=== PATIENT | male | born 1935 | race Caucasian/White ===

== ENCOUNTER 2018-01-21 08:54 | Observation (INO) | payer MEDICARE, BC ==
[2018-01-21] VITALS (17 sets, daily range): BP systolic 94–148; BP diastolic 58–82
[~2018-01-21] VITALS: Ht 177.8 cm; Wt 67.2 kg
[2018-01-21] MEDS ORDERED: COLE1TAB2 PO (09:32)
[2018-01-21] MEDS ORDERED: MAGN400T3 PO (09:32)
[2018-01-21] MEDS ORDERED: SIMV40TA3 PO (09:32)
[2018-01-21] MEDS ORDERED: CHOL10003 PO (09:32)
[2018-01-21 09:36] LABS: HEMATOCRIT 46.3 % (39.0-53.0); HEMOGLOBIN 15.6 g/dL (13.0-17.5); RED BLOOD COUNT 5.18 x10^6/uL (4.30-5.70); RED CELL DISTRIBUTION WIDTH 13.5 % (11.5-14.5); WHITE BLOOD COUNT 11.1 x10^3/uL (4.0-11.0)
[2018-01-21] MEDS ORDERED: BUDE10.22 IH (09:38)
[2018-01-21] MEDS ORDERED: AMLO5TAB7 PO (09:38)
[2018-01-21] MEDS ORDERED: CARV12.52 PO (09:38)
[2018-01-21] MEDS ORDERED: CARI350T PO (09:38)
[2018-01-21] MEDS ORDERED: OMEP40CA5 PO (09:38)
[2018-01-21] MEDS ORDERED: METF500T16 PO (09:38)
[2018-01-21] MEDS ORDERED: GLIM4TAB PO (09:38)
[2018-01-21 09:47] LABS: CALCIUM 9.9 mg/dL (8.5-10.1); CREATININE 1.1 mg/dL (0.7-1.3); GFR 64.2; POTASSIUM 4.3 mmol/L (3.5-5.1)
[2018-01-21 09:50] LABS: PROTHROMBIN TIME PATIENT 13.4 SEC (11.7-14.0)
[2018-01-21] MEDS ORDERED: LIDOCAINE 1% PF 2 ML VIAL. ONE (10:27)
[2018-01-21] MEDS ORDERED: IODIXANOL 320 MG/ML 100 ML VIAL. ONE ×2 (10:27→10:59)
[2018-01-21] MEDS ORDERED: HEPARIN for IV BOLUS 10,000 UNIT/10 ML VIAL. ONE (10:37)
[2018-01-21] MEDS ORDERED: fentaNYL PF VIAL 100 MCG/2 ML VIAL ONE (10:37)
[2018-01-21] MEDS ORDERED: VERAPAMIL 5 MG/2 ML VIAL. ONE (10:37)
[2018-01-21] MEDS ORDERED: MIDAZOLAM HCL/PF 2 MG/2 ML VIAL. ONE (10:37)
[2018-01-21] MEDS ORDERED: NITROGLYCERIN 200 MCG/2 ML SYRINGE FOR CATH/VASC LAB. ONE ×2 (10:37→11:09)
[2018-01-21] MEDS ORDERED: BIVALIRUDIN 250 MG VIAL. IV ONE ×2 (10:54→11:15)
[2018-01-21] MEDS ORDERED: NITROGLYCERIN 200 MCG/2 ML SYRINGE FOR CATH/VASC LAB. IART ONE (11:15)
[2018-01-21] MEDS ORDERED: VERAPAMIL 5 MG/2 ML VIAL. IART ONE (11:15)
[2018-01-21] MEDS ORDERED: ASPIRIN CHEWABLE 81 MG TABLET. PO ONE (11:15)
[2018-01-21] MEDS ORDERED: HEPARIN for IV BOLUS 10,000 UNIT/10 ML VIAL. IART ONE (11:15)
[2018-01-21] MEDS ORDERED: TICAGRELOR 90 MG TABLET. PO ONE (11:15)
[2018-01-21] MEDS ORDERED: fentaNYL PF VIAL 100 MCG/2 ML VIAL IV ONE (11:15)
[2018-01-21] MEDS ORDERED: IV NORMAL SALINE 500ML BAG 500 ML IV ONE (11:15)
[2018-01-21] MEDS ORDERED: MIDAZOLAM HCL/PF 2 MG/2 ML VIAL. IV ONE (11:15)
[2018-01-21] MEDS ORDERED: LIDOCAINE 1% PF 2 ML VIAL. INJ ONE (11:15)
[2018-01-21] MEDS ORDERED: IODIXANOL 320 MG/ML 100 ML VIAL. IART ONE (11:15)
[2018-01-21] MEDS ORDERED: TICAGRELOR 90 MG TABLET. ONE (11:25)
[2018-01-21] MEDS ORDERED: ASPIRIN 325 MG TABLET ONE (11:25)
[2018-01-21] MEDS ORDERED: ASPIRIN 325 MG TABLET PO ONE (11:30)
[2018-01-21] MEDS: CARVEDILOL 12.5 MG TABLET. PO SCH (17:00)
[2018-01-21] MEDS: BUDESONIDE 0.5 MG/2 ML NEBU. NEB SCH (19:27)
[2018-01-21] MEDS: ALBUTEROL SULFATE 2.5 MG/3 ML NEBU. NEB SCH (19:27)
[2018-01-21] MEDS ORDERED: NON FORMULARY ITEM (Budesonide/Formoterol Fumarate (Symbicort 80-4.5 Mcg Inhaler) 1 PUFF) IH SCH (21:00)
[2018-01-21] MEDS ORDERED: SIMVASTATIN 40 MG TABLET. PO SCH (21:00)
[2018-01-21] MEDS: CARISOPRODOL 350 MG TABLET PO SCH (21:27)
[2018-01-21] MEDS: TICAGRELOR 90 MG TABLET. PO SCH (22:56)
[2018-01-22 02:30] VITALS: BP 135/74
[2018-01-22] MEDS ORDERED: PANTOPRAZOLE 40 MG TABLET.DR. PO SCH (07:30)
[2018-01-22 07:37] VITALS: BP 124/77
[2018-01-22] MEDS ORDERED: ASPIRIN ENTERIC COATED 81 MG TABLET.DR. PO SCH (08:00)
[2018-01-22] MEDS: CARISOPRODOL 350 MG TABLET PO SCH (08:57)
[2018-01-22] MEDS: TICAGRELOR 90 MG TABLET. PO SCH (09:00)
[2018-01-22] MEDS ORDERED: CHOLECALCIFEROL (VITAMIN D3) 1,000 UNIT TABLET PO SCH (09:00)
[2018-01-22] MEDS ORDERED: MAGNESIUM OXIDE 400 MG TABLET PO SCH (09:00)
[2018-01-22] MEDS ORDERED: amLODIPine BESYLATE 5 MG TABLET PO SCH (09:00)
[2018-01-22] MEDS ORDERED: COLESTIPOL HCL 1 GM TABLET PO SCH (09:00)
[2018-01-22] MEDS ORDERED: GLIMEPIRIDE 2 MG TABLET. PO SCH (09:00)
[2018-01-22] MEDS: CARVEDILOL 12.5 MG TABLET. PO SCH (09:00)
[2018-01-22] MEDS: ALBUTEROL SULFATE 2.5 MG/3 ML NEBU. NEB SCH ×2 (09:06→12:33)
[2018-01-22] MEDS: BUDESONIDE 0.5 MG/2 ML NEBU. NEB SCH (09:07)
[2018-01-22 10:50] VITALS: BP 131/68
--- NOTE | 2018-01-22 12:25 | CARD ---
MR#: [id number] Date of Study: 01/21/2018 Ordering Physician: ISMAEL LEES, Referring Physician: ISMAEL LEES, Tech: RT Dilshad (R) APPROVED REPORT Technologist: Gregoria Womack RT (R) Nurse: Trena Howell R.N. Procedure(s) performed: moderate sedation: 54 minutes C, Coronary angiography, PCI of the LAD HISTORY : The patient is a 82 year-old male with a history of . INDICATION The indication(s) include : unstable angina . PROCEDURE NARRATIVE INFORMED CONSENT: After explaining the risks and benefits of the procedure and alternatives, informed consent was obtained. The patient was brought electively to the cardiac catheterization lab. A timeout was performed confi rming the patient's name, date of , procedure, and site of procedure. All necessary personnel w ere wearing the appropriate protective equipment and radiation monitor devices. (See nursing notes for medications administered). ACCESS: The right wrist was sterilely prepped and draped in the usual fashion. The right wrist was infiltrat ed with 1 mL of 2% lidocaine for subcutaneous anesthesia. A 6 [place]er Terumo glide sheath was inserte d into the right radial artery without difficulty. CORONARY ANGIOGRAPHY: Right and left coronary angiography was performed using a 6Fr TIG 4.0 catheter. Left ventricular en d diastolic pressure was obtained with a pigtail catheter and pullback was performed after left ventr iculography. All catheter exchanges and advancements were performed over a guidewire. FINDINGS: HEMODYNAMICS: LVEDP 17 mm Hg No gradient on LV to aortic pullback. AO: 128/78 LEFT VENTRICULOGRAM: EF 50% Anterobasal: Normal. Anterolateral: Severely hypokinetic. Apical: Mildly hypokinetic. Diaphragmatic: Normal Posterobasal: Normal CORONARY ANGIOGRAPHY: LM is a large caliber vessel with normal angiographic appearance. LAD is a large caliber vessel with a proximal 95% stenosis. D1 is a small to moderate caliber vessel with mild diffuse disease. LCx is a moderate caliber non-dominant vessel with mild diffuse irregularities of up to 20%. OM1 is a moderate caliber vessel with normal angiographic appearance. RCA is a large caliber dominant vessel with mild diffuse irregularities of up to 20%. RPDA and RPL are moderate caliber vessels with normal angiographic appearance. INTERVENTIONAL TECHNIQUE: Bivalirudin was used for an to regulation. Through a 6 [place]er EBU 3.5 guide catheter a 0.014 inch pro -water wire was advanced to the distal LAD. Balloon angioplasty was performed with a 3.0 x 15 mm ball oon and the lesion was then stented in the LAD with a 4.0 x 18 mm drug-eluting stent and postdilated with a 4.0 mm noncompliant balloon at high atmospheres. An IVUS was performed and this revealed excel lent stent apposition and expansion. CLOSURE: At case completion the right radial sheath was removed and a Terumo radial band was applied with 13 m l of air. The patient received Ticagrelor 180mg at case completion. COMPLICATIONS: The patient tolerated the procedure well and there were no immediate complications. Conclusion 1. 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 Successful PCI with implanatation of a 4.0/18 mm ANH, confirming excellent placement by IVUS. Recommendations ASA 81 mg daily Ticagrelor 90mg bid for 1 full year. High dose statin therapy Cardiac rehab. Supportive care. Signed by : Ismael Lees, Electronically Approved : 01/22/2018 12:24:47
[2018-01-22] MEDS ORDERED: ATOR40TA PO (12:56)
[2018-01-22] MEDS ORDERED: ASPI-612 PO (12:56)
[2018-01-22] MEDS ORDERED: TICA90TA PO (12:56)
--- NOTE | 2018-01-22 12:56 | PDOC3 ---
BROOKE LI IDENTIFICATION AND RECORDS COMMANDER 01/22/18 1256: Discharge Summary Visit Information Date of Admission: Jan 21, 2018 Date of Discharge: Jan 22, 2018 Admitting Diagnosis: Unstable angina, abnormal EKG Final Diagnosis CAD, S/P PCI/ANH to LAD Brief Hospital Course Allergies Allergies Coded Allergies Type Severity Reaction Last Updated Verified latex Allergy Intermediate rash/blisters, 01/21/18 Yes Vital Signs Vital Signs Date Time Temp Pulse Resp B/P (MAP) Pulse Ox O2 Delivery O2 Flow Rate FiO2 01/22/18 12:34 95 Room Air 01/22/18 10:50 98.5 100 18 131/68 (89) 98.5 01/21/18 18:25 2.0 Lab Results Laboratory Tests Test 01/21/18 09:20 White Blood Count 11.1 x10^3/uL (4.0-11.0) Red Blood Count 5.18 x10^6/uL (4.30-5.70) Hemoglobin 15.6 g/dL (13.0-17.5) Hematocrit 46.3 % (39.0-53.0) Mean Corpuscular Volume 90 fL (79-100) Mean Corpuscular Hemoglobin 30 pg (25-35) Mean Corpuscular Hemoglobin Concent 34 g/dL (31-37) Red Cell Distribution Width 13.5 % (11.5-14.5) Platelet Count 268 x10^3/uL (140-400) Prothrombin Time 13.4 SEC (11.7-14.0) Prothromb Time International Ratio 1.1 (0.8-1.1) Sodium Level 143 mmol/L (136-145) Potassium Level 4.3 mmol/L (3.5-5.1) Chloride Level 101 mmol/L (98-107) Carbon Dioxide Level 30 mmol/L (21-32) Anion Gap 12 (6-14) Blood Urea Nitrogen 29 mg/dL (8-26) Creatinine 1.1 mg/dL (0.7-1.3) Estimated GFR (Cockcroft-Gault) 64.2 Glucose Level 205 mg/dL (70-99) Calcium Level 9.9 mg/dL (8.5-10.1) Brief Hospital Course Mr. Queen is an 82 yo male admitted for planned C. He was seen in our office and noted with unstable angina features with abnormal EKG. [facility] performed and noted with proximal LAD lesion prompting PCI/ANH to LAD via right transradial approach. He tolerated procedure well without complications. Right wrist arteriotomy site intact with no erythema or swelling with intact neurovasculat status to right hand. VSS, ambulatory and no CP or SOA overnight and no rhythm ectopies. I did discussed with him the changes to his medications including switching from zocor to lipitor and addition of brilinta and ASA to his regimen. Also explained the need for timely interval separation of colestid use to avoid absorption issues with the rest of his medications and to be able to resume metformin tomorrow afternoon. Cardiac rehab has been encouraged with post [facility] discharge care. Rx provided for brilinta and lipitor both for immediate fill and mail in refill. Follow up in office in 4 weeks. Discharge Information Condition at Discharge: Stable Follow Up: Weeks (4) Disposition/Orders: D/C to Home Scheduled Amlodipine Besylate (Amlodipine Besylate) 5 Mg Tablet, 5 MG PO DAILY for high blood pressure, (Reported) Entered as Reported by: Ailyn Regalado on 01/21/18937 Last Taken: Unknown Dose on 01/21/18 Last Action: Continued on 01/21/181518 by BRIAN RODRIGEZ Aspirin (Aspirin Ec) 81 Mg Tablet.dr, 81 MG PO DAILYWBKFT for CAD, #30 Prescribed by: BROOKE LI on 01/22/18 1256 Atorvastatin Calcium (Lipitor) 40 Mg Tablet, 1 TAB PO QHS for CAD, #30 Ref 1 Prescribed by: BROOKE LI on 01/22/18 1256 Budesonide/Formoterol Fumarate (Symbicort 80-4.5 Mcg Inhaler) 10.2 Gm Hfa.aer.ad , 1 PUFF IH BID for copd, (Reported) Entered as Reported by: Ailyn Regalado on 01/21/18937 Last Action: Converted on 01/21/181518 by BRIAN RODRIGEZ Carisoprodol (Soma) 350 Mg Tablet, 1 TAB PO BID for pain, #60 (Reported) Entered as Reported by: Ailyn Regalado on 01/21/18937 Last Taken: Unknown Dose on 01/20/18 Last Action: Continued on 01/21/181518 by BRIAN RODRIGEZ Carvedilol (Carvedilol) 12.5 Mg Tablet, 1 TAB PO BID for lower heartate, #180 Ref 1 (Reported) Entered as Reported by: Ailyn Regalado on 01/21/18937 Last Taken: Unknown Dose on 01/21/18 Last Action: Continued on 01/21/181518 by BRIAN RODRIGEZ Cholecalciferol (Vitamin D3) (Vitamin D3) 1,000 Unit Tablet, 2,000 TAB PO DAILY for deficiency, #30 Ref 5 (Reported) Entered as Reported by: Ailyn Regalado on 01/21/18931 Last Taken: Unknown Dose on 01/21/18 Last Action: Continued on 01/21/181518 by BRIAN RDORIGEZ Colestipol Hcl (Colestipol Hcl) 1 Gm Tablet, 2 GM PO 1X for lowers cholesterol, (Reported) Entered as Reported by: Ailyn Regalado on 01/21/18931 Last Taken: Unknown Dose on 01/20/18 Last Action: Continued on 01/21/181518 by BRIAN RODRIGEZ Glimepiride (Amaryl) 4 Mg Tablet, 1 TAB PO DAILY for diabetic, #30 Ref 5 ( Reported) Entered as Reported by: Ailyn Regalado on 01/21/18937 Last Action: Converted on 01/21/181518 by BRIAN RODRIGEZ Magnesium Oxide (Magnesium Oxide) 400 Mg Tablet, 250 TAB PO DAILY for deficiency , #30 Ref 5 (Reported) Entered as Reported by: Ailyn Regalado on 01/21/18931 Last Taken: Unknown Dose on 01/21/18 Last Action: Converted on 01/21/181518 by BRIAN RODRIGEZ Metformin Hcl (Metformin Hcl) 500 Mg Tablet, 500 MG PO BIDWMEALS for ANTI- DIABETIC, Ref 0 (Reported) Entered as Reported by: Ailyn Regalado on 01/21/18937 Last Action: New Order on 01/21/18937 by Ailyn Regalado Omeprazole (Omeprazole) 40 Mg Capsule.dr, 1 CAP PO DAILY for GERD, #30 Ref 3 ( Reported) Entered as Reported by: Ailyn Regalado on 01/21/18937 Last Taken: Unknown Dose on 01/21/18 0800 Last Action: Converted on 1518 by BRIAN RODRIGEZ Ticagrelor (Brilinta) 90 Mg Tablet, 90 MG PO BID for CAD, #60 Prescribed by: BROOKE LI on 01/22/18 1256 Discontinued Medications Simvastatin (Simvastatin) 40 Mg Tablet, 1 TAB PO QHS for lowers cholesterol, # 30 Ref 5 (Reported) Entered as Reported by: Ailyn Sabine on 01/21/18 0932 Last Taken: Unknown Dose on 01/20/18 Last Action: Converted on 01/21/181518 by BRIAN RODRIGEZ Patient Instructions Patient Instructions GENERAL INSTRUCTIONS: 1. Your dressing should be removed prior to leaving the hospital. 2. It is OK to shower the day after your procedure. 3. If you received stents, be sure to carry your stent information card with you in your wallet/purse at all times. 4. Call the office immediately at [phone] if you notice any fever or if there is redness, worsening tenderness/pain, increased bruising, or drainage from the puncture site. 5. Should you have bleeding from the site, lie down immediately & put pressure on the site. The pressure should be hard enough to stop the bleeding. Have the nearest person call 911. DO NOT try to drive to the ER with active bleeding. 6. If you notice a change in color, coolness to touch, or loss of feeling in the affected extremity, come to the emergency room. Please have someone drive you or call 911 if no one is available. DO NOT drive yourself. 7. If you normally take glucophage (metformin), please do not take this medicine for 48 hours following your procedure. 8. DO NOT STOP TAKING YOUR PLAVIX OR ASPIRIN UNLESS IT IS CLEARED BY A SKIDDER OF YOUR HOSPITALITY HOUSE SUPERVISOR AT OUR OFFICE. 9. QUIT SMOKING: the [place], [employer], & [place] have cessation resources available on their websites 10. Please have someone available to drive you home from the hospital as you may be limited by sedation medications given during the procedure. Radial Artery (Wrist) access: 1. No pushing, pulling, lifting, typing, or anything that requires repetitive use/movement of the affected wrist for 3 days following your procedure. 2. OK to drive the day following your procedure. (This is because of effects of sedating medications.) Call the office at [phone] for any questions or concerns. ISMAEL POSADAS MD 01/25/18 2134: Discharge Summary Brief Hospital Course Brief Hospital Course Late entry for 01/22/2018 Pt. seen and examined. Agree with above PROGRAM THERAPIST note. DC time > 30 min BROOKE LI APRN Jan 22, 2018 12:56 ISMAEL POSADAS MD Jan 25, 2018 21:34
[2018-01-22] MEDS ORDERED: GABAPENTIN 100 MG CAPSULE. PO SCH (14:00)
[2018-01-22] MEDS ORDERED: LORazepam 0.5 MG TABLET PO PRN (14:00)
[2018-01-22] MEDS ORDERED: LORazepam 1 MG TABLET PO PRN (14:00)
== END 2018-01-22 13:55 | disposition home or self-care (01) ==
LOC: CCL 08:54 → OBSVTOIN 12:30 → INTOOBSV 12:30 → 2 NORTH 12:30
PROVIDERS: ADMIT Internal Medicine Cardiovascular Disease; ATTEND Internal Medicine Cardiovascular Disease
DX: I25.110 Atherosclerotic heart disease of native coronary artery with unstable angina pectoris (principal); Z91.040 Latex allergy status
CPT/HCPCS: 36415; 80048; 85027; 85610; 93458; 94640; 94760; 96374; 96375; C1713; C1725; C1753; C1769; C1887; C1892; C9600; G0378; G0379; J0583; J1644; J2250; J3010; J3490; J7040; J7613; J7626; 37252; 92928; 99152; 99153

== ENCOUNTER → 2018-03-08 | Outpatient (CLI) | payer MEDICARE, BC ==
[~2018-03-08] MED LIST: AMLO5TAB7 PO; ASPI-612 PO; ATOR40TA PO; BUDE10.22 IH; CARI350T PO; CARV12.511 PO; CHOL10003 PO; COLE1TAB2 PO; GLIM4TAB PO; MAGN400T3 PO; METF500T16 PO; OMEP40CA5 PO; SIMV40TA3 PO; TICA90TA PO
--- NOTE | 2018-03-08 16:32 | RAD ---
PA and lateral chest x-ray without comparison for dyspnea and shortness of breath for the past couple of months. FINDINGS: There is mild hyperinflation. No pneumothorax, pleural effusion, congestive heart failure, or focal infiltrate is definitely identified. Cardiomediastinum is grossly unremarkable. No significant soft tissue or osseous abnormalities are seen. Prior cholecystectomy. IMPRESSION: 1. Mild hyperinflation with no acute cardiopulmonary abnormality. Electronically signed by: Nigel Johnson MD (03/08/2018 4:28 PM) [facility]
== END | disposition home or self-care (01) ==
LOC: RAD 10:04
PROVIDERS: ATTEND Internal Medicine Pulmonary Disease
DX: R06.00 Dyspnea, unspecified (principal); Z90.49 Acquired absence of other specified parts of digestive tract
CPT/HCPCS: 71046

== ENCOUNTER 2018-04-20 17:13 | Inpatient (IN) | payer MEDICARE, BC ==
[~2018-04-20] VITALS: Ht 177.8 cm; Wt 61.8 kg
[~2018-04-20 17:13] MED LIST changes: +AMLO5TAB10 PO; -AMLO5TAB7 PO
[2018-04-20] MEDS ORDERED: MORPHINE SULFATE 4 MG/ML VIAL. IV/SQ PRN (18:15)
[2018-04-20] MEDS ORDERED: PIPERACILLIN/TAZOBACTAM 4.5 GM in IV NORMAL SALINE 100ML 100 ML IV ONE (18:15)
[2018-04-20] MEDS ORDERED: VANCOMYCIN PER PHARMACY MC ONE (18:15)
[2018-04-20] MEDS ORDERED: VANCOMYCIN 1.5 GM in IV NORMAL SALINE 500ML BAG 500 ML IV ONE (18:30)
[2018-04-20 18:35] LABS: BASO # 0.1 x10^3/uL (0.0-0.2); BASO % 0 % (0-3); EOS % 0 % (0-3); HEMATOCRIT 38.1 % (39.0-53.0); HEMOGLOBIN 12.4 g/dL (13.0-17.5); LYMPH # 0.6 x10^3/uL (1.0-4.8); LYMPH % 5 % (24-48); MEAN CORPUSCULAR HEMOGLOBIN 29 pg (25-35); MEAN CORPUSCULAR HGB CONC 33 g/dL (31-37); MEAN CORPUSCULAR VOLUME 88 fL (79-100); MONO # 0.5 x10^3/uL (0.0-1.1); MONO % 3 % (0-9); NEUT # 12.3 x10^3uL (1.8-7.7); NEUT % 92 % (31-73); PLATELET COUNT 379 x10^3/uL (140-400); RED BLOOD COUNT 4.31 x10^6/uL (4.30-5.70); RED CELL DISTRIBUTION WIDTH 13.9 % (11.5-14.5); WHITE BLOOD COUNT 13.4 x10^3/uL (4.0-11.0)
[2018-04-20 18:42] LABS: BILIRUBIN,URINE NEGATIVE (NEG); CLARITY,URINE CLEAR; COLOR,URINE YELLOW; NITRITE,URINE NEGATIVE (NEG); PROTEIN,URINE NEGATIVE (NEG-TRACE); UROBILINOGEN,URINE 0.2 mg/dL (0.2 mg/dL)
--- NOTE | 2018-04-20 18:48 | PHYS DOC ---
Past Medical History Past Medical History: CAD, COPD, Diabetes-Type II, High Cholesterol, Hypertension, Other Additional Past Medical Histor: enlarged prostate (BON MELARA APRN) Past Surgical History: Cholecystectomy, TURP, Other Additional Past Surgical Histo: cardiac cath with stent; (BON MELARA APRN) Alcohol Use: Rarely Drug Use: None (BON MELARA APRN) Adult General Chief Complaint Chief Complaint: ABDOMINAL PAIN HPI HPI Patient is a 82 year old male with history of hypertension, high cholesterol, CAD, COPD, diabetes type 2, who presents today stating he had an outpatient CT of the abdomen and pelvic and was noted to have perforated bowel and multiple abscesses in his stomach. Patient states he has had nausea, vomiting, diarrhea and bloody stools intermittently for 2 weeks. He states he has lost approximately 20 pounds since February without trying. Patient denies any fever. (BON MELARA APRN) Review of Systems Review of Systems Constitutional: Denies fever or chills [] Eyes: Denies change in visual acuity, redness, or eye pain [] HENT: Denies nasal congestion or sore throat [] Respiratory: Denies cough or shortness of breath [] Cardiovascular: No additional information not addressed in HPI [] GI: Reports bilateral lower abdominal pain, nausea, vomiting, diarrhea, bloody stools] : Denies dysuria or hematuria [] Musculoskeletal: Denies back pain or joint pain [] Integument: Denies rash or skin lesions [] Neurologic: Denies headache, focal weakness or sensory changes [] All other systems were reviewed and found to be within normal limits, except as documented in this note. (BON MELARA APRN) Current Medications Current Medications Current Medications Medications (Trade) Dose Ordered Sig/Annie Start Time Stop Time Status Last Admin Dose Admin Insulin Human Regular (HumuLIN R VIAL) 8 unit 1X ONCE 04/20/18 19:15 04/20/18 19:29 DC 04/20/18 19:33 8 UNIT Morphine Sulfate (Morphine Sulfate) 4 mg PRN Q15MIN PRN 04/20/18 18:15 04/21/18 18:14 Piperacillin Sod/ Tazobactam Sod 4.5 gm/Sodium Chloride 100 ml @ 200 mls/hr 1X ONCE 04/20/18 18:15 04/20/18 18:44 DC 04/20/18 18:58 200 MLS/HR Sodium Chloride 1,000 ml @ 2,190 mls/hr Q28M 04/20/18 18:09 04/20/18 19:06 DC 04/20/18 19:39 2,190 MLS/HR Vancomycin HCl (Vanco Per Pharmacy) 1 each 1X ONCE 04/20/18 18:15 04/20/18 18:16 Cancel Vancomycin HCl 1.5 gm/Sodium Chloride 500 ml @ 250 mls/hr 1X ONCE 04/20/18 18:30 04/20/18 20:29 DC 04/20/18 19:35 250 MLS/HR (RIKY ALBRIGHT DO) Allergies Allergies Allergies Coded Allergies Type Severity Reaction Last Updated Verified latex Allergy Intermediate rash/blisters, 01/21/18 Yes (RIKY ALBRIGHT DO) Physical Exam Physical Exam Constitutional: Well developed, well nourished, no acute distress, non-toxic appearance. [] HENT: Normocephalic, atraumatic, bilateral external ears normal, oropharynx moist, no oral exudates, nose normal. [] Eyes: PERRLA, EOMI, conjunctiva normal, no discharge. [] Neck: Normal range of motion, no tenderness, supple, no stridor. [] Cardiovascular:Heart rate regular rhythm, no murmur [] Lungs & Thorax: Bilateral breath sounds clear to auscultation [] Abdomen: Bowel sounds normal, soft, diffuse tenderness bilateral lower abdomen worse on the right lower quadrant, negative psoas sign, negative obturator sign , no masses, no pulsatile masses. [] Skin: Warm, dry, no erythema, no rash. [] Back: No tenderness, no CVA tenderness. [] Extremities: No tenderness, no cyanosis, no clubbing, ROM intact, no edema. [] Neurologic: Alert and oriented X 3, normal motor function, normal sensory function, no focal deficits noted. [] Psychologic: Affect normal, judgement normal, mood normal. [] (BON MELARA APRN) Current Patient Data Vital Signs Vital Signs Date Time Temp Pulse Resp B/P (MAP) Pulse Ox O2 Delivery O2 Flow Rate FiO2 04/20/18 19:21 114 16 147/74 (98) 94 Room Air 04/20/18 17:30 98.8 98.8 (RIKY ALBRIGHT DO) Lab Values Laboratory Tests Test 04/20/18 17:20 04/20/18 18:20 04/20/18 18:48 Urine Collection Type Unknown Urine Color Yellow Urine Clarity Clear Urine pH 5.0 Urine Specific Gates >=1.030 Urine Protein Negative mg/dL (NEG-TRACE) Urine Glucose (UA) >=1000 mg/dL (NEG) Urine Ketones (Stick) Trace mg/dL (NEG) Urine Blood Negative (NEG) Urine Nitrite Negative (NEG) Urine Bilirubin Negative (NEG) Urine Urobilinogen Dipstick 0.2 mg/dL (0.2 mg/dL) Urine Leukocyte Esterase Negative (NEG) Urine RBC 0 /HPF (0-2) Urine WBC 0 /HPF (0-4) Urine Bacteria 0 /HPF (0-FEW) White Blood Count 13.4 x10^3/uL (4.0-11.0) H Red Blood Count 4.31 x10^6/uL (4.30-5.70) Hemoglobin 12.4 g/dL (13.0-17.5) L Hematocrit 38.1 % (39.0-53.0) L Mean Corpuscular Volume 88 fL (79-100) Mean Corpuscular Hemoglobin 29 pg (25-35) Mean Corpuscular Hemoglobin Concent 33 g/dL (31-37) Red Cell Distribution Width 13.9 % (11.5-14.5) Platelet Count 379 x10^3/uL (140-400) Neutrophils (%) (Auto) 92 % (31-73) H Lymphocytes (%) (Auto) 5 % (24-48) L Monocytes (%) (Auto) 3 % (0-9) Eosinophils (%) (Auto) 0 % (0-3) Basophils (%) (Auto) 0 % (0-3) Neutrophils # (Auto) 12.3 x10^3uL (1.8-7.7) H Lymphocytes # (Auto) 0.6 x10^3/uL (1.0-4.8) L Monocytes # (Auto) 0.5 x10^3/uL (0.0-1.1) Eosinophils # (Auto) 0.0 x10^3/uL (0.0-0.7) Basophils # (Auto) 0.1 x10^3/uL (0.0-0.2) Segmented Neutrophils % 85 % (35-66) H Band Neutrophils % 11 % (0-9) H Lymphocytes % 1 % (24-48) L Monocytes % 1 % (0-10) Myelocytes % 2 % (0-0) H Platelet Estimate Adequate (ADEQUATE) Sodium Level 134 mmol/L (136-145) L Potassium Level 4.4 mmol/L (3.5-5.1) Chloride Level 95 mmol/L (98-107) L Carbon Dioxide Level 28 mmol/L (21-32) Anion Gap 11 (6-14) Blood Urea Nitrogen 28 mg/dL (8-26) H Creatinine 1.1 mg/dL (0.7-1.3) Estimated GFR (Cockcroft-Gault) 64.2 BUN/Creatinine Ratio 25 (6-20) H Glucose Level 529 mg/dL (70-99) *H Lactic Acid Level 1.4 mmol/L (0.4-2.0) Calcium Level 9.3 mg/dL (8.5-10.1) Total Bilirubin 0.4 mg/dL (0.2-1.0) Aspartate Amino Transferase (AST) 82 U/L (15-37) H Alanine Aminotransferase (ALT) 81 U/L (16-63) H Alkaline Phosphatase 112 U/L (46-116) Total Protein 7.4 g/dL (6.4-8.2) Albumin 2.7 g/dL (3.4-5.0) L Albumin/Globulin Ratio 0.6 (1.0-1.7) L Procalcitonin 0.15 ng/mL (0.00-0.10) H Stool Occult Blood Positive (NEG) Laboratory Tests 04/20/18 18:20 Laboratory Tests 04/20/18 18:20 (RIKY ALBRIGHT DO) EKG EKG 17:[address] Albright sinus tachycardia HR 125 no STEMI (BON MELARA APRN) Radiology/Procedures Radiology/Procedures []PROCEDURE: PORTABLE CHEST 1V Indication:ER PATIENT. HYPOGASTRIC PAIN. HX HTN, COPD, DIABETES, CORONARY STENT. PRIOR XRAY. TECHNIQUE:Portable AP chest X-ray COMPARISON:03/08/2018 FINDINGS: Heart is normal in size. Lungs are hyperinflated. No focal consolidation. No pneumothorax or pleural effusion. Visualized bony thorax within normal limits. IMPRESSION: COPD. Superimposed atypical/viral infection not ruled out. Electronically signed by: Lexx Norwood DO (04/20/2018 6:51 PM) [facility] DICTATED and SIGNED BY: LEXX NORWOOD DO DATE: 04/20/18 185 (BON MELARA APRN) Course & Med Decision Making Course & Med Decision Making Pertinent Labs and Imaging studies reviewed. (See chart for details) This is a 82-year-old male patient presenting to the ED today from home. Patient had an outpatient CT done and was informed he has perforated bowel and multiple abscesses in his abdomen. Patient states his had abdominal pain specifically on bilateral lower abdomen, nausea vomiting diarrhea and bloody stools for 2 weeks. On arrival to the ED temperature 98.8 heart rate13, resp. 20 room air blood pressure 133/89 O2 sats 95% on room air. Patient was started on sepsis protocol including IV fluids, vancomycin and Zosyn. CBC with a WBC of 13.4 and a left shift, hemoglobin 12.4, hematocrit 38.1, glucose 529, anion gap is normal, AST 82, ALT 81, lactic acid 1.4, pro calcitonin 0.15. Consulted with Dr. Negrete who accepted patient for admission Consulted with surgery Dr. Frey who will follow-up with patient Routine consult placed for GI (BON MELARA APRN) Dragon Disclaimer Dragon Disclaimer This electronic medical record was generated, in whole or in part, using a voice recognition dictation system. (BON MELARA APRN) Departure Departure Impression: Primary Impression: Perforation bowel Additional Impressions: Abdominal abscess Diverticulosis Hyperglycemia Disposition: 09 ADMITTED INPATIENT Condition: STABLE Referrals: CARISSA OVALLE MD (PCP) Attending Signature Attending Signature I have reviewed the PA/SECURITIES CLERK's note and plan of care. I was available for consultation as needed during the patient's visit in the emergency department. I agree with the clinical impression, plan, and disposition. (RIKY ALBRIGHT DO) Problem Qualifiers Additional Impressions: Diverticulosis Diverticulosis site: unspecified location Diverticulosis bleeding: diverticulosis with bleeding Qualified Codes: K57.91 - Diverticulosis of intestine, part unspecified, without perforation or abscess with bleeding BON MELARA APRN Apr 20, 2018 18:48 RIKY ALBRIGHT DO Apr 21, 2018 09:22
[2018-04-20 18:51] LABS: BACTERIA,URINE 0 /HPF (0-FEW); RBC,URINE 0 /HPF (0-2); WBC,URINE 0 /HPF (0-4)
--- NOTE | 2018-04-20 18:55 | RAD ---
Indication:ER PATIENT. HYPOGASTRIC PAIN. HX HTN, COPD, DIABETES, CORONARY STENT. PRIOR XRAY. TECHNIQUE:Portable AP chest X-ray COMPARISON:03/08/2018 FINDINGS: Heart is normal in size. Lungs are hyperinflated. No focal consolidation. No pneumothorax or pleural effusion. Visualized bony thorax within normal limits. IMPRESSION: COPD. Superimposed atypical/viral infection not ruled out. Electronically signed by: Lxex Norwood DO (04/20/2018 6:51 PM) [facility]
[2018-04-20 18:59] LABS: ALBUMIN 2.7 g/dL (3.4-5.0); ALBUMIN/GLOBULIN RATIO 0.6 (1.0-1.7); CALCIUM 9.3 mg/dL (8.5-10.1); CREATININE 1.1 mg/dL (0.7-1.3); GFR 64.2; POTASSIUM 4.4 mmol/L (3.5-5.1); TOTAL BILIRUBIN 0.4 mg/dL (0.2-1.0); TOTAL PROTEIN 7.4 g/dL (6.4-8.2)
[2018-04-20] MEDS: IV NORMAL SALINE 1000ML BAG 1,000 ML IV SCH ×4 (19:01→21:36)
[2018-04-20] MEDS ORDERED: INSULIN REGULAR 100 UNIT/ML 3ML VIAL. SQ ONE (19:15)
--- NOTE | 2018-04-20 19:19 | PDOC1 ---
History and Physical Date of Admission Date of Admission DATE: 04/20/18 TIME: 19:16 Identification/Chief Complaint Chief Complaint seen in er , sent by DR OVALLE,S OFFICE BY AMBULANCE 82 year old male with history of hypertension, high cholesterol, CAD, COPD, diabetes type 2, who presents today stating he had an outpatient CT of the abdomen and pelvic and was noted to have perforated bowel and multiple abscesses in his stomach TODAY . Patient states his had nausea vomiting and diarrhea intermittently for 2 weeks. He states he has lost approximately 40 pounds since March 09 Patient denies any fever. He states his had bloody stools for the last 2 weeks. Ate a straberry shake before coming here, and toast, states he has had severe pain on and off x 2 weeks Past Medical History Past Medical History Past Medical History Past Medical History: CAD, COPD, Diabetes-Type II, High Cholesterol, Hypertension, Other Additional Past Medical Histor: enlarged prostate Past Surgical History: Cholecystectomy, TURP, Other Additional Past Surgical Histo: cardiac cath with stent; Alcohol Use: Rarely Drug Use: None FAMILY HX HTN STOPPED SMOKING 39 YRS AGO Cardiovascular: CAD Family History Family History: High Cholestrol Social History Smoke: Quit ALCOHOL: occassional Drugs: None Current Medications Current Medications Current Medications Sodium Chloride 1,000 ml @ 2,190 mls/hr Q28M IV Last administered on at 19:01; Start 04/20/18 at 18:09; Stop 04/20/18 at 19:06; Status DC Piperacillin Sod/ Tazobactam Sod 4.5 gm/Sodium Chloride 100 ml @ 200 mls/hr 1X ONCE IV Last administered on 04/20/18at 18:58; Start 04/20/18 at 18:15; Stop 04/20/18 at 18:44; Status DC Vancomycin HCl (Vanco Per Pharmacy) 1 each 1X ONCE MC ; Start 04/20/18 at 18:15 ; Stop 04/20/18 at 18:22; Status DC Morphine Sulfate (Morphine Sulfate) 4 mg PRN Q15MIN PRN IV/SQ PAIN GREATER THAN 3/10; Start 04/20/18 at 18:15; Stop 04/21/18 at 18:14 Vancomycin HCl 1.5 gm/Sodium Chloride 500 ml @ 250 mls/hr 1X ONCE IV ; Start 04/20/18 at 18:30; Stop 04/20/18 at 20:29 Active Scripts Active Lipitor (Atorvastatin Calcium) 40 Mg Tablet 1 Tab PO QHS Aspirin Ec (Aspirin) 81 Mg Tablet. 81 Mg PO DAILYWBKFT Brilinta (Ticagrelor) 90 Mg Tablet 90 Mg PO BID Reported Soma (Carisoprodol) 350 Mg Tablet 1 Tab PO BID Omeprazole 40 Mg Capsule.dr 1 Cap PO DAILY Symbicort 80-4.5 Mcg Inhaler (Budesonide/Formoterol Fumarate) 10.2 Gm Hfa.aer.ad 1 Puff IH BID Metformin Hcl 500 Mg Tablet 500 Mg PO BIDWMEALS Amaryl (Glimepiride) 4 Mg Tablet 1 Tab PO DAILY Amlodipine Besylate 5 Mg Tablet 5 Mg PO DAILY Carvedilol 12.5 Mg Tablet 1 Tab PO BID Colestipol Hcl 1 Gm Tablet 2 Gm PO 1X Magnesium Oxide 400 Mg Tablet 250 Tab PO DAILY Vitamin D3 (Cholecalciferol (Vitamin D3)) 1,000 Unit Tablet 2,000 Tab PO DAILY Allergies Allergies: Coded Allergies: latex (Verified Allergy, Intermediate, rash/blisters, , 01/21/18) ROS Review of System Review of Systems Review of Systems Constitutional: Denies fever or chills [] Eyes: Denies change in visual acuity, redness, or eye pain [] HENT: Denies nasal congestion or sore throat [] Respiratory: Denies cough or shortness of breath [] Cardiovascular: No additional information not addressed in HPI [] GI: Denies abdominal pain, nausea, vomiting, bloody stools or diarrhea [] : Denies dysuria or hematuria [] Musculoskeletal: Denies back pain or joint pain [] Integument: Denies rash or skin lesions [] Neurologic: Denies headache, focal weakness or sensory changes [] 14 PT systems were reviewed and found to be within normal limits, except as documented General: YES: Chills Hematological and Lymphatic: No: Bleeding Problems, Blood Clots, Blood Transfusions, Brusing, Night Sweats, Pallor, Swollen Lymph Nodes, Other Cardiovascular: No Chest Pain, No Palpitations, No Orthopnea, No Paroxysmal Noc. Dyspnea, No Edema, No Lt Headedness, No Other Gastrointestinal: Yes Abdominal Pain Physical Exam Physical Exam Physical Exam Constitutional: Well developed, well nourished, MILD acute distress, non-toxic appearance. [] HENT: Normocephalic, atraumatic, bilateral external ears normal, oropharynx moist, no oral exudates, nose normal. [] Eyes: PERRLA, EOMI, conjunctiva normal, no discharge. [] Neck: Normal range of motion, no tenderness, supple, no stridor. [] Cardiovascular:Heart rate regular rhythm, no murmur [] Lungs & Thorax: Bilateral breath sounds clear to auscultation [] Abdomen: Bowel sounds normal, soft, no tenderness, no masses, no pulsatile masses. MILD TENDERNESS[] Skin: Warm, dry, no erythema, no rash. [] Back: No tenderness, no CVA tenderness. [] Extremities: No tenderness, no cyanosis, no clubbing, ROM intact, no edema. [] Neurologic: Alert and oriented X 3, normal motor function, normal sensory function, no focal deficits noted. [] Psychologic: Affect normal, judgement normal, mood normal. [] General: Oriented X3, Cooperative, mild distress HEENT: EOMI, Mucous membr. moist/pink Lungs: Clear to auscultation, Normal air movement Heart: RRR, no gallops Breasts: Not examined Abdomen: Soft Rectal Exam: not examined PELVIC: Examination not indicated Extremities: No cyanosis Neuro: Normal speech, Normal tone, Cranial nerves 3-12 NL Psych/Mental Status: Mental status NL, Mood NL Vitals Vitals Vital Signs Date Time Temp Pulse Resp B/P (MAP) Pulse Ox O2 Delivery O2 Flow Rate FiO2 04/20/18 18:53 122 16 132/84 (100) 96 Room Air 04/20/18 17:30 98.8 98.8 Labs Labs Laboratory Tests Test 04/20/18 17:20 04/20/18 18:20 Urine Collection Type Unknown Urine Color Yellow Urine Clarity Clear Urine pH 5.0 Urine Specific [place] >=1.030 Urine Protein Negative mg/dL (NEG-TRACE) Urine Glucose (UA) >=1000 mg/dL (NEG) Urine Ketones (Stick) Trace mg/dL (NEG) Urine Blood Negative (NEG) Urine Nitrite Negative (NEG) Urine Bilirubin Negative (NEG) Urine Urobilinogen Dipstick 0.2 mg/dL (0.2 mg/dL) Urine Leukocyte Esterase Negative (NEG) Urine RBC 0 /HPF (0-2) Urine WBC 0 /HPF (0-4) Urine Bacteria 0 /HPF (0-FEW) White Blood Count 13.4 x10^3/uL (4.0-11.0) Red Blood Count 4.31 x10^6/uL (4.30-5.70) Hemoglobin 12.4 g/dL (13.0-17.5) Hematocrit 38.1 % (39.0-53.0) Mean Corpuscular Volume 88 fL (79-100) Mean Corpuscular Hemoglobin 29 pg (25-35) Mean Corpuscular Hemoglobin Concent 33 g/dL (31-37) Red Cell Distribution Width 13.9 % (11.5-14.5) Platelet Count 379 x10^3/uL (140-400) Neutrophils (%) (Auto) 92 % (31-73) Lymphocytes (%) (Auto) 5 % (24-48) Monocytes (%) (Auto) 3 % (0-9) Eosinophils (%) (Auto) 0 % (0-3) Basophils (%) (Auto) 0 % (0-3) Neutrophils # (Auto) 12.3 x10^3uL (1.8-7.7) Lymphocytes # (Auto) 0.6 x10^3/uL (1.0-4.8) Monocytes # (Auto) 0.5 x10^3/uL (0.0-1.1) Eosinophils # (Auto) 0.0 x10^3/uL (0.0-0.7) Basophils # (Auto) 0.1 x10^3/uL (0.0-0.2) Sodium Level 134 mmol/L (136-145) Potassium Level 4.4 mmol/L (3.5-5.1) Chloride Level 95 mmol/L (98-107) Carbon Dioxide Level 28 mmol/L (21-32) Anion Gap 11 (6-14) Blood Urea Nitrogen 28 mg/dL (8-26) Creatinine 1.1 mg/dL (0.7-1.3) Estimated GFR (Cockcroft-Gault) 64.2 BUN/Creatinine Ratio 25 (6-20) Glucose Level 529 mg/dL (70-99) Lactic Acid Level 1.4 mmol/L (0.4-2.0) Calcium Level 9.3 mg/dL (8.5-10.1) Total Bilirubin 0.4 mg/dL (0.2-1.0) Aspartate Amino Transf (AST/SGOT) 82 U/L (15-37) Alanine Aminotransferase (ALT/SGPT) 81 U/L (16-63) Alkaline Phosphatase 112 U/L (46-116) Total Protein 7.4 g/dL (6.4-8.2) Albumin 2.7 g/dL (3.4-5.0) Albumin/Globulin Ratio 0.6 (1.0-1.7) Procalcitonin 0.15 ng/mL (0.00-0.10) Laboratory Tests Test 04/20/18 17:20 04/20/18 18:20 Urine Collection Type Unknown Urine Color Yellow Urine Clarity Clear Urine pH 5.0 Urine Specific [place] >=1.030 Urine Protein Negative mg/dL (NEG-TRACE) Urine Glucose (UA) >=1000 mg/dL (NEG) Urine Ketones (Stick) Trace mg/dL (NEG) Urine Blood Negative (NEG) Urine Nitrite Negative (NEG) Urine Bilirubin Negative (NEG) Urine Urobilinogen Dipstick 0.2 mg/dL (0.2 mg/dL) Urine Leukocyte Esterase Negative (NEG) Urine RBC 0 /HPF (0-2) Urine WBC 0 /HPF (0-4) Urine Bacteria 0 /HPF (0-FEW) White Blood Count 13.4 x10^3/uL (4.0-11.0) Red Blood Count 4.31 x10^6/uL (4.30-5.70) Hemoglobin 12.4 g/dL (13.0-17.5) Hematocrit 38.1 % (39.0-53.0) Mean Corpuscular Volume 88 fL (79-100) Mean Corpuscular Hemoglobin 29 pg (25-35) Mean Corpuscular Hemoglobin Concent 33 g/dL (31-37) Red Cell Distribution Width 13.9 % (11.5-14.5) Platelet Count 379 x10^3/uL (140-400) Neutrophils (%) (Auto) 92 % (31-73) Lymphocytes (%) (Auto) 5 % (24-48) Monocytes (%) (Auto) 3 % (0-9) Eosinophils (%) (Auto) 0 % (0-3) Basophils (%) (Auto) 0 % (0-3) Neutrophils # (Auto) 12.3 x10^3uL (1.8-7.7) Lymphocytes # (Auto) 0.6 x10^3/uL (1.0-4.8) Monocytes # (Auto) 0.5 x10^3/uL (0.0-1.1) Eosinophils # (Auto) 0.0 x10^3/uL (0.0-0.7) Basophils # (Auto) 0.1 x10^3/uL (0.0-0.2) Sodium Level 134 mmol/L (136-145) Potassium Level 4.4 mmol/L (3.5-5.1) Chloride Level 95 mmol/L (98-107) Carbon Dioxide Level 28 mmol/L (21-32) Anion Gap 11 (6-14) Blood Urea Nitrogen 28 mg/dL (8-26) Creatinine 1.1 mg/dL (0.7-1.3) Estimated GFR (Cockcroft-Gault) 64.2 BUN/Creatinine Ratio 25 (6-20) Glucose Level 529 mg/dL (70-99) Lactic Acid Level 1.4 mmol/L (0.4-2.0) Calcium Level 9.3 mg/dL (8.5-10.1) Total Bilirubin 0.4 mg/dL (0.2-1.0) Aspartate Amino Transf (AST/SGOT) 82 U/L (15-37) Alanine Aminotransferase (ALT/SGPT) 81 U/L (16-63) Alkaline Phosphatase 112 U/L (46-116) Total Protein 7.4 g/dL (6.4-8.2) Albumin 2.7 g/dL (3.4-5.0) Albumin/Globulin Ratio 0.6 (1.0-1.7) Procalcitonin 0.15 ng/mL (0.00-0.10) Images Images INDINGS: HEMODYNAMICS: LVEDP 17 mm Hg No gradient on LV to aortic pullback. AO: 128/78 LEFT VENTRICULOGRAM: EF 50% Anterobasal: Normal. Anterolateral: Severely hypokinetic. Apical: Mildly hypokinetic. Diaphragmatic: Normal Posterobasal: Normal CORONARY ANGIOGRAPHY: LM is a large caliber vessel with normal angiographic appearance. LAD is a large caliber vessel with a proximal 95% stenosis. D1 is a small to moderate caliber vessel with mild diffuse disease. LCx is a moderate caliber non-dominant vessel with mild diffuse irregularities of up to 20%. OM1 is a moderate caliber vessel with normal angiographic appearance. RCA is a large caliber dominant vessel with mild diffuse irregularities of up to 20%. RPDA and RPL are moderate caliber vessels with normal angiographic appearance. INTERVENTIONAL TECHNIQUE: Bivalirudin was used for an to regulation. Through a 6 Cymro EBU 3.5 guide catheter a 0.014 inch pro-water wire was advanced to the distal LAD. Balloon angioplasty was performed with a 3.0 x 15 mm balloon and the lesion was then stented in the LAD with a 4.0 x 18 mm drug-eluting stent and postdilated with a 4.0 mm noncompliant balloon at high atmospheres. An IVUS was performed and this revealed excellent stent apposition and expansion. CLOSURE: At case completion the right radial sheath was removed and a Terumo radial band was applied with 13 ml of air. The patient received Ticagrelor 180mg at case completion. COMPLICATIONS: The patient tolerated the procedure well and there were no immediate complications. Conclusion 1. 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 Successful PCI with implanatation of a 4.0/18 mm ANH, confirming excellent placement by IVUS. Recommendations ASA 81 mg daily Ticagrelor 90mg bid for 1 full year. High dose statin therapy Cardiac rehab. Supportive care. Signed by : Ronald Lees, Electronically Approved : 01/22/2018 12:24:47 Indication:ER PATIENT. HYPOGASTRIC PAIN. HX HTN, COPD, DIABETES, CORONARY STENT. PRIOR XRAY. TECHNIQUE:Portable AP chest X-ray COMPARISON:03/08/2018 FINDINGS: Heart is normal in size. Lungs are hyperinflated. No focal consolidation. No pneumothorax or pleural effusion. Visualized bony thorax within normal limits. IMPRESSION: COPD. Superimposed atypical/viral infection not ruled out. Electronically signed by: Lexx Norwood DO (04/20/2018 6:51 PM) [facility] VTE Prophylaxis Ordered VTE Prophylaxis Devices: No VTE Pharmacological Prophylaxi: Contraindicated Assessment/Plan Assessment/Plan IMPRESSION 1. Acute perf bowel\prob diverticula 2. multipel abscesses 3, diabetes, hyperglycemia 4. CAD post stent 2018 plan surgery called rita by ER staff iv vanc and kip npo cardiology consult ID consult 8 units reg insulin sq now, chk glucose in 1 hr ASHIA DEVRIES MD Apr 20, 2018 19:18
[2018-04-20 19:22] LABS: FECAL OB PT POSITIVE (NEG)
[2018-04-20] MEDS ORDERED: DEXTROSE 50% 25 GM / 50ML DISP.SYRIN. IV PRN (19:45)
[2018-04-20 20:00] LABS: % BANDS 11 % (0-9); % LYMPHS 1 % (24-48); % MONOS 1 % (0-10); % MYELOS 2 % (0-0); % SEGS 85 % (35-66); PLT ESTIMATE ADEQUATE (ADEQUATE)
[2018-04-20] MEDS ORDERED: MORPHINE SULFATE 4 MG/ML VIAL. IV PRN (20:00)
[2018-04-20] MEDS ORDERED: IV NORMAL SALINE 1000ML BAG 1,000 ML IV ONE (20:00)
[2018-04-20] MEDS ORDERED: ONDANSETRON PF 4 MG/2 ML VIAL. IV PRN (20:00)
--- NOTE | 2018-04-20 20:15 | NUR ---
Patient arrived to room 114 via rsecretary accompanied by ED RN. Patient able to walk from gurney to bed, attached to ICU monitors. Patient A&Ox4, had BM upon arrival, ST on monitor, VSS. and son-in-law at bedside. Patient requests to be DNR--will call Dr. Negrete. Patient oriented to unit routines, bed controls, tv controls, call light, activity (supervised), and diet (NPO). Patient not complaining of any pain at this time-will continue to monitor.
[2018-04-20 20:30] VITALS: BP 140/81
[2018-04-20 20:45] VITALS: BP 116/61
[2018-04-20 21:00] VITALS: BP 113/74
--- NOTE | 2018-04-20 21:15 | NUR ---
Patient requested to be DNR. Dr. Negrete paged, page returned. Orders received to make patient DNR. MD updated on patient status, orders received to start NS at 75 cc/hr, give 5 units insulin R/T blood sugar 306, and call Dr. Frey to ensure he is aware of consult and is coming in tonight. Patient also triggers sepsis--MD alerted. Patient received fluid bolus in ED, BC drawn, and lactic 1.4. Orders received to consult ID.
[2018-04-20] MEDS ORDERED: INSULIN LISPRO 300 UNITS/3 ML INSULN.PEN. SQ ONE (21:30)
--- NOTE | 2018-04-20 21:45 | NUR ---
Dr Frey paged to ensure he was aware of consult. Page returned--Dr. Frey aware of consult. Updated on patient condition. Will be by to see patient later this evening.
[2018-04-20 22:00] VITALS: BP 107/65
--- NOTE | 2018-04-20 22:34 | EKG ---
[facility] [address] [place] [address] Test Date: 2018-04-20 Test Time: 17:45:49 Pat Name: EDITH SELBY Department: Room: 114 1 Gender: M Community Service Specialist: MARIA FERNANDA : 1935 Requested By: BON MELARA Order Number: [id number] Reading MD: Ronald Lees MD Measurements Intervals [place] Rate: 125 P: 114 UT: 172 QRS: 63 QRSD: 82 T: 44 QT: 296 QTc: 429 Interpretive Statements SINUS TACHYCARDIA NON-SPECIFIC ST/T CHANGES Electronically Signed On 04-26-2018 9:30:18 CLAY DIGGER by Ronald Lees MD
[2018-04-20 23:00] VITALS: BP 97/58
[2018-04-21] VITALS (38 sets, daily range): BP systolic 76–117; BP diastolic 39–70
--- NOTE | 2018-04-21 00:29 | NUR ---
Reassessments not documented by ED RN--documented as "not done" by this RN.
--- NOTE | 2018-04-21 00:55 | PDOC2 ---
CONSULT Date of Consult Date of Consult DATE: 04/21/18 TIME: 00:46 Reason for Consult Reason for Consult: abd abscess Referring Physician Referring Physician: Penelope Identification/Chief Complaint Chief Complaint abd pain, N/V, diarrhea Source Source: Caregiver, Chart review, Patient History of Present Illness Reason for Visit: 82 yo M with several month hx of weight loss, but developed episodic episodes of abd pain past two weeks. Noted incontinence of stool with diarrhea. Seen PCP and started on prednisone with improvement. Poorly controlled DM with glu 500s. Seen in ICU bed and noted to appear very comfortable. Accompanied by supportive . Hungry. Had milkshake on way to ER. Past Medical History Cardiovascular: CAD Pulmonary: COPD Endocrine: Diabetes Past Surgical History Past Surgical History: Cholecystectomy, Hernia Repair Family History Family History: No Significant, High Cholestrol Social History Quit ALCOHOL: occassional Drugs: None Current Problem List Problem List Problems Medical Problems: (1) Abdominal abscess Status: Acute (2) Diverticulosis Status: Acute (3) Hyperglycemia Status: Acute (4) Perforation bowel Status: Acute Current Medications Current Medications Current Medications Sodium Chloride 1,000 ml @ 2,190 mls/hr Q28M IV Last administered on at 19:39; Start 04/20/18 at 18:09; Stop 04/20/18 at 19:06; Status DC Piperacillin Sod/ Tazobactam Sod 4.5 gm/Sodium Chloride 100 ml @ 200 mls/hr 1X ONCE IV Last administered on 04/20/18at 18:58; Start 04/20/18 at 18:15; Stop 04/20/18 at 18:44; Status DC Vancomycin HCl (Vanco Per Pharmacy) 1 each 1X ONCE MC ; Start 04/20/18 at 18:15 ; Stop 04/20/18 at 18:22; Status DC Morphine Sulfate (Morphine Sulfate) 4 mg PRN Q15MIN PRN IV/SQ PAIN GREATER THAN 3/10; Start 04/20/18 at 18:15; Stop 04/21/18 at 18:14 Vancomycin HCl 1.5 gm/Sodium Chloride 500 ml @ 250 mls/hr 1X ONCE IV Last administered on 04/20/18at 19:35; Start 04/20/18 at 18:30; Stop 04/20/18 at 20:29 ; Status DC Insulin Human Regular (HumuLIN R VIAL) 8 unit 1X ONCE SQ Last administered on 04/20/18at 19:33; Start 04/20/18 at 19:15; Stop 04/20/18 at 19:29; Status DC Insulin Human Lispro (HumaLOG) 0-5 UNITS TIDWMEALS SQ ; Start 04/21/18 at 08:00 Dextrose (Dextrose 50%-Water Syringe) 12.5 gm PRN Q15MIN PRN IV SEE COMMENTS; Start 04/20/18 at 19:45 Ondansetron HCl (Zofran) 4 mg PRN Q8HRS PRN IV NAUSEA/VOMITING; Start 04/20/18 at 20:00; Stop 04/21/18 at 19:59 Morphine Sulfate (Morphine Sulfate) 4 mg PRN Q2HR PRN IV PAIN; Start 04/20/18 at 20:00; Stop 04/21/18 at 19:59 Sodium Chloride 1,000 ml @ 125 mls/hr 1X ONCE IV ; Start 04/20/18 at 20:00; Stop 04/21/18 at 03:59 Sodium Chloride 1,000 ml @ 75 mls/hr [id number] IV Last administered on at 21:36; Start 04/20/18 at 21:30 Insulin Human Lispro (HumaLOG) 5 units 1X ONCE SQ Last administered on at 21:57; Start 04/20/18 at 21:30; Stop 04/20/18 at 21:31; Status DC Active Scripts Active Lipitor (Atorvastatin Calcium) 40 Mg Tablet 1 Tab PO QHS Aspirin Ec (Aspirin) 81 Mg Tablet. 81 Mg PO DAILYWBKFT Brilinta (Ticagrelor) 90 Mg Tablet 90 Mg PO BID Reported Soma (Carisoprodol) 350 Mg Tablet 1 Tab PO BID Omeprazole 40 Mg Capsule.dr 1 Cap PO DAILY Symbicort 80-4.5 Mcg Inhaler (Budesonide/Formoterol Fumarate) 10.2 Gm Hfa.aer.ad 1 Puff IH BID Metformin Hcl 500 Mg Tablet 500 Mg PO BIDWMEALS Amaryl (Glimepiride) 4 Mg Tablet 1 Tab PO DAILY Amlodipine Besylate 5 Mg Tablet 5 Mg PO DAILY Carvedilol (Carvedilol) 12.5 Mg Tablet 1 Tab PO BID Colestipol Hcl 1 Gm Tablet 2 Gm PO 1X Magnesium Oxide 400 Mg Tablet 250 Tab PO DAILY Vitamin D3 (Cholecalciferol (Vitamin D3)) 1,000 Unit Tablet 2,000 Tab PO DAILY Allergies Allergies: Coded Allergies: latex (Verified Allergy, Intermediate, rash/blisters, , 01/21/18) ROS General: YES: Other (weight loss) Gastrointestinal: Yes Nausea, Yes Vomiting, Yes Abdominal Pain, Yes Diarrhea Genitourinary: YES Incontinence Physical Exam General: Alert, Oriented X3, Cooperative, No acute distress, Other (pleasant, appears younger then stated age) HEENT: Atraumatic Lungs: Normal air movement Abdomen: Soft, Other (no mike, min TTP diffusely) Extremities: No clubbing, No cyanosis Skin: No rashes, No breakdown Neuro: Normal speech, Sensation intact Psych/Mental Status: Mental status NL, Mood NL Vitals VITALS Vital Signs Date Time Temp Pulse Resp B/P (MAP) Pulse Ox O2 Delivery O2 Flow Rate FiO2 04/20/18 23:00 105 25 97/58 (71) 95 Room Air 04/20/18 20:15 98.4 98.4 Labs Labs Laboratory Tests Test 04/20/18 17:20 04/20/18 18:20 04/20/18 18:48 04/20/18 21:09 Urine Collection Type Unknown Urine Color Yellow Urine Clarity Clear Urine pH 5.0 Urine Specific [place] >=1.030 Urine Protein Negative mg/dL (NEG-TRACE) Urine Glucose (UA) >=1000 mg/dL (NEG) Urine Ketones (Stick) Trace mg/dL (NEG) Urine Blood Negative (NEG) Urine Nitrite Negative (NEG) Urine Bilirubin Negative (NEG) Urine Urobilinogen Dipstick 0.2 mg/dL (0.2 mg/dL) Urine Leukocyte Esterase Negative (NEG) Urine RBC 0 /HPF (0-2) Urine WBC 0 /HPF (0-4) Urine Bacteria 0 /HPF (0-FEW) White Blood Count 13.4 x10^3/uL (4.0-11.0) Red Blood Count 4.31 x10^6/uL (4.30-5.70) Hemoglobin 12.4 g/dL (13.0-17.5) Hematocrit 38.1 % (39.0-53.0) Mean Corpuscular Volume 88 fL (79-100) Mean Corpuscular Hemoglobin 29 pg (25-35) Mean Corpuscular Hemoglobin Concent 33 g/dL (31-37) Red Cell Distribution Width 13.9 % (11.5-14.5) Platelet Count 379 x10^3/uL (140-400) Neutrophils (%) (Auto) 92 % (31-73) Lymphocytes (%) (Auto) 5 % (24-48) Monocytes (%) (Auto) 3 % (0-9) Eosinophils (%) (Auto) 0 % (0-3) Basophils (%) (Auto) 0 % (0-3) Neutrophils # (Auto) 12.3 x10^3uL (1.8-7.7) Lymphocytes # (Auto) 0.6 x10^3/uL (1.0-4.8) Monocytes # (Auto) 0.5 x10^3/uL (0.0-1.1) Eosinophils # (Auto) 0.0 x10^3/uL (0.0-0.7) Basophils # (Auto) 0.1 x10^3/uL (0.0-0.2) Segmented Neutrophils % 85 % (35-66) Band Neutrophils % 11 % (0-9) Lymphocytes % 1 % (24-48) Monocytes % 1 % (0-10) Myelocytes % 2 % (0-0) Platelet Estimate Adequate (ADEQUATE) Sodium Level 134 mmol/L (136-145) Potassium Level 4.4 mmol/L (3.5-5.1) Chloride Level 95 mmol/L (98-107) Carbon Dioxide Level 28 mmol/L (21-32) Anion Gap 11 (6-14) Blood Urea Nitrogen 28 mg/dL (8-26) Creatinine 1.1 mg/dL (0.7-1.3) Estimated GFR (Cockcroft-Gault) 64.2 BUN/Creatinine Ratio 25 (6-20) Glucose Level 529 mg/dL (70-99) Lactic Acid Level 1.4 mmol/L (0.4-2.0) Calcium Level 9.3 mg/dL (8.5-10.1) Total Bilirubin 0.4 mg/dL (0.2-1.0) Aspartate Amino Transf (AST/SGOT) 82 U/L (15-37) Alanine Aminotransferase (ALT/SGPT) 81 U/L (16-63) Alkaline Phosphatase 112 U/L (46-116) Total Protein 7.4 g/dL (6.4-8.2) Albumin 2.7 g/dL (3.4-5.0) Albumin/Globulin Ratio 0.6 (1.0-1.7) Procalcitonin 0.15 ng/mL (0.00-0.10) Stool Occult Blood Positive (NEG) Glucose (Fingerstick) 306 mg/dL (70-99) Laboratory Tests Test 04/20/18 17:20 04/20/18 18:20 04/20/18 18:48 04/20/18 21:09 Urine Collection Type Unknown Urine Color Yellow Urine Clarity Clear Urine pH 5.0 Urine Specific [place] >=1.030 Urine Protein Negative mg/dL (NEG-TRACE) Urine Glucose (UA) >=1000 mg/dL (NEG) Urine Ketones (Stick) Trace mg/dL (NEG) Urine Blood Negative (NEG) Urine Nitrite Negative (NEG) Urine Bilirubin Negative (NEG) Urine Urobilinogen Dipstick 0.2 mg/dL (0.2 mg/dL) Urine Leukocyte Esterase Negative (NEG) Urine RBC 0 /HPF (0-2) Urine WBC 0 /HPF (0-4) Urine Bacteria 0 /HPF (0-FEW) White Blood Count 13.4 x10^3/uL (4.0-11.0) Red Blood Count 4.31 x10^6/uL (4.30-5.70) Hemoglobin 12.4 g/dL (13.0-17.5) Hematocrit 38.1 % (39.0-53.0) Mean Corpuscular Volume 88 fL (79-100) Mean Corpuscular Hemoglobin 29 pg (25-35) Mean Corpuscular Hemoglobin Concent 33 g/dL (31-37) Red Cell Distribution Width 13.9 % (11.5-14.5) Platelet Count 379 x10^3/uL (140-400) Neutrophils (%) (Auto) 92 % (31-73) Lymphocytes (%) (Auto) 5 % (24-48) Monocytes (%) (Auto) 3 % (0-9) Eosinophils (%) (Auto) 0 % (0-3) Basophils (%) (Auto) 0 % (0-3) Neutrophils # (Auto) 12.3 x10^3uL (1.8-7.7) Lymphocytes # (Auto) 0.6 x10^3/uL (1.0-4.8) Monocytes # (Auto) 0.5 x10^3/uL (0.0-1.1) Eosinophils # (Auto) 0.0 x10^3/uL (0.0-0.7) Basophils # (Auto) 0.1 x10^3/uL (0.0-0.2) Segmented Neutrophils % 85 % (35-66) Band Neutrophils % 11 % (0-9) Lymphocytes % 1 % (24-48) Monocytes % 1 % (0-10) Myelocytes % 2 % (0-0) Platelet Estimate Adequate (ADEQUATE) Sodium Level 134 mmol/L (136-145) Potassium Level 4.4 mmol/L (3.5-5.1) Chloride Level 95 mmol/L (98-107) Carbon Dioxide Level 28 mmol/L (21-32) Anion Gap 11 (6-14) Blood Urea Nitrogen 28 mg/dL (8-26) Creatinine 1.1 mg/dL (0.7-1.3) Estimated GFR (Cockcroft-Gault) 64.2 BUN/Creatinine Ratio 25 (6-20) Glucose Level 529 mg/dL (70-99) Lactic Acid Level 1.4 mmol/L (0.4-2.0) Calcium Level 9.3 mg/dL (8.5-10.1) Total Bilirubin 0.4 mg/dL (0.2-1.0) Aspartate Amino Transf (AST/SGOT) 82 U/L (15-37) Alanine Aminotransferase (ALT/SGPT) 81 U/L (16-63) Alkaline Phosphatase 112 U/L (46-116) Total Protein 7.4 g/dL (6.4-8.2) Albumin 2.7 g/dL (3.4-5.0) Albumin/Globulin Ratio 0.6 (1.0-1.7) Procalcitonin 0.15 ng/mL (0.00-0.10) Stool Occult Blood Positive (NEG) Glucose (Fingerstick) 306 mg/dL (70-99) Images Images Reviewed CT at [place]' concern for air and fluid pocket, distinct, pressing on surrounding small bowel, but no PO contrast Assessment/Plan Assessment/Plan abd abscess-appears stable. Need to correct glu, being worked on by hospitalist. IVF and IV abx with improvement in tachycardia. Will ask GI to evaluate and ask IR to consider drainage of fluid collection. Consider surgical intervention, if needed. Thanks for consult! LUIZA JOHNSON MD Apr 21, 2018 00:55
--- NOTE | 2018-04-21 01:40 | NUR ---
Patient's SBP in 80s. Dr. Negrete paged, page returned. Updated on patient condition and vital signs. Orders received to give 1 L NS bolus over 1.5 hours and if that does not increase pressure to start Levophed and titrate as needed.
[2018-04-21] MEDS ORDERED: IV NORMAL SALINE 1000ML BAG 1,000 ML IV ONE ×2 (02:00→16:30)
[2018-04-21] MEDS ORDERED: NOREPINEPHRIN 8MG/250ML PREMIX 250 ML IV PRN (02:00)
[2018-04-21 06:12] LABS: BASO % 0 % (0-3); EOS % 0 % (0-3); HEMATOCRIT 32.6 % (39.0-53.0); HEMOGLOBIN 10.7 g/dL (13.0-17.5); LYMPH # 1.8 x10^3/uL (1.0-4.8); LYMPH % 13 % (24-48); MEAN CORPUSCULAR HEMOGLOBIN 29 pg (25-35); MEAN CORPUSCULAR HGB CONC 33 g/dL (31-37); MEAN CORPUSCULAR VOLUME 88 fL (79-100); MONO # 1.4 x10^3/uL (0.0-1.1); MONO % 10 % (0-9); NEUT # 10.5 x10^3uL (1.8-7.7); NEUT % 76 % (31-73); PLATELET COUNT 372 x10^3/uL (140-400); RED BLOOD COUNT 3.69 x10^6/uL (4.30-5.70); WHITE BLOOD COUNT 13.7 x10^3/uL (4.0-11.0)
[2018-04-21 06:21] LABS: CALCIUM 7.9 mg/dL (8.5-10.1); CREATININE 0.8 mg/dL (0.7-1.3); GFR 92.8; POTASSIUM 3.6 mmol/L (3.5-5.1)
[2018-04-21 06:28] LABS: ALBUMIN/GLOBULIN RATIO 0.5 (1.0-1.7); TOTAL BILIRUBIN 0.3 mg/dL (0.2-1.0); TOTAL PROTEIN 5.8 g/dL (6.4-8.2)
--- NOTE | 2018-04-21 07:27 | PDOC ---
Infectious Disease Note Vital Sign Vital Signs Vital Signs Date Time Temp Pulse Resp B/P (MAP) Pulse Ox O2 Delivery O2 Flow Rate FiO2 04/21/18 06:00 77 22 108/62 (77) 96 Room Air 04/21/18 04:00 98.4 98.4 Labs Lab Laboratory Tests Test 04/20/18 17:20 04/20/18 18:20 04/20/18 18:48 04/20/18 21:09 Urine Collection Type Unknown Urine Color Yellow Urine Clarity Clear Urine pH 5.0 Urine Specific [place] >=1.030 Urine Protein Negative mg/dL (NEG-TRACE) Urine Glucose (UA) >=1000 mg/dL (NEG) Urine Ketones (Stick) Trace mg/dL (NEG) Urine Blood Negative (NEG) Urine Nitrite Negative (NEG) Urine Bilirubin Negative (NEG) Urine Urobilinogen Dipstick 0.2 mg/dL (0.2 mg/dL) Urine Leukocyte Esterase Negative (NEG) Urine RBC 0 /HPF (0-2) Urine WBC 0 /HPF (0-4) Urine Bacteria 0 /HPF (0-FEW) White Blood Count 13.4 x10^3/uL (4.0-11.0) Red Blood Count 4.31 x10^6/uL (4.30-5.70) Hemoglobin 12.4 g/dL (13.0-17.5) Hematocrit 38.1 % (39.0-53.0) Mean Corpuscular Volume 88 fL (79-100) Mean Corpuscular Hemoglobin 29 pg (25-35) Mean Corpuscular Hemoglobin Concent 33 g/dL (31-37) Red Cell Distribution Width 13.9 % (11.5-14.5) Platelet Count 379 x10^3/uL (140-400) Neutrophils (%) (Auto) 92 % (31-73) Lymphocytes (%) (Auto) 5 % (24-48) Monocytes (%) (Auto) 3 % (0-9) Eosinophils (%) (Auto) 0 % (0-3) Basophils (%) (Auto) 0 % (0-3) Neutrophils # (Auto) 12.3 x10^3uL (1.8-7.7) Lymphocytes # (Auto) 0.6 x10^3/uL (1.0-4.8) Monocytes # (Auto) 0.5 x10^3/uL (0.0-1.1) Eosinophils # (Auto) 0.0 x10^3/uL (0.0-0.7) Basophils # (Auto) 0.1 x10^3/uL (0.0-0.2) Segmented Neutrophils % 85 % (35-66) Band Neutrophils % 11 % (0-9) Lymphocytes % 1 % (24-48) Monocytes % 1 % (0-10) Myelocytes % 2 % (0-0) Platelet Estimate Adequate (ADEQUATE) Sodium Level 134 mmol/L (136-145) Potassium Level 4.4 mmol/L (3.5-5.1) Chloride Level 95 mmol/L (98-107) Carbon Dioxide Level 28 mmol/L (21-32) Anion Gap 11 (6-14) Blood Urea Nitrogen 28 mg/dL (8-26) Creatinine 1.1 mg/dL (0.7-1.3) Estimated GFR (Cockcroft-Gault) 64.2 BUN/Creatinine Ratio 25 (6-20) Glucose Level 529 mg/dL (70-99) Lactic Acid Level 1.4 mmol/L (0.4-2.0) Calcium Level 9.3 mg/dL (8.5-10.1) Total Bilirubin 0.4 mg/dL (0.2-1.0) Aspartate Amino Transf (AST/SGOT) 82 U/L (15-37) Alanine Aminotransferase (ALT/SGPT) 81 U/L (16-63) Alkaline Phosphatase 112 U/L (46-116) Total Protein 7.4 g/dL (6.4-8.2) Albumin 2.7 g/dL (3.4-5.0) Albumin/Globulin Ratio 0.6 (1.0-1.7) Procalcitonin 0.15 ng/mL (0.00-0.10) Stool Occult Blood Positive (NEG) Glucose (Fingerstick) 306 mg/dL (70-99) Test 04/21/18 05:20 White Blood Count 13.7 x10^3/uL (4.0-11.0) Red Blood Count 3.69 x10^6/uL (4.30-5.70) Hemoglobin 10.7 g/dL (13.0-17.5) Hematocrit 32.6 % (39.0-53.0) Mean Corpuscular Volume 88 fL (79-100) Mean Corpuscular Hemoglobin 29 pg (25-35) Mean Corpuscular Hemoglobin Concent 33 g/dL (31-37) Red Cell Distribution Width 14.0 % (11.5-14.5) Platelet Count 372 x10^3/uL (140-400) Neutrophils (%) (Auto) 76 % (31-73) Lymphocytes (%) (Auto) 13 % (24-48) Monocytes (%) (Auto) 10 % (0-9) Eosinophils (%) (Auto) 0 % (0-3) Basophils (%) (Auto) 0 % (0-3) Neutrophils # (Auto) 10.5 x10^3uL (1.8-7.7) Lymphocytes # (Auto) 1.8 x10^3/uL (1.0-4.8) Monocytes # (Auto) 1.4 x10^3/uL (0.0-1.1) Eosinophils # (Auto) 0.0 x10^3/uL (0.0-0.7) Basophils # (Auto) 0.0 x10^3/uL (0.0-0.2) Sodium Level 142 mmol/L (136-145) Potassium Level 3.6 mmol/L (3.5-5.1) Chloride Level 106 mmol/L (98-107) Carbon Dioxide Level 26 mmol/L (21-32) Anion Gap 10 (6-14) Blood Urea Nitrogen 19 mg/dL (8-26) Creatinine 0.8 mg/dL (0.7-1.3) Estimated GFR (Cockcroft-Gault) 92.8 BUN/Creatinine Ratio 24 (6-20) Glucose Level 204 mg/dL (70-99) Calcium Level 7.9 mg/dL (8.5-10.1) Total Bilirubin 0.3 mg/dL (0.2-1.0) Aspartate Amino Transf (AST/SGOT) 82 U/L (15-37) Alanine Aminotransferase (ALT/SGPT) 84 U/L (16-63) Alkaline Phosphatase 79 U/L (46-116) Total Protein 5.8 g/dL (6.4-8.2) Albumin 2.0 g/dL (3.4-5.0) Albumin/Globulin Ratio 0.5 (1.0-1.7) Objective Assessment Sepsis - POA On Levophed Leukocytosis Perf Viscous Abd abscesses DM Plan Plan of Care Cont Vanc Add back Zosyn and Add Micafungin F/u labs and cults await IR maritza [place] CT reviewed Thank you 35 mins CC time # [id number] AUNG CASTRO MD Apr 21, 2018 07:27
[2018-04-21] MEDS: INSULIN LISPRO 300 UNITS/3 ML INSULN.PEN. SQ SCH ×3 (08:00→17:00)
[2018-04-21] MEDS: MICAFUNGIN 100 MG in IV DEXTROSE 5% 100ML 100 ML IV SCH (08:26)
[2018-04-21] MEDS: PIPERACILLIN/TAZOBACTAM 3.375 GM in IV NORMAL SALINE 50ML 50 ML IV SCH ×3 (08:27→18:19)
[2018-04-21 08:31] LABS: PROTHROMBIN TIME PATIENT 15.1 SEC (11.7-14.0)
--- NOTE | 2018-04-21 08:37 | CONS ---
DATE OF CONSULTATION: 04/21/2018 ROOM: ICU 14. REQUESTING PHYSICIAN: Dr. Negrete. REASON FOR CONSULTATION: Questionable sepsis. HISTORY OF PRESENT ILLNESS: The patient is a pleasant 82-year-old gentleman with history of coronary artery disease and underwent stent placement back in 01/2017. He states since that time he is not feeling quite right, but since mid-February, he states he has lost about 40 pounds. He has some nausea, vomiting, some loose stools, but has not had any blood as far as he knows in the stools. No gross fevers. He has had occasional chills. No headaches, sore throat or cough. No dysuria, frequency or urgency. Reason he was placed on steroids, azithromycin, and he thinks another antibiotic for a potential intestinal infection. He took a couple of days' worth of medications and then had an outpatient CAT scan performed at [place] showed there was a concentric wall thickening involving the terminal ileum. There is a focal eccentric mass identified in the mid distal ileum measuring 2.4 x 1.5 x 2. He has had immediately distal to the mass there was a pocket of gas, which communicates with a larger gas filled fluid collection measuring 9.3 x 9 x 6.7, suspicious for intraabdominal abscess, as are other areas that were thought to be other abscesses. Because of this, he has been sent directly to [facility]. He was given vancomycin x 1 and a dose of Zosyn x 1. Currently, the patient was sleeping on my arrival, he awakened without complications. He is having some abdominal discomfort. He denies any rashes. He denies any itches. PAST MEDICAL HISTORY: Positive for coronary artery disease, COPD, type 2 diabetes, hypercholesterolemia, hypertension, enlarged prostate. PREVIOUS SURGICAL HISTORY: Includes a cholecystectomy, left shoulder surgery, left inguinal hernia repair, TURP as well as cardiac stents. REVIEW OF SYSTEMS: Otherwise negative except for as mentioned above. ALLERGIES: LISTED LATEX. No antibiotic allergies listed. 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 No alcohol. He is . He has no pets. FAMILY HISTORY: Positive for hypercholesterolemia. CURRENT MEDICATIONS: He did receive a dose of Zosyn. Vancomycin has been ordered per pharmacy. He is currently on Levophed at 3 mcg. He is also on insulin and morphine. Other meds are available and have been reviewed in the chart. PHYSICAL EXAMINATION: VITAL SIGNS: Temperature 98.4, pulse currently 77, respirations 22. Blood pressure 108/62, currently on pressors, was 82/40. Satting 96% on room air. CONSTITUTIONAL: He is alert, cooperative. He is in no acute distress. He is pleasant. HEENT: Pupils equal and reactive. Oral cavity, pharynx is clear. NECK: Supple, no JVD. LUNGS: Clear to auscultation. HEART: S1, S2. ABDOMEN: Minimally distended, is tender. EXTREMITIES: No clubbing, cyanosis or gross edema. SKIN: Warm to touch without signs of rash. NEUROLOGIC: He is nonfocal and appropriate. PSYCHIATRIC: Affect is pleasant. ACCESS: IV sites are clean. LABORATORY DATA: White count of 13.7, up from 13.4 on arrival. Hemoglobin 10.7, platelets of 372. Neutrophils are 76, down from 85. He did have 11 bands on presentation. Glucose was 529 on arrival, currently 204. AST 82, ALT 84, creatinine 0.8. Procalcitonin of 0.15. Urinalysis is clean. Occult stool was positive. Chest x-ray: COPD, superimposed atypical/viral infection not ruled out. CT scan reviewed in history of present illness. IMPRESSION: 1. Sepsis present on admission. 2. Leukocytosis. 3. Perforated viscus. 4. Abdominal abscess. 5. Diabetes. RECOMMENDATIONS: For now, continue vancomycin. We will add back Zosyn as he has only received one dose. We will also add micafungin having been on steroids and recent antimicrobials put him at risk for yeast. Follow up labs, cultures, await interventional radiology evaluation. The chart was reviewed. CT scan was reviewed as well. I spent 35 minutes critical care time. Thank you for allowing me to participate in this patient's care. If you have any questions, please do not hesitate to contact me. AUNG CASTRO MD DR: JACKY/gloria JOB#: [id number] / [id number]
--- NOTE | 2018-04-21 08:55 | PDOC ---
SURGICAL PROGRESS NOTE Subjective Pt with c/o diffuse crampy abd pain, no N/V, passing liquid stools Vital Signs Vital Signs Date Time Temp Pulse Resp B/P (MAP) Pulse Ox O2 Delivery O2 Flow Rate FiO2 04/21/18 08:31 96 Room Air 04/21/18 06:00 77 22 108/62 (77) 04/21/18 04:00 98.4 98.4 I&O Intake and Output 04/21/18 07:01 Intake Total 4177 ml Output Total 1 ml Balance 4176 ml Intake IV Total 4177 ml Output Urine Total 1 ml # Voids 2 # Bowel Movements 3 General: Alert, Oriented X3, Cooperative, No acute distress Abdomen: Soft, Other (mild TTP) Labs Laboratory Tests Test 04/20/18 17:20 04/20/18 18:20 04/20/18 18:48 04/20/18 21:09 Urine Collection Type Unknown Urine Color Yellow Urine Clarity Clear Urine pH 5.0 Urine Specific Ary >=1.030 Urine Protein Negative mg/dL (NEG-TRACE) Urine Glucose (UA) >=1000 mg/dL (NEG) Urine Ketones (Stick) Trace mg/dL (NEG) Urine Blood Negative (NEG) Urine Nitrite Negative (NEG) Urine Bilirubin Negative (NEG) Urine Urobilinogen Dipstick 0.2 mg/dL (0.2 mg/dL) Urine Leukocyte Esterase Negative (NEG) Urine RBC 0 /HPF (0-2) Urine WBC 0 /HPF (0-4) Urine Bacteria 0 /HPF (0-FEW) White Blood Count 13.4 x10^3/uL (4.0-11.0) Red Blood Count 4.31 x10^6/uL (4.30-5.70) Hemoglobin 12.4 g/dL (13.0-17.5) Hematocrit 38.1 % (39.0-53.0) Mean Corpuscular Volume 88 fL (79-100) Mean Corpuscular Hemoglobin 29 pg (25-35) Mean Corpuscular Hemoglobin Concent 33 g/dL (31-37) Red Cell Distribution Width 13.9 % (11.5-14.5) Platelet Count 379 x10^3/uL (140-400) Neutrophils (%) (Auto) 92 % (31-73) Lymphocytes (%) (Auto) 5 % (24-48) Monocytes (%) (Auto) 3 % (0-9) Eosinophils (%) (Auto) 0 % (0-3) Basophils (%) (Auto) 0 % (0-3) Neutrophils # (Auto) 12.3 x10^3uL (1.8-7.7) Lymphocytes # (Auto) 0.6 x10^3/uL (1.0-4.8) Monocytes # (Auto) 0.5 x10^3/uL (0.0-1.1) Eosinophils # (Auto) 0.0 x10^3/uL (0.0-0.7) Basophils # (Auto) 0.1 x10^3/uL (0.0-0.2) Segmented Neutrophils % 85 % (35-66) Band Neutrophils % 11 % (0-9) Lymphocytes % 1 % (24-48) Monocytes % 1 % (0-10) Myelocytes % 2 % (0-0) Platelet Estimate Adequate (ADEQUATE) Sodium Level 134 mmol/L (136-145) Potassium Level 4.4 mmol/L (3.5-5.1) Chloride Level 95 mmol/L (98-107) Carbon Dioxide Level 28 mmol/L (21-32) Anion Gap 11 (6-14) Blood Urea Nitrogen 28 mg/dL (8-26) Creatinine 1.1 mg/dL (0.7-1.3) Estimated GFR (Cockcroft-Gault) 64.2 BUN/Creatinine Ratio 25 (6-20) Glucose Level 529 mg/dL (70-99) Lactic Acid Level 1.4 mmol/L (0.4-2.0) Calcium Level 9.3 mg/dL (8.5-10.1) Total Bilirubin 0.4 mg/dL (0.2-1.0) Aspartate Amino Transf (AST/SGOT) 82 U/L (15-37) Alanine Aminotransferase (ALT/SGPT) 81 U/L (16-63) Alkaline Phosphatase 112 U/L (46-116) Total Protein 7.4 g/dL (6.4-8.2) Albumin 2.7 g/dL (3.4-5.0) Albumin/Globulin Ratio 0.6 (1.0-1.7) Procalcitonin 0.15 ng/mL (0.00-0.10) Stool Occult Blood Positive (NEG) Glucose (Fingerstick) 306 mg/dL (70-99) Test 04/21/18 05:20 04/21/18 07:55 White Blood Count 13.7 x10^3/uL (4.0-11.0) Red Blood Count 3.69 x10^6/uL (4.30-5.70) Hemoglobin 10.7 g/dL (13.0-17.5) Hematocrit 32.6 % (39.0-53.0) Mean Corpuscular Volume 88 fL (79-100) Mean Corpuscular Hemoglobin 29 pg (25-35) Mean Corpuscular Hemoglobin Concent 33 g/dL (31-37) Red Cell Distribution Width 14.0 % (11.5-14.5) Platelet Count 372 x10^3/uL (140-400) Neutrophils (%) (Auto) 76 % (31-73) Lymphocytes (%) (Auto) 13 % (24-48) Monocytes (%) (Auto) 10 % (0-9) Eosinophils (%) (Auto) 0 % (0-3) Basophils (%) (Auto) 0 % (0-3) Neutrophils # (Auto) 10.5 x10^3uL (1.8-7.7) Lymphocytes # (Auto) 1.8 x10^3/uL (1.0-4.8) Monocytes # (Auto) 1.4 x10^3/uL (0.0-1.1) Eosinophils # (Auto) 0.0 x10^3/uL (0.0-0.7) Basophils # (Auto) 0.0 x10^3/uL (0.0-0.2) Sodium Level 142 mmol/L (136-145) Potassium Level 3.6 mmol/L (3.5-5.1) Chloride Level 106 mmol/L (98-107) Carbon Dioxide Level 26 mmol/L (21-32) Anion Gap 10 (6-14) Blood Urea Nitrogen 19 mg/dL (8-26) Creatinine 0.8 mg/dL (0.7-1.3) Estimated GFR (Cockcroft-Gault) 92.8 BUN/Creatinine Ratio 24 (6-20) Glucose Level 204 mg/dL (70-99) Calcium Level 7.9 mg/dL (8.5-10.1) Total Bilirubin 0.3 mg/dL (0.2-1.0) Aspartate Amino Transf (AST/SGOT) 82 U/L (15-37) Alanine Aminotransferase (ALT/SGPT) 84 U/L (16-63) Alkaline Phosphatase 79 U/L (46-116) Total Protein 5.8 g/dL (6.4-8.2) Albumin 2.0 g/dL (3.4-5.0) Albumin/Globulin Ratio 0.5 (1.0-1.7) Prothrombin Time 15.1 SEC (11.7-14.0) Prothromb Time International Ratio 1.2 (0.8-1.1) Laboratory Tests Test 04/20/18 17:20 04/20/18 18:20 04/20/18 18:48 04/20/18 21:09 Urine Collection Type Unknown Urine Color Yellow Urine Clarity Clear Urine pH 5.0 Urine Specific Ary >=1.030 Urine Protein Negative mg/dL (NEG-TRACE) Urine Glucose (UA) >=1000 mg/dL (NEG) Urine Ketones (Stick) Trace mg/dL (NEG) Urine Blood Negative (NEG) Urine Nitrite Negative (NEG) Urine Bilirubin Negative (NEG) Urine Urobilinogen Dipstick 0.2 mg/dL (0.2 mg/dL) Urine Leukocyte Esterase Negative (NEG) Urine RBC 0 /HPF (0-2) Urine WBC 0 /HPF (0-4) Urine Bacteria 0 /HPF (0-FEW) White Blood Count 13.4 x10^3/uL (4.0-11.0) Red Blood Count 4.31 x10^6/uL (4.30-5.70) Hemoglobin 12.4 g/dL (13.0-17.5) Hematocrit 38.1 % (39.0-53.0) Mean Corpuscular Volume 88 fL (79-100) Mean Corpuscular Hemoglobin 29 pg (25-35) Mean Corpuscular Hemoglobin Concent 33 g/dL (31-37) Red Cell Distribution Width 13.9 % (11.5-14.5) Platelet Count 379 x10^3/uL (140-400) Neutrophils (%) (Auto) 92 % (31-73) Lymphocytes (%) (Auto) 5 % (24-48) Monocytes (%) (Auto) 3 % (0-9) Eosinophils (%) (Auto) 0 % (0-3) Basophils (%) (Auto) 0 % (0-3) Neutrophils # (Auto) 12.3 x10^3uL (1.8-7.7) Lymphocytes # (Auto) 0.6 x10^3/uL (1.0-4.8) Monocytes # (Auto) 0.5 x10^3/uL (0.0-1.1) Eosinophils # (Auto) 0.0 x10^3/uL (0.0-0.7) Basophils # (Auto) 0.1 x10^3/uL (0.0-0.2) Segmented Neutrophils % 85 % (35-66) Band Neutrophils % 11 % (0-9) Lymphocytes % 1 % (24-48) Monocytes % 1 % (0-10) Myelocytes % 2 % (0-0) Platelet Estimate Adequate (ADEQUATE) Sodium Level 134 mmol/L (136-145) Potassium Level 4.4 mmol/L (3.5-5.1) Chloride Level 95 mmol/L (98-107) Carbon Dioxide Level 28 mmol/L (21-32) Anion Gap 11 (6-14) Blood Urea Nitrogen 28 mg/dL (8-26) Creatinine 1.1 mg/dL (0.7-1.3) Estimated GFR (Cockcroft-Gault) 64.2 BUN/Creatinine Ratio 25 (6-20) Glucose Level 529 mg/dL (70-99) Lactic Acid Level 1.4 mmol/L (0.4-2.0) Calcium Level 9.3 mg/dL (8.5-10.1) Total Bilirubin 0.4 mg/dL (0.2-1.0) Aspartate Amino Transf (AST/SGOT) 82 U/L (15-37) Alanine Aminotransferase (ALT/SGPT) 81 U/L (16-63) Alkaline Phosphatase 112 U/L (46-116) Total Protein 7.4 g/dL (6.4-8.2) Albumin 2.7 g/dL (3.4-5.0) Albumin/Globulin Ratio 0.6 (1.0-1.7) Procalcitonin 0.15 ng/mL (0.00-0.10) Stool Occult Blood Positive (NEG) Glucose (Fingerstick) 306 mg/dL (70-99) Test 04/21/18 05:20 04/21/18 07:55 White Blood Count 13.7 x10^3/uL (4.0-11.0) Red Blood Count 3.69 x10^6/uL (4.30-5.70) Hemoglobin 10.7 g/dL (13.0-17.5) Hematocrit 32.6 % (39.0-53.0) Mean Corpuscular Volume 88 fL (79-100) Mean Corpuscular Hemoglobin 29 pg (25-35) Mean Corpuscular Hemoglobin Concent 33 g/dL (31-37) Red Cell Distribution Width 14.0 % (11.5-14.5) Platelet Count 372 x10^3/uL (140-400) Neutrophils (%) (Auto) 76 % (31-73) Lymphocytes (%) (Auto) 13 % (24-48) Monocytes (%) (Auto) 10 % (0-9) Eosinophils (%) (Auto) 0 % (0-3) Basophils (%) (Auto) 0 % (0-3) Neutrophils # (Auto) 10.5 x10^3uL (1.8-7.7) Lymphocytes # (Auto) 1.8 x10^3/uL (1.0-4.8) Monocytes # (Auto) 1.4 x10^3/uL (0.0-1.1) Eosinophils # (Auto) 0.0 x10^3/uL (0.0-0.7) Basophils # (Auto) 0.0 x10^3/uL (0.0-0.2) Sodium Level 142 mmol/L (136-145) Potassium Level 3.6 mmol/L (3.5-5.1) Chloride Level 106 mmol/L (98-107) Carbon Dioxide Level 26 mmol/L (21-32) Anion Gap 10 (6-14) Blood Urea Nitrogen 19 mg/dL (8-26) Creatinine 0.8 mg/dL (0.7-1.3) Estimated GFR (Cockcroft-Gault) 92.8 BUN/Creatinine Ratio 24 (6-20) Glucose Level 204 mg/dL (70-99) Calcium Level 7.9 mg/dL (8.5-10.1) Total Bilirubin 0.3 mg/dL (0.2-1.0) Aspartate Amino Transf (AST/SGOT) 82 U/L (15-37) Alanine Aminotransferase (ALT/SGPT) 84 U/L (16-63) Alkaline Phosphatase 79 U/L (46-116) Total Protein 5.8 g/dL (6.4-8.2) Albumin 2.0 g/dL (3.4-5.0) Albumin/Globulin Ratio 0.5 (1.0-1.7) Prothrombin Time 15.1 SEC (11.7-14.0) Prothromb Time International Ratio 1.2 (0.8-1.1) Problem List Problems Medical Problems: (1) Abdominal abscess Status: Acute (2) Diverticulosis Status: Acute (3) Hyperglycemia Status: Acute (4) Perforation bowel Status: Acute Assessment/Plan abd abscess appreciate ID IR to consider drainage cont w/u glu better today LUIZA JOHNSON MD Apr 21, 2018 08:55
--- NOTE | 2018-04-21 08:59 | PDOC2 ---
GI CONSULT Reason For Consult: Diverticulosis/diverticulitis HPI: HPI: 82 y/o male ill for ~3 weeks, initially w/ cold and cough, then abdominal pain and constipation not really improved w/ Aleve and laxatives (though reports some diarrhea - says "stools look like madden"), decreased appetite, and [address] A/P showed free intraperitoneal air suggestive of bowel perf, intra-abdominal abscess in RLQ which may communicate w/ distal ileal loop , small abscess in right lower pelvis, moderate diverticulosis w/ wall thickening involving rectosigmoid junction, small bowel mass in mid to distal ileum, and diffuse circumferential wall thickening involving proximal stomach. Surgery and ID are following, plans for drain placement w/ IR. H/o GERD on omeprazole, h/o CAD on Brilinta and ASA. Previous EGDs and colonoscopies w/ Dr. Womack - [facility] last ~2-3 years ago, recalls no significant findings. S/p cholecystectomy. Denies liver or pancreas history. PMH: PMH: CAD, HTN, HLD, COPD, OA, BPH, DM, skin cancer, GERD, diverticulosis cardiac stent, cholecystectomy, left inguinal hernia repair, skin cancer removal , TURP, left shoulder surgery FH: Family History: No pertinent hx Social History: Smoke: Quit ALCOHOL: rare Drugs: None ROS: GEN: Denies fevers, chills, sweats HEENT: Denies blurred vision, sore throat CV: Denies chest pain RESP: +cough GI: Per HPI : Denies hematuria, dysuria ENDO: +weight loss NEURO: Denies confusion, dizziness MSK: Denies weakness, joint pain/swelling SKIN: Denies jaundice, pruritus Vitals: Vitals: Vital Signs Date Time Temp Pulse Resp B/P (MAP) Pulse Ox O2 Delivery O2 Flow Rate FiO2 04/21/18 08:31 96 Room Air 04/21/18 06:00 77 22 108/62 (77) 04/21/18 04:00 98.4 98.4 Labs: Labs: Laboratory Tests Test 04/20/18 17:20 04/20/18 18:20 04/20/18 18:48 04/20/18 21:09 Urine Collection Type Unknown Urine Color Yellow Urine Clarity Clear Urine pH 5.0 Urine Specific [place] >=1.030 Urine Protein Negative mg/dL (NEG-TRACE) Urine Glucose (UA) >=1000 mg/dL (NEG) Urine Ketones (Stick) Trace mg/dL (NEG) Urine Blood Negative (NEG) Urine Nitrite Negative (NEG) Urine Bilirubin Negative (NEG) Urine Urobilinogen Dipstick 0.2 mg/dL (0.2 mg/dL) Urine Leukocyte Esterase Negative (NEG) Urine RBC 0 /HPF (0-2) Urine WBC 0 /HPF (0-4) Urine Bacteria 0 /HPF (0-FEW) White Blood Count 13.4 x10^3/uL (4.0-11.0) Red Blood Count 4.31 x10^6/uL (4.30-5.70) Hemoglobin 12.4 g/dL (13.0-17.5) Hematocrit 38.1 % (39.0-53.0) Mean Corpuscular Volume 88 fL (79-100) Mean Corpuscular Hemoglobin 29 pg (25-35) Mean Corpuscular Hemoglobin Concent 33 g/dL (31-37) Red Cell Distribution Width 13.9 % (11.5-14.5) Platelet Count 379 x10^3/uL (140-400) Neutrophils (%) (Auto) 92 % (31-73) Lymphocytes (%) (Auto) 5 % (24-48) Monocytes (%) (Auto) 3 % (0-9) Eosinophils (%) (Auto) 0 % (0-3) Basophils (%) (Auto) 0 % (0-3) Neutrophils # (Auto) 12.3 x10^3uL (1.8-7.7) Lymphocytes # (Auto) 0.6 x10^3/uL (1.0-4.8) Monocytes # (Auto) 0.5 x10^3/uL (0.0-1.1) Eosinophils # (Auto) 0.0 x10^3/uL (0.0-0.7) Basophils # (Auto) 0.1 x10^3/uL (0.0-0.2) Segmented Neutrophils % 85 % (35-66) Band Neutrophils % 11 % (0-9) Lymphocytes % 1 % (24-48) Monocytes % 1 % (0-10) Myelocytes % 2 % (0-0) Platelet Estimate Adequate (ADEQUATE) Sodium Level 134 mmol/L (136-145) Potassium Level 4.4 mmol/L (3.5-5.1) Chloride Level 95 mmol/L (98-107) Carbon Dioxide Level 28 mmol/L (21-32) Anion Gap 11 (6-14) Blood Urea Nitrogen 28 mg/dL (8-26) Creatinine 1.1 mg/dL (0.7-1.3) Estimated GFR (Cockcroft-Gault) 64.2 BUN/Creatinine Ratio 25 (6-20) Glucose Level 529 mg/dL (70-99) Lactic Acid Level 1.4 mmol/L (0.4-2.0) Calcium Level 9.3 mg/dL (8.5-10.1) Total Bilirubin 0.4 mg/dL (0.2-1.0) Aspartate Amino Transf (AST/SGOT) 82 U/L (15-37) Alanine Aminotransferase (ALT/SGPT) 81 U/L (16-63) Alkaline Phosphatase 112 U/L (46-116) Total Protein 7.4 g/dL (6.4-8.2) Albumin 2.7 g/dL (3.4-5.0) Albumin/Globulin Ratio 0.6 (1.0-1.7) Procalcitonin 0.15 ng/mL (0.00-0.10) Stool Occult Blood Positive (NEG) Glucose (Fingerstick) 306 mg/dL (70-99) Test 04/21/18 05:20 04/21/18 07:55 White Blood Count 13.7 x10^3/uL (4.0-11.0) Red Blood Count 3.69 x10^6/uL (4.30-5.70) Hemoglobin 10.7 g/dL (13.0-17.5) Hematocrit 32.6 % (39.0-53.0) Mean Corpuscular Volume 88 fL (79-100) Mean Corpuscular Hemoglobin 29 pg (25-35) Mean Corpuscular Hemoglobin Concent 33 g/dL (31-37) Red Cell Distribution Width 14.0 % (11.5-14.5) Platelet Count 372 x10^3/uL (140-400) Neutrophils (%) (Auto) 76 % (31-73) Lymphocytes (%) (Auto) 13 % (24-48) Monocytes (%) (Auto) 10 % (0-9) Eosinophils (%) (Auto) 0 % (0-3) Basophils (%) (Auto) 0 % (0-3) Neutrophils # (Auto) 10.5 x10^3uL (1.8-7.7) Lymphocytes # (Auto) 1.8 x10^3/uL (1.0-4.8) Monocytes # (Auto) 1.4 x10^3/uL (0.0-1.1) Eosinophils # (Auto) 0.0 x10^3/uL (0.0-0.7) Basophils # (Auto) 0.0 x10^3/uL (0.0-0.2) Sodium Level 142 mmol/L (136-145) Potassium Level 3.6 mmol/L (3.5-5.1) Chloride Level 106 mmol/L (98-107) Carbon Dioxide Level 26 mmol/L (21-32) Anion Gap 10 (6-14) Blood Urea Nitrogen 19 mg/dL (8-26) Creatinine 0.8 mg/dL (0.7-1.3) Estimated GFR (Cockcroft-Gault) 92.8 BUN/Creatinine Ratio 24 (6-20) Glucose Level 204 mg/dL (70-99) Calcium Level 7.9 mg/dL (8.5-10.1) Total Bilirubin 0.3 mg/dL (0.2-1.0) Aspartate Amino Transf (AST/SGOT) 82 U/L (15-37) Alanine Aminotransferase (ALT/SGPT) 84 U/L (16-63) Alkaline Phosphatase 79 U/L (46-116) Total Protein 5.8 g/dL (6.4-8.2) Albumin 2.0 g/dL (3.4-5.0) Albumin/Globulin Ratio 0.5 (1.0-1.7) Prothrombin Time 15.1 SEC (11.7-14.0) Prothromb Time International Ratio 1.2 (0.8-1.1) Allergies: Coded Allergies: latex (Verified Allergy, Intermediate, rash/blisters, , 01/21/18) Medications: Current Medications Medications (Trade) Dose Ordered Sig/Annie Route PRN Reason Start Time Stop Time Status Last Admin Dose Admin Sodium Chloride 1,000 ml @ 2,190 mls/hr Q28M IV 04/20/18 18:09 04/20/18 19:06 DC 04/20/18 19:39 Piperacillin Sod/ Tazobactam Sod 4.5 gm/Sodium Chloride 100 ml @ 200 mls/hr 1X ONCE IV 04/20/18 18:15 04/20/18 18:44 DC 04/20/18 18:58 Vancomycin HCl 1.5 gm/Sodium Chloride 500 ml @ 250 mls/hr 1X ONCE IV 04/20/18 18:30 04/20/18 20:29 DC 04/20/18 19:35 Insulin Human Regular (HumuLIN R VIAL) 8 unit 1X ONCE SQ 04/20/18 19:15 04/20/18 19:29 DC 04/20/18 19:33 Morphine Sulfate (Morphine Sulfate) 4 mg PRN Q2HR PRN IV PAIN 04/20/18 20:00 04/21/18 19:59 04/21/18 07:29 Sodium Chloride 1,000 ml @ 75 mls/hr [id number] IV 04/20/18 21:30 04/20/18 21:36 Insulin Human Lispro (HumaLOG) 5 units 1X ONCE SQ 04/20/18 21:30 04/20/18 21:31 DC 04/20/18 21:57 Sodium Chloride 1,000 ml @ 1,000 mls/hr 1X ONCE IV 04/21/18 02:00 04/21/18 02:59 DC 04/21/18 02:01 Norepinephrine Bitartrate 250 ml @ 1.875 mls/ hr CONT PRN IV SEE I/O RECORD 04/21/18 02:00 04/21/18 02:27 Piperacillin Sod/ Tazobactam Sod 3.375 gm/Sodium Chloride 50 ml @ 100 mls/hr Q6HRS IV 04/21/18 08:00 04/21/18 08:27 Micafungin Sodium 100 mg/Dextrose 100 ml @ 100 mls/hr Q24H IV 04/21/18 08:00 04/21/18 08:26 Imaging: Imaging: CXR IMPRESSION: COPD. Superimposed atypical/viral infection not ruled out. PE: GEN: NAD HEENT: Atraumatic, PERRL LUNGS: CTAB HEART: tachycardic ABD: quiet, soft, some tenderness EXTREMITY: No edema SKIN: No rashes, no jaundice NEURO/PSYCH: A & O �3 A/P: A/P: Abd pain, weight loss, change in bowel habits Abnormal CT - free intraperitoneal air, abscesses, diverticulosis, SB mass, wall thickening of stomach Sepsis, anemia CAD, COPD, DM GERD - on PPI CRC screen - reports last done 2-3 years ago w/ Dr. Womack Diverticular disease S/p cholecystectomy -- Plans for drain placement w/ IR. Add IV PPI. EMILY KNIGHT Apr 21, 2018 08:59
--- NOTE | 2018-04-21 08:59 | NUR ---
SS following for discharge planning. SS reviewed pt chart. Pt is from home with spouse and currently on room air. No discharge needs noted at this time. SS will continue to follow for pending discharge needs.
[2018-04-21] MEDS: VANCOMYCIN PER PHARMACY MC PRN (09:11)
--- NOTE | 2018-04-21 09:15 | NUR ---
Pharmacy Vancomycin Dosing Note S:Consulted to monitor and dose vancomycin started 04/21/18. O:EDITH SELBY is a 82 year old M with Sepsis Abdominal abscess, perforated viscus . Height: 5 feet, 10 inches Weight: 61.618936 kg [place] Body Weight: 73.00 Adjusted Body Weight: 68.20 Dosing Weight: Actual Other Antibiotics: zosyn micafungin LABS: Last BUN: 19 Last Creatinine: 0.8 Creatinine Clearance: 50 mL/min Last WBC: 13.7 Last Procalcitonin: 0.15 Tmax (past 24 hours): 98.6 Microbiology: I/O: Drug Levels: Last Trough level: on at Last dose given 04/20/18 at 1930 Vancomycin Dosing: Loading Dose: 1500 mg x1 Dosing Weight: Actual Target Trough: 15-20 A: Based on: Body weight and renal function P: 1. After loading dose, start Vancomycin 1000 mg IV q24h 2. Follow up Trough level on 04/22/18 at 1900 3. Pharmacy will continue to monitor, follow and adjust therapy as needed. JOSE BOOJRQUEZ RPH, 04/21/18 0987
--- NOTE | 2018-04-21 09:50 | PDOC2 ---
BROOKE LI LEADER WRITER 04/21/18 0950: CARDIAC CONSULT DATE OF CONSULT Date of Consult DATE: 04/21/18 TIME: 09:31 REASON FOR CONSULT Reason for Consult: CAD with new bowel perf REFERRING PHYSICIAN Referring Physician: [place]bright SOURCE Source: Caregiver (spouse), Chart review, Patient HISTORY OF PRESENT ILLNESS HISTORY OF PRESENT ILLNESS This is a pleasant 82 yo male admitted for abnormal CT with abd pain and tarry diarrhea. Reports that he has been having lower abdominal pain for about 6 days. He thought that he was constipated and took several laxatives and started to have diarrhea with tarry black consistency. He continues to have MCGRATH and was advised from his last cardiac appointment to discontinue brilinta and change to plavix but continued to use brilinta trying to finish it and start on plavix when brilinta is gone. His last dose of brilinta was Thursday. Denies any CP. He did note that his BP tend run at low end. No dizziness or passing out. He finally went to his PCP to which CT of the abdomen was done and noted abnormalities including bowel perforation. Presently he is supine but no SOA but having some lower abd pain. PAST MEDICAL HISTORY Cardiovascular: CAD, HTN, Hyperlipidemia Pulmonary: COPD CENTRAL NERVOUS SYSTEM: Other (No pertinent history) Musculoskeletal: Osteoarthritis Renal/: Benign prostatic enlarg. Endocrine: Diabetes (2) Dermatology: Other (skin CA) PAST SURGICAL HISTORY Past Surgical History: Cholecystectomy, Hernia Repair, Other (PCI/stent 2017; skin CA removal) FAMILY HISTORY Family History noncontributory to CV SOCIAL HISTORY Smoke: Quit (>10 yrs ) ALCOHOL: occassional Drugs: None Lives: with Family CURRENT MEDICATIONS CURRENT MEDICATIONS Current Medications Medications (Trade) Dose Ordered Sig/Annie Route PRN Reason Start Time Stop Time Status Last Admin Dose Admin Sodium Chloride 1,000 ml @ 2,190 mls/hr Q28M IV 04/20/18 18:09 04/20/18 19:06 DC 04/20/18 19:39 Piperacillin Sod/ Tazobactam Sod 4.5 gm/Sodium Chloride 100 ml @ 200 mls/hr 1X ONCE IV 04/20/18 18:15 04/20/18 18:44 DC 04/20/18 18:58 Vancomycin HCl 1.5 gm/Sodium Chloride 500 ml @ 250 mls/hr 1X ONCE IV 04/20/18 18:30 04/20/18 20:29 DC 04/20/18 19:35 Insulin Human Regular (HumuLIN R VIAL) 8 unit 1X ONCE SQ 04/20/18 19:15 04/20/18 19:29 DC 04/20/18 19:33 Morphine Sulfate (Morphine Sulfate) 4 mg PRN Q2HR PRN IV PAIN 04/20/18 20:00 04/21/18 19:59 04/21/18 07:29 Sodium Chloride 1,000 ml @ 75 mls/hr [id number] IV 04/20/18 21:30 04/20/18 21:36 Insulin Human Lispro (HumaLOG) 5 units 1X ONCE SQ 04/20/18 21:30 04/20/18 21:31 DC 04/20/18 21:57 Sodium Chloride 1,000 ml @ 1,000 mls/hr 1X ONCE IV 04/21/18 02:00 04/21/18 02:59 DC 04/21/18 02:01 Norepinephrine Bitartrate 250 ml @ 1.875 mls/ hr CONT PRN IV SEE I/O RECORD 04/21/18 02:00 04/21/18 02:27 Piperacillin Sod/ Tazobactam Sod 3.375 gm/Sodium Chloride 50 ml @ 100 mls/hr Q6HRS IV 04/21/18 08:00 04/21/18 08:27 Micafungin Sodium 100 mg/Dextrose 100 ml @ 100 mls/hr Q24H IV 04/21/18 08:00 04/21/18 08:26 Vancomycin HCl (Vanco Per Pharmacy) 1 each PRN DAILY PRN MC SEE COMMENTS 04/21/18 09:15 04/21/18 09:11 ALLERGIES ALLERGIES: Coded Allergies: latex (Verified Allergy, Intermediate, rash/blisters, , 01/21/18) ROS Review of System 14 point ROS evaluated with pertinent positives noted per HPI PHYSICAL EXAM General: Alert, Oriented X3, Cooperative, No acute distress HEENT: Atraumatic, Mucous membr. moist/pink Lungs: Clear to auscultation, Normal air movement Heart: Regular rate (SR no ectopies), Normal S1, Normal S2, Other (2/6 systolic murmur to LLS border) Abdomen: Other (lower abd tenderness) Extremities: No cyanosis, No edema Skin: No breakdown, No significant lesion Neuro: Normal speech, Sensation intact Psych/Mental Status: Mental status NL, Mood NL MUSCULOSKELETAL: Osteoarthritic changes both hands VITALS VITALS Vital Signs Date Time Temp Pulse Resp B/P (MAP) Pulse Ox O2 Delivery O2 Flow Rate FiO2 04/21/18 08:31 96 Room Air 04/21/18 06:00 77 22 108/62 (77) 04/21/18 04:00 98.4 98.4 LABS Lab: Laboratory Tests Test 04/20/18 17:20 04/20/18 18:20 04/20/18 18:48 04/20/18 21:09 Urine Collection Type Unknown Urine Color Yellow Urine Clarity Clear Urine pH 5.0 Urine Specific [place] >=1.030 Urine Protein Negative mg/dL (NEG-TRACE) Urine Glucose (UA) >=1000 mg/dL (NEG) Urine Ketones (Stick) Trace mg/dL (NEG) Urine Blood Negative (NEG) Urine Nitrite Negative (NEG) Urine Bilirubin Negative (NEG) Urine Urobilinogen Dipstick 0.2 mg/dL (0.2 mg/dL) Urine Leukocyte Esterase Negative (NEG) Urine RBC 0 /HPF (0-2) Urine WBC 0 /HPF (0-4) Urine Bacteria 0 /HPF (0-FEW) White Blood Count 13.4 x10^3/uL (4.0-11.0) Red Blood Count 4.31 x10^6/uL (4.30-5.70) Hemoglobin 12.4 g/dL (13.0-17.5) Hematocrit 38.1 % (39.0-53.0) Mean Corpuscular Volume 88 fL (79-100) Mean Corpuscular Hemoglobin 29 pg (25-35) Mean Corpuscular Hemoglobin Concent 33 g/dL (31-37) Red Cell Distribution Width 13.9 % (11.5-14.5) Platelet Count 379 x10^3/uL (140-400) Neutrophils (%) (Auto) 92 % (31-73) Lymphocytes (%) (Auto) 5 % (24-48) Monocytes (%) (Auto) 3 % (0-9) Eosinophils (%) (Auto) 0 % (0-3) Basophils (%) (Auto) 0 % (0-3) Neutrophils # (Auto) 12.3 x10^3uL (1.8-7.7) Lymphocytes # (Auto) 0.6 x10^3/uL (1.0-4.8) Monocytes # (Auto) 0.5 x10^3/uL (0.0-1.1) Eosinophils # (Auto) 0.0 x10^3/uL (0.0-0.7) Basophils # (Auto) 0.1 x10^3/uL (0.0-0.2) Segmented Neutrophils % 85 % (35-66) Band Neutrophils % 11 % (0-9) Lymphocytes % 1 % (24-48) Monocytes % 1 % (0-10) Myelocytes % 2 % (0-0) Platelet Estimate Adequate (ADEQUATE) Sodium Level 134 mmol/L (136-145) Potassium Level 4.4 mmol/L (3.5-5.1) Chloride Level 95 mmol/L (98-107) Carbon Dioxide Level 28 mmol/L (21-32) Anion Gap 11 (6-14) Blood Urea Nitrogen 28 mg/dL (8-26) Creatinine 1.1 mg/dL (0.7-1.3) Estimated GFR (Cockcroft-Gault) 64.2 BUN/Creatinine Ratio 25 (6-20) Glucose Level 529 mg/dL (70-99) Lactic Acid Level 1.4 mmol/L (0.4-2.0) Calcium Level 9.3 mg/dL (8.5-10.1) Total Bilirubin 0.4 mg/dL (0.2-1.0) Aspartate Amino Transf (AST/SGOT) 82 U/L (15-37) Alanine Aminotransferase (ALT/SGPT) 81 U/L (16-63) Alkaline Phosphatase 112 U/L (46-116) Total Protein 7.4 g/dL (6.4-8.2) Albumin 2.7 g/dL (3.4-5.0) Albumin/Globulin Ratio 0.6 (1.0-1.7) Procalcitonin 0.15 ng/mL (0.00-0.10) Stool Occult Blood Positive (NEG) Glucose (Fingerstick) 306 mg/dL (70-99) Test 04/21/18 05:20 04/21/18 07:55 White Blood Count 13.7 x10^3/uL (4.0-11.0) Red Blood Count 3.69 x10^6/uL (4.30-5.70) Hemoglobin 10.7 g/dL (13.0-17.5) Hematocrit 32.6 % (39.0-53.0) Mean Corpuscular Volume 88 fL (79-100) Mean Corpuscular Hemoglobin 29 pg (25-35) Mean Corpuscular Hemoglobin Concent 33 g/dL (31-37) Red Cell Distribution Width 14.0 % (11.5-14.5) Platelet Count 372 x10^3/uL (140-400) Neutrophils (%) (Auto) 76 % (31-73) Lymphocytes (%) (Auto) 13 % (24-48) Monocytes (%) (Auto) 10 % (0-9) Eosinophils (%) (Auto) 0 % (0-3) Basophils (%) (Auto) 0 % (0-3) Neutrophils # (Auto) 10.5 x10^3uL (1.8-7.7) Lymphocytes # (Auto) 1.8 x10^3/uL (1.0-4.8) Monocytes # (Auto) 1.4 x10^3/uL (0.0-1.1) Eosinophils # (Auto) 0.0 x10^3/uL (0.0-0.7) Basophils # (Auto) 0.0 x10^3/uL (0.0-0.2) Sodium Level 142 mmol/L (136-145) Potassium Level 3.6 mmol/L (3.5-5.1) Chloride Level 106 mmol/L (98-107) Carbon Dioxide Level 26 mmol/L (21-32) Anion Gap 10 (6-14) Blood Urea Nitrogen 19 mg/dL (8-26) Creatinine 0.8 mg/dL (0.7-1.3) Estimated GFR (Cockcroft-Gault) 92.8 BUN/Creatinine Ratio 24 (6-20) Glucose Level 204 mg/dL (70-99) Calcium Level 7.9 mg/dL (8.5-10.1) Total Bilirubin 0.3 mg/dL (0.2-1.0) Aspartate Amino Transf (AST/SGOT) 82 U/L (15-37) Alanine Aminotransferase (ALT/SGPT) 84 U/L (16-63) Alkaline Phosphatase 79 U/L (46-116) Total Protein 5.8 g/dL (6.4-8.2) Albumin 2.0 g/dL (3.4-5.0) Albumin/Globulin Ratio 0.5 (1.0-1.7) Prothrombin Time 15.1 SEC (11.7-14.0) Prothromb Time International Ratio 1.2 (0.8-1.1) IMAGES IMAGES IMPRESSION: 1. There is free intraperitoneal air suggestive of bowel perforation. 2. There is a intra-abdominal abscess in the right lower quadrant which may communicate with patent mid to distal ileal loop. However, oral contrast is not identified within this air and fluid collection, making it difficult to confirm the location of perforation. An additional smaller abscess is identified in the right lower pelvis measuring 2.8 x 1.4 cm. There is moderate diverticulosis with wall thickening involving the rectosigmoid junction. Consideration may be given for mild diverticulitis. 3. There is a small bowel mass in the mid to distal ileum measuring measuring 2.4 x 1.5 x 2.0 cm. 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 4. Diffuse circumferential wall thickening involving the proximal stomach may represent gastritis versus lymphoma. Further evaluation with endoscopy may be of benefit. 5. COPD changes with a 6 mm solid noncalcified pulmonary nodule in the right middle lobe. One year follow-up chest CT may be of benefit. DATE: 04/20/18 1451 HEART CATH HEART CATH Conclusion 1. 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 Successful PCI with implanatation of a 4.0/18 mm ANH, confirming excellent placement by IVUS. Recommendations ASA 81 mg daily Ticagrelor 90mg bid for 1 full year. High dose statin therapy Cardiac rehab. Supportive care. DATE: 01/22/18 1224 ASSESSMENT/PLAN ASSESSMENT/PLAN 1. Abd machado: Small bowel perforation/mass/abscess 2. GI bleed: Hgb at 10.7 3. Sepsis 4. CAD: 01/22/2018 PCI/ANH to LAD 5. HTN: controlled on levophed 6. DM2: initially at 500s, per PCP 7. HLP 8. COPD 9. MCGRATH: likely from COPD, brilinta possibly contributing. No CHF. Recommendations 1. COPD treatments per PCP. 2. General surgery and ID following with potential abscess drain today 3. Last dose of brilinta Thursday. High risk for coronary thrombosis but given the acuity of his bowel issue will hold off on P2Y12 inhibitor for potential surgery and will continue with ASA and statin. Will transition to plavix when cleared byt general surgery. 4. TTE today. Hold BP meds till BP is consistently adequate. 5. Supportive care at this time ISMAEL POSADAS MD 04/21/18 3225: CARDIAC CONSULT ASSESSMENT/PLAN ASSESSMENT/PLAN Patient seen and examined. Agree with above nurse practitioner note. Noted acute abdominal issues. He had a large stent placed in his LAD and given that it has been over 2 months he's at low risk for stent thrombosis. Okay to continue aspirin only for now until cleared by surgery. Supportive care. We will follow along. BROOKE LI APRN Apr 21, 2018 09:50 ISMAEL POSADAS MD Apr 21, 2018 18:35
[2018-04-21] MEDS ORDERED: LIDOCAINE WITH 8.4% SOD BICARB 3 ML DISP.SYRIN. ONE (10:17)
[2018-04-21] MEDS ORDERED: fentaNYL PF VIAL 100 MCG/2 ML VIAL ONE (10:53)
[2018-04-21] MEDS ORDERED: MIDAZOLAM HCL/PF 2 MG/2 ML VIAL. ONE (10:53)
[2018-04-21] MEDS ORDERED: MIDAZOLAM HCL/PF 2 MG/2 ML VIAL. IV ONE (11:00)
[2018-04-21] MEDS ORDERED: fentaNYL PF VIAL 100 MCG/2 ML VIAL IV ONE (11:00)
[2018-04-21] MEDS ORDERED: LIDOCAINE WITH 8.4% SOD BICARB 3 ML DISP.SYRIN. IJ ONE (11:00)
--- NOTE | 2018-04-21 11:43 | CARD ---
MR#: [id number] Date of Study: 04/21/2018 Ordering Physician: BROOKE LI, Referring Physician: ASHIA DEVRIES Tech: Josephine Womack RDCS APPROVED REPORT EXAM: Two-dimensional and M-mode echocardiogram with Doppler and color Doppler. Other Information Quality : Fair INDICATION COPD Dyspnea Cardiac Disease: CAD 2D DIMENSIONS RVDd2.6 (2.9-3.5cm)Left Atrium(2D)3.2 (1.6-4.0cm) IVSd0.8 (0.7-1.1cm)Aortic Root(2D)3.2 (2.0-3.7cm) LVDd5.2 (3.9-5.9cm)LVOT Diameter2.3 (1.8-2.4cm) PWd0.8 (0.7-1.1cm)LVDs4.0 (2.5-4.0cm) FS (%) 22.4 %SV57.0 ml LVEF(%)50.0 (>50%) Aortic Valve AoV Peak Owen.110.1cm/sAoV VTI19.8cm AO Peak GR.4.9mmHgLVOT VTI 19.14cm AO Mean GR.3mmHgAVA (VTI)4.10cm2 Mitral Valve MV E Fzllibzb398.1cm/sMV DECEL OMDE924yt MV A Dtdeevfg625.8cm/sE/A Ratio0.9 TDI Lateral E' P. V9.46cm/sMedial E' P. V6.82cm/s E/Lateral E'10.6E/Medial E'14.7 Tricuspid Valve TR P. Wiyqokeu961hr/sRAP [id number] TR Peak Gr.72vwIfHHIM75xnYk Pulmonary Vein S1 Npfhpmsl73.9cm/sS2 Gdsdrrzk16.71cm/s D2 Ssglluzb95.7cm/s LEFT VENTRICLE The left ventricle is normal size. There is normal left ventricular wall thickness. The left ventricu lar systolic function is normal. The Ejection Fraction is 55%. There is normal LV segmental wall eleanor on. Transmitral Doppler flow pattern is Grade II-pseudonormal filling dynamics. RIGHT VENTRICLE The right ventricle is normal size. The right ventricular systolic function is normal. ATRIA The left atrium size is normal. The right atrium size is normal. The interatrial septum is intact wit h no evidence for an atrial septal defect or patent foramen ovale as noted on 2-D or Doppler imaging. AORTIC VALVE The aortic valve is calcified but opens well. Doppler and Color Flow revealed no significant aortic r egurgitation. There is no significant aortic valvular stenosis. MITRAL VALVE The mitral valve is calcified but opens well. Mitral annular calcification is mild. There is no evide nce of mitral valve prolapse. There is no mitral valve stenosis. Doppler and Color-flow revealed trac e mitral regurgitation. TRICUSPID VALVE The tricuspid valve is normal in structure and function. Doppler and Color Flow revealed trace tricus pid regurgitation. There is moderate pulmonary hypertension. The PA pressure was estimated at 43 mmHg . There is no tricuspid valve stenosis. PULMONIC VALVE The pulmonic valve is not well visualized. Doppler and Color Flow revealed no pulmonic valvular regur gitation. There is no pulmonic valvular stenosis. GREAT VESSELS The aortic root is normal in size. The ascending aorta is not well seen. The IVC is dilated and colla pses >50% with inspiration. PERICARDIAL EFFUSION There is no evidence of significant pericardial effusion. Critical Notification Critical Value: No <Conclusion> The left ventricular systolic function is normal. The Ejection Fraction is 55%. There is normal LV segmental wall motion. Trace mitral regurgitation. Trace tricuspid regurgitation. The PA pressure was estimated at 43 mmHg. There is no evidence of significant pericardial effusion. Signed by : Manuel Helms, Electronically Approved : 04/21/2018 11:41:41
[2018-04-21] MEDS: ASPIRIN ENTERIC COATED 81 MG TABLET.DR. PO SCH (11:58)
[2018-04-21] MEDS: PANTOPRAZOLE IV PUSH 40 MG VIAL. IVP SCH (11:58)
[2018-04-21] MEDS: IV NORMAL SALINE 1000ML BAG 1,000 ML IV SCH (11:59)
--- NOTE | 2018-04-21 13:16 | PDOC ---
MODERATE SEDATION ASSESSMENT RISKS/ALTERNATIVES Risks/Alternatives Risks and alternatives of this type of sedation and procedure discussed with: RISK/ALTERNATIVES: Patient H & P ON CHART H & P H & P on chart and reviewed for co-morbid conditions and appropriate labs. H&P ON CHART: Yes STATUS PREG STATUS ASSESSED: Yes MEDS/ALLERGIES REVIEWED Meds/Allergies Reviewed Medications and Allergies including time and route of recently administered narcotics and sedatives. MEDS/ALLERGIES REVIEWED: Yes ASA RATING ASA RATING: II AIRWAY ASSESSMENT Airway Assessment Airway patency, oral function limitations, presence of caps, crowns, dentures, partials, and ability to extend neck assessed. AIRWAY ASSESSMENT: Yes MALLAMPATI SCORE MALLAMPATI SCORE: II PRE-SEDATION ASSESSMENT PRE-SEDATION ASSESSMENT: Yes EVA YANES MD Apr 21, 2018 13:16
--- NOTE | 2018-04-21 13:17 | PDOC ---
BRIEF OPERATIVE NOTE Pre-Op Diagnosis Abdominal abscess Post-Op Diagnosis same Procedure Performed CT drain placement Surgeon Alex Anesthesia Type: Conscious Sedation Specimens Obtained 20cc rosi pus Findings 12F drain placed Complications No immediate EVA YANES MD Apr 21, 2018 13:17
--- NOTE | 2018-04-21 13:32 | RAD ---
Procedure: CT-guided right lower quadrant abdominal drain placement Clinical Indication: 82-year-old with large right lower quadrant abdominal abscess Sedation: Conscious sedation was administered with a total intraprocedural [id number] time of 12 minutes. The patient was monitored by a qualified independent observer throughout the time of sedation. Please refer to the medical record for exact doses of medications utilized to achieve moderate sedation. Antibiotics: None Sterility: The procedure was performed in its entirety using appropriate elements of sterile technique. Consent: The procedure was explained in its entirety to the patient or the patients designated telecommunications sales representative by a member of the treatment team, including a discussion of the risks, benefits and commonly accepted alternatives to the procedure, as well as the expected consequences of no therapy whatsoever. Discussion of the risks included, but was not limited to, those that are most frequent and those that are rare but possibly severe or life-threatening, as well as the possibility of unforeseen complications. Technique and Findings: Following informed consent, the patient was prepped and draped in usual sterile fashion. Preliminary CT scan of the area of interest was performed. 1% lidocaine was used to achieve local anesthesia. A small dermatotomy was made. Under periodic CT surveillance, an 18-gauge needle was advanced into the abscess cavity and 20 cc of rosi pus was aspirated and sent for microbiologic analysis. The needle was exchanged over wire for a 12 [place] pigtail drainage catheter which was sutured to the skin and placed to bulb suction. Complications: No immediate Impression: 1. CT-guided abdominal abscess drain placement as described PQRS Compliance Statement: One or more of the following individualized dose reduction techniques were utilized for this examination: 1. Automated exposure control 2. Adjustment of the mA and/or kV according to patient size 3. Use of iterative reconstruction technique
--- NOTE | 2018-04-21 16:22 | PDOC ---
PROGRESS NOTES Chief Complaint Chief Complaint 1. Acute abdominal pain, sepsis, with perforated bowel, prob diverticula, 2. abdominal abscesses 3, diabetes 2, hyperglycemia 4. CAD post stent 2018 5. severe malnutrition, POA 6. History of Present Illness History of Present Illness cont broad abx to IR today, drain abcess gen surg and GI and ID following better glucose control, add SSI Vitals Vitals Vital Signs Date Time Temp Pulse Resp B/P (MAP) Pulse Ox O2 Delivery O2 Flow Rate FiO2 04/21/18 16:00 Room Air 04/21/18 14:58 96 2.0 04/21/18 14:00 70 22 106/62 (77) 04/21/18 07:00 98.5 98.5 Physical Exam General: Alert, Oriented X3, Cooperative, No acute distress Heart: Regular rate (SR no ectopies), Normal S1, Normal S2, Other (2/6 systolic murmur to LLS border) Lungs: Clear Abdomen: Other (lower abd tenderness) Extremities: No cyanosis, No edema Skin: No breakdown, No significant lesion Labs LABS Laboratory Tests Test 04/20/18 17:20 04/20/18 18:20 04/20/18 18:48 04/20/18 21:00 Urine Collection Type Unknown Urine Color Yellow Urine Clarity Clear Urine pH 5.0 Urine Specific [place] >=1.030 Urine Protein Negative mg/dL (NEG-TRACE) Urine Glucose (UA) >=1000 mg/dL (NEG) Urine Ketones (Stick) Trace mg/dL (NEG) Urine Blood Negative (NEG) Urine Nitrite Negative (NEG) Urine Bilirubin Negative (NEG) Urine Urobilinogen Dipstick 0.2 mg/dL (0.2 mg/dL) Urine Leukocyte Esterase Negative (NEG) Urine RBC 0 /HPF (0-2) Urine WBC 0 /HPF (0-4) Urine Bacteria 0 /HPF (0-FEW) White Blood Count 13.4 x10^3/uL (4.0-11.0) Red Blood Count 4.31 x10^6/uL (4.30-5.70) Hemoglobin 12.4 g/dL (13.0-17.5) Hematocrit 38.1 % (39.0-53.0) Mean Corpuscular Volume 88 fL (79-100) Mean Corpuscular Hemoglobin 29 pg (25-35) Mean Corpuscular Hemoglobin Concent 33 g/dL (31-37) Red Cell Distribution Width 13.9 % (11.5-14.5) Platelet Count 379 x10^3/uL (140-400) Neutrophils (%) (Auto) 92 % (31-73) Lymphocytes (%) (Auto) 5 % (24-48) Monocytes (%) (Auto) 3 % (0-9) Eosinophils (%) (Auto) 0 % (0-3) Basophils (%) (Auto) 0 % (0-3) Neutrophils # (Auto) 12.3 x10^3uL (1.8-7.7) Lymphocytes # (Auto) 0.6 x10^3/uL (1.0-4.8) Monocytes # (Auto) 0.5 x10^3/uL (0.0-1.1) Eosinophils # (Auto) 0.0 x10^3/uL (0.0-0.7) Basophils # (Auto) 0.1 x10^3/uL (0.0-0.2) Segmented Neutrophils % 85 % (35-66) Band Neutrophils % 11 % (0-9) Lymphocytes % 1 % (24-48) Monocytes % 1 % (0-10) Myelocytes % 2 % (0-0) Platelet Estimate Adequate (ADEQUATE) Sodium Level 134 mmol/L (136-145) Potassium Level 4.4 mmol/L (3.5-5.1) Chloride Level 95 mmol/L (98-107) Carbon Dioxide Level 28 mmol/L (21-32) Anion Gap 11 (6-14) Blood Urea Nitrogen 28 mg/dL (8-26) Creatinine 1.1 mg/dL (0.7-1.3) Estimated GFR (Cockcroft-Gault) 64.2 BUN/Creatinine Ratio 25 (6-20) Glucose Level 529 mg/dL (70-99) Lactic Acid Level 1.4 mmol/L (0.4-2.0) Calcium Level 9.3 mg/dL (8.5-10.1) Total Bilirubin 0.4 mg/dL (0.2-1.0) Aspartate Amino Transf (AST/SGOT) 82 U/L (15-37) Alanine Aminotransferase (ALT/SGPT) 81 U/L (16-63) Alkaline Phosphatase 112 U/L (46-116) Total Protein 7.4 g/dL (6.4-8.2) Albumin 2.7 g/dL (3.4-5.0) Albumin/Globulin Ratio 0.6 (1.0-1.7) Procalcitonin 0.15 ng/mL (0.00-0.10) Stool Occult Blood Positive (NEG) Nasal Screen MRSA (PCR) Negative (Negative) Test 04/20/18 21:09 04/20/18 23:29 04/21/18 05:20 04/21/18 07:55 Glucose (Fingerstick) 306 mg/dL (70-99) Clostridium difficile Toxin B Gene Negative (Negative) White Blood Count 13.7 x10^3/uL (4.0-11.0) Red Blood Count 3.69 x10^6/uL (4.30-5.70) Hemoglobin 10.7 g/dL (13.0-17.5) Hematocrit 32.6 % (39.0-53.0) Mean Corpuscular Volume 88 fL (79-100) Mean Corpuscular Hemoglobin 29 pg (25-35) Mean Corpuscular Hemoglobin Concent 33 g/dL (31-37) Red Cell Distribution Width 14.0 % (11.5-14.5) Platelet Count 372 x10^3/uL (140-400) Neutrophils (%) (Auto) 76 % (31-73) Lymphocytes (%) (Auto) 13 % (24-48) Monocytes (%) (Auto) 10 % (0-9) Eosinophils (%) (Auto) 0 % (0-3) Basophils (%) (Auto) 0 % (0-3) Neutrophils # (Auto) 10.5 x10^3uL (1.8-7.7) Lymphocytes # (Auto) 1.8 x10^3/uL (1.0-4.8) Monocytes # (Auto) 1.4 x10^3/uL (0.0-1.1) Eosinophils # (Auto) 0.0 x10^3/uL (0.0-0.7) Basophils # (Auto) 0.0 x10^3/uL (0.0-0.2) Sodium Level 142 mmol/L (136-145) Potassium Level 3.6 mmol/L (3.5-5.1) Chloride Level 106 mmol/L (98-107) Carbon Dioxide Level 26 mmol/L (21-32) Anion Gap 10 (6-14) Blood Urea Nitrogen 19 mg/dL (8-26) Creatinine 0.8 mg/dL (0.7-1.3) Estimated GFR (Cockcroft-Gault) 92.8 BUN/Creatinine Ratio 24 (6-20) Glucose Level 204 mg/dL (70-99) Calcium Level 7.9 mg/dL (8.5-10.1) Total Bilirubin 0.3 mg/dL (0.2-1.0) Aspartate Amino Transf (AST/SGOT) 82 U/L (15-37) Alanine Aminotransferase (ALT/SGPT) 84 U/L (16-63) Alkaline Phosphatase 79 U/L (46-116) Total Protein 5.8 g/dL (6.4-8.2) Albumin 2.0 g/dL (3.4-5.0) Albumin/Globulin Ratio 0.5 (1.0-1.7) Prothrombin Time 15.1 SEC (11.7-14.0) Prothromb Time International Ratio 1.2 (0.8-1.1) Assessment and Plan Assessmemt and Plan Problems Medical Problems: (1) Abdominal abscess Status: Acute (2) Diverticulosis Status: Acute (3) Hyperglycemia Status: Acute (4) Perforation bowel Status: Acute Comment Review of Relevant I have reviewed the following items mukesh (where applicable) has been applied. Labs Laboratory Tests Test 04/20/18 17:20 04/20/18 18:20 04/20/18 18:48 04/20/18 21:00 Urine Collection Type Unknown Urine Color Yellow Urine Clarity Clear Urine pH 5.0 Urine Specific [place] >=1.030 Urine Protein Negative mg/dL (NEG-TRACE) Urine Glucose (UA) >=1000 mg/dL (NEG) Urine Ketones (Stick) Trace mg/dL (NEG) Urine Blood Negative (NEG) Urine Nitrite Negative (NEG) Urine Bilirubin Negative (NEG) Urine Urobilinogen Dipstick 0.2 mg/dL (0.2 mg/dL) Urine Leukocyte Esterase Negative (NEG) Urine RBC 0 /HPF (0-2) Urine WBC 0 /HPF (0-4) Urine Bacteria 0 /HPF (0-FEW) White Blood Count 13.4 x10^3/uL (4.0-11.0) Red Blood Count 4.31 x10^6/uL (4.30-5.70) Hemoglobin 12.4 g/dL (13.0-17.5) Hematocrit 38.1 % (39.0-53.0) Mean Corpuscular Volume 88 fL (79-100) Mean Corpuscular Hemoglobin 29 pg (25-35) Mean Corpuscular Hemoglobin Concent 33 g/dL (31-37) Red Cell Distribution Width 13.9 % (11.5-14.5) Platelet Count 379 x10^3/uL (140-400) Neutrophils (%) (Auto) 92 % (31-73) Lymphocytes (%) (Auto) 5 % (24-48) Monocytes (%) (Auto) 3 % (0-9) Eosinophils (%) (Auto) 0 % (0-3) Basophils (%) (Auto) 0 % (0-3) Neutrophils # (Auto) 12.3 x10^3uL (1.8-7.7) Lymphocytes # (Auto) 0.6 x10^3/uL (1.0-4.8) Monocytes # (Auto) 0.5 x10^3/uL (0.0-1.1) Eosinophils # (Auto) 0.0 x10^3/uL (0.0-0.7) Basophils # (Auto) 0.1 x10^3/uL (0.0-0.2) Segmented Neutrophils % 85 % (35-66) Band Neutrophils % 11 % (0-9) Lymphocytes % 1 % (24-48) Monocytes % 1 % (0-10) Myelocytes % 2 % (0-0) Platelet Estimate Adequate (ADEQUATE) Sodium Level 134 mmol/L (136-145) Potassium Level 4.4 mmol/L (3.5-5.1) Chloride Level 95 mmol/L (98-107) Carbon Dioxide Level 28 mmol/L (21-32) Anion Gap 11 (6-14) Blood Urea Nitrogen 28 mg/dL (8-26) Creatinine 1.1 mg/dL (0.7-1.3) Estimated GFR (Cockcroft-Gault) 64.2 BUN/Creatinine Ratio 25 (6-20) Glucose Level 529 mg/dL (70-99) Lactic Acid Level 1.4 mmol/L (0.4-2.0) Calcium Level 9.3 mg/dL (8.5-10.1) Total Bilirubin 0.4 mg/dL (0.2-1.0) Aspartate Amino Transf (AST/SGOT) 82 U/L (15-37) Alanine Aminotransferase (ALT/SGPT) 81 U/L (16-63) Alkaline Phosphatase 112 U/L (46-116) Total Protein 7.4 g/dL (6.4-8.2) Albumin 2.7 g/dL (3.4-5.0) Albumin/Globulin Ratio 0.6 (1.0-1.7) Procalcitonin 0.15 ng/mL (0.00-0.10) Stool Occult Blood Positive (NEG) Nasal Screen MRSA (PCR) Negative (Negative) Test 04/20/18 21:09 04/20/18 23:29 04/21/18 05:20 04/21/18 07:55 Glucose (Fingerstick) 306 mg/dL (70-99) Clostridium difficile Toxin B Gene Negative (Negative) White Blood Count 13.7 x10^3/uL (4.0-11.0) Red Blood Count 3.69 x10^6/uL (4.30-5.70) Hemoglobin 10.7 g/dL (13.0-17.5) Hematocrit 32.6 % (39.0-53.0) Mean Corpuscular Volume 88 fL (79-100) Mean Corpuscular Hemoglobin 29 pg (25-35) Mean Corpuscular Hemoglobin Concent 33 g/dL (31-37) Red Cell Distribution Width 14.0 % (11.5-14.5) Platelet Count 372 x10^3/uL (140-400) Neutrophils (%) (Auto) 76 % (31-73) Lymphocytes (%) (Auto) 13 % (24-48) Monocytes (%) (Auto) 10 % (0-9) Eosinophils (%) (Auto) 0 % (0-3) Basophils (%) (Auto) 0 % (0-3) Neutrophils # (Auto) 10.5 x10^3uL (1.8-7.7) Lymphocytes # (Auto) 1.8 x10^3/uL (1.0-4.8) Monocytes # (Auto) 1.4 x10^3/uL (0.0-1.1) Eosinophils # (Auto) 0.0 x10^3/uL (0.0-0.7) Basophils # (Auto) 0.0 x10^3/uL (0.0-0.2) Sodium Level 142 mmol/L (136-145) Potassium Level 3.6 mmol/L (3.5-5.1) Chloride Level 106 mmol/L (98-107) Carbon Dioxide Level 26 mmol/L (21-32) Anion Gap 10 (6-14) Blood Urea Nitrogen 19 mg/dL (8-26) Creatinine 0.8 mg/dL (0.7-1.3) Estimated GFR (Cockcroft-Gault) 92.8 BUN/Creatinine Ratio 24 (6-20) Glucose Level 204 mg/dL (70-99) Calcium Level 7.9 mg/dL (8.5-10.1) Total Bilirubin 0.3 mg/dL (0.2-1.0) Aspartate Amino Transf (AST/SGOT) 82 U/L (15-37) Alanine Aminotransferase (ALT/SGPT) 84 U/L (16-63) Alkaline Phosphatase 79 U/L (46-116) Total Protein 5.8 g/dL (6.4-8.2) Albumin 2.0 g/dL (3.4-5.0) Albumin/Globulin Ratio 0.5 (1.0-1.7) Prothrombin Time 15.1 SEC (11.7-14.0) Prothromb Time International Ratio 1.2 (0.8-1.1) Laboratory Tests Test 04/20/18 17:20 04/20/18 18:20 04/20/18 18:48 04/20/18 21:00 Urine Collection Type Unknown Urine Color Yellow Urine Clarity Clear Urine pH 5.0 Urine Specific [place] >=1.030 Urine Protein Negative mg/dL (NEG-TRACE) Urine Glucose (UA) >=1000 mg/dL (NEG) Urine Ketones (Stick) Trace mg/dL (NEG) Urine Blood Negative (NEG) Urine Nitrite Negative (NEG) Urine Bilirubin Negative (NEG) Urine Urobilinogen Dipstick 0.2 mg/dL (0.2 mg/dL) Urine Leukocyte Esterase Negative (NEG) Urine RBC 0 /HPF (0-2) Urine WBC 0 /HPF (0-4) Urine Bacteria 0 /HPF (0-FEW) White Blood Count 13.4 x10^3/uL (4.0-11.0) Red Blood Count 4.31 x10^6/uL (4.30-5.70) Hemoglobin 12.4 g/dL (13.0-17.5) Hematocrit 38.1 % (39.0-53.0) Mean Corpuscular Volume 88 fL (79-100) Mean Corpuscular Hemoglobin 29 pg (25-35) Mean Corpuscular Hemoglobin Concent 33 g/dL (31-37) Red Cell Distribution Width 13.9 % (11.5-14.5) Platelet Count 379 x10^3/uL (140-400) Neutrophils (%) (Auto) 92 % (31-73) Lymphocytes (%) (Auto) 5 % (24-48) Monocytes (%) (Auto) 3 % (0-9) Eosinophils (%) (Auto) 0 % (0-3) Basophils (%) (Auto) 0 % (0-3) Neutrophils # (Auto) 12.3 x10^3uL (1.8-7.7) Lymphocytes # (Auto) 0.6 x10^3/uL (1.0-4.8) Monocytes # (Auto) 0.5 x10^3/uL (0.0-1.1) Eosinophils # (Auto) 0.0 x10^3/uL (0.0-0.7) Basophils # (Auto) 0.1 x10^3/uL (0.0-0.2) Segmented Neutrophils % 85 % (35-66) Band Neutrophils % 11 % (0-9) Lymphocytes % 1 % (24-48) Monocytes % 1 % (0-10) Myelocytes % 2 % (0-0) Platelet Estimate Adequate (ADEQUATE) Sodium Level 134 mmol/L (136-145) Potassium Level 4.4 mmol/L (3.5-5.1) Chloride Level 95 mmol/L (98-107) Carbon Dioxide Level 28 mmol/L (21-32) Anion Gap 11 (6-14) Blood Urea Nitrogen 28 mg/dL (8-26) Creatinine 1.1 mg/dL (0.7-1.3) Estimated GFR (Cockcroft-Gault) 64.2 BUN/Creatinine Ratio 25 (6-20) Glucose Level 529 mg/dL (70-99) Lactic Acid Level 1.4 mmol/L (0.4-2.0) Calcium Level 9.3 mg/dL (8.5-10.1) Total Bilirubin 0.4 mg/dL (0.2-1.0) Aspartate Amino Transf (AST/SGOT) 82 U/L (15-37) Alanine Aminotransferase (ALT/SGPT) 81 U/L (16-63) Alkaline Phosphatase 112 U/L (46-116) Total Protein 7.4 g/dL (6.4-8.2) Albumin 2.7 g/dL (3.4-5.0) Albumin/Globulin Ratio 0.6 (1.0-1.7) Procalcitonin 0.15 ng/mL (0.00-0.10) Stool Occult Blood Positive (NEG) Nasal Screen MRSA (PCR) Negative (Negative) Test 04/20/18 21:09 04/20/18 23:29 04/21/18 05:20 04/21/18 07:55 Glucose (Fingerstick) 306 mg/dL (70-99) Clostridium difficile Toxin B Gene Negative (Negative) White Blood Count 13.7 x10^3/uL (4.0-11.0) Red Blood Count 3.69 x10^6/uL (4.30-5.70) Hemoglobin 10.7 g/dL (13.0-17.5) Hematocrit 32.6 % (39.0-53.0) Mean Corpuscular Volume 88 fL (79-100) Mean Corpuscular Hemoglobin 29 pg (25-35) Mean Corpuscular Hemoglobin Concent 33 g/dL (31-37) Red Cell Distribution Width 14.0 % (11.5-14.5) Platelet Count 372 x10^3/uL (140-400) Neutrophils (%) (Auto) 76 % (31-73) Lymphocytes (%) (Auto) 13 % (24-48) Monocytes (%) (Auto) 10 % (0-9) Eosinophils (%) (Auto) 0 % (0-3) Basophils (%) (Auto) 0 % (0-3) Neutrophils # (Auto) 10.5 x10^3uL (1.8-7.7) Lymphocytes # (Auto) 1.8 x10^3/uL (1.0-4.8) Monocytes # (Auto) 1.4 x10^3/uL (0.0-1.1) Eosinophils # (Auto) 0.0 x10^3/uL (0.0-0.7) Basophils # (Auto) 0.0 x10^3/uL (0.0-0.2) Sodium Level 142 mmol/L (136-145) Potassium Level 3.6 mmol/L (3.5-5.1) Chloride Level 106 mmol/L (98-107) Carbon Dioxide Level 26 mmol/L (21-32) Anion Gap 10 (6-14) Blood Urea Nitrogen 19 mg/dL (8-26) Creatinine 0.8 mg/dL (0.7-1.3) Estimated GFR (Cockcroft-Gault) 92.8 BUN/Creatinine Ratio 24 (6-20) Glucose Level 204 mg/dL (70-99) Calcium Level 7.9 mg/dL (8.5-10.1) Total Bilirubin 0.3 mg/dL (0.2-1.0) Aspartate Amino Transf (AST/SGOT) 82 U/L (15-37) Alanine Aminotransferase (ALT/SGPT) 84 U/L (16-63) Alkaline Phosphatase 79 U/L (46-116) Total Protein 5.8 g/dL (6.4-8.2) Albumin 2.0 g/dL (3.4-5.0) Albumin/Globulin Ratio 0.5 (1.0-1.7) Prothrombin Time 15.1 SEC (11.7-14.0) Prothromb Time International Ratio 1.2 (0.8-1.1) Medications Current Medications Sodium Chloride 1,000 ml @ 2,190 mls/hr Q28M IV Last administered on at 19:39; Start 04/20/18 at 18:09; Stop 04/20/18 at 19:06; Status DC Piperacillin Sod/ Tazobactam Sod 4.5 gm/Sodium Chloride 100 ml @ 200 mls/hr 1X ONCE IV Last administered on 04/20/18at 18:58; Start 04/20/18 at 18:15; Stop 04/20/18 at 18:44; Status DC Vancomycin HCl (Vanco Per Pharmacy) 1 each 1X ONCE MC ; Start 04/20/18 at 18:15 ; Stop 04/20/18 at 18:16; Status Cancel Morphine Sulfate (Morphine Sulfate) 4 mg PRN Q15MIN PRN IV/SQ PAIN GREATER THAN 3/10; Start 04/20/18 at 18:15; Stop 04/21/18 at 18:14 Vancomycin HCl 1.5 gm/Sodium Chloride 500 ml @ 250 mls/hr 1X ONCE IV Last administered on 04/20/18at 19:35; Start 04/20/18 at 18:30; Stop 04/20/18 at 20:29 ; Status DC Insulin Human Regular (HumuLIN R VIAL) 8 unit 1X ONCE SQ Last administered on 04/20/18at 19:33; Start 04/20/18 at 19:15; Stop 04/20/18 at 19:29; Status DC Insulin Human Lispro (HumaLOG) 0-5 UNITS TIDWMEALS SQ ; Start 04/21/18 at 08:00 Dextrose (Dextrose 50%-Water Syringe) 12.5 gm PRN Q15MIN PRN IV SEE COMMENTS; Start 04/20/18 at 19:45 Ondansetron HCl (Zofran) 4 mg PRN Q8HRS PRN IV NAUSEA/VOMITING; Start 04/20/18 at 20:00; Stop 04/21/18 at 19:59 Morphine Sulfate (Morphine Sulfate) 4 mg PRN Q2HR PRN IV PAIN Last administered on 04/21/18at 07:29; Start 04/20/18 at 20:00; Stop 04/21/18 at 19:59 Sodium Chloride 1,000 ml @ 125 mls/hr 1X ONCE IV ; Start 04/20/18 at 20:00; Stop 04/21/18 at 03:59; Status DC Sodium Chloride 1,000 ml @ 75 mls/hr [id number] IV Last administered on at 11:59; Start 04/20/18 at 21:30 Insulin Human Lispro (HumaLOG) 5 units 1X ONCE SQ Last administered on at 21:57; Start 04/20/18 at 21:30; Stop 04/20/18 at 21:31; Status DC Sodium Chloride 1,000 ml @ 1,000 mls/hr 1X ONCE IV Last administered on at 02:01; Start 04/21/18 at 02:00; Stop 04/21/18 at 02:59; Status DC Norepinephrine Bitartrate 250 ml @ 1.875 mls/ hr CONT PRN IV SEE I/O RECORD Last administered on 04/21/18at 02:27; Start 04/21/18 at 02:00 Piperacillin Sod/ Tazobactam Sod 3.375 gm/Sodium Chloride 50 ml @ 100 mls/hr Q6HRS IV Last administered on 04/21/18at 15:12; Start 04/21/18 at 08:00 Micafungin Sodium 100 mg/Dextrose 100 ml @ 100 mls/hr Q24H IV Last administered on 04/21/18at 08:26; Start 04/21/18 at 08:00 Vancomycin HCl (Vanco Per Pharmacy) 1 each PRN DAILY PRN MC SEE COMMENTS Last administered on 04/21/18at 09:11; Start 04/21/18 at 09:15 Vancomycin HCl 1 gm/Sodium Chloride 250 ml @ 250 mls/hr Q24H IV ; Start at 19:30 Vancomycin HCl (Vancomycin Trough Level) 1 each 1X ONCE MC ; Start 04/22/18 at 19:00; Stop 04/22/18 at 19:01 Aspirin (Ecotrin) 81 mg [id number] PO Last administered on 04/21/18at 11:58; Start 04/21/18 at 10:00 Atorvastatin Calcium (Lipitor) 40 mg QHS PO ; Start 04/21/18 at 21:00 Lidocaine/Sodium Bicarbonate (Buffered Lidocaine 1%) 3 ml STK-MED ONCE .ROUTE ; Start 04/21/18 at 10:17; Stop 04/21/18 at 10:18; Status DC Pantoprazole Sodium (PROTONIX VIAL for IV PUSH) 40 mg DAILYAC IVP Last administered on 04/21/18at 11:58; Start 04/21/18 at 11:00 Midazolam HCl (Versed) 2 mg STK-MED ONCE .ROUTE ; Start 04/21/18 at 10:53; Stop 04/21/18 at 10:55; Status DC Fentanyl Citrate (Fentanyl 2ml Vial) 100 mcg STK-MED ONCE .ROUTE ; Start at 10:53; Stop 04/21/18 at 10:56; Status DC Lidocaine/Sodium Bicarbonate (Buffered Lidocaine 1%) 3 ml 1X ONCE IJ Last administered on 04/21/18at 11:37; Start 04/21/18 at 11:00; Stop 04/21/18 at 11:02 ; Status DC Midazolam HCl (Versed) 2 mg 1X ONCE IV Last administered on 04/21/18at 11:37; Start 04/21/18 at 11:00; Stop 04/21/18 at 11:02; Status DC Fentanyl Citrate (Fentanyl 2ml Vial) 100 mcg 1X ONCE IV Last administered on at 11:37; Start 04/21/18 at 11:00; Stop 04/21/18 at 11:02; Status DC Active Scripts Active Lipitor (Atorvastatin Calcium) 40 Mg Tablet 1 Tab PO QHS Aspirin Ec (Aspirin) 81 Mg Tablet. 81 Mg PO DAILYWBKFT Brilinta (Ticagrelor) 90 Mg Tablet 90 Mg PO BID Reported Soma (Carisoprodol) 350 Mg Tablet 1 Tab PO BID Omeprazole 40 Mg Capsule.dr 1 Cap PO DAILY Symbicort 80-4.5 Mcg Inhaler (Budesonide/Formoterol Fumarate) 10.2 Gm Hfa.aer.ad 1 Puff IH BID Metformin Hcl 500 Mg Tablet 500 Mg PO BIDWMEALS Amaryl (Glimepiride) 4 Mg Tablet 1 Tab PO DAILY Amlodipine Besylate 5 Mg Tablet 5 Mg PO DAILY Carvedilol (Carvedilol) 12.5 Mg Tablet 1 Tab PO BID Colestipol Hcl 1 Gm Tablet 2 Gm PO 1X Magnesium Oxide 400 Mg Tablet 250 Tab PO DAILY Vitamin D3 (Cholecalciferol (Vitamin D3)) 1,000 Unit Tablet 2,000 Tab PO DAILY Vitals/I & O Vital Sign - Last 24 Hours 04/20/18 04/20/18 04/20/18 04/20/18 17:30 17:51 18:35 18:41 Temp 98.8 98.8 Pulse 136 126 124 124 Resp 20 20 16 16 B/P (MAP) 133/89 (104) 134/90 (105) 109/83 (92) 114/82 (93) Pulse Ox 95 95 95 94 O2 Delivery Room Air Room Air 04/20/18 04/20/18 04/20/18 04/20/18 18:53 19:21 19:51 20:15 Temp 98.4 98.4 Pulse 122 114 112 118 Resp 16 28 B/P (MAP) 132/84 (100) 147/74 (98) 135/75 (95) Pulse Ox 96 94 94 97 O2 Delivery Room Air Room Air Room Air Room Air 04/20/18 04/20/18 04/20/18 04/20/18 20:30 20:30 20:45 21:00 Pulse 116 114 117 Resp B/P (MAP) 140/81 (100) 116/61 (79) 113/74 (87) Pulse Ox 97 96 97 O2 Delivery Room Air Room Air Room Air Room Air 04/20/18 04/20/18 04/21/18 04/21/18 22:00 23:00 00:00 00:00 Temp 98.6 98.6 Pulse 106 105 102 Resp B/P (MAP) 107/65 (79) 97/58 (71) 101/65 (77) Pulse Ox 96 95 96 O2 Delivery Room Air Room Air Room Air Room Air 04/21/18 04/21/18 04/21/18 04/21/18 01:00 02:00 02:15 02:30 Pulse 96 74 74 72 Resp 21 B/P (MAP) 82/48 (59) 76/47 (57) 78/39 (52) 93/45 (61) Pulse Ox 96 96 O2 Delivery Room Air Room Air 04/21/18 04/21/18 04/21/18 04/21/18 02:45 03:00 03:15 03:30 Pulse 81 73 88 88 Resp 22 B/P (MAP) 91/47 (62) 102/51 (68) 104/58 (73) 117/60 (79) Pulse Ox 98 O2 Delivery Room Air 04/21/18 04/21/18 04/21/18 04/21/18 03:45 04:00 04:00 04:15 Temp 98.4 98.4 Pulse 77 82 90 Resp 22 B/P (MAP) 114/63 (80) 99/56 (70) 96/61 (73) Pulse Ox 93 O2 Delivery Room Air Room Air 04/21/18 04/21/18 04/21/18/30/19 05:00 05:15 05:30 05:45 Pulse 76 64 72 68 Resp 23 B/P (MAP) 85/40 (55) 82/42 (55) 104/57 (73) 112/62 (79) Pulse Ox 94 O2 Delivery Room Air 04/21/18 04/21/18 04/21/18 04/21/18 06:00 07:00 07:29 08:00 Temp 98.5 98.5 Pulse 77 78 Resp 22 B/P (MAP) 108/62 (77) 103/59 (74) Pulse Ox 96 96 96 O2 Delivery Room Air Room Air Room Air Room Air 04/21/18 04/21/18 04/21/18 04/21/18 08:00 08:31 09:00 10:00 Pulse 80 112 104 Resp 22 B/P (MAP) 106/68 (81) 105/68 (80) 99/58 (72) Pulse Ox 96 96 96 96 O2 Delivery Room Air Room Air Room Air Room Air 04/21/18 04/21/18 04/21/18 04/21/18 11:00 11:20 11:25 11:30 Pulse 105 92 108 102 Resp 22 14 16 20 B/P (MAP) 105/60 (75) Pulse Ox 96 98 96 96 O2 Delivery Room Air Nasal Cannula Nasal Cannula Nasal Cannula O2 Flow Rate 2.0 2.0 2.0 04/21/18 04/21/18 04/21/18 04/21/18 11:30 11:37 11:40 12:00 Pulse 106 108 Resp 20 20 22 Pulse Ox 97 96 94 O2 Delivery Nasal Cannula Nasal Cannula Room Air Room Air O2 Flow Rate 2.0 2.0 04/21/18 04/21/18 04/21/18 04/21/18 12:00 13:00 14:00 14:58 Pulse 77 74 70 Resp 22 B/P (MAP) 113/62 (79) 108/56 (73) 106/62 (77) Pulse Ox 96 96 96 96 O2 Delivery Room Air Room Air Room Air Room Air O2 Flow Rate 2.0 04/21/18 16:00 O2 Delivery Room Air Intake and Output 04/20/18 04/20/18 04/21/18 15:01 23:01 07:01 Intake Total 1100 ml 3077 ml Output Total 1 ml Balance 1099 ml 3077 ml Nutrition Consultation Dietary Evaluation: Recommendations by RD: PPN/TPN Comments: REC PPN initiation for short-term nutrition needs while pt remains NPO Goal diet - regular, honor food preferences Expected Outcomes/Goals: Initiation of nutrition within 24-48 hrs Interpretation of weight loss: >5% in 1 month Malnutrition Findings: Food and Nutrition Intake (Mod: <75% est energy req 7days Weight Status: Appropriate ANITA ALVARADO MD Apr 21, 2018 16:22
[2018-04-21] MEDS ORDERED: SALIVA STIMULANT AGENT 44ML SPRAY BOTTLE. PO PRN (16:30)
[2018-04-21] MEDS ORDERED: DEXTROSE 50% 25 GM / 50ML DISP.SYRIN. IV PRN (16:30)
[2018-04-21] MEDS ORDERED: INSULIN LISPRO 300 UNITS/3 ML INSULN.PEN. SQ SCH (17:00)
[2018-04-21] MEDS: AMINO AC 3%/ELECTROLYTE/GLYCER 1,000 ML IV SCH (18:18)
[2018-04-21] MEDS ORDERED: VANCOMYCIN 1 GM in IV NORMAL SALINE 250ML 250 ML IV SCH (19:30)
[2018-04-21] MEDS: ATORVASTATIN CALCIUM 40 MG TABLET. PO SCH (20:49)
[2018-04-21] MEDS ORDERED: MORPHINE SULFATE 4 MG/ML VIAL. IV PRN (21:30)
[2018-04-22] VITALS (13 sets, daily range): BP systolic 88–109; BP diastolic 40–59
[2018-04-22] MEDS: PIPERACILLIN/TAZOBACTAM 3.375 GM in IV NORMAL SALINE 50ML 50 ML IV SCH ×5 (00:21→23:39)
[2018-04-22 05:00] LABS: BASO % 0 % (0-3); EOS # 0.1 x10^3/uL (0.0-0.7); EOS % 1 % (0-3); HEMATOCRIT 32.2 % (39.0-53.0); HEMOGLOBIN 10.7 g/dL (13.0-17.5); LYMPH # 1.4 x10^3/uL (1.0-4.8); LYMPH % 13 % (24-48); MEAN CORPUSCULAR HEMOGLOBIN 30 pg (25-35); MEAN CORPUSCULAR HGB CONC 33 g/dL (31-37); MEAN CORPUSCULAR VOLUME 89 fL (79-100); MONO # 0.7 x10^3/uL (0.0-1.1); MONO % 7 % (0-9); NEUT # 8.5 x10^3uL (1.8-7.7); NEUT % 79 % (31-73); PLATELET COUNT 285 x10^3/uL (140-400); RED BLOOD COUNT 3.62 x10^6/uL (4.30-5.70); RED CELL DISTRIBUTION WIDTH 14.1 % (11.5-14.5); WHITE BLOOD COUNT 10.8 x10^3/uL (4.0-11.0)
[2018-04-22 05:34] LABS: ALBUMIN 1.9 g/dL (3.4-5.0); ALBUMIN/GLOBULIN RATIO 0.5 (1.0-1.7); CALCIUM 7.6 mg/dL (8.5-10.1); CREATININE 0.9 mg/dL (0.7-1.3); POTASSIUM 3.8 mmol/L (3.5-5.1); TOTAL BILIRUBIN 0.3 mg/dL (0.2-1.0); TOTAL PROTEIN 5.6 g/dL (6.4-8.2)
--- NOTE | 2018-04-22 06:52 | PDOC ---
Infectious Disease Note Subjective Subjective Feeling better. Mild discomfort No F/C/S/SOA/Rash/dysuria/N/V/D ROS ROS o/w neg Vital Sign Vital Signs Vital Signs Date Time Temp Pulse Resp B/P (MAP) Pulse Ox O2 Delivery O2 Flow Rate FiO2 04/22/18 06:00 69 24 91/59 (70) 93 Room Air 04/22/18 04:00 98.1 98.1 04/21/18 18:08 2.0 Physical Exam PHYSICAL EXAM CONSTITUTIONAL: He is alert, cooperative. He is in no acute distress. He is pleasant. HEENT: Pupils equal and reactive. Oral cavity, pharynx is clear. NECK: Supple, no JVD. LUNGS: Clear to auscultation. HEART: S1, S2. ABDOMEN: Soft. JEREMY in place EXTREMITIES: No clubbing, cyanosis or gross edema. SKIN: Warm to touch without signs of rash. NEUROLOGIC: He is nonfocal and appropriate. PSYCHIATRIC: Affect is pleasant. ACCESS: IV sites are clean. Labs Lab Laboratory Tests Test 04/21/18 07:55 04/21/18 17:21 04/21/18 21:36 04/22/18 04:20 Prothrombin Time 15.1 SEC (11.7-14.0) Prothromb Time International Ratio 1.2 (0.8-1.1) Glucose (Fingerstick) 192 mg/dL (70-99) 200 mg/dL (70-99) White Blood Count 10.8 x10^3/uL (4.0-11.0) Red Blood Count 3.62 x10^6/uL (4.30-5.70) Hemoglobin 10.7 g/dL (13.0-17.5) Hematocrit 32.2 % (39.0-53.0) Mean Corpuscular Volume 89 fL (79-100) Mean Corpuscular Hemoglobin 30 pg (25-35) Mean Corpuscular Hemoglobin Concent 33 g/dL (31-37) Red Cell Distribution Width 14.1 % (11.5-14.5) Platelet Count 285 x10^3/uL (140-400) Neutrophils (%) (Auto) 79 % (31-73) Lymphocytes (%) (Auto) 13 % (24-48) Monocytes (%) (Auto) 7 % (0-9) Eosinophils (%) (Auto) 1 % (0-3) Basophils (%) (Auto) 0 % (0-3) Neutrophils # (Auto) 8.5 x10^3uL (1.8-7.7) Lymphocytes # (Auto) 1.4 x10^3/uL (1.0-4.8) Monocytes # (Auto) 0.7 x10^3/uL (0.0-1.1) Eosinophils # (Auto) 0.1 x10^3/uL (0.0-0.7) Basophils # (Auto) 0.0 x10^3/uL (0.0-0.2) Sodium Level 137 mmol/L (136-145) Potassium Level 3.8 mmol/L (3.5-5.1) Chloride Level 104 mmol/L (98-107) Carbon Dioxide Level 24 mmol/L (21-32) Anion Gap 9 (6-14) Blood Urea Nitrogen 17 mg/dL (8-26) Creatinine 0.9 mg/dL (0.7-1.3) Estimated GFR (Cockcroft-Gault) 81.0 BUN/Creatinine Ratio 19 (6-20) Glucose Level 217 mg/dL (70-99) Calcium Level 7.6 mg/dL (8.5-10.1) Total Bilirubin 0.3 mg/dL (0.2-1.0) Aspartate Amino Transf (AST/SGOT) 123 U/L (15-37) Alanine Aminotransferase (ALT/SGPT) 191 U/L (16-63) Alkaline Phosphatase 105 U/L (46-116) Total Protein 5.6 g/dL (6.4-8.2) Albumin 1.9 g/dL (3.4-5.0) Albumin/Globulin Ratio 0.5 (1.0-1.7) Micro Microbiology 04/20/18 Blood Culture - Preliminary, Resulted NO GROWTH AFTER 1 DAY Objective Assessment Sepsis - POA Off Levophed now. C-diff neg/MRSA neg Leukocytosis - better Perf Viscous Abd abscesses - S/p IR 04/21 Transaminitis DM Plan Plan of Care Cont Vanc/ Zosyn and Micafungin F/u labs and cults AUNG CASTRO MD Apr 22, 2018 06:52
[2018-04-22] MEDS: AMINO AC 3%/ELECTROLYTE/GLYCER 1,000 ML IV SCH ×2 (06:58→17:11)
[2018-04-22] MEDS: IV NORMAL SALINE 1000ML BAG 1,000 ML IV SCH ×3 (07:00→13:40)
[2018-04-22] MEDS: INSULIN LISPRO 300 UNITS/3 ML INSULN.PEN. SQ SCH ×3 (07:40→17:16)
[2018-04-22] MEDS: MICAFUNGIN 100 MG in IV DEXTROSE 5% 100ML 100 ML IV SCH (07:51)
[2018-04-22] MEDS: ASPIRIN ENTERIC COATED 81 MG TABLET.DR. PO SCH (07:51)
[2018-04-22] MEDS: PANTOPRAZOLE IV PUSH 40 MG VIAL. IVP SCH (07:51)
[2018-04-22] MEDS: INSULIN GLARGINE 300 UNITS/3 ML INSULN.PEN. SQ SCH (10:34)
--- NOTE | 2018-04-22 12:01 | PDOC ---
SURGICAL PROGRESS NOTE Subjective Pt feels much better, no N/V, hungry, pain resolved Vital Signs Vital Signs Date Time Temp Pulse Resp B/P (MAP) Pulse Ox O2 Delivery O2 Flow Rate FiO2 04/22/18 08:00 97.9 66 18 106/58 (74) 96 Room Air 97.9 04/21/18 18:08 2.0 I&O Intake and Output 04/22/18 07:01 Intake Total 3327 ml Output Total 47 ml Balance 3280 ml Intake Oral 0 ml IV Total 3317 ml Other 10 ml Output Urine Total 2 ml Drainage Total 35 ml Other 10 ml # Voids 2 # Bowel Movements 1 General: Alert, Oriented X3, Cooperative, No acute distress Abdomen: Soft, No tenderness, Other (drain with purulent discharge) Labs Laboratory Tests Test 04/20/18 17:20 04/20/18 18:20 04/20/18 18:48 04/20/18 21:00 Urine Collection Type Unknown Urine Color Yellow Urine Clarity Clear Urine pH 5.0 Urine Specific Burnett >=1.030 Urine Protein Negative mg/dL (NEG-TRACE) Urine Glucose (UA) >=1000 mg/dL (NEG) Urine Ketones (Stick) Trace mg/dL (NEG) Urine Blood Negative (NEG) Urine Nitrite Negative (NEG) Urine Bilirubin Negative (NEG) Urine Urobilinogen Dipstick 0.2 mg/dL (0.2 mg/dL) Urine Leukocyte Esterase Negative (NEG) Urine RBC 0 /HPF (0-2) Urine WBC 0 /HPF (0-4) Urine Bacteria 0 /HPF (0-FEW) White Blood Count 13.4 x10^3/uL (4.0-11.0) Red Blood Count 4.31 x10^6/uL (4.30-5.70) Hemoglobin 12.4 g/dL (13.0-17.5) Hematocrit 38.1 % (39.0-53.0) Mean Corpuscular Volume 88 fL (79-100) Mean Corpuscular Hemoglobin 29 pg (25-35) Mean Corpuscular Hemoglobin Concent 33 g/dL (31-37) Red Cell Distribution Width 13.9 % (11.5-14.5) Platelet Count 379 x10^3/uL (140-400) Neutrophils (%) (Auto) 92 % (31-73) Lymphocytes (%) (Auto) 5 % (24-48) Monocytes (%) (Auto) 3 % (0-9) Eosinophils (%) (Auto) 0 % (0-3) Basophils (%) (Auto) 0 % (0-3) Neutrophils # (Auto) 12.3 x10^3uL (1.8-7.7) Lymphocytes # (Auto) 0.6 x10^3/uL (1.0-4.8) Monocytes # (Auto) 0.5 x10^3/uL (0.0-1.1) Eosinophils # (Auto) 0.0 x10^3/uL (0.0-0.7) Basophils # (Auto) 0.1 x10^3/uL (0.0-0.2) Segmented Neutrophils % 85 % (35-66) Band Neutrophils % 11 % (0-9) Lymphocytes % 1 % (24-48) Monocytes % 1 % (0-10) Myelocytes % 2 % (0-0) Platelet Estimate Adequate (ADEQUATE) Sodium Level 134 mmol/L (136-145) Potassium Level 4.4 mmol/L (3.5-5.1) Chloride Level 95 mmol/L (98-107) Carbon Dioxide Level 28 mmol/L (21-32) Anion Gap 11 (6-14) Blood Urea Nitrogen 28 mg/dL (8-26) Creatinine 1.1 mg/dL (0.7-1.3) Estimated GFR (Cockcroft-Gault) 64.2 BUN/Creatinine Ratio 25 (6-20) Glucose Level 529 mg/dL (70-99) Lactic Acid Level 1.4 mmol/L (0.4-2.0) Calcium Level 9.3 mg/dL (8.5-10.1) Total Bilirubin 0.4 mg/dL (0.2-1.0) Aspartate Amino Transf (AST/SGOT) 82 U/L (15-37) Alanine Aminotransferase (ALT/SGPT) 81 U/L (16-63) Alkaline Phosphatase 112 U/L (46-116) Total Protein 7.4 g/dL (6.4-8.2) Albumin 2.7 g/dL (3.4-5.0) Albumin/Globulin Ratio 0.6 (1.0-1.7) Procalcitonin 0.15 ng/mL (0.00-0.10) Stool Occult Blood Positive (NEG) Nasal Screen MRSA (PCR) Negative (Negative) Test 04/20/18 21:09 04/20/18 23:29 04/21/18 05:20 04/21/18 07:55 Glucose (Fingerstick) 306 mg/dL (70-99) Clostridium difficile Toxin B Gene Negative (Negative) White Blood Count 13.7 x10^3/uL (4.0-11.0) Red Blood Count 3.69 x10^6/uL (4.30-5.70) Hemoglobin 10.7 g/dL (13.0-17.5) Hematocrit 32.6 % (39.0-53.0) Mean Corpuscular Volume 88 fL (79-100) Mean Corpuscular Hemoglobin 29 pg (25-35) Mean Corpuscular Hemoglobin Concent 33 g/dL (31-37) Red Cell Distribution Width 14.0 % (11.5-14.5) Platelet Count 372 x10^3/uL (140-400) Neutrophils (%) (Auto) 76 % (31-73) Lymphocytes (%) (Auto) 13 % (24-48) Monocytes (%) (Auto) 10 % (0-9) Eosinophils (%) (Auto) 0 % (0-3) Basophils (%) (Auto) 0 % (0-3) Neutrophils # (Auto) 10.5 x10^3uL (1.8-7.7) Lymphocytes # (Auto) 1.8 x10^3/uL (1.0-4.8) Monocytes # (Auto) 1.4 x10^3/uL (0.0-1.1) Eosinophils # (Auto) 0.0 x10^3/uL (0.0-0.7) Basophils # (Auto) 0.0 x10^3/uL (0.0-0.2) Sodium Level 142 mmol/L (136-145) Potassium Level 3.6 mmol/L (3.5-5.1) Chloride Level 106 mmol/L (98-107) Carbon Dioxide Level 26 mmol/L (21-32) Anion Gap 10 (6-14) Blood Urea Nitrogen 19 mg/dL (8-26) Creatinine 0.8 mg/dL (0.7-1.3) Estimated GFR (Cockcroft-Gault) 92.8 BUN/Creatinine Ratio 24 (6-20) Glucose Level 204 mg/dL (70-99) Calcium Level 7.9 mg/dL (8.5-10.1) Total Bilirubin 0.3 mg/dL (0.2-1.0) Aspartate Amino Transf (AST/SGOT) 82 U/L (15-37) Alanine Aminotransferase (ALT/SGPT) 84 U/L (16-63) Alkaline Phosphatase 79 U/L (46-116) Total Protein 5.8 g/dL (6.4-8.2) Albumin 2.0 g/dL (3.4-5.0) Albumin/Globulin Ratio 0.5 (1.0-1.7) Prothrombin Time 15.1 SEC (11.7-14.0) Prothromb Time International Ratio 1.2 (0.8-1.1) Test 04/21/18 17:21 04/21/18 21:36 04/22/18 04:20 Glucose (Fingerstick) 192 mg/dL (70-99) 200 mg/dL (70-99) White Blood Count 10.8 x10^3/uL (4.0-11.0) Red Blood Count 3.62 x10^6/uL (4.30-5.70) Hemoglobin 10.7 g/dL (13.0-17.5) Hematocrit 32.2 % (39.0-53.0) Mean Corpuscular Volume 89 fL (79-100) Mean Corpuscular Hemoglobin 30 pg (25-35) Mean Corpuscular Hemoglobin Concent 33 g/dL (31-37) Red Cell Distribution Width 14.1 % (11.5-14.5) Platelet Count 285 x10^3/uL (140-400) Neutrophils (%) (Auto) 79 % (31-73) Lymphocytes (%) (Auto) 13 % (24-48) Monocytes (%) (Auto) 7 % (0-9) Eosinophils (%) (Auto) 1 % (0-3) Basophils (%) (Auto) 0 % (0-3) Neutrophils # (Auto) 8.5 x10^3uL (1.8-7.7) Lymphocytes # (Auto) 1.4 x10^3/uL (1.0-4.8) Monocytes # (Auto) 0.7 x10^3/uL (0.0-1.1) Eosinophils # (Auto) 0.1 x10^3/uL (0.0-0.7) Basophils # (Auto) 0.0 x10^3/uL (0.0-0.2) Sodium Level 137 mmol/L (136-145) Potassium Level 3.8 mmol/L (3.5-5.1) Chloride Level 104 mmol/L (98-107) Carbon Dioxide Level 24 mmol/L (21-32) Anion Gap 9 (6-14) Blood Urea Nitrogen 17 mg/dL (8-26) Creatinine 0.9 mg/dL (0.7-1.3) Estimated GFR (Cockcroft-Gault) 81.0 BUN/Creatinine Ratio 19 (6-20) Glucose Level 217 mg/dL (70-99) Calcium Level 7.6 mg/dL (8.5-10.1) Total Bilirubin 0.3 mg/dL (0.2-1.0) Aspartate Amino Transf (AST/SGOT) 123 U/L (15-37) Alanine Aminotransferase (ALT/SGPT) 191 U/L (16-63) Alkaline Phosphatase 105 U/L (46-116) Total Protein 5.6 g/dL (6.4-8.2) Albumin 1.9 g/dL (3.4-5.0) Albumin/Globulin Ratio 0.5 (1.0-1.7) Laboratory Tests Test 04/21/18 17:21 04/21/18 21:36 04/22/18 04:20 Glucose (Fingerstick) 192 mg/dL (70-99) 200 mg/dL (70-99) White Blood Count 10.8 x10^3/uL (4.0-11.0) Red Blood Count 3.62 x10^6/uL (4.30-5.70) Hemoglobin 10.7 g/dL (13.0-17.5) Hematocrit 32.2 % (39.0-53.0) Mean Corpuscular Volume 89 fL (79-100) Mean Corpuscular Hemoglobin 30 pg (25-35) Mean Corpuscular Hemoglobin Concent 33 g/dL (31-37) Red Cell Distribution Width 14.1 % (11.5-14.5) Platelet Count 285 x10^3/uL (140-400) Neutrophils (%) (Auto) 79 % (31-73) Lymphocytes (%) (Auto) 13 % (24-48) Monocytes (%) (Auto) 7 % (0-9) Eosinophils (%) (Auto) 1 % (0-3) Basophils (%) (Auto) 0 % (0-3) Neutrophils # (Auto) 8.5 x10^3uL (1.8-7.7) Lymphocytes # (Auto) 1.4 x10^3/uL (1.0-4.8) Monocytes # (Auto) 0.7 x10^3/uL (0.0-1.1) Eosinophils # (Auto) 0.1 x10^3/uL (0.0-0.7) Basophils # (Auto) 0.0 x10^3/uL (0.0-0.2) Sodium Level 137 mmol/L (136-145) Potassium Level 3.8 mmol/L (3.5-5.1) Chloride Level 104 mmol/L (98-107) Carbon Dioxide Level 24 mmol/L (21-32) Anion Gap 9 (6-14) Blood Urea Nitrogen 17 mg/dL (8-26) Creatinine 0.9 mg/dL (0.7-1.3) Estimated GFR (Cockcroft-Gault) 81.0 BUN/Creatinine Ratio 19 (6-20) Glucose Level 217 mg/dL (70-99) Calcium Level 7.6 mg/dL (8.5-10.1) Total Bilirubin 0.3 mg/dL (0.2-1.0) Aspartate Amino Transf (AST/SGOT) 123 U/L (15-37) Alanine Aminotransferase (ALT/SGPT) 191 U/L (16-63) Alkaline Phosphatase 105 U/L (46-116) Total Protein 5.6 g/dL (6.4-8.2) Albumin 1.9 g/dL (3.4-5.0) Albumin/Globulin Ratio 0.5 (1.0-1.7) Problem List Problems Medical Problems: (1) Abdominal abscess Status: Acute (2) Diverticulosis Status: Acute (3) Hyperglycemia Status: Acute (4) Perforation bowel Status: Acute Assessment/Plan abd abscess appears better pending drainage ADAT, cont abx and drains OK to transfer to floor and work on d/c planning plan repeat imaging in a few weeks, and based on this would consider laparoscopic exploration and possible ileocolic resection, based on abnormal area in this area in 6 weeks or so. LUIZA JOHNSON MD Apr 22, 2018 12:01
[2018-04-22] MEDS: VANCOMYCIN PER PHARMACY MC PRN ×3 (12:35→20:18)
--- NOTE | 2018-04-22 12:38 | PDOC ---
Subjective: Subjective: Hungry, wants milk. Says someone said he could have liquids. Not much pain, had a few small stools. Objective: Vital Signs: Vital Signs Date Time Temp Pulse Resp B/P (MAP) Pulse Ox O2 Delivery O2 Flow Rate FiO2 04/22/18 12:00 97.7 73 18 106/55 (72) 95 Room Air 97.7 04/21/18 18:08 2.0 Labs: Laboratory Tests Test 04/21/18 17:21 04/21/18 21:36 04/22/18 04:20 04/22/18 12:01 Glucose (Fingerstick) 192 mg/dL 200 mg/dL 241 mg/dL White Blood Count 10.8 x10^3/uL Red Blood Count 3.62 x10^6/uL Hemoglobin 10.7 g/dL Hematocrit 32.2 % Mean Corpuscular Volume 89 fL Mean Corpuscular Hemoglobin 30 pg Mean Corpuscular Hemoglobin Concent 33 g/dL Red Cell Distribution Width 14.1 % Platelet Count 285 x10^3/uL Neutrophils (%) (Auto) 79 % Lymphocytes (%) (Auto) 13 % Monocytes (%) (Auto) 7 % Eosinophils (%) (Auto) 1 % Basophils (%) (Auto) 0 % Neutrophils # (Auto) 8.5 x10^3uL Lymphocytes # (Auto) 1.4 x10^3/uL Monocytes # (Auto) 0.7 x10^3/uL Eosinophils # (Auto) 0.1 x10^3/uL Basophils # (Auto) 0.0 x10^3/uL Sodium Level 137 mmol/L Potassium Level 3.8 mmol/L Chloride Level 104 mmol/L Carbon Dioxide Level 24 mmol/L Anion Gap 9 Blood Urea Nitrogen 17 mg/dL Creatinine 0.9 mg/dL Estimated GFR (Cockcroft-Gault) 81.0 BUN/Creatinine Ratio 19 Glucose Level 217 mg/dL Calcium Level 7.6 mg/dL Total Bilirubin 0.3 mg/dL Aspartate Amino Transf (AST/SGOT) 123 U/L Alanine Aminotransferase (ALT/SGPT) 191 U/L Alkaline Phosphatase 105 U/L Total Protein 5.6 g/dL Albumin 1.9 g/dL Albumin/Globulin Ratio 0.5 PE: GEN: NAD, up to chair LUNGS: room air HEART: RRR ABD: soft, drain NEURO/PSYCH: A & O �3 A/P: Abd abscess s/p drain placement Sepsis Anemia - stable Mild transaminitis -- Per surgery - plan to repeat imaging in a few weeks prior to possible exploration/resection. Monitor LFTs, consider liver US. Looks like plans to try clears. EMILY KNIGHT Apr 22, 2018 12:38
--- NOTE | 2018-04-22 14:10 | NUR ---
Pt arrived on the floor at 1400 from ICU. VSS. No pain. Oriented pt to room, call light, and visitation hours. Will continue to monitor.
--- NOTE | 2018-04-22 14:39 | PDOC ---
PROGRESS NOTES Chief Complaint Chief Complaint 1. Acute abdominal pain, sepsis, with perforated bowel, prob diverticula, 2. abdominal abscesses 3, diabetes 2, hyperglycemia 4. CAD post stent 2018 5. severe malnutrition, POA History of Present Illness History of Present Illness cont broad abx drain working well, fluid looks less dark, emptyed x3 overnight, pain much better, up to chair will transfer to floor gen surg and GI and ID following better glucose control needed, on SSI, add lantus today Vitals Vitals Vital Signs Date Time Temp Pulse Resp B/P (MAP) Pulse Ox O2 Delivery O2 Flow Rate FiO2 04/22/18 12:00 97.7 73 18 106/55 (72) 95 Room Air 97.7 04/21/18 18:08 2.0 Physical Exam Physical Exam CONSTITUTIONAL: He is alert, cooperative. He is in no acute distress. He is pleasant. HEENT: Pupils equal and reactive. Oral cavity, pharynx is clear. NECK: Supple, no JVD. LUNGS: Clear to auscultation. HEART: S1, S2. ABDOMEN: Soft. JEREMY in place EXTREMITIES: No clubbing, cyanosis or gross edema. SKIN: Warm to touch without signs of rash. NEUROLOGIC: He is nonfocal and appropriate. PSYCHIATRIC: Affect is pleasant. ACCESS: IV sites are clean. General: Alert, Oriented X3, Cooperative, No acute distress Heart: Regular rate (SR no ectopies), Normal S1, Normal S2, Other (2/6 systolic murmur to LLS border) Lungs: Clear Abdomen: Soft, No tenderness, Other (drain with purulent discharge) Extremities: No cyanosis, No edema Skin: No breakdown, No significant lesion Labs LABS Laboratory Tests Test 04/21/18 17:21 04/21/18 21:36 04/22/18 04:20 04/22/18 12:01 Glucose (Fingerstick) 192 mg/dL (70-99) 200 mg/dL (70-99) 241 mg/dL (70-99) White Blood Count 10.8 x10^3/uL (4.0-11.0) Red Blood Count 3.62 x10^6/uL (4.30-5.70) Hemoglobin 10.7 g/dL (13.0-17.5) Hematocrit 32.2 % (39.0-53.0) Mean Corpuscular Volume 89 fL (79-100) Mean Corpuscular Hemoglobin 30 pg (25-35) Mean Corpuscular Hemoglobin Concent 33 g/dL (31-37) Red Cell Distribution Width 14.1 % (11.5-14.5) Platelet Count 285 x10^3/uL (140-400) Neutrophils (%) (Auto) 79 % (31-73) Lymphocytes (%) (Auto) 13 % (24-48) Monocytes (%) (Auto) 7 % (0-9) Eosinophils (%) (Auto) 1 % (0-3) Basophils (%) (Auto) 0 % (0-3) Neutrophils # (Auto) 8.5 x10^3uL (1.8-7.7) Lymphocytes # (Auto) 1.4 x10^3/uL (1.0-4.8) Monocytes # (Auto) 0.7 x10^3/uL (0.0-1.1) Eosinophils # (Auto) 0.1 x10^3/uL (0.0-0.7) Basophils # (Auto) 0.0 x10^3/uL (0.0-0.2) Sodium Level 137 mmol/L (136-145) Potassium Level 3.8 mmol/L (3.5-5.1) Chloride Level 104 mmol/L (98-107) Carbon Dioxide Level 24 mmol/L (21-32) Anion Gap 9 (6-14) Blood Urea Nitrogen 17 mg/dL (8-26) Creatinine 0.9 mg/dL (0.7-1.3) Estimated GFR (Cockcroft-Gault) 81.0 BUN/Creatinine Ratio 19 (6-20) Glucose Level 217 mg/dL (70-99) Calcium Level 7.6 mg/dL (8.5-10.1) Total Bilirubin 0.3 mg/dL (0.2-1.0) Aspartate Amino Transf (AST/SGOT) 123 U/L (15-37) Alanine Aminotransferase (ALT/SGPT) 191 U/L (16-63) Alkaline Phosphatase 105 U/L (46-116) Total Protein 5.6 g/dL (6.4-8.2) Albumin 1.9 g/dL (3.4-5.0) Albumin/Globulin Ratio 0.5 (1.0-1.7) Review of Systems Review of Systems pain better, slept OK feeling improved, no nv.d. Assessment and Plan Assessmemt and Plan Problems Medical Problems: (1) Abdominal abscess Status: Acute (2) Diverticulosis Status: Acute (3) Hyperglycemia Status: Acute (4) Perforation bowel Status: Acute Comment Review of Relevant I have reviewed the following items mukesh (where applicable) has been applied. Labs Laboratory Tests Test 04/20/18 17:20 04/20/18 18:20 04/20/18 18:48 04/20/18 21:00 Urine Collection Type Unknown Urine Color Yellow Urine Clarity Clear Urine pH 5.0 Urine Specific [place] >=1.030 Urine Protein Negative mg/dL (NEG-TRACE) Urine Glucose (UA) >=1000 mg/dL (NEG) Urine Ketones (Stick) Trace mg/dL (NEG) Urine Blood Negative (NEG) Urine Nitrite Negative (NEG) Urine Bilirubin Negative (NEG) Urine Urobilinogen Dipstick 0.2 mg/dL (0.2 mg/dL) Urine Leukocyte Esterase Negative (NEG) Urine RBC 0 /HPF (0-2) Urine WBC 0 /HPF (0-4) Urine Bacteria 0 /HPF (0-FEW) White Blood Count 13.4 x10^3/uL (4.0-11.0) Red Blood Count 4.31 x10^6/uL (4.30-5.70) Hemoglobin 12.4 g/dL (13.0-17.5) Hematocrit 38.1 % (39.0-53.0) Mean Corpuscular Volume 88 fL (79-100) Mean Corpuscular Hemoglobin 29 pg (25-35) Mean Corpuscular Hemoglobin Concent 33 g/dL (31-37) Red Cell Distribution Width 13.9 % (11.5-14.5) Platelet Count 379 x10^3/uL (140-400) Neutrophils (%) (Auto) 92 % (31-73) Lymphocytes (%) (Auto) 5 % (24-48) Monocytes (%) (Auto) 3 % (0-9) Eosinophils (%) (Auto) 0 % (0-3) Basophils (%) (Auto) 0 % (0-3) Neutrophils # (Auto) 12.3 x10^3uL (1.8-7.7) Lymphocytes # (Auto) 0.6 x10^3/uL (1.0-4.8) Monocytes # (Auto) 0.5 x10^3/uL (0.0-1.1) Eosinophils # (Auto) 0.0 x10^3/uL (0.0-0.7) Basophils # (Auto) 0.1 x10^3/uL (0.0-0.2) Segmented Neutrophils % 85 % (35-66) Band Neutrophils % 11 % (0-9) Lymphocytes % 1 % (24-48) Monocytes % 1 % (0-10) Myelocytes % 2 % (0-0) Platelet Estimate Adequate (ADEQUATE) Sodium Level 134 mmol/L (136-145) Potassium Level 4.4 mmol/L (3.5-5.1) Chloride Level 95 mmol/L (98-107) Carbon Dioxide Level 28 mmol/L (21-32) Anion Gap 11 (6-14) Blood Urea Nitrogen 28 mg/dL (8-26) Creatinine 1.1 mg/dL (0.7-1.3) Estimated GFR (Cockcroft-Gault) 64.2 BUN/Creatinine Ratio 25 (6-20) Glucose Level 529 mg/dL (70-99) Lactic Acid Level 1.4 mmol/L (0.4-2.0) Calcium Level 9.3 mg/dL (8.5-10.1) Total Bilirubin 0.4 mg/dL (0.2-1.0) Aspartate Amino Transf (AST/SGOT) 82 U/L (15-37) Alanine Aminotransferase (ALT/SGPT) 81 U/L (16-63) Alkaline Phosphatase 112 U/L (46-116) Total Protein 7.4 g/dL (6.4-8.2) Albumin 2.7 g/dL (3.4-5.0) Albumin/Globulin Ratio 0.6 (1.0-1.7) Procalcitonin 0.15 ng/mL (0.00-0.10) Stool Occult Blood Positive (NEG) Nasal Screen MRSA (PCR) Negative (Negative) Test 04/20/18 21:09 04/20/18 23:29 04/21/18 05:20 04/21/18 07:55 Glucose (Fingerstick) 306 mg/dL (70-99) Clostridium difficile Toxin B Gene Negative (Negative) White Blood Count 13.7 x10^3/uL (4.0-11.0) Red Blood Count 3.69 x10^6/uL (4.30-5.70) Hemoglobin 10.7 g/dL (13.0-17.5) Hematocrit 32.6 % (39.0-53.0) Mean Corpuscular Volume 88 fL (79-100) Mean Corpuscular Hemoglobin 29 pg (25-35) Mean Corpuscular Hemoglobin Concent 33 g/dL (31-37) Red Cell Distribution Width 14.0 % (11.5-14.5) Platelet Count 372 x10^3/uL (140-400) Neutrophils (%) (Auto) 76 % (31-73) Lymphocytes (%) (Auto) 13 % (24-48) Monocytes (%) (Auto) 10 % (0-9) Eosinophils (%) (Auto) 0 % (0-3) Basophils (%) (Auto) 0 % (0-3) Neutrophils # (Auto) 10.5 x10^3uL (1.8-7.7) Lymphocytes # (Auto) 1.8 x10^3/uL (1.0-4.8) Monocytes # (Auto) 1.4 x10^3/uL (0.0-1.1) Eosinophils # (Auto) 0.0 x10^3/uL (0.0-0.7) Basophils # (Auto) 0.0 x10^3/uL (0.0-0.2) Sodium Level 142 mmol/L (136-145) Potassium Level 3.6 mmol/L (3.5-5.1) Chloride Level 106 mmol/L (98-107) Carbon Dioxide Level 26 mmol/L (21-32) Anion Gap 10 (6-14) Blood Urea Nitrogen 19 mg/dL (8-26) Creatinine 0.8 mg/dL (0.7-1.3) Estimated GFR (Cockcroft-Gault) 92.8 BUN/Creatinine Ratio 24 (6-20) Glucose Level 204 mg/dL (70-99) Calcium Level 7.9 mg/dL (8.5-10.1) Total Bilirubin 0.3 mg/dL (0.2-1.0) Aspartate Amino Transf (AST/SGOT) 82 U/L (15-37) Alanine Aminotransferase (ALT/SGPT) 84 U/L (16-63) Alkaline Phosphatase 79 U/L (46-116) Total Protein 5.8 g/dL (6.4-8.2) Albumin 2.0 g/dL (3.4-5.0) Albumin/Globulin Ratio 0.5 (1.0-1.7) Prothrombin Time 15.1 SEC (11.7-14.0) Prothromb Time International Ratio 1.2 (0.8-1.1) Test 04/21/18 17:21 04/21/18 21:36 04/22/18 04:20 04/22/18 12:01 Glucose (Fingerstick) 192 mg/dL (70-99) 200 mg/dL (70-99) 241 mg/dL (70-99) White Blood Count 10.8 x10^3/uL (4.0-11.0) Red Blood Count 3.62 x10^6/uL (4.30-5.70) Hemoglobin 10.7 g/dL (13.0-17.5) Hematocrit 32.2 % (39.0-53.0) Mean Corpuscular Volume 89 fL (79-100) Mean Corpuscular Hemoglobin 30 pg (25-35) Mean Corpuscular Hemoglobin Concent 33 g/dL (31-37) Red Cell Distribution Width 14.1 % (11.5-14.5) Platelet Count 285 x10^3/uL (140-400) Neutrophils (%) (Auto) 79 % (31-73) Lymphocytes (%) (Auto) 13 % (24-48) Monocytes (%) (Auto) 7 % (0-9) Eosinophils (%) (Auto) 1 % (0-3) Basophils (%) (Auto) 0 % (0-3) Neutrophils # (Auto) 8.5 x10^3uL (1.8-7.7) Lymphocytes # (Auto) 1.4 x10^3/uL (1.0-4.8) Monocytes # (Auto) 0.7 x10^3/uL (0.0-1.1) Eosinophils # (Auto) 0.1 x10^3/uL (0.0-0.7) Basophils # (Auto) 0.0 x10^3/uL (0.0-0.2) Sodium Level 137 mmol/L (136-145) Potassium Level 3.8 mmol/L (3.5-5.1) Chloride Level 104 mmol/L (98-107) Carbon Dioxide Level 24 mmol/L (21-32) Anion Gap 9 (6-14) Blood Urea Nitrogen 17 mg/dL (8-26) Creatinine 0.9 mg/dL (0.7-1.3) Estimated GFR (Cockcroft-Gault) 81.0 BUN/Creatinine Ratio 19 (6-20) Glucose Level 217 mg/dL (70-99) Calcium Level 7.6 mg/dL (8.5-10.1) Total Bilirubin 0.3 mg/dL (0.2-1.0) Aspartate Amino Transf (AST/SGOT) 123 U/L (15-37) Alanine Aminotransferase (ALT/SGPT) 191 U/L (16-63) Alkaline Phosphatase 105 U/L (46-116) Total Protein 5.6 g/dL (6.4-8.2) Albumin 1.9 g/dL (3.4-5.0) Albumin/Globulin Ratio 0.5 (1.0-1.7) Laboratory Tests Test 04/21/18 17:21 04/21/18 21:36 04/22/18 04:20 04/22/18 12:01 Glucose (Fingerstick) 192 mg/dL (70-99) 200 mg/dL (70-99) 241 mg/dL (70-99) White Blood Count 10.8 x10^3/uL (4.0-11.0) Red Blood Count 3.62 x10^6/uL (4.30-5.70) Hemoglobin 10.7 g/dL (13.0-17.5) Hematocrit 32.2 % (39.0-53.0) Mean Corpuscular Volume 89 fL (79-100) Mean Corpuscular Hemoglobin 30 pg (25-35) Mean Corpuscular Hemoglobin Concent 33 g/dL (31-37) Red Cell Distribution Width 14.1 % (11.5-14.5) Platelet Count 285 x10^3/uL (140-400) Neutrophils (%) (Auto) 79 % (31-73) Lymphocytes (%) (Auto) 13 % (24-48) Monocytes (%) (Auto) 7 % (0-9) Eosinophils (%) (Auto) 1 % (0-3) Basophils (%) (Auto) 0 % (0-3) Neutrophils # (Auto) 8.5 x10^3uL (1.8-7.7) Lymphocytes # (Auto) 1.4 x10^3/uL (1.0-4.8) Monocytes # (Auto) 0.7 x10^3/uL (0.0-1.1) Eosinophils # (Auto) 0.1 x10^3/uL (0.0-0.7) Basophils # (Auto) 0.0 x10^3/uL (0.0-0.2) Sodium Level 137 mmol/L (136-145) Potassium Level 3.8 mmol/L (3.5-5.1) Chloride Level 104 mmol/L (98-107) Carbon Dioxide Level 24 mmol/L (21-32) Anion Gap 9 (6-14) Blood Urea Nitrogen 17 mg/dL (8-26) Creatinine 0.9 mg/dL (0.7-1.3) Estimated GFR (Cockcroft-Gault) 81.0 BUN/Creatinine Ratio 19 (6-20) Glucose Level 217 mg/dL (70-99) Calcium Level 7.6 mg/dL (8.5-10.1) Total Bilirubin 0.3 mg/dL (0.2-1.0) Aspartate Amino Transf (AST/SGOT) 123 U/L (15-37) Alanine Aminotransferase (ALT/SGPT) 191 U/L (16-63) Alkaline Phosphatase 105 U/L (46-116) Total Protein 5.6 g/dL (6.4-8.2) Albumin 1.9 g/dL (3.4-5.0) Albumin/Globulin Ratio 0.5 (1.0-1.7) Microbiology 04/20/18 Blood Culture - Preliminary, Resulted NO GROWTH AFTER 1 DAY Medications Current Medications Sodium Chloride 1,000 ml @ 2,190 mls/hr Q28M IV Last administered on at 19:39; Start 04/20/18 at 18:09; Stop 04/20/18 at 19:06; Status DC Piperacillin Sod/ Tazobactam Sod 4.5 gm/Sodium Chloride 100 ml @ 200 mls/hr 1X ONCE IV Last administered on 04/20/18at 18:58; Start 04/20/18 at 18:15; Stop 04/20/18 at 18:44; Status DC Vancomycin HCl (Vanco Per Pharmacy) 1 each 1X ONCE MC ; Start 04/20/18 at 18:15 ; Stop 04/20/18 at 18:16; Status Cancel Morphine Sulfate (Morphine Sulfate) 4 mg PRN Q15MIN PRN IV/SQ PAIN GREATER THAN 3/10; Start 04/20/18 at 18:15; Stop 04/21/18 at 18:14; Status DC Vancomycin HCl 1.5 gm/Sodium Chloride 500 ml @ 250 mls/hr 1X ONCE IV Last administered on 04/20/18at 19:35; Start 04/20/18 at 18:30; Stop 04/20/18 at 20:29 ; Status DC Insulin Human Regular (HumuLIN R VIAL) 8 unit 1X ONCE SQ Last administered on 04/20/18at 19:33; Start 04/20/18 at 19:15; Stop 04/20/18 at 19:29; Status DC Insulin Human Lispro (HumaLOG) 0-5 UNITS TIDWMEALS SQ Last administered on 04/22at 12:09; Start 04/21/18 at 08:00 Dextrose (Dextrose 50%-Water Syringe) 12.5 gm PRN Q15MIN PRN IV SEE COMMENTS; Start 04/20/18 at 19:45 Ondansetron HCl (Zofran) 4 mg PRN Q8HRS PRN IV NAUSEA/VOMITING; Start 04/20/18 at 20:00; Stop 04/21/18 at 19:59; Status DC Morphine Sulfate (Morphine Sulfate) 4 mg PRN Q2HR PRN IV PAIN Last administered on 04/21/18at 07:29; Start 04/20/18 at 20:00; Stop 04/21/18 at 19:59 ; Status DC Sodium Chloride 1,000 ml @ 125 mls/hr 1X ONCE IV ; Start 04/20/18 at 20:00; Stop 04/21/18 at 03:59; Status DC Sodium Chloride 1,000 ml @ 75 mls/hr [id number] IV Last administered on at 13:40; Start 04/20/18 at 21:30 Insulin Human Lispro (HumaLOG) 5 units 1X ONCE SQ Last administered on at 21:57; Start 04/20/18 at 21:30; Stop 04/20/18 at 21:31; Status DC Sodium Chloride 1,000 ml @ 1,000 mls/hr 1X ONCE IV Last administered on at 02:01; Start 04/21/18 at 02:00; Stop 04/21/18 at 02:59; Status DC Norepinephrine Bitartrate 250 ml @ 1.875 mls/ hr CONT PRN IV SEE I/O RECORD Last administered on 04/21/18at 02:27; Start 04/21/18 at 02:00 Piperacillin Sod/ Tazobactam Sod 3.375 gm/Sodium Chloride 50 ml @ 100 mls/hr Q6HRS IV Last administered on 04/22/18at 12:04; Start 04/21/18 at 08:00 Micafungin Sodium 100 mg/Dextrose 100 ml @ 100 mls/hr Q24H IV Last administered on 04/22/18at 07:51; Start 04/21/18 at 08:00 Vancomycin HCl (Vanco Per Pharmacy) 1 each PRN DAILY PRN MC SEE COMMENTS Last administered on 04/22/18at 12:35; Start 04/21/18 at 09:15 Vancomycin HCl 1 gm/Sodium Chloride 250 ml @ 250 mls/hr Q24H IV Last administered on 04/21/18at 20:03; Start 04/21/18 at 19:30 Vancomycin HCl (Vancomycin Trough Level) 1 each 1X ONCE MC ; Start 04/22/18 at 19:00; Stop 04/22/18 at 19:01 Aspirin (Ecotrin) 81 mg DAILYWBKFT PO Last administered on 04/22/18at 07:51; Start 04/21/18 at 10:00 Atorvastatin Calcium (Lipitor) 40 mg QHS PO ; Start 04/21/18 at 21:00 Lidocaine/Sodium Bicarbonate (Buffered Lidocaine 1%) 3 ml STK-MED ONCE .ROUTE ; Start 04/21/18 at 10:17; Stop 04/21/18 at 10:18; Status DC Pantoprazole Sodium (PROTONIX VIAL for IV PUSH) 40 mg DAILYAC IVP Last administered on 04/22/18at 07:51; Start 04/21/18 at 11:00; Stop 04/22/18 at 12:39 ; Status DC Midazolam HCl (Versed) 2 mg STK-MED ONCE .ROUTE ; Start 04/21/18 at 10:53; Stop 04/21/18 at 10:55; Status DC Fentanyl Citrate (Fentanyl 2ml Vial) 100 mcg STK-MED ONCE .ROUTE ; Start at 10:53; Stop 04/21/18 at 10:56; Status DC Lidocaine/Sodium Bicarbonate (Buffered Lidocaine 1%) 3 ml 1X ONCE IJ Last administered on 04/21/18at 11:37; Start 04/21/18 at 11:00; Stop 04/21/18 at 11:02 ; Status DC Midazolam HCl (Versed) 2 mg 1X ONCE IV Last administered on 04/21/18at 11:37; Start 04/21/18 at 11:00; Stop 04/21/18 at 11:02; Status DC Fentanyl Citrate (Fentanyl 2ml Vial) 100 mcg 1X ONCE IV Last administered on at 11:37; Start 04/21/18 at 11:00; Stop 04/21/18 at 11:02; Status DC Insulin Human Lispro (HumaLOG) 0-7 UNITS TIDWMEALS SQ ; Start 04/21/18 at 17:00 ; Status UNV Dextrose (Dextrose 50%-Water Syringe) 12.5 gm PRN Q15MIN PRN IV SEE COMMENTS; Start 04/21/18 at 16:30; Status UNV Amino Acids/ Glycerin/ Electrolytes 1,000 ml @ 80 mls/hr [id number] IV Last administered on 04/22/18at 06:58; Start 04/21/18 at 17:00 Saliva Substitute (Biotene Moisturizing Mouth) 2 spray PRN Q15MIN PRN PO DRY MOUTH; Start 04/21/18 at 16:30 Sodium Chloride 1,000 ml @ 1,000 mls/hr 1X ONCE IV Last administered on at 16:30; Start 04/21/18 at 16:30; Stop 04/21/18 at 17:29; Status DC Morphine Sulfate (Morphine Sulfate) 4 mg PRN Q2HR PRN IV SEVERE PAIN Last administered on 04/21/18at 21:35; Start 04/21/18 at 21:30 Insulin Glargine (Lantus) 8 units DAILY10 SQ Last administered on 04/22/18at 10: 34; Start 04/22/18 at 10:00 Pantoprazole Sodium (Protonix) 40 mg DAILYAC PO ; Start 04/23/18 at 07:30 Active Scripts Active Lipitor (Atorvastatin Calcium) 40 Mg Tablet 1 Tab PO QHS Aspirin Ec (Aspirin) 81 Mg Tablet.dr 81 Mg PO DAILYWBKFT Brilinta (Ticagrelor) 90 Mg Tablet 90 Mg PO BID Reported Soma (Carisoprodol) 350 Mg Tablet 1 Tab PO BID Omeprazole 40 Mg Capsule.dr 1 Cap PO DAILY Symbicort 80-4.5 Mcg Inhaler (Budesonide/Formoterol Fumarate) 10.2 Gm Hfa.aer.ad 1 Puff IH BID Metformin Hcl 500 Mg Tablet 500 Mg PO BIDWMEALS Amaryl (Glimepiride) 4 Mg Tablet 1 Tab PO DAILY Amlodipine Besylate 5 Mg Tablet 5 Mg PO DAILY Carvedilol (Carvedilol) 12.5 Mg Tablet 1 Tab PO BID Colestipol Hcl 1 Gm Tablet 2 Gm PO 1X Magnesium Oxide 400 Mg Tablet 250 Tab PO DAILY Vitamin D3 (Cholecalciferol (Vitamin D3)) 1,000 Unit Tablet 2,000 Tab PO DAILY Vitals/I & O Vital Sign - Last 24 Hours 04/21/18 04/21/18 04/21/18 04/21/18 14:58 15:00 16:00 16:00 Pulse 56 58 Resp 22 22 B/P (MAP) 100/62 (75) 106/62 (77) Pulse Ox 96 95 98 O2 Delivery Room Air Room Air Room Air Room Air O2 Flow Rate 2.0 04/21/18 04/21/18 04/21/18 04/21/18 17:00 18:08 19:00 20:00 Temp 98.5 98.3 98.5 98.3 Pulse 70 79 71 75 Resp 22 27 25 B/P (MAP) 110/60 (77) 103/58 (73) 104/61 (75) 102/53 (69) Pulse Ox 96 96 95 96 O2 Delivery Room Air Room Air Room Air Room Air O2 Flow Rate 2.0 04/21/18 04/21/18 04/21/18 04/21/18 20:00 21:00 21:35 22:00 Pulse 98 78 Resp 38 29 23 B/P (MAP) 90/43 (59) 97/57 (70) Pulse Ox 95 23 96 O2 Delivery Room Air Room Air Room Air Room Air 04/21/18 04/22/18 04/22/18 04/22/18 23:00 00:00 00:00 01:00 Temp 98.2 98.2 Pulse 72 74 71 Resp 21 22 26 B/P (MAP) 97/54 (68) 90/40 (57) 99/53 (68) Pulse Ox 92 95 94 O2 Delivery Room Air Room Air Room Air Room Air 04/22/18 04/22/18 04/22/18 04/22/18 02:00 03:00 03:30 04:00 Temp 98.1 98.1 Pulse 61 68 61 Resp 21 22 21 B/P (MAP) 103/52 (69) 88/47 (61) 107/58 (74) Pulse Ox 94 94 94 O2 Delivery Room Air Room Air Room Air Room Air 04/22/18 04/22/18 04/22/18 04/22/18 05:00 06:00 07:00 08:00 Pulse 70 69 63 Resp 23 24 20 B/P (MAP) 109/59 (76) 91/59 (70) 100/59 (73) Pulse Ox 94 93 95 O2 Delivery Room Air Room Air Room Air Room Air 04/22/18 04/22/18 08:00 12:00 Temp 97.9 97.7 97.9 97.7 Pulse 66 73 Resp 18 18 B/P (MAP) 106/58 (74) 106/55 (72) Pulse Ox 96 95 O2 Delivery Room Air Room Air Intake and Output 04/21/18 04/21/18 04/22/18 15:01 23:01 07:01 Intake Total 1422 ml 1905 ml Output Total 2 ml 45 ml Balance -2 ml 1422 ml 1860 ml Nutrition Consultation Dietary Evaluation: Recommendations by RD: PPN/TPN Comments: REC PPN initiation for short-term nutrition needs while pt remains NPO Goal diet - regular, honor food preferences Expected Outcomes/Goals: Initiation of nutrition within 24-48 hrs Interpretation of weight loss: >5% in 1 month Malnutrition Findings: Food and Nutrition Intake (Mod: <75% est energy req 7days Weight Status: Appropriate ANITA ALVARADO MD Apr 22, 2018 14:39
[2018-04-22] MEDS: CLOPIDOGREL BISULFATE 75 MG TABLET PO SCH (17:11)
--- NOTE | 2018-04-22 18:27 | PDOC ---
Provider Note Provider Note S: No new events. Doing well. No current surgical plans. O: VSS Normal cardiac exam. Labs reviewed. Meds reviewed. Impression: 1. CAD s/p PCI less than 3mons ago to LAD 2. ABd abcess. Plans 1. Recommend restarting plavix until 1 week prior to planned surgery. Discussed with surgical team. 2. Supportive care for now. Discussed with patient and family. Ok to DC from CV standpoint. ISMAEL POSADAS MD Apr 22, 2018 18:27
[2018-04-22 19:51] LABS: VANC TR 5.9 mcg/mL (10.0-20.0)
--- NOTE | 2018-04-22 20:17 | NUR ---
RN left a message for Dr. Negrete on you call md regarding getting something to help the patient sleep. Dr. Saravia called back at 2024 and orders were received.
--- NOTE | 2018-04-22 20:19 | NUR ---
Pharmacy Vancomycin Dosing Note S:Consulted to monitor and dose vancomycin started 04/21/18. O:EDITH SELBY is a 82 year old M with Sepsis Abdominal abscess, perforated viscus . Height: 5 feet, 10 inches Weight: 61.513056 kg [place] Body Weight: 73.00 Adjusted Body Weight: 68.20 Dosing Weight: Actual Other Antibiotics: zosyn micafungin LABS: Last BUN: 17 Last Creatinine: 0.9 Creatinine Clearance: 51 mL/min Last WBC: 10.8 Last Procalcitonin: 0.15 Tmax (past 24 hours): 98.2 Microbiology: 04/20 Blood: no growth I/O: 3327/47 (2 voids) Drug Levels: Last Trough level: 5.9 on 04/22/18 at 1900 Last dose given 04/21/18 at 2003 Vancomycin Dosing: Loading Dose: 1500 mg x1 Dosing Weight: Actual Target Trough: 15-20 A: Based on: TROUGH P: 1. Begin Vancomycin 750 mg IV q12h 2. Follow up Trough level on 04/24/18 at 0830 3. Pharmacy will continue to monitor, follow and adjust therapy as needed. JOSÉ ANTONIO MONTES [facility], 04/22/18 2019
[2018-04-22] MEDS: ATORVASTATIN CALCIUM 40 MG TABLET. PO SCH (20:35)
[2018-04-22] MEDS: VANCOMYCIN 750 MG in IV NORMAL SALINE 250ML 250 ML IV SCH (20:35)
--- NOTE | 2018-04-22 20:45 | NUR ---
Patients called concerned about advancing diet and the patient having a hamburger and chips for dinner. RN communicated that there was an order to advance diet as tolerated and the patient tolerated the dinner well.
[2018-04-22] MEDS ORDERED: ZOLPIDEM 5 MG TABLET. PO PRN (21:00)
[2018-04-22] MEDS ORDERED: INSULIN LISPRO 300 UNITS/3 ML INSULN.PEN. SQ ONE (23:00)
[2018-04-23] MEDS: IV NORMAL SALINE 1000ML BAG 1,000 ML IV SCH ×2 (02:50→16:10)
[2018-04-23 04:00] VITALS: BP 118/76
[2018-04-23 05:25] LABS: BASO % 0 % (0-3); EOS # 0.2 x10^3/uL (0.0-0.7); EOS % 1 % (0-3); HEMATOCRIT 33.1 % (39.0-53.0); LYMPH # 1.3 x10^3/uL (1.0-4.8); LYMPH % 10 % (24-48); MEAN CORPUSCULAR HEMOGLOBIN 29 pg (25-35); MEAN CORPUSCULAR HGB CONC 33 g/dL (31-37); MEAN CORPUSCULAR VOLUME 89 fL (79-100); MONO # 0.7 x10^3/uL (0.0-1.1); MONO % 6 % (0-9); NEUT # 10.7 x10^3uL (1.8-7.7); NEUT % 83 % (31-73); PLATELET COUNT 278 x10^3/uL (140-400); RED BLOOD COUNT 3.73 x10^6/uL (4.30-5.70); RED CELL DISTRIBUTION WIDTH 13.7 % (11.5-14.5); WHITE BLOOD COUNT 12.9 x10^3/uL (4.0-11.0)
[2018-04-23 06:11] LABS: ALBUMIN 1.9 g/dL (3.4-5.0); ALBUMIN/GLOBULIN RATIO 0.5 (1.0-1.7); CALCIUM 7.9 mg/dL (8.5-10.1); CREATININE 0.9 mg/dL (0.7-1.3); POTASSIUM 3.7 mmol/L (3.5-5.1); TOTAL BILIRUBIN 0.3 mg/dL (0.2-1.0); TOTAL PROTEIN 5.8 g/dL (6.4-8.2)
[2018-04-23] MEDS: PIPERACILLIN/TAZOBACTAM 3.375 GM in IV NORMAL SALINE 50ML 50 ML IV SCH ×4 (06:12→23:46)
[2018-04-23 07:00] VITALS: BP 133/73
[2018-04-23] MEDS: PANTOPRAZOLE 40 MG TABLET.DR. PO SCH (07:15)
[2018-04-23] MEDS: AMINO AC 3%/ELECTROLYTE/GLYCER 1,000 ML IV SCH (07:16)
[2018-04-23] MEDS: INSULIN LISPRO 300 UNITS/3 ML INSULN.PEN. SQ SCH ×3 (08:00→17:24)
[2018-04-23] MEDS: MICAFUNGIN 100 MG in IV DEXTROSE 5% 100ML 100 ML IV SCH (08:12)
[2018-04-23] MEDS: ASPIRIN ENTERIC COATED 81 MG TABLET.DR. PO SCH (08:13)
[2018-04-23] MEDS: CLOPIDOGREL BISULFATE 75 MG TABLET PO SCH (08:13)
--- NOTE | 2018-04-23 08:24 | PDOC ---
Infectious Disease Note Subjective Subjective Feeling better. Occ cough but has had on/off for 2 weeks + BM today No F/C/S/SOA/Rash/dysuria/N/V/D Vital Sign Vital Signs Vital Signs Date Time Temp Pulse Resp B/P (MAP) Pulse Ox O2 Delivery O2 Flow Rate FiO2 04/23/18 04:00 98.7 82 18 118/76 (90) 95 Room Air 98.7 Physical Exam PHYSICAL EXAM CONSTITUTIONAL: He is alert, cooperative. He is in no acute distress. He is pleasant. in bed HEENT: Pupils equal and reactive. Oral cavity, pharynx is clear. NECK: Supple, no JVD. LUNGS: Clear to auscultation. HEART: S1, S2. ABDOMEN: Soft. JEREMY in place with some purulent material EXTREMITIES: No clubbing, cyanosis or gross edema. SKIN: Warm to touch without signs of rash. NEUROLOGIC: He is nonfocal and appropriate. PSYCHIATRIC: Affect is pleasant. ACCESS: IV sites are clean. Labs Lab Laboratory Tests Test 04/22/18 12:01 04/22/18 16:41 04/22/18 19:00 04/22/18 22:13 Glucose (Fingerstick) 241 mg/dL (70-99) 233 mg/dL (70-99) 255 mg/dL (70-99) Vancomycin Level Trough 5.9 mcg/mL (10.0-20.0) Vancomycin Last Dose Date 04/21/18 Vancomycin Last Dose Time 1929 Test 04/23/18 04:10 04/23/18 08:08 White Blood Count 12.9 x10^3/uL (4.0-11.0) Red Blood Count 3.73 x10^6/uL (4.30-5.70) Hemoglobin 11.0 g/dL (13.0-17.5) Hematocrit 33.1 % (39.0-53.0) Mean Corpuscular Volume 89 fL (79-100) Mean Corpuscular Hemoglobin 29 pg (25-35) Mean Corpuscular Hemoglobin Concent 33 g/dL (31-37) Red Cell Distribution Width 13.7 % (11.5-14.5) Platelet Count 278 x10^3/uL (140-400) Neutrophils (%) (Auto) 83 % (31-73) Lymphocytes (%) (Auto) 10 % (24-48) Monocytes (%) (Auto) 6 % (0-9) Eosinophils (%) (Auto) 1 % (0-3) Basophils (%) (Auto) 0 % (0-3) Neutrophils # (Auto) 10.7 x10^3uL (1.8-7.7) Lymphocytes # (Auto) 1.3 x10^3/uL (1.0-4.8) Monocytes # (Auto) 0.7 x10^3/uL (0.0-1.1) Eosinophils # (Auto) 0.2 x10^3/uL (0.0-0.7) Basophils # (Auto) 0.0 x10^3/uL (0.0-0.2) Sodium Level 137 mmol/L (136-145) Potassium Level 3.7 mmol/L (3.5-5.1) Chloride Level 104 mmol/L (98-107) Carbon Dioxide Level 25 mmol/L (21-32) Anion Gap 8 (6-14) Blood Urea Nitrogen 18 mg/dL (8-26) Creatinine 0.9 mg/dL (0.7-1.3) Estimated GFR (Cockcroft-Gault) 81.0 BUN/Creatinine Ratio 20 (6-20) Glucose Level 253 mg/dL (70-99) Calcium Level 7.9 mg/dL (8.5-10.1) Total Bilirubin 0.3 mg/dL (0.2-1.0) Aspartate Amino Transf (AST/SGOT) 60 U/L (15-37) Alanine Aminotransferase (ALT/SGPT) 135 U/L (16-63) Alkaline Phosphatase 94 U/L (46-116) Total Protein 5.8 g/dL (6.4-8.2) Albumin 1.9 g/dL (3.4-5.0) Albumin/Globulin Ratio 0.5 (1.0-1.7) Glucose (Fingerstick) 104 mg/dL (70-99) Micro Microbiology 04/20/18 Blood Culture - Preliminary, Resulted NO GROWTH AFTER 1 DAY Objective Assessment Sepsis - POA Off Levophed now. C-diff neg/MRSA neg Leukocytosis - mild increase but all parameters up - could have mild ileus also but just had a BM which may help Perf Viscous Abd abscesses - S/p IR 04/21 gram stain with GNR and GPR Transaminitis - improved DM Plan Plan of Care Cont Vanc/ Zosyn and Micafungin F/u labs in am and cults D/w daughter AUNG CASTRO MD Apr 23, 2018 08:24
[2018-04-23] MEDS: VANCOMYCIN 750 MG in IV NORMAL SALINE 250ML 250 ML IV SCH ×2 (09:34→20:51)
[2018-04-23] MEDS: INSULIN GLARGINE 300 UNITS/3 ML INSULN.PEN. SQ SCH (10:13)
--- NOTE | 2018-04-23 10:57 | PDOC ---
PROGRESS NOTES Chief Complaint Chief Complaint 1. Acute abdominal pain, sepsis POA, with perforated bowel, diverticula, JEREMY in place with some purulent material POD # 3 CT-guided abdominal abscess drain 2. abdominal abscesses 3, diabetes 2, hyperglycemia, CONTROL fair, lantus added 8 units hs sq 4. CAD post stent 2018 5. severe malnutrition, POA History of Present Illness History of Present Illness cont broad abx drain working well, fluid looks less dark, emptyed x3 overnight, JEREMY in place with some purulent material pain much better, up to chair gen surg and GI and ID following better glucose control needed, on SSI, add lantus Vitals Vitals Vital Signs Date Time Temp Pulse Resp B/P (MAP) Pulse Ox O2 Delivery O2 Flow Rate FiO2 04/23/18 07:00 97.9 94 16 133/73 (93) 100 Room Air 97.9 Physical Exam Physical Exam CONSTITUTIONAL: He is alert, cooperative. He is in no acute distress. He is pleasant. in bed HEENT: Pupils equal and reactive. Oral cavity, pharynx is clear. NECK: Supple, no JVD. LUNGS: Clear to auscultation. HEART: S1, S2. ABDOMEN: Soft. JEREMY in place with some purulent material EXTREMITIES: No clubbing, cyanosis or gross edema. SKIN: Warm to touch without signs of rash. NEUROLOGIC: He is nonfocal and appropriate. PSYCHIATRIC: Affect is pleasant. ACCESS: IV sites are clean. General: Alert, Oriented X3, Cooperative, No acute distress, mild distress Heart: Regular rate (SR no ectopies), Normal S1, Normal S2, No murmurs, Other ( 2/6 systolic murmur to LLS border) Lungs: Clear Abdomen: Soft, No tenderness, Other (drain with purulent discharge) Extremities: No clubbing, No cyanosis, No edema, No tenderness/swelling Skin: No breakdown, No significant lesion Labs LABS Sedation: Conscious sedation was administered with a total intraprocedural [id number] time of 12 minutes. The patient was monitored by a qualified independent observer throughout the time of sedation. Please refer to the medical record for exact doses of medications utilized to achieve moderate sedation. Antibiotics: None Sterility: The procedure was performed in its entirety using appropriate elements of sterile technique. Consent: The procedure was explained in its entirety to the patient or the patients designated sales representative health insurance by a member of the treatment team, including a discussion of the risks, benefits and commonly accepted alternatives to the procedure, as well as the expected consequences of no therapy whatsoever. Discussion of the risks included, but was not limited to, those that are most frequent and those that are rare but possibly severe or life-threatening, as well as the possibility of unforeseen complications. Technique and Findings: Following informed consent, the patient was prepped and draped in usual sterile fashion. Preliminary CT scan of the area of interest was performed. 1% lidocaine was used to achieve local anesthesia. A small dermatotomy was made. Under periodic CT surveillance, an 18-gauge needle was advanced into the abscess cavity and 20 cc of rosi pus was aspirated and sent for microbiologic analysis. The needle was exchanged over wire for a 12 Polish pigtail drainage catheter which was sutured to the skin and placed to bulb suction. Complications: No immediate Impression: 1. CT-guided abdominal abscess drain placement as described Laboratory Tests Test 04/22/18 12:01 04/22/18 16:41 04/22/18 19:00 04/22/18 22:13 Glucose (Fingerstick) 241 mg/dL (70-99) 233 mg/dL (70-99) 255 mg/dL (70-99) Vancomycin Level Trough 5.9 mcg/mL (10.0-20.0) Vancomycin Last Dose Date 04/21/18 Vancomycin Last Dose Time 1930 Test 04/23/18 04:10 04/23/18 08:08 White Blood Count 12.9 x10^3/uL (4.0-11.0) Red Blood Count 3.73 x10^6/uL (4.30-5.70) Hemoglobin 11.0 g/dL (13.0-17.5) Hematocrit 33.1 % (39.0-53.0) Mean Corpuscular Volume 89 fL (79-100) Mean Corpuscular Hemoglobin 29 pg (25-35) Mean Corpuscular Hemoglobin Concent 33 g/dL (31-37) Red Cell Distribution Width 13.7 % (11.5-14.5) Platelet Count 278 x10^3/uL (140-400) Neutrophils (%) (Auto) 83 % (31-73) Lymphocytes (%) (Auto) 10 % (24-48) Monocytes (%) (Auto) 6 % (0-9) Eosinophils (%) (Auto) 1 % (0-3) Basophils (%) (Auto) 0 % (0-3) Neutrophils # (Auto) 10.7 x10^3uL (1.8-7.7) Lymphocytes # (Auto) 1.3 x10^3/uL (1.0-4.8) Monocytes # (Auto) 0.7 x10^3/uL (0.0-1.1) Eosinophils # (Auto) 0.2 x10^3/uL (0.0-0.7) Basophils # (Auto) 0.0 x10^3/uL (0.0-0.2) Sodium Level 137 mmol/L (136-145) Potassium Level 3.7 mmol/L (3.5-5.1) Chloride Level 104 mmol/L (98-107) Carbon Dioxide Level 25 mmol/L (21-32) Anion Gap 8 (6-14) Blood Urea Nitrogen 18 mg/dL (8-26) Creatinine 0.9 mg/dL (0.7-1.3) Estimated GFR (Cockcroft-Gault) 81.0 BUN/Creatinine Ratio 20 (6-20) Glucose Level 253 mg/dL (70-99) Calcium Level 7.9 mg/dL (8.5-10.1) Total Bilirubin 0.3 mg/dL (0.2-1.0) Aspartate Amino Transf (AST/SGOT) 60 U/L (15-37) Alanine Aminotransferase (ALT/SGPT) 135 U/L (16-63) Alkaline Phosphatase 94 U/L (46-116) Total Protein 5.8 g/dL (6.4-8.2) Albumin 1.9 g/dL (3.4-5.0) Albumin/Globulin Ratio 0.5 (1.0-1.7) Glucose (Fingerstick) 104 mg/dL (70-99) Assessment and Plan Assessmemt and Plan Problems Medical Problems: (1) Abdominal abscess Status: Acute (2) Diverticulosis Status: Acute (3) Hyperglycemia Status: Acute (4) Perforation bowel Status: Acute Comment Review of Relevant I have reviewed the following items mukesh (where applicable) has been applied. Labs Laboratory Tests Test 04/21/18 17:21 04/21/18 21:36 04/22/18 04:20 04/22/18 12:01 Glucose (Fingerstick) 192 mg/dL (70-99) 200 mg/dL (70-99) 241 mg/dL (70-99) White Blood Count 10.8 x10^3/uL (4.0-11.0) Red Blood Count 3.62 x10^6/uL (4.30-5.70) Hemoglobin 10.7 g/dL (13.0-17.5) Hematocrit 32.2 % (39.0-53.0) Mean Corpuscular Volume 89 fL (79-100) Mean Corpuscular Hemoglobin 30 pg (25-35) Mean Corpuscular Hemoglobin Concent 33 g/dL (31-37) Red Cell Distribution Width 14.1 % (11.5-14.5) Platelet Count 285 x10^3/uL (140-400) Neutrophils (%) (Auto) 79 % (31-73) Lymphocytes (%) (Auto) 13 % (24-48) Monocytes (%) (Auto) 7 % (0-9) Eosinophils (%) (Auto) 1 % (0-3) Basophils (%) (Auto) 0 % (0-3) Neutrophils # (Auto) 8.5 x10^3uL (1.8-7.7) Lymphocytes # (Auto) 1.4 x10^3/uL (1.0-4.8) Monocytes # (Auto) 0.7 x10^3/uL (0.0-1.1) Eosinophils # (Auto) 0.1 x10^3/uL (0.0-0.7) Basophils # (Auto) 0.0 x10^3/uL (0.0-0.2) Sodium Level 137 mmol/L (136-145) Potassium Level 3.8 mmol/L (3.5-5.1) Chloride Level 104 mmol/L (98-107) Carbon Dioxide Level 24 mmol/L (21-32) Anion Gap 9 (6-14) Blood Urea Nitrogen 17 mg/dL (8-26) Creatinine 0.9 mg/dL (0.7-1.3) Estimated GFR (Cockcroft-Gault) 81.0 BUN/Creatinine Ratio 19 (6-20) Glucose Level 217 mg/dL (70-99) Calcium Level 7.6 mg/dL (8.5-10.1) Total Bilirubin 0.3 mg/dL (0.2-1.0) Aspartate Amino Transf (AST/SGOT) 123 U/L (15-37) Alanine Aminotransferase (ALT/SGPT) 191 U/L (16-63) Alkaline Phosphatase 105 U/L (46-116) Total Protein 5.6 g/dL (6.4-8.2) Albumin 1.9 g/dL (3.4-5.0) Albumin/Globulin Ratio 0.5 (1.0-1.7) Test 04/22/18 16:41 04/22/18 19:00 04/22/18 22:13 04/23/18 04:10 Glucose (Fingerstick) 233 mg/dL (70-99) 255 mg/dL (70-99) Vancomycin Level Trough 5.9 mcg/mL (10.0-20.0) Vancomycin Last Dose Date 04/21/18 Vancomycin Last Dose Time 1930 White Blood Count 12.9 x10^3/uL (4.0-11.0) Red Blood Count 3.73 x10^6/uL (4.30-5.70) Hemoglobin 11.0 g/dL (13.0-17.5) Hematocrit 33.1 % (39.0-53.0) Mean Corpuscular Volume 89 fL (79-100) Mean Corpuscular Hemoglobin 29 pg (25-35) Mean Corpuscular Hemoglobin Concent 33 g/dL (31-37) Red Cell Distribution Width 13.7 % (11.5-14.5) Platelet Count 278 x10^3/uL (140-400) Neutrophils (%) (Auto) 83 % (31-73) Lymphocytes (%) (Auto) 10 % (24-48) Monocytes (%) (Auto) 6 % (0-9) Eosinophils (%) (Auto) 1 % (0-3) Basophils (%) (Auto) 0 % (0-3) Neutrophils # (Auto) 10.7 x10^3uL (1.8-7.7) Lymphocytes # (Auto) 1.3 x10^3/uL (1.0-4.8) Monocytes # (Auto) 0.7 x10^3/uL (0.0-1.1) Eosinophils # (Auto) 0.2 x10^3/uL (0.0-0.7) Basophils # (Auto) 0.0 x10^3/uL (0.0-0.2) Sodium Level 137 mmol/L (136-145) Potassium Level 3.7 mmol/L (3.5-5.1) Chloride Level 104 mmol/L (98-107) Carbon Dioxide Level 25 mmol/L (21-32) Anion Gap 8 (6-14) Blood Urea Nitrogen 18 mg/dL (8-26) Creatinine 0.9 mg/dL (0.7-1.3) Estimated GFR (Cockcroft-Gault) 81.0 BUN/Creatinine Ratio 20 (6-20) Glucose Level 253 mg/dL (70-99) Calcium Level 7.9 mg/dL (8.5-10.1) Total Bilirubin 0.3 mg/dL (0.2-1.0) Aspartate Amino Transf (AST/SGOT) 60 U/L (15-37) Alanine Aminotransferase (ALT/SGPT) 135 U/L (16-63) Alkaline Phosphatase 94 U/L (46-116) Total Protein 5.8 g/dL (6.4-8.2) Albumin 1.9 g/dL (3.4-5.0) Albumin/Globulin Ratio 0.5 (1.0-1.7) Test 04/23/18 08:08 Glucose (Fingerstick) 104 mg/dL (70-99) Laboratory Tests Test 04/22/18 12:01 04/22/18 16:41 04/22/18 19:00 04/22/18 22:13 Glucose (Fingerstick) 241 mg/dL (70-99) 233 mg/dL (70-99) 255 mg/dL (70-99) Vancomycin Level Trough 5.9 mcg/mL (10.0-20.0) Vancomycin Last Dose Date 04/21/18 Vancomycin Last Dose Time 1929 Test 04/23/18 04:10 04/23/18 08:08 White Blood Count 12.9 x10^3/uL (4.0-11.0) Red Blood Count 3.73 x10^6/uL (4.30-5.70) Hemoglobin 11.0 g/dL (13.0-17.5) Hematocrit 33.1 % (39.0-53.0) Mean Corpuscular Volume 89 fL (79-100) Mean Corpuscular Hemoglobin 29 pg (25-35) Mean Corpuscular Hemoglobin Concent 33 g/dL (31-37) Red Cell Distribution Width 13.7 % (11.5-14.5) Platelet Count 278 x10^3/uL (140-400) Neutrophils (%) (Auto) 83 % (31-73) Lymphocytes (%) (Auto) 10 % (24-48) Monocytes (%) (Auto) 6 % (0-9) Eosinophils (%) (Auto) 1 % (0-3) Basophils (%) (Auto) 0 % (0-3) Neutrophils # (Auto) 10.7 x10^3uL (1.8-7.7) Lymphocytes # (Auto) 1.3 x10^3/uL (1.0-4.8) Monocytes # (Auto) 0.7 x10^3/uL (0.0-1.1) Eosinophils # (Auto) 0.2 x10^3/uL (0.0-0.7) Basophils # (Auto) 0.0 x10^3/uL (0.0-0.2) Sodium Level 137 mmol/L (136-145) Potassium Level 3.7 mmol/L (3.5-5.1) Chloride Level 104 mmol/L (98-107) Carbon Dioxide Level 25 mmol/L (21-32) Anion Gap 8 (6-14) Blood Urea Nitrogen 18 mg/dL (8-26) Creatinine 0.9 mg/dL (0.7-1.3) Estimated GFR (Cockcroft-Gault) 81.0 BUN/Creatinine Ratio 20 (6-20) Glucose Level 253 mg/dL (70-99) Calcium Level 7.9 mg/dL (8.5-10.1) Total Bilirubin 0.3 mg/dL (0.2-1.0) Aspartate Amino Transf (AST/SGOT) 60 U/L (15-37) Alanine Aminotransferase (ALT/SGPT) 135 U/L (16-63) Alkaline Phosphatase 94 U/L (46-116) Total Protein 5.8 g/dL (6.4-8.2) Albumin 1.9 g/dL (3.4-5.0) Albumin/Globulin Ratio 0.5 (1.0-1.7) Glucose (Fingerstick) 104 mg/dL (70-99) Microbiology 04/20/18 Blood Culture - Preliminary, Resulted NO GROWTH AFTER 2 DAYS 04/21/18 Anaerobic/Aerobic Culture, Resulted Pending 04/21/18 Anaerobic Culture Result 1 (AMBROCIO), Resulted Pending 04/21/18 Aerobic Culture, Resulted Pending 04/21/18 Aerobic Culture Result 1 (AMBROCIO), Resulted Pending 04/21/18 Gram Stain - Final, Resulted 04/21/18 Gram Stain Result 1 (AMBROCIO) - Final, Resulted 04/21/18 Gram Stain Result 2 (AMBROCIO) - Final, Resulted 04/21/18 Gram Stain Result 3 (AMBROCIO) - Final, Resulted 04/21/18 Gram Stain Result 4 (AMBROCIO) - Final, Resulted Medications Current Medications Sodium Chloride 1,000 ml @ 2,190 mls/hr Q28M IV Last administered on at 19:39; Start 04/20/18 at 18:09; Stop 04/20/18 at 19:06; Status DC Piperacillin Sod/ Tazobactam Sod 4.5 gm/Sodium Chloride 100 ml @ 200 mls/hr 1X ONCE IV Last administered on 04/20/18at 18:58; Start 04/20/18 at 18:15; Stop 04/20/18 at 18:44; Status DC Vancomycin HCl (Vanco Per Pharmacy) 1 each 1X ONCE MC ; Start 04/20/18 at 18:15 ; Stop 04/20/18 at 18:16; Status Cancel Morphine Sulfate (Morphine Sulfate) 4 mg PRN Q15MIN PRN IV/SQ PAIN GREATER THAN 3/10; Start 04/20/18 at 18:15; Stop 04/21/18 at 18:14; Status DC Vancomycin HCl 1.5 gm/Sodium Chloride 500 ml @ 250 mls/hr 1X ONCE IV Last administered on 04/20/18at 19:35; Start 04/20/18 at 18:30; Stop 04/20/18 at 20:29 ; Status DC Insulin Human Regular (HumuLIN R VIAL) 8 unit 1X ONCE SQ Last administered on 04/20/18at 19:33; Start 04/20/18 at 19:15; Stop 04/20/18 at 19:29; Status DC Insulin Human Lispro (HumaLOG) 0-5 UNITS TIDWMEALS SQ Last administered on 04/22at 17:16; Start 04/21/18 at 08:00 Dextrose (Dextrose 50%-Water Syringe) 12.5 gm PRN Q15MIN PRN IV SEE COMMENTS; Start 04/20/18 at 19:45 Ondansetron HCl (Zofran) 4 mg PRN Q8HRS PRN IV NAUSEA/VOMITING; Start 04/20/18 at 20:00; Stop 04/21/18 at 19:59; Status DC Morphine Sulfate (Morphine Sulfate) 4 mg PRN Q2HR PRN IV PAIN Last administered on 04/21/18at 07:29; Start 04/20/18 at 20:00; Stop 04/21/18 at 19:59 ; Status DC Sodium Chloride 1,000 ml @ 125 mls/hr 1X ONCE IV ; Start 04/20/18 at 20:00; Stop 04/21/18 at 03:59; Status DC Sodium Chloride 1,000 ml @ 75 mls/hr [id number] IV Last administered on at 07:00; Start 04/20/18 at 21:30 Insulin Human Lispro (HumaLOG) 5 units 1X ONCE SQ Last administered on at 21:57; Start 04/20/18 at 21:30; Stop 04/20/18 at 21:31; Status DC Sodium Chloride 1,000 ml @ 1,000 mls/hr 1X ONCE IV Last administered on at 02:01; Start 04/21/18 at 02:00; Stop 04/21/18 at 02:59; Status DC Norepinephrine Bitartrate 250 ml @ 1.875 mls/ hr CONT PRN IV SEE I/O RECORD Last administered on 04/21/18at 02:27; Start 04/21/18 at 02:00 Piperacillin Sod/ Tazobactam Sod 3.375 gm/Sodium Chloride 50 ml @ 100 mls/hr Q6HRS IV Last administered on 04/23/18at 06:12; Start 04/21/18 at 08:00 Micafungin Sodium 100 mg/Dextrose 100 ml @ 100 mls/hr Q24H IV Last administered on 04/23/18at 08:12; Start 04/21/18 at 08:00 Vancomycin HCl (Vanco Per Pharmacy) 1 each PRN DAILY PRN MC SEE COMMENTS Last administered on 04/22/18at 20:18; Start 04/21/18 at 09:15 Vancomycin HCl 1 gm/Sodium Chloride 250 ml @ 250 mls/hr Q24H IV Last administered on 04/21/18at 20:03; Start 04/21/18 at 19:30; Stop 04/22/18 at 20:16 ; Status DC Vancomycin HCl (Vancomycin Trough Level) 1 each 1X ONCE MC ; Start 04/22/18 at 19:00; Stop 04/22/18 at 19:01; Status DC Aspirin (Ecotrin) 81 mg DAILYWBKFT PO Last administered on 04/23/18at 08:13; Start 04/21/18 at 10:00 Atorvastatin Calcium (Lipitor) 40 mg QHS PO Last administered on 04/22/18at 20: 35; Start 04/21/18 at 21:00 Lidocaine/Sodium Bicarbonate (Buffered Lidocaine 1%) 3 ml STK-MED ONCE .ROUTE ; Start 04/21/18 at 10:17; Stop 04/21/18 at 10:18; Status DC Pantoprazole Sodium (PROTONIX VIAL for IV PUSH) 40 mg DAILYAC IVP Last administered on 04/22/18at 07:51; Start 04/21/18 at 11:00; Stop 04/22/18 at 12:39 ; Status DC Midazolam HCl (Versed) 2 mg STK-MED ONCE .ROUTE ; Start 04/21/18 at 10:53; Stop 04/21/18 at 10:55; Status DC Fentanyl Citrate (Fentanyl 2ml Vial) 100 mcg STK-MED ONCE .ROUTE ; Start at 10:53; Stop 04/21/18 at 10:56; Status DC Lidocaine/Sodium Bicarbonate (Buffered Lidocaine 1%) 3 ml 1X ONCE IJ Last administered on 04/21/18at 11:37; Start 04/21/18 at 11:00; Stop 04/21/18 at 11:02 ; Status DC Midazolam HCl (Versed) 2 mg 1X ONCE IV Last administered on 04/21/18at 11:37; Start 04/21/18 at 11:00; Stop 04/21/18 at 11:02; Status DC Fentanyl Citrate (Fentanyl 2ml Vial) 100 mcg 1X ONCE IV Last administered on at 11:37; Start 04/21/18 at 11:00; Stop 04/21/18 at 11:02; Status DC Insulin Human Lispro (HumaLOG) 0-7 UNITS TIDWMEALS SQ ; Start 04/21/18 at 17:00 ; Status UNV Dextrose (Dextrose 50%-Water Syringe) 12.5 gm PRN Q15MIN PRN IV SEE COMMENTS; Start 04/21/18 at 16:30; Status UNV Amino Acids/ Glycerin/ Electrolytes 1,000 ml @ 80 mls/hr [id number] IV Last administered on 04/23/18at 07:16; Start 04/21/18 at 17:00 Saliva Substitute (Biotene Moisturizing Mouth) 2 spray PRN Q15MIN PRN PO DRY MOUTH; Start 04/21/18 at 16:30 Sodium Chloride 1,000 ml @ 1,000 mls/hr 1X ONCE IV Last administered on at 16:30; Start 04/21/18 at 16:30; Stop 04/21/18 at 17:29; Status DC Morphine Sulfate (Morphine Sulfate) 4 mg PRN Q2HR PRN IV SEVERE PAIN Last administered on 04/21/18at 21:35; Start 04/21/18 at 21:30 Insulin Glargine (Lantus) 8 units DAILY10 SQ Last administered on 04/23/18at 10: 13; Start 04/22/18 at 10:00 Pantoprazole Sodium (Protonix) 40 mg DAILYAC PO Last administered on 04/23/18at 07:15; Start 04/23/18 at 07:30 Clopidogrel Bisulfate (Plavix) 75 mg DAILYWBKFT PO Last administered on at 08:13; Start 04/22/18 at 17:00 Vancomycin HCl 750 mg/Sodium Chloride 250 ml @ 250 mls/hr Q12H IV Last administered on 04/23/18at 09:34; Start 04/22/18 at 21:00 Vancomycin HCl (Vancomycin Trough Level) 1 each 1X ONCE MC ; Start 04/24/18 at 08:30; Stop 04/24/18 at 08:31 Zolpidem Tartrate (Ambien) 5 mg PRN QHS PRN PO INSOMNIA Last administered on at 21:28; Start 04/22/18 at 21:00 Insulin Human Lispro (HumaLOG) 2 units 1X ONCE SQ Last administered on at 22:30; Start 04/22/18 at 23:00; Stop 04/22/18 at 23:01; Status DC Active Scripts Active Lipitor (Atorvastatin Calcium) 40 Mg Tablet 1 Tab PO QHS Aspirin Ec (Aspirin) 81 Mg Tablet. 81 Mg PO DAILYWBKFT Brilinta (Ticagrelor) 90 Mg Tablet 90 Mg PO BID Reported Soma (Carisoprodol) 350 Mg Tablet 1 Tab PO BID Omeprazole 40 Mg Capsule.dr 1 Cap PO DAILY Symbicort 80-4.5 Mcg Inhaler (Budesonide/Formoterol Fumarate) 10.2 Gm Hfa.aer.ad 1 Puff IH BID Metformin Hcl 500 Mg Tablet 500 Mg PO BIDWMEALS Amaryl (Glimepiride) 4 Mg Tablet 1 Tab PO DAILY Amlodipine Besylate 5 Mg Tablet 5 Mg PO DAILY Carvedilol (Carvedilol) 12.5 Mg Tablet 1 Tab PO BID Colestipol Hcl 1 Gm Tablet 2 Gm PO 1X Magnesium Oxide 400 Mg Tablet 250 Tab PO DAILY Vitamin D3 (Cholecalciferol (Vitamin D3)) 1,000 Unit Tablet 2,000 Tab PO DAILY Vitals/I & O Vital Sign - Last 24 Hours 04/22/18 04/22/18 04/22/18 04/22/18 12:00 15:00 19:00 20:20 Temp 97.7 98.1 98.4 97.7 98.1 98.4 Pulse 73 71 81 Resp 18 18 18 B/P (MAP) 106/55 (72) 107/58 (74) 105/54 (71) Pulse Ox 95 95 95 O2 Delivery Room Air Room Air Room Air Room Air 04/22/18 04/23/18 04/23/18 23:00 04:00 07:00 Temp 98.9 98.7 97.9 98.9 98.7 97.9 Pulse 79 82 94 Resp 18 18 16 B/P (MAP) 109/56 (73) 118/76 (90) 133/73 (93) Pulse Ox 95 95 100 O2 Delivery Room Air Room Air Room Air Intake and Output 04/22/18 04/22/18 04/23/18 15:01 23:01 07:01 Intake Total 240 ml 600 ml Output Total 30 ml Balance 210 ml 600 ml Nutrition Consultation Dietary Evaluation: Recommendations by RD: PPN/TPN Comments: REC PPN initiation for short-term nutrition needs while pt remains NPO Goal diet - regular, honor food preferences Expected Outcomes/Goals: Initiation of nutrition within 24-48 hrs Interpretation of weight loss: >5% in 1 month Malnutrition Findings: Food and Nutrition Intake (Mod: <75% est energy req 7days Weight Status: Appropriate ASHIA DEVRIES MD Apr 23, 2018 10:57
[2018-04-23 11:00] VITALS: BP 129/70
--- NOTE | 2018-04-23 11:02 | PDOC ---
Subjective: Subjective: Tolerating PO, is having some diarrhea, not much pain. Wonders about going home. Objective: Vital Signs: Vital Signs Date Time Temp Pulse Resp B/P (MAP) Pulse Ox O2 Delivery O2 Flow Rate FiO2 04/23/18 07:00 97.9 94 16 133/73 (93) 100 Room Air 97.9 Labs: Laboratory Tests Test 04/22/18 12:01 04/22/18 16:41 04/22/18 19:00 04/22/18 22:13 Glucose (Fingerstick) 241 mg/dL 233 mg/dL 255 mg/dL Vancomycin Level Trough 5.9 mcg/mL Vancomycin Last Dose Date 04/21/18 Vancomycin Last Dose Time 1930 Test 04/23/18 04:10 04/23/18 08:08 White Blood Count 12.9 x10^3/uL Red Blood Count 3.73 x10^6/uL Hemoglobin 11.0 g/dL Hematocrit 33.1 % Mean Corpuscular Volume 89 fL Mean Corpuscular Hemoglobin 29 pg Mean Corpuscular Hemoglobin Concent 33 g/dL Red Cell Distribution Width 13.7 % Platelet Count 278 x10^3/uL Neutrophils (%) (Auto) 83 % Lymphocytes (%) (Auto) 10 % Monocytes (%) (Auto) 6 % Eosinophils (%) (Auto) 1 % Basophils (%) (Auto) 0 % Neutrophils # (Auto) 10.7 x10^3uL Lymphocytes # (Auto) 1.3 x10^3/uL Monocytes # (Auto) 0.7 x10^3/uL Eosinophils # (Auto) 0.2 x10^3/uL Basophils # (Auto) 0.0 x10^3/uL Sodium Level 137 mmol/L Potassium Level 3.7 mmol/L Chloride Level 104 mmol/L Carbon Dioxide Level 25 mmol/L Anion Gap 8 Blood Urea Nitrogen 18 mg/dL Creatinine 0.9 mg/dL Estimated GFR (Cockcroft-Gault) 81.0 BUN/Creatinine Ratio 20 Glucose Level 253 mg/dL Calcium Level 7.9 mg/dL Total Bilirubin 0.3 mg/dL Aspartate Amino Transf (AST/SGOT) 60 U/L Alanine Aminotransferase (ALT/SGPT) 135 U/L Alkaline Phosphatase 94 U/L Total Protein 5.8 g/dL Albumin 1.9 g/dL Albumin/Globulin Ratio 0.5 Glucose (Fingerstick) 104 mg/dL ANAEROBIC-AEROBIC CULTURE PENDING ANAEROBIC RES 1 PENDING AEROBIC CULT PENDING AEROBIC RES 1 PENDING GRAM STAIN Final Final report GRAM STAIN RES 1 Final Comment Few white blood cells. GRAM STAIN RES 2 Final Comment Moderate gram negative rods. GRAM STAIN RES 3 Final Gram positive rods Few seen GRAM STAIN RES 4 Final Yeast isolated. PE: GEN: NAD, in bed reading newspaper LUNGS: CTAB HEART: RRR ABD: drain purulent, non-tender, on the quiet side, soft NEURO/PSYCH: A & O �3 A/P: Abd abscess s/p drain placement Diarrhea Leukocytosis Anemia - stable Mild transaminitis - better -- Monitor stooling. DC per surgery/ID. EMILY KNIGHT Apr 23, 2018 11:02 MADINA HOLLAND MD Apr 23, 2018 11:15
--- NOTE | 2018-04-23 12:05 | NUR ---
Patients JEREMY drain was flushed with 10cc of NS.
--- NOTE | 2018-04-23 12:06 | PDOC ---
DAYNE NEWBERRY HYGIENE COORDINATOR 04/23/18 1206: SURGICAL PROGRESS NOTE Subjective would like to go home tolerated a hamburger yesterday Vital Signs Vital Signs Date Time Temp Pulse Resp B/P (MAP) Pulse Ox O2 Delivery O2 Flow Rate FiO2 04/23/18 11:00 98.1 79 20 129/70 (89) 96 Room Air 98.1 I&O Intake and Output 04/23/18 07:01 Intake Total 840 ml Output Total 30 ml Balance 810 ml Intake Oral 840 ml Output Urine Total 0 ml Drainage Total 30 ml # Voids 4 General: Alert, Oriented X3, Cooperative, No acute distress Abdomen: Soft, Other (drain purulent ) Labs Laboratory Tests Test 04/21/18 17:21 04/21/18 21:36 04/22/18 04:20 04/22/18 12:01 Glucose (Fingerstick) 192 mg/dL (70-99) 200 mg/dL (70-99) 241 mg/dL (70-99) White Blood Count 10.8 x10^3/uL (4.0-11.0) Red Blood Count 3.62 x10^6/uL (4.30-5.70) Hemoglobin 10.7 g/dL (13.0-17.5) Hematocrit 32.2 % (39.0-53.0) Mean Corpuscular Volume 89 fL (79-100) Mean Corpuscular Hemoglobin 30 pg (25-35) Mean Corpuscular Hemoglobin Concent 33 g/dL (31-37) Red Cell Distribution Width 14.1 % (11.5-14.5) Platelet Count 285 x10^3/uL (140-400) Neutrophils (%) (Auto) 79 % (31-73) Lymphocytes (%) (Auto) 13 % (24-48) Monocytes (%) (Auto) 7 % (0-9) Eosinophils (%) (Auto) 1 % (0-3) Basophils (%) (Auto) 0 % (0-3) Neutrophils # (Auto) 8.5 x10^3uL (1.8-7.7) Lymphocytes # (Auto) 1.4 x10^3/uL (1.0-4.8) Monocytes # (Auto) 0.7 x10^3/uL (0.0-1.1) Eosinophils # (Auto) 0.1 x10^3/uL (0.0-0.7) Basophils # (Auto) 0.0 x10^3/uL (0.0-0.2) Sodium Level 137 mmol/L (136-145) Potassium Level 3.8 mmol/L (3.5-5.1) Chloride Level 104 mmol/L (98-107) Carbon Dioxide Level 24 mmol/L (21-32) Anion Gap 9 (6-14) Blood Urea Nitrogen 17 mg/dL (8-26) Creatinine 0.9 mg/dL (0.7-1.3) Estimated GFR (Cockcroft-Gault) 81.0 BUN/Creatinine Ratio 19 (6-20) Glucose Level 217 mg/dL (70-99) Calcium Level 7.6 mg/dL (8.5-10.1) Total Bilirubin 0.3 mg/dL (0.2-1.0) Aspartate Amino Transf (AST/SGOT) 123 U/L (15-37) Alanine Aminotransferase (ALT/SGPT) 191 U/L (16-63) Alkaline Phosphatase 105 U/L (46-116) Total Protein 5.6 g/dL (6.4-8.2) Albumin 1.9 g/dL (3.4-5.0) Albumin/Globulin Ratio 0.5 (1.0-1.7) Test 04/22/18 16:41 04/22/18 19:00 04/22/18 22:13 04/23/18 04:10 Glucose (Fingerstick) 233 mg/dL (70-99) 255 mg/dL (70-99) Vancomycin Level Trough 5.9 mcg/mL (10.0-20.0) Vancomycin Last Dose Date 04/21/18 Vancomycin Last Dose Time 1930 White Blood Count 12.9 x10^3/uL (4.0-11.0) Red Blood Count 3.73 x10^6/uL (4.30-5.70) Hemoglobin 11.0 g/dL (13.0-17.5) Hematocrit 33.1 % (39.0-53.0) Mean Corpuscular Volume 89 fL (79-100) Mean Corpuscular Hemoglobin 29 pg (25-35) Mean Corpuscular Hemoglobin Concent 33 g/dL (31-37) Red Cell Distribution Width 13.7 % (11.5-14.5) Platelet Count 278 x10^3/uL (140-400) Neutrophils (%) (Auto) 83 % (31-73) Lymphocytes (%) (Auto) 10 % (24-48) Monocytes (%) (Auto) 6 % (0-9) Eosinophils (%) (Auto) 1 % (0-3) Basophils (%) (Auto) 0 % (0-3) Neutrophils # (Auto) 10.7 x10^3uL (1.8-7.7) Lymphocytes # (Auto) 1.3 x10^3/uL (1.0-4.8) Monocytes # (Auto) 0.7 x10^3/uL (0.0-1.1) Eosinophils # (Auto) 0.2 x10^3/uL (0.0-0.7) Basophils # (Auto) 0.0 x10^3/uL (0.0-0.2) Sodium Level 137 mmol/L (136-145) Potassium Level 3.7 mmol/L (3.5-5.1) Chloride Level 104 mmol/L (98-107) Carbon Dioxide Level 25 mmol/L (21-32) Anion Gap 8 (6-14) Blood Urea Nitrogen 18 mg/dL (8-26) Creatinine 0.9 mg/dL (0.7-1.3) Estimated GFR (Cockcroft-Gault) 81.0 BUN/Creatinine Ratio 20 (6-20) Glucose Level 253 mg/dL (70-99) Calcium Level 7.9 mg/dL (8.5-10.1) Total Bilirubin 0.3 mg/dL (0.2-1.0) Aspartate Amino Transf (AST/SGOT) 60 U/L (15-37) Alanine Aminotransferase (ALT/SGPT) 135 U/L (16-63) Alkaline Phosphatase 94 U/L (46-116) Total Protein 5.8 g/dL (6.4-8.2) Albumin 1.9 g/dL (3.4-5.0) Albumin/Globulin Ratio 0.5 (1.0-1.7) Test 04/23/18 08:08 Glucose (Fingerstick) 104 mg/dL (70-99) Laboratory Tests Test 04/22/18 16:41 04/22/18 19:00 04/22/18 22:13 04/23/18 04:10 Glucose (Fingerstick) 233 mg/dL (70-99) 255 mg/dL (70-99) Vancomycin Level Trough 5.9 mcg/mL (10.0-20.0) Vancomycin Last Dose Date 04/21/18 Vancomycin Last Dose Time 1930 White Blood Count 12.9 x10^3/uL (4.0-11.0) Red Blood Count 3.73 x10^6/uL (4.30-5.70) Hemoglobin 11.0 g/dL (13.0-17.5) Hematocrit 33.1 % (39.0-53.0) Mean Corpuscular Volume 89 fL (79-100) Mean Corpuscular Hemoglobin 29 pg (25-35) Mean Corpuscular Hemoglobin Concent 33 g/dL (31-37) Red Cell Distribution Width 13.7 % (11.5-14.5) Platelet Count 278 x10^3/uL (140-400) Neutrophils (%) (Auto) 83 % (31-73) Lymphocytes (%) (Auto) 10 % (24-48) Monocytes (%) (Auto) 6 % (0-9) Eosinophils (%) (Auto) 1 % (0-3) Basophils (%) (Auto) 0 % (0-3) Neutrophils # (Auto) 10.7 x10^3uL (1.8-7.7) Lymphocytes # (Auto) 1.3 x10^3/uL (1.0-4.8) Monocytes # (Auto) 0.7 x10^3/uL (0.0-1.1) Eosinophils # (Auto) 0.2 x10^3/uL (0.0-0.7) Basophils # (Auto) 0.0 x10^3/uL (0.0-0.2) Sodium Level 137 mmol/L (136-145) Potassium Level 3.7 mmol/L (3.5-5.1) Chloride Level 104 mmol/L (98-107) Carbon Dioxide Level 25 mmol/L (21-32) Anion Gap 8 (6-14) Blood Urea Nitrogen 18 mg/dL (8-26) Creatinine 0.9 mg/dL (0.7-1.3) Estimated GFR (Cockcroft-Gault) 81.0 BUN/Creatinine Ratio 20 (6-20) Glucose Level 253 mg/dL (70-99) Calcium Level 7.9 mg/dL (8.5-10.1) Total Bilirubin 0.3 mg/dL (0.2-1.0) Aspartate Amino Transf (AST/SGOT) 60 U/L (15-37) Alanine Aminotransferase (ALT/SGPT) 135 U/L (16-63) Alkaline Phosphatase 94 U/L (46-116) Total Protein 5.8 g/dL (6.4-8.2) Albumin 1.9 g/dL (3.4-5.0) Albumin/Globulin Ratio 0.5 (1.0-1.7) Test 04/23/18 08:08 Glucose (Fingerstick) 104 mg/dL (70-99) Problem List Problems Medical Problems: (1) Abdominal abscess Status: Acute (2) Diverticulosis Status: Acute (3) Hyperglycemia Status: Acute (4) Perforation bowel Status: Acute Assessment/Plan abd abscess continue drain diet as tolerated LUIZA JOHNSON MD 04/23/18 1902: SURGICAL PROGRESS NOTE Assessment/Plan Pt seen and examined. Agree with Ms. Newberry's note Pt feels better, stefany PO well abd soft, drain with some pus OK to work towards d/c f/u in two weeks. DAYNE NEWBERRY APRN Apr 23, 2018 12:06 LUIZA JOHNSON MD Apr 23, 2018 19:02
--- NOTE | 2018-04-23 14:15 | NUR ---
SW following for discharge planning. Discussed with RN, pt is from home with . PT/OT recommending home indp. SW attempted to meet with pt, pt was sleeping. RN advised pt had just now gone to sleep. SW left voicemail for pt's Bridget, requesting a call back. SW will continue to follow.
[2018-04-23] MEDS: VANCOMYCIN PER PHARMACY MC PRN (14:18)
[2018-04-23 15:00] VITALS: BP 130/67
[2018-04-23 19:00] VITALS: BP 118/76
[2018-04-23] MEDS: ATORVASTATIN CALCIUM 40 MG TABLET. PO SCH (20:51)
[2018-04-23] MEDS ORDERED: INSULIN LISPRO 300 UNITS/3 ML INSULN.PEN. SQ ONE (21:00)
[2018-04-23 23:00] VITALS: BP 132/83
[2018-04-24 03:00] VITALS: BP 116/61
[2018-04-24] MEDS: AMINO AC 3%/ELECTROLYTE/GLYCER 1,000 ML IV SCH ×3 (03:38→21:33)
[2018-04-24] MEDS: IV NORMAL SALINE 1000ML BAG 1,000 ML IV SCH (05:30)
[2018-04-24] MEDS: PANTOPRAZOLE 40 MG TABLET.DR. PO SCH (06:01)
[2018-04-24] MEDS: PIPERACILLIN/TAZOBACTAM 3.375 GM in IV NORMAL SALINE 50ML 50 ML IV SCH ×3 (06:01→17:35)
[2018-04-24 07:00] VITALS: BP 138/90
--- NOTE | 2018-04-24 09:08 | PDOC ---
DAYNE NEWBERRY CONCRETE LAYER 04/24/18 0908: SURGICAL PROGRESS NOTE Subjective tolerating diet only pain at drain site Vital Signs Vital Signs Date Time Temp Pulse Resp B/P (MAP) Pulse Ox O2 Delivery O2 Flow Rate FiO2 04/24/18 07:00 98.1 109 16 138/90 (106) 97 Room Air 98.1 I&O Intake and Output 04/24/18 07:01 Intake Total 200 ml Output Total 30 ml Balance 170 ml Intake Oral 200 ml Drainage Total 30 ml # Voids 4 # Bowel Movements 1 General: Alert, Oriented X3, Cooperative, No acute distress Abdomen: Soft, Other (drain purulent ) Labs Laboratory Tests Test 04/22/18 12:01 04/22/18 16:41 04/22/18 19:00 04/22/18 22:13 Glucose (Fingerstick) 241 mg/dL (70-99) 233 mg/dL (70-99) 255 mg/dL (70-99) Vancomycin Level Trough 5.9 mcg/mL (10.0-20.0) Vancomycin Last Dose Date 04/21/18 Vancomycin Last Dose Time 1930 Test 04/23/18 04:10 04/23/18 08:08 04/23/18 12:00 04/23/18 16:56 White Blood Count 12.9 x10^3/uL (4.0-11.0) Red Blood Count 3.73 x10^6/uL (4.30-5.70) Hemoglobin 11.0 g/dL (13.0-17.5) Hematocrit 33.1 % (39.0-53.0) Mean Corpuscular Volume 89 fL (79-100) Mean Corpuscular Hemoglobin 29 pg (25-35) Mean Corpuscular Hemoglobin Concent 33 g/dL (31-37) Red Cell Distribution Width 13.7 % (11.5-14.5) Platelet Count 278 x10^3/uL (140-400) Neutrophils (%) (Auto) 83 % (31-73) Lymphocytes (%) (Auto) 10 % (24-48) Monocytes (%) (Auto) 6 % (0-9) Eosinophils (%) (Auto) 1 % (0-3) Basophils (%) (Auto) 0 % (0-3) Neutrophils # (Auto) 10.7 x10^3uL (1.8-7.7) Lymphocytes # (Auto) 1.3 x10^3/uL (1.0-4.8) Monocytes # (Auto) 0.7 x10^3/uL (0.0-1.1) Eosinophils # (Auto) 0.2 x10^3/uL (0.0-0.7) Basophils # (Auto) 0.0 x10^3/uL (0.0-0.2) Sodium Level 137 mmol/L (136-145) Potassium Level 3.7 mmol/L (3.5-5.1) Chloride Level 104 mmol/L (98-107) Carbon Dioxide Level 25 mmol/L (21-32) Anion Gap 8 (6-14) Blood Urea Nitrogen 18 mg/dL (8-26) Creatinine 0.9 mg/dL (0.7-1.3) Estimated GFR (Cockcroft-Gault) 81.0 BUN/Creatinine Ratio 20 (6-20) Glucose Level 253 mg/dL (70-99) Calcium Level 7.9 mg/dL (8.5-10.1) Total Bilirubin 0.3 mg/dL (0.2-1.0) Aspartate Amino Transf (AST/SGOT) 60 U/L (15-37) Alanine Aminotransferase (ALT/SGPT) 135 U/L (16-63) Alkaline Phosphatase 94 U/L (46-116) Total Protein 5.8 g/dL (6.4-8.2) Albumin 1.9 g/dL (3.4-5.0) Albumin/Globulin Ratio 0.5 (1.0-1.7) Glucose (Fingerstick) 104 mg/dL (70-99) 291 mg/dL (70-99) 229 mg/dL (70-99) Test 04/23/18 20:36 04/24/18 07:55 Glucose (Fingerstick) 328 mg/dL (70-99) 271 mg/dL (70-99) Laboratory Tests Test 04/23/18 12:00 04/23/18 16:56 04/23/18 20:36 04/24/18 07:55 Glucose (Fingerstick) 291 mg/dL (70-99) 229 mg/dL (70-99) 328 mg/dL (70-99) 271 mg/dL (70-99) Problem List Problems Medical Problems: (1) Abdominal abscess Status: Acute (2) Diverticulosis Status: Acute (3) Hyperglycemia Status: Acute (4) Perforation bowel Status: Acute Assessment/Plan continue drain dc when medically appropriate FU in clinic with ASHIA Benítez MD 04/24/18 1053: SURGICAL PROGRESS NOTE Assessment/Plan Agree with Flor assessment and plan ADYNE NEWBERRY APRN Apr 24, 2018 09:08 ASHIA BURNETT MD Apr 24, 2018 10:53
[2018-04-24 09:35] LABS: BASO # 0.1 x10^3/uL (0.0-0.2); BASO % 1 % (0-3); EOS # 0.2 x10^3/uL (0.0-0.7); EOS % 2 % (0-3); HEMATOCRIT 34.7 % (39.0-53.0); HEMOGLOBIN 11.4 g/dL (13.0-17.5); LYMPH # 1.2 x10^3/uL (1.0-4.8); LYMPH % 9 % (24-48); MEAN CORPUSCULAR HEMOGLOBIN 29 pg (25-35); MEAN CORPUSCULAR HGB CONC 33 g/dL (31-37); MEAN CORPUSCULAR VOLUME 88 fL (79-100); MONO # 0.7 x10^3/uL (0.0-1.1); MONO % 5 % (0-9); NEUT # 11.5 x10^3uL (1.8-7.7); NEUT % 84 % (31-73); PLATELET COUNT 327 x10^3/uL (140-400); RED BLOOD COUNT 3.95 x10^6/uL (4.30-5.70); RED CELL DISTRIBUTION WIDTH 13.8 % (11.5-14.5); WHITE BLOOD COUNT 13.7 x10^3/uL (4.0-11.0)
[2018-04-24 09:47] LABS: ALBUMIN 2.2 g/dL (3.4-5.0); ALBUMIN/GLOBULIN RATIO 0.6 (1.0-1.7); CALCIUM 7.9 mg/dL (8.5-10.1); CREATININE 0.9 mg/dL (0.7-1.3); POTASSIUM 3.8 mmol/L (3.5-5.1); TOTAL BILIRUBIN 0.4 mg/dL (0.2-1.0); TOTAL PROTEIN 5.7 g/dL (6.4-8.2); VANC TR 8.6 mcg/mL (10.0-20.0)
[2018-04-24] MEDS: ASPIRIN ENTERIC COATED 81 MG TABLET.DR. PO SCH (09:53)
[2018-04-24] MEDS: CLOPIDOGREL BISULFATE 75 MG TABLET PO SCH (09:53)
[2018-04-24] MEDS: MICAFUNGIN 100 MG in IV DEXTROSE 5% 100ML 100 ML IV SCH (09:54)
--- NOTE | 2018-04-24 09:57 | PDOC ---
PROGRESS NOTES Chief Complaint Chief Complaint impression 1. Acute abdominal pain, sepsis POA, with perforated bowel, diverticula, JEREMY in place with some purulent material POD # 3 CT-guided abdominal abscess drain 2. abdominal abscesses 3, diabetes 2, hyperglycemia, CONTROL poor lantus added 12 units hs sq 4. CAD post stent 2018 5. severe malnutrition, POA 6. wheezing History of Present Illness History of Present Illness cont broad abx drain working well, fluid looks less dark, emptyed x3 overnight, JEREMY in place with some purulent material pain much better, up to chair gen surg and GI and ID following better glucose control needed, on SSI, add lantus Vitals Vitals Vital Signs Date Time Temp Pulse Resp B/P (MAP) Pulse Ox O2 Delivery O2 Flow Rate FiO2 04/24/18 07:00 98.1 109 16 138/90 (106) 97 Room Air 98.1 Physical Exam Physical Exam CONSTITUTIONAL: He is alert, cooperative. He is in no acute distress. He is pleasant. in bed HEENT: Pupils equal and reactive. Oral cavity, pharynx is clear. NECK: Supple, no JVD. LUNGS: Clear to auscultation. HEART: S1, S2. ABDOMEN: Soft. JEREMY in place with some purulent material EXTREMITIES: No clubbing, cyanosis or gross edema. SKIN: Warm to touch without signs of rash. NEUROLOGIC: He is nonfocal and appropriate. PSYCHIATRIC: Affect is pleasant. ACCESS: IV sites are clean. General: Alert, Oriented X3, Cooperative, No acute distress Heart: Regular rate (SR no ectopies), Normal S1, Normal S2, No murmurs, Other ( 2/6 systolic murmur to LLS border) Lungs: Clear, Wheezing Abdomen: Soft, Other (drain purulent ) Extremities: No clubbing, No cyanosis, No edema, No tenderness/swelling Skin: No breakdown, No significant lesion Labs LABS Laboratory Tests Test 04/23/18 12:00 04/23/18 16:56 04/23/18 20:36 04/24/18 07:55 Glucose (Fingerstick) 291 mg/dL (70-99) 229 mg/dL (70-99) 328 mg/dL (70-99) 271 mg/dL (70-99) Test 04/24/18 09:00 White Blood Count 13.7 x10^3/uL (4.0-11.0) Red Blood Count 3.95 x10^6/uL (4.30-5.70) Hemoglobin 11.4 g/dL (13.0-17.5) Hematocrit 34.7 % (39.0-53.0) Mean Corpuscular Volume 88 fL (79-100) Mean Corpuscular Hemoglobin 29 pg (25-35) Mean Corpuscular Hemoglobin Concent 33 g/dL (31-37) Red Cell Distribution Width 13.8 % (11.5-14.5) Platelet Count 327 x10^3/uL (140-400) Neutrophils (%) (Auto) 84 % (31-73) Lymphocytes (%) (Auto) 9 % (24-48) Monocytes (%) (Auto) 5 % (0-9) Eosinophils (%) (Auto) 2 % (0-3) Basophils (%) (Auto) 1 % (0-3) Neutrophils # (Auto) 11.5 x10^3uL (1.8-7.7) Lymphocytes # (Auto) 1.2 x10^3/uL (1.0-4.8) Monocytes # (Auto) 0.7 x10^3/uL (0.0-1.1) Eosinophils # (Auto) 0.2 x10^3/uL (0.0-0.7) Basophils # (Auto) 0.1 x10^3/uL (0.0-0.2) Sodium Level 135 mmol/L (136-145) Potassium Level 3.8 mmol/L (3.5-5.1) Chloride Level 100 mmol/L (98-107) Carbon Dioxide Level 25 mmol/L (21-32) Anion Gap 10 (6-14) Blood Urea Nitrogen 10 mg/dL (8-26) Creatinine 0.9 mg/dL (0.7-1.3) Estimated GFR (Cockcroft-Gault) 81.0 BUN/Creatinine Ratio 11 (6-20) Glucose Level 402 mg/dL (70-99) Calcium Level 7.9 mg/dL (8.5-10.1) Total Bilirubin 0.4 mg/dL (0.2-1.0) Aspartate Amino Transf (AST/SGOT) 41 U/L (15-37) Alanine Aminotransferase (ALT/SGPT) 109 U/L (16-63) Alkaline Phosphatase 92 U/L (46-116) Total Protein 5.7 g/dL (6.4-8.2) Albumin 2.2 g/dL (3.4-5.0) Albumin/Globulin Ratio 0.6 (1.0-1.7) Vancomycin Level Trough 8.6 mcg/mL (10.0-20.0) Vancomycin Last Dose Date 04/23/18 Vancomycin Last Dose Time 2100 Assessment and Plan Assessmemt and Plan Problems Medical Problems: (1) Abdominal abscess Status: Acute (2) Diverticulosis Status: Acute (3) Hyperglycemia Status: Acute (4) Perforation bowel Status: Acute Comment Review of Relevant I have reviewed the following items mukesh (where applicable) has been applied. Labs Laboratory Tests Test 04/22/18 12:01 04/22/18 16:41 04/22/18 19:00 04/22/18 22:13 Glucose (Fingerstick) 241 mg/dL (70-99) 233 mg/dL (70-99) 255 mg/dL (70-99) Vancomycin Level Trough 5.9 mcg/mL (10.0-20.0) Vancomycin Last Dose Date 04/21/18 Vancomycin Last Dose Time 1930 Test 04/23/18 04:10 04/23/18 08:08 04/23/18 12:00 04/23/18 16:56 White Blood Count 12.9 x10^3/uL (4.0-11.0) Red Blood Count 3.73 x10^6/uL (4.30-5.70) Hemoglobin 11.0 g/dL (13.0-17.5) Hematocrit 33.1 % (39.0-53.0) Mean Corpuscular Volume 89 fL (79-100) Mean Corpuscular Hemoglobin 29 pg (25-35) Mean Corpuscular Hemoglobin Concent 33 g/dL (31-37) Red Cell Distribution Width 13.7 % (11.5-14.5) Platelet Count 278 x10^3/uL (140-400) Neutrophils (%) (Auto) 83 % (31-73) Lymphocytes (%) (Auto) 10 % (24-48) Monocytes (%) (Auto) 6 % (0-9) Eosinophils (%) (Auto) 1 % (0-3) Basophils (%) (Auto) 0 % (0-3) Neutrophils # (Auto) 10.7 x10^3uL (1.8-7.7) Lymphocytes # (Auto) 1.3 x10^3/uL (1.0-4.8) Monocytes # (Auto) 0.7 x10^3/uL (0.0-1.1) Eosinophils # (Auto) 0.2 x10^3/uL (0.0-0.7) Basophils # (Auto) 0.0 x10^3/uL (0.0-0.2) Sodium Level 137 mmol/L (136-145) Potassium Level 3.7 mmol/L (3.5-5.1) Chloride Level 104 mmol/L (98-107) Carbon Dioxide Level 25 mmol/L (21-32) Anion Gap 8 (6-14) Blood Urea Nitrogen 18 mg/dL (8-26) Creatinine 0.9 mg/dL (0.7-1.3) Estimated GFR (Cockcroft-Gault) 81.0 BUN/Creatinine Ratio 20 (6-20) Glucose Level 253 mg/dL (70-99) Calcium Level 7.9 mg/dL (8.5-10.1) Total Bilirubin 0.3 mg/dL (0.2-1.0) Aspartate Amino Transf (AST/SGOT) 60 U/L (15-37) Alanine Aminotransferase (ALT/SGPT) 135 U/L (16-63) Alkaline Phosphatase 94 U/L (46-116) Total Protein 5.8 g/dL (6.4-8.2) Albumin 1.9 g/dL (3.4-5.0) Albumin/Globulin Ratio 0.5 (1.0-1.7) Glucose (Fingerstick) 104 mg/dL (70-99) 291 mg/dL (70-99) 229 mg/dL (70-99) Test 04/23/18 20:36 04/24/18 07:55 04/24/18 09:00 Glucose (Fingerstick) 328 mg/dL (70-99) 271 mg/dL (70-99) White Blood Count 13.7 x10^3/uL (4.0-11.0) Red Blood Count 3.95 x10^6/uL (4.30-5.70) Hemoglobin 11.4 g/dL (13.0-17.5) Hematocrit 34.7 % (39.0-53.0) Mean Corpuscular Volume 88 fL (79-100) Mean Corpuscular Hemoglobin 29 pg (25-35) Mean Corpuscular Hemoglobin Concent 33 g/dL (31-37) Red Cell Distribution Width 13.8 % (11.5-14.5) Platelet Count 327 x10^3/uL (140-400) Neutrophils (%) (Auto) 84 % (31-73) Lymphocytes (%) (Auto) 9 % (24-48) Monocytes (%) (Auto) 5 % (0-9) Eosinophils (%) (Auto) 2 % (0-3) Basophils (%) (Auto) 1 % (0-3) Neutrophils # (Auto) 11.5 x10^3uL (1.8-7.7) Lymphocytes # (Auto) 1.2 x10^3/uL (1.0-4.8) Monocytes # (Auto) 0.7 x10^3/uL (0.0-1.1) Eosinophils # (Auto) 0.2 x10^3/uL (0.0-0.7) Basophils # (Auto) 0.1 x10^3/uL (0.0-0.2) Sodium Level 135 mmol/L (136-145) Potassium Level 3.8 mmol/L (3.5-5.1) Chloride Level 100 mmol/L (98-107) Carbon Dioxide Level 25 mmol/L (21-32) Anion Gap 10 (6-14) Blood Urea Nitrogen 10 mg/dL (8-26) Creatinine 0.9 mg/dL (0.7-1.3) Estimated GFR (Cockcroft-Gault) 81.0 BUN/Creatinine Ratio 11 (6-20) Glucose Level 402 mg/dL (70-99) Calcium Level 7.9 mg/dL (8.5-10.1) Total Bilirubin 0.4 mg/dL (0.2-1.0) Aspartate Amino Transf (AST/SGOT) 41 U/L (15-37) Alanine Aminotransferase (ALT/SGPT) 109 U/L (16-63) Alkaline Phosphatase 92 U/L (46-116) Total Protein 5.7 g/dL (6.4-8.2) Albumin 2.2 g/dL (3.4-5.0) Albumin/Globulin Ratio 0.6 (1.0-1.7) Vancomycin Level Trough 8.6 mcg/mL (10.0-20.0) Vancomycin Last Dose Date 04/23/18 Vancomycin Last Dose Time 2100 Laboratory Tests Test 04/23/18 12:00 04/23/18 16:56 04/23/18 20:36 04/24/18 07:55 Glucose (Fingerstick) 291 mg/dL (70-99) 229 mg/dL (70-99) 328 mg/dL (70-99) 271 mg/dL (70-99) Test 04/24/18 09:00 White Blood Count 13.7 x10^3/uL (4.0-11.0) Red Blood Count 3.95 x10^6/uL (4.30-5.70) Hemoglobin 11.4 g/dL (13.0-17.5) Hematocrit 34.7 % (39.0-53.0) Mean Corpuscular Volume 88 fL (79-100) Mean Corpuscular Hemoglobin 29 pg (25-35) Mean Corpuscular Hemoglobin Concent 33 g/dL (31-37) Red Cell Distribution Width 13.8 % (11.5-14.5) Platelet Count 327 x10^3/uL (140-400) Neutrophils (%) (Auto) 84 % (31-73) Lymphocytes (%) (Auto) 9 % (24-48) Monocytes (%) (Auto) 5 % (0-9) Eosinophils (%) (Auto) 2 % (0-3) Basophils (%) (Auto) 1 % (0-3) Neutrophils # (Auto) 11.5 x10^3uL (1.8-7.7) Lymphocytes # (Auto) 1.2 x10^3/uL (1.0-4.8) Monocytes # (Auto) 0.7 x10^3/uL (0.0-1.1) Eosinophils # (Auto) 0.2 x10^3/uL (0.0-0.7) Basophils # (Auto) 0.1 x10^3/uL (0.0-0.2) Sodium Level 135 mmol/L (136-145) Potassium Level 3.8 mmol/L (3.5-5.1) Chloride Level 100 mmol/L (98-107) Carbon Dioxide Level 25 mmol/L (21-32) Anion Gap 10 (6-14) Blood Urea Nitrogen 10 mg/dL (8-26) Creatinine 0.9 mg/dL (0.7-1.3) Estimated GFR (Cockcroft-Gault) 81.0 BUN/Creatinine Ratio 11 (6-20) Glucose Level 402 mg/dL (70-99) Calcium Level 7.9 mg/dL (8.5-10.1) Total Bilirubin 0.4 mg/dL (0.2-1.0) Aspartate Amino Transf (AST/SGOT) 41 U/L (15-37) Alanine Aminotransferase (ALT/SGPT) 109 U/L (16-63) Alkaline Phosphatase 92 U/L (46-116) Total Protein 5.7 g/dL (6.4-8.2) Albumin 2.2 g/dL (3.4-5.0) Albumin/Globulin Ratio 0.6 (1.0-1.7) Vancomycin Level Trough 8.6 mcg/mL (10.0-20.0) Vancomycin Last Dose Date 04/23/18 Vancomycin Last Dose Time 2100 Microbiology 04/20/18 Blood Culture - Preliminary, Resulted NO GROWTH AFTER 3 DAYS 04/21/18 Anaerobic/Aerobic Culture, Resulted Pending 04/21/18 Anaerobic Culture Result 1 (AMBROCIO), Resulted Pending 04/21/18 Aerobic Culture - Preliminary, Resulted 04/21/18 Aerobic Culture Result 1 (AMBROCIO) - Preliminary, Resulted 04/21/18 Aerobic Culture Result 2 (AMBROCIO) - Preliminary, Resulted 04/21/18 Aerobic Culture Result 3 (AMBROCIO) - Preliminary, Resulted 04/21/18 Gram Stain - Final, Resulted 04/21/18 Gram Stain Result 1 (AMBROCIO) - Final, Resulted 04/21/18 Gram Stain Result 2 (AMBROCIO) - Final, Resulted 04/21/18 Gram Stain Result 3 (AMBROCIO) - Final, Resulted 04/21/18 Gram Stain Result 4 (AMBROCIO) - Final, Resulted Medications Current Medications Sodium Chloride 1,000 ml @ 2,190 mls/hr Q28M IV Last administered on at 19:39; Start 04/20/18 at 18:09; Stop 04/20/18 at 19:06; Status DC Piperacillin Sod/ Tazobactam Sod 4.5 gm/Sodium Chloride 100 ml @ 200 mls/hr 1X ONCE IV Last administered on 04/20/18at 18:58; Start 04/20/18 at 18:15; Stop 04/20/18 at 18:44; Status DC Vancomycin HCl (Vanco Per Pharmacy) 1 each 1X ONCE MC ; Start 04/20/18 at 18:15 ; Stop 04/20/18 at 18:16; Status Cancel Morphine Sulfate (Morphine Sulfate) 4 mg PRN Q15MIN PRN IV/SQ PAIN GREATER THAN 3/10; Start 04/20/18 at 18:15; Stop 04/21/18 at 18:14; Status DC Vancomycin HCl 1.5 gm/Sodium Chloride 500 ml @ 250 mls/hr 1X ONCE IV Last administered on 04/20/18at 19:35; Start 04/20/18 at 18:30; Stop 04/20/18 at 20:29 ; Status DC Insulin Human Regular (HumuLIN R VIAL) 8 unit 1X ONCE SQ Last administered on 04/20/18at 19:33; Start 04/20/18 at 19:15; Stop 04/20/18 at 19:29; Status DC Insulin Human Lispro (HumaLOG) 0-5 UNITS TIDWMEALS SQ Last administered on at 17:24; Start 04/21/18 at 08:00 Dextrose (Dextrose 50%-Water Syringe) 12.5 gm PRN Q15MIN PRN IV SEE COMMENTS; Start 04/20/18 at 19:45 Ondansetron HCl (Zofran) 4 mg PRN Q8HRS PRN IV NAUSEA/VOMITING; Start 04/20/18 at 20:00; Stop 04/21/18 at 19:59; Status DC Morphine Sulfate (Morphine Sulfate) 4 mg PRN Q2HR PRN IV PAIN Last administered on 04/21/18at 07:29; Start 04/20/18 at 20:00; Stop 04/21/18 at 19:59 ; Status DC Sodium Chloride 1,000 ml @ 125 mls/hr 1X ONCE IV ; Start 04/20/18 at 20:00; Stop 04/21/18 at 03:59; Status DC Sodium Chloride 1,000 ml @ 75 mls/hr [id number] IV Last administered on 07:00; Start 04/20/18 at 21:30 Insulin Human Lispro (HumaLOG) 5 units 1X ONCE SQ Last administered on at 21:57; Start 04/20/18 at 21:30; Stop 04/20/18 at 21:31; Status DC Sodium Chloride 1,000 ml @ 1,000 mls/hr 1X ONCE IV Last administered on at 02:01; Start 04/21/18 at 02:00; Stop 04/21/18 at 02:59; Status DC Norepinephrine Bitartrate 250 ml @ 1.875 mls/ hr CONT PRN IV SEE I/O RECORD Last administered on 04/21/18at 02:27; Start 04/21/18 at 02:00; Stop 04/23/18 at 14:18; Status DC Piperacillin Sod/ Tazobactam Sod 3.375 gm/Sodium Chloride 50 ml @ 100 mls/hr Q6HRS IV Last administered on 04/24/18 06:01; Start 04/21/18 at 08:00 Micafungin Sodium 100 mg/Dextrose 100 ml @ 100 mls/hr Q24H IV Last administered on 04/23/18 08:12; Start 04/21/18 at 08:00 Vancomycin HCl (Vanco Per Pharmacy) 1 each PRN DAILY PRN MC SEE COMMENTS Last administered on 04/23/18 14:18; Start 04/21/18 at 09:15 Vancomycin HCl 1 gm/Sodium Chloride 250 ml @ 250 mls/hr Q24H IV Last administered on 04/21/18at 20:03; Start 04/21/18 at 19:30; Stop 04/22/18 at 20:16 ; Status DC Vancomycin HCl (Vancomycin Trough Level) 1 each 1X ONCE MC ; Start 04/22/18 at 19:00; Stop 04/22/18 at 19:01; Status DC Aspirin (Ecotrin) 81 mg DAILYWBKFT PO Last administered on 04/23/18at 08:13; Start 04/21/18 at 10:00 Atorvastatin Calcium (Lipitor) 40 mg QHS PO Last administered on 04/23/18 20:51 ; Start 04/21/18 at 21:00 Lidocaine/Sodium Bicarbonate (Buffered Lidocaine 1%) 3 ml STK-MED ONCE .ROUTE ; Start 04/21/18 at 10:17; Stop 04/21/18 at 10:18; Status DC Pantoprazole Sodium (PROTONIX VIAL for IV PUSH) 40 mg DAILYAC IVP Last administered on 04/22/18at 07:51; Start 04/21/18 at 11:00; Stop 04/22/18 at 12:39 ; Status DC Midazolam HCl (Versed) 2 mg STK-MED ONCE .ROUTE ; Start 04/21/18 at 10:53; Stop 04/21/18 at 10:55; Status DC Fentanyl Citrate (Fentanyl 2ml Vial) 100 mcg STK-MED ONCE .ROUTE ; Start at 10:53; Stop 04/21/18 at 10:56; Status DC Lidocaine/Sodium Bicarbonate (Buffered Lidocaine 1%) 3 ml 1X ONCE IJ Last administered on 04/21/18at 11:37; Start 04/21/18 at 11:00; Stop 04/21/18 at 11:02 ; Status DC Midazolam HCl (Versed) 2 mg 1X ONCE IV Last administered on 04/21/18at 11:37; Start 04/21/18 at 11:00; Stop 04/21/18 at 11:02; Status DC Fentanyl Citrate (Fentanyl 2ml Vial) 100 mcg 1X ONCE IV Last administered on at 11:37; Start 04/21/18 at 11:00; Stop 04/21/18 at 11:02; Status DC Insulin Human Lispro (HumaLOG) 0-7 UNITS TIDWMEALS SQ ; Start 04/21/18 at 17:00 ; Status UNV Dextrose (Dextrose 50%-Water Syringe) 12.5 gm PRN Q15MIN PRN IV SEE COMMENTS; Start 04/21/18 at 16:30; Status UNV Amino Acids/ Glycerin/ Electrolytes 1,000 ml @ 80 mls/hr [id number] IV Last administered on 04/24/18at 03:38; Start 04/21/18 at 17:00 Saliva Substitute (Biotene Moisturizing Mouth) 2 spray PRN Q15MIN PRN PO DRY MOUTH; Start 04/21/18 at 16:30 Sodium Chloride 1,000 ml @ 1,000 mls/hr 1X ONCE IV Last administered on at 16:30; Start 04/21/18 at 16:30; Stop 04/21/18 at 17:29; Status DC Morphine Sulfate (Morphine Sulfate) 4 mg PRN Q2HR PRN IV SEVERE PAIN Last administered on 04/21/18at 21:35; Start 04/21/18 at 21:30 Insulin Glargine (Lantus) 8 units DAILY10 SQ Last administered on 04/23/18at 10: 13; Start 04/22/18 at 10:00 Pantoprazole Sodium (Protonix) 40 mg DAILYAC PO Last administered on 04/24/18 06:01; Start 04/23/18 at 07:30 Clopidogrel Bisulfate (Plavix) 75 mg DAILYWBKFT PO Last administered on at 08:13; Start 04/22/18 at 17:00 Vancomycin HCl 750 mg/Sodium Chloride 250 ml @ 250 mls/hr Q12H IV Last administered on 04/23/18at 20:51; Start 04/22/18 at 21:00 Vancomycin HCl (Vancomycin Trough Level) 1 each 1X ONCE MC ; Start 04/24/18 at 08:30; Stop 04/24/18 at 08:31; Status DC Zolpidem Tartrate (Ambien) 5 mg PRN QHS PRN PO INSOMNIA Last administered on at 21:28; Start 04/22/18 at 21:00 Insulin Human Lispro (HumaLOG) 2 units 1X ONCE SQ Last administered on at 22:30; Start 04/22/18 at 23:00; Stop 04/22/18 at 23:01; Status DC Insulin Human Lispro (HumaLOG) 3 units 1X ONCE SQ Last administered on at 21:00; Start 04/23/18 at 21:00; Stop 04/23/18 at 21:01; Status DC Active Scripts Active Lipitor (Atorvastatin Calcium) 40 Mg Tablet 1 Tab PO QHS Aspirin Ec (Aspirin) 81 Mg Tablet. 81 Mg PO DAILYWBKFT Brilinta (Ticagrelor) 90 Mg Tablet 90 Mg PO BID Reported Soma (Carisoprodol) 350 Mg Tablet 1 Tab PO BID Omeprazole 40 Mg Capsule. 1 Cap PO DAILY Symbicort 80-4.5 Mcg Inhaler (Budesonide/Formoterol Fumarate) 10.2 Gm Hfa.aer.ad 1 Puff IH BID Metformin Hcl 500 Mg Tablet 500 Mg PO BIDWMEALS Amaryl (Glimepiride) 4 Mg Tablet 1 Tab PO DAILY Amlodipine Besylate 5 Mg Tablet 5 Mg PO DAILY Carvedilol (Carvedilol) 12.5 Mg Tablet 1 Tab PO BID Colestipol Hcl 1 Gm Tablet 2 Gm PO 1X Magnesium Oxide 400 Mg Tablet 250 Tab PO DAILY Vitamin D3 (Cholecalciferol (Vitamin D3)) 1,000 Unit Tablet 2,000 Tab PO DAILY Vitals/I & O Vital Sign - Last 24 Hours 04/23/18 04/23/18 04/23/18 04/23/18 11:00 15:00 19:00 19:51 Temp 98.1 98.2 98.3 98.1 98.2 98.3 Pulse 79 91 104 Resp 20 18 18 B/P (MAP) 129/70 (89) 130/67 (88) 118/76 (90) Pulse Ox 96 98 95 O2 Delivery Room Air Room Air Room Air Room Air 04/23/18 04/24/18 04/24/18 23:00 03:00 07:00 Temp 98.4 98.4 98.1 98.4 98.4 98.1 Pulse 91 86 109 Resp 18 18 16 B/P (MAP) 132/83 (99) 116/61 (79) 138/90 (106) Pulse Ox 96 93 97 O2 Delivery Room Air Room Air Room Air Intake and Output 04/23/18 04/23/18 04/24/18 15:01 23:01 07:01 Intake Total 200 ml Output Total 30 ml Balance 170 ml Nutrition Consultation Dietary Evaluation: Recommendations by RD: PPN/TPN Comments: REC ADA diet per 's request, honor food preferences Continue PPN until PO intake of meals >75% est needs Expected Outcomes/Goals: Initiation of nutrition within 24-48 hrs - met, new goal established New goal 04/23: PO intake to meet >75% est needs Interpretation of weight loss: >5% in 1 month Malnutrition Findings: Food and Nutrition Intake (Mod: <75% est energy req 7days Weight Status: Appropriate ASHIA DEVRIES MD Apr 24, 2018 09:57
[2018-04-24] MEDS: INSULIN LISPRO 300 UNITS/3 ML INSULN.PEN. SQ SCH ×3 (10:07→17:15)
[2018-04-24] MEDS: INSULIN GLARGINE 300 UNITS/3 ML INSULN.PEN. SQ SCH (10:08)
[2018-04-24 11:00] VITALS: BP 136/87
[2018-04-24] MEDS: VANCOMYCIN PER PHARMACY MC PRN ×2 (11:16→11:19)
--- NOTE | 2018-04-24 11:20 | NUR ---
Pharmacy Vancomycin Dosing Note S:Consulted to monitor and dose vancomycin started 04/21/18. O:EDITH SELBY is a 82 year old M with Sepsis Abdominal abscess, perforated viscus . Height: 5 feet, 10 inches Weight: 61.181209 kg [place] Body Weight: 73.00 Adjusted Body Weight: 68.52 Dosing Weight: Actual Other Antibiotics: zosyn micafungin LABS: Last BUN: 10 Last Creatinine: 0.9 Creatinine Clearance: 51 mL/min Last WBC: 13.7 Last Procalcitonin: 0.15 Tmax (past 24 hours): 98.2 Microbiology: 04/20 Blood: no growth ABCESS GRAM STAIN: GNR AND GPR I/O: 200/4 VOIDS Drug Levels: Last Trough level: 8.6 on 04/24/18 at 0900 Last dose given 04/23/18 at 2051 Vancomycin Dosing: Loading Dose: 1500 mg x1 Dosing Weight: Actual Target Trough: 15-20 A: Based on: subtherapeutic trough, P: 1. Initiate new regimen of Vancomycin 1000 mg IV q12h 2. Follow up Trough level on 04/25/18 at 2300 3. Pharmacy will continue to monitor, follow and adjust therapy as needed. SABRA ROWAN [facility], 04/24/18 1120
--- NOTE | 2018-04-24 13:35 | PDOC ---
Infectious Disease Note Subjective Subjective Mild cough Pain controlled Eating No F/C/S/SOA/Rash/dysuria/N/V/D ROS ROS per HPI Vital Sign Vital Signs Vital Signs Date Time Temp Pulse Resp B/P (MAP) Pulse Ox O2 Delivery O2 Flow Rate FiO2 04/24/18 07:00 98.1 109 16 138/90 (106) 97 Room Air 98.1 Physical Exam PHYSICAL EXAM GENERAL: Propped up in bed, alert, NAD HEENT: Pupils equal and reactive. Oral cavity, pharynx is clear. NECK: Supple, no JVD. LUNGS: Clear to auscultation, soft upper airway wheeze HEART: S1, S2. ABDOMEN: Obese, soft. BS present. JEREMY in place with some purulent material EXTREMITIES: No clubbing, cyanosis or gross edema. SKIN: Warm to touch without signs of rash. NEUROLOGIC: Alert, nonfocal and appropriate. IV Labs Lab Laboratory Tests Test 04/23/18 16:56 04/23/18 20:36 04/24/18 07:55 04/24/18 09:00 Glucose (Fingerstick) 229 mg/dL (70-99) 328 mg/dL (70-99) 271 mg/dL (70-99) White Blood Count 13.7 x10^3/uL (4.0-11.0) Red Blood Count 3.95 x10^6/uL (4.30-5.70) Hemoglobin 11.4 g/dL (13.0-17.5) Hematocrit 34.7 % (39.0-53.0) Mean Corpuscular Volume 88 fL (79-100) Mean Corpuscular Hemoglobin 29 pg (25-35) Mean Corpuscular Hemoglobin Concent 33 g/dL (31-37) Red Cell Distribution Width 13.8 % (11.5-14.5) Platelet Count 327 x10^3/uL (140-400) Neutrophils (%) (Auto) 84 % (31-73) Lymphocytes (%) (Auto) 9 % (24-48) Monocytes (%) (Auto) 5 % (0-9) Eosinophils (%) (Auto) 2 % (0-3) Basophils (%) (Auto) 1 % (0-3) Neutrophils # (Auto) 11.5 x10^3uL (1.8-7.7) Lymphocytes # (Auto) 1.2 x10^3/uL (1.0-4.8) Monocytes # (Auto) 0.7 x10^3/uL (0.0-1.1) Eosinophils # (Auto) 0.2 x10^3/uL (0.0-0.7) Basophils # (Auto) 0.1 x10^3/uL (0.0-0.2) Sodium Level 135 mmol/L (136-145) Potassium Level 3.8 mmol/L (3.5-5.1) Chloride Level 100 mmol/L (98-107) Carbon Dioxide Level 25 mmol/L (21-32) Anion Gap 10 (6-14) Blood Urea Nitrogen 10 mg/dL (8-26) Creatinine 0.9 mg/dL (0.7-1.3) Estimated GFR (Cockcroft-Gault) 81.0 BUN/Creatinine Ratio 11 (6-20) Glucose Level 402 mg/dL (70-99) Calcium Level 7.9 mg/dL (8.5-10.1) Total Bilirubin 0.4 mg/dL (0.2-1.0) Aspartate Amino Transf (AST/SGOT) 41 U/L (15-37) Alanine Aminotransferase (ALT/SGPT) 109 U/L (16-63) Alkaline Phosphatase 92 U/L (46-116) Total Protein 5.7 g/dL (6.4-8.2) Albumin 2.2 g/dL (3.4-5.0) Albumin/Globulin Ratio 0.6 (1.0-1.7) Vancomycin Level Trough 8.6 mcg/mL (10.0-20.0) Vancomycin Last Dose Date 04/23/18 Vancomycin Last Dose Time 2100 Micro BLOOD CULTURE Preliminary AEROBIC RES 1 Preliminary Gram negative rods AEROBIC RES 2 Preliminary Gram negative rods AEROBIC RES 3 Preliminary Mixed skin mireya GRAM STAIN RES 2 Final Comment Moderate gram negative rods. GRAM STAIN RES 3 Final Gram positive rods Few seen GRAM STAIN RES 4 Final Yeast isolated. Objective Assessment Sepsis - POA Off Levophed now. C-diff neg/MRSA neg - better Leukocytosis Perforated viscous Abd abscesses - S/p IR 04/21 gram stain with GNR, GPR, yeast Transaminitis - improved DM Plan Plan of Care Cont Vanc, Zosyn and Micafungin Trough 8.6 Probiotics F/u labs in am and cults D/w Attending Co-Sign The patient was seen and interviewed as well as examined at the bedside. The chart was reviewed. The case was discussed. Agree with the plan of care. LIDIA GARCIAS APRN Apr 24, 2018 13:35 ALEXA DUMONT MD Apr 24, 2018 13:46
[2018-04-24] MEDS: VANCOMYCIN 1 GM in IV NORMAL SALINE 250ML 250 ML IV SCH ×2 (14:35→23:16)
[2018-04-24 15:00] VITALS: BP 105/51
[2018-04-24] MEDS ORDERED: ASPIRIN ENTERIC COATED 81 MG TABLET.DR. PO SCH (16:00)
[2018-04-24] MEDS: amLODIPine BESYLATE 5 MG TABLET PO SCH (16:00)
[2018-04-24] MEDS: CHOLECALCIFEROL (VITAMIN D3) 1,000 UNIT TABLET PO SCH (17:09)
[2018-04-24] MEDS: CARVEDILOL 12.5 MG TABLET. PO SCH (17:10)
[2018-04-24 20:00] VITALS: BP 141/88
[2018-04-24] MEDS: ALBUTEROL SULFATE 2.5 MG/3 ML NEBU. NEB SCH (20:23)
[2018-04-24] MEDS ORDERED: ATORVASTATIN CALCIUM 40 MG TABLET. PO SCH (21:00)
[2018-04-24] MEDS ORDERED: INSULIN LISPRO 300 UNITS/3 ML INSULN.PEN. SQ ONE (21:30)
[2018-04-24] MEDS: LACTOBACILLUS RHAMNOSUS GG 1 CAPSULE. PO SCH (21:33)
[2018-04-24] MEDS: ATORVASTATIN CALCIUM 40 MG TABLET. PO SCH (21:33)
[2018-04-24 23:21] VITALS: BP 102/55
[2018-04-25] MEDS: PIPERACILLIN/TAZOBACTAM 3.375 GM in IV NORMAL SALINE 50ML 50 ML IV SCH ×4 (00:22→18:27)
[2018-04-25 03:19] VITALS: BP 124/65
[2018-04-25 04:34] LABS: BASO % 0 % (0-3); EOS # 0.3 x10^3/uL (0.0-0.7); EOS % 3 % (0-3); HEMATOCRIT 31.5 % (39.0-53.0); HEMOGLOBIN 10.6 g/dL (13.0-17.5); LYMPH # 1.6 x10^3/uL (1.0-4.8); LYMPH % 12 % (24-48); MEAN CORPUSCULAR HEMOGLOBIN 29 pg (25-35); MEAN CORPUSCULAR HGB CONC 34 g/dL (31-37); MEAN CORPUSCULAR VOLUME 87 fL (79-100); MONO # 0.9 x10^3/uL (0.0-1.1); MONO % 7 % (0-9); NEUT # 10.2 x10^3uL (1.8-7.7); NEUT % 78 % (31-73); PLATELET COUNT 330 x10^3/uL (140-400); RED BLOOD COUNT 3.61 x10^6/uL (4.30-5.70)
[2018-04-25 04:54] LABS: CALCIUM 8.2 mg/dL (8.5-10.1); CREATININE 0.8 mg/dL (0.7-1.3); GFR 92.8; POTASSIUM 3.6 mmol/L (3.5-5.1)
[2018-04-25] MEDS: PANTOPRAZOLE 40 MG TABLET.DR. PO SCH (05:44)
[2018-04-25 07:00] VITALS: BP 135/74
--- NOTE | 2018-04-25 07:49 | NUR ---
Dc tele by protocol.
[2018-04-25] MEDS: MICAFUNGIN 100 MG in IV DEXTROSE 5% 100ML 100 ML IV SCH (08:26)
[2018-04-25] MEDS: CHOLECALCIFEROL (VITAMIN D3) 1,000 UNIT TABLET PO SCH (08:27)
[2018-04-25] MEDS: LACTOBACILLUS RHAMNOSUS GG 1 CAPSULE. PO SCH ×2 (08:27→22:01)
[2018-04-25] MEDS: AMINO AC 3%/ELECTROLYTE/GLYCER 1,000 ML IV SCH (08:27)
[2018-04-25] MEDS: ASPIRIN ENTERIC COATED 81 MG TABLET.DR. PO SCH (08:28)
[2018-04-25] MEDS: CARVEDILOL 12.5 MG TABLET. PO SCH ×2 (08:32→18:27)
--- NOTE | 2018-04-25 08:32 | PDOC ---
DAYNE NEWBERRY [employer]ING MECH[employer]IC 04/25/18 0832: SURGICAL PROGRESS NOTE Subjective resting pain at drain site Vital Signs Vital Signs Date Time Temp Pulse Resp B/P (MAP) Pulse Ox O2 Delivery O2 Flow Rate FiO2 04/25/18 03:19 98.1 86 16 124/65 (84) 94 Room Air 98.1 I&O Intake and Output 04/25/18 07:01 Intake Total 2300 ml Balance 2300 ml Intake Oral 500 ml IV Total 1800 ml # Voids 4 # Bowel Movements 2 General: Alert, Oriented X3, Cooperative, No acute distress Abdomen: Normal bowel sounds, Other (drain purulent ) Labs Laboratory Tests Test 04/23/18 12:00 04/23/18 16:56 04/23/18 20:36 04/24/18 07:55 Glucose (Fingerstick) 291 mg/dL (70-99) 229 mg/dL (70-99) 328 mg/dL (70-99) 271 mg/dL (70-99) Test 04/24/18 09:00 04/24/18 11:33 04/24/18 16:22 04/24/18 20:55 White Blood Count 13.7 x10^3/uL (4.0-11.0) Red Blood Count 3.95 x10^6/uL (4.30-5.70) Hemoglobin 11.4 g/dL (13.0-17.5) Hematocrit 34.7 % (39.0-53.0) Mean Corpuscular Volume 88 fL (79-100) Mean Corpuscular Hemoglobin 29 pg (25-35) Mean Corpuscular Hemoglobin Concent 33 g/dL (31-37) Red Cell Distribution Width 13.8 % (11.5-14.5) Platelet Count 327 x10^3/uL (140-400) Neutrophils (%) (Auto) 84 % (31-73) Lymphocytes (%) (Auto) 9 % (24-48) Monocytes (%) (Auto) 5 % (0-9) Eosinophils (%) (Auto) 2 % (0-3) Basophils (%) (Auto) 1 % (0-3) Neutrophils # (Auto) 11.5 x10^3uL (1.8-7.7) Lymphocytes # (Auto) 1.2 x10^3/uL (1.0-4.8) Monocytes # (Auto) 0.7 x10^3/uL (0.0-1.1) Eosinophils # (Auto) 0.2 x10^3/uL (0.0-0.7) Basophils # (Auto) 0.1 x10^3/uL (0.0-0.2) Sodium Level 135 mmol/L (136-145) Potassium Level 3.8 mmol/L (3.5-5.1) Chloride Level 100 mmol/L (98-107) Carbon Dioxide Level 25 mmol/L (21-32) Anion Gap 10 (6-14) Blood Urea Nitrogen 10 mg/dL (8-26) Creatinine 0.9 mg/dL (0.7-1.3) Estimated GFR (Cockcroft-Gault) 81.0 BUN/Creatinine Ratio 11 (6-20) Glucose Level 402 mg/dL (70-99) Calcium Level 7.9 mg/dL (8.5-10.1) Total Bilirubin 0.4 mg/dL (0.2-1.0) Aspartate Amino Transf (AST/SGOT) 41 U/L (15-37) Alanine Aminotransferase (ALT/SGPT) 109 U/L (16-63) Alkaline Phosphatase 92 U/L (46-116) Total Protein 5.7 g/dL (6.4-8.2) Albumin 2.2 g/dL (3.4-5.0) Albumin/Globulin Ratio 0.6 (1.0-1.7) Vancomycin Level Trough 8.6 mcg/mL (10.0-20.0) Vancomycin Last Dose Date 04/23/18 Vancomycin Last Dose Time 2100 Glucose (Fingerstick) 285 mg/dL (70-99) 207 mg/dL (70-99) 260 mg/dL (70-99) Test 04/25/18 04:00 White Blood Count 13.0 x10^3/uL (4.0-11.0) Red Blood Count 3.61 x10^6/uL (4.30-5.70) Hemoglobin 10.6 g/dL (13.0-17.5) Hematocrit 31.5 % (39.0-53.0) Mean Corpuscular Volume 87 fL (79-100) Mean Corpuscular Hemoglobin 29 pg (25-35) Mean Corpuscular Hemoglobin Concent 34 g/dL (31-37) Red Cell Distribution Width 14.0 % (11.5-14.5) Platelet Count 330 x10^3/uL (140-400) Neutrophils (%) (Auto) 78 % (31-73) Lymphocytes (%) (Auto) 12 % (24-48) Monocytes (%) (Auto) 7 % (0-9) Eosinophils (%) (Auto) 3 % (0-3) Basophils (%) (Auto) 0 % (0-3) Neutrophils # (Auto) 10.2 x10^3uL (1.8-7.7) Lymphocytes # (Auto) 1.6 x10^3/uL (1.0-4.8) Monocytes # (Auto) 0.9 x10^3/uL (0.0-1.1) Eosinophils # (Auto) 0.3 x10^3/uL (0.0-0.7) Basophils # (Auto) 0.0 x10^3/uL (0.0-0.2) Sodium Level 137 mmol/L (136-145) Potassium Level 3.6 mmol/L (3.5-5.1) Chloride Level 102 mmol/L (98-107) Carbon Dioxide Level 26 mmol/L (21-32) Anion Gap 9 (6-14) Blood Urea Nitrogen 11 mg/dL (8-26) Creatinine 0.8 mg/dL (0.7-1.3) Estimated GFR (Cockcroft-Gault) 92.8 Glucose Level 238 mg/dL (70-99) Calcium Level 8.2 mg/dL (8.5-10.1) Laboratory Tests Test 04/24/18 09:00 04/24/18 11:33 04/24/18 16:22 04/24/18 20:55 White Blood Count 13.7 x10^3/uL (4.0-11.0) Red Blood Count 3.95 x10^6/uL (4.30-5.70) Hemoglobin 11.4 g/dL (13.0-17.5) Hematocrit 34.7 % (39.0-53.0) Mean Corpuscular Volume 88 fL (79-100) Mean Corpuscular Hemoglobin 29 pg (25-35) Mean Corpuscular Hemoglobin Concent 33 g/dL (31-37) Red Cell Distribution Width 13.8 % (11.5-14.5) Platelet Count 327 x10^3/uL (140-400) Neutrophils (%) (Auto) 84 % (31-73) Lymphocytes (%) (Auto) 9 % (24-48) Monocytes (%) (Auto) 5 % (0-9) Eosinophils (%) (Auto) 2 % (0-3) Basophils (%) (Auto) 1 % (0-3) Neutrophils # (Auto) 11.5 x10^3uL (1.8-7.7) Lymphocytes # (Auto) 1.2 x10^3/uL (1.0-4.8) Monocytes # (Auto) 0.7 x10^3/uL (0.0-1.1) Eosinophils # (Auto) 0.2 x10^3/uL (0.0-0.7) Basophils # (Auto) 0.1 x10^3/uL (0.0-0.2) Sodium Level 135 mmol/L (136-145) Potassium Level 3.8 mmol/L (3.5-5.1) Chloride Level 100 mmol/L (98-107) Carbon Dioxide Level 25 mmol/L (21-32) Anion Gap 10 (6-14) Blood Urea Nitrogen 10 mg/dL (8-26) Creatinine 0.9 mg/dL (0.7-1.3) Estimated GFR (Cockcroft-Gault) 81.0 BUN/Creatinine Ratio 11 (6-20) Glucose Level 402 mg/dL (70-99) Calcium Level 7.9 mg/dL (8.5-10.1) Total Bilirubin 0.4 mg/dL (0.2-1.0) Aspartate Amino Transf (AST/SGOT) 41 U/L (15-37) Alanine Aminotransferase (ALT/SGPT) 109 U/L (16-63) Alkaline Phosphatase 92 U/L (46-116) Total Protein 5.7 g/dL (6.4-8.2) Albumin 2.2 g/dL (3.4-5.0) Albumin/Globulin Ratio 0.6 (1.0-1.7) Vancomycin Level Trough 8.6 mcg/mL (10.0-20.0) Vancomycin Last Dose Date 04/23/18 Vancomycin Last Dose Time 2100 Glucose (Fingerstick) 285 mg/dL (70-99) 207 mg/dL (70-99) 260 mg/dL (70-99) Test 04/25/18 04:00 White Blood Count 13.0 x10^3/uL (4.0-11.0) Red Blood Count 3.61 x10^6/uL (4.30-5.70) Hemoglobin 10.6 g/dL (13.0-17.5) Hematocrit 31.5 % (39.0-53.0) Mean Corpuscular Volume 87 fL (79-100) Mean Corpuscular Hemoglobin 29 pg (25-35) Mean Corpuscular Hemoglobin Concent 34 g/dL (31-37) Red Cell Distribution Width 14.0 % (11.5-14.5) Platelet Count 330 x10^3/uL (140-400) Neutrophils (%) (Auto) 78 % (31-73) Lymphocytes (%) (Auto) 12 % (24-48) Monocytes (%) (Auto) 7 % (0-9) Eosinophils (%) (Auto) 3 % (0-3) Basophils (%) (Auto) 0 % (0-3) Neutrophils # (Auto) 10.2 x10^3uL (1.8-7.7) Lymphocytes # (Auto) 1.6 x10^3/uL (1.0-4.8) Monocytes # (Auto) 0.9 x10^3/uL (0.0-1.1) Eosinophils # (Auto) 0.3 x10^3/uL (0.0-0.7) Basophils # (Auto) 0.0 x10^3/uL (0.0-0.2) Sodium Level 137 mmol/L (136-145) Potassium Level 3.6 mmol/L (3.5-5.1) Chloride Level 102 mmol/L (98-107) Carbon Dioxide Level 26 mmol/L (21-32) Anion Gap 9 (6-14) Blood Urea Nitrogen 11 mg/dL (8-26) Creatinine 0.8 mg/dL (0.7-1.3) Estimated GFR (Cockcroft-Gault) 92.8 Glucose Level 238 mg/dL (70-99) Calcium Level 8.2 mg/dL (8.5-10.1) Problem List Problems Medical Problems: (1) Abdominal abscess Status: Acute (2) Diverticulosis Status: Acute (3) Hyperglycemia Status: Acute (4) Perforation bowel Status: Acute Assessment/Plan continue drain ASHIA BURNETT MD 04/25/18 1250: SURGICAL PROGRESS NOTE Assessment/Plan Agree with Julia's assessment and plan DAYNE NEWBERRY APRN Apr 25, 2018 08:32 ASHIA BURNETT MD Apr 25, 2018 12:50
[2018-04-25] MEDS: CLOPIDOGREL BISULFATE 75 MG TABLET PO SCH (08:33)
[2018-04-25] MEDS: amLODIPine BESYLATE 5 MG TABLET PO SCH (08:33)
[2018-04-25] MEDS: ALBUTEROL SULFATE 2.5 MG/3 ML NEBU. NEB SCH ×4 (08:33→21:38)
[2018-04-25] MEDS: INSULIN LISPRO 300 UNITS/3 ML INSULN.PEN. SQ SCH ×3 (08:38→16:27)
--- NOTE | 2018-04-25 09:51 | PDOC ---
PROGRESS NOTES Chief Complaint Chief Complaint impression 1. Acute abdominal pain, sepsis POA, with perforated bowel, diverticula, JEREMY in place with some purulent material POD # 4 CT-guided abdominal abscess drain 2. abdominal abscesses 3, diabetes 2, hyperglycemia, CONTROL poor lantus added 12 units hs sq 4. CAD post stent 2018 5. severe malnutrition, POA 6. wheezing 7. S/p IR 04/21 gram stain with E. coli (R quinolones), Klebsiella (yeast on gram stain) History of Present Illness History of Present Illness cont broad abx drain working well, fluid looks less dark, emptyed x3 overnight, JEREMY in place with some purulent material pain much better, up to chair gen surg and GI and ID following better glucose control needed, on SSI, add lantus Vitals Vitals Vital Signs Date Time Temp Pulse Resp B/P (MAP) Pulse Ox O2 Delivery O2 Flow Rate FiO2 04/25/18 08:34 96 Room Air 04/25/18 08:33 86 135/74 04/25/18 07:00 97.9 16 97.9 Physical Exam Physical Exam GENERAL: Propped up in bed, alert, NAD HEENT: Pupils equal and reactive. Oral cavity, pharynx is clear. NECK: Supple, no JVD. LUNGS: Clear to auscultation, soft upper airway wheeze HEART: S1, S2. ABDOMEN: Obese, soft. BS present. JEREMY in place with some purulent material EXTREMITIES: No clubbing, cyanosis or gross edema. SKIN: Warm to touch without signs of rash. NEUROLOGIC: Alert, nonfocal and appropriate. IV General: Alert, Oriented X3, Cooperative, No acute distress Heart: Regular rate (SR no ectopies), Normal S1, Normal S2, No murmurs, Other ( 2/6 systolic murmur to LLS border) Lungs: Clear, Wheezing Abdomen: Normal bowel sounds, Other (drain purulent ) Extremities: No clubbing, No cyanosis, No edema, No tenderness/swelling Skin: No breakdown, No significant lesion Labs LABS ANTIMICROBIAL SUSCEPTIBILITY Final Comment S = Susceptible; I = Intermediate; R = Resistant P = Positive; N = Negative MICS are expressed in micrograms per mL Antibiotic RSLT#1 RSLT#2 RSLT#3 RSLT#4 Amoxicillin/Clavulanic Acid S =4 R>=32 Ampicillin S =4 Cefazolin R>=64 CONTINUED ON NEXT PAGE RUN DATE: 04/24/18 PAGE 2 RUN TIME: 1611 [facility] [address] [place] [address] Jonathan aSuceda M.D., [employer] Operator SPEC: [id number] PATIENT: EDITH SELBY [id number] ( Continued) Procedure Result ANTIMICROBIAL SUSCEPTIBILITY Final (continued) Cefepime S<=0.12 S<=0.12 Ceftriaxone S<=0.25 S<=0.25 Cefuroxime S =4 R =R Ciprofloxacin R>=4 S<=0.25 Ertapenem S<=0.12 S<=0.12 Gentamicin S<=1 S<=1 Imipenem S<=0.25 S =1 Levofloxacin R>=8 S<=0.12 Meropenem S<=0.25 S<=0.25 Piperacillin/Tazobactam S<=4 Tetracycline S<=1 S<=1 Tobramycin S<=1 S<=1 Trimethoprim/Sulfa S<=20 S<=20 GRAM STAIN Final Final report Laboratory Tests Test 04/24/18 11:33 04/24/18 16:22 04/24/18 20:55 04/25/18 04:00 Glucose (Fingerstick) 285 mg/dL (70-99) 207 mg/dL (70-99) 260 mg/dL (70-99) White Blood Count 13.0 x10^3/uL (4.0-11.0) Red Blood Count 3.61 x10^6/uL (4.30-5.70) Hemoglobin 10.6 g/dL (13.0-17.5) Hematocrit 31.5 % (39.0-53.0) Mean Corpuscular Volume 87 fL (79-100) Mean Corpuscular Hemoglobin 29 pg (25-35) Mean Corpuscular Hemoglobin Concent 34 g/dL (31-37) Red Cell Distribution Width 14.0 % (11.5-14.5) Platelet Count 330 x10^3/uL (140-400) Neutrophils (%) (Auto) 78 % (31-73) Lymphocytes (%) (Auto) 12 % (24-48) Monocytes (%) (Auto) 7 % (0-9) Eosinophils (%) (Auto) 3 % (0-3) Basophils (%) (Auto) 0 % (0-3) Neutrophils # (Auto) 10.2 x10^3uL (1.8-7.7) Lymphocytes # (Auto) 1.6 x10^3/uL (1.0-4.8) Monocytes # (Auto) 0.9 x10^3/uL (0.0-1.1) Eosinophils # (Auto) 0.3 x10^3/uL (0.0-0.7) Basophils # (Auto) 0.0 x10^3/uL (0.0-0.2) Sodium Level 137 mmol/L (136-145) Potassium Level 3.6 mmol/L (3.5-5.1) Chloride Level 102 mmol/L (98-107) Carbon Dioxide Level 26 mmol/L (21-32) Anion Gap 9 (6-14) Blood Urea Nitrogen 11 mg/dL (8-26) Creatinine 0.8 mg/dL (0.7-1.3) Estimated GFR (Cockcroft-Gault) 92.8 Glucose Level 238 mg/dL (70-99) Calcium Level 8.2 mg/dL (8.5-10.1) Test 04/25/18 08:10 Glucose (Fingerstick) 262 mg/dL (70-99) Assessment and Plan Assessmemt and Plan Problems Medical Problems: (1) Abdominal abscess Status: Acute (2) Diverticulosis Status: Acute (3) Hyperglycemia Status: Acute (4) Perforation bowel Status: Acute Comment Review of Relevant I have reviewed the following items mukesh (where applicable) has been applied. Labs Laboratory Tests Test 04/23/18 12:00 04/23/18 16:56 04/23/18 20:36 04/24/18 07:55 Glucose (Fingerstick) 291 mg/dL (70-99) 229 mg/dL (70-99) 328 mg/dL (70-99) 271 mg/dL (70-99) Test 04/24/18 09:00 04/24/18 11:33 04/24/18 16:22 04/24/18 20:55 White Blood Count 13.7 x10^3/uL (4.0-11.0) Red Blood Count 3.95 x10^6/uL (4.30-5.70) Hemoglobin 11.4 g/dL (13.0-17.5) Hematocrit 34.7 % (39.0-53.0) Mean Corpuscular Volume 88 fL (79-100) Mean Corpuscular Hemoglobin 29 pg (25-35) Mean Corpuscular Hemoglobin Concent 33 g/dL (31-37) Red Cell Distribution Width 13.8 % (11.5-14.5) Platelet Count 327 x10^3/uL (140-400) Neutrophils (%) (Auto) 84 % (31-73) Lymphocytes (%) (Auto) 9 % (24-48) Monocytes (%) (Auto) 5 % (0-9) Eosinophils (%) (Auto) 2 % (0-3) Basophils (%) (Auto) 1 % (0-3) Neutrophils # (Auto) 11.5 x10^3uL (1.8-7.7) Lymphocytes # (Auto) 1.2 x10^3/uL (1.0-4.8) Monocytes # (Auto) 0.7 x10^3/uL (0.0-1.1) Eosinophils # (Auto) 0.2 x10^3/uL (0.0-0.7) Basophils # (Auto) 0.1 x10^3/uL (0.0-0.2) Sodium Level 135 mmol/L (136-145) Potassium Level 3.8 mmol/L (3.5-5.1) Chloride Level 100 mmol/L (98-107) Carbon Dioxide Level 25 mmol/L (21-32) Anion Gap 10 (6-14) Blood Urea Nitrogen 10 mg/dL (8-26) Creatinine 0.9 mg/dL (0.7-1.3) Estimated GFR (Cockcroft-Gault) 81.0 BUN/Creatinine Ratio 11 (6-20) Glucose Level 402 mg/dL (70-99) Calcium Level 7.9 mg/dL (8.5-10.1) Total Bilirubin 0.4 mg/dL (0.2-1.0) Aspartate Amino Transf (AST/SGOT) 41 U/L (15-37) Alanine Aminotransferase (ALT/SGPT) 109 U/L (16-63) Alkaline Phosphatase 92 U/L (46-116) Total Protein 5.7 g/dL (6.4-8.2) Albumin 2.2 g/dL (3.4-5.0) Albumin/Globulin Ratio 0.6 (1.0-1.7) Vancomycin Level Trough 8.6 mcg/mL (10.0-20.0) Vancomycin Last Dose Date 04/23/18 Vancomycin Last Dose Time 2100 Glucose (Fingerstick) 285 mg/dL (70-99) 207 mg/dL (70-99) 260 mg/dL (70-99) Test 04/25/18 04:00 04/25/18 08:10 White Blood Count 13.0 x10^3/uL (4.0-11.0) Red Blood Count 3.61 x10^6/uL (4.30-5.70) Hemoglobin 10.6 g/dL (13.0-17.5) Hematocrit 31.5 % (39.0-53.0) Mean Corpuscular Volume 87 fL (79-100) Mean Corpuscular Hemoglobin 29 pg (25-35) Mean Corpuscular Hemoglobin Concent 34 g/dL (31-37) Red Cell Distribution Width 14.0 % (11.5-14.5) Platelet Count 330 x10^3/uL (140-400) Neutrophils (%) (Auto) 78 % (31-73) Lymphocytes (%) (Auto) 12 % (24-48) Monocytes (%) (Auto) 7 % (0-9) Eosinophils (%) (Auto) 3 % (0-3) Basophils (%) (Auto) 0 % (0-3) Neutrophils # (Auto) 10.2 x10^3uL (1.8-7.7) Lymphocytes # (Auto) 1.6 x10^3/uL (1.0-4.8) Monocytes # (Auto) 0.9 x10^3/uL (0.0-1.1) Eosinophils # (Auto) 0.3 x10^3/uL (0.0-0.7) Basophils # (Auto) 0.0 x10^3/uL (0.0-0.2) Sodium Level 137 mmol/L (136-145) Potassium Level 3.6 mmol/L (3.5-5.1) Chloride Level 102 mmol/L (98-107) Carbon Dioxide Level 26 mmol/L (21-32) Anion Gap 9 (6-14) Blood Urea Nitrogen 11 mg/dL (8-26) Creatinine 0.8 mg/dL (0.7-1.3) Estimated GFR (Cockcroft-Gault) 92.8 Glucose Level 238 mg/dL (70-99) Calcium Level 8.2 mg/dL (8.5-10.1) Glucose (Fingerstick) 262 mg/dL (70-99) Laboratory Tests Test 04/24/18 11:33 04/24/18 16:22 04/24/18 20:55 04/25/18 04:00 Glucose (Fingerstick) 285 mg/dL (70-99) 207 mg/dL (70-99) 260 mg/dL (70-99) White Blood Count 13.0 x10^3/uL (4.0-11.0) Red Blood Count 3.61 x10^6/uL (4.30-5.70) Hemoglobin 10.6 g/dL (13.0-17.5) Hematocrit 31.5 % (39.0-53.0) Mean Corpuscular Volume 87 fL (79-100) Mean Corpuscular Hemoglobin 29 pg (25-35) Mean Corpuscular Hemoglobin Concent 34 g/dL (31-37) Red Cell Distribution Width 14.0 % (11.5-14.5) Platelet Count 330 x10^3/uL (140-400) Neutrophils (%) (Auto) 78 % (31-73) Lymphocytes (%) (Auto) 12 % (24-48) Monocytes (%) (Auto) 7 % (0-9) Eosinophils (%) (Auto) 3 % (0-3) Basophils (%) (Auto) 0 % (0-3) Neutrophils # (Auto) 10.2 x10^3uL (1.8-7.7) Lymphocytes # (Auto) 1.6 x10^3/uL (1.0-4.8) Monocytes # (Auto) 0.9 x10^3/uL (0.0-1.1) Eosinophils # (Auto) 0.3 x10^3/uL (0.0-0.7) Basophils # (Auto) 0.0 x10^3/uL (0.0-0.2) Sodium Level 137 mmol/L (136-145) Potassium Level 3.6 mmol/L (3.5-5.1) Chloride Level 102 mmol/L (98-107) Carbon Dioxide Level 26 mmol/L (21-32) Anion Gap 9 (6-14) Blood Urea Nitrogen 11 mg/dL (8-26) Creatinine 0.8 mg/dL (0.7-1.3) Estimated GFR (Cockcroft-Gault) 92.8 Glucose Level 238 mg/dL (70-99) Calcium Level 8.2 mg/dL (8.5-10.1) Test 2/3/19 08:10 Glucose (Fingerstick) 262 mg/dL (70-99) Microbiology 04/20/18 Blood Culture - Preliminary, Resulted NO GROWTH AFTER 4 DAYS 04/21/18 Anaerobic/Aerobic Culture, Resulted Pending 04/21/18 Anaerobic Culture Result 1 (AMBROCIO), Resulted Pending 04/21/18 Aerobic Culture - Final, Resulted 04/21/18 Aerobic Culture Result 1 (AMBROCIO) - Final, Resulted 04/21/18 Aerobic Culture Result 2 (AMBROCIO) - Final, Resulted 04/21/18 Aerobic Culture Result 3 (AMBROCIO) - Final, Resulted 04/21/18 Antimicrobic Susceptibility - Final, Resulted 04/21/18 Gram Stain - Final, Resulted 04/21/18 Gram Stain Result 1 (AMBROCIO) - Final, Resulted 04/21/18 Gram Stain Result 2 (AMBROCIO) - Final, Resulted 04/21/18 Gram Stain Result 3 (AMBROCIO) - Final, Resulted 04/21/18 Gram Stain Result 4 (AMBROCIO) - Final, Resulted Medications Current Medications Sodium Chloride 1,000 ml @ 2,190 mls/hr Q28M IV Last administered on at 19:39; Start 04/20/18 at 18:09; Stop 04/20/18 at 19:06; Status DC Piperacillin Sod/ Tazobactam Sod 4.5 gm/Sodium Chloride 100 ml @ 200 mls/hr 1X ONCE IV Last administered on 04/20/18at 18:58; Start 04/20/18 at 18:15; Stop 04/20/18 at 18:44; Status DC Vancomycin HCl (Vanco Per Pharmacy) 1 each 1X ONCE MC ; Start 04/20/18 at 18:15 ; Stop 04/20/18 at 18:16; Status Cancel Morphine Sulfate (Morphine Sulfate) 4 mg PRN Q15MIN PRN IV/SQ PAIN GREATER THAN 3/10; Start 04/20/18 at 18:15; Stop 04/21/18 at 18:14; Status DC Vancomycin HCl 1.5 gm/Sodium Chloride 500 ml @ 250 mls/hr 1X ONCE IV Last administered on 04/20/18at 19:35; Start 04/20/18 at 18:30; Stop 04/20/18 at 20:29 ; Status DC Insulin Human Regular (HumuLIN R VIAL) 8 unit 1X ONCE SQ Last administered on 04/20/18at 19:33; Start 04/20/18 at 19:15; Stop 04/20/18 at 19:29; Status DC Insulin Human Lispro (HumaLOG) 0-5 UNITS TIDWMEALS SQ Last administered on at 08:38; Start 04/21/18 at 08:00 Dextrose (Dextrose 50%-Water Syringe) 12.5 gm PRN Q15MIN PRN IV SEE COMMENTS; Start 04/20/18 at 19:45 Ondansetron HCl (Zofran) 4 mg PRN Q8HRS PRN IV NAUSEA/VOMITING; Start 04/20/18 at 20:00; Stop 04/21/18 at 19:59; Status DC Morphine Sulfate (Morphine Sulfate) 4 mg PRN Q2HR PRN IV PAIN Last administered on 04/21/18at 07:29; Start 04/20/18 at 20:00; Stop 04/21/18 at 19:59 ; Status DC Sodium Chloride 1,000 ml @ 125 mls/hr 1X ONCE IV ; Start 04/20/18 at 20:00; Stop 04/21/18 at 03:59; Status DC Sodium Chloride 1,000 ml @ 75 mls/hr [id number] IV Last administered on at 07:00; Start 04/20/18 at 21:30; Stop 04/25/18 at 06:04; Status DC Insulin Human Lispro (HumaLOG) 5 units 1X ONCE SQ Last administered on at 21:57; Start 04/20/18 at 21:30; Stop 04/20/18 at 21:31; Status DC Sodium Chloride 1,000 ml @ 1,000 mls/hr 1X ONCE IV Last administered on at 02:01; Start 04/21/18 at 02:00; Stop 04/21/18 at 02:59; Status DC Norepinephrine Bitartrate 250 ml @ 1.875 mls/ hr CONT PRN IV SEE I/O RECORD Last administered on 04/21/18at 02:27; Start 04/21/18 at 02:00; Stop 04/23/18 at 14:18; Status DC Piperacillin Sod/ Tazobactam Sod 3.375 gm/Sodium Chloride 50 ml @ 100 mls/hr Q6HRS IV Last administered on 04/25/18 05:45; Start 04/21/18 at 08:00 Micafungin Sodium 100 mg/Dextrose 100 ml @ 100 mls/hr Q24H IV Last administered on 04/25/18 08:26; Start 04/21/18 at 08:00 Vancomycin HCl (Vanco Per Pharmacy) 1 each PRN DAILY PRN MC SEE COMMENTS Last administered on 04/24/18at 11:19; Start 04/21/18 at 09:15 Vancomycin HCl 1 gm/Sodium Chloride 250 ml @ 250 mls/hr Q24H IV Last administered on 04/21/18at 20:03; Start 04/21/18 at 19:30; Stop 04/22/18 at 20:16 ; Status DC Vancomycin HCl (Vancomycin Trough Level) 1 each 1X ONCE MC ; Start 04/22/18 at 19:00; Stop 04/22/18 at 19:01; Status DC Aspirin (Ecotrin) 81 mg DAILYWBKFT PO Last administered on 04/25/18 08:28; Start 04/21/18 at 10:00 Atorvastatin Calcium (Lipitor) 40 mg QHS PO Last administered on 04/24/18 21:33 ; Start 04/21/18 at 21:00 Lidocaine/Sodium Bicarbonate (Buffered Lidocaine 1%) 3 ml STK-MED ONCE .ROUTE ; Start 04/21/18 at 10:17; Stop 04/21/18 at 10:18; Status DC Pantoprazole Sodium (PROTONIX VIAL for IV PUSH) 40 mg DAILYAC IVP Last administered on 04/22/18at 07:51; Start 04/21/18 at 11:00; Stop 04/22/18 at 12:39 ; Status DC Midazolam HCl (Versed) 2 mg STK-MED ONCE .ROUTE ; Start 04/21/18 at 10:53; Stop 04/21/18 at 10:55; Status DC Fentanyl Citrate (Fentanyl 2ml Vial) 100 mcg STK-MED ONCE .ROUTE ; Start at 10:53; Stop 04/21/18 at 10:56; Status DC Lidocaine/Sodium Bicarbonate (Buffered Lidocaine 1%) 3 ml 1X ONCE IJ Last administered on 04/21/18at 11:37; Start 04/21/18 at 11:00; Stop 04/21/18 at 11:02 ; Status DC Midazolam HCl (Versed) 2 mg 1X ONCE IV Last administered on 04/21/18at 11:37; Start 04/21/18 at 11:00; Stop 04/21/18 at 11:02; Status DC Fentanyl Citrate (Fentanyl 2ml Vial) 100 mcg 1X ONCE IV Last administered on at 11:37; Start 04/21/18 at 11:00; Stop 04/21/18 at 11:02; Status DC Insulin Human Lispro (HumaLOG) 0-7 UNITS TIDWMEALS SQ ; Start 04/21/18 at 17:00 ; Status UNV Dextrose (Dextrose 50%-Water Syringe) 12.5 gm PRN Q15MIN PRN IV SEE COMMENTS; Start 04/21/18 at 16:30; Status UNV Amino Acids/ Glycerin/ Electrolytes 1,000 ml @ 80 mls/hr [id number] IV Last administered on 04/25/18at 08:27; Start 04/21/18 at 17:00 Saliva Substitute (Biotene Moisturizing Mouth) 2 spray PRN Q15MIN PRN PO DRY MOUTH; Start 04/21/18 at 16:30 Sodium Chloride 1,000 ml @ 1,000 mls/hr 1X ONCE IV Last administered on at 16:30; Start 04/21/18 at 16:30; Stop 04/21/18 at 17:29; Status DC Morphine Sulfate (Morphine Sulfate) 4 mg PRN Q2HR PRN IV SEVERE PAIN Last administered on 04/21/18at 21:35; Start 04/21/18 at 21:30 Insulin Glargine (Lantus) 8 units DAILY10 SQ Last administered on 04/23/18at 10: 13; Start 04/22/18 at 10:00; Stop 04/24/18 at 10:00; Status DC Pantoprazole Sodium (Protonix) 40 mg DAILYAC PO Last administered on 04/25/18 05:44; Start 04/23/18 at 07:30 Clopidogrel Bisulfate (Plavix) 75 mg DAILYWBKFT PO Last administered on 08:33; Start 04/22/18 at 17:00 Vancomycin HCl 750 mg/Sodium Chloride 250 ml @ 250 mls/hr Q12H IV Last administered on 2/1/19at 20:51; Start 04/22/18 at 21:00; Stop 04/24/18 at 11:08; Status DC Vancomycin HCl (Vancomycin Trough Level) 1 each 1X ONCE MC Last administered on 04/24/18at 08:30; Start 04/24/18 at 08:30; Stop 04/24/18 at 08:31; Status DC Zolpidem Tartrate (Ambien) 5 mg PRN QHS PRN PO INSOMNIA Last administered on at 21:28; Start 04/22/18 at 21:00 Insulin Human Lispro (HumaLOG) 2 units 1X ONCE SQ Last administered on at 22:30; Start 04/22/18 at 23:00; Stop 04/22/18 at 23:01; Status DC Insulin Human Lispro (HumaLOG) 3 units 1X ONCE SQ Last administered on at 21:00; Start 04/23/18 at 21:00; Stop 04/23/18 at 21:01; Status DC Insulin Glargine (Lantus) 12 units DAILY10 SQ Last administered on 04/24/18at 10: 08; Start 04/24/18 at 10:00 Vancomycin HCl 1 gm/Sodium Chloride 250 ml @ 250 mls/hr Q12H IV Last administered on 04/24/18at 23:16; Start 04/24/18 at 11:30 Vancomycin HCl (Vancomycin Trough Level) 1 each 1X ONCE MC ; Start 04/25/18 at 23:00; Stop 04/25/18 at 23:01 Lactobacillus Rhamnosus (Culturelle) 1 cap BID PO Last administered on at 08:27; Start 04/24/18 at 21:00 Amlodipine Besylate (Norvasc) 5 mg DAILY PO Last administered on 04/25/18at 08:33 ; Start 04/24/18 at 16:00 Aspirin (Ecotrin) 81 mg DAILYWBKFT PO ; Start 04/24/18 at 16:00; Status Cancel Atorvastatin Calcium (Lipitor) 40 mg QHS PO ; Start 04/24/18 at 21:00; Status Cancel Carvedilol (Coreg) 12.5 mg BIDWMEALS PO Last administered on 04/25/18at 08:32; Start 04/24/18 at 17:00 Vitamin D (Vitamin D3) 2,000 unit DAILY PO Last administered on 04/25/18at 08:27 ; Start 04/24/18 at 16:00 Albuterol Sulfate (Ventolin Neb Soln) 2.5 mg RTQID NEB Last administered on 04/25at 08:33; Start 04/24/18 at 20:00 Insulin Human Lispro (HumaLOG) 2 units 1X ONCE SQ Last administered on at 21:44; Start 04/24/18 at 21:30; Stop 04/24/18 at 21:31; Status DC Active Scripts Active Lipitor (Atorvastatin Calcium) 40 Mg Tablet 1 Tab PO QHS Aspirin Ec (Aspirin) 81 Mg Tablet. 81 Mg PO DAILYWBKFT Brilinta (Ticagrelor) 90 Mg Tablet 90 Mg PO BID Reported Soma (Carisoprodol) 350 Mg Tablet 1 Tab PO BID Omeprazole 40 Mg Capsule.dr 1 Cap PO DAILY Symbicort 80-4.5 Mcg Inhaler (Budesonide/Formoterol Fumarate) 10.2 Gm Hfa.aer.ad 1 Puff IH BID Metformin Hcl 500 Mg Tablet 500 Mg PO BIDWMEALS Amaryl (Glimepiride) 4 Mg Tablet 1 Tab PO DAILY Amlodipine Besylate 5 Mg Tablet 5 Mg PO DAILY Carvedilol (Carvedilol) 12.5 Mg Tablet 1 Tab PO BID Colestipol Hcl 1 Gm Tablet 2 Gm PO 1X Magnesium Oxide 400 Mg Tablet 250 Tab PO DAILY Vitamin D3 (Cholecalciferol (Vitamin D3)) 1,000 Unit Tablet 2,000 Tab PO DAILY Vitals/I & O Vital Sign - Last 24 Hours 04/24/18 04/24/18 04/24/18 04/24/18 11:00 15:00 17:10 19:55 Temp 98.1 97.9 98.1 97.9 Pulse 93 94 94 Resp 16 16 B/P (MAP) 136/87 (103) 105/51 (69) 105/51 Pulse Ox 96 95 O2 Delivery Room Air Room Air Room Air 04/24/18 04/24/18 04/24/18 04/25/18 20:00 20:27 23:21 03:19 Temp 98.3 98.3 98.1 98.3 98.3 98.1 Pulse 59 83 86 Resp 16 16 16 B/P (MAP) 141/88 (105) 102/55 (71) 124/65 (84) Pulse Ox 92 95 94 O2 Delivery Room Air Room Air Room Air Room Air 04/25/18 04/25/18 04/25/18 04/25/18 07:00 08:32 08:33 08:34 Temp 97.9 97.9 Pulse 92 80 86 Resp 16 B/P (MAP) 135/74 (94) 135/74 135/74 Pulse Ox 94 96 O2 Delivery Room Air Room Air Intake and Output 04/24/18 04/24/18 04/25/18 15:01 23:01 07:01 Intake Total 1800 ml 500 ml Balance 1800 ml 500 ml Nutrition Consultation Dietary Evaluation: Recommendations by RD: PPN/TPN Comments: REC ADA diet per 's request, honor food preferences Continue PPN until PO intake of meals >75% est needs Expected Outcomes/Goals: Initiation of nutrition within 24-48 hrs - met, new goal established New goal 04/23: PO intake to meet >75% est needs Interpretation of weight loss: >5% in 1 month Malnutrition Findings: Food and Nutrition Intake (Mod: <75% est energy req 7days Weight Status: Appropriate ASHIA DEVRIES MD Apr 25, 2018 09:51
[2018-04-25 11:00] VITALS: BP 134/75
--- NOTE | 2018-04-25 11:11 | PDOC ---
Infectious Disease Note Subjective Subjective Walks to the bathroom and back Pain controlled Eating No F/C/S/SOA/Rash/dysuria/N/V/D ROS ROS per HPI Vital Sign Vital Signs Vital Signs Date Time Temp Pulse Resp B/P (MAP) Pulse Ox O2 Delivery O2 Flow Rate FiO2 04/25/18 08:34 96 Room Air 04/25/18 08:33 86 135/74 04/25/18 07:00 97.9 16 97.9 Physical Exam PHYSICAL EXAM GENERAL: Propped up in bed, alert, NAD HEENT: Pupils equal and reactive. Oral cavity, pharynx is clear. NECK: Supple, no JVD. LUNGS: Clear to auscultation, soft upper airway wheeze HEART: S1, S2. ABDOMEN: Obese, soft. BS present. JEREMY in place with some purulent material EXTREMITIES: No clubbing, cyanosis or gross edema. SKIN: Warm to touch without signs of rash. NEUROLOGIC: Alert, nonfocal and appropriate. IV Labs Lab Laboratory Tests Test 04/24/18 11:33 04/24/18 16:22 04/24/18 20:55 04/25/18 04:00 Glucose (Fingerstick) 285 mg/dL (70-99) 207 mg/dL (70-99) 260 mg/dL (70-99) White Blood Count 13.0 x10^3/uL (4.0-11.0) Red Blood Count 3.61 x10^6/uL (4.30-5.70) Hemoglobin 10.6 g/dL (13.0-17.5) Hematocrit 31.5 % (39.0-53.0) Mean Corpuscular Volume 87 fL (79-100) Mean Corpuscular Hemoglobin 29 pg (25-35) Mean Corpuscular Hemoglobin Concent 34 g/dL (31-37) Red Cell Distribution Width 14.0 % (11.5-14.5) Platelet Count 330 x10^3/uL (140-400) Neutrophils (%) (Auto) 78 % (31-73) Lymphocytes (%) (Auto) 12 % (24-48) Monocytes (%) (Auto) 7 % (0-9) Eosinophils (%) (Auto) 3 % (0-3) Basophils (%) (Auto) 0 % (0-3) Neutrophils # (Auto) 10.2 x10^3uL (1.8-7.7) Lymphocytes # (Auto) 1.6 x10^3/uL (1.0-4.8) Monocytes # (Auto) 0.9 x10^3/uL (0.0-1.1) Eosinophils # (Auto) 0.3 x10^3/uL (0.0-0.7) Basophils # (Auto) 0.0 x10^3/uL (0.0-0.2) Sodium Level 137 mmol/L (136-145) Potassium Level 3.6 mmol/L (3.5-5.1) Chloride Level 102 mmol/L (98-107) Carbon Dioxide Level 26 mmol/L (21-32) Anion Gap 9 (6-14) Blood Urea Nitrogen 11 mg/dL (8-26) Creatinine 0.8 mg/dL (0.7-1.3) Estimated GFR (Cockcroft-Gault) 92.8 Glucose Level 238 mg/dL (70-99) Calcium Level 8.2 mg/dL (8.5-10.1) Test 04/25/18 08:10 Glucose (Fingerstick) 262 mg/dL (70-99) Micro BLOOD CULTURE Preliminary AEROBIC RES 1 Final Escherichia coli AEROBIC RES 2 Final Klebsiella aerogenes AEROBIC RES 3 Final Mixed skin mireya ANTIMICROBIAL SUSCEPTIBILITY Final MICS are expressed in micrograms per mL Antibiotic RSLT#1 RSLT#2 RSLT#3 Amoxicillin/Clavulanic Acid S =4 R>=32 Ampicillin S =4 Cefazolin R>=64 Cefepime S<=0.12 S<=0.12 Ceftriaxone S<=0.25 S<=0.25 Cefuroxime S =4 R =R Ciprofloxacin R>=4 S<=0.25 Ertapenem S<=0.12 S<=0.12 Gentamicin S<=1 S<=1 Imipenem S<=0.25 S =1 Levofloxacin R>=8 S<=0.12 Meropenem S<=0.25 S<=0.25 Piperacillin/Tazobactam S<=4 Tetracycline S<=1 S<=1 Tobramycin S<=1 S<=1 Trimethoprim/Sulfa S<=20 S<=20 GRAM STAIN RES 4 Final Yeast isolated. Objective Assessment Sepsis - POA Off Levophed now. C-diff neg/MRSA neg - better Leukocytosis Perforated viscous Abd abscesses - S/p IR 04/21 gram stain with E. coli (R quinolones), Klebsiella so far (yeast on gram stain) Transaminitis - improved DM Plan Plan of Care Cont Vanc, Zosyn and Micafungin Trough 8.6 Probiotics F/u labs/cults Attending Co-Sign The patient was seen and interviewed as well as examined at the bedside. The chart was reviewed. The case was discussed. Agree with the plan of care. LIDIA GARCIAS APRN Apr 25, 2018 11:11 ALEXA DUMONT MD Apr 25, 2018 13:16
[2018-04-25] MEDS: VANCOMYCIN 1 GM in IV NORMAL SALINE 250ML 250 ML IV SCH (12:04)
[2018-04-25] MEDS: INSULIN GLARGINE 300 UNITS/3 ML INSULN.PEN. SQ SCH (12:09)
[2018-04-25 15:00] VITALS: BP 118/69
[2018-04-25 19:52] VITALS: BP 123/63
--- NOTE | 2018-04-25 20:45 | NUR ---
RN paged Dr. Negrete regarding patients blood glucose of 325 and according to sliding scale patient would get 3 units, RN asked to get it increased. Orders were received to administer 6 units of Humalog for a one time order. Will continue to monitor.
[2018-04-25] MEDS ORDERED: INSULIN LISPRO 300 UNITS/3 ML INSULN.PEN. SQ ONE (22:00)
[2018-04-25] MEDS: ATORVASTATIN CALCIUM 40 MG TABLET. PO SCH (22:01)
[2018-04-25 23:11] VITALS: BP 118/68
[2018-04-26] MEDS: PIPERACILLIN/TAZOBACTAM 3.375 GM in IV NORMAL SALINE 50ML 50 ML IV SCH ×3 (00:16→13:02)
--- NOTE | 2018-04-26 01:27 | NUR ---
Patients glucose was rechecked 0120 and it dropped from 325 to 193. RN will continue to monitor.
[2018-04-26 03:47] VITALS: BP 126/70
[2018-04-26] MEDS: PANTOPRAZOLE 40 MG TABLET.DR. PO SCH (05:56)
[2018-04-26 07:09] LABS: BASO % 0 % (0-3); EOS # 0.3 x10^3/uL (0.0-0.7); EOS % 3 % (0-3); HEMATOCRIT 34.1 % (39.0-53.0); LYMPH # 1.6 x10^3/uL (1.0-4.8); LYMPH % 14 % (24-48); MEAN CORPUSCULAR HEMOGLOBIN 29 pg (25-35); MEAN CORPUSCULAR HGB CONC 32 g/dL (31-37); MEAN CORPUSCULAR VOLUME 88 fL (79-100); MONO % 9 % (0-9); NEUT # 8.3 x10^3uL (1.8-7.7); NEUT % 74 % (31-73); PLATELET COUNT 362 x10^3/uL (140-400); RED BLOOD COUNT 3.86 x10^6/uL (4.30-5.70); RED CELL DISTRIBUTION WIDTH 13.9 % (11.5-14.5); WHITE BLOOD COUNT 11.2 x10^3/uL (4.0-11.0)
[2018-04-26 07:19] LABS: ALBUMIN 2.1 g/dL (3.4-5.0); ALBUMIN/GLOBULIN RATIO 0.6 (1.0-1.7); CALCIUM 8.6 mg/dL (8.5-10.1); CREATININE 0.8 mg/dL (0.7-1.3); GFR 92.8; POTASSIUM 3.3 mmol/L (3.5-5.1); TOTAL BILIRUBIN 0.4 mg/dL (0.2-1.0); TOTAL PROTEIN 5.9 g/dL (6.4-8.2)
[2018-04-26] MEDS: ALBUTEROL SULFATE 2.5 MG/3 ML NEBU. NEB SCH ×2 (07:37→11:05)
[2018-04-26 08:00] VITALS: BP 130/82
[2018-04-26] MEDS: CARVEDILOL 12.5 MG TABLET. PO SCH (08:22)
[2018-04-26] MEDS: CLOPIDOGREL BISULFATE 75 MG TABLET PO SCH (08:22)
[2018-04-26] MEDS: ASPIRIN ENTERIC COATED 81 MG TABLET.DR. PO SCH (08:22)
[2018-04-26] MEDS: LACTOBACILLUS RHAMNOSUS GG 1 CAPSULE. PO SCH (08:22)
[2018-04-26] MEDS: MICAFUNGIN 100 MG in IV DEXTROSE 5% 100ML 100 ML IV SCH (08:23)
[2018-04-26] MEDS: amLODIPine BESYLATE 5 MG TABLET PO SCH (08:23)
[2018-04-26] MEDS: CHOLECALCIFEROL (VITAMIN D3) 1,000 UNIT TABLET PO SCH (08:23)
[2018-04-26] MEDS: INSULIN LISPRO 300 UNITS/3 ML INSULN.PEN. SQ SCH ×2 (08:27→13:05)
--- NOTE | 2018-04-26 09:11 | PDOC ---
Infectious Disease Note Subjective Subjective pt is feeling good ROS ROS no n/v/d/sob/fever Vital Sign Vital Signs Vital Signs Date Time Temp Pulse Resp B/P (MAP) Pulse Ox O2 Delivery O2 Flow Rate FiO2 04/26/18 08:23 89 130/82 04/26/18 08:00 97.7 18 98 Room Air 97.7 04/25/18 21:39 2.0 Physical Exam PHYSICAL EXAM GENERAL: Propped up in bed, alert, NAD HEENT: Pupils equal and reactive. Oral cavity, pharynx is clear. NECK: Supple, no JVD. LUNGS: Clear to auscultation, soft upper airway wheeze HEART: S1, S2. ABDOMEN: Obese, soft. BS present. JEREMY in place with some purulent material EXTREMITIES: No clubbing, cyanosis or gross edema. SKIN: Warm to touch without signs of rash. NEUROLOGIC: Alert, nonfocal and appropriate. IV Labs Lab Laboratory Tests Test 04/25/18 11:33 04/25/18 16:01 04/25/18 20:35 04/26/18 01:18 Glucose (Fingerstick) 330 mg/dL (70-99) 402 mg/dL (70-99) 325 mg/dL (70-99) 193 mg/dL (70-99) Test 04/26/18 06:37 04/26/18 07:29 White Blood Count 11.2 x10^3/uL (4.0-11.0) Red Blood Count 3.86 x10^6/uL (4.30-5.70) Hemoglobin 11.0 g/dL (13.0-17.5) Hematocrit 34.1 % (39.0-53.0) Mean Corpuscular Volume 88 fL (79-100) Mean Corpuscular Hemoglobin 29 pg (25-35) Mean Corpuscular Hemoglobin Concent 32 g/dL (31-37) Red Cell Distribution Width 13.9 % (11.5-14.5) Platelet Count 362 x10^3/uL (140-400) Neutrophils (%) (Auto) 74 % (31-73) Lymphocytes (%) (Auto) 14 % (24-48) Monocytes (%) (Auto) 9 % (0-9) Eosinophils (%) (Auto) 3 % (0-3) Basophils (%) (Auto) 0 % (0-3) Neutrophils # (Auto) 8.3 x10^3uL (1.8-7.7) Lymphocytes # (Auto) 1.6 x10^3/uL (1.0-4.8) Monocytes # (Auto) 1.0 x10^3/uL (0.0-1.1) Eosinophils # (Auto) 0.3 x10^3/uL (0.0-0.7) Basophils # (Auto) 0.0 x10^3/uL (0.0-0.2) Sodium Level 139 mmol/L (136-145) Potassium Level 3.3 mmol/L (3.5-5.1) Chloride Level 102 mmol/L (98-107) Carbon Dioxide Level 29 mmol/L (21-32) Anion Gap 8 (6-14) Blood Urea Nitrogen 9 mg/dL (8-26) Creatinine 0.8 mg/dL (0.7-1.3) Estimated GFR (Cockcroft-Gault) 92.8 BUN/Creatinine Ratio 11 (6-20) Glucose Level 209 mg/dL (70-99) Calcium Level 8.6 mg/dL (8.5-10.1) Total Bilirubin 0.4 mg/dL (0.2-1.0) Aspartate Amino Transf (AST/SGOT) 38 U/L (15-37) Alanine Aminotransferase (ALT/SGPT) 76 U/L (16-63) Alkaline Phosphatase 75 U/L (46-116) Total Protein 5.9 g/dL (6.4-8.2) Albumin 2.1 g/dL (3.4-5.0) Albumin/Globulin Ratio 0.6 (1.0-1.7) Glucose (Fingerstick) 188 mg/dL (70-99) Micro BLOOD CULTURE Preliminary neg Abscess culture : AEROBIC RES 1 Final Escherichia coli AEROBIC RES 2 Final Klebsiella aerogenes AEROBIC RES 3 Final Mixed skin mireya ANTIMICROBIAL SUSCEPTIBILITY Final MICS are expressed in micrograms per mL Antibiotic RSLT#1 RSLT#2 RSLT#3 Amoxicillin/Clavulanic Acid S =4 R>=32 Ampicillin S =4 Cefazolin R>=64 Cefepime S<=0.12 S<=0.12 Ceftriaxone S<=0.25 S<=0.25 Cefuroxime S =4 R =R Ciprofloxacin R>=4 S<=0.25 Ertapenem S<=0.12 S<=0.12 Gentamicin S<=1 S<=1 Imipenem S<=0.25 S =1 Levofloxacin R>=8 S<=0.12 Meropenem S<=0.25 S<=0.25 Piperacillin/Tazobactam S<=4 Tetracycline S<=1 S<=1 Tobramycin S<=1 S<=1 Trimethoprim/Sulfa S<=20 S<=20 GRAM STAIN RES 4 Final Yeast isolated. Objective Assessment Sepsis - POA Off Levophed now. C-diff neg/MRSA neg - better Leukocytosis Perforated viscous Abd abscesses - S/p IR 04/21 gram stain with E. coli (R quinolones), Klebsiella so far (yeast on gram stain) Transaminitis - improved DM Plan Plan of Care Cont Zosyn and Micafungin will get CT , depending on that pt to go home on iv vs oral drain out pt has not been documented Probiotics F/u labs/cults ALEXA DUMONT MD Apr 26, 2018 09:11
--- NOTE | 2018-04-26 10:11 | PDOC ---
PROGRESS NOTES Chief Complaint Chief Complaint impression 1. Acute abdominal pain, sepsis POA, with perforated bowel, diverticula, CT 2/[address] with some purulent material POD # 5 CT-guided abdominal abscess drain STILL WITH RED TINGED MATERIAL 2. abdominal abscesses 3, diabetes 2, hyperglycemia, CONTROL poor lantus added 12 units hs sq, now improving off PPN 4. CAD post stent 2018 5. severe malnutrition, POA 6. wheezing 7. S/p IR 04/21 gram stain with E. coli (R quinolones), Klebsiella (yeast on gram stain) 8. hypokalemia on replacement History of Present Illness History of Present Illness cont broad abx drain working well, fluid looks less dark, , JEREMY in place with some purulent material pain much better, gen surg and GI and ID following better glucose control needed, on SSI, add lantus , IMPROVING Vitals Vitals Vital Signs Date Time Temp Pulse Resp B/P (MAP) Pulse Ox O2 Delivery O2 Flow Rate FiO2 04/26/18 08:23 89 130/82 04/26/18 08:00 97.7 18 98 Room Air 97.7 04/25/18 21:39 2.0 Physical Exam Physical Exam GENERAL: Propped up in bed, alert, NAD HEENT: Pupils equal and reactive. Oral cavity, pharynx is clear. NECK: Supple, no JVD. LUNGS: Clear to auscultation, HEART: S1, S2. ABDOMEN: Obese, soft. BS present. JEREMY in place with some purulent material IMPROVED EXTREMITIES: No clubbing, cyanosis or gross edema. SKIN: without signs of rash. NEUROLOGIC: Alert, nonfocal and appropriate. IV General: Alert, Oriented X3, Cooperative, No acute distress Heart: Regular rate (SR no ectopies), Normal S1, Normal S2, No murmurs, Other ( 2/6 systolic murmur to LLS border) Lungs: Clear, Wheezing Abdomen: Normal bowel sounds, Soft, Other (drain purulent LESS) Extremities: No clubbing, No cyanosis, No edema, No tenderness/swelling Skin: No breakdown, No significant lesion Labs LABS Laboratory Tests Test 04/25/18 11:33 04/25/18 16:01 04/25/18 20:35 04/26/18 01:18 Glucose (Fingerstick) 330 mg/dL (70-99) 402 mg/dL (70-99) 325 mg/dL (70-99) 193 mg/dL (70-99) Test 04/26/18 06:37 04/26/18 07:29 White Blood Count 11.2 x10^3/uL (4.0-11.0) Red Blood Count 3.86 x10^6/uL (4.30-5.70) Hemoglobin 11.0 g/dL (13.0-17.5) Hematocrit 34.1 % (39.0-53.0) Mean Corpuscular Volume 88 fL (79-100) Mean Corpuscular Hemoglobin 29 pg (25-35) Mean Corpuscular Hemoglobin Concent 32 g/dL (31-37) Red Cell Distribution Width 13.9 % (11.5-14.5) Platelet Count 362 x10^3/uL (140-400) Neutrophils (%) (Auto) 74 % (31-73) Lymphocytes (%) (Auto) 14 % (24-48) Monocytes (%) (Auto) 9 % (0-9) Eosinophils (%) (Auto) 3 % (0-3) Basophils (%) (Auto) 0 % (0-3) Neutrophils # (Auto) 8.3 x10^3uL (1.8-7.7) Lymphocytes # (Auto) 1.6 x10^3/uL (1.0-4.8) Monocytes # (Auto) 1.0 x10^3/uL (0.0-1.1) Eosinophils # (Auto) 0.3 x10^3/uL (0.0-0.7) Basophils # (Auto) 0.0 x10^3/uL (0.0-0.2) Sodium Level 139 mmol/L (136-145) Potassium Level 3.3 mmol/L (3.5-5.1) Chloride Level 102 mmol/L (98-107) Carbon Dioxide Level 29 mmol/L (21-32) Anion Gap 8 (6-14) Blood Urea Nitrogen 9 mg/dL (8-26) Creatinine 0.8 mg/dL (0.7-1.3) Estimated GFR (Cockcroft-Gault) 92.8 BUN/Creatinine Ratio 11 (6-20) Glucose Level 209 mg/dL (70-99) Calcium Level 8.6 mg/dL (8.5-10.1) Total Bilirubin 0.4 mg/dL (0.2-1.0) Aspartate Amino Transf (AST/SGOT) 38 U/L (15-37) Alanine Aminotransferase (ALT/SGPT) 76 U/L (16-63) Alkaline Phosphatase 75 U/L (46-116) Total Protein 5.9 g/dL (6.4-8.2) Albumin 2.1 g/dL (3.4-5.0) Albumin/Globulin Ratio 0.6 (1.0-1.7) Glucose (Fingerstick) 188 mg/dL (70-99) Assessment and Plan Assessmemt and Plan Problems Medical Problems: (1) Abdominal abscess Status: Acute (2) Diverticulosis Status: Acute (3) Hyperglycemia Status: Acute (4) Perforation bowel Status: Acute Comment Review of Relevant I have reviewed the following items mukesh (where applicable) has been applied. Labs Laboratory Tests Test 04/24/18 11:33 04/24/18 16:22 04/24/18 20:55 04/25/18 04:00 Glucose (Fingerstick) 285 mg/dL (70-99) 207 mg/dL (70-99) 260 mg/dL (70-99) White Blood Count 13.0 x10^3/uL (4.0-11.0) Red Blood Count 3.61 x10^6/uL (4.30-5.70) Hemoglobin 10.6 g/dL (13.0-17.5) Hematocrit 31.5 % (39.0-53.0) Mean Corpuscular Volume 87 fL (79-100) Mean Corpuscular Hemoglobin 29 pg (25-35) Mean Corpuscular Hemoglobin Concent 34 g/dL (31-37) Red Cell Distribution Width 14.0 % (11.5-14.5) Platelet Count 330 x10^3/uL (140-400) Neutrophils (%) (Auto) 78 % (31-73) Lymphocytes (%) (Auto) 12 % (24-48) Monocytes (%) (Auto) 7 % (0-9) Eosinophils (%) (Auto) 3 % (0-3) Basophils (%) (Auto) 0 % (0-3) Neutrophils # (Auto) 10.2 x10^3uL (1.8-7.7) Lymphocytes # (Auto) 1.6 x10^3/uL (1.0-4.8) Monocytes # (Auto) 0.9 x10^3/uL (0.0-1.1) Eosinophils # (Auto) 0.3 x10^3/uL (0.0-0.7) Basophils # (Auto) 0.0 x10^3/uL (0.0-0.2) Sodium Level 137 mmol/L (136-145) Potassium Level 3.6 mmol/L (3.5-5.1) Chloride Level 102 mmol/L (98-107) Carbon Dioxide Level 26 mmol/L (21-32) Anion Gap 9 (6-14) Blood Urea Nitrogen 11 mg/dL (8-26) Creatinine 0.8 mg/dL (0.7-1.3) Estimated GFR (Cockcroft-Gault) 92.8 Glucose Level 238 mg/dL (70-99) Calcium Level 8.2 mg/dL (8.5-10.1) Test 04/25/18 08:10 04/25/18 11:33 04/25/18 16:01 04/25/18 20:35 Glucose (Fingerstick) 262 mg/dL (70-99) 330 mg/dL (70-99) 402 mg/dL (70-99) 325 mg/dL (70-99) Test 04/26/18 01:18 04/26/18 06:37 04/26/18 07:29 Glucose (Fingerstick) 193 mg/dL (70-99) 188 mg/dL (70-99) White Blood Count 11.2 x10^3/uL (4.0-11.0) Red Blood Count 3.86 x10^6/uL (4.30-5.70) Hemoglobin 11.0 g/dL (13.0-17.5) Hematocrit 34.1 % (39.0-53.0) Mean Corpuscular Volume 88 fL (79-100) Mean Corpuscular Hemoglobin 29 pg (25-35) Mean Corpuscular Hemoglobin Concent 32 g/dL (31-37) Red Cell Distribution Width 13.9 % (11.5-14.5) Platelet Count 362 x10^3/uL (140-400) Neutrophils (%) (Auto) 74 % (31-73) Lymphocytes (%) (Auto) 14 % (24-48) Monocytes (%) (Auto) 9 % (0-9) Eosinophils (%) (Auto) 3 % (0-3) Basophils (%) (Auto) 0 % (0-3) Neutrophils # (Auto) 8.3 x10^3uL (1.8-7.7) Lymphocytes # (Auto) 1.6 x10^3/uL (1.0-4.8) Monocytes # (Auto) 1.0 x10^3/uL (0.0-1.1) Eosinophils # (Auto) 0.3 x10^3/uL (0.0-0.7) Basophils # (Auto) 0.0 x10^3/uL (0.0-0.2) Sodium Level 139 mmol/L (136-145) Potassium Level 3.3 mmol/L (3.5-5.1) Chloride Level 102 mmol/L (98-107) Carbon Dioxide Level 29 mmol/L (21-32) Anion Gap 8 (6-14) Blood Urea Nitrogen 9 mg/dL (8-26) Creatinine 0.8 mg/dL (0.7-1.3) Estimated GFR (Cockcroft-Gault) 92.8 BUN/Creatinine Ratio 11 (6-20) Glucose Level 209 mg/dL (70-99) Calcium Level 8.6 mg/dL (8.5-10.1) Total Bilirubin 0.4 mg/dL (0.2-1.0) Aspartate Amino Transf (AST/SGOT) 38 U/L (15-37) Alanine Aminotransferase (ALT/SGPT) 76 U/L (16-63) Alkaline Phosphatase 75 U/L (46-116) Total Protein 5.9 g/dL (6.4-8.2) Albumin 2.1 g/dL (3.4-5.0) Albumin/Globulin Ratio 0.6 (1.0-1.7) Laboratory Tests Test 04/25/18 11:33 04/25/18 16:01 04/25/18 20:35 04/26/18 01:18 Glucose (Fingerstick) 330 mg/dL (70-99) 402 mg/dL (70-99) 325 mg/dL (70-99) 193 mg/dL (70-99) Test 04/26/18 06:37 04/26/18 07:29 White Blood Count 11.2 x10^3/uL (4.0-11.0) Red Blood Count 3.86 x10^6/uL (4.30-5.70) Hemoglobin 11.0 g/dL (13.0-17.5) Hematocrit 34.1 % (39.0-53.0) Mean Corpuscular Volume 88 fL (79-100) Mean Corpuscular Hemoglobin 29 pg (25-35) Mean Corpuscular Hemoglobin Concent 32 g/dL (31-37) Red Cell Distribution Width 13.9 % (11.5-14.5) Platelet Count 362 x10^3/uL (140-400) Neutrophils (%) (Auto) 74 % (31-73) Lymphocytes (%) (Auto) 14 % (24-48) Monocytes (%) (Auto) 9 % (0-9) Eosinophils (%) (Auto) 3 % (0-3) Basophils (%) (Auto) 0 % (0-3) Neutrophils # (Auto) 8.3 x10^3uL (1.8-7.7) Lymphocytes # (Auto) 1.6 x10^3/uL (1.0-4.8) Monocytes # (Auto) 1.0 x10^3/uL (0.0-1.1) Eosinophils # (Auto) 0.3 x10^3/uL (0.0-0.7) Basophils # (Auto) 0.0 x10^3/uL (0.0-0.2) Sodium Level 139 mmol/L (136-145) Potassium Level 3.3 mmol/L (3.5-5.1) Chloride Level 102 mmol/L (98-107) Carbon Dioxide Level 29 mmol/L (21-32) Anion Gap 8 (6-14) Blood Urea Nitrogen 9 mg/dL (8-26) Creatinine 0.8 mg/dL (0.7-1.3) Estimated GFR (Cockcroft-Gault) 92.8 BUN/Creatinine Ratio 11 (6-20) Glucose Level 209 mg/dL (70-99) Calcium Level 8.6 mg/dL (8.5-10.1) Total Bilirubin 0.4 mg/dL (0.2-1.0) Aspartate Amino Transf (AST/SGOT) 38 U/L (15-37) Alanine Aminotransferase (ALT/SGPT) 76 U/L (16-63) Alkaline Phosphatase 75 U/L (46-116) Total Protein 5.9 g/dL (6.4-8.2) Albumin 2.1 g/dL (3.4-5.0) Albumin/Globulin Ratio 0.6 (1.0-1.7) Glucose (Fingerstick) 188 mg/dL (70-99) Microbiology 04/20/18 Blood Culture - Final, Complete NO GROWTH AFTER 5 DAYS 04/21/18 Anaerobic/Aerobic Culture, Resulted Pending 04/21/18 Anaerobic Culture Result 1 (AMBROCIO), Resulted Pending 04/21/18 Aerobic Culture - Final, Resulted 04/21/18 Aerobic Culture Result 1 (AMBROCIO) - Final, Resulted 04/21/18 Aerobic Culture Result 2 (AMBROCIO) - Final, Resulted 04/21/18 Aerobic Culture Result 3 (AMBROCIO) - Final, Resulted 04/21/18 Antimicrobic Susceptibility - Final, Resulted 04/21/18 Gram Stain - Final, Resulted 04/21/18 Gram Stain Result 1 (AMBROCIO) - Final, Resulted 04/21/18 Gram Stain Result 2 (AMBROCIO) - Final, Resulted 04/21/18 Gram Stain Result 3 (AMBROCIO) - Final, Resulted 04/21/18 Gram Stain Result 4 (AMBROCIO) - Final, Resulted Medications Current Medications Sodium Chloride 1,000 ml @ 2,190 mls/hr Q28M IV Last administered on at 19:39; Start 04/20/18 at 18:09; Stop 04/20/18 at 19:06; Status DC Piperacillin Sod/ Tazobactam Sod 4.5 gm/Sodium Chloride 100 ml @ 200 mls/hr 1X ONCE IV Last administered on 04/20/18at 18:58; Start 04/20/18 at 18:15; Stop 04/20/18 at 18:44; Status DC Vancomycin HCl (Vanco Per Pharmacy) 1 each 1X ONCE MC ; Start 04/20/18 at 18:15 ; Stop 04/20/18 at 18:16; Status Cancel Morphine Sulfate (Morphine Sulfate) 4 mg PRN Q15MIN PRN IV/SQ PAIN GREATER THAN 3/10; Start 04/20/18 at 18:15; Stop 04/21/18 at 18:14; Status DC Vancomycin HCl 1.5 gm/Sodium Chloride 500 ml @ 250 mls/hr 1X ONCE IV Last administered on 04/20/18at 19:35; Start 04/20/18 at 18:30; Stop 04/20/18 at 20:29 ; Status DC Insulin Human Regular (HumuLIN R VIAL) 8 unit 1X ONCE SQ Last administered on 04/20/18at 19:33; Start 04/20/18 at 19:15; Stop 04/20/18 at 19:29; Status DC Insulin Human Lispro (HumaLOG) 0-5 UNITS TIDWMEALS SQ Last administered on at 08:27; Start 04/21/18 at 08:00 Dextrose (Dextrose 50%-Water Syringe) 12.5 gm PRN Q15MIN PRN IV SEE COMMENTS; Start 04/20/18 at 19:45 Ondansetron HCl (Zofran) 4 mg PRN Q8HRS PRN IV NAUSEA/VOMITING; Start 04/20/18 at 20:00; Stop 04/21/18 at 19:59; Status DC Morphine Sulfate (Morphine Sulfate) 4 mg PRN Q2HR PRN IV PAIN Last administered on 04/21/18at 07:29; Start 04/20/18 at 20:00; Stop 04/21/18 at 19:59 ; Status DC Sodium Chloride 1,000 ml @ 125 mls/hr 1X ONCE IV ; Start 04/20/18 at 20:00; Stop 04/21/18 at 03:59; Status DC Sodium Chloride 1,000 ml @ 75 mls/hr [id number] IV Last administered on at 07:00; Start 04/20/18 at 21:30; Stop 04/25/18 at 06:04; Status DC Insulin Human Lispro (HumaLOG) 5 units 1X ONCE SQ Last administered on at 21:57; Start 04/20/18 at 21:30; Stop 04/20/18 at 21:31; Status DC Sodium Chloride 1,000 ml @ 1,000 mls/hr 1X ONCE IV Last administered on at 02:01; Start 04/21/18 at 02:00; Stop 04/21/18 at 02:59; Status DC Norepinephrine Bitartrate 250 ml @ 1.875 mls/ hr CONT PRN IV SEE I/O RECORD Last administered on 04/21/18at 02:27; Start 04/21/18 at 02:00; Stop 04/23/18 at 14:18; Status DC Piperacillin Sod/ Tazobactam Sod 3.375 gm/Sodium Chloride 50 ml @ 100 mls/hr Q6HRS IV Last administered on 04/26/18at 05:56; Start 04/21/18 at 08:00 Micafungin Sodium 100 mg/Dextrose 100 ml @ 100 mls/hr Q24H IV Last administered on 04/26/18at 08:23; Start 04/21/18 at 08:00 Vancomycin HCl (Vanco Per Pharmacy) 1 each PRN DAILY PRN MC SEE COMMENTS Last administered on 04/24/18at 11:19; Start 04/21/18 at 09:15; Stop 04/25/18 at 13:22; Status DC Vancomycin HCl 1 gm/Sodium Chloride 250 ml @ 250 mls/hr Q24H IV Last administered on 04/21/18at 20:03; Start 04/21/18 at 19:30; Stop 04/22/18 at 20:16 ; Status DC Vancomycin HCl (Vancomycin Trough Level) 1 each 1X ONCE MC ; Start 04/22/18 at 19:00; Stop 04/22/18 at 19:01; Status DC Aspirin (Ecotrin) 81 mg DAILYWBKFT PO Last administered on 04/26/18at 08:22; Start 04/21/18 at 10:00 Atorvastatin Calcium (Lipitor) 40 mg QHS PO Last administered on 04/25/18at 22:01 ; Start 04/21/18 at 21:00 Lidocaine/Sodium Bicarbonate (Buffered Lidocaine 1%) 3 ml STK-MED ONCE .ROUTE ; Start 04/21/18 at 10:17; Stop 04/21/18 at 10:18; Status DC Pantoprazole Sodium (PROTONIX VIAL for IV PUSH) 40 mg DAILYAC IVP Last administered on 04/22/18at 07:51; Start 04/21/18 at 11:00; Stop 04/22/18 at 12:39 ; Status DC Midazolam HCl (Versed) 2 mg STK-MED ONCE .ROUTE ; Start 04/21/18 at 10:53; Stop 04/21/18 at 10:55; Status DC Fentanyl Citrate (Fentanyl 2ml Vial) 100 mcg STK-MED ONCE .ROUTE ; Start at 10:53; Stop 04/21/18 at 10:56; Status DC Lidocaine/Sodium Bicarbonate (Buffered Lidocaine 1%) 3 ml 1X ONCE IJ Last administered on 04/21/18at 11:37; Start 04/21/18 at 11:00; Stop 04/21/18 at 11:02 ; Status DC Midazolam HCl (Versed) 2 mg 1X ONCE IV Last administered on 04/21/18at 11:37; Start 04/21/18 at 11:00; Stop 04/21/18 at 11:02; Status DC Fentanyl Citrate (Fentanyl 2ml Vial) 100 mcg 1X ONCE IV Last administered on at 11:37; Start 04/21/18 at 11:00; Stop 04/21/18 at 11:02; Status DC Insulin Human Lispro (HumaLOG) 0-7 UNITS TIDWMEALS SQ ; Start 04/21/18 at 17:00 ; Status UNV Dextrose (Dextrose 50%-Water Syringe) 12.5 gm PRN Q15MIN PRN IV SEE COMMENTS; Start 04/21/18 at 16:30; Status UNV Amino Acids/ Glycerin/ Electrolytes 1,000 ml @ 80 mls/hr [id number] IV Last administered on 04/24/18at 21:33; Start 04/21/18 at 17:00; Stop 04/25/18 at 14:16; Status DC Saliva Substitute (Biotene Moisturizing Mouth) 2 spray PRN Q15MIN PRN PO DRY MOUTH; Start 04/21/18 at 16:30 Sodium Chloride 1,000 ml @ 1,000 mls/hr 1X ONCE IV Last administered on at 16:30; Start 04/21/18 at 16:30; Stop 04/21/18 at 17:29; Status DC Morphine Sulfate (Morphine Sulfate) 4 mg PRN Q2HR PRN IV SEVERE PAIN Last administered on 04/21/18at 21:35; Start 04/21/18 at 21:30 Insulin Glargine (Lantus) 8 units DAILY10 SQ Last administered on 04/23/18at 10: 13; Start 04/22/18 at 10:00; Stop 04/24/18 at 10:00; Status DC Pantoprazole Sodium (Protonix) 40 mg DAILYAC PO Last administered on 04/26/18 05:56; Start 04/23/18 at 07:30 Clopidogrel Bisulfate (Plavix) 75 mg DAILYWBKFT PO Last administered on 08:22; Start 04/22/18 at 17:00 Vancomycin HCl 750 mg/Sodium Chloride 250 ml @ 250 mls/hr Q12H IV Last administered on 04/23/18 20:51; Start 04/22/18 at 21:00; Stop 04/24/18 at 11:08; Status DC Vancomycin HCl (Vancomycin Trough Level) 1 each 1X ONCE MC Last administered on 04/24/18 08:30; Start 04/24/18 at 08:30; Stop 04/24/18 at 08:31; Status DC Zolpidem Tartrate (Ambien) 5 mg PRN QHS PRN PO INSOMNIA Last administered on 21:28; Start 04/22/18 at 21:00 Insulin Human Lispro (HumaLOG) 2 units 1X ONCE SQ Last administered on 22:30; Start 04/22/18 at 23:00; Stop 04/22/18 at 23:01; Status DC Insulin Human Lispro (HumaLOG) 3 units 1X ONCE SQ Last administered on 21:00; Start 04/23/18 at 21:00; Stop 04/23/18 at 21:01; Status DC Insulin Glargine (Lantus) 12 units DAILY10 SQ Last administered on 04/25/18 12: 09; Start 04/24/18 at 10:00 Vancomycin HCl 1 gm/Sodium Chloride 250 ml @ 250 mls/hr Q12H IV Last administered on 04/25/18 12:04; Start 04/24/18 at 11:30; Stop 04/25/18 at 13:22; Status DC Vancomycin HCl (Vancomycin Trough Level) 1 each 1X ONCE MC ; Start 04/25/18 at 23:00; Stop 04/25/18 at 23:00; Status DC Lactobacillus Rhamnosus (Culturelle) 1 cap BID PO Last administered on 2/4/ 19at 08:22; Start 04/24/18 at 21:00 Amlodipine Besylate (Norvasc) 5 mg DAILY PO Last administered on 04/26/18 08:23 ; Start 04/24/18 at 16:00 Aspirin (Ecotrin) 81 mg DAILYWBKFT PO ; Start 04/24/18 at 16:00; Status Cancel Atorvastatin Calcium (Lipitor) 40 mg QHS PO ; Start 04/24/18 at 21:00; Status Cancel Carvedilol (Coreg) 12.5 mg BIDWMEALS PO Last administered on 04/26/18 08:22; Start 04/24/18 at 17:00 Vitamin D (Vitamin D3) 2,000 unit DAILY PO Last administered on 04/26/18 08:23 ; Start 04/24/18 at 16:00 Albuterol Sulfate (Ventolin Neb Soln) 2.5 mg RTQID NEB Last administered on 04/26at 07:37; Start 04/24/18 at 20:00 Insulin Human Lispro (HumaLOG) 2 units 1X ONCE SQ Last administered on at 21:44; Start 04/24/18 at 21:30; Stop 04/24/18 at 21:31; Status DC Insulin Human Lispro (HumaLOG) 6 units 1X ONCE SQ Last administered on at 22:06; Start 04/25/18 at 22:00; Stop 04/25/18 at 22:01; Status DC Active Scripts Active Lipitor (Atorvastatin Calcium) 40 Mg Tablet 1 Tab PO QHS Aspirin Ec (Aspirin) 81 Mg Tablet.dr 81 Mg PO DAILYWBKFT Brilinta (Ticagrelor) 90 Mg Tablet 90 Mg PO BID Reported Soma (Carisoprodol) 350 Mg Tablet 1 Tab PO BID Omeprazole 40 Mg Capsule.dr 1 Cap PO DAILY Symbicort 80-4.5 Mcg Inhaler (Budesonide/Formoterol Fumarate) 10.2 Gm Hfa.aer.ad 1 Puff IH BID Metformin Hcl 500 Mg Tablet 500 Mg PO BIDWMEALS Amaryl (Glimepiride) 4 Mg Tablet 1 Tab PO DAILY Amlodipine Besylate 5 Mg Tablet 5 Mg PO DAILY Carvedilol (Carvedilol) 12.5 Mg Tablet 1 Tab PO BID Colestipol Hcl 1 Gm Tablet 2 Gm PO 1X Magnesium Oxide 400 Mg Tablet 250 Tab PO DAILY Vitamin D3 (Cholecalciferol (Vitamin D3)) 1,000 Unit Tablet 2,000 Tab PO DAILY Vitals/I & O Vital Sign - Last 24 Hours 04/25/18 04/25/18 04/25/18 04/25/18 11:00 11:43 15:00 15:35 Temp 97.9 97.8 97.9 97.8 Pulse 84 91 Resp 16 16 B/P (MAP) 134/75 (94) 118/69 (85) Pulse Ox 96 97 96 O2 Delivery Room Air Room Air Room Air Room Air 04/25/18 04/25/18 04/25/18 04/25/18 18:27 19:45 19:52 21:39 Temp 98.3 98.3 Pulse 91 83 Resp 16 B/P (MAP) 118/69 123/63 (83) Pulse Ox 94 96 O2 Delivery Room Air Room Air Room Air O2 Flow Rate 2.0 04/25/18 04/26/18 04/26/18 04/26/18 23:11 03:47 07:34 07:38 Temp 97.5 98.5 97.5 98.5 Pulse 91 87 Resp 16 16 B/P (MAP) 118/68 (85) 126/70 (88) Pulse Ox 93 92 94 O2 Delivery Room Air Room Air Room Air Room Air 04/26/18 04/26/18 04/26/18 08:00 08:22 08:23 Temp 97.7 97.7 Pulse 89 89 89 Resp 18 B/P (MAP) 130/82 (98) 130/82 130/82 Pulse Ox 98 O2 Delivery Room Air Intake and Output 04/25/18 04/25/18 04/26/18 15:01 23:01 07:01 Intake Total 170 ml Balance 170 ml Nutrition Consultation Dietary Evaluation: Recommendations by RD: PPN/TPN Comments: REC ADA diet per 's request, honor food preferences Continue PPN until PO intake of meals >75% est needs Expected Outcomes/Goals: Initiation of nutrition within 24-48 hrs - met, new goal established New goal 04/23: PO intake to meet >75% est needs Interpretation of weight loss: >5% in 1 month Malnutrition Findings: Food and Nutrition Intake (Mod: <75% est energy req 7days Weight Status: Appropriate ASHIA DEVRIES MD Apr 26, 2018 10:11
[2018-04-26] MEDS ORDERED: CONTRAST GIVEN. MC PRN (10:30)
[2018-04-26] MEDS ORDERED: IOHEXOL 300 MG/ML 100ML VIAL. IV ONE (10:30)
[2018-04-26] MEDS ORDERED: IOHEXOL 240 MG/ML 50ML VIAL. PO ONE (10:30)
[2018-04-26] MEDS: INSULIN GLARGINE 300 UNITS/3 ML INSULN.PEN. SQ SCH (10:53)
--- NOTE | 2018-04-26 10:55 | NUR ---
RLQ JEREMY drain flushed with 10cc NS.
--- NOTE | 2018-04-26 11:13 | PDOC ---
Subjective: Subjective: Spoke with - he was in the restroom. She says he's feeling better and she has noticed he's talking more and acting more like himself. Tolerating PO and stooling. Objective: Objective: Reviewed w/ RN, note plans for interval CT today. Vital Signs: Vital Signs Date Time Temp Pulse Resp B/P (MAP) Pulse Ox O2 Delivery O2 Flow Rate FiO2 04/26/18 11:06 Room Air 04/26/18 08:23 89 130/82 04/26/18 08:00 97.7 18 98 97.7 04/25/18 21:39 2.0 Labs: Laboratory Tests Test 04/25/18 11:33 04/25/18 16:01 04/25/18 20:35 04/26/18 01:18 Glucose (Fingerstick) 330 mg/dL 402 mg/dL 325 mg/dL 193 mg/dL Test 04/26/18 06:37 04/26/18 07:29 White Blood Count 11.2 x10^3/uL Red Blood Count 3.86 x10^6/uL Hemoglobin 11.0 g/dL Hematocrit 34.1 % Mean Corpuscular Volume 88 fL Mean Corpuscular Hemoglobin 29 pg Mean Corpuscular Hemoglobin Concent 32 g/dL Red Cell Distribution Width 13.9 % Platelet Count 362 x10^3/uL Neutrophils (%) (Auto) 74 % Lymphocytes (%) (Auto) 14 % Monocytes (%) (Auto) 9 % Eosinophils (%) (Auto) 3 % Basophils (%) (Auto) 0 % Neutrophils # (Auto) 8.3 x10^3uL Lymphocytes # (Auto) 1.6 x10^3/uL Monocytes # (Auto) 1.0 x10^3/uL Eosinophils # (Auto) 0.3 x10^3/uL Basophils # (Auto) 0.0 x10^3/uL Sodium Level 139 mmol/L Potassium Level 3.3 mmol/L Chloride Level 102 mmol/L Carbon Dioxide Level 29 mmol/L Anion Gap 8 Blood Urea Nitrogen 9 mg/dL Creatinine 0.8 mg/dL Estimated GFR (Cockcroft-Gault) 92.8 BUN/Creatinine Ratio 11 Glucose Level 209 mg/dL Calcium Level 8.6 mg/dL Total Bilirubin 0.4 mg/dL Aspartate Amino Transf (AST/SGOT) 38 U/L Alanine Aminotransferase (ALT/SGPT) 76 U/L Alkaline Phosphatase 75 U/L Total Protein 5.9 g/dL Albumin 2.1 g/dL Albumin/Globulin Ratio 0.6 Glucose (Fingerstick) 188 mg/dL PE: in restroom A/P: Abd abscess s/p drain placement Leukocytosis - better Anemia - stable Mild transaminitis - better -- Await CT. EMILY KNIGHT Apr 26, 2018 11:13
[2018-04-26 12:00] VITALS: BP 131/71
[2018-04-26] MEDS ORDERED: POTASSIUM CHLORIDE 20 MEQ TABLET.ER. PO ONE (12:00)
--- NOTE | 2018-04-26 12:46 | PDOC ---
DAYNE NEWBERRY [employer] 04/26/18 1246: SURGICAL PROGRESS NOTE Subjective no complaints ct done Vital Signs Vital Signs Date Time Temp Pulse Resp B/P (MAP) Pulse Ox O2 Delivery O2 Flow Rate FiO2 04/26/18 12:00 97.4 87 131/71 (91) 96 Room Air 97.4 04/26/18 08:00 18 04/25/18 21:39 2.0 I&O Intake and Output 04/26/18 07:01 Intake Total 170 ml Balance 170 ml Intake Oral 120 ml IV Total 50 ml # Voids 8 # Bowel Movements 1 General: Alert, Oriented X3, Cooperative, No acute distress Abdomen: Soft, Other (drain less seropurulent ) Labs Laboratory Tests Test 04/24/18 16:22 04/24/18 20:55 04/25/18 04:00 04/25/18 08:10 Glucose (Fingerstick) 207 mg/dL (70-99) 260 mg/dL (70-99) 262 mg/dL (70-99) White Blood Count 13.0 x10^3/uL (4.0-11.0) Red Blood Count 3.61 x10^6/uL (4.30-5.70) Hemoglobin 10.6 g/dL (13.0-17.5) Hematocrit 31.5 % (39.0-53.0) Mean Corpuscular Volume 87 fL (79-100) Mean Corpuscular Hemoglobin 29 pg (25-35) Mean Corpuscular Hemoglobin Concent 34 g/dL (31-37) Red Cell Distribution Width 14.0 % (11.5-14.5) Platelet Count 330 x10^3/uL (140-400) Neutrophils (%) (Auto) 78 % (31-73) Lymphocytes (%) (Auto) 12 % (24-48) Monocytes (%) (Auto) 7 % (0-9) Eosinophils (%) (Auto) 3 % (0-3) Basophils (%) (Auto) 0 % (0-3) Neutrophils # (Auto) 10.2 x10^3uL (1.8-7.7) Lymphocytes # (Auto) 1.6 x10^3/uL (1.0-4.8) Monocytes # (Auto) 0.9 x10^3/uL (0.0-1.1) Eosinophils # (Auto) 0.3 x10^3/uL (0.0-0.7) Basophils # (Auto) 0.0 x10^3/uL (0.0-0.2) Sodium Level 137 mmol/L (136-145) Potassium Level 3.6 mmol/L (3.5-5.1) Chloride Level 102 mmol/L (98-107) Carbon Dioxide Level 26 mmol/L (21-32) Anion Gap 9 (6-14) Blood Urea Nitrogen 11 mg/dL (8-26) Creatinine 0.8 mg/dL (0.7-1.3) Estimated GFR (Cockcroft-Gault) 92.8 Glucose Level 238 mg/dL (70-99) Calcium Level 8.2 mg/dL (8.5-10.1) Test 04/25/18 11:33 04/25/18 16:01 04/25/18 20:35 04/26/18 01:18 Glucose (Fingerstick) 330 mg/dL (70-99) 402 mg/dL (70-99) 325 mg/dL (70-99) 193 mg/dL (70-99) Test 04/26/18 06:37 04/26/18 07:29 04/26/18 11:35 White Blood Count 11.2 x10^3/uL (4.0-11.0) Red Blood Count 3.86 x10^6/uL (4.30-5.70) Hemoglobin 11.0 g/dL (13.0-17.5) Hematocrit 34.1 % (39.0-53.0) Mean Corpuscular Volume 88 fL (79-100) Mean Corpuscular Hemoglobin 29 pg (25-35) Mean Corpuscular Hemoglobin Concent 32 g/dL (31-37) Red Cell Distribution Width 13.9 % (11.5-14.5) Platelet Count 362 x10^3/uL (140-400) Neutrophils (%) (Auto) 74 % (31-73) Lymphocytes (%) (Auto) 14 % (24-48) Monocytes (%) (Auto) 9 % (0-9) Eosinophils (%) (Auto) 3 % (0-3) Basophils (%) (Auto) 0 % (0-3) Neutrophils # (Auto) 8.3 x10^3uL (1.8-7.7) Lymphocytes # (Auto) 1.6 x10^3/uL (1.0-4.8) Monocytes # (Auto) 1.0 x10^3/uL (0.0-1.1) Eosinophils # (Auto) 0.3 x10^3/uL (0.0-0.7) Basophils # (Auto) 0.0 x10^3/uL (0.0-0.2) Sodium Level 139 mmol/L (136-145) Potassium Level 3.3 mmol/L (3.5-5.1) Chloride Level 102 mmol/L (98-107) Carbon Dioxide Level 29 mmol/L (21-32) Anion Gap 8 (6-14) Blood Urea Nitrogen 9 mg/dL (8-26) Creatinine 0.8 mg/dL (0.7-1.3) Estimated GFR (Cockcroft-Gault) 92.8 BUN/Creatinine Ratio 11 (6-20) Glucose Level 209 mg/dL (70-99) Calcium Level 8.6 mg/dL (8.5-10.1) Total Bilirubin 0.4 mg/dL (0.2-1.0) Aspartate Amino Transf (AST/SGOT) 38 U/L (15-37) Alanine Aminotransferase (ALT/SGPT) 76 U/L (16-63) Alkaline Phosphatase 75 U/L (46-116) Total Protein 5.9 g/dL (6.4-8.2) Albumin 2.1 g/dL (3.4-5.0) Albumin/Globulin Ratio 0.6 (1.0-1.7) Glucose (Fingerstick) 188 mg/dL (70-99) 272 mg/dL (70-99) Laboratory Tests Test 04/25/18 16:01 04/25/18 20:35 04/26/18 01:18 04/26/18 06:37 Glucose (Fingerstick) 402 mg/dL (70-99) 325 mg/dL (70-99) 193 mg/dL (70-99) White Blood Count 11.2 x10^3/uL (4.0-11.0) Red Blood Count 3.86 x10^6/uL (4.30-5.70) Hemoglobin 11.0 g/dL (13.0-17.5) Hematocrit 34.1 % (39.0-53.0) Mean Corpuscular Volume 88 fL (79-100) Mean Corpuscular Hemoglobin 29 pg (25-35) Mean Corpuscular Hemoglobin Concent 32 g/dL (31-37) Red Cell Distribution Width 13.9 % (11.5-14.5) Platelet Count 362 x10^3/uL (140-400) Neutrophils (%) (Auto) 74 % (31-73) Lymphocytes (%) (Auto) 14 % (24-48) Monocytes (%) (Auto) 9 % (0-9) Eosinophils (%) (Auto) 3 % (0-3) Basophils (%) (Auto) 0 % (0-3) Neutrophils # (Auto) 8.3 x10^3uL (1.8-7.7) Lymphocytes # (Auto) 1.6 x10^3/uL (1.0-4.8) Monocytes # (Auto) 1.0 x10^3/uL (0.0-1.1) Eosinophils # (Auto) 0.3 x10^3/uL (0.0-0.7) Basophils # (Auto) 0.0 x10^3/uL (0.0-0.2) Sodium Level 139 mmol/L (136-145) Potassium Level 3.3 mmol/L (3.5-5.1) Chloride Level 102 mmol/L (98-107) Carbon Dioxide Level 29 mmol/L (21-32) Anion Gap 8 (6-14) Blood Urea Nitrogen 9 mg/dL (8-26) Creatinine 0.8 mg/dL (0.7-1.3) Estimated GFR (Cockcroft-Gault) 92.8 BUN/Creatinine Ratio 11 (6-20) Glucose Level 209 mg/dL (70-99) Calcium Level 8.6 mg/dL (8.5-10.1) Total Bilirubin 0.4 mg/dL (0.2-1.0) Aspartate Amino Transf (AST/SGOT) 38 U/L (15-37) Alanine Aminotransferase (ALT/SGPT) 76 U/L (16-63) Alkaline Phosphatase 75 U/L (46-116) Total Protein 5.9 g/dL (6.4-8.2) Albumin 2.1 g/dL (3.4-5.0) Albumin/Globulin Ratio 0.6 (1.0-1.7) Test 04/26/18 07:29 04/26/18 11:35 Glucose (Fingerstick) 188 mg/dL (70-99) 272 mg/dL (70-99) Problem List Problems Medical Problems: (1) Abdominal abscess Status: Acute (2) Diverticulosis Status: Acute (3) Hyperglycemia Status: Acute (4) Perforation bowel Status: Acute Assessment/Plan ct pending LUIZA JOHNSON MD 04/26/18 1429: SURGICAL PROGRESS NOTE Assessment/Plan Pt seen and examined. Agree with Ms. Newberry's note Pt feels better, stefany diet, ready to go home abd soft, ND, NTTP CT with resolved abscess OK to d/c home and f/u in a few weeks d/w ID. DAYNE NEWBERRY APRN Apr 26, 2018 12:46 LUIZA JOHNSON MD Apr 26, 2018 14:29
--- NOTE | 2018-04-26 13:21 | RAD ---
PQRS Compliance statement: One or more of the following individualized dose reduction techniques were utilized for this examination: 1. Automated exposure control. 2. Adjustment of the mA and/or kV according to patient size. 3. Use of iterative reconstruction technique. Indication:Abscess f/u drain inj 75ml Omni 300 no prev TECHNIQUE: CT abdomen and pelvis with IV contrast with multiplanar reformats. COMPARISON: None FINDINGS: Heart is normal in size. No pericardial or pleural effusion. Mild right dependent basilar consolidation likely dependent atelectasis. 1.2 cm low attenuating lesion is seen in segment 7/6 junction. Rest of the liver, spleen, pancreas, adrenals within normal limits. Status post cholecystectomy. 6 mm nonobstructing stone is seen in the right renal pelvis. No hydronephrosis. No enlarged retroperitoneal or pelvic adenopathy. No free pelvic fluid or ascites. Mild diffuse atherosclerotic disease of the abdominal aorta. No bowel obstruction. Sigmoid diverticulosis. Normal appendix. Prominent fluid-filled diverticulum or contained pericolonic abscess adjacent to the sigmoid colon in the right hemipelvis (series 2 image 68) measuring 2.8 x 1.7 cm. There is a seen right lower quadrant fluid collection has resolved. Tip of the abscess drain is in the right hemipelvis. Urinary bladder is within normal limits. The prostate and seminal vesicles show no large mass. No pneumoperitoneum or emphysematous intestinalis. No suspicious bony lesion. IMPRESSION: 1. Interval resolution of previously seen right lower quadrant collection. 2. Prominent diverticulum or small contained pericolonic abscess in the right hemipelvis adjacent to the sigmoid colon. 3. Right hepatic lobe lesion, indeterminate and may represent a small hemangioma uncomplicated cyst. Ultrasound of the abdomen can be obtained for further evaluation. 4. Nonobstructing right renal pelvis stone. Electronically signed by: Lexx Norwood DO (04/26/2018 1:17 PM) [id number]
[2018-04-26] MEDS ORDERED: INSU100I13 SQ (14:38)
[2018-04-26] MEDS ORDERED: LACT1CAP19 PO (14:38)
[2018-04-26] MEDS ORDERED: SALI44.3 PO (14:38)
[2018-04-26] MEDS ORDERED: CIPR500T94 PO (14:38)
--- NOTE | 2018-04-26 14:41 | DISCH ---
DISCHARGE INSTRUCTIONS Condition on Discharge Condition on Discharge: Stable Activity After Discharge Activity Instructions for Disc: Activity as tolerated Bathing Instructions: Shower-keep dressing dry, No Tub Bath until see Lifting Instructions after Dis: No heavy lifting Driving Instructions after Dis: Do not drive Weight Bearing Status after Di: As tolerated Diet after Discharge Diet after Discharge: Cardiac, Diabetic No Calorie Level Wound Incision Care Wound Care Equipment: Dressings Checks after Discharge Checks after discharge: Check blood press - daily Contacting the DRRose after DC Call your doctor for: If your condition worsens Treatment/Equipment after DC Comment: lower abdomen ASHIA DEVRIES MD Apr 26, 2018 14:41
--- NOTE | 2018-04-26 14:45 | PDOC3 ---
Discharge Summary Date of Admission: Apr 20, 2018 Date of Discharge: Apr 26, 2018 Follow-Up: Other (1-2 weeks with surgery) Admitting Diagnosis comment: discharge dx Chief Complaint impression 1. Acute abdominal pain, sepsis POA, with perforated bowel, diverticula, CT 2/[address] with some purulent material POD # 5 CT-guided abdominal abscess drain STILL WITH RED TINGED MATERIAL 2. abdominal abscesses 3, diabetes 2, hyperglycemia, CONTROL poor lantus added 12 units hs sq, now improving off PPN 4. CAD post stent 2018 5. severe protein-caloric malnutrition, POA 6. wheezing 7. S/p IR 04/21 gram stain with E. coli (R quinolones), Klebsiella (yeast on gram stain) 8. hypokalemia on replacement History of Present Illness History of Present Illness cont broad abx drain working well, fluid looks less dark, , JEREMY in place with some purulent material pain much better, gen surg and GI and ID following better glucose control needed, on SSI, add lantus , IMPROVING Vitals Vitals Vital Signs Date Time Temp Pulse Resp B/P (MAP) Pulse Ox O2 Delivery O2 Flow Rate FiO2 04/26/18 08:23 89 130/82 04/26/18 08:00 97.7 18 98 Room Air 97.7 04/25/18 21:39 2.0 Physical Exam Physical Exam GENERAL: Propped up in bed, alert, NAD HEENT: Pupils equal and reactive. Oral cavity, pharynx is clear. NECK: Supple, no JVD. LUNGS: Clear to auscultation, HEART: S1, S2. ABDOMEN: Obese, soft. BS present. JEREMY in place with some purulent material IMPROVED EXTREMITIES: No clubbing, cyanosis or gross edema. SKIN: without signs of rash. NEUROLOGIC: Alert, nonfocal and appropriate. IV General: Alert, Oriented X3, Cooperative, No acute distress Heart: Regular rate (SR no ectopies), Normal S1, Normal S2, No murmurs, Other ( 2/6 systolic murmur to LLS border) Lungs: Clear, Wheezing Abdomen: Normal bowel sounds, Soft, Other (drain purulent LESS) Extremities: No clubbing, No cyanosis, No edema, No tenderness/swelling Skin: No breakdown, No significant lesion FINAL DIAGNOSIS Problems Medical Problems: (1) Abdominal abscess Status: Acute (2) Diverticulosis Status: Acute (3) Hyperglycemia Status: Acute (4) Perforation bowel Status: Acute Brief Hospital Course Mr. Queen is a 82 old [sex] who presented with [ ] CONDITION AT DISCHARGE: Improved Discharge Medications Current Medications Sodium Chloride 1,000 ml @ 2,190 mls/hr Q28M IV Last administered on at 19:39; Start 04/20/18 at 18:09; Stop 04/20/18 at 19:06; Status DC Piperacillin Sod/ Tazobactam Sod 4.5 gm/Sodium Chloride 100 ml @ 200 mls/hr 1X ONCE IV Last administered on 04/20/18at 18:58; Start 04/20/18 at 18:15; Stop 04/20/18 at 18:44; Status DC Vancomycin HCl (Vanco Per Pharmacy) 1 each 1X ONCE MC ; Start 04/20/18 at 18:15 ; Stop 04/20/18 at 18:16; Status Cancel Morphine Sulfate (Morphine Sulfate) 4 mg PRN Q15MIN PRN IV/SQ PAIN GREATER THAN 3/10; Start 04/20/18 at 18:15; Stop 04/21/18 at 18:14; Status DC Vancomycin HCl 1.5 gm/Sodium Chloride 500 ml @ 250 mls/hr 1X ONCE IV Last administered on 04/20/18at 19:35; Start 04/20/18 at 18:30; Stop 04/20/18 at 20:29 ; Status DC Insulin Human Regular (HumuLIN R VIAL) 8 unit 1X ONCE SQ Last administered on 04/20/18at 19:33; Start 04/20/18 at 19:15; Stop 04/20/18 at 19:29; Status DC Insulin Human Lispro (HumaLOG) 0-5 UNITS TIDWMEALS SQ Last administered on at 13:05; Start 04/21/18 at 08:00 Dextrose (Dextrose 50%-Water Syringe) 12.5 gm PRN Q15MIN PRN IV SEE COMMENTS; Start 04/20/18 at 19:45 Ondansetron HCl (Zofran) 4 mg PRN Q8HRS PRN IV NAUSEA/VOMITING; Start 04/20/18 at 20:00; Stop 04/21/18 at 19:59; Status DC Morphine Sulfate (Morphine Sulfate) 4 mg PRN Q2HR PRN IV PAIN Last administered on 04/21/18at 07:29; Start 04/20/18 at 20:00; Stop 04/21/18 at 19:59 ; Status DC Sodium Chloride 1,000 ml @ 125 mls/hr 1X ONCE IV ; Start 04/20/18 at 20:00; Stop 04/21/18 at 03:59; Status DC Sodium Chloride 1,000 ml @ 75 mls/hr [id number] IV Last administered on at 07:00; Start 04/20/18 at 21:30; Stop 04/25/18 at 06:04; Status DC Insulin Human Lispro (HumaLOG) 5 units 1X ONCE SQ Last administered on at 21:57; Start 04/20/18 at 21:30; Stop 04/20/18 at 21:31; Status DC Sodium Chloride 1,000 ml @ 1,000 mls/hr 1X ONCE IV Last administered on at 02:01; Start 04/21/18 at 02:00; Stop 04/21/18 at 02:59; Status DC Norepinephrine Bitartrate 250 ml @ 1.875 mls/ hr CONT PRN IV SEE I/O RECORD Last administered on 04/21/18at 02:27; Start 04/21/18 at 02:00; Stop 04/23/18 at 14:18; Status DC Piperacillin Sod/ Tazobactam Sod 3.375 gm/Sodium Chloride 50 ml @ 100 mls/hr Q6HRS IV Last administered on 04/26/18at 13:02; Start 04/21/18 at 08:00 Micafungin Sodium 100 mg/Dextrose 100 ml @ 100 mls/hr Q24H IV Last administered on 04/26/18at 08:23; Start 04/21/18 at 08:00 Vancomycin HCl (Vanco Per Pharmacy) 1 each PRN DAILY PRN MC SEE COMMENTS Last administered on 04/24/18at 11:19; Start 04/21/18 at 09:15; Stop 04/25/18 at 13:22; Status DC Vancomycin HCl 1 gm/Sodium Chloride 250 ml @ 250 mls/hr Q24H IV Last administered on 04/21/18at 20:03; Start 04/21/18 at 19:30; Stop 04/22/18 at 20:16 ; Status DC Vancomycin HCl (Vancomycin Trough Level) 1 each 1X ONCE MC ; Start 04/22/18 at 19:00; Stop 04/22/18 at 19:01; Status DC Aspirin (Ecotrin) 81 mg DAILYWBKFT PO Last administered on 04/26/18at 08:22; Start 04/21/18 at 10:00 Atorvastatin Calcium (Lipitor) 40 mg QHS PO Last administered on 04/25/18at 22:01 ; Start 04/21/18 at 21:00 Lidocaine/Sodium Bicarbonate (Buffered Lidocaine 1%) 3 ml STK-MED ONCE .ROUTE ; Start 04/21/18 at 10:17; Stop 04/21/18 at 10:18; Status DC Pantoprazole Sodium (PROTONIX VIAL for IV PUSH) 40 mg DAILYAC IVP Last administered on 04/22/18at 07:51; Start 04/21/18 at 11:00; Stop 04/22/18 at 12:39 ; Status DC Midazolam HCl (Versed) 2 mg STK-MED ONCE .ROUTE ; Start 04/21/18 at 10:53; Stop 04/21/18 at 10:55; Status DC Fentanyl Citrate (Fentanyl 2ml Vial) 100 mcg STK-MED ONCE .ROUTE ; Start at 10:53; Stop 04/21/18 at 10:56; Status DC Lidocaine/Sodium Bicarbonate (Buffered Lidocaine 1%) 3 ml 1X ONCE IJ Last administered on 04/21/18at 11:37; Start 04/21/18 at 11:00; Stop 04/21/18 at 11:02 ; Status DC Midazolam HCl (Versed) 2 mg 1X ONCE IV Last administered on 04/21/18at 11:37; Start 04/21/18 at 11:00; Stop 04/21/18 at 11:02; Status DC Fentanyl Citrate (Fentanyl 2ml Vial) 100 mcg 1X ONCE IV Last administered on at 11:37; Start 04/21/18 at 11:00; Stop 04/21/18 at 11:02; Status DC Insulin Human Lispro (HumaLOG) 0-7 UNITS TIDWMEALS SQ ; Start 04/21/18 at 17:00 ; Status UNV Dextrose (Dextrose 50%-Water Syringe) 12.5 gm PRN Q15MIN PRN IV SEE COMMENTS; Start 04/21/18 at 16:30; Status UNV Amino Acids/ Glycerin/ Electrolytes 1,000 ml @ 80 mls/hr [id number] IV Last administered on 04/24/18at 21:33; Start 04/21/18 at 17:00; Stop 04/25/18 at 14:16; Status DC Saliva Substitute (Biotene Moisturizing Mouth) 2 spray PRN Q15MIN PRN PO DRY MOUTH; Start 04/21/18 at 16:30 Sodium Chloride 1,000 ml @ 1,000 mls/hr 1X ONCE IV Last administered on at 16:30; Start 04/21/18 at 16:30; Stop 04/21/18 at 17:29; Status DC Morphine Sulfate (Morphine Sulfate) 4 mg PRN Q2HR PRN IV SEVERE PAIN Last administered on 04/21/18at 21:35; Start 04/21/18 at 21:30 Insulin Glargine (Lantus) 8 units DAILY10 SQ Last administered on 04/23/18at 10: 13; Start 04/22/18 at 10:00; Stop 04/24/18 at 10:00; Status DC Pantoprazole Sodium (Protonix) 40 mg DAILYAC PO Last administered on 04/26/18at 05:56; Start 04/23/18 at 07:30 Clopidogrel Bisulfate (Plavix) 75 mg DAILYWBKFT PO Last administered on at 08:22; Start 04/22/18 at 17:00 Vancomycin HCl 750 mg/Sodium Chloride 250 ml @ 250 mls/hr Q12H IV Last administered on 04/23/18at 20:51; Start 04/22/18 at 21:00; Stop 04/24/18 at 11:08; Status DC Vancomycin HCl (Vancomycin Trough Level) 1 each 1X ONCE MC Last administered on 04/24/18at 08:30; Start 04/24/18 at 08:30; Stop 04/24/18 at 08:31; Status DC Zolpidem Tartrate (Ambien) 5 mg PRN QHS PRN PO INSOMNIA Last administered on at 21:28; Start 04/22/18 at 21:00 Insulin Human Lispro (HumaLOG) 2 units 1X ONCE SQ Last administered on at 22:30; Start 04/22/18 at 23:00; Stop 04/22/18 at 23:01; Status DC Insulin Human Lispro (HumaLOG) 3 units 1X ONCE SQ Last administered on at 21:00; Start 04/23/18 at 21:00; Stop 04/23/18 at 21:01; Status DC Insulin Glargine (Lantus) 12 units DAILY10 SQ Last administered on 04/26/18 10: 53; Start 04/24/18 at 10:00 Vancomycin HCl 1 gm/Sodium Chloride 250 ml @ 250 mls/hr Q12H IV Last administered on 04/25/18 12:04; Start 04/24/18 at 11:30; Stop 04/25/18 at 13:22; Status DC Vancomycin HCl (Vancomycin Trough Level) 1 each 1X ONCE MC ; Start 04/25/18 at 23:00; Stop 04/25/18 at 23:00; Status DC Lactobacillus Rhamnosus (Culturelle) 1 cap BID PO Last administered on 08:22; Start 04/24/18 at 21:00 Amlodipine Besylate (Norvasc) 5 mg DAILY PO Last administered on 04/26/18 08:23 ; Start 04/24/18 at 16:00 Aspirin (Ecotrin) 81 mg DAILYWBKFT PO ; Start 04/24/18 at 16:00; Status Cancel Atorvastatin Calcium (Lipitor) 40 mg QHS PO ; Start 04/24/18 at 21:00; Status Cancel Carvedilol (Coreg) 12.5 mg BIDWMEALS PO Last administered on 04/26/18 08:22; Start 04/24/18 at 17:00 Vitamin D (Vitamin D3) 2,000 unit DAILY PO Last administered on 04/26/18 08:23 ; Start 04/24/18 at 16:00 Albuterol Sulfate (Ventolin Neb Soln) 2.5 mg RTQID NEB Last administered on 04/26 11:05; Start 04/24/18 at 20:00 Insulin Human Lispro (HumaLOG) 2 units 1X ONCE SQ Last administered on 2/2/ 19at 21:44; Start 04/24/18 at 21:30; Stop 04/24/18 at 21:31; Status DC Insulin Human Lispro (HumaLOG) 6 units 1X ONCE SQ Last administered on at 22:06; Start 04/25/18 at 22:00; Stop 04/25/18 at 22:01; Status DC Iohexol (Omnipaque 300 Mg/ml) 75 ml 1X ONCE IV Last administered on 04/26/18at 12:03; Start 04/26/18 at 10:30; Stop 04/26/18 at 10:31; Status DC Iohexol (Omnipaque 240 Mg/ml) 50 ml 1X ONCE PO Last administered on 04/26/18at 12:03; Start 04/26/18 at 10:30; Stop 04/26/18 at 10:31; Status DC Info (CONTRAST GIVEN -- Rx MONITORING) 1 each PRN DAILY PRN MC SEE COMMENTS; Start 04/26/18 at 10:30; Stop 04/28/18 at 10:29 Potassium Chloride (Klor-Con) 40 meq 1X ONCE PO Last administered on 04/26/18at 13:00; Start 04/26/18 at 12:00; Stop 04/26/18 at 12:01; Status DC Potassium Chloride (Klor-Con) 20 meq DAILYWBKFT PO ; Start 04/27/18 at 08:00 Active Scripts Active Cipro (Ciprofloxacin Hcl) 500 Mg Tablet 1 Tab PO BID 14 Days Biotene Moisturizing Mouth (Saliva Stimulant Agents Comb.3) 44.3 Ml [place] 2 [place]ona PO PRN Q15MIN PRN 30 Days Lantus Solostar (Insulin Glargine,Hum.rec.anlog) 100 Unit/1 Ml Insuln.pen 12 Units SQ DAILY10 30 Days Culturelle (Lactobacillus Rhamnosus Gg) 1 Each Cap.sprink 1 Cap PO BID 28 Days Lipitor (Atorvastatin Calcium) 40 Mg Tablet 1 Tab PO QHS Aspirin Ec (Aspirin) 81 Mg Tablet. 81 Mg PO DAILYWBKFT Brilinta (Ticagrelor) 90 Mg Tablet 90 Mg PO BID Reported Soma (Carisoprodol) 350 Mg Tablet 1 Tab PO BID Omeprazole 40 Mg Capsule. 1 Cap PO DAILY Symbicort 80-4.5 Mcg Inhaler (Budesonide/Formoterol Fumarate) 10.2 Gm Hfa.aer.ad 1 Puff IH BID Amaryl (Glimepiride) 4 Mg Tablet 1 Tab PO DAILY Amlodipine Besylate 5 Mg Tablet 5 Mg PO DAILY Carvedilol (Carvedilol) 12.5 Mg Tablet 1 Tab PO BID Colestipol Hcl 1 Gm Tablet 2 Gm PO 1X Magnesium Oxide 400 Mg Tablet 250 Tab PO DAILY Vitamin D3 (Cholecalciferol (Vitamin D3)) 1,000 Unit Tablet 2,000 Tab PO DAILY Vital Signs Vital Signs Date Time Temp Pulse Resp B/P (MAP) Pulse Ox O2 Delivery O2 Flow Rate FiO2 04/26/18 12:00 97.4 87 131/71 (91) 96 Room Air 97.4 04/26/18 08:00 18 04/25/18 21:39 2.0 Labs Laboratory Tests Test 04/24/18 16:22 04/24/18 20:55 04/25/18 04:00 04/25/18 08:10 Glucose (Fingerstick) 207 mg/dL (70-99) 260 mg/dL (70-99) 262 mg/dL (70-99) White Blood Count 13.0 x10^3/uL (4.0-11.0) Red Blood Count 3.61 x10^6/uL (4.30-5.70) Hemoglobin 10.6 g/dL (13.0-17.5) Hematocrit 31.5 % (39.0-53.0) Mean Corpuscular Volume 87 fL (79-100) Mean Corpuscular Hemoglobin 29 pg (25-35) Mean Corpuscular Hemoglobin Concent 34 g/dL (31-37) Red Cell Distribution Width 14.0 % (11.5-14.5) Platelet Count 330 x10^3/uL (140-400) Neutrophils (%) (Auto) 78 % (31-73) Lymphocytes (%) (Auto) 12 % (24-48) Monocytes (%) (Auto) 7 % (0-9) Eosinophils (%) (Auto) 3 % (0-3) Basophils (%) (Auto) 0 % (0-3) Neutrophils # (Auto) 10.2 x10^3uL (1.8-7.7) Lymphocytes # (Auto) 1.6 x10^3/uL (1.0-4.8) Monocytes # (Auto) 0.9 x10^3/uL (0.0-1.1) Eosinophils # (Auto) 0.3 x10^3/uL (0.0-0.7) Basophils # (Auto) 0.0 x10^3/uL (0.0-0.2) Sodium Level 137 mmol/L (136-145) Potassium Level 3.6 mmol/L (3.5-5.1) Chloride Level 102 mmol/L (98-107) Carbon Dioxide Level 26 mmol/L (21-32) Anion Gap 9 (6-14) Blood Urea Nitrogen 11 mg/dL (8-26) Creatinine 0.8 mg/dL (0.7-1.3) Estimated GFR (Cockcroft-Gault) 92.8 Glucose Level 238 mg/dL (70-99) Calcium Level 8.2 mg/dL (8.5-10.1) Test 04/25/18 11:33 04/25/18 16:01 04/25/18 20:35 04/26/18 01:18 Glucose (Fingerstick) 330 mg/dL (70-99) 402 mg/dL (70-99) 325 mg/dL (70-99) 193 mg/dL (70-99) Test 04/26/18 06:37 04/26/18 07:29 04/26/18 11:35 White Blood Count 11.2 x10^3/uL (4.0-11.0) Red Blood Count 3.86 x10^6/uL (4.30-5.70) Hemoglobin 11.0 g/dL (13.0-17.5) Hematocrit 34.1 % (39.0-53.0) Mean Corpuscular Volume 88 fL (79-100) Mean Corpuscular Hemoglobin 29 pg (25-35) Mean Corpuscular Hemoglobin Concent 32 g/dL (31-37) Red Cell Distribution Width 13.9 % (11.5-14.5) Platelet Count 362 x10^3/uL (140-400) Neutrophils (%) (Auto) 74 % (31-73) Lymphocytes (%) (Auto) 14 % (24-48) Monocytes (%) (Auto) 9 % (0-9) Eosinophils (%) (Auto) 3 % (0-3) Basophils (%) (Auto) 0 % (0-3) Neutrophils # (Auto) 8.3 x10^3uL (1.8-7.7) Lymphocytes # (Auto) 1.6 x10^3/uL (1.0-4.8) Monocytes # (Auto) 1.0 x10^3/uL (0.0-1.1) Eosinophils # (Auto) 0.3 x10^3/uL (0.0-0.7) Basophils # (Auto) 0.0 x10^3/uL (0.0-0.2) Sodium Level 139 mmol/L (136-145) Potassium Level 3.3 mmol/L (3.5-5.1) Chloride Level 102 mmol/L (98-107) Carbon Dioxide Level 29 mmol/L (21-32) Anion Gap 8 (6-14) Blood Urea Nitrogen 9 mg/dL (8-26) Creatinine 0.8 mg/dL (0.7-1.3) Estimated GFR (Cockcroft-Gault) 92.8 BUN/Creatinine Ratio 11 (6-20) Glucose Level 209 mg/dL (70-99) Calcium Level 8.6 mg/dL (8.5-10.1) Total Bilirubin 0.4 mg/dL (0.2-1.0) Aspartate Amino Transf (AST/SGOT) 38 U/L (15-37) Alanine Aminotransferase (ALT/SGPT) 76 U/L (16-63) Alkaline Phosphatase 75 U/L (46-116) Total Protein 5.9 g/dL (6.4-8.2) Albumin 2.1 g/dL (3.4-5.0) Albumin/Globulin Ratio 0.6 (1.0-1.7) Glucose (Fingerstick) 188 mg/dL (70-99) 272 mg/dL (70-99) Laboratory Tests Test 04/25/18 16:01 04/25/18 20:35 04/26/18 01:18 04/26/18 06:37 Glucose (Fingerstick) 402 mg/dL (70-99) 325 mg/dL (70-99) 193 mg/dL (70-99) White Blood Count 11.2 x10^3/uL (4.0-11.0) Red Blood Count 3.86 x10^6/uL (4.30-5.70) Hemoglobin 11.0 g/dL (13.0-17.5) Hematocrit 34.1 % (39.0-53.0) Mean Corpuscular Volume 88 fL (79-100) Mean Corpuscular Hemoglobin 29 pg (25-35) Mean Corpuscular Hemoglobin Concent 32 g/dL (31-37) Red Cell Distribution Width 13.9 % (11.5-14.5) Platelet Count 362 x10^3/uL (140-400) Neutrophils (%) (Auto) 74 % (31-73) Lymphocytes (%) (Auto) 14 % (24-48) Monocytes (%) (Auto) 9 % (0-9) Eosinophils (%) (Auto) 3 % (0-3) Basophils (%) (Auto) 0 % (0-3) Neutrophils # (Auto) 8.3 x10^3uL (1.8-7.7) Lymphocytes # (Auto) 1.6 x10^3/uL (1.0-4.8) Monocytes # (Auto) 1.0 x10^3/uL (0.0-1.1) Eosinophils # (Auto) 0.3 x10^3/uL (0.0-0.7) Basophils # (Auto) 0.0 x10^3/uL (0.0-0.2) Sodium Level 139 mmol/L (136-145) Potassium Level 3.3 mmol/L (3.5-5.1) Chloride Level 102 mmol/L (98-107) Carbon Dioxide Level 29 mmol/L (21-32) Anion Gap 8 (6-14) Blood Urea Nitrogen 9 mg/dL (8-26) Creatinine 0.8 mg/dL (0.7-1.3) Estimated GFR (Cockcroft-Gault) 92.8 BUN/Creatinine Ratio 11 (6-20) Glucose Level 209 mg/dL (70-99) Calcium Level 8.6 mg/dL (8.5-10.1) Total Bilirubin 0.4 mg/dL (0.2-1.0) Aspartate Amino Transf (AST/SGOT) 38 U/L (15-37) Alanine Aminotransferase (ALT/SGPT) 76 U/L (16-63) Alkaline Phosphatase 75 U/L (46-116) Total Protein 5.9 g/dL (6.4-8.2) Albumin 2.1 g/dL (3.4-5.0) Albumin/Globulin Ratio 0.6 (1.0-1.7) Test 04/26/18 07:29 04/26/18 11:35 Glucose (Fingerstick) 188 mg/dL (70-99) 272 mg/dL (70-99) Allergies Allergies Coded Allergies Type Severity Reaction Last Updated Verified latex Allergy Intermediate rash/blisters, 01/21/18 Yes Disposition/Orders: D/C to Home Patient Instructions d/c planning 59 min ASHIA DEVRIES MD Apr 26, 2018 14:45
--- NOTE | 2018-04-26 14:46 | NUR ---
JEREMY dixon teaching done with pt and , verbalized understanding. noted a white stringy substance with a worm like appearance. Will await Dr. Frey's rounding to assess before d/c home.
--- NOTE | 2018-04-26 14:49 | NUR ---
SW following for discharge planning. Discussed with RN, pt had a CT today to decide between IV abx and PO. Pt will discharge home on PO abx, RN advised no SW needs.
--- NOTE | 2018-04-26 15:39 | NUR ---
Rx for Lantus, Lactobacillus and Biotene called in to pt's pharmacy, [facility] [place].
--- NOTE | 2018-04-26 15:52 | NUR ---
Per pt request, Beverly called in to pt's pharmacy[facility] in [place].
--- NOTE | 2018-04-26 15:52 | NUR ---
Pt. discharged to home with Rx, verbalized understanding of discharge instructions. RLQ JEREMY drain clean, dry and intact.
[2018-04-26 16:00] VITALS: BP 118/66
[2018-04-27 03:19] LABS: HEMOGLOBIN A1C 9.8 % (4.8-5.6)
[2018-04-27] MEDS ORDERED: POTASSIUM CHLORIDE 20 MEQ TABLET.ER. PO SCH (08:00)
[2018-06-02] MEDS ORDERED: CEFP200T PO (15:24)
[2018-06-02] MEDS ORDERED: OXYC5CAP PO (15:24)
== END 2018-04-26 16:00 | disposition home or self-care (01) | DRG 871 ==
LOC: ER 17:13 → 1 WEST ICU 19:34 → 4 NORTH 04-22 12:55
PROVIDERS: ADMIT Family Medicine; ATTEND Family Medicine
PROC: 0W9G30Z Drainage of Peritoneal Cavity with Drainage Device, Percutaneous Approach (ICD-10-PCS; principal; 2018-04-21)
DX: A41.9 Sepsis, unspecified organism (principal); E43 Unspecified severe protein-calorie malnutrition; K63.1 Perforation of intestine (nontraumatic); K65.1 Peritoneal abscess; K57.91 Diverticulosis of intestine, part unspecified, without perforation or abscess with bleeding; Z68.1 Body mass index [BMI] 19.9 or less, adult; D64.9 Anemia, unspecified; I10 Essential (primary) hypertension; E11.65 Type 2 diabetes mellitus with hyperglycemia; E78.00 Pure hypercholesterolemia, unspecified; E78.5 Hyperlipidemia, unspecified; M19.90 Unspecified osteoarthritis, unspecified site; E87.6 Hypokalemia; I25.10 Atherosclerotic heart disease of native coronary artery without angina pectoris; J44.9 Chronic obstructive pulmonary disease, unspecified; R74.0 Nonspecific elevation of levels of transaminase and lactic acid dehydrogenase [LDH]; B96.20 Unspecified Escherichia coli [E. coli] as the cause of diseases classified elsewhere; B96.1 Klebsiella pneumoniae [K. pneumoniae] as the cause of diseases classified elsewhere; K21.9 Gastro-esophageal reflux disease without esophagitis; K59.00 Constipation, unspecified; N40.0 Benign prostatic hyperplasia without lower urinary tract symptoms; Z87.891 Personal history of nicotine dependence; Z90.49 Acquired absence of other specified parts of digestive tract; Z95.5 Presence of coronary angioplasty implant and graft; Z91.040 Latex allergy status; Z79.899 Other long term (current) drug therapy
CPT/HCPCS: 36415; 49406; 71045; 74177; 80048; 80053; 80202; 81001; 82274; 82962; 83036; 83605; 84145; 85007; 85025; 85610; 87040; 87071; 87075; 87186; 87493; 87641; 93005; 93306; 94640; 94760; 96365; 96367; 96372; 99152; A4215; C1729; C1894; C9113; J1815; J2248; J2250; J2270; J2543; J3010; J3370; J7030; J7040; J7050; J7613; Q9966; Q9967; 99285-25; G0378

== ENCOUNTER 2018-04-30 10:10 | Outpatient (CLI) | payer MEDICARE, BC ==
[~2018-04-30] VITALS: Ht 177.8 cm; Wt 63.5 kg
[~2018-04-30 10:10] MED LIST changes: +CIPR500T94 PO; +INSU100I13 SQ; +LACT1CAP19 PO; +SALI44.3 PO
[2018-04-30] MEDS ORDERED: IOHEXOL 240 MG/ML 50ML VIAL. ONE (10:20)
[2018-04-30 10:36] VITALS: BP 140/69
[2018-04-30] MEDS ORDERED: METF500T16 PO (10:45)
[2018-04-30] MEDS ORDERED: IOHEXOL 240 MG/ML 50ML VIAL. IJ ONE (11:15)
[2018-04-30] MEDS ORDERED: CONTRAST GIVEN. MC PRN (11:30)
--- NOTE | 2018-04-30 12:18 | RAD ---
04/30/2018 1. Abscessogram 2. Removal of right pelvic drainage catheter Discussion: Patient is an 82-year-old male with history of a right pelvic abscess, most likely diverticular in nature. Patient is status post placement of a CT guided drainage catheter. Follow-up CT scan demonstrates no significant residual collection. The patient reports no significant output. A timeout procedure was performed. Small amount of contrast was administered through the pre-existing catheter demonstrating no significant residual cavity no communication with the bowel. Catheter was therefore removed. Sterile dressings were applied. No immediate complications were identified. Total fluoroscopy time: 0.4 MIN Dose area product: 3 Gycm2 Impression: No significant residual cavity or fistulous communication with the bowel is identified fluoroscopically. Right pelvic drainage catheter was removed.
== END 2018-04-30 11:15 | disposition home or self-care (01) ==
LOC: INTRAD 10:10
PROVIDERS: ATTEND Surgery
DX: K65.1 Peritoneal abscess (principal); Z98.890 Other specified postprocedural states; Z91.040 Latex allergy status
CPT/HCPCS: 49424; 76080; Q9966

== ENCOUNTER 2018-05-10 10:57 | Inpatient (IN) | payer MEDICARE, BC ==
[~2018-05-10] VITALS: Ht 177.8 cm; Wt 62.6 kg
[2018-05-10] MEDS ORDERED: IV NORMAL SALINE 500ML BAG 500 ML IV ONE (11:30)
[2018-05-10] MEDS ORDERED: HYOSCYAMINE 0.125 MG TAB.RAPDIS PO ONE (11:30)
[2018-05-10] MEDS ORDERED: ONDANSETRON PF 4 MG/2 ML VIAL. IV ONE (11:30)
--- NOTE | 2018-05-10 11:34 | PHYS DOC ---
Past Medical History Past Medical History: CAD, COPD, Diabetes-Type II, High Cholesterol, Hypertension, Other Additional Past Medical Histor: enlarged prostate Past Surgical History: Cholecystectomy, TURP, Other Additional Past Surgical Histo: cardiac cath with stent; Alcohol Use: Rarely Drug Use: None Adult General Chief Complaint Chief Complaint: ABDOMINAL PAIN HPI HPI Patient is a 82 year old male presents with lower abdominal pain that's been getting worse over the past 48 hours. Patient was recently admitted to the hospital for the same thing and found to have an abscess. He had the drain removed 3 days ago. Since that time was doing well on the first day post drain removal but is been getting worse over the past 24-48 hours. Patient has noted fatigue since the initial abscess was noted and that continues. No fevers. No nausea or vomiting. Intermittent constipation but his last bowel movement was this morning and was normal, no blood, no black tarry stool. Patient has had an approximate 20-25 pound weight loss since this started of these symptoms.[] Review of Systems Review of Systems Constitutional: Denies fever or chills [] Eyes: Denies change in visual acuity, redness, or eye pain [] HENT: Denies nasal congestion or sore throat [] Respiratory: Denies cough or shortness of breath [] Cardiovascular: No chest pain or palpitations[] GI: See history of present illness[] : Denies dysuria or hematuria [] Musculoskeletal: Denies back pain or joint pain [] Integument: Denies rash or skin lesions [] Neurologic: Denies headache, focal weakness or sensory changes [] Endocrine: Denies polyuria or polydipsia [] All other systems were reviewed and found to be within normal limits, except as documented in this note. Current Medications Current Medications Current Medications Medications (Trade) Dose Ordered Sig/Annie Start Time Stop Time Status Last Admin Dose Admin Ciprofloxacin/ Dextrose 200 ml @ 200 mls/hr 1X ONCE 05/10/18 14:30 05/10/18 15:29 Hyoscyamine (Anaspaz) 0.125 mg ONCE ONCE 05/10/18 11:30 05/10/18 11:32 DC 05/10/18 12:07 0.125 MG Info (CONTRAST GIVEN -- Rx MONITORING) 1 each PRN DAILY PRN 05/10/18 12:00 05/12/18 11:59 Iohexol (Omnipaque 240 Mg/ml) 30 ml 1X ONCE 05/10/18 12:00 05/10/18 12:01 DC 05/10/18 12:00 30 ML Iohexol (Omnipaque 300 Mg/ml) 75 ml 1X ONCE 05/10/18 12:00 05/10/18 12:01 DC 05/10/18 13:08 75 ML Metronidazole 100 ml @ 100 mls/hr 1X ONCE 05/10/18 14:30 05/10/18 15:29 Ondansetron HCl (Zofran) 4 mg 1X ONCE 05/10/18 11:30 05/10/18 11:32 DC 05/10/18 12:09 4 MG Sodium Chloride 500 ml @ 500 mls/hr 1X ONCE 05/10/18 11:30 05/10/18 12:29 DC 05/10/18 12:04 500 MLS/HR Allergies Allergies Allergies Coded Allergies Type Severity Reaction Last Updated Verified latex Allergy Intermediate rash/blisters, 01/21/18 Yes Physical Exam Physical Exam Constitutional: Well developed, well nourished, no acute distress, non-toxic appearance. [] HENT: Normocephalic, atraumatic, bilateral external ears normal, oropharynx moist, no oral exudates, nose normal. [] Eyes: PERRLA, EOMI, conjunctiva normal, no discharge. [] Neck: Normal range of motion, no tenderness, supple, no stridor. [] Cardiovascular:Heart rate is covering around 100 with a regular rhythm, no murmur [] Lungs & Thorax: Bilateral breath sounds clear to auscultation [] Abdomen: Bowel sounds normal, soft, mild lower abdominal tenderness, no rebound , no guarding, no rigidity, drain sites are closed, clean, dry, no erythema, no masses, no pulsatile masses. [] Skin: Warm, dry, no erythema, no rash. [] Back: No tenderness, no CVA tenderness. [] Extremities: No tenderness, no cyanosis, no clubbing, ROM intact, no edema. [] Neurologic: Alert and oriented X 3, normal motor function, normal sensory function, no focal deficits noted. [] Psychologic: Affect normal, judgement normal, mood normal. [] Current Patient Data Vital Signs Vital Signs Date Time Temp Pulse Resp B/P (MAP) Pulse Ox O2 Delivery O2 Flow Rate FiO2 05/10/18 11:21 97.7 102 29 159/77 (104) 98 Room Air 97.7 Lab Values Laboratory Tests Test 05/10/18 11:55 05/10/18 12:30 White Blood Count 12.9 x10^3/uL (4.0-11.0) H Red Blood Count 4.62 x10^6/uL (4.30-5.70) Hemoglobin 13.2 g/dL (13.0-17.5) Hematocrit 40.4 % (39.0-53.0) Mean Corpuscular Volume 88 fL (79-100) Mean Corpuscular Hemoglobin 29 pg (25-35) Mean Corpuscular Hemoglobin Concent 33 g/dL (31-37) Red Cell Distribution Width 14.5 % (11.5-14.5) Platelet Count 322 x10^3/uL (140-400) Neutrophils (%) (Auto) 79 % (31-73) H Lymphocytes (%) (Auto) 10 % (24-48) L Monocytes (%) (Auto) 8 % (0-9) Eosinophils (%) (Auto) 3 % (0-3) Basophils (%) (Auto) 0 % (0-3) Neutrophils # (Auto) 10.2 x10^3uL (1.8-7.7) H Lymphocytes # (Auto) 1.3 x10^3/uL (1.0-4.8) Monocytes # (Auto) 1.1 x10^3/uL (0.0-1.1) Eosinophils # (Auto) 0.3 x10^3/uL (0.0-0.7) Basophils # (Auto) 0.0 x10^3/uL (0.0-0.2) Prothrombin Time 14.2 SEC (11.7-14.0) H Prothrombin Time INR 1.1 (0.8-1.1) Sodium Level 132 mmol/L (136-145) L Potassium Level 4.8 mmol/L (3.5-5.1) Chloride Level 94 mmol/L (98-107) L Carbon Dioxide Level 31 mmol/L (21-32) Anion Gap 7 (6-14) Blood Urea Nitrogen 21 mg/dL (8-26) Creatinine 1.1 mg/dL (0.7-1.3) Estimated GFR (Cockcroft-Gault) 64.2 BUN/Creatinine Ratio 19 (6-20) Glucose Level 392 mg/dL (70-99) H Calcium Level 9.4 mg/dL (8.5-10.1) Total Bilirubin 0.4 mg/dL (0.2-1.0) Aspartate Amino Transferase (AST) 48 U/L (15-37) H Alanine Aminotransferase (ALT) 86 U/L (16-63) H Alkaline Phosphatase 112 U/L (46-116) Troponin I Quantitative < 0.017 ng/mL (0.000-0.055) Total Protein 7.6 g/dL (6.4-8.2) Albumin 2.6 g/dL (3.4-5.0) L Albumin/Globulin Ratio 0.5 (1.0-1.7) L Lipase 212 U/L (73-393) Urine Collection Type Unknown Urine Color Yellow Urine Clarity Clear Urine pH 6.0 Urine Specific [place] >=1.030 Urine Protein Negative mg/dL (NEG-TRACE) Urine Glucose (UA) >=1000 mg/dL (NEG) Urine Ketones (Stick) Negative mg/dL (NEG) Urine Blood Negative (NEG) Urine Nitrite Negative (NEG) Urine Bilirubin Negative (NEG) Urine Urobilinogen Dipstick 1.0 mg/dL (0.2 mg/dL) Urine Leukocyte Esterase Negative (NEG) Urine RBC Occ /HPF (0-2) Urine WBC Occ /HPF (0-4) Urine Squamous Epithelial Cells Many /LPF Urine Bacteria 0 /HPF (0-FEW) Urine Yeast Present /HPF Laboratory Tests 05/10/18 11:55 Laboratory Tests 05/10/18 11:55 EKG EKG EKG shows a sinus tachycardia at 104 bpm, no ST elevation, PACs are present, normal axis at 75, QTC of 418 ms. Interpreted by me at 1140[] Radiology/Procedures Radiology/Procedures CT abdomen/pelvis with contrast 05/10/2018 1:05 PM INDICATION: Lower abdominal pain with recent drain removal from abscess. COMPARISON: CT abdomen/pelvis April 26, 2018 TECHNIQUE: Multiple axial CT images of the abdomen and pelvis were obtained after the intravenous administration of 60 mL Omnipaque 300 . Coronal and sagittal reformats are provided. FINDINGS: Mild interstitial changes are identified at the right lung base, likely secondary to subsegmental atelectasis. There is a 4 mm solid noncalcified pulmonary nodule in the right lower lobe (series 2, image 6). Stable 9 mm hypoattenuating lesion in the inferior right hepatic lobe. It is nonenlarged. Bladder surgically absent. No intrahepatic or extra hepatic biliary ductal dilatation. Pancreas is normal in appearance. Stable calcification involving the lateral limb of left adrenal gland. Right adrenal gland is normal in appearance. Abdominal aorta is normal in course and caliber with moderate calcified atheromatous plaque. There has been interval below the surgical drain in the right lower pelvis. There is reaccumulation of fluid and gas with a multilobulated collection measuring 6 x 11 x 7 cm. There is adjacent fat stranding within the mesentery. Findings appear to communicate with the sigmoid colon with suggestion of oral contrast within this collection (series 2, images 69-62). Kidneys enhance symmetrically. Similar hypoattenuating lesion suggestive of simple cysts. Urinary bladder is within normal limits given degree of distention. Reactive lymph nodes are identified within the mesentery. No pathologically enlarged lymph nodes are identified. No suspicious osseous abnormality is identified. IMPRESSION: Persistent inflammatory changes are identified involving the colon with reaccumulation of a gas and fluid containing multilobulated cavity within the central lower pelvis. Findings are concerning for an abscess. This collection contains oral contrast suggestive of communication between the sigmoid colon and the collection. There is extensive diverticulosis with associated wall thickening which may be seen in setting of diverticulitis. No gas is identified within the urinary bladder.[] Course & Med Decision Making Course & Med Decision Making Pertinent Labs and Imaging studies reviewed. (See chart for details) ED course: Patient arrived, was placed in bed, tolerated exam well. Patient was able to tolerate oral contrast. After the return of lab and imaging findings, these were discussed with the patient and family voiced understanding. Consultation was made with hospitalist service as well as the surgical service that had previously cared for him. Patient was admitted with IV antibiotics, and in improved condition. Medical decision making: Patient appears to have an abdominal abscess based on imaging. He has been given IV fluids and antibiotics. And is being admitted to the hospital. No evidence of bladder perforation.[] Dragon Disclaimer Dragon Disclaimer This electronic medical record was generated, in whole or in part, using a voice recognition dictation system. Departure Departure Impression: Primary Impression: Diverticular disease of intestine with perforation and abscess Disposition: 09 ADMITTED INPATIENT Admitting Physician: Kierra Marcos Condition: IMPROVED Referrals: CARISSA OVALLE MD (PCP) YAKELIN BECERRA DO May 10, 2018 11:34
[2018-05-10] MEDS ORDERED: IOHEXOL 240 MG/ML 50ML VIAL. PO ONE (12:00)
[2018-05-10] MEDS ORDERED: IOHEXOL 300 MG/ML 100ML VIAL. IV ONE (12:00)
[2018-05-10] MEDS ORDERED: CONTRAST GIVEN. MC PRN (12:00)
[2018-05-10 12:04] LABS: BASO % 0 % (0-3); EOS # 0.3 x10^3/uL (0.0-0.7); EOS % 3 % (0-3); HEMATOCRIT 40.4 % (39.0-53.0); HEMOGLOBIN 13.2 g/dL (13.0-17.5); LYMPH # 1.3 x10^3/uL (1.0-4.8); LYMPH % 10 % (24-48); MEAN CORPUSCULAR HEMOGLOBIN 29 pg (25-35); MEAN CORPUSCULAR HGB CONC 33 g/dL (31-37); MEAN CORPUSCULAR VOLUME 88 fL (79-100); MONO # 1.1 x10^3/uL (0.0-1.1); MONO % 8 % (0-9); NEUT # 10.2 x10^3uL (1.8-7.7); NEUT % 79 % (31-73); PLATELET COUNT 322 x10^3/uL (140-400); RED BLOOD COUNT 4.62 x10^6/uL (4.30-5.70); RED CELL DISTRIBUTION WIDTH 14.5 % (11.5-14.5); WHITE BLOOD COUNT 12.9 x10^3/uL (4.0-11.0)
[2018-05-10 12:12] LABS: PROTHROMBIN TIME PATIENT 14.2 SEC (11.7-14.0)
[2018-05-10 12:17] LABS: CALCIUM 9.4 mg/dL (8.5-10.1); CREATININE 1.1 mg/dL (0.7-1.3); GFR 64.2; POTASSIUM 4.8 mmol/L (3.5-5.1)
[2018-05-10 12:22] LABS: ALBUMIN 2.6 g/dL (3.4-5.0); ALBUMIN/GLOBULIN RATIO 0.5 (1.0-1.7); TOTAL BILIRUBIN 0.4 mg/dL (0.2-1.0); TOTAL PROTEIN 7.6 g/dL (6.4-8.2)
[2018-05-10 12:42] LABS: BILIRUBIN,URINE NEGATIVE (NEG); CLARITY,URINE CLEAR; COLOR,URINE YELLOW; NITRITE,URINE NEGATIVE (NEG); PROTEIN,URINE NEGATIVE (NEG-TRACE)
[2018-05-10 12:56] LABS: BACTERIA,URINE 0 /HPF (0-FEW); RBC,URINE OCC /HPF (0-2); SQUAMOUS EPITHELIAL CELL,UR MANY /LPF; WBC,URINE OCC /HPF (0-4); YEAST,URINE PRESENT /HPF
--- NOTE | 2018-05-10 13:56 | RAD ---
PQRS Compliance Statement: One or more of the following individualized dose reduction techniques were utilized for this examination: 1. Automated exposure control 2. Adjustment of the mA and/or kV according to patient size 3. Use of iterative reconstruction technique CT abdomen/pelvis with contrast 05/10/2018 1:05 PM INDICATION: Lower abdominal pain with recent drain removal from abscess. COMPARISON: CT abdomen/pelvis April 26, 2018 TECHNIQUE: Multiple axial CT images of the abdomen and pelvis were obtained after the intravenous administration of 60 mL Omnipaque 300 . Coronal and sagittal reformats are provided. FINDINGS: Mild interstitial changes are identified at the right lung base, likely secondary to subsegmental atelectasis. There is a 4 mm solid noncalcified pulmonary nodule in the right lower lobe (series 2, image 6). Stable 9 mm hypoattenuating lesion in the inferior right hepatic lobe. It is nonenlarged. Bladder surgically absent. No intrahepatic or extra hepatic biliary ductal dilatation. Pancreas is normal in appearance. Stable calcification involving the lateral limb of left adrenal gland. Right adrenal gland is normal in appearance. Abdominal aorta is normal in course and caliber with moderate calcified atheromatous plaque. There has been interval below the surgical drain in the right lower pelvis. There is reaccumulation of fluid and gas with a multilobulated collection measuring 6 x 11 x 7 cm. There is adjacent fat stranding within the mesentery. Findings appear to communicate with the sigmoid colon with suggestion of oral contrast within this collection (series 2, images 69-62). Kidneys enhance symmetrically. Similar hypoattenuating lesion suggestive of simple cysts. Urinary bladder is within normal limits given degree of distention. Reactive lymph nodes are identified within the mesentery. No pathologically enlarged lymph nodes are identified. No suspicious osseous abnormality is identified. IMPRESSION: Persistent inflammatory changes are identified involving the colon with reaccumulation of a gas and fluid containing multilobulated cavity within the central lower pelvis. Findings are concerning for an abscess. This collection contains oral contrast suggestive of communication between the sigmoid colon and the collection. There is extensive diverticulosis with associated wall thickening which may be seen in setting of diverticulitis. No gas is identified within the urinary bladder. Electronically signed by: Misti Underwood MD (05/10/2018 1:53 PM) [id number]
[2018-05-10] MEDS ORDERED: CIPROFLOXACIN 400MG PREMIX 200 ML IV ONE (14:30)
[2018-05-10] MEDS ORDERED: ONDANSETRON PF 4 MG/2 ML VIAL. IV PRN (14:45)
[2018-05-10] MEDS ORDERED: MORPHINE SULFATE 4 MG/ML VIAL. IV PRN (14:45)
[2018-05-10] MEDS ORDERED: ACETAMINOPHEN 325 MG TABLET. PO PRN (14:45)
--- NOTE | 2018-05-10 15:34 | PDOC2 ---
CONSULT Date of Consult Date of Consult DATE: 05/10/18 TIME: 15:29 Reason for Consult Reason for Consult: abd abscess Referring Physician Referring Physician: Rani Identification/Chief Complaint Chief Complaint abd pain Source Source: Caregiver, Chart review, Patient History of Present Illness Reason for Visit: 82 yo M with recent admission for abd abscess, felt to be secondary to perforated diverticulitis, treated with drainage. This was removed last week, but pain returned. He has also been noted to be fatigued. Pt seen in ER accompanied by supportive . Past Medical History Cardiovascular: CAD, HTN, Hyperlipidemia Pulmonary: COPD CENTRAL NERVOUS SYSTEM: Other Musculoskeletal: Osteoarthritis Renal/: Benign prostatic enlarg. Endocrine: Diabetes Past Surgical History Past Surgical History: Cholecystectomy, Hernia Repair, Other Family History Family History: No Significant, High Cholestrol Social History ALCOHOL: rare Drugs: None Lives: with Family Current Medications Current Medications Current Medications Hyoscyamine (Anaspaz) 0.125 mg ONCE ONCE PO Last administered on 05/10/18at 12: 07; Start 05/10/18 at 11:30; Stop 05/10/18 at 11:32; Status DC Ondansetron HCl (Zofran) 4 mg 1X ONCE IV Last administered on 05/10/18at 12:09 ; Start 05/10/18 at 11:30; Stop 05/10/18 at 11:32; Status DC Sodium Chloride 500 ml @ 500 mls/hr 1X ONCE IV Last administered on at 12:04; Start 05/10/18 at 11:30; Stop 05/10/18 at 12:29; Status DC Iohexol (Omnipaque 240 Mg/ml) 30 ml 1X ONCE PO Last administered on 05/10/18at 12:00; Start 05/10/18 at 12:00; Stop 05/10/18 at 12:01; Status DC Iohexol (Omnipaque 300 Mg/ml) 75 ml 1X ONCE IV Last administered on 05/10/18at 13:08; Start 05/10/18 at 12:00; Stop 05/10/18 at 12:01; Status DC Info (CONTRAST GIVEN -- Rx MONITORING) 1 each PRN DAILY PRN MC SEE COMMENTS; Start 05/10/18 at 12:00; Stop 05/12/18 at 11:59 Ciprofloxacin/ Dextrose 200 ml @ 200 mls/hr 1X ONCE IV ; Start 05/10/18 at 14: 30; Stop 05/10/18 at 15:29; Status DC Metronidazole 100 ml @ 100 mls/hr 1X ONCE IV ; Start 05/10/18 at 14:30; Stop 05/10/18 at 15:29; Status DC Ondansetron HCl (Zofran) 4 mg PRN Q8HRS PRN IV NAUSEA/VOMITING; Start 05/10/18 at 14:45; Stop 05/11/18 at 14:44 Morphine Sulfate (Morphine Sulfate) 2 mg PRN Q2HR PRN IV PAIN; Start 05/10/18 at 14:45; Stop 05/11/18 at 14:44 Sodium Chloride 1,000 ml @ 125 mls/hr Q8H IV ; Start 05/10/18 at 15:00; Stop at 14:59 Acetaminophen (Tylenol) 650 mg PRN Q4HRS PRN PO FEVER; Start 05/10/18 at 14:45 ; Stop 05/11/18 at 14:44 Active Scripts Active Cipro (Ciprofloxacin Hcl) 500 Mg Tablet 1 Tab PO BID 14 Days Biotene Moisturizing Mouth (Saliva Stimulant Agents Comb.3) 44.3 Ml Mes[place] 2 Mesa PO PRN Q15MIN PRN 30 Days Lantus Solostar (Insulin Glargine,Hum.rec.anlog) 100 Unit/1 Ml Insuln.pen 12 Units SQ DAILY10 30 Days Culturelle (Lactobacillus Rhamnosus Gg) 1 Each Cap.sprink 1 Cap PO BID 28 Days Lipitor (Atorvastatin Calcium) 40 Mg Tablet 1 Tab PO QHS Aspirin Ec (Aspirin) 81 Mg Tablet.dr 81 Mg PO DAILYWBKFT Brilinta (Ticagrelor) 90 Mg Tablet 90 Mg PO BID Reported Metformin Hcl 500 Mg Tablet 500 Mg PO BIDWMEALS Soma (Carisoprodol) 350 Mg Tablet 1 Tab PO BID Omeprazole 40 Mg Capsule.dr 1 Cap PO DAILY Symbicort 80-4.5 Mcg Inhaler (Budesonide/Formoterol Fumarate) 10.2 Gm Hfa.aer.ad 1 Puff IH BID Amaryl (Glimepiride) 4 Mg Tablet 1 Tab PO DAILY Amlodipine Besylate 5 Mg Tablet 5 Mg PO DAILY Carvedilol (Carvedilol) 12.5 Mg Tablet 1 Tab PO BID Colestipol Hcl 1 Gm Tablet 2 Gm PO 1X Magnesium Oxide 400 Mg Tablet 250 Tab PO DAILY Vitamin D3 (Cholecalciferol (Vitamin D3)) 1,000 Unit Tablet 2,000 Tab PO DAILY Allergies Allergies: Coded Allergies: latex (Verified Allergy, Intermediate, rash/blisters, , 01/21/18) ROS General: YES: Fatigue Gastrointestinal: Yes Abdominal Pain Physical Exam General: Alert, Oriented X3, Cooperative, No acute distress HEENT: Atraumatic Abdomen: Soft, Other (mild TTP LLQ) Extremities: No clubbing, No cyanosis Skin: No rashes, No breakdown Neuro: Normal speech, Sensation intact Psych/Mental Status: Mental status NL, Mood NL Vitals VITALS Vital Signs Date Time Temp Pulse Resp B/P (MAP) Pulse Ox O2 Delivery O2 Flow Rate FiO2 05/10/18 11:21 97.7 102 29 159/77 (104) 98 Room Air 97.7 Labs Labs Laboratory Tests Test 05/10/18 11:55 05/10/18 12:30 White Blood Count 12.9 x10^3/uL (4.0-11.0) Red Blood Count 4.62 x10^6/uL (4.30-5.70) Hemoglobin 13.2 g/dL (13.0-17.5) Hematocrit 40.4 % (39.0-53.0) Mean Corpuscular Volume 88 fL (79-100) Mean Corpuscular Hemoglobin 29 pg (25-35) Mean Corpuscular Hemoglobin Concent 33 g/dL (31-37) Red Cell Distribution Width 14.5 % (11.5-14.5) Platelet Count 322 x10^3/uL (140-400) Neutrophils (%) (Auto) 79 % (31-73) Lymphocytes (%) (Auto) 10 % (24-48) Monocytes (%) (Auto) 8 % (0-9) Eosinophils (%) (Auto) 3 % (0-3) Basophils (%) (Auto) 0 % (0-3) Neutrophils # (Auto) 10.2 x10^3uL (1.8-7.7) Lymphocytes # (Auto) 1.3 x10^3/uL (1.0-4.8) Monocytes # (Auto) 1.1 x10^3/uL (0.0-1.1) Eosinophils # (Auto) 0.3 x10^3/uL (0.0-0.7) Basophils # (Auto) 0.0 x10^3/uL (0.0-0.2) Prothrombin Time 14.2 SEC (11.7-14.0) Prothromb Time International Ratio 1.1 (0.8-1.1) Sodium Level 132 mmol/L (136-145) Potassium Level 4.8 mmol/L (3.5-5.1) Chloride Level 94 mmol/L (98-107) Carbon Dioxide Level 31 mmol/L (21-32) Anion Gap 7 (6-14) Blood Urea Nitrogen 21 mg/dL (8-26) Creatinine 1.1 mg/dL (0.7-1.3) Estimated GFR (Cockcroft-Gault) 64.2 BUN/Creatinine Ratio 19 (6-20) Glucose Level 392 mg/dL (70-99) Calcium Level 9.4 mg/dL (8.5-10.1) Total Bilirubin 0.4 mg/dL (0.2-1.0) Aspartate Amino Transf (AST/SGOT) 48 U/L (15-37) Alanine Aminotransferase (ALT/SGPT) 86 U/L (16-63) Alkaline Phosphatase 112 U/L (46-116) Troponin I Quantitative < 0.017 ng/mL (0.000-0.055) Total Protein 7.6 g/dL (6.4-8.2) Albumin 2.6 g/dL (3.4-5.0) Albumin/Globulin Ratio 0.5 (1.0-1.7) Lipase 212 U/L (73-393) Urine Collection Type Unknown Urine Color Yellow Urine Clarity Clear Urine pH 6.0 Urine Specific [place] >=1.030 Urine Protein Negative mg/dL (NEG-TRACE) Urine Glucose (UA) >=1000 mg/dL (NEG) Urine Ketones (Stick) Negative mg/dL (NEG) Urine Blood Negative (NEG) Urine Nitrite Negative (NEG) Urine Bilirubin Negative (NEG) Urine Urobilinogen Dipstick 1.0 mg/dL (0.2 mg/dL) Urine Leukocyte Esterase Negative (NEG) Urine RBC Occ /HPF (0-2) Urine WBC Occ /HPF (0-4) Urine Squamous Epithelial Cells Many /LPF Urine Bacteria 0 /HPF (0-FEW) Urine Yeast Present /HPF Laboratory Tests Test 05/10/18 11:55 05/10/18 12:30 White Blood Count 12.9 x10^3/uL (4.0-11.0) Red Blood Count 4.62 x10^6/uL (4.30-5.70) Hemoglobin 13.2 g/dL (13.0-17.5) Hematocrit 40.4 % (39.0-53.0) Mean Corpuscular Volume 88 fL (79-100) Mean Corpuscular Hemoglobin 29 pg (25-35) Mean Corpuscular Hemoglobin Concent 33 g/dL (31-37) Red Cell Distribution Width 14.5 % (11.5-14.5) Platelet Count 322 x10^3/uL (140-400) Neutrophils (%) (Auto) 79 % (31-73) Lymphocytes (%) (Auto) 10 % (24-48) Monocytes (%) (Auto) 8 % (0-9) Eosinophils (%) (Auto) 3 % (0-3) Basophils (%) (Auto) 0 % (0-3) Neutrophils # (Auto) 10.2 x10^3uL (1.8-7.7) Lymphocytes # (Auto) 1.3 x10^3/uL (1.0-4.8) Monocytes # (Auto) 1.1 x10^3/uL (0.0-1.1) Eosinophils # (Auto) 0.3 x10^3/uL (0.0-0.7) Basophils # (Auto) 0.0 x10^3/uL (0.0-0.2) Prothrombin Time 14.2 SEC (11.7-14.0) Prothromb Time International Ratio 1.1 (0.8-1.1) Sodium Level 132 mmol/L (136-145) Potassium Level 4.8 mmol/L (3.5-5.1) Chloride Level 94 mmol/L (98-107) Carbon Dioxide Level 31 mmol/L (21-32) Anion Gap 7 (6-14) Blood Urea Nitrogen 21 mg/dL (8-26) Creatinine 1.1 mg/dL (0.7-1.3) Estimated GFR (Cockcroft-Gault) 64.2 BUN/Creatinine Ratio 19 (6-20) Glucose Level 392 mg/dL (70-99) Calcium Level 9.4 mg/dL (8.5-10.1) Total Bilirubin 0.4 mg/dL (0.2-1.0) Aspartate Amino Transf (AST/SGOT) 48 U/L (15-37) Alanine Aminotransferase (ALT/SGPT) 86 U/L (16-63) Alkaline Phosphatase 112 U/L (46-116) Troponin I Quantitative < 0.017 ng/mL (0.000-0.055) Total Protein 7.6 g/dL (6.4-8.2) Albumin 2.6 g/dL (3.4-5.0) Albumin/Globulin Ratio 0.5 (1.0-1.7) Lipase 212 U/L (73-393) Urine Collection Type Unknown Urine Color Yellow Urine Clarity Clear Urine pH 6.0 Urine Specific [place] >=1.030 Urine Protein Negative mg/dL (NEG-TRACE) Urine Glucose (UA) >=1000 mg/dL (NEG) Urine Ketones (Stick) Negative mg/dL (NEG) Urine Blood Negative (NEG) Urine Nitrite Negative (NEG) Urine Bilirubin Negative (NEG) Urine Urobilinogen Dipstick 1.0 mg/dL (0.2 mg/dL) Urine Leukocyte Esterase Negative (NEG) Urine RBC Occ /HPF (0-2) Urine WBC Occ /HPF (0-4) Urine Squamous Epithelial Cells Many /LPF Urine Bacteria 0 /HPF (0-FEW) Urine Yeast Present /HPF Images Images CT a/p with abd abscess with communication with colon Assessment/Plan Assessment/Plan Perforated recurrent diverticulitis-admit with IV abx and possible drainage. Ideally when stabilized with proceed with surgical exploration and resection. Given reoccurrence, possibility of cancer. Will check CEA. Colonoscopy not indicated, given perforation. Thanks for consult! LUIZA JOHNSON MD May 10, 2018 15:34
[2018-05-10] MEDS: IV NORMAL SALINE 1000ML BAG 1,000 ML IV SCH (15:57)
[2018-05-10 16:00] VITALS: BP 121/67
[2018-05-10] MEDS ORDERED: KETOROLAC 15 MG/ML VIAL. IV ONE (17:30)
[2018-05-10] MEDS ORDERED: fentaNYL PF VIAL 100 MCG/2 ML VIAL IV ONE (17:30)
--- NOTE | 2018-05-10 17:48 | PDOC1 ---
History and Physical Date of Admission Date of Admission DATE: 05/10/18 TIME: 17:43 Identification/Chief Complaint Chief Complaint acute abd pain Source Source: Chart review, Patient History of Present Illness History of Present Illness Mr. Queen, is a 82 year old male presents with acute severe on chronic mild lower abdominal pain that's been getting worse over the past 48 hours. 10/10 pain and tearful. recent admit for abd pain with abd abcess, that req. drain He had the drain removed 3 days ago. Since that time was doing well on the first day post drain removal but is been getting worse over the past 24-48 hours. Patient has had an approximate 20-25 pound weight loss since this started of these symptoms Past Medical History Cardiovascular: CAD, HTN, Hyperlipidemia Pulmonary: COPD CENTRAL NERVOUS SYSTEM: Other Musculoskeletal: Osteoarthritis ENT: No pertinent hx Renal/: Benign prostatic enlarg. Endocrine: Diabetes Past Surgical History Past Surgical History: Cholecystectomy, Hernia Repair, Other Family History Family History: No Significant, High Cholestrol Social History Smoke: No ALCOHOL: rare Drugs: None Current Medications Current Medications Current Medications Hyoscyamine (Anaspaz) 0.125 mg ONCE ONCE PO Last administered on 05/10/18 12: 07; Start 05/10/18 at 11:30; Stop 05/10/18 at 11:32; Status DC Ondansetron HCl (Zofran) 4 mg 1X ONCE IV Last administered on 05/10/18 12:09 ; Start 05/10/18 at 11:30; Stop 05/10/18 at 11:32; Status DC Sodium Chloride 500 ml @ 500 mls/hr 1X ONCE IV Last administered on at 12:04; Start 05/10/18 at 11:30; Stop 05/10/18 at 12:29; Status DC Iohexol (Omnipaque 240 Mg/ml) 30 ml 1X ONCE PO Last administered on 05/10/18at 12:00; Start 05/10/18 at 12:00; Stop 05/10/18 at 12:01; Status DC Iohexol (Omnipaque 300 Mg/ml) 75 ml 1X ONCE IV Last administered on 05/10/18at 13:08; Start 05/10/18 at 12:00; Stop 05/10/18 at 12:01; Status DC Info (CONTRAST GIVEN -- Rx MONITORING) 1 each PRN DAILY PRN MC SEE COMMENTS; Start 05/10/18 at 12:00; Stop 05/12/18 at 11:59 Ciprofloxacin/ Dextrose 200 ml @ 200 mls/hr 1X ONCE IV Last administered on at 15:58; Start 05/10/18 at 14:30; Stop 05/10/18 at 15:29; Status DC Metronidazole 100 ml @ 100 mls/hr 1X ONCE IV Last administered on 05/10/18at 15:57; Start 05/10/18 at 14:30; Stop 05/10/18 at 15:29; Status DC Ondansetron HCl (Zofran) 4 mg PRN Q8HRS PRN IV NAUSEA/VOMITING; Start 05/10/18 at 14:45; Stop 05/11/18 at 14:44 Morphine Sulfate (Morphine Sulfate) 2 mg PRN Q2HR PRN IV PAIN Last administered on 05/10/18at 16:29; Start 05/10/18 at 14:45; Stop 05/10/18 at 17:27 ; Status DC Sodium Chloride 1,000 ml @ 125 mls/hr Q8H IV Last administered on 05/10/18 15 :57; Start 05/10/18 at 15:00; Stop 05/11/18 at 14:59 Acetaminophen (Tylenol) 650 mg PRN Q4HRS PRN PO FEVER; Start 05/10/18 at 14:45 ; Stop 05/11/18 at 14:44 Ciprofloxacin/ Dextrose 200 ml @ 200 mls/hr Q12HR IV ; Start 05/10/18 at 21:00 Metronidazole 100 ml @ 100 mls/hr Q12HR IV ; Start 05/10/18 at 21:00 Morphine Sulfate (Morphine Sulfate) 4 mg PRN Q2HR PRN IV PAIN; Start 05/10/18 at 17:30 Fentanyl Citrate (Fentanyl 2ml Vial) 50 mcg 1X ONCE IV Last administered on at 17:32; Start 05/10/18 at 17:30; Stop 05/10/18 at 17:31; Status DC Ketorolac Tromethamine (Toradol 15mg Vial) 15 mg 1X ONCE IV Last administered on 05/10/18at 17:36; Start 05/10/18 at 17:30; Stop 05/10/18 at 17:31; Status DC Active Scripts Active Cipro (Ciprofloxacin Hcl) 500 Mg Tablet 1 Tab PO BID 14 Days Biotene Moisturizing Mouth (Saliva Stimulant Agents Comb.3) 44.3 Ml Warner 2 Warner PO PRN Q15MIN PRN 30 Days Lantus Solostar (Insulin Glargine,Hum.rec.anlog) 100 Unit/1 Ml Insuln.pen 12 Units SQ DAILY10 30 Days Culturelle (Lactobacillus Rhamnosus Gg) 1 Each Cap.sprink 1 Cap PO BID 28 Days Lipitor (Atorvastatin Calcium) 40 Mg Tablet 1 Tab PO QHS Aspirin Ec (Aspirin) 81 Mg Tablet.dr 81 Mg PO DAILYWBKFT Brilinta (Ticagrelor) 90 Mg Tablet 90 Mg PO BID Reported Metformin Hcl 500 Mg Tablet 500 Mg PO BIDWMEALS Soma (Carisoprodol) 350 Mg Tablet 1 Tab PO BID Omeprazole 40 Mg Capsule.dr 1 Cap PO DAILY Symbicort 80-4.5 Mcg Inhaler (Budesonide/Formoterol Fumarate) 10.2 Gm Hfa.aer.ad 1 Puff IH BID Amaryl (Glimepiride) 4 Mg Tablet 1 Tab PO DAILY Amlodipine Besylate 5 Mg Tablet 5 Mg PO DAILY Carvedilol (Carvedilol) 12.5 Mg Tablet 1 Tab PO BID Colestipol Hcl 1 Gm Tablet 2 Gm PO 1X Magnesium Oxide 400 Mg Tablet 250 Tab PO DAILY Vitamin D3 (Cholecalciferol (Vitamin D3)) 1,000 Unit Tablet 2,000 Tab PO DAILY Allergies Allergies: Coded Allergies: latex (Verified Allergy, Intermediate, rash/blisters, , 01/21/18) ROS General: No: Chills, Night Sweats, Fatigue, Malaise, Appetite, Other PSYCHOLOGICAL ROS: No: Anxiety, Behavioral Disorder, Concentration difficultie , Decreased libido, Depression, Disorientation, Hallucinations, Hostility, Irritablity, Memory difficulties, Mood Swings, Obsessive thoughts, Physical abuse, Sexual abuse, Sleep disturbances, Suicidal ideation, Other Eyes: No Blurry vision, No Decreased vision, No Double vision, No Dry eyes, No Excessive tearing, No Eye Pain, No Itchy Eyes, No Loss of vision, No Photophobia , No Scotomata, No Uses contacts, No Uses glasses, No Other HEENT: No: Heacaches, Visual Changes, Hearing change, Nasal congestion, Nasal discharge, Oral lesions, Sinus pain, Sore Throat, Epistaxis, Sneezing, Snoring, Tinnitus, Vertigo, Vocal changes, Other Respiratory: No: Cough, Hemoptysis, Orthopnea, Pleuritic Pain, Shortness of breath, SOB with excertion, Sputum Changes, Stridor, Tachypnea, Wheezing, Other Cardiovascular: No Chest Pain, No Palpitations, No Orthopnea, No Paroxysmal Noc. Dyspnea, No Edema, No Lt Headedness, No Other Gastrointestinal: Yes Nausea, Yes Abdominal Pain; No Diarrhea, No Constipation, No Melena, No Hematochezia, No Other Genitourinary: No Dysuria, No Frequency, No Incontinence, No Hematuria, No Retention, No Discharge, No Urgency, No Pain, No Flank Pain, No Other, No , No , No , No , No , No , No Musculoskeletal: No Gait Disturbance, No Joint Pain, No Joint Stiffness, No Joint Swelling, No Muscle Pain, No Muscular Weakness, No Pain In:, No Swelling In:, No Other Neurological: No Behavorial Changes, No Bowel/Bladder ControlChng, No Confusion , No Dizziness, No Gait Disturbance, No Headaches, No Impaired Coord/balance, No Memory Loss, No Numbness/Tingling, No Seizures, No Speech Problems, No Tremors, No Visual Changes, No Weakness, No Other Skin: Yes Dry Skin; No Eczema, No Hair Changes, No Lumps, No Mole Changes, No Mottling, No Nail Changes, No Pruritus, No Rash, No Skin Lesion Changes, No Other, No Acne Physical Exam General: Alert, Cooperative, mild distress, moderate distress HEENT: Atraumatic, PERRLA, EOMI, Mucous membr. moist/pink Lungs: Normal air movement Heart: S1S2, RRR, no gallops, no murmurs Abdomen: Other (very ) Rectal Exam: not examined Extremities: No clubbing, No cyanosis, Normal pulses Skin: No rashes, No breakdown, No significant lesion Neuro: Normal speech, Normal tone, Sensation intact Psych/Mental Status: Mental status NL, Mood NL Vitals Vitals Vital Signs Date Time Temp Pulse Resp B/P (MAP) Pulse Ox O2 Delivery O2 Flow Rate FiO2 05/10/18 17:01 Room Air 05/10/18 16:00 97.8 105 18 121/67 (85) 95 97.8 Labs Labs Laboratory Tests Test 05/10/18 11:55 05/10/18 12:30 05/10/18 16:37 White Blood Count 12.9 x10^3/uL (4.0-11.0) Red Blood Count 4.62 x10^6/uL (4.30-5.70) Hemoglobin 13.2 g/dL (13.0-17.5) Hematocrit 40.4 % (39.0-53.0) Mean Corpuscular Volume 88 fL (79-100) Mean Corpuscular Hemoglobin 29 pg (25-35) Mean Corpuscular Hemoglobin Concent 33 g/dL (31-37) Red Cell Distribution Width 14.5 % (11.5-14.5) Platelet Count 322 x10^3/uL (140-400) Neutrophils (%) (Auto) 79 % (31-73) Lymphocytes (%) (Auto) 10 % (24-48) Monocytes (%) (Auto) 8 % (0-9) Eosinophils (%) (Auto) 3 % (0-3) Basophils (%) (Auto) 0 % (0-3) Neutrophils # (Auto) 10.2 x10^3uL (1.8-7.7) Lymphocytes # (Auto) 1.3 x10^3/uL (1.0-4.8) Monocytes # (Auto) 1.1 x10^3/uL (0.0-1.1) Eosinophils # (Auto) 0.3 x10^3/uL (0.0-0.7) Basophils # (Auto) 0.0 x10^3/uL (0.0-0.2) Prothrombin Time 14.2 SEC (11.7-14.0) Prothromb Time International Ratio 1.1 (0.8-1.1) Sodium Level 132 mmol/L (136-145) Potassium Level 4.8 mmol/L (3.5-5.1) Chloride Level 94 mmol/L (98-107) Carbon Dioxide Level 31 mmol/L (21-32) Anion Gap 7 (6-14) Blood Urea Nitrogen 21 mg/dL (8-26) Creatinine 1.1 mg/dL (0.7-1.3) Estimated GFR (Cockcroft-Gault) 64.2 BUN/Creatinine Ratio 19 (6-20) Glucose Level 392 mg/dL (70-99) Calcium Level 9.4 mg/dL (8.5-10.1) Total Bilirubin 0.4 mg/dL (0.2-1.0) Aspartate Amino Transf (AST/SGOT) 48 U/L (15-37) Alanine Aminotransferase (ALT/SGPT) 86 U/L (16-63) Alkaline Phosphatase 112 U/L (46-116) Troponin I Quantitative < 0.017 ng/mL (0.000-0.055) Total Protein 7.6 g/dL (6.4-8.2) Albumin 2.6 g/dL (3.4-5.0) Albumin/Globulin Ratio 0.5 (1.0-1.7) Lipase 212 U/L (73-393) Urine Collection Type Unknown Urine Color Yellow Urine Clarity Clear Urine pH 6.0 Urine Specific [place] >=1.030 Urine Protein Negative mg/dL (NEG-TRACE) Urine Glucose (UA) >=1000 mg/dL (NEG) Urine Ketones (Stick) Negative mg/dL (NEG) Urine Blood Negative (NEG) Urine Nitrite Negative (NEG) Urine Bilirubin Negative (NEG) Urine Urobilinogen Dipstick 1.0 mg/dL (0.2 mg/dL) Urine Leukocyte Esterase Negative (NEG) Urine RBC Occ /HPF (0-2) Urine WBC Occ /HPF (0-4) Urine Squamous Epithelial Cells Many /LPF Urine Bacteria 0 /HPF (0-FEW) Urine Yeast Present /HPF Glucose (Fingerstick) 194 mg/dL (70-99) Laboratory Tests Test 05/10/18 11:55 05/10/18 12:30 05/10/18 16:37 White Blood Count 12.9 x10^3/uL (4.0-11.0) Red Blood Count 4.62 x10^6/uL (4.30-5.70) Hemoglobin 13.2 g/dL (13.0-17.5) Hematocrit 40.4 % (39.0-53.0) Mean Corpuscular Volume 88 fL (79-100) Mean Corpuscular Hemoglobin 29 pg (25-35) Mean Corpuscular Hemoglobin Concent 33 g/dL (31-37) Red Cell Distribution Width 14.5 % (11.5-14.5) Platelet Count 322 x10^3/uL (140-400) Neutrophils (%) (Auto) 79 % (31-73) Lymphocytes (%) (Auto) 10 % (24-48) Monocytes (%) (Auto) 8 % (0-9) Eosinophils (%) (Auto) 3 % (0-3) Basophils (%) (Auto) 0 % (0-3) Neutrophils # (Auto) 10.2 x10^3uL (1.8-7.7) Lymphocytes # (Auto) 1.3 x10^3/uL (1.0-4.8) Monocytes # (Auto) 1.1 x10^3/uL (0.0-1.1) Eosinophils # (Auto) 0.3 x10^3/uL (0.0-0.7) Basophils # (Auto) 0.0 x10^3/uL (0.0-0.2) Prothrombin Time 14.2 SEC (11.7-14.0) Prothromb Time International Ratio 1.1 (0.8-1.1) Sodium Level 132 mmol/L (136-145) Potassium Level 4.8 mmol/L (3.5-5.1) Chloride Level 94 mmol/L (98-107) Carbon Dioxide Level 31 mmol/L (21-32) Anion Gap 7 (6-14) Blood Urea Nitrogen 21 mg/dL (8-26) Creatinine 1.1 mg/dL (0.7-1.3) Estimated GFR (Cockcroft-Gault) 64.2 BUN/Creatinine Ratio 19 (6-20) Glucose Level 392 mg/dL (70-99) Calcium Level 9.4 mg/dL (8.5-10.1) Total Bilirubin 0.4 mg/dL (0.2-1.0) Aspartate Amino Transf (AST/SGOT) 48 U/L (15-37) Alanine Aminotransferase (ALT/SGPT) 86 U/L (16-63) Alkaline Phosphatase 112 U/L (46-116) Troponin I Quantitative < 0.017 ng/mL (0.000-0.055) Total Protein 7.6 g/dL (6.4-8.2) Albumin 2.6 g/dL (3.4-5.0) Albumin/Globulin Ratio 0.5 (1.0-1.7) Lipase 212 U/L (73-393) Urine Collection Type Unknown Urine Color Yellow Urine Clarity Clear Urine pH 6.0 Urine Specific [place] >=1.030 Urine Protein Negative mg/dL (NEG-TRACE) Urine Glucose (UA) >=1000 mg/dL (NEG) Urine Ketones (Stick) Negative mg/dL (NEG) Urine Blood Negative (NEG) Urine Nitrite Negative (NEG) Urine Bilirubin Negative (NEG) Urine Urobilinogen Dipstick 1.0 mg/dL (0.2 mg/dL) Urine Leukocyte Esterase Negative (NEG) Urine RBC Occ /HPF (0-2) Urine WBC Occ /HPF (0-4) Urine Squamous Epithelial Cells Many /LPF Urine Bacteria 0 /HPF (0-FEW) Urine Yeast Present /HPF Glucose (Fingerstick) 194 mg/dL (70-99) VTE Prophylaxis Ordered VTE Prophylaxis Devices: No VTE Pharmacological Prophylaxi: Yes Assessment/Plan Assessment/Plan acute abdominal pain sepsis abdominal abcess, IV abx, surg consult, may need drain, ID consult Severe malnutrition, support admit ANITA ALVARADO MD May 10, 2018 17:48
--- NOTE | 2018-05-10 18:30 | NUR ---
Pt arrived to unit at 1606, by mauro, from ED. Report received from MELINDA Ewing. Admission Dx Abd wall abscess, reoccurring. Spouse at bedside. Pt up ad rahat with steady gait, fall contract signed because Pt is connected to an IV and will need assistance. Allergies verified, Pt expressed he wanted to be a full code but did not want to be intubated, orders obtained to match Pt's request. IVFs and ABTs infusing, Dr Marcos paged for orders, consult to ID called and this nurse spoke with Dr Pizano. Pt triggered positive for sepsis, Dr Marcos and Dr Pizano aware, SURGICAL INSTRUMENT MECHANIC paged per protocol, spoke with Zaira, charger who entered orders for lactic acid and cultures. One set had been drawn at ED. Per ED report, Pt had four loose, incontinent stools, none was collected. Pt on C-Diff precautions per protocol. Admission assessment in progress. Addendum: 05/10/18 at 1925 by OTTO DUBON RN Correction: Pt did not say he did not want to be intubated, Pt said he did not want to be on a ventilator. Orders will reflect that.
[2018-05-10 19:00] VITALS: BP 88/47
[2018-05-10] MEDS ORDERED: ENOXAPARIN 40 MG/0.4 ML SYRINGE. SQ SCH (21:00)
[2018-05-10 23:00] VITALS: BP 94/62
[2018-05-10] MEDS ORDERED: ZOLPIDEM 5 MG TABLET. PO PRN (23:15)
[2018-05-11] VITALS (15 sets, daily range): BP systolic 105–141; BP diastolic 56–80
[2018-05-11] MEDS: IV NORMAL SALINE 1000ML BAG 1,000 ML IV SCH ×2 (00:51→08:26)
[2018-05-11] MEDS: MORPHINE SULFATE 4 MG/ML VIAL. IV PRN ×3 (02:14→13:05)
[2018-05-11 06:31] LABS: BASO % 0 % (0-3); EOS # 0.2 x10^3/uL (0.0-0.7); EOS % 3 % (0-3); HEMATOCRIT 36.5 % (39.0-53.0); HEMOGLOBIN 12.1 g/dL (13.0-17.5); LYMPH # 1.1 x10^3/uL (1.0-4.8); LYMPH % 13 % (24-48); MEAN CORPUSCULAR HEMOGLOBIN 29 pg (25-35); MEAN CORPUSCULAR HGB CONC 33 g/dL (31-37); MEAN CORPUSCULAR VOLUME 88 fL (79-100); MONO # 0.6 x10^3/uL (0.0-1.1); MONO % 7 % (0-9); NEUT # 6.8 x10^3uL (1.8-7.7); NEUT % 77 % (31-73); PLATELET COUNT 255 x10^3/uL (140-400); RED BLOOD COUNT 4.14 x10^6/uL (4.30-5.70); RED CELL DISTRIBUTION WIDTH 14.7 % (11.5-14.5); WHITE BLOOD COUNT 8.8 x10^3/uL (4.0-11.0)
[2018-05-11] MEDS: MEROPENEM 500 MG in IV NORMAL SALINE 50ML 50 ML IV SCH ×3 (06:43→16:51)
[2018-05-11 07:06] LABS: ALBUMIN 1.9 g/dL (3.4-5.0); ALBUMIN/GLOBULIN RATIO 0.5 (1.0-1.7); CALCIUM 8.3 mg/dL (8.5-10.1); CREATININE 0.9 mg/dL (0.7-1.3); POTASSIUM 3.9 mmol/L (3.5-5.1); TOTAL BILIRUBIN 0.9 mg/dL (0.2-1.0); TOTAL PROTEIN 5.8 g/dL (6.4-8.2)
--- NOTE | 2018-05-11 07:32 | PDOC ---
Infectious Disease Note Subjective Subjective Known to service - please see Consult 04/21 (reviewed) and last progress note 04/26. Was d/c'd home on po Cipro On 04/30 F/u CT Impression: No significant residual cavity or fistulous communication with the bowel is identified fluoroscopically. Right pelvic drainage catheter was removed. Abd pain started 05/02 but yesterday it worsened in epigastric area but then migrated to lower abd area. Over the course of the week he became more fatigued. He finished his Cipro on 05/08 but he worsened despite being on it. Developed N/V.. No F/C/S. Did have some loose stool. No rash. some increased urine output. Dry mouth PAST MEDICAL HISTORY: Positive for coronary artery disease, COPD, type 2 diabetes, hypercholesterolemia, hypertension, enlarged prostate. PREVIOUS SURGICAL HISTORY: Includes a cholecystectomy, left shoulder surgery, left inguinal hernia repair, TURP as well as cardiac stents. REVIEW OF SYSTEMS: Otherwise negative except for as mentioned above. ALLERGIES: LISTED LATEX. No antibiotic allergies listed. 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 No alcohol. He is . He has no pets. FAMILY HISTORY: Positive for hypercholesterolemia ROS ROS o/w neg Vital Sign Vital Signs Vital Signs Date Time Temp Pulse Resp B/P (MAP) Pulse Ox O2 Delivery O2 Flow Rate FiO2 05/11/18 06:31 20 Room Air 05/11/18 03:00 98.5 106 105/62 (76) 92 98.5 Physical Exam PHYSICAL EXAM GENERAL: Propped up in bed, alert, NAD HEENT: Pupils equal and reactive. Oral cavity, pharynx has some mild thrush. dentures NECK: Supple, no JVD. LUNGS: Clear to auscultation, soft upper airway wheeze HEART: S1, S2. ABDOMEN: Nondistended, soft. BS present mild tenderness EXTREMITIES: No clubbing, cyanosis or gross edema. SKIN: Warm to touch without signs of rash. NEUROLOGIC: Alert, nonfocal and appropriate. IV Labs Lab Laboratory Tests Test 05/10/18 11:55 05/10/18 12:30 05/10/18 16:37 05/10/18 18:45 White Blood Count 12.9 x10^3/uL (4.0-11.0) Red Blood Count 4.62 x10^6/uL (4.30-5.70) Hemoglobin 13.2 g/dL (13.0-17.5) Hematocrit 40.4 % (39.0-53.0) Mean Corpuscular Volume 88 fL (79-100) Mean Corpuscular Hemoglobin 29 pg (25-35) Mean Corpuscular Hemoglobin Concent 33 g/dL (31-37) Red Cell Distribution Width 14.5 % (11.5-14.5) Platelet Count 322 x10^3/uL (140-400) Neutrophils (%) (Auto) 79 % (31-73) Lymphocytes (%) (Auto) 10 % (24-48) Monocytes (%) (Auto) 8 % (0-9) Eosinophils (%) (Auto) 3 % (0-3) Basophils (%) (Auto) 0 % (0-3) Neutrophils # (Auto) 10.2 x10^3uL (1.8-7.7) Lymphocytes # (Auto) 1.3 x10^3/uL (1.0-4.8) Monocytes # (Auto) 1.1 x10^3/uL (0.0-1.1) Eosinophils # (Auto) 0.3 x10^3/uL (0.0-0.7) Basophils # (Auto) 0.0 x10^3/uL (0.0-0.2) Prothrombin Time 14.2 SEC (11.7-14.0) Prothromb Time International Ratio 1.1 (0.8-1.1) Sodium Level 132 mmol/L (136-145) Potassium Level 4.8 mmol/L (3.5-5.1) Chloride Level 94 mmol/L (98-107) Carbon Dioxide Level 31 mmol/L (21-32) Anion Gap 7 (6-14) Blood Urea Nitrogen 21 mg/dL (8-26) Creatinine 1.1 mg/dL (0.7-1.3) Estimated GFR (Cockcroft-Gault) 64.2 BUN/Creatinine Ratio 19 (6-20) Glucose Level 392 mg/dL (70-99) Calcium Level 9.4 mg/dL (8.5-10.1) Total Bilirubin 0.4 mg/dL (0.2-1.0) Aspartate Amino Transf (AST/SGOT) 48 U/L (15-37) Alanine Aminotransferase (ALT/SGPT) 86 U/L (16-63) Alkaline Phosphatase 112 U/L (46-116) Troponin I Quantitative < 0.017 ng/mL (0.000-0.055) Total Protein 7.6 g/dL (6.4-8.2) Albumin 2.6 g/dL (3.4-5.0) Albumin/Globulin Ratio 0.5 (1.0-1.7) Lipase 212 U/L (73-393) Urine Collection Type Unknown Urine Color Yellow Urine Clarity Clear Urine pH 6.0 Urine Specific [place] >=1.030 Urine Protein Negative mg/dL (NEG-TRACE) Urine Glucose (UA) >=1000 mg/dL (NEG) Urine Ketones (Stick) Negative mg/dL (NEG) Urine Blood Negative (NEG) Urine Nitrite Negative (NEG) Urine Bilirubin Negative (NEG) Urine Urobilinogen Dipstick 1.0 mg/dL (0.2 mg/dL) Urine Leukocyte Esterase Negative (NEG) Urine RBC Occ /HPF (0-2) Urine WBC Occ /HPF (0-4) Urine Squamous Epithelial Cells Many /LPF Urine Bacteria 0 /HPF (0-FEW) Urine Yeast Present /HPF Glucose (Fingerstick) 194 mg/dL (70-99) Lactic Acid Level 0.8 mmol/L (0.4-2.0) Test 05/11/18 05:38 White Blood Count 8.8 x10^3/uL (4.0-11.0) Red Blood Count 4.14 x10^6/uL (4.30-5.70) Hemoglobin 12.1 g/dL (13.0-17.5) Hematocrit 36.5 % (39.0-53.0) Mean Corpuscular Volume 88 fL (79-100) Mean Corpuscular Hemoglobin 29 pg (25-35) Mean Corpuscular Hemoglobin Concent 33 g/dL (31-37) Red Cell Distribution Width 14.7 % (11.5-14.5) Platelet Count 255 x10^3/uL (140-400) Neutrophils (%) (Auto) 77 % (31-73) Lymphocytes (%) (Auto) 13 % (24-48) Monocytes (%) (Auto) 7 % (0-9) Eosinophils (%) (Auto) 3 % (0-3) Basophils (%) (Auto) 0 % (0-3) Neutrophils # (Auto) 6.8 x10^3uL (1.8-7.7) Lymphocytes # (Auto) 1.1 x10^3/uL (1.0-4.8) Monocytes # (Auto) 0.6 x10^3/uL (0.0-1.1) Eosinophils # (Auto) 0.2 x10^3/uL (0.0-0.7) Basophils # (Auto) 0.0 x10^3/uL (0.0-0.2) Micro CT abd 05/10 IMPRESSION: Persistent inflammatory changes are identified involving the colon with reaccumulation of a gas and fluid containing multilobulated cavity within the central lower pelvis. Findings are concerning for an abscess. This collection contains oral contrast suggestive of communication between the sigmoid colon and the collection. There is extensive diverticulosis with associated wall thickening which may be seen in setting of diverticulitis. No gas is identified within the urinary bladder Jayce 04/21 ANAEROBIC-AEROBIC CULTURE Final Final report ANAEROBIC RES 1 Final Bacteroides uniformis 4+ AEROBIC CULT Final Final report AEROBIC RES 1 Final Escherichia coli 4+ AEROBIC RES 2 Final Klebsiella aerogenes 4+ AEROBIC RES 3 Final Mixed skin mireya 1+ ANTIMICROBIAL SUSCEPTIBILITY Final Comment S = Susceptible; I = Intermediate; R = Resistant P = Positive; N = Negative MICS are expressed in micrograms per mL Antibiotic RSLT#1 RSLT#2 RSLT#3 RSLT#4 Amoxicillin/Clavulanic Acid S =4 R>=32 CONTINUED ON NEXT PAGE RUN DATE: 04/26/18 PAGE 2 RUN TIME: 1814 [facility] [address] [place] [address] Jonathan Sauceda M.D., [employer] SPEC: [id number] PATIENT: EDITH SELBY [id number] ( Continued) Procedure Result ANTIMICROBIAL SUSCEPTIBILITY Final (continued) Ampicillin S =4 Cefazolin R>=64 Cefepime S<=0.12 S<=0.12 Ceftriaxone S<=0.25 S<=0.25 Cefuroxime S =4 R =R Ciprofloxacin R>=4 S<=0.25 Ertapenem S<=0.12 S<=0.12 Gentamicin S<=1 S<=1 Imipenem S<=0.25 S =1 Levofloxacin R>=8 S<=0.12 Meropenem S<=0.25 S<=0.25 Piperacillin/Tazobactam S<=4 Tetracycline S<=1 S<=1 Tobramycin S<=1 S<=1 Trimethoprim/Sulfa S<=20 S<=20 Objective Assessment Leukocytosis - better Recurrent diverticulitis Recurrent Abd abscesses - h/o IR drainage 04/21 gram stain with Bacteroides/E. coli (R quinolones), Klebsiella so far (yeast on gram stain) Thrush DM Plan Plan of Care D/c'd Cipro/Flagyl this am Add Meropenem/Zyvox and Micafungin Mycelex kalyan Await IR F/u labs and cults AUNG CASTRO MD May 11, 2018 07:32
[2018-05-11] MEDS: CLOTRIMAZOLE 10 MG TROCHE. MM SCH ×5 (08:25→21:59)
[2018-05-11] MEDS: MICAFUNGIN 100 MG in IV DEXTROSE 5% 100ML 100 ML IV SCH (08:25)
--- NOTE | 2018-05-11 08:36 | EKG ---
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
[2018-05-11] MEDS ORDERED: CIPROFLOXACIN 400MG PREMIX 200 ML IV SCH (09:00)
--- NOTE | 2018-05-11 09:19 | PDOC ---
DAYNE NEWBERRY CUSTOMER CONSULTING MANAGER 05/11/18 0919: SURGICAL PROGRESS NOTE Subjective resting some pain LLQ, epigastric no nausea Vital Signs Vital Signs Date Time Temp Pulse Resp B/P (MAP) Pulse Ox O2 Delivery O2 Flow Rate FiO2 05/11/18 07:00 98.2 84 18 116/70 (85) 92 Room Air 98.2 I&O Intake and Output 05/11/18 06:59 Intake Total 2745 ml Balance 2745 ml Intake Oral 120 ml IV Total 1375 ml Other 1250 ml # Voids 1 General: Alert, Oriented X3, Cooperative, No acute distress Abdomen: Soft, Other (mild TTP LLQ) Labs Laboratory Tests Test 05/10/18 11:55 05/10/18 12:30 05/10/18 16:37 05/10/18 18:45 White Blood Count 12.9 x10^3/uL (4.0-11.0) Red Blood Count 4.62 x10^6/uL (4.30-5.70) Hemoglobin 13.2 g/dL (13.0-17.5) Hematocrit 40.4 % (39.0-53.0) Mean Corpuscular Volume 88 fL (79-100) Mean Corpuscular Hemoglobin 29 pg (25-35) Mean Corpuscular Hemoglobin Concent 33 g/dL (31-37) Red Cell Distribution Width 14.5 % (11.5-14.5) Platelet Count 322 x10^3/uL (140-400) Neutrophils (%) (Auto) 79 % (31-73) Lymphocytes (%) (Auto) 10 % (24-48) Monocytes (%) (Auto) 8 % (0-9) Eosinophils (%) (Auto) 3 % (0-3) Basophils (%) (Auto) 0 % (0-3) Neutrophils # (Auto) 10.2 x10^3uL (1.8-7.7) Lymphocytes # (Auto) 1.3 x10^3/uL (1.0-4.8) Monocytes # (Auto) 1.1 x10^3/uL (0.0-1.1) Eosinophils # (Auto) 0.3 x10^3/uL (0.0-0.7) Basophils # (Auto) 0.0 x10^3/uL (0.0-0.2) Prothrombin Time 14.2 SEC (11.7-14.0) Prothromb Time International Ratio 1.1 (0.8-1.1) Sodium Level 132 mmol/L (136-145) Potassium Level 4.8 mmol/L (3.5-5.1) Chloride Level 94 mmol/L (98-107) Carbon Dioxide Level 31 mmol/L (21-32) Anion Gap 7 (6-14) Blood Urea Nitrogen 21 mg/dL (8-26) Creatinine 1.1 mg/dL (0.7-1.3) Estimated GFR (Cockcroft-Gault) 64.2 BUN/Creatinine Ratio 19 (6-20) Glucose Level 392 mg/dL (70-99) Calcium Level 9.4 mg/dL (8.5-10.1) Total Bilirubin 0.4 mg/dL (0.2-1.0) Aspartate Amino Transf (AST/SGOT) 48 U/L (15-37) Alanine Aminotransferase (ALT/SGPT) 86 U/L (16-63) Alkaline Phosphatase 112 U/L (46-116) Troponin I Quantitative < 0.017 ng/mL (0.000-0.055) Total Protein 7.6 g/dL (6.4-8.2) Albumin 2.6 g/dL (3.4-5.0) Albumin/Globulin Ratio 0.5 (1.0-1.7) Lipase 212 U/L (73-393) Urine Collection Type Unknown Urine Color Yellow Urine Clarity Clear Urine pH 6.0 Urine Specific [place] >=1.030 Urine Protein Negative mg/dL (NEG-TRACE) Urine Glucose (UA) >=1000 mg/dL (NEG) Urine Ketones (Stick) Negative mg/dL (NEG) Urine Blood Negative (NEG) Urine Nitrite Negative (NEG) Urine Bilirubin Negative (NEG) Urine Urobilinogen Dipstick 1.0 mg/dL (0.2 mg/dL) Urine Leukocyte Esterase Negative (NEG) Urine RBC Occ /HPF (0-2) Urine WBC Occ /HPF (0-4) Urine Squamous Epithelial Cells Many /LPF Urine Bacteria 0 /HPF (0-FEW) Urine Yeast Present /HPF Glucose (Fingerstick) 194 mg/dL (70-99) Lactic Acid Level 0.8 mmol/L (0.4-2.0) Test 05/11/18 05:38 05/11/18 08:44 White Blood Count 8.8 x10^3/uL (4.0-11.0) Red Blood Count 4.14 x10^6/uL (4.30-5.70) Hemoglobin 12.1 g/dL (13.0-17.5) Hematocrit 36.5 % (39.0-53.0) Mean Corpuscular Volume 88 fL (79-100) Mean Corpuscular Hemoglobin 29 pg (25-35) Mean Corpuscular Hemoglobin Concent 33 g/dL (31-37) Red Cell Distribution Width 14.7 % (11.5-14.5) Platelet Count 255 x10^3/uL (140-400) Neutrophils (%) (Auto) 77 % (31-73) Lymphocytes (%) (Auto) 13 % (24-48) Monocytes (%) (Auto) 7 % (0-9) Eosinophils (%) (Auto) 3 % (0-3) Basophils (%) (Auto) 0 % (0-3) Neutrophils # (Auto) 6.8 x10^3uL (1.8-7.7) Lymphocytes # (Auto) 1.1 x10^3/uL (1.0-4.8) Monocytes # (Auto) 0.6 x10^3/uL (0.0-1.1) Eosinophils # (Auto) 0.2 x10^3/uL (0.0-0.7) Basophils # (Auto) 0.0 x10^3/uL (0.0-0.2) Sodium Level 136 mmol/L (136-145) Potassium Level 3.9 mmol/L (3.5-5.1) Chloride Level 101 mmol/L (98-107) Carbon Dioxide Level 29 mmol/L (21-32) Anion Gap 6 (6-14) Blood Urea Nitrogen 19 mg/dL (8-26) Creatinine 0.9 mg/dL (0.7-1.3) Estimated GFR (Cockcroft-Gault) 81.0 BUN/Creatinine Ratio 21 (6-20) Glucose Level 136 mg/dL (70-99) Calcium Level 8.3 mg/dL (8.5-10.1) Total Bilirubin 0.9 mg/dL (0.2-1.0) Aspartate Amino Transf (AST/SGOT) 1301 U/L (15-37) Alanine Aminotransferase (ALT/SGPT) 617 U/L (16-63) Alkaline Phosphatase 413 U/L (46-116) Total Protein 5.8 g/dL (6.4-8.2) Albumin 1.9 g/dL (3.4-5.0) Albumin/Globulin Ratio 0.5 (1.0-1.7) Glucose (Fingerstick) 139 mg/dL (70-99) Laboratory Tests Test 05/10/18 11:55 05/10/18 12:30 05/10/18 16:37 05/10/18 18:45 White Blood Count 12.9 x10^3/uL (4.0-11.0) Red Blood Count 4.62 x10^6/uL (4.30-5.70) Hemoglobin 13.2 g/dL (13.0-17.5) Hematocrit 40.4 % (39.0-53.0) Mean Corpuscular Volume 88 fL (79-100) Mean Corpuscular Hemoglobin 29 pg (25-35) Mean Corpuscular Hemoglobin Concent 33 g/dL (31-37) Red Cell Distribution Width 14.5 % (11.5-14.5) Platelet Count 322 x10^3/uL (140-400) Neutrophils (%) (Auto) 79 % (31-73) Lymphocytes (%) (Auto) 10 % (24-48) Monocytes (%) (Auto) 8 % (0-9) Eosinophils (%) (Auto) 3 % (0-3) Basophils (%) (Auto) 0 % (0-3) Neutrophils # (Auto) 10.2 x10^3uL (1.8-7.7) Lymphocytes # (Auto) 1.3 x10^3/uL (1.0-4.8) Monocytes # (Auto) 1.1 x10^3/uL (0.0-1.1) Eosinophils # (Auto) 0.3 x10^3/uL (0.0-0.7) Basophils # (Auto) 0.0 x10^3/uL (0.0-0.2) Prothrombin Time 14.2 SEC (11.7-14.0) Prothromb Time International Ratio 1.1 (0.8-1.1) Sodium Level 132 mmol/L (136-145) Potassium Level 4.8 mmol/L (3.5-5.1) Chloride Level 94 mmol/L (98-107) Carbon Dioxide Level 31 mmol/L (21-32) Anion Gap 7 (6-14) Blood Urea Nitrogen 21 mg/dL (8-26) Creatinine 1.1 mg/dL (0.7-1.3) Estimated GFR (Cockcroft-Gault) 64.2 BUN/Creatinine Ratio 19 (6-20) Glucose Level 392 mg/dL (70-99) Calcium Level 9.4 mg/dL (8.5-10.1) Total Bilirubin 0.4 mg/dL (0.2-1.0) Aspartate Amino Transf (AST/SGOT) 48 U/L (15-37) Alanine Aminotransferase (ALT/SGPT) 86 U/L (16-63) Alkaline Phosphatase 112 U/L (46-116) Troponin I Quantitative < 0.017 ng/mL (0.000-0.055) Total Protein 7.6 g/dL (6.4-8.2) Albumin 2.6 g/dL (3.4-5.0) Albumin/Globulin Ratio 0.5 (1.0-1.7) Lipase 212 U/L (73-393) Urine Collection Type Unknown Urine Color Yellow Urine Clarity Clear Urine pH 6.0 Urine Specific [place] >=1.030 Urine Protein Negative mg/dL (NEG-TRACE) Urine Glucose (UA) >=1000 mg/dL (NEG) Urine Ketones (Stick) Negative mg/dL (NEG) Urine Blood Negative (NEG) Urine Nitrite Negative (NEG) Urine Bilirubin Negative (NEG) Urine Urobilinogen Dipstick 1.0 mg/dL (0.2 mg/dL) Urine Leukocyte Esterase Negative (NEG) Urine RBC Occ /HPF (0-2) Urine WBC Occ /HPF (0-4) Urine Squamous Epithelial Cells Many /LPF Urine Bacteria 0 /HPF (0-FEW) Urine Yeast Present /HPF Glucose (Fingerstick) 194 mg/dL (70-99) Lactic Acid Level 0.8 mmol/L (0.4-2.0) Test 05/11/18 05:38 05/11/18 08:44 White Blood Count 8.8 x10^3/uL (4.0-11.0) Red Blood Count 4.14 x10^6/uL (4.30-5.70) Hemoglobin 12.1 g/dL (13.0-17.5) Hematocrit 36.5 % (39.0-53.0) Mean Corpuscular Volume 88 fL (79-100) Mean Corpuscular Hemoglobin 29 pg (25-35) Mean Corpuscular Hemoglobin Concent 33 g/dL (31-37) Red Cell Distribution Width 14.7 % (11.5-14.5) Platelet Count 255 x10^3/uL (140-400) Neutrophils (%) (Auto) 77 % (31-73) Lymphocytes (%) (Auto) 13 % (24-48) Monocytes (%) (Auto) 7 % (0-9) Eosinophils (%) (Auto) 3 % (0-3) Basophils (%) (Auto) 0 % (0-3) Neutrophils # (Auto) 6.8 x10^3uL (1.8-7.7) Lymphocytes # (Auto) 1.1 x10^3/uL (1.0-4.8) Monocytes # (Auto) 0.6 x10^3/uL (0.0-1.1) Eosinophils # (Auto) 0.2 x10^3/uL (0.0-0.7) Basophils # (Auto) 0.0 x10^3/uL (0.0-0.2) Sodium Level 136 mmol/L (136-145) Potassium Level 3.9 mmol/L (3.5-5.1) Chloride Level 101 mmol/L (98-107) Carbon Dioxide Level 29 mmol/L (21-32) Anion Gap 6 (6-14) Blood Urea Nitrogen 19 mg/dL (8-26) Creatinine 0.9 mg/dL (0.7-1.3) Estimated GFR (Cockcroft-Gault) 81.0 BUN/Creatinine Ratio 21 (6-20) Glucose Level 136 mg/dL (70-99) Calcium Level 8.3 mg/dL (8.5-10.1) Total Bilirubin 0.9 mg/dL (0.2-1.0) Aspartate Amino Transf (AST/SGOT) 1301 U/L (15-37) Alanine Aminotransferase (ALT/SGPT) 617 U/L (16-63) Alkaline Phosphatase 413 U/L (46-116) Total Protein 5.8 g/dL (6.4-8.2) Albumin 1.9 g/dL (3.4-5.0) Albumin/Globulin Ratio 0.5 (1.0-1.7) Glucose (Fingerstick) 139 mg/dL (70-99) Assessment/Plan perf recurrent diverticulitis continue abx await IR input LUIZA JOHNSON MD 05/11/18 1421: SURGICAL PROGRESS NOTE Assessment/Plan Pt out of room for drain will f/u in AM DAYNE NEWBERRY APRN May 11, 2018 09:19 LUIZA JOHNSON MD May 11, 2018 14:21
--- NOTE | 2018-05-11 11:51 | NUR ---
SW following for discharge planning. Discussed with RN, pt is from home with spouse. Pt is having a drain placed today. SW will continue to follow.
[2018-05-11] MEDS ORDERED: LIDOCAINE WITH 8.4% SOD BICARB 3 ML DISP.SYRIN. ONE (13:28)
[2018-05-11] MEDS ORDERED: DEXTROSE 50% 25 GM / 50ML DISP.SYRIN. IV PRN (14:15)
[2018-05-11] MEDS ORDERED: fentaNYL PF VIAL 100 MCG/2 ML VIAL ONE (14:19)
[2018-05-11] MEDS ORDERED: MIDAZOLAM HCL/PF 2 MG/2 ML VIAL. ONE (14:19)
[2018-05-11] MEDS ORDERED: MIDAZOLAM HCL/PF 2 MG/2 ML VIAL. IV ONE (14:45)
[2018-05-11] MEDS ORDERED: fentaNYL PF VIAL 100 MCG/2 ML VIAL IV ONE (14:45)
[2018-05-11] MEDS ORDERED: LIDOCAINE WITH 8.4% SOD BICARB 3 ML DISP.SYRIN. IJ ONE (14:45)
--- NOTE | 2018-05-11 15:21 | RAD ---
Procedure: CT-guided pelvic abscess drain placement Clinical Indication: Adult male with large pelvic abscess Sedation: Conscious sedation was administered with a total intraprocedural [id number] time of 22 minutes. The patient was monitored by a qualified independent observer throughout the time of sedation. Please refer to the medical record for exact doses of medications utilized to achieve moderate sedation. Antibiotics: None Sterility: The procedure was performed in its entirety using appropriate elements of sterile technique. Consent: The procedure was explained in its entirety to the patient or the patients designated dental sales representative by a member of the treatment team, including a discussion of the risks, benefits and commonly accepted alternatives to the procedure, as well as the expected consequences of no therapy whatsoever. Discussion of the risks included, but was not limited to, those that are most frequent and those that are rare but possibly severe or life-threatening, as well as the possibility of unforeseen complications. Technique and Findings: Following informed consent, the patient was prepped and draped in the usual sterile fashion. Preliminary CT scan of the area of interest was performed. 1% lidocaine was used to achieve local anesthesia over the area of interest. A small dermatotomy was made. Under periodic CT surveillance, an 18-gauge Seldinger needle was advanced into the abscess in the left hemipelvis. The needle was exchanged over wire for a 12 [place] pigtail drainage catheter. This was sutured to the skin and placed to bulb suction. A large amount of air was evacuated, and a specimen of 22 cc of bloody turbid fluid was sent for microbiologic analysis. Complications: No immediate Impression: 1. CT-guided pelvic drain placement as described PQRS Compliance Statement: One or more of the following individualized dose reduction techniques were utilized for this examination: 1. Automated exposure control 2. Adjustment of the mA and/or kV according to patient size 3. Use of iterative reconstruction technique
--- NOTE | 2018-05-11 15:50 | PDOC ---
PROGRESS NOTES Chief Complaint Chief Complaint acute abdominal pain sepsis abdominal abcess, IV abx, surg consult, IR to place drain Severe malnutrition, History of Present Illness History of Present Illness pain better today some weakness is here, plan discussed at length Vitals Vitals Vital Signs Date Time Temp Pulse Resp B/P (MAP) Pulse Ox O2 Delivery O2 Flow Rate FiO2 05/11/18 15:00 97.7 84 18 132/62 (85) 94 Room Air 97.7 05/11/18 14:41 2.0 Physical Exam Physical Exam GENERAL: Propped up in bed, alert, NAD HEENT: Pupils equal and reactive. Oral cavity, pharynx has some mild thrush. dentures NECK: Supple, no JVD. LUNGS: Clear to auscultation, soft upper airway wheeze HEART: S1, S2. ABDOMEN: Nondistended, soft. BS present mild tenderness EXTREMITIES: No clubbing, cyanosis or gross edema. SKIN: Warm to touch without signs of rash. NEUROLOGIC: Alert, nonfocal and appropriate. IV General: Alert, Oriented X3, Cooperative, No acute distress Lungs: Clear, Wheezing Abdomen: Soft, Other (mild TTP LLQ) Extremities: No clubbing, No cyanosis, Normal pulses Skin: No rashes, No breakdown, No significant lesion Labs LABS Laboratory Tests Test 05/10/18 16:37 05/10/18 18:45 05/11/18 05:38 05/11/18 08:44 Glucose (Fingerstick) 194 mg/dL (70-99) 139 mg/dL (70-99) Lactic Acid Level 0.8 mmol/L (0.4-2.0) White Blood Count 8.8 x10^3/uL (4.0-11.0) Red Blood Count 4.14 x10^6/uL (4.30-5.70) Hemoglobin 12.1 g/dL (13.0-17.5) Hematocrit 36.5 % (39.0-53.0) Mean Corpuscular Volume 88 fL (79-100) Mean Corpuscular Hemoglobin 29 pg (25-35) Mean Corpuscular Hemoglobin Concent 33 g/dL (31-37) Red Cell Distribution Width 14.7 % (11.5-14.5) Platelet Count 255 x10^3/uL (140-400) Neutrophils (%) (Auto) 77 % (31-73) Lymphocytes (%) (Auto) 13 % (24-48) Monocytes (%) (Auto) 7 % (0-9) Eosinophils (%) (Auto) 3 % (0-3) Basophils (%) (Auto) 0 % (0-3) Neutrophils # (Auto) 6.8 x10^3uL (1.8-7.7) Lymphocytes # (Auto) 1.1 x10^3/uL (1.0-4.8) Monocytes # (Auto) 0.6 x10^3/uL (0.0-1.1) Eosinophils # (Auto) 0.2 x10^3/uL (0.0-0.7) Basophils # (Auto) 0.0 x10^3/uL (0.0-0.2) Sodium Level 136 mmol/L (136-145) Potassium Level 3.9 mmol/L (3.5-5.1) Chloride Level 101 mmol/L (98-107) Carbon Dioxide Level 29 mmol/L (21-32) Anion Gap 6 (6-14) Blood Urea Nitrogen 19 mg/dL (8-26) Creatinine 0.9 mg/dL (0.7-1.3) Estimated GFR (Cockcroft-Gault) 81.0 BUN/Creatinine Ratio 21 (6-20) Glucose Level 136 mg/dL (70-99) Calcium Level 8.3 mg/dL (8.5-10.1) Total Bilirubin 0.9 mg/dL (0.2-1.0) Aspartate Amino Transf (AST/SGOT) 1301 U/L (15-37) Alanine Aminotransferase (ALT/SGPT) 617 U/L (16-63) Alkaline Phosphatase 413 U/L (46-116) Total Protein 5.8 g/dL (6.4-8.2) Albumin 1.9 g/dL (3.4-5.0) Albumin/Globulin Ratio 0.5 (1.0-1.7) Test 05/11/18 11:42 Glucose (Fingerstick) 226 mg/dL (70-99) Review of Systems Review of Systems pain, no n.cv.vd Comment Review of Relevant I have reviewed the following items mukesh (where applicable) has been applied. Labs Laboratory Tests Test 2/18/19 11:55 05/10/18 12:30 05/10/18 16:37 05/10/18 18:45 White Blood Count 12.9 x10^3/uL (4.0-11.0) Red Blood Count 4.62 x10^6/uL (4.30-5.70) Hemoglobin 13.2 g/dL (13.0-17.5) Hematocrit 40.4 % (39.0-53.0) Mean Corpuscular Volume 88 fL (79-100) Mean Corpuscular Hemoglobin 29 pg (25-35) Mean Corpuscular Hemoglobin Concent 33 g/dL (31-37) Red Cell Distribution Width 14.5 % (11.5-14.5) Platelet Count 322 x10^3/uL (140-400) Neutrophils (%) (Auto) 79 % (31-73) Lymphocytes (%) (Auto) 10 % (24-48) Monocytes (%) (Auto) 8 % (0-9) Eosinophils (%) (Auto) 3 % (0-3) Basophils (%) (Auto) 0 % (0-3) Neutrophils # (Auto) 10.2 x10^3uL (1.8-7.7) Lymphocytes # (Auto) 1.3 x10^3/uL (1.0-4.8) Monocytes # (Auto) 1.1 x10^3/uL (0.0-1.1) Eosinophils # (Auto) 0.3 x10^3/uL (0.0-0.7) Basophils # (Auto) 0.0 x10^3/uL (0.0-0.2) Prothrombin Time 14.2 SEC (11.7-14.0) Prothromb Time International Ratio 1.1 (0.8-1.1) Sodium Level 132 mmol/L (136-145) Potassium Level 4.8 mmol/L (3.5-5.1) Chloride Level 94 mmol/L (98-107) Carbon Dioxide Level 31 mmol/L (21-32) Anion Gap 7 (6-14) Blood Urea Nitrogen 21 mg/dL (8-26) Creatinine 1.1 mg/dL (0.7-1.3) Estimated GFR (Cockcroft-Gault) 64.2 BUN/Creatinine Ratio 19 (6-20) Glucose Level 392 mg/dL (70-99) Calcium Level 9.4 mg/dL (8.5-10.1) Total Bilirubin 0.4 mg/dL (0.2-1.0) Aspartate Amino Transf (AST/SGOT) 48 U/L (15-37) Alanine Aminotransferase (ALT/SGPT) 86 U/L (16-63) Alkaline Phosphatase 112 U/L (46-116) Troponin I Quantitative < 0.017 ng/mL (0.000-0.055) Total Protein 7.6 g/dL (6.4-8.2) Albumin 2.6 g/dL (3.4-5.0) Albumin/Globulin Ratio 0.5 (1.0-1.7) Lipase 212 U/L (73-393) Urine Collection Type Unknown Urine Color Yellow Urine Clarity Clear Urine pH 6.0 Urine Specific [place] >=1.030 Urine Protein Negative mg/dL (NEG-TRACE) Urine Glucose (UA) >=1000 mg/dL (NEG) Urine Ketones (Stick) Negative mg/dL (NEG) Urine Blood Negative (NEG) Urine Nitrite Negative (NEG) Urine Bilirubin Negative (NEG) Urine Urobilinogen Dipstick 1.0 mg/dL (0.2 mg/dL) Urine Leukocyte Esterase Negative (NEG) Urine RBC Occ /HPF (0-2) Urine WBC Occ /HPF (0-4) Urine Squamous Epithelial Cells Many /LPF Urine Bacteria 0 /HPF (0-FEW) Urine Yeast Present /HPF Glucose (Fingerstick) 194 mg/dL (70-99) Lactic Acid Level 0.8 mmol/L (0.4-2.0) Test 05/11/18 05:38 05/11/18 08:44 05/11/18 11:42 White Blood Count 8.8 x10^3/uL (4.0-11.0) Red Blood Count 4.14 x10^6/uL (4.30-5.70) Hemoglobin 12.1 g/dL (13.0-17.5) Hematocrit 36.5 % (39.0-53.0) Mean Corpuscular Volume 88 fL (79-100) Mean Corpuscular Hemoglobin 29 pg (25-35) Mean Corpuscular Hemoglobin Concent 33 g/dL (31-37) Red Cell Distribution Width 14.7 % (11.5-14.5) Platelet Count 255 x10^3/uL (140-400) Neutrophils (%) (Auto) 77 % (31-73) Lymphocytes (%) (Auto) 13 % (24-48) Monocytes (%) (Auto) 7 % (0-9) Eosinophils (%) (Auto) 3 % (0-3) Basophils (%) (Auto) 0 % (0-3) Neutrophils # (Auto) 6.8 x10^3uL (1.8-7.7) Lymphocytes # (Auto) 1.1 x10^3/uL (1.0-4.8) Monocytes # (Auto) 0.6 x10^3/uL (0.0-1.1) Eosinophils # (Auto) 0.2 x10^3/uL (0.0-0.7) Basophils # (Auto) 0.0 x10^3/uL (0.0-0.2) Sodium Level 136 mmol/L (136-145) Potassium Level 3.9 mmol/L (3.5-5.1) Chloride Level 101 mmol/L (98-107) Carbon Dioxide Level 29 mmol/L (21-32) Anion Gap 6 (6-14) Blood Urea Nitrogen 19 mg/dL (8-26) Creatinine 0.9 mg/dL (0.7-1.3) Estimated GFR (Cockcroft-Gault) 81.0 BUN/Creatinine Ratio 21 (6-20) Glucose Level 136 mg/dL (70-99) Calcium Level 8.3 mg/dL (8.5-10.1) Total Bilirubin 0.9 mg/dL (0.2-1.0) Aspartate Amino Transf (AST/SGOT) 1301 U/L (15-37) Alanine Aminotransferase (ALT/SGPT) 617 U/L (16-63) Alkaline Phosphatase 413 U/L (46-116) Total Protein 5.8 g/dL (6.4-8.2) Albumin 1.9 g/dL (3.4-5.0) Albumin/Globulin Ratio 0.5 (1.0-1.7) Glucose (Fingerstick) 139 mg/dL (70-99) 226 mg/dL (70-99) Laboratory Tests Test 05/10/18 16:37 05/10/18 18:45 05/11/18 05:38 05/11/18 08:44 Glucose (Fingerstick) 194 mg/dL (70-99) 139 mg/dL (70-99) Lactic Acid Level 0.8 mmol/L (0.4-2.0) White Blood Count 8.8 x10^3/uL (4.0-11.0) Red Blood Count 4.14 x10^6/uL (4.30-5.70) Hemoglobin 12.1 g/dL (13.0-17.5) Hematocrit 36.5 % (39.0-53.0) Mean Corpuscular Volume 88 fL (79-100) Mean Corpuscular Hemoglobin 29 pg (25-35) Mean Corpuscular Hemoglobin Concent 33 g/dL (31-37) Red Cell Distribution Width 14.7 % (11.5-14.5) Platelet Count 255 x10^3/uL (140-400) Neutrophils (%) (Auto) 77 % (31-73) Lymphocytes (%) (Auto) 13 % (24-48) Monocytes (%) (Auto) 7 % (0-9) Eosinophils (%) (Auto) 3 % (0-3) Basophils (%) (Auto) 0 % (0-3) Neutrophils # (Auto) 6.8 x10^3uL (1.8-7.7) Lymphocytes # (Auto) 1.1 x10^3/uL (1.0-4.8) Monocytes # (Auto) 0.6 x10^3/uL (0.0-1.1) Eosinophils # (Auto) 0.2 x10^3/uL (0.0-0.7) Basophils # (Auto) 0.0 x10^3/uL (0.0-0.2) Sodium Level 136 mmol/L (136-145) Potassium Level 3.9 mmol/L (3.5-5.1) Chloride Level 101 mmol/L (98-107) Carbon Dioxide Level 29 mmol/L (21-32) Anion Gap 6 (6-14) Blood Urea Nitrogen 19 mg/dL (8-26) Creatinine 0.9 mg/dL (0.7-1.3) Estimated GFR (Cockcroft-Gault) 81.0 BUN/Creatinine Ratio 21 (6-20) Glucose Level 136 mg/dL (70-99) Calcium Level 8.3 mg/dL (8.5-10.1) Total Bilirubin 0.9 mg/dL (0.2-1.0) Aspartate Amino Transf (AST/SGOT) 1301 U/L (15-37) Alanine Aminotransferase (ALT/SGPT) 617 U/L (16-63) Alkaline Phosphatase 413 U/L (46-116) Total Protein 5.8 g/dL (6.4-8.2) Albumin 1.9 g/dL (3.4-5.0) Albumin/Globulin Ratio 0.5 (1.0-1.7) Test 05/11/18 11:42 Glucose (Fingerstick) 226 mg/dL (70-99) Medications Current Medications Hyoscyamine (Anaspaz) 0.125 mg ONCE ONCE PO Last administered on 05/10/18 12: 07; Start 05/10/18 at 11:30; Stop 05/10/18 at 11:32; Status DC Ondansetron HCl (Zofran) 4 mg 1X ONCE IV Last administered on 05/10/18 12:09 ; Start 05/10/18 at 11:30; Stop 05/10/18 at 11:32; Status DC Sodium Chloride 500 ml @ 500 mls/hr 1X ONCE IV Last administered on 12:04; Start 05/10/18 at 11:30; Stop 05/10/18 at 12:29; Status DC Iohexol (Omnipaque 240 Mg/ml) 30 ml 1X ONCE PO Last administered on 05/10/18at 12:00; Start 05/10/18 at 12:00; Stop 05/10/18 at 12:01; Status DC Iohexol (Omnipaque 300 Mg/ml) 75 ml 1X ONCE IV Last administered on 05/10/18at 13:08; Start 05/10/18 at 12:00; Stop 05/10/18 at 12:01; Status DC Info (CONTRAST GIVEN -- Rx MONITORING) 1 each PRN DAILY PRN MC SEE COMMENTS; Start 05/10/18 at 12:00; Stop 05/12/18 at 11:59 Ciprofloxacin/ Dextrose 200 ml @ 200 mls/hr 1X ONCE IV Last administered on at 15:58; Start 05/10/18 at 14:30; Stop 05/10/18 at 15:29; Status DC Metronidazole 100 ml @ 100 mls/hr 1X ONCE IV Last administered on 05/10/18at 15:57; Start 05/10/18 at 14:30; Stop 05/10/18 at 15:29; Status DC Ondansetron HCl (Zofran) 4 mg PRN Q8HRS PRN IV NAUSEA/VOMITING; Start 05/10/18 at 14:45; Stop 05/11/18 at 14:44; Status DC Morphine Sulfate (Morphine Sulfate) 2 mg PRN Q2HR PRN IV PAIN Last administered on 05/10/18at 16:29; Start 05/10/18 at 14:45; Stop 05/10/18 at 17:27 ; Status DC Sodium Chloride 1,000 ml @ 125 mls/hr Q8H IV Last administered on 05/11/18 08 :26; Start 05/10/18 at 15:00; Stop 05/11/18 at 14:59; Status DC Acetaminophen (Tylenol) 650 mg PRN Q4HRS PRN PO FEVER; Start 05/10/18 at 14:45 ; Stop 05/11/18 at 14:44; Status DC Ciprofloxacin/ Dextrose 200 ml @ 200 mls/hr Q12HR IV ; Start 05/11/18 at 09:00 ; Stop 05/11/18 at 09:00; Status DC Metronidazole 100 ml @ 100 mls/hr Q12HR IV ; Start 05/10/18 at 21:00; Stop at 21:00; Status DC Morphine Sulfate (Morphine Sulfate) 4 mg PRN Q2HR PRN IV PAIN Last administered on 05/11/18at 13:05; Start 05/10/18 at 17:30 Fentanyl Citrate (Fentanyl 2ml Vial) 50 mcg 1X ONCE IV Last administered on 17:32; Start 05/10/18 at 17:30; Stop 05/10/18 at 17:31; Status DC Ketorolac Tromethamine (Toradol 15mg Vial) 15 mg 1X ONCE IV Last administered on 05/10/18at 17:36; Start 05/10/18 at 17:30; Stop 05/10/18 at 17:31; Status DC Enoxaparin Sodium (Lovenox Per Pharmacy Prophylaxis Dosing) 1 each PRN DAILY PRN MC SEE COMMENTS; Start 05/10/18 at 17:45; Status Cancel Metronidazole 100 ml @ 100 mls/hr Q12HR IV ; Start 05/11/18 at 09:00; Stop at 09:00; Status DC Enoxaparin Sodium (Lovenox 40mg Syringe) 40 mg QHS SQ Last administered on 05/10at 21:33; Start 05/10/18 at 21:00; Stop 05/10/18 at 21:37; Status DC Zolpidem Tartrate (Ambien) 5 mg PRN QHS PRN PO INSOMNIA Last administered on at 23:32; Start 05/10/18 at 23:15 Meropenem 500 mg/ Sodium Chloride 50 ml @ 100 mls/hr Q6HRS IV Last administered on 05/11/18at 11:47; Start 05/11/18 at 06:30 Linezolid/Dextrose 300 ml @ 300 mls/hr Q12HR IV Last administered on at 08:26; Start 05/11/18 at 09:00 Micafungin Sodium 100 mg/Dextrose 100 ml @ 100 mls/hr Q24H IV Last administered on 05/11/18at 08:25; Start 05/11/18 at 08:00 Clotrimazole (Mycelex) 10 mg 5XDAY MM Last administered on 05/11/18at 14:00; Start 05/11/18 at 08:00 Lidocaine/Sodium Bicarbonate (Buffered Lidocaine 1%) 3 ml STK-MED ONCE .ROUTE ; Start 05/11/18 at 13:28; Stop 05/11/18 at 13:29; Status DC Insulin Human Lispro (HumaLOG) 0-5 UNITS TIDWMEALS SQ ; Start 05/11/18 at 17:00 Dextrose (Dextrose 50%-Water Syringe) 12.5 gm PRN Q15MIN PRN IV SEE COMMENTS; Start 05/11/18 at 14:15 Midazolam HCl (Versed) 2 mg STK-MED ONCE .ROUTE ; Start 05/11/18 at 14:19; Stop 05/11/18 at 14:20; Status DC Fentanyl Citrate (Fentanyl 2ml Vial) 100 mcg STK-MED ONCE .ROUTE ; Start at 14:19; Stop 05/11/18 at 14:20; Status DC Lidocaine/Sodium Bicarbonate (Buffered Lidocaine 1%) 6 ml 1X ONCE IJ Last administered on 05/11/18at 14:36; Start 05/11/18 at 14:45; Stop 05/11/18 at 14:46 ; Status DC Midazolam HCl (Versed) 1 mg 1X ONCE IV Last administered on 05/11/18at 14:37; Start 05/11/18 at 14:45; Stop 05/11/18 at 14:46; Status DC Fentanyl Citrate (Fentanyl 2ml Vial) 50 mcg 1X ONCE IV Last administered on at 14:37; Start 05/11/18 at 14:45; Stop 05/11/18 at 14:46; Status DC Enoxaparin Sodium (Lovenox Per Pharmacy Prophylaxis Dosing) 1 each PRN DAILY PRN MC SEE COMMENTS; Start 05/12/18 at 09:00 Enoxaparin Sodium (Lovenox 40mg Syringe) 40 mg Q24H SQ ; Start 05/11/18 at 17:00 Active Scripts Active Cipro (Ciprofloxacin Hcl) 500 Mg Tablet 1 Tab PO BID 14 Days Biotene Moisturizing Mouth (Saliva Stimulant Agents Comb.3) 44.3 Ml [place] 2 [place] PO PRN Q15MIN PRN 30 Days Lantus Solostar (Insulin Glargine,Hum.rec.anlog) 100 Unit/1 Ml Insuln.pen 12 Units SQ DAILY10 30 Days Culturelle (Lactobacillus Rhamnosus Gg) 1 Each Cap.sprink 1 Cap PO BID 28 Days Lipitor (Atorvastatin Calcium) 40 Mg Tablet 1 Tab PO QHS Aspirin Ec (Aspirin) 81 Mg Tablet. 81 Mg PO DAILYWBGRETCHEN Brilinta (Ticagrelor) 90 Mg Tablet 90 Mg PO BID Reported Metformin Hcl 500 Mg Tablet 500 Mg PO BIDWMEALS Soma (Carisoprodol) 350 Mg Tablet 1 Tab PO BID Omeprazole 40 Mg Capsule. 1 Cap PO DAILY Symbicort 80-4.5 Mcg Inhaler (Budesonide/Formoterol Fumarate) 10.2 Gm Hfa.aer.ad 1 Puff IH BID Amaryl (Glimepiride) 4 Mg Tablet 1 Tab PO DAILY Amlodipine Besylate 5 Mg Tablet 5 Mg PO DAILY Carvedilol (Carvedilol) 12.5 Mg Tablet 1 Tab PO BID Colestipol Hcl 1 Gm Tablet 2 Gm PO 1X Magnesium Oxide 400 Mg Tablet 250 Tab PO DAILY Vitamin D3 (Cholecalciferol (Vitamin D3)) 1,000 Unit Tablet 2,000 Tab PO DAILY Vitals/I & O Vital Sign - Last 24 Hours 05/10/18 05/10/18 05/10/18 05/10/18 16:00 16:29 17:01 17:30 Temp 97.8 97.8 Pulse 105 Resp 18 B/P (MAP) 121/67 (85) Pulse Ox 95 O2 Delivery Room Air Room Air Room Air Room Air 05/10/18 05/10/18 05/10/18 05/10/18 18:25 19:00 19:50 23:00 Temp 98.2 98.1 98.2 98.1 Pulse 86 94 Resp 18 18 B/P (MAP) 88/47 (61) 94/62 (73) Pulse Ox 96 92 O2 Delivery Room Air Room Air Room Air Room Air 05/11/18 05/11/18 05/11/18 05/11/18 02:14 03:00 06:01 06:31 Temp 98.5 98.5 Pulse 106 Resp 18 20 B/P (MAP) 105/62 (76) Pulse Ox 92 O2 Delivery Room Air Room Air Room Air 05/11/18 05/11/18 05/11/18 05/11/18 07:00 08:15 11:00 11:51 Temp 98.2 97.7 98.8 98.2 97.7 98.8 Pulse 84 104 Resp 18 B/P (MAP) 116/70 (85) 125/70 (88) Pulse Ox 92 94 O2 Delivery Room Air Room Air Room Air 05/11/18 05/11/18 05/11/18 05/11/18 13:05 13:46 14:20 14:25 Pulse 111 114 Resp 20 Pulse Ox 94 94 95 93 O2 Delivery Room Air Room Air Nasal Cannula Nasal Cannula O2 Flow Rate 2.0 2.0 05/11/18 05/11/18 05/11/18 05/11/18 14:30 14:35 14:37 14:41 Pulse 111 110 119 Resp 19 Pulse Ox 92 94 64 95 O2 Delivery Nasal Cannula Nasal Cannula Nasal Cannula Nasal Cannula BiPAP/CPAP O2 Flow Rate 2.0 2.0 2.0 2.0 05/11/18 15:00 Temp 97.7 97.7 Pulse 84 Resp 18 B/P (MAP) 132/62 (85) Pulse Ox 94 O2 Delivery Room Air Intake and Output 05/10/18 05/10/18 05/11/18 15:00 23:00 07:00 Intake Total 500 ml 120 ml 2125 ml Balance 500 ml 120 ml 2125 ml ANITA ALVARADO MD May 11, 2018 15:50
--- NOTE | 2018-05-11 15:54 | PDOC ---
MODERATE SEDATION ASSESSMENT RISKS/ALTERNATIVES Risks/Alternatives Risks and alternatives of this type of sedation and procedure discussed with: RISK/ALTERNATIVES: Patient H & P ON CHART H & P H & P on chart and reviewed for co-morbid conditions and appropriate labs. H&P ON CHART: Yes STATUS PREG STATUS ASSESSED: Yes MEDS/ALLERGIES REVIEWED Meds/Allergies Reviewed Medications and Allergies including time and route of recently administered narcotics and sedatives. MEDS/ALLERGIES REVIEWED: Yes ASA RATING ASA RATING: II AIRWAY ASSESSMENT Airway Assessment Airway patency, oral function limitations, presence of caps, crowns, dentures, partials, and ability to extend neck assessed. AIRWAY ASSESSMENT: Yes MALLAMPATI SCORE MALLAMPATI SCORE: II PRE-SEDATION ASSESSMENT PRE-SEDATION ASSESSMENT: Yes EVA YANES MD May 11, 2018 15:54
--- NOTE | 2018-05-11 15:56 | PDOC ---
BRIEF OPERATIVE NOTE Pre-Op Diagnosis Pelvic abscess Post-Op Diagnosis same Procedure Performed CT Abdominal Drain Surgeon Alex Anesthesia Type: Conscious Sedation Specimens Obtained 22 cc pus Findings 12F drain Complications No immediate EVA YANES MD May 11, 2018 15:56
[2018-05-11] MEDS ORDERED: INSULIN LISPRO 300 UNITS/3 ML INSULN.PEN. SQ SCH (17:00)
[2018-05-11] MEDS: ENOXAPARIN 40 MG/0.4 ML SYRINGE. SQ SCH (21:10)
[2018-05-11] MEDS: oxyCODONE/APAP 5/325 1 TAB TABLET PO PRN (21:12)
[2018-05-11] MEDS: INSULIN LISPRO 300 UNITS/3 ML INSULN.PEN. SQ SCH (22:01)
[2018-05-12] MEDS: MORPHINE SULFATE 4 MG/ML VIAL. IV PRN ×4 (00:05→22:07)
[2018-05-12 02:59] VITALS: BP 133/73
[2018-05-12 04:14] LABS: BASO % 0 % (0-3); EOS # 0.2 x10^3/uL (0.0-0.7); EOS % 2 % (0-3); HEMATOCRIT 38.4 % (39.0-53.0); HEMOGLOBIN 12.6 g/dL (13.0-17.5); LYMPH # 1.9 x10^3/uL (1.0-4.8); LYMPH % 19 % (24-48); MEAN CORPUSCULAR HEMOGLOBIN 29 pg (25-35); MEAN CORPUSCULAR HGB CONC 33 g/dL (31-37); MEAN CORPUSCULAR VOLUME 88 fL (79-100); MONO # 0.8 x10^3/uL (0.0-1.1); MONO % 8 % (0-9); NEUT % 71 % (31-73); PLATELET COUNT 337 x10^3/uL (140-400); RED BLOOD COUNT 4.37 x10^6/uL (4.30-5.70); RED CELL DISTRIBUTION WIDTH 14.8 % (11.5-14.5); WHITE BLOOD COUNT 9.9 x10^3/uL (4.0-11.0)
[2018-05-12 04:19] LABS: ALBUMIN 2.1 g/dL (3.4-5.0); ALBUMIN/GLOBULIN RATIO 0.5 (1.0-1.7); CALCIUM 8.1 mg/dL (8.5-10.1); CREATININE 0.9 mg/dL (0.7-1.3); POTASSIUM 3.8 mmol/L (3.5-5.1); TOTAL BILIRUBIN 0.5 mg/dL (0.2-1.0); TOTAL PROTEIN 6.6 g/dL (6.4-8.2)
[2018-05-12] MEDS: CLOTRIMAZOLE 10 MG TROCHE. MM SCH ×5 (06:13→21:02)
[2018-05-12] MEDS: MEROPENEM 500 MG in IV NORMAL SALINE 50ML 50 ML IV SCH ×5 (06:13→17:18)
[2018-05-12] MEDS: ONDANSETRON PF 4 MG/2 ML VIAL. IV PRN ×2 (06:13→16:14)
[2018-05-12 07:00] VITALS: BP 129/72
[2018-05-12] MEDS: INSULIN LISPRO 300 UNITS/3 ML INSULN.PEN. SQ SCH ×5 (07:30→21:06)
--- NOTE | 2018-05-12 08:25 | PDOC ---
Infectious Disease Note Subjective Subjective S/p drain 05/11. Had some dry heaves and nausea since placement but feels some bhakti No F/C/S/SOA/ Rash Some mild abd pain around drain Vital Sign Vital Signs Vital Signs Date Time Temp Pulse Resp B/P (MAP) Pulse Ox O2 Delivery O2 Flow Rate FiO2 05/12/18 07:00 97.9 106 18 129/72 (91) 94 Room Air 97.9 05/11/18 14:41 2.0 Physical Exam PHYSICAL EXAM GENERAL: Propped up in bed, alert, NAD HEENT: Pupils equal and reactive. Oral cavity, pharynx has some mild thrush - better. dentures NECK: Supple, no JVD. LUNGS: Clear to auscultation, HEART: S1, S2. ABDOMEN: Nondistended, soft. BS present mild tenderness. JEREMY LLQ with purulent material EXTREMITIES: No clubbing, cyanosis or gross edema. SKIN: Warm to touch without signs of rash. NEUROLOGIC: Alert, nonfocal and appropriate. IV Labs Lab Laboratory Tests Test 05/11/18 08:44 05/11/18 11:42 05/11/18 16:19 05/11/18 20:15 Glucose (Fingerstick) 139 mg/dL (70-99) 226 mg/dL (70-99) 259 mg/dL (70-99) 271 mg/dL (70-99) Test 05/12/18 03:15 05/12/18 07:31 White Blood Count 9.9 x10^3/uL (4.0-11.0) Red Blood Count 4.37 x10^6/uL (4.30-5.70) Hemoglobin 12.6 g/dL (13.0-17.5) Hematocrit 38.4 % (39.0-53.0) Mean Corpuscular Volume 88 fL (79-100) Mean Corpuscular Hemoglobin 29 pg (25-35) Mean Corpuscular Hemoglobin Concent 33 g/dL (31-37) Red Cell Distribution Width 14.8 % (11.5-14.5) Platelet Count 337 x10^3/uL (140-400) Neutrophils (%) (Auto) 71 % (31-73) Lymphocytes (%) (Auto) 19 % (24-48) Monocytes (%) (Auto) 8 % (0-9) Eosinophils (%) (Auto) 2 % (0-3) Basophils (%) (Auto) 0 % (0-3) Neutrophils # (Auto) 7.0 x10^3uL (1.8-7.7) Lymphocytes # (Auto) 1.9 x10^3/uL (1.0-4.8) Monocytes # (Auto) 0.8 x10^3/uL (0.0-1.1) Eosinophils # (Auto) 0.2 x10^3/uL (0.0-0.7) Basophils # (Auto) 0.0 x10^3/uL (0.0-0.2) Sodium Level 134 mmol/L (136-145) Potassium Level 3.8 mmol/L (3.5-5.1) Chloride Level 97 mmol/L (98-107) Carbon Dioxide Level 28 mmol/L (21-32) Anion Gap 9 (6-14) Blood Urea Nitrogen 14 mg/dL (8-26) Creatinine 0.9 mg/dL (0.7-1.3) Estimated GFR (Cockcroft-Gault) 81.0 BUN/Creatinine Ratio 16 (6-20) Glucose Level 256 mg/dL (70-99) Calcium Level 8.1 mg/dL (8.5-10.1) Total Bilirubin 0.5 mg/dL (0.2-1.0) Aspartate Amino Transf (AST/SGOT) 286 U/L (15-37) Alanine Aminotransferase (ALT/SGPT) 416 U/L (16-63) Alkaline Phosphatase 405 U/L (46-116) Total Protein 6.6 g/dL (6.4-8.2) Albumin 2.1 g/dL (3.4-5.0) Albumin/Globulin Ratio 0.5 (1.0-1.7) Glucose (Fingerstick) 298 mg/dL (70-99) Micro CT abd 05/10 IMPRESSION: Persistent inflammatory changes are identified involving the colon with reaccumulation of a gas and fluid containing multilobulated cavity within the central lower pelvis. Findings are concerning for an abscess. This collection contains oral contrast suggestive of communication between the sigmoid colon and the collection. There is extensive diverticulosis with associated wall thickening which may be seen in setting of diverticulitis. No gas is identified within the urinary bladder Jayce 04/21 ANAEROBIC-AEROBIC CULTURE Final Final report ANAEROBIC RES 1 Final Bacteroides uniformis 4+ AEROBIC CULT Final Final report AEROBIC RES 1 Final Escherichia coli 4+ AEROBIC RES 2 Final Klebsiella aerogenes 4+ AEROBIC RES 3 Final Mixed skin mireya 1+ ANTIMICROBIAL SUSCEPTIBILITY Final Comment S = Susceptible; I = Intermediate; R = Resistant P = Positive; N = Negative MICS are expressed in micrograms per mL Antibiotic RSLT#1 RSLT#2 RSLT#3 RSLT#4 Amoxicillin/Clavulanic Acid S =4 R>=32 CONTINUED ON NEXT PAGE RUN DATE: 04/26/18 PAGE 2 RUN TIME: 1814 [facility] [address] [place] [address] Jonathan Sauceda M.D., [employer] Fin[employer] Supervisor SPEC: [id number] PATIENT: SOLADAVIDWILDA [id number] ( Continued) Procedure Result ANTIMICROBIAL SUSCEPTIBILITY Final (continued) Ampicillin S =4 Cefazolin R>=64 Cefepime S<=0.12 S<=0.12 Ceftriaxone S<=0.25 S<=0.25 Cefuroxime S =4 R =R Ciprofloxacin R>=4 S<=0.25 Ertapenem S<=0.12 S<=0.12 Gentamicin S<=1 S<=1 Imipenem S<=0.25 S =1 Levofloxacin R>=8 S<=0.12 Meropenem S<=0.25 S<=0.25 Piperacillin/Tazobactam S<=4 Tetracycline S<=1 S<=1 Tobramycin S<=1 S<=1 Trimethoprim/Sulfa S<=20 S<=20 Objective Assessment Leukocytosis - better Recurrent diverticulitis Recurrent Abd abscesses - h/o IR drainage 04/21 gram stain with Bacteroides/E. coli (R quinolones), Klebsiella so far (yeast on gram stain) s/p Drain 05/11 Transaminitis - better Thrush DM Plan Plan of Care Cont Meropenem/Zyvox and Micafungin Mycelex kalyan F/u labs and cults AUNG CASTRO MD May 12, 2018 08:25
[2018-05-12] MEDS: MICAFUNGIN 100 MG in IV DEXTROSE 5% 100ML 100 ML IV SCH (08:33)
[2018-05-12 11:00] VITALS: BP 115/70
--- NOTE | 2018-05-12 12:06 | NUR ---
Pt 's HR in 120s-130s, at rest. Pt not symptomatic at this time. Dr. Pope notified, no new orders at this time.
--- NOTE | 2018-05-12 12:13 | NUR ---
SW following for discharge planning. Discussed with RN, pt possibly having a surgery in a couple of days. Pt is from home with . SW will continue to follow.
[2018-05-12 15:00] VITALS: BP 125/80
--- NOTE | 2018-05-12 15:16 | PDOC ---
SURGICAL PROGRESS NOTE Subjective Pt and pt's report he feels much better, no n/V, no fevers ( does report general decline over last year) Vital Signs Vital Signs Date Time Temp Pulse Resp B/P (MAP) Pulse Ox O2 Delivery O2 Flow Rate FiO2 05/12/18 13:00 94 Room Air 05/12/18 11:00 97.3 111 18 115/70 (85) 97.3 05/11/18 14:41 2.0 I&O Intake and Output 05/12/18 07:00 Intake Total 1680 ml Output Total 72 ml Balance 1608 ml Intake Oral 805 ml Other 875 ml Output Drainage Total 72 ml # Voids 10 # Bowel Movements 1 General: Alert, Oriented X3, Cooperative, No acute distress HEENT: Atraumatic Abdomen: Soft, No tenderness, Other (drain with serosang) Labs Laboratory Tests Test 05/10/18 16:37 05/10/18 18:45 05/11/18 05:38 05/11/18 08:44 Glucose (Fingerstick) 194 mg/dL (70-99) 139 mg/dL (70-99) Lactic Acid Level 0.8 mmol/L (0.4-2.0) White Blood Count 8.8 x10^3/uL (4.0-11.0) Red Blood Count 4.14 x10^6/uL (4.30-5.70) Hemoglobin 12.1 g/dL (13.0-17.5) Hematocrit 36.5 % (39.0-53.0) Mean Corpuscular Volume 88 fL (79-100) Mean Corpuscular Hemoglobin 29 pg (25-35) Mean Corpuscular Hemoglobin Concent 33 g/dL (31-37) Red Cell Distribution Width 14.7 % (11.5-14.5) Platelet Count 255 x10^3/uL (140-400) Neutrophils (%) (Auto) 77 % (31-73) Lymphocytes (%) (Auto) 13 % (24-48) Monocytes (%) (Auto) 7 % (0-9) Eosinophils (%) (Auto) 3 % (0-3) Basophils (%) (Auto) 0 % (0-3) Neutrophils # (Auto) 6.8 x10^3uL (1.8-7.7) Lymphocytes # (Auto) 1.1 x10^3/uL (1.0-4.8) Monocytes # (Auto) 0.6 x10^3/uL (0.0-1.1) Eosinophils # (Auto) 0.2 x10^3/uL (0.0-0.7) Basophils # (Auto) 0.0 x10^3/uL (0.0-0.2) Sodium Level 136 mmol/L (136-145) Potassium Level 3.9 mmol/L (3.5-5.1) Chloride Level 101 mmol/L (98-107) Carbon Dioxide Level 29 mmol/L (21-32) Anion Gap 6 (6-14) Blood Urea Nitrogen 19 mg/dL (8-26) Creatinine 0.9 mg/dL (0.7-1.3) Estimated GFR (Cockcroft-Gault) 81.0 BUN/Creatinine Ratio 21 (6-20) Glucose Level 136 mg/dL (70-99) Calcium Level 8.3 mg/dL (8.5-10.1) Total Bilirubin 0.9 mg/dL (0.2-1.0) Aspartate Amino Transf (AST/SGOT) 1301 U/L (15-37) Alanine Aminotransferase (ALT/SGPT) 617 U/L (16-63) Alkaline Phosphatase 413 U/L (46-116) Total Protein 5.8 g/dL (6.4-8.2) Albumin 1.9 g/dL (3.4-5.0) Albumin/Globulin Ratio 0.5 (1.0-1.7) Test 05/11/18 11:42 05/11/18 16:19 05/11/18 20:15 05/12/18 03:15 Glucose (Fingerstick) 226 mg/dL (70-99) 259 mg/dL (70-99) 271 mg/dL (70-99) White Blood Count 9.9 x10^3/uL (4.0-11.0) Red Blood Count 4.37 x10^6/uL (4.30-5.70) Hemoglobin 12.6 g/dL (13.0-17.5) Hematocrit 38.4 % (39.0-53.0) Mean Corpuscular Volume 88 fL (79-100) Mean Corpuscular Hemoglobin 29 pg (25-35) Mean Corpuscular Hemoglobin Concent 33 g/dL (31-37) Red Cell Distribution Width 14.8 % (11.5-14.5) Platelet Count 337 x10^3/uL (140-400) Neutrophils (%) (Auto) 71 % (31-73) Lymphocytes (%) (Auto) 19 % (24-48) Monocytes (%) (Auto) 8 % (0-9) Eosinophils (%) (Auto) 2 % (0-3) Basophils (%) (Auto) 0 % (0-3) Neutrophils # (Auto) 7.0 x10^3uL (1.8-7.7) Lymphocytes # (Auto) 1.9 x10^3/uL (1.0-4.8) Monocytes # (Auto) 0.8 x10^3/uL (0.0-1.1) Eosinophils # (Auto) 0.2 x10^3/uL (0.0-0.7) Basophils # (Auto) 0.0 x10^3/uL (0.0-0.2) Sodium Level 134 mmol/L (136-145) Potassium Level 3.8 mmol/L (3.5-5.1) Chloride Level 97 mmol/L (98-107) Carbon Dioxide Level 28 mmol/L (21-32) Anion Gap 9 (6-14) Blood Urea Nitrogen 14 mg/dL (8-26) Creatinine 0.9 mg/dL (0.7-1.3) Estimated GFR (Cockcroft-Gault) 81.0 BUN/Creatinine Ratio 16 (6-20) Glucose Level 256 mg/dL (70-99) Calcium Level 8.1 mg/dL (8.5-10.1) Total Bilirubin 0.5 mg/dL (0.2-1.0) Aspartate Amino Transf (AST/SGOT) 286 U/L (15-37) Alanine Aminotransferase (ALT/SGPT) 416 U/L (16-63) Alkaline Phosphatase 405 U/L (46-116) Total Protein 6.6 g/dL (6.4-8.2) Albumin 2.1 g/dL (3.4-5.0) Albumin/Globulin Ratio 0.5 (1.0-1.7) Test 05/12/18 07:31 05/12/18 10:58 Glucose (Fingerstick) 298 mg/dL (70-99) 289 mg/dL (70-99) Laboratory Tests Test 05/11/18 16:19 05/11/18 20:15 05/12/18 03:15 05/12/18 07:31 Glucose (Fingerstick) 259 mg/dL (70-99) 271 mg/dL (70-99) 298 mg/dL (70-99) White Blood Count 9.9 x10^3/uL (4.0-11.0) Red Blood Count 4.37 x10^6/uL (4.30-5.70) Hemoglobin 12.6 g/dL (13.0-17.5) Hematocrit 38.4 % (39.0-53.0) Mean Corpuscular Volume 88 fL (79-100) Mean Corpuscular Hemoglobin 29 pg (25-35) Mean Corpuscular Hemoglobin Concent 33 g/dL (31-37) Red Cell Distribution Width 14.8 % (11.5-14.5) Platelet Count 337 x10^3/uL (140-400) Neutrophils (%) (Auto) 71 % (31-73) Lymphocytes (%) (Auto) 19 % (24-48) Monocytes (%) (Auto) 8 % (0-9) Eosinophils (%) (Auto) 2 % (0-3) Basophils (%) (Auto) 0 % (0-3) Neutrophils # (Auto) 7.0 x10^3uL (1.8-7.7) Lymphocytes # (Auto) 1.9 x10^3/uL (1.0-4.8) Monocytes # (Auto) 0.8 x10^3/uL (0.0-1.1) Eosinophils # (Auto) 0.2 x10^3/uL (0.0-0.7) Basophils # (Auto) 0.0 x10^3/uL (0.0-0.2) Sodium Level 134 mmol/L (136-145) Potassium Level 3.8 mmol/L (3.5-5.1) Chloride Level 97 mmol/L (98-107) Carbon Dioxide Level 28 mmol/L (21-32) Anion Gap 9 (6-14) Blood Urea Nitrogen 14 mg/dL (8-26) Creatinine 0.9 mg/dL (0.7-1.3) Estimated GFR (Cockcroft-Gault) 81.0 BUN/Creatinine Ratio 16 (6-20) Glucose Level 256 mg/dL (70-99) Calcium Level 8.1 mg/dL (8.5-10.1) Total Bilirubin 0.5 mg/dL (0.2-1.0) Aspartate Amino Transf (AST/SGOT) 286 U/L (15-37) Alanine Aminotransferase (ALT/SGPT) 416 U/L (16-63) Alkaline Phosphatase 405 U/L (46-116) Total Protein 6.6 g/dL (6.4-8.2) Albumin 2.1 g/dL (3.4-5.0) Albumin/Globulin Ratio 0.5 (1.0-1.7) Test 05/12/18 10:58 Glucose (Fingerstick) 289 mg/dL (70-99) Problem List abd abscess cont abx and drain will place PICC and start TPN, given poor nutrition for several weeks. CEA elevated, somewhat concerning plavix held for 3 days, will tentatively plan surgery 05/15 given tachycardia, will ask cards to evaluate, especially given anticipating surgery soon. LUIZA JOHNSON MD May 12, 2018 15:15
--- NOTE | 2018-05-12 16:31 | PDOC ---
PROGRESS NOTES Chief Complaint Chief Complaint acute abdominal pain sepsis abdominal abcess, status post percutaneous drainage, currently on IV abx, surg consult, IR placed drain on 05/11/18 Severe malnutrition History of Present Illness History of Present Illness Patient seems to be better compared to yesterday, no fever or chills. no acute events reported overnight, no new complaints. Vitals Vitals Vital Signs Date Time Temp Pulse Resp B/P (MAP) Pulse Ox O2 Delivery O2 Flow Rate FiO2 05/12/18 15:00 98.8 106 18 125/80 (95) 95 Room Air 98.8 05/11/18 14:41 2.0 Physical Exam Physical Exam GENERAL: Propped up in bed, alert, NAD HEENT: Pupils equal and reactive. Oral cavity, pharynx has some mild thrush - better. dentures NECK: Supple, no JVD. LUNGS: Clear to auscultation, HEART: S1, S2. ABDOMEN: Nondistended, soft. BS present mild tenderness. JEREMY LLQ with purulent material EXTREMITIES: No clubbing, cyanosis or gross edema. SKIN: Warm to touch without signs of rash. NEUROLOGIC: Alert, nonfocal and appropriate. IV General: Alert, Oriented X3, Cooperative, No acute distress Lungs: Clear, Wheezing Abdomen: Soft, No tenderness, Other (drain with serosang) Extremities: No clubbing, No cyanosis, Normal pulses Skin: No rashes, No breakdown, No significant lesion Labs LABS Laboratory Tests Test 05/11/18 20:15 05/12/18 03:15 05/12/18 07:31 05/12/18 10:58 Glucose (Fingerstick) 271 mg/dL (70-99) 298 mg/dL (70-99) 289 mg/dL (70-99) White Blood Count 9.9 x10^3/uL (4.0-11.0) Red Blood Count 4.37 x10^6/uL (4.30-5.70) Hemoglobin 12.6 g/dL (13.0-17.5) Hematocrit 38.4 % (39.0-53.0) Mean Corpuscular Volume 88 fL (79-100) Mean Corpuscular Hemoglobin 29 pg (25-35) Mean Corpuscular Hemoglobin Concent 33 g/dL (31-37) Red Cell Distribution Width 14.8 % (11.5-14.5) Platelet Count 337 x10^3/uL (140-400) Neutrophils (%) (Auto) 71 % (31-73) Lymphocytes (%) (Auto) 19 % (24-48) Monocytes (%) (Auto) 8 % (0-9) Eosinophils (%) (Auto) 2 % (0-3) Basophils (%) (Auto) 0 % (0-3) Neutrophils # (Auto) 7.0 x10^3uL (1.8-7.7) Lymphocytes # (Auto) 1.9 x10^3/uL (1.0-4.8) Monocytes # (Auto) 0.8 x10^3/uL (0.0-1.1) Eosinophils # (Auto) 0.2 x10^3/uL (0.0-0.7) Basophils # (Auto) 0.0 x10^3/uL (0.0-0.2) Sodium Level 134 mmol/L (136-145) Potassium Level 3.8 mmol/L (3.5-5.1) Chloride Level 97 mmol/L (98-107) Carbon Dioxide Level 28 mmol/L (21-32) Anion Gap 9 (6-14) Blood Urea Nitrogen 14 mg/dL (8-26) Creatinine 0.9 mg/dL (0.7-1.3) Estimated GFR (Cockcroft-Gault) 81.0 BUN/Creatinine Ratio 16 (6-20) Glucose Level 256 mg/dL (70-99) Calcium Level 8.1 mg/dL (8.5-10.1) Total Bilirubin 0.5 mg/dL (0.2-1.0) Aspartate Amino Transf (AST/SGOT) 286 U/L (15-37) Alanine Aminotransferase (ALT/SGPT) 416 U/L (16-63) Alkaline Phosphatase 405 U/L (46-116) Total Protein 6.6 g/dL (6.4-8.2) Albumin 2.1 g/dL (3.4-5.0) Albumin/Globulin Ratio 0.5 (1.0-1.7) Comment Review of Relevant I have reviewed the following items mukesh (where applicable) has been applied. Labs Laboratory Tests Test 05/10/18 16:37 05/10/18 18:45 05/11/18 05:38 05/11/18 08:44 Glucose (Fingerstick) 194 mg/dL (70-99) 139 mg/dL (70-99) Lactic Acid Level 0.8 mmol/L (0.4-2.0) White Blood Count 8.8 x10^3/uL (4.0-11.0) Red Blood Count 4.14 x10^6/uL (4.30-5.70) Hemoglobin 12.1 g/dL (13.0-17.5) Hematocrit 36.5 % (39.0-53.0) Mean Corpuscular Volume 88 fL (79-100) Mean Corpuscular Hemoglobin 29 pg (25-35) Mean Corpuscular Hemoglobin Concent 33 g/dL (31-37) Red Cell Distribution Width 14.7 % (11.5-14.5) Platelet Count 255 x10^3/uL (140-400) Neutrophils (%) (Auto) 77 % (31-73) Lymphocytes (%) (Auto) 13 % (24-48) Monocytes (%) (Auto) 7 % (0-9) Eosinophils (%) (Auto) 3 % (0-3) Basophils (%) (Auto) 0 % (0-3) Neutrophils # (Auto) 6.8 x10^3uL (1.8-7.7) Lymphocytes # (Auto) 1.1 x10^3/uL (1.0-4.8) Monocytes # (Auto) 0.6 x10^3/uL (0.0-1.1) Eosinophils # (Auto) 0.2 x10^3/uL (0.0-0.7) Basophils # (Auto) 0.0 x10^3/uL (0.0-0.2) Sodium Level 136 mmol/L (136-145) Potassium Level 3.9 mmol/L (3.5-5.1) Chloride Level 101 mmol/L (98-107) Carbon Dioxide Level 29 mmol/L (21-32) Anion Gap 6 (6-14) Blood Urea Nitrogen 19 mg/dL (8-26) Creatinine 0.9 mg/dL (0.7-1.3) Estimated GFR (Cockcroft-Gault) 81.0 BUN/Creatinine Ratio 21 (6-20) Glucose Level 136 mg/dL (70-99) Calcium Level 8.3 mg/dL (8.5-10.1) Total Bilirubin 0.9 mg/dL (0.2-1.0) Aspartate Amino Transf (AST/SGOT) 1301 U/L (15-37) Alanine Aminotransferase (ALT/SGPT) 617 U/L (16-63) Alkaline Phosphatase 413 U/L (46-116) Total Protein 5.8 g/dL (6.4-8.2) Albumin 1.9 g/dL (3.4-5.0) Albumin/Globulin Ratio 0.5 (1.0-1.7) Test 05/11/18 11:42 05/11/18 16:19 05/11/18 20:15 05/12/18 03:15 Glucose (Fingerstick) 226 mg/dL (70-99) 259 mg/dL (70-99) 271 mg/dL (70-99) White Blood Count 9.9 x10^3/uL (4.0-11.0) Red Blood Count 4.37 x10^6/uL (4.30-5.70) Hemoglobin 12.6 g/dL (13.0-17.5) Hematocrit 38.4 % (39.0-53.0) Mean Corpuscular Volume 88 fL (79-100) Mean Corpuscular Hemoglobin 29 pg (25-35) Mean Corpuscular Hemoglobin Concent 33 g/dL (31-37) Red Cell Distribution Width 14.8 % (11.5-14.5) Platelet Count 337 x10^3/uL (140-400) Neutrophils (%) (Auto) 71 % (31-73) Lymphocytes (%) (Auto) 19 % (24-48) Monocytes (%) (Auto) 8 % (0-9) Eosinophils (%) (Auto) 2 % (0-3) Basophils (%) (Auto) 0 % (0-3) Neutrophils # (Auto) 7.0 x10^3uL (1.8-7.7) Lymphocytes # (Auto) 1.9 x10^3/uL (1.0-4.8) Monocytes # (Auto) 0.8 x10^3/uL (0.0-1.1) Eosinophils # (Auto) 0.2 x10^3/uL (0.0-0.7) Basophils # (Auto) 0.0 x10^3/uL (0.0-0.2) Sodium Level 134 mmol/L (136-145) Potassium Level 3.8 mmol/L (3.5-5.1) Chloride Level 97 mmol/L (98-107) Carbon Dioxide Level 28 mmol/L (21-32) Anion Gap 9 (6-14) Blood Urea Nitrogen 14 mg/dL (8-26) Creatinine 0.9 mg/dL (0.7-1.3) Estimated GFR (Cockcroft-Gault) 81.0 BUN/Creatinine Ratio 16 (6-20) Glucose Level 256 mg/dL (70-99) Calcium Level 8.1 mg/dL (8.5-10.1) Total Bilirubin 0.5 mg/dL (0.2-1.0) Aspartate Amino Transf (AST/SGOT) 286 U/L (15-37) Alanine Aminotransferase (ALT/SGPT) 416 U/L (16-63) Alkaline Phosphatase 405 U/L (46-116) Total Protein 6.6 g/dL (6.4-8.2) Albumin 2.1 g/dL (3.4-5.0) Albumin/Globulin Ratio 0.5 (1.0-1.7) Test 05/12/18 07:31 05/12/18 10:58 Glucose (Fingerstick) 298 mg/dL (70-99) 289 mg/dL (70-99) Laboratory Tests Test 05/11/18 20:15 05/12/18 03:15 05/12/18 07:31 05/12/18 10:58 Glucose (Fingerstick) 271 mg/dL (70-99) 298 mg/dL (70-99) 289 mg/dL (70-99) White Blood Count 9.9 x10^3/uL (4.0-11.0) Red Blood Count 4.37 x10^6/uL (4.30-5.70) Hemoglobin 12.6 g/dL (13.0-17.5) Hematocrit 38.4 % (39.0-53.0) Mean Corpuscular Volume 88 fL (79-100) Mean Corpuscular Hemoglobin 29 pg (25-35) Mean Corpuscular Hemoglobin Concent 33 g/dL (31-37) Red Cell Distribution Width 14.8 % (11.5-14.5) Platelet Count 337 x10^3/uL (140-400) Neutrophils (%) (Auto) 71 % (31-73) Lymphocytes (%) (Auto) 19 % (24-48) Monocytes (%) (Auto) 8 % (0-9) Eosinophils (%) (Auto) 2 % (0-3) Basophils (%) (Auto) 0 % (0-3) Neutrophils # (Auto) 7.0 x10^3uL (1.8-7.7) Lymphocytes # (Auto) 1.9 x10^3/uL (1.0-4.8) Monocytes # (Auto) 0.8 x10^3/uL (0.0-1.1) Eosinophils # (Auto) 0.2 x10^3/uL (0.0-0.7) Basophils # (Auto) 0.0 x10^3/uL (0.0-0.2) Sodium Level 134 mmol/L (136-145) Potassium Level 3.8 mmol/L (3.5-5.1) Chloride Level 97 mmol/L (98-107) Carbon Dioxide Level 28 mmol/L (21-32) Anion Gap 9 (6-14) Blood Urea Nitrogen 14 mg/dL (8-26) Creatinine 0.9 mg/dL (0.7-1.3) Estimated GFR (Cockcroft-Gault) 81.0 BUN/Creatinine Ratio 16 (6-20) Glucose Level 256 mg/dL (70-99) Calcium Level 8.1 mg/dL (8.5-10.1) Total Bilirubin 0.5 mg/dL (0.2-1.0) Aspartate Amino Transf (AST/SGOT) 286 U/L (15-37) Alanine Aminotransferase (ALT/SGPT) 416 U/L (16-63) Alkaline Phosphatase 405 U/L (46-116) Total Protein 6.6 g/dL (6.4-8.2) Albumin 2.1 g/dL (3.4-5.0) Albumin/Globulin Ratio 0.5 (1.0-1.7) Microbiology 05/10/18 Blood Culture - Preliminary, Resulted NO GROWTH AFTER 1 DAY Medications Current Medications Hyoscyamine (Anaspaz) 0.125 mg ONCE ONCE PO Last administered on 05/10/18 12: 07; Start 05/10/18 at 11:30; Stop 05/10/18 at 11:32; Status DC Ondansetron HCl (Zofran) 4 mg 1X ONCE IV Last administered on 05/10/18 12:09 ; Start 05/10/18 at 11:30; Stop 05/10/18 at 11:32; Status DC Sodium Chloride 500 ml @ 500 mls/hr 1X ONCE IV Last administered on 12:04; Start 05/10/18 at 11:30; Stop 05/10/18 at 12:29; Status DC Iohexol (Omnipaque 240 Mg/ml) 30 ml 1X ONCE PO Last administered on 05/10/18 12:00; Start 05/10/18 at 12:00; Stop 05/10/18 at 12:01; Status DC Iohexol (Omnipaque 300 Mg/ml) 75 ml 1X ONCE IV Last administered on 05/10/18 13:08; Start 05/10/18 at 12:00; Stop 05/10/18 at 12:01; Status DC Info (CONTRAST GIVEN -- Rx MONITORING) 1 each PRN DAILY PRN MC SEE COMMENTS; Start 05/10/18 at 12:00; Stop 05/12/18 at 11:59; Status DC Ciprofloxacin/ Dextrose 200 ml @ 200 mls/hr 1X ONCE IV Last administered on 15:58; Start 05/10/18 at 14:30; Stop 05/10/18 at 15:29; Status DC Metronidazole 100 ml @ 100 mls/hr 1X ONCE IV Last administered on 05/10/18at 15:57; Start 05/10/18 at 14:30; Stop 05/10/18 at 15:29; Status DC Ondansetron HCl (Zofran) 4 mg PRN Q8HRS PRN IV NAUSEA/VOMITING; Start 05/10/18 at 14:45; Stop 05/11/18 at 14:44; Status DC Morphine Sulfate (Morphine Sulfate) 2 mg PRN Q2HR PRN IV PAIN Last administered on 05/10/18 16:29; Start 05/10/18 at 14:45; Stop 05/10/18 at 17:27 ; Status DC Sodium Chloride 1,000 ml @ 125 mls/hr Q8H IV Last administered on 05/11/18at 08 :26; Start 05/10/18 at 15:00; Stop 05/11/18 at 14:59; Status DC Acetaminophen (Tylenol) 650 mg PRN Q4HRS PRN PO FEVER; Start 05/10/18 at 14:45 ; Stop 05/11/18 at 14:44; Status DC Ciprofloxacin/ Dextrose 200 ml @ 200 mls/hr Q12HR IV ; Start 05/11/18 at 09:00 ; Stop 05/11/18 at 09:00; Status DC Metronidazole 100 ml @ 100 mls/hr Q12HR IV ; Start 05/10/18 at 21:00; Stop at 21:00; Status DC Morphine Sulfate (Morphine Sulfate) 4 mg PRN Q2HR PRN IV PAIN Last administered on 05/12/18at 12:17; Start 05/10/18 at 17:30 Fentanyl Citrate (Fentanyl 2ml Vial) 50 mcg 1X ONCE IV Last administered on at 17:32; Start 05/10/18 at 17:30; Stop 05/10/18 at 17:31; Status DC Ketorolac Tromethamine (Toradol 15mg Vial) 15 mg 1X ONCE IV Last administered on 05/10/18at 17:36; Start 05/10/18 at 17:30; Stop 05/10/18 at 17:31; Status DC Enoxaparin Sodium (Lovenox Per Pharmacy Prophylaxis Dosing) 1 each PRN DAILY PRN MC SEE COMMENTS; Start 05/10/18 at 17:45; Status Cancel Metronidazole 100 ml @ 100 mls/hr Q12HR IV ; Start 05/11/18 at 09:00; Stop at 09:00; Status DC Enoxaparin Sodium (Lovenox 40mg Syringe) 40 mg QHS SQ Last administered on 05/10at 21:33; Start 05/10/18 at 21:00; Stop 05/10/18 at 21:37; Status DC Zolpidem Tartrate (Ambien) 5 mg PRN QHS PRN PO INSOMNIA Last administered on at 23:32; Start 05/10/18 at 23:15 Meropenem 500 mg/ Sodium Chloride 50 ml @ 100 mls/hr Q6HRS IV Last administered on 05/12/18at 12:17; Start 05/11/18 at 06:30 Linezolid/Dextrose 300 ml @ 300 mls/hr Q12HR IV Last administered on at 08:33; Start 05/11/18 at 09:00 Micafungin Sodium 100 mg/Dextrose 100 ml @ 100 mls/hr Q24H IV Last administered on 05/12/18at 08:33; Start 05/11/18 at 08:00 Clotrimazole (Mycelex) 10 mg 5XDAY MM Last administered on 05/12/18 12:22; Start 05/11/18 at 08:00 Lidocaine/Sodium Bicarbonate (Buffered Lidocaine 1%) 3 ml STK-MED ONCE .ROUTE ; Start 05/11/18 at 13:28; Stop 05/11/18 at 13:29; Status DC Insulin Human Lispro (HumaLOG) 0-5 UNITS TIDWMEALS SQ Last administered on 05/11at 17:00; Start 05/11/18 at 17:00; Stop 05/11/18 at 21:35; Status DC Dextrose (Dextrose 50%-Water Syringe) 12.5 gm PRN Q15MIN PRN IV SEE COMMENTS; Start 05/11/18 at 14:15 Midazolam HCl (Versed) 2 mg STK-MED ONCE .ROUTE ; Start 05/11/18 at 14:19; Stop 05/11/18 at 14:20; Status DC Fentanyl Citrate (Fentanyl 2ml Vial) 100 mcg STK-MED ONCE .ROUTE ; Start at 14:19; Stop 05/11/18 at 14:20; Status DC Lidocaine/Sodium Bicarbonate (Buffered Lidocaine 1%) 6 ml 1X ONCE IJ Last administered on 05/11/18at 14:36; Start 05/11/18 at 14:45; Stop 05/11/18 at 14:46 ; Status DC Midazolam HCl (Versed) 1 mg 1X ONCE IV Last administered on 05/11/18at 14:37; Start 05/11/18 at 14:45; Stop 05/11/18 at 14:46; Status DC Fentanyl Citrate (Fentanyl 2ml Vial) 50 mcg 1X ONCE IV Last administered on at 14:37; Start 05/11/18 at 14:45; Stop 05/11/18 at 14:46; Status DC Enoxaparin Sodium (Lovenox Per Pharmacy Prophylaxis Dosing) 1 each PRN DAILY PRN MC SEE COMMENTS; Start 05/12/18 at 09:00 Enoxaparin Sodium (Lovenox 40mg Syringe) 40 mg Q24H SQ Last administered on at 21:10; Start 05/11/18 at 21:00 Oxycodone/ Acetaminophen (Percocet 5/325) 1 tab PRN Q4HRS PRN PO PAIN Last administered on 05/11/18at 21:12; Start 05/11/18 at 16:30 Insulin Human Lispro (HumaLOG) 0-5 UNITS QIDACHS SQ Last administered on at 22:01; Start 05/11/18 at 21:40; Stop 05/12/18 at 07:35; Status DC Ondansetron HCl (Zofran) 4 mg PRN Q6HRS PRN IV NAUSEA/VOMITING 1ST CHOICE Last administered on 05/12/18at 16:14; Start 05/12/18 at 06:15 Insulin Human Lispro (HumaLOG) 0-7 UNITS QIDACHS SQ Last administered on at 12:22; Start 05/12/18 at 08:00 Lactobacillus Rhamnosus (Culturelle) 1 cap BID PO ; Start 05/12/18 at 21:00 Info (Tpn Per Pharmacy) 1 each PRN DAILY PRN MC SEE COMMENTS; Start 05/12/18 at 15:30 Active Scripts Active Cipro (Ciprofloxacin Hcl) 500 Mg Tablet 1 Tab PO BID 14 Days Biotene Moisturizing Mouth (Saliva Stimulant Agents Comb.3) 44.3 Ml [place] 2 [place] PO PRN Q15MIN PRN 30 Days Lantus Solostar (Insulin Glargine,Hum.rec.anlog) 100 Unit/1 Ml Insuln.pen 12 Units SQ DAILY10 30 Days Culturelle (Lactobacillus Rhamnosus Gg) 1 Each Cap.sprink 1 Cap PO BID 28 Days Lipitor (Atorvastatin Calcium) 40 Mg Tablet 1 Tab PO QHS Aspirin Ec (Aspirin) 81 Mg Tablet.dr 81 Mg PO DAILYWBKFT Brilinta (Ticagrelor) 90 Mg Tablet 90 Mg PO BID Reported Metformin Hcl 500 Mg Tablet 500 Mg PO BIDWMEALS Soma (Carisoprodol) 350 Mg Tablet 1 Tab PO BID Omeprazole 40 Mg Capsule.dr 1 Cap PO DAILY Symbicort 80-4.5 Mcg Inhaler (Budesonide/Formoterol Fumarate) 10.2 Gm Hfa.aer.ad 1 Puff IH BID Amaryl (Glimepiride) 4 Mg Tablet 1 Tab PO DAILY Amlodipine Besylate 5 Mg Tablet 5 Mg PO DAILY Carvedilol (Carvedilol) 12.5 Mg Tablet 1 Tab PO BID Colestipol Hcl 1 Gm Tablet 2 Gm PO 1X Magnesium Oxide 400 Mg Tablet 250 Tab PO DAILY Vitamin D3 (Cholecalciferol (Vitamin D3)) 1,000 Unit Tablet 2,000 Tab PO DAILY Vitals/I & O Vital Sign - Last 24 Hours 05/11/18 05/11/18 05/11/18 05/11/18 19:00 19:40 21:12 22:12 Temp 97.9 97.9 Pulse 105 Resp 18 20 B/P (MAP) 141/79 (99) Pulse Ox 95 O2 Delivery Room Air Room Air Room Air Room Air 05/11/18 05/12/18 05/12/18 05/12/18 23:00 00:05 00:35 02:59 Temp 97.8 98.0 97.8 98.0 Pulse 97 96 Resp 18 20 B/P (MAP) 119/62 (81) 133/73 (93) Pulse Ox 93 92 O2 Delivery Room Air Room Air Room Air 05/12/18 05/12/18 05/12/18 05/12/18 07:00 08:00 11:00 12:17 Temp 97.9 97.3 97.9 97.3 Pulse 106 111 Resp 18 18 B/P (MAP) 129/72 (91) 115/70 (85) Pulse Ox 94 94 94 O2 Delivery Room Air Room Air Room Air Room Air 05/12/18 05/12/18 13:00 15:00 Temp 98.8 98.8 Pulse 106 Resp 18 B/P (MAP) 125/80 (95) Pulse Ox 94 95 O2 Delivery Room Air Room Air Intake and Output 05/11/18 05/11/18 05/12/18 15:00 23:00 07:00 Intake Total 565 ml 1115 ml Output Total 22 ml 50 ml Balance -22 ml 565 ml 1065 ml DARRELL CALLOWAY MD May 12, 2018 16:31
[2018-05-12 19:00] VITALS: BP 119/69
[2018-05-12] MEDS: LACTOBACILLUS RHAMNOSUS GG 1 CAPSULE. PO SCH (21:01)
[2018-05-12] MEDS: ENOXAPARIN 40 MG/0.4 ML SYRINGE. SQ SCH (21:02)
[2018-05-12] MEDS: oxyCODONE/APAP 5/325 1 TAB TABLET PO PRN (22:04)
[2018-05-12 22:26] VITALS: BP 115/71
[2018-05-13] MEDS: MEROPENEM 500 MG in IV NORMAL SALINE 50ML 50 ML IV SCH ×4 (00:13→17:14)
[2018-05-13 03:00] VITALS: BP 115/71
[2018-05-13 04:00] LABS: BASO % 0 % (0-3); EOS # 0.3 x10^3/uL (0.0-0.7); EOS % 3 % (0-3); HEMATOCRIT 35.6 % (39.0-53.0); HEMOGLOBIN 11.7 g/dL (13.0-17.5); LYMPH # 1.6 x10^3/uL (1.0-4.8); LYMPH % 16 % (24-48); MEAN CORPUSCULAR HEMOGLOBIN 29 pg (25-35); MEAN CORPUSCULAR HGB CONC 33 g/dL (31-37); MEAN CORPUSCULAR VOLUME 87 fL (79-100); MONO # 0.8 x10^3/uL (0.0-1.1); MONO % 8 % (0-9); NEUT # 7.4 x10^3uL (1.8-7.7); NEUT % 73 % (31-73); PLATELET COUNT 308 x10^3/uL (140-400); RED BLOOD COUNT 4.11 x10^6/uL (4.30-5.70); RED CELL DISTRIBUTION WIDTH 14.8 % (11.5-14.5); WHITE BLOOD COUNT 10.1 x10^3/uL (4.0-11.0)
[2018-05-13 04:21] LABS: ALBUMIN 1.9 g/dL (3.4-5.0); ALBUMIN/GLOBULIN RATIO 0.5 (1.0-1.7); CALCIUM 8.1 mg/dL (8.5-10.1); CREATININE 0.8 mg/dL (0.7-1.3); GFR 92.8; POTASSIUM 4.1 mmol/L (3.5-5.1); TOTAL BILIRUBIN 0.4 mg/dL (0.2-1.0)
[2018-05-13] MEDS: CLOTRIMAZOLE 10 MG TROCHE. MM SCH ×5 (06:24→21:18)
[2018-05-13] MEDS: PANTOPRAZOLE IV PUSH 40 MG VIAL. IVP SCH (06:27)
[2018-05-13] MEDS: MORPHINE SULFATE 4 MG/ML VIAL. IV PRN ×3 (06:27→21:39)
[2018-05-13] MEDS: ONDANSETRON PF 4 MG/2 ML VIAL. IV PRN (06:34)
[2018-05-13 07:00] VITALS: BP 129/78
[2018-05-13] MEDS ORDERED: CARVEDILOL 12.5 MG TABLET. PO SCH (08:15)
[2018-05-13] MEDS: LACTOBACILLUS RHAMNOSUS GG 1 CAPSULE. PO SCH ×2 (08:19→21:18)
[2018-05-13] MEDS: amLODIPine BESYLATE 5 MG TABLET PO SCH (08:19)
[2018-05-13] MEDS: MICAFUNGIN 100 MG in IV DEXTROSE 5% 100ML 100 ML IV SCH (08:20)
[2018-05-13] MEDS: INSULIN LISPRO 300 UNITS/3 ML INSULN.PEN. SQ SCH ×4 (08:25→21:22)
--- NOTE | 2018-05-13 08:42 | PDOC ---
Infectious Disease Note Subjective Subjective Still some pain but cont to improve. Eating and has been ambulating some S/p drain 05/11. Had some dry heaves and nausea since placement but feels some bhakti No F/C/S/SOA/ Rash Some mild abd pain around drain Vital Sign Vital Signs Vital Signs Date Time Temp Pulse Resp B/P (MAP) Pulse Ox O2 Delivery O2 Flow Rate FiO2 05/13/18 08:19 117 129/78 05/13/18 07:00 97.7 18 94 Room Air 97.7 Physical Exam PHYSICAL EXAM GENERAL: Propped up in bed, alert, NAD HEENT: Pupils equal and reactive. Oral cavity, pharynx has some mild thrush - better. dentures NECK: Supple, no JVD. LUNGS: Clear to auscultation, HEART: S1, S2. ABDOMEN: Nondistended, soft. BS present mild tenderness. JEREMY LLQ with purulent material EXTREMITIES: No clubbing, cyanosis or gross edema. SKIN: Warm to touch without signs of rash. NEUROLOGIC: Alert, nonfocal and appropriate. IV Labs Lab Laboratory Tests Test 05/12/18 10:58 05/13/18 03:15 Glucose (Fingerstick) 289 mg/dL (70-99) White Blood Count 10.1 x10^3/uL (4.0-11.0) Red Blood Count 4.11 x10^6/uL (4.30-5.70) Hemoglobin 11.7 g/dL (13.0-17.5) Hematocrit 35.6 % (39.0-53.0) Mean Corpuscular Volume 87 fL (79-100) Mean Corpuscular Hemoglobin 29 pg (25-35) Mean Corpuscular Hemoglobin Concent 33 g/dL (31-37) Red Cell Distribution Width 14.8 % (11.5-14.5) Platelet Count 308 x10^3/uL (140-400) Neutrophils (%) (Auto) 73 % (31-73) Lymphocytes (%) (Auto) 16 % (24-48) Monocytes (%) (Auto) 8 % (0-9) Eosinophils (%) (Auto) 3 % (0-3) Basophils (%) (Auto) 0 % (0-3) Neutrophils # (Auto) 7.4 x10^3uL (1.8-7.7) Lymphocytes # (Auto) 1.6 x10^3/uL (1.0-4.8) Monocytes # (Auto) 0.8 x10^3/uL (0.0-1.1) Eosinophils # (Auto) 0.3 x10^3/uL (0.0-0.7) Basophils # (Auto) 0.0 x10^3/uL (0.0-0.2) Sodium Level 134 mmol/L (136-145) Potassium Level 4.1 mmol/L (3.5-5.1) Chloride Level 96 mmol/L (98-107) Carbon Dioxide Level 30 mmol/L (21-32) Anion Gap 8 (6-14) Blood Urea Nitrogen 10 mg/dL (8-26) Creatinine 0.8 mg/dL (0.7-1.3) Estimated GFR (Cockcroft-Gault) 92.8 BUN/Creatinine Ratio 13 (6-20) Glucose Level 288 mg/dL (70-99) Calcium Level 8.1 mg/dL (8.5-10.1) Total Bilirubin 0.4 mg/dL (0.2-1.0) Aspartate Amino Transf (AST/SGOT) 111 U/L (15-37) Alanine Aminotransferase (ALT/SGPT) 253 U/L (16-63) Alkaline Phosphatase 303 U/L (46-116) Total Protein 6.0 g/dL (6.4-8.2) Albumin 1.9 g/dL (3.4-5.0) Albumin/Globulin Ratio 0.5 (1.0-1.7) Micro Cults ANAEROBIC-AEROBIC CULTURE PENDING ANAEROBIC RES 1 PENDING AEROBIC CULT PENDING AEROBIC RES 1 PENDING GRAM STAIN Final Final report GRAM STAIN RES 1 Final Comment No white blood cells seen. GRAM STAIN RES 2 Final Comment Few gram negative rods. GRAM STAIN RES 3 Final Comment Few gram positive cocci GRAM STAIN RES 4 Final Comment CONTINUED ON NEXT PAGE RUN DATE: 05/12/18 PAGE 2 RUN TIME: 1810 [facility] [address] [place] [address] Jonathan Sauceda M.D., Nursing Program Director SPEC: [id number] PATIENT: EDITH SELBY [id number] ( Continued) Procedure Result GRAM STAIN RES 4 Final (continued) Few gram positive rods. CT abd 05/10 IMPRESSION: Persistent inflammatory changes are identified involving the colon with reaccumulation of a gas and fluid containing multilobulated cavity within the central lower pelvis. Findings are concerning for an abscess. This collection contains oral contrast suggestive of communication between the sigmoid colon and the collection. There is extensive diverticulosis with associated wall thickening which may be seen in setting of diverticulitis. No gas is identified within the urinary bladder Jayce 04/21 ANAEROBIC-AEROBIC CULTURE Final Final report ANAEROBIC RES 1 Final Bacteroides uniformis 4+ AEROBIC CULT Final Final report AEROBIC RES 1 Final Escherichia coli 4+ AEROBIC RES 2 Final Klebsiella aerogenes 4+ AEROBIC RES 3 Final Mixed skin mireya 1+ ANTIMICROBIAL SUSCEPTIBILITY Final Comment S = Susceptible; I = Intermediate; R = Resistant P = Positive; N = Negative MICS are expressed in micrograms per mL Antibiotic RSLT#1 RSLT#2 RSLT#3 RSLT#4 Amoxicillin/Clavulanic Acid S =4 R>=32 CONTINUED ON NEXT PAGE RUN DATE: 04/26/18 PAGE 2 RUN TIME: 826 [facility] [address] [place] [address] Jonathan Sauceda M.D., Nursing Program Director SPEC: [id number] PATIENT: SELBYDAVIDWILDA [id number] ( Continued) Procedure Result ANTIMICROBIAL SUSCEPTIBILITY Final (continued) Ampicillin S =4 Cefazolin R>=64 Cefepime S<=0.12 S<=0.12 Ceftriaxone S<=0.25 S<=0.25 Cefuroxime S =4 R =R Ciprofloxacin R>=4 S<=0.25 Ertapenem S<=0.12 S<=0.12 Gentamicin S<=1 S<=1 Imipenem S<=0.25 S =1 Levofloxacin R>=8 S<=0.12 Meropenem S<=0.25 S<=0.25 Piperacillin/Tazobactam S<=4 Tetracycline S<=1 S<=1 Tobramycin S<=1 S<=1 Trimethoprim/Sulfa S<=20 S<=20 Objective Assessment Leukocytosis - better Recurrent diverticulitis Recurrent Abd abscesses - h/o IR drainage 04/21 gram stain with Bacteroides/E. coli (R quinolones), Klebsiella so far (yeast on gram stain) s/p Drain 05/11- GNR /GPC/GPR Transaminitis - better Thrush - better DM Plan Plan of Care Cont Meropenem/Zyvox and Micafungin Mycelex kalyan F/u labs and cults AUNG CASTRO MD May 13, 2018 08:42
[2018-05-13] MEDS ORDERED: SALIVA STIMULANT AGENT 44ML SPRAY BOTTLE. PO PRN (09:15)
--- NOTE | 2018-05-13 09:22 | PDOC2 ---
CARDIAC CONSULT DATE OF CONSULT Date of Consult DATE: 05/13/18 TIME: 09:04 REASON FOR CONSULT Reason for Consult: Tachycardia REFERRING PHYSICIAN Referring Physician: Dr. Cordova SOURCE Source: Chart review, Patient HISTORY OF PRESENT ILLNESS HISTORY OF PRESENT ILLNESS This is an 82 yo male, with a history of CAD s/p PCI/stent 01/2018, who presented secondary to acute and chronic severe mild lower abdominal pain. Patient had a recent admission secondary to abdominal abscess, thought to be due to a perforated diverticulitis, requiring drain. Drain was removed last week , but pain returned. Admitted for recurrent diverticulitis, abscess. S/p drain placement 05/11. Was noted to be tachycardic. which prompted this consult. Patient reports abdominal pain has improved. Denies any chest pain, palpitations , dizziness, diaphoresis, or SOA. PAST MEDICAL HISTORY Past Medical History Cardiovascular: CAD, HTN, Hyperlipidemia Pulmonary: COPD CENTRAL NERVOUS SYSTEM: Other (No pertinent history) GI; diverticulitis, abdominal abscess Musculoskeletal: Osteoarthritis Renal/: Benign prostatic enlarg. Endocrine: Diabetes (2) Dermatology: Other (skin CA) PAST SURGICAL HISTORY Past Surgical History Cholecystectomy, Hernia Repair, Other (PCI/stent 01/22/2018; skin CA removal) FAMILY HISTORY Family History noncontributory to CV SOCIAL HISTORY Social History Smoke: Quit (>10 yrs ) ALCOHOL: occasional Drugs: None Lives: with Family CURRENT MEDICATIONS CURRENT MEDICATIONS Current Medications Medications (Trade) Dose Ordered Sig/Annie Route PRN Reason Start Time Stop Time Status Last Admin Dose Admin Lactobacillus Rhamnosus (Culturelle) 1 cap BID PO 05/12/18 21:00 05/13/18 08:19 Pantoprazole Sodium (PROTONIX VIAL for IV PUSH) 40 mg DAILYAC IVP 05/13/18 07:30 05/13/18 06:27 Amlodipine Besylate (Norvasc) 5 mg DAILY PO 05/13/18 09:00 05/13/18 08:19 Carvedilol (Coreg) 12.5 mg BIDWMEALS PO 05/13/18 08:15 05/13/18 08:19 ALLERGIES ALLERGIES: Coded Allergies: latex (Verified Allergy, Intermediate, rash/blisters, , 01/21/18) ROS Review of System 14 point ROS conducted with pertinent positives noted above in HPI. PHYSICAL EXAM PHYSICAL EXAM General: Alert, Oriented X3, Cooperative, No acute distress HEENT: Atraumatic, Mucous membr. moist/pink Lungs: Clear to auscultation, Normal air movement Heart: Regular rhythm (ST/SA), Normal S1, Normal S2, Other (2/6 systolic murmur to LLS border) Abdomen: Other (lower abd tenderness, abdominal drain intact) Extremities: No cyanosis, No edema Skin: No breakdown, No significant lesion Neuro: Normal speech, Sensation intact Psych/Mental Status: Mental status NL, Mood NL MUSCULOSKELETAL: Osteoarthritic changes both hands VITALS VITALS Vital Signs Date Time Temp Pulse Resp B/P (MAP) Pulse Ox O2 Delivery O2 Flow Rate FiO2 05/13/18 08:19 117 129/78 05/13/18 08:00 Room Air 05/13/18 07:00 97.7 18 94 97.7 LABS Lab: Laboratory Tests Test 05/12/18 10:58 05/13/18 03:15 Glucose (Fingerstick) 289 mg/dL (70-99) White Blood Count 10.1 x10^3/uL (4.0-11.0) Red Blood Count 4.11 x10^6/uL (4.30-5.70) Hemoglobin 11.7 g/dL (13.0-17.5) Hematocrit 35.6 % (39.0-53.0) Mean Corpuscular Volume 87 fL (79-100) Mean Corpuscular Hemoglobin 29 pg (25-35) Mean Corpuscular Hemoglobin Concent 33 g/dL (31-37) Red Cell Distribution Width 14.8 % (11.5-14.5) Platelet Count 308 x10^3/uL (140-400) Neutrophils (%) (Auto) 73 % (31-73) Lymphocytes (%) (Auto) 16 % (24-48) Monocytes (%) (Auto) 8 % (0-9) Eosinophils (%) (Auto) 3 % (0-3) Basophils (%) (Auto) 0 % (0-3) Neutrophils # (Auto) 7.4 x10^3uL (1.8-7.7) Lymphocytes # (Auto) 1.6 x10^3/uL (1.0-4.8) Monocytes # (Auto) 0.8 x10^3/uL (0.0-1.1) Eosinophils # (Auto) 0.3 x10^3/uL (0.0-0.7) Basophils # (Auto) 0.0 x10^3/uL (0.0-0.2) Sodium Level 134 mmol/L (136-145) Potassium Level 4.1 mmol/L (3.5-5.1) Chloride Level 96 mmol/L (98-107) Carbon Dioxide Level 30 mmol/L (21-32) Anion Gap 8 (6-14) Blood Urea Nitrogen 10 mg/dL (8-26) Creatinine 0.8 mg/dL (0.7-1.3) Estimated GFR (Cockcroft-Gault) 92.8 BUN/Creatinine Ratio 13 (6-20) Glucose Level 288 mg/dL (70-99) Calcium Level 8.1 mg/dL (8.5-10.1) Total Bilirubin 0.4 mg/dL (0.2-1.0) Aspartate Amino Transf (AST/SGOT) 111 U/L (15-37) Alanine Aminotransferase (ALT/SGPT) 253 U/L (16-63) Alkaline Phosphatase 303 U/L (46-116) Total Protein 6.0 g/dL (6.4-8.2) Albumin 1.9 g/dL (3.4-5.0) Albumin/Globulin Ratio 0.5 (1.0-1.7) ECHOCARDIOGRAM ECHOCARDIOGRAM <Conclusion> The left ventricular systolic function is normal. The Ejection Fraction is 55%. There is normal LV segmental wall motion. Trace mitral regurgitation. Trace tricuspid regurgitation. The PA pressure was estimated at 43 mmHg. There is no evidence of significant pericardial effusion. DATE: 04/21/18 1141 HEART CATH HEART CATH Conclusion 1. 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 Successful PCI with implantation of a 4.0/18 mm ANH, confirming excellent placement by IVUS. Recommendations ASA 81 mg daily Ticagrelor 90mg bid for 1 full year. High dose statin therapy Cardiac rehab. Supportive care. DATE: 01/22/18 1224 ASSESSMENT/PLAN ASSESSMENT/PLAN 1. Abdominal pain: recurrent diverticulitis, abscess. s/p drain. Surgery planed for 05/15 2[address] Tachycardia, ST/SA. BB had not been resumed 3. CAD: 01/22/2018 PCI/ANH to LAD 4. Hypertension; controlled 5. Diabetes, II 6. Hyperlipidemia 7. Transaminitis 8. COPD Recommendations Continue ASA, BB. Hold statin with transaminitis Patient had a large stent placed in his LAD and given that it has been over 2 months he's at low risk for stent thrombosis Hold Brilinta/Plavix (patient on Plavix, but Brilinta on med list) given tentative plan for surgery. Resume following procedure when okay with surgical team. JOSE ERVIN APRN May 13, 2018 09:22
[2018-05-13] MEDS ORDERED: TPN PER PHARMACY MC PRN (09:30)
[2018-05-13] MEDS: BUDESONIDE 0.5 MG/2 ML NEBU. NEB SCH ×2 (10:00→20:00)
[2018-05-13] MEDS ORDERED: INSULIN LISPRO 300 UNITS/3 ML INSULN.PEN. SQ ONE (10:00)
[2018-05-13] MEDS ORDERED: INSULIN GLARGINE 300 UNITS/3 ML INSULN.PEN. SQ SCH (10:00)
[2018-05-13] MEDS ORDERED: metFORMIN 500 MG TABLET PO SCH (10:00)
[2018-05-13] MEDS ORDERED: LACTOBACILLUS RHAMNOSUS GG 1 CAPSULE. PO SCH (10:00)
--- NOTE | 2018-05-13 10:24 | PDOC ---
DAYNE NEWBERRY [employer] MACHINE SETTER 05/13/18 1024: SURGICAL PROGRESS NOTE Subjective no complaints mild pain at drain site Vital Signs Vital Signs Date Time Temp Pulse Resp B/P (MAP) Pulse Ox O2 Delivery O2 Flow Rate FiO2 05/13/18 08:19 117 129/78 05/13/18 08:00 Room Air 05/13/18 07:00 97.7 18 94 97.7 I&O Intake and Output 05/13/18 06:59 Intake Total 880 ml Output Total 135 ml Balance 745 ml Intake Oral 880 ml Output Drainage Total 135 ml # Voids 5 General: Alert, Oriented X3, Cooperative, No acute distress Abdomen: Soft, Other (drain purulent) Labs Laboratory Tests Test 05/11/18 11:42 05/11/18 16:19 05/11/18 20:15 05/12/18 03:15 Glucose (Fingerstick) 226 mg/dL (70-99) 259 mg/dL (70-99) 271 mg/dL (70-99) White Blood Count 9.9 x10^3/uL (4.0-11.0) Red Blood Count 4.37 x10^6/uL (4.30-5.70) Hemoglobin 12.6 g/dL (13.0-17.5) Hematocrit 38.4 % (39.0-53.0) Mean Corpuscular Volume 88 fL (79-100) Mean Corpuscular Hemoglobin 29 pg (25-35) Mean Corpuscular Hemoglobin Concent 33 g/dL (31-37) Red Cell Distribution Width 14.8 % (11.5-14.5) Platelet Count 337 x10^3/uL (140-400) Neutrophils (%) (Auto) 71 % (31-73) Lymphocytes (%) (Auto) 19 % (24-48) Monocytes (%) (Auto) 8 % (0-9) Eosinophils (%) (Auto) 2 % (0-3) Basophils (%) (Auto) 0 % (0-3) Neutrophils # (Auto) 7.0 x10^3uL (1.8-7.7) Lymphocytes # (Auto) 1.9 x10^3/uL (1.0-4.8) Monocytes # (Auto) 0.8 x10^3/uL (0.0-1.1) Eosinophils # (Auto) 0.2 x10^3/uL (0.0-0.7) Basophils # (Auto) 0.0 x10^3/uL (0.0-0.2) Sodium Level 134 mmol/L (136-145) Potassium Level 3.8 mmol/L (3.5-5.1) Chloride Level 97 mmol/L (98-107) Carbon Dioxide Level 28 mmol/L (21-32) Anion Gap 9 (6-14) Blood Urea Nitrogen 14 mg/dL (8-26) Creatinine 0.9 mg/dL (0.7-1.3) Estimated GFR (Cockcroft-Gault) 81.0 BUN/Creatinine Ratio 16 (6-20) Glucose Level 256 mg/dL (70-99) Calcium Level 8.1 mg/dL (8.5-10.1) Total Bilirubin 0.5 mg/dL (0.2-1.0) Aspartate Amino Transf (AST/SGOT) 286 U/L (15-37) Alanine Aminotransferase (ALT/SGPT) 416 U/L (16-63) Alkaline Phosphatase 405 U/L (46-116) Total Protein 6.6 g/dL (6.4-8.2) Albumin 2.1 g/dL (3.4-5.0) Albumin/Globulin Ratio 0.5 (1.0-1.7) Test 05/12/18 07:31 05/12/18 10:58 05/13/18 03:15 Glucose (Fingerstick) 298 mg/dL (70-99) 289 mg/dL (70-99) White Blood Count 10.1 x10^3/uL (4.0-11.0) Red Blood Count 4.11 x10^6/uL (4.30-5.70) Hemoglobin 11.7 g/dL (13.0-17.5) Hematocrit 35.6 % (39.0-53.0) Mean Corpuscular Volume 87 fL (79-100) Mean Corpuscular Hemoglobin 29 pg (25-35) Mean Corpuscular Hemoglobin Concent 33 g/dL (31-37) Red Cell Distribution Width 14.8 % (11.5-14.5) Platelet Count 308 x10^3/uL (140-400) Neutrophils (%) (Auto) 73 % (31-73) Lymphocytes (%) (Auto) 16 % (24-48) Monocytes (%) (Auto) 8 % (0-9) Eosinophils (%) (Auto) 3 % (0-3) Basophils (%) (Auto) 0 % (0-3) Neutrophils # (Auto) 7.4 x10^3uL (1.8-7.7) Lymphocytes # (Auto) 1.6 x10^3/uL (1.0-4.8) Monocytes # (Auto) 0.8 x10^3/uL (0.0-1.1) Eosinophils # (Auto) 0.3 x10^3/uL (0.0-0.7) Basophils # (Auto) 0.0 x10^3/uL (0.0-0.2) Sodium Level 134 mmol/L (136-145) Potassium Level 4.1 mmol/L (3.5-5.1) Chloride Level 96 mmol/L (98-107) Carbon Dioxide Level 30 mmol/L (21-32) Anion Gap 8 (6-14) Blood Urea Nitrogen 10 mg/dL (8-26) Creatinine 0.8 mg/dL (0.7-1.3) Estimated GFR (Cockcroft-Gault) 92.8 BUN/Creatinine Ratio 13 (6-20) Glucose Level 288 mg/dL (70-99) Calcium Level 8.1 mg/dL (8.5-10.1) Total Bilirubin 0.4 mg/dL (0.2-1.0) Aspartate Amino Transf (AST/SGOT) 111 U/L (15-37) Alanine Aminotransferase (ALT/SGPT) 253 U/L (16-63) Alkaline Phosphatase 303 U/L (46-116) Total Protein 6.0 g/dL (6.4-8.2) Albumin 1.9 g/dL (3.4-5.0) Albumin/Globulin Ratio 0.5 (1.0-1.7) Laboratory Tests Test 05/12/18 10:58 05/13/18 03:15 Glucose (Fingerstick) 289 mg/dL (70-99) White Blood Count 10.1 x10^3/uL (4.0-11.0) Red Blood Count 4.11 x10^6/uL (4.30-5.70) Hemoglobin 11.7 g/dL (13.0-17.5) Hematocrit 35.6 % (39.0-53.0) Mean Corpuscular Volume 87 fL (79-100) Mean Corpuscular Hemoglobin 29 pg (25-35) Mean Corpuscular Hemoglobin Concent 33 g/dL (31-37) Red Cell Distribution Width 14.8 % (11.5-14.5) Platelet Count 308 x10^3/uL (140-400) Neutrophils (%) (Auto) 73 % (31-73) Lymphocytes (%) (Auto) 16 % (24-48) Monocytes (%) (Auto) 8 % (0-9) Eosinophils (%) (Auto) 3 % (0-3) Basophils (%) (Auto) 0 % (0-3) Neutrophils # (Auto) 7.4 x10^3uL (1.8-7.7) Lymphocytes # (Auto) 1.6 x10^3/uL (1.0-4.8) Monocytes # (Auto) 0.8 x10^3/uL (0.0-1.1) Eosinophils # (Auto) 0.3 x10^3/uL (0.0-0.7) Basophils # (Auto) 0.0 x10^3/uL (0.0-0.2) Sodium Level 134 mmol/L (136-145) Potassium Level 4.1 mmol/L (3.5-5.1) Chloride Level 96 mmol/L (98-107) Carbon Dioxide Level 30 mmol/L (21-32) Anion Gap 8 (6-14) Blood Urea Nitrogen 10 mg/dL (8-26) Creatinine 0.8 mg/dL (0.7-1.3) Estimated GFR (Cockcroft-Gault) 92.8 BUN/Creatinine Ratio 13 (6-20) Glucose Level 288 mg/dL (70-99) Calcium Level 8.1 mg/dL (8.5-10.1) Total Bilirubin 0.4 mg/dL (0.2-1.0) Aspartate Amino Transf (AST/SGOT) 111 U/L (15-37) Alanine Aminotransferase (ALT/SGPT) 253 U/L (16-63) Alkaline Phosphatase 303 U/L (46-116) Total Protein 6.0 g/dL (6.4-8.2) Albumin 1.9 g/dL (3.4-5.0) Albumin/Globulin Ratio 0.5 (1.0-1.7) Assessment/Plan supportive measures surgery tentative for 05/15 LUIZA JOHNSON MD 05/13/18 1628: SURGICAL PROGRESS NOTE Assessment/Plan Pt seen and examined. Agree with Ms. Newberry's note Pt feels much better, stefany diet abd soft, min TTP cont drain and abx plan surgery soon DAYNE NEWBERRY APRN May 13, 2018 10:24 LUIZA JHONSON MD May 13, 2018 16:28
[2018-05-13 10:38] LABS: % BANDS 5 % (0-9); % EOS 2 % (0-5); % LYMPHS 13 % (24-48); % MONOS 7 % (0-10); % MYELOS 1 % (0-0); % SEGS 72 % (35-66)
[2018-05-13 10:39] LABS: PLT ESTIMATE ADEQUATE (ADEQUATE)
[2018-05-13] MEDS ORDERED: LIDOCAINE WITH 8.4% SOD BICARB 3 ML DISP.SYRIN. ONE (10:56)
[2018-05-13] MEDS ORDERED: LIDOCAINE WITH 8.4% SOD BICARB 3 ML DISP.SYRIN. INJ ONE (11:15)
[2018-05-13] MEDS ORDERED: IODIXANOL 320 MG/ML 50ML VIAL. ONE ×2 (11:20→11:21)
[2018-05-13] MEDS ORDERED: IODIXANOL 320 MG/ML 50ML VIAL. IV ONE (11:45)
[2018-05-13] MEDS ORDERED: ALBUTEROL SULFATE 2.5 MG/3 ML NEBU. NEB SCH (12:00)
[2018-05-13] MEDS ORDERED: CONTRAST GIVEN. MC PRN (12:00)
[2018-05-13 12:03] LABS: MAGNESIUM 1.4 mg/dL (1.8-2.4); PHOSPHORUS 2.1 mg/dL (2.6-4.7)
[2018-05-13] MEDS: MAGNESIUM OXIDE 400 MG TABLET PO SCH (12:04)
[2018-05-13] MEDS: GLIMEPIRIDE 2 MG TABLET. PO SCH (12:05)
[2018-05-13] MEDS: CHOLECALCIFEROL (VITAMIN D3) 1,000 UNIT TABLET PO SCH (12:05)
[2018-05-13] MEDS: TPN PER PHARMACY MC PRN (12:29)
--- NOTE | 2018-05-13 12:29 | RAD ---
Procedure: Upper extremity PICC line placement Clinical Indication: 82-year-old requiring central venous access Sedation: Local anesthesia only was provided Antibiotics: None Fluoro Time: 2.8 minutes. Images: 1, angiographic runs: 1 Sterility: All elements of maximal sterile barrier technique including the use of a cap, mask, sterile gown, sterile gloves, large sterile sheet, appropriate hand hygiene, and 2% chlorhexidine for cutaneous antisepsis (or acceptable alternative antiseptic per current guidelines) were followed for this procedure. Consent: The procedure was explained in its entirety to the patient or the patients designated account development representative by a member of the treatment team, including a discussion of the risks, benefits and commonly accepted alternatives to the procedure, as well as the expected consequences of no therapy whatsoever. Discussion of the risks included, but was not limited to, those that are most frequent and those that are rare but possibly severe or life-threatening, as well as the possibility of unforeseen complications. Technique and Findings: Following informed consent, the patient was prepped and draped in the usual sterile fashion. Ultrasound interrogation of the right arm revealed patency and compressibility of right paired brachial veins and right cephalic vein. The right basilic vein is also noted but is diminutive.. A hard copy ultrasound image was recorded. 1% Lidocaine was used to achieve local anesthesia and a 21-gauge micropuncture needle was used to gain access to the anterior brachial vein. A hardcopy ultrasound image was recorded. Attempts to advance the wire through this vein were unsuccessful due to its diminutive nature. The deeper paired brachial vein is difficult access to the overlying brachial artery. 1% lidocaine was used to achieve local anesthesia over second location, and a 21-gauge micropuncture was used to gain access to the cephalic vein once again under ultrasound guidance. A hardcopy ultrasound image was recorded. The needle was exchanged over wire for a 5 [place] peel-away sheath. This time the catheter would not advance distal to the axillary region. Contrast venography was performed demonstrating diffusely diminutive nature of the cephalic vein throughout the axillary or, possibly due to spasm or congenital atrophy. Consequently, the sheath was removed and hemostasis was achieved with manual compression. A third area was then anesthetized 1% lidocaine. Once again under ultrasound guidance, a 21-gauge micropuncture was used to gain access to this time to the deep brachial vein. Hardcopy ultrasound image was again recorded. The needle was exchanged over wire for a 5 [place] peel-away sheath which was used to deploy a PICC line under fluoroscopic guidance such that the distal tip resided at the cavoatrial junction. The catheter flushed and aspirated with ease and was sutured to the skin. Complications: No immediate Impression: 1. Ultrasound guided PICC line placement as described.
--- NOTE | 2018-05-13 12:29 | NUR ---
Pharmacy TPN Dosing Note S: EDITH SELBY is a 82 year old M Currently receiving Central Continuous TPN started 05/13/18 B:Pertinent PMH: ABDOMINAL ABSCESS/PERFORATION Height: 5 feet, 10 inches Weight: 62.330361 kg Current diet: NPO LABS: Sodium: 134 Potassium: 4.1 Chloride: 96 Calcium: 8.1 Corrected Calcium: 9.78 Magnesium: 1.4 CO2: 30 SCr: 0.8 Glucose: 288 Albumin: 1.9 AST: 111 ALT: 253 TPN FORMULA: TPN TYPE: Central Continuous AMINO ACIDS: 60 gm DEXTROSE: 195 gm LIPIDS: 20 gm SODIUM CHLORIDE: 90 mEq SODIUM ACETATE: mEq SODIUM PHOSPHATE: mmol POTASSIUM CHLORIDE: 50 mEq POTASSIUM ACETATE: mEq POTASSIUM PHOSPHATE: 25 mmol MAGNESIUM: 20 mEq CALCIUM: 10 mEq INSULIN: units MULTIPLE VITAMIN: 10 ml TRACE ELEMENTS: 1 ml(s) TPN PLAN: Will start house formula TPN with the exception of Mag and Phos -Mag=1.4; gave 2gm x1 bolus, and will start with 20meq Mag in TPN -Phos=2.1, gave 20mmol x2 naphos, and will start with 25mmol Kphos in TPN -Labs in the am R: Begin TPN as written above. Will monitor electrolytes, glucose, and tolerance to TPN. JOSE BOJORQUEZ [facility], 05/13/18 [id number]
[2018-05-13] MEDS ORDERED: MAGNESIUM SULFATE 2GM 50 ML IV ONE (13:00)
[2018-05-13] MEDS ORDERED: SODIUM PHOSPHATE 20 MMOL in IV DEXTROSE 5% 250 ML IV ONE (13:00)
--- NOTE | 2018-05-13 13:02 | NUR ---
SS following up with discharge planning. Pt currently on TPN with tentative surgery scheduled for 05/15/2018. PT recommended home with spouse at discharge. SS will continue to follow for pending discharge needs.
[2018-05-13] MEDS ORDERED: ALBUTEROL SULFATE 2.5 MG/3 ML NEBU. NEB PRN (14:00)
--- NOTE | 2018-05-13 14:17 | PDOC ---
PROGRESS NOTES Chief Complaint Chief Complaint acute abdominal pain sepsis abdominal abcess, status post percutaneous drainage, currently on IV abx, surg consult, IR placed drain on 05/11/18 Severe malnutrition History of Present Illness History of Present Illness start TPN cont current home medsd, increase insulin Patient seems to be better compared to yesterday, no fever or chill Vitals Vitals Vital Signs Date Time Temp Pulse Resp B/P (MAP) Pulse Ox O2 Delivery O2 Flow Rate FiO2 05/13/18 13:07 94 Room Air 05/13/18 08:19 117 129/78 05/13/18 07:00 97.7 18 97.7 Physical Exam Physical Exam GENERAL: Propped up in bed, alert, NAD HEENT: Pupils equal and reactive. Oral cavity, pharynx has some mild thrush - better. dentures NECK: Supple, no JVD. LUNGS: Clear to auscultation, HEART: S1, S2. ABDOMEN: Nondistended, soft. BS present mild tenderness. JEREMY LLQ with purulent material EXTREMITIES: No clubbing, cyanosis or gross edema. SKIN: Warm to touch without signs of rash. NEUROLOGIC: Alert, nonfocal and appropriate. IV General: Alert, Oriented X3, Cooperative, No acute distress Lungs: Clear, Wheezing Abdomen: Soft, Other (drain purulent) Extremities: No clubbing, No cyanosis, Normal pulses Skin: No rashes, No breakdown, No significant lesion Labs LABS Laboratory Tests Test 05/13/18 03:15 05/13/18 11:59 White Blood Count 10.1 x10^3/uL (4.0-11.0) Red Blood Count 4.11 x10^6/uL (4.30-5.70) Hemoglobin 11.7 g/dL (13.0-17.5) Hematocrit 35.6 % (39.0-53.0) Mean Corpuscular Volume 87 fL (79-100) Mean Corpuscular Hemoglobin 29 pg (25-35) Mean Corpuscular Hemoglobin Concent 33 g/dL (31-37) Red Cell Distribution Width 14.8 % (11.5-14.5) Platelet Count 308 x10^3/uL (140-400) Neutrophils (%) (Auto) 73 % (31-73) Lymphocytes (%) (Auto) 16 % (24-48) Monocytes (%) (Auto) 8 % (0-9) Eosinophils (%) (Auto) 3 % (0-3) Basophils (%) (Auto) 0 % (0-3) Neutrophils # (Auto) 7.4 x10^3uL (1.8-7.7) Lymphocytes # (Auto) 1.6 x10^3/uL (1.0-4.8) Monocytes # (Auto) 0.8 x10^3/uL (0.0-1.1) Eosinophils # (Auto) 0.3 x10^3/uL (0.0-0.7) Basophils # (Auto) 0.0 x10^3/uL (0.0-0.2) Segmented Neutrophils % 72 % (35-66) Band Neutrophils % 5 % (0-9) Lymphocytes % 13 % (24-48) Monocytes % 7 % (0-10) Eosinophils % 2 % (0-5) Myelocytes % 1 % (0-0) Platelet Estimate Adequate (ADEQUATE) Sodium Level 134 mmol/L (136-145) Potassium Level 4.1 mmol/L (3.5-5.1) Chloride Level 96 mmol/L (98-107) Carbon Dioxide Level 30 mmol/L (21-32) Anion Gap 8 (6-14) Blood Urea Nitrogen 10 mg/dL (8-26) Creatinine 0.8 mg/dL (0.7-1.3) Estimated GFR (Cockcroft-Gault) 92.8 BUN/Creatinine Ratio 13 (6-20) Glucose Level 288 mg/dL (70-99) Calcium Level 8.1 mg/dL (8.5-10.1) Phosphorus Level 2.1 mg/dL (2.6-4.7) Magnesium Level 1.4 mg/dL (1.8-2.4) Total Bilirubin 0.4 mg/dL (0.2-1.0) Aspartate Amino Transf (AST/SGOT) 111 U/L (15-37) Alanine Aminotransferase (ALT/SGPT) 253 U/L (16-63) Alkaline Phosphatase 303 U/L (46-116) Total Protein 6.0 g/dL (6.4-8.2) Albumin 1.9 g/dL (3.4-5.0) Albumin/Globulin Ratio 0.5 (1.0-1.7) Glucose (Fingerstick) 382 mg/dL (70-99) Review of Systems Review of Systems no n/v/d Comment Review of Relevant I have reviewed the following items mukesh (where applicable) has been applied. Labs Laboratory Tests Test 05/11/18 16:19 05/11/18 20:15 05/12/18 03:15 05/12/18 07:31 Glucose (Fingerstick) 259 mg/dL (70-99) 271 mg/dL (70-99) 298 mg/dL (70-99) White Blood Count 9.9 x10^3/uL (4.0-11.0) Red Blood Count 4.37 x10^6/uL (4.30-5.70) Hemoglobin 12.6 g/dL (13.0-17.5) Hematocrit 38.4 % (39.0-53.0) Mean Corpuscular Volume 88 fL (79-100) Mean Corpuscular Hemoglobin 29 pg (25-35) Mean Corpuscular Hemoglobin Concent 33 g/dL (31-37) Red Cell Distribution Width 14.8 % (11.5-14.5) Platelet Count 337 x10^3/uL (140-400) Neutrophils (%) (Auto) 71 % (31-73) Lymphocytes (%) (Auto) 19 % (24-48) Monocytes (%) (Auto) 8 % (0-9) Eosinophils (%) (Auto) 2 % (0-3) Basophils (%) (Auto) 0 % (0-3) Neutrophils # (Auto) 7.0 x10^3uL (1.8-7.7) Lymphocytes # (Auto) 1.9 x10^3/uL (1.0-4.8) Monocytes # (Auto) 0.8 x10^3/uL (0.0-1.1) Eosinophils # (Auto) 0.2 x10^3/uL (0.0-0.7) Basophils # (Auto) 0.0 x10^3/uL (0.0-0.2) Sodium Level 134 mmol/L (136-145) Potassium Level 3.8 mmol/L (3.5-5.1) Chloride Level 97 mmol/L (98-107) Carbon Dioxide Level 28 mmol/L (21-32) Anion Gap 9 (6-14) Blood Urea Nitrogen 14 mg/dL (8-26) Creatinine 0.9 mg/dL (0.7-1.3) Estimated GFR (Cockcroft-Gault) 81.0 BUN/Creatinine Ratio 16 (6-20) Glucose Level 256 mg/dL (70-99) Calcium Level 8.1 mg/dL (8.5-10.1) Total Bilirubin 0.5 mg/dL (0.2-1.0) Aspartate Amino Transf (AST/SGOT) 286 U/L (15-37) Alanine Aminotransferase (ALT/SGPT) 416 U/L (16-63) Alkaline Phosphatase 405 U/L (46-116) Total Protein 6.6 g/dL (6.4-8.2) Albumin 2.1 g/dL (3.4-5.0) Albumin/Globulin Ratio 0.5 (1.0-1.7) Test 05/12/18 10:58 05/13/18 03:15 05/13/18 11:59 Glucose (Fingerstick) 289 mg/dL (70-99) 382 mg/dL (70-99) White Blood Count 10.1 x10^3/uL (4.0-11.0) Red Blood Count 4.11 x10^6/uL (4.30-5.70) Hemoglobin 11.7 g/dL (13.0-17.5) Hematocrit 35.6 % (39.0-53.0) Mean Corpuscular Volume 87 fL (79-100) Mean Corpuscular Hemoglobin 29 pg (25-35) Mean Corpuscular Hemoglobin Concent 33 g/dL (31-37) Red Cell Distribution Width 14.8 % (11.5-14.5) Platelet Count 308 x10^3/uL (140-400) Neutrophils (%) (Auto) 73 % (31-73) Lymphocytes (%) (Auto) 16 % (24-48) Monocytes (%) (Auto) 8 % (0-9) Eosinophils (%) (Auto) 3 % (0-3) Basophils (%) (Auto) 0 % (0-3) Neutrophils # (Auto) 7.4 x10^3uL (1.8-7.7) Lymphocytes # (Auto) 1.6 x10^3/uL (1.0-4.8) Monocytes # (Auto) 0.8 x10^3/uL (0.0-1.1) Eosinophils # (Auto) 0.3 x10^3/uL (0.0-0.7) Basophils # (Auto) 0.0 x10^3/uL (0.0-0.2) Segmented Neutrophils % 72 % (35-66) Band Neutrophils % 5 % (0-9) Lymphocytes % 13 % (24-48) Monocytes % 7 % (0-10) Eosinophils % 2 % (0-5) Myelocytes % 1 % (0-0) Platelet Estimate Adequate (ADEQUATE) Sodium Level 134 mmol/L (136-145) Potassium Level 4.1 mmol/L (3.5-5.1) Chloride Level 96 mmol/L (98-107) Carbon Dioxide Level 30 mmol/L (21-32) Anion Gap 8 (6-14) Blood Urea Nitrogen 10 mg/dL (8-26) Creatinine 0.8 mg/dL (0.7-1.3) Estimated GFR (Cockcroft-Gault) 92.8 BUN/Creatinine Ratio 13 (6-20) Glucose Level 288 mg/dL (70-99) Calcium Level 8.1 mg/dL (8.5-10.1) Phosphorus Level 2.1 mg/dL (2.6-4.7) Magnesium Level 1.4 mg/dL (1.8-2.4) Total Bilirubin 0.4 mg/dL (0.2-1.0) Aspartate Amino Transf (AST/SGOT) 111 U/L (15-37) Alanine Aminotransferase (ALT/SGPT) 253 U/L (16-63) Alkaline Phosphatase 303 U/L (46-116) Total Protein 6.0 g/dL (6.4-8.2) Albumin 1.9 g/dL (3.4-5.0) Albumin/Globulin Ratio 0.5 (1.0-1.7) Laboratory Tests Test 05/13/18 03:15 05/13/18 11:59 White Blood Count 10.1 x10^3/uL (4.0-11.0) Red Blood Count 4.11 x10^6/uL (4.30-5.70) Hemoglobin 11.7 g/dL (13.0-17.5) Hematocrit 35.6 % (39.0-53.0) Mean Corpuscular Volume 87 fL (79-100) Mean Corpuscular Hemoglobin 29 pg (25-35) Mean Corpuscular Hemoglobin Concent 33 g/dL (31-37) Red Cell Distribution Width 14.8 % (11.5-14.5) Platelet Count 308 x10^3/uL (140-400) Neutrophils (%) (Auto) 73 % (31-73) Lymphocytes (%) (Auto) 16 % (24-48) Monocytes (%) (Auto) 8 % (0-9) Eosinophils (%) (Auto) 3 % (0-3) Basophils (%) (Auto) 0 % (0-3) Neutrophils # (Auto) 7.4 x10^3uL (1.8-7.7) Lymphocytes # (Auto) 1.6 x10^3/uL (1.0-4.8) Monocytes # (Auto) 0.8 x10^3/uL (0.0-1.1) Eosinophils # (Auto) 0.3 x10^3/uL (0.0-0.7) Basophils # (Auto) 0.0 x10^3/uL (0.0-0.2) Segmented Neutrophils % 72 % (35-66) Band Neutrophils % 5 % (0-9) Lymphocytes % 13 % (24-48) Monocytes % 7 % (0-10) Eosinophils % 2 % (0-5) Myelocytes % 1 % (0-0) Platelet Estimate Adequate (ADEQUATE) Sodium Level 134 mmol/L (136-145) Potassium Level 4.1 mmol/L (3.5-5.1) Chloride Level 96 mmol/L (98-107) Carbon Dioxide Level 30 mmol/L (21-32) Anion Gap 8 (6-14) Blood Urea Nitrogen 10 mg/dL (8-26) Creatinine 0.8 mg/dL (0.7-1.3) Estimated GFR (Cockcroft-Gault) 92.8 BUN/Creatinine Ratio 13 (6-20) Glucose Level 288 mg/dL (70-99) Calcium Level 8.1 mg/dL (8.5-10.1) Phosphorus Level 2.1 mg/dL (2.6-4.7) Magnesium Level 1.4 mg/dL (1.8-2.4) Total Bilirubin 0.4 mg/dL (0.2-1.0) Aspartate Amino Transf (AST/SGOT) 111 U/L (15-37) Alanine Aminotransferase (ALT/SGPT) 253 U/L (16-63) Alkaline Phosphatase 303 U/L (46-116) Total Protein 6.0 g/dL (6.4-8.2) Albumin 1.9 g/dL (3.4-5.0) Albumin/Globulin Ratio 0.5 (1.0-1.7) Glucose (Fingerstick) 382 mg/dL (70-99) Microbiology 05/10/18 Blood Culture - Preliminary, Resulted NO GROWTH AFTER 2 DAYS 05/11/18 Anaerobic/Aerobic Culture, Resulted Pending 05/11/18 Anaerobic Culture Result 1 (AMBROCIO), Resulted Pending 05/11/18 Aerobic Culture, Resulted Pending 05/11/18 Aerobic Culture Result 1 (AMBROCIO), Resulted Pending 05/11/18 Gram Stain - Final, Resulted 05/11/18 Gram Stain Result 1 (AMBROCIO) - Final, Resulted 05/11/18 Gram Stain Result 2 (AMBROCIO) - Final, Resulted 05/11/18 Gram Stain Result 3 (AMBROCIO) - Final, Resulted 05/11/18 Gram Stain Result 4 (AMBROCIO) - Final, Resulted Medications Current Medications Hyoscyamine (Anaspaz) 0.125 mg ONCE ONCE PO Last administered on 05/10/18at 12: 07; Start 05/10/18 at 11:30; Stop 05/10/18 at 11:32; Status DC Ondansetron HCl (Zofran) 4 mg 1X ONCE IV Last administered on 05/10/18at 12:09 ; Start 05/10/18 at 11:30; Stop 05/10/18 at 11:32; Status DC Sodium Chloride 500 ml @ 500 mls/hr 1X ONCE IV Last administered on at 12:04; Start 05/10/18 at 11:30; Stop 05/10/18 at 12:29; Status DC Iohexol (Omnipaque 240 Mg/ml) 30 ml 1X ONCE PO Last administered on 05/10/18at 12:00; Start 05/10/18 at 12:00; Stop 05/10/18 at 12:01; Status DC Iohexol (Omnipaque 300 Mg/ml) 75 ml 1X ONCE IV Last administered on 05/10/18 13:08; Start 05/10/18 at 12:00; Stop 05/10/18 at 12:01; Status DC Info (CONTRAST GIVEN -- Rx MONITORING) 1 each PRN DAILY PRN MC SEE COMMENTS; Start 05/10/18 at 12:00; Stop 05/12/18 at 11:59; Status DC Ciprofloxacin/ Dextrose 200 ml @ 200 mls/hr 1X ONCE IV Last administered on 15:58; Start 05/10/18 at 14:30; Stop 05/10/18 at 15:29; Status DC Metronidazole 100 ml @ 100 mls/hr 1X ONCE IV Last administered on 05/10/18at 15:57; Start 05/10/18 at 14:30; Stop 05/10/18 at 15:29; Status DC Ondansetron HCl (Zofran) 4 mg PRN Q8HRS PRN IV NAUSEA/VOMITING; Start 05/10/18 at 14:45; Stop 05/11/18 at 14:44; Status DC Morphine Sulfate (Morphine Sulfate) 2 mg PRN Q2HR PRN IV PAIN Last administered on 05/10/18 16:29; Start 05/10/18 at 14:45; Stop 05/10/18 at 17:27 ; Status DC Sodium Chloride 1,000 ml @ 125 mls/hr Q8H IV Last administered on 05/11/18 08 :26; Start 05/10/18 at 15:00; Stop 05/11/18 at 14:59; Status DC Acetaminophen (Tylenol) 650 mg PRN Q4HRS PRN PO FEVER; Start 05/10/18 at 14:45 ; Stop 05/11/18 at 14:44; Status DC Ciprofloxacin/ Dextrose 200 ml @ 200 mls/hr Q12HR IV ; Start 05/11/18 at 09:00 ; Stop 05/11/18 at 09:00; Status DC Metronidazole 100 ml @ 100 mls/hr Q12HR IV ; Start 05/10/18 at 21:00; Stop at 21:00; Status DC Morphine Sulfate (Morphine Sulfate) 4 mg PRN Q2HR PRN IV PAIN Last administered on 05/13/18at 06:27; Start 05/10/18 at 17:30 Fentanyl Citrate (Fentanyl 2ml Vial) 50 mcg 1X ONCE IV Last administered on at 17:32; Start 05/10/18 at 17:30; Stop 05/10/18 at 17:31; Status DC Ketorolac Tromethamine (Toradol 15mg Vial) 15 mg 1X ONCE IV Last administered on 05/10/18at 17:36; Start 05/10/18 at 17:30; Stop 05/10/18 at 17:31; Status DC Enoxaparin Sodium (Lovenox Per Pharmacy Prophylaxis Dosing) 1 each PRN DAILY PRN MC SEE COMMENTS; Start 05/10/18 at 17:45; Status Cancel Metronidazole 100 ml @ 100 mls/hr Q12HR IV ; Start 05/11/18 at 09:00; Stop at 09:00; Status DC Enoxaparin Sodium (Lovenox 40mg Syringe) 40 mg QHS SQ Last administered on 05/10at 21:33; Start 05/10/18 at 21:00; Stop 05/10/18 at 21:37; Status DC Zolpidem Tartrate (Ambien) 5 mg PRN QHS PRN PO INSOMNIA Last administered on at 23:32; Start 05/10/18 at 23:15 Meropenem 500 mg/ Sodium Chloride 50 ml @ 100 mls/hr Q6HRS IV Last administered on 05/13/18at 13:22; Start 05/11/18 at 06:30 Linezolid/Dextrose 300 ml @ 300 mls/hr Q12HR IV Last administered on at 09:43; Start 05/11/18 at 09:00 Micafungin Sodium 100 mg/Dextrose 100 ml @ 100 mls/hr Q24H IV Last administered on 05/13/18at 08:20; Start 05/11/18 at 08:00 Clotrimazole (Mycelex) 10 mg 5XDAY MM Last administered on 05/13/18at 13:29; Start 05/11/18 at 08:00 Lidocaine/Sodium Bicarbonate (Buffered Lidocaine 1%) 3 ml STK-MED ONCE .ROUTE ; Start 05/11/18 at 13:28; Stop 05/11/18 at 13:29; Status DC Insulin Human Lispro (HumaLOG) 0-5 UNITS TIDWMEALS SQ Last administered on 05/11at 17:00; Start 05/11/18 at 17:00; Stop 05/11/18 at 21:35; Status DC Dextrose (Dextrose 50%-Water Syringe) 12.5 gm PRN Q15MIN PRN IV SEE COMMENTS; Start 05/11/18 at 14:15 Midazolam HCl (Versed) 2 mg STK-MED ONCE .ROUTE ; Start 05/11/18 at 14:19; Stop 05/11/18 at 14:20; Status DC Fentanyl Citrate (Fentanyl 2ml Vial) 100 mcg STK-MED ONCE .ROUTE ; Start at 14:19; Stop 05/11/18 at 14:20; Status DC Lidocaine/Sodium Bicarbonate (Buffered Lidocaine 1%) 6 ml 1X ONCE IJ Last administered on 05/11/18at 14:36; Start 05/11/18 at 14:45; Stop 05/11/18 at 14:46 ; Status DC Midazolam HCl (Versed) 1 mg 1X ONCE IV Last administered on 05/11/18at 14:37; Start 05/11/18 at 14:45; Stop 05/11/18 at 14:46; Status DC Fentanyl Citrate (Fentanyl 2ml Vial) 50 mcg 1X ONCE IV Last administered on at 14:37; Start 05/11/18 at 14:45; Stop 05/11/18 at 14:46; Status DC Enoxaparin Sodium (Lovenox Per Pharmacy Prophylaxis Dosing) 1 each PRN DAILY PRN MC SEE COMMENTS; Start 05/12/18 at 09:00 Enoxaparin Sodium (Lovenox 40mg Syringe) 40 mg Q24H SQ Last administered on at 21:02; Start 05/11/18 at 21:00; Stop 05/13/18 at 22:00 Oxycodone/ Acetaminophen (Percocet 5/325) 1 tab PRN Q4HRS PRN PO PAIN Last administered on 05/11/18at 21:12; Start 05/11/18 at 16:30 Insulin Human Lispro (HumaLOG) 0-5 UNITS QIDACHS SQ Last administered on at 22:01; Start 05/11/18 at 21:40; Stop 05/12/18 at 07:35; Status DC Ondansetron HCl (Zofran) 4 mg PRN Q6HRS PRN IV NAUSEA/VOMITING 1ST CHOICE Last administered on 05/13/18at 06:34; Start 05/12/18 at 06:15 Insulin Human Lispro (HumaLOG) 0-7 UNITS QIDACHS SQ Last administered on at 12:09; Start 05/12/18 at 08:00 Lactobacillus Rhamnosus (Culturelle) 1 cap BID PO Last administered on at 08:19; Start 05/12/18 at 21:00 Info (Tpn Per Pharmacy) 1 each PRN DAILY PRN MC SEE COMMENTS Last administered on 05/13/18at 12:29; Start 05/12/18 at 15:30 Pantoprazole Sodium (PROTONIX VIAL for IV PUSH) 40 mg DAILYAC IVP Last administered on 05/13/18at 06:27; Start 05/13/18 at 07:30 Amlodipine Besylate (Norvasc) 5 mg DAILY PO Last administered on 05/13/18at 08: 19; Start 05/13/18 at 09:00 Carvedilol (Coreg) 12.5 mg BIDWMEALS PO Last administered on 05/13/18at 08:19; Start 05/13/18 at 08:15 Aspirin (Ecotrin) 81 mg DAILYWBKFT PO ; Start 05/14/18 at 08:00; Status UNV Atorvastatin Calcium (Lipitor) 40 mg QHS PO ; Start 05/13/18 at 21:00; Stop at 21:00; Status DC Vitamin D (Vitamin D3) 2,000 unit DAILY PO Last administered on 05/13/18at 12:05 ; Start 05/13/18 at 10:00 Insulin Glargine (Lantus) 12 units DAILY10 SQ Last administered on 05/13/18at 12 :09; Start 05/13/18 at 10:00 Lactobacillus Rhamnosus (Culturelle) 1 cap BID PO ; Start 05/13/18 at 10:00; Status Cancel Saliva Substitute (Biotene Moisturizing Mouth) 2 spray PRN Q15MIN PRN PO DRY MOUTH; Start 05/13/18 at 09:15 Ticagrelor (Brilinta) 90 mg BID PO ; Start 05/13/18 at 21:00; Status UNV Non-Formulary Medication (Budesonide/ Formoterol Fumarate (Symbicort 80-4.5 Mcg Inhaler)) 1 puff BID IH ; Start 05/13/18 at 21:00; Status UNV Non-Formulary Medication (Carisoprodol (Soma)) 1 tab BID PO ; Start 05/13/18 at 21:00; Status UNV Glimepiride (Amaryl) 4 mg DAILY PO Last administered on 05/13/18at 12:05; Start 05/13/18 at 10:00 Magnesium Oxide (Magnesium Oxide) 200 mg DAILY PO Last administered on at 12:04; Start 05/13/18 at 10:00 Metformin HCl (Glucophage) 500 mg BIDWMEALS PO ; Start 05/13/18 at 10:00; Stop 05/13/18 at 11:49; Status DC Non-Formulary Medication (Omeprazole ) 1 cap DAILY PO ; Start 05/14/18 at 09:00 ; Status UNV Insulin Human Lispro (HumaLOG) 8 units 1X ONCE SQ Last administered on at 12:08; Start 05/13/18 at 10:00; Stop 05/13/18 at 10:02; Status DC Info (Tpn Per Pharmacy) 1 each PRN DAILY PRN MC SEE COMMENTS; Start 05/13/18 at 09:30; Status Cancel Albuterol Sulfate (Ventolin Neb Soln) 2.5 mg Q6HRS NEB Last administered on at 13:02; Start 05/13/18 at 12:00; Stop 05/13/18 at 13:49; Status DC Budesonide (Pulmicort) 0.5 mg RTBID NEB ; Start 05/13/18 at 10:00 Lidocaine/Sodium Bicarbonate (Buffered Lidocaine 1%) 3 ml STK-MED ONCE .ROUTE ; Start 05/13/18 at 10:56; Stop 05/13/18 at 10:57; Status DC Lidocaine/Sodium Bicarbonate (Buffered Lidocaine 1%) 3 ml 1X ONCE INJ Last administered on 05/13/18at 11:18; Start 05/13/18 at 11:15; Stop 05/13/18 at 11:31 ; Status DC Iodixanol (Visipaque 320) 50 ml STK-MED ONCE .ROUTE ; Start 05/13/18 at 11:20; Stop 05/13/18 at 11:21; Status DC Iodixanol (Visipaque 320) 50 ml STK-MED ONCE .ROUTE ; Start 05/13/18 at 11:21; Stop 05/13/18 at 11:22; Status DC Iodixanol (Visipaque 320) 50 ml 1X ONCE IV Last administered on 05/13/18at 11: 40; Start 05/13/18 at 11:45; Stop 05/13/18 at 11:48; Status DC Info (CONTRAST GIVEN -- Rx MONITORING) 1 each PRN DAILY PRN MC SEE COMMENTS; Start 05/13/18 at 12:00; Stop 05/15/18 at 11:59 Metformin HCl (Glucophage) 500 mg BIDWMEALS PO ; Start 05/15/18 at 17:00 Magnesium Sulfate 50 ml @ 25 mls/hr 1X ONCE IV Last administered on 05/13/18at 13:22; Start 05/13/18 at 13:00; Stop 05/13/18 at 14:59 Sodium Phosphate 20 mmol/Dextrose 256.6667 ml @ 64.167 m... 1X ONCE IV Last administered on 05/13/18at 13:23; Start 05/13/18 at 13:00; Stop 05/13/18 at 16:59 Sodium Chloride 90 meq/Potassium Chloride 50 meq/ Potassium Phosphate 25 mmol/ Magnesium Sulfate 20 meq/Calcium Gluconate 10 meq/ Multivitamins 10 ml/Chromium / Copper/Manganese/ Seleni/Zn 1 ml/ Total Parenteral Nutrition/Amino Acids/ Dextrose/ Fat Emulsion Intravenous 1,512 ml @ 63 mls/hr TPN CONT IV ; Start at 22:00; Stop 05/14/18 at 21:59 Enoxaparin Sodium (Lovenox 40mg Syringe) 40 mg Q24H SQ ; Start 05/15/18 at 09:00 Albuterol Sulfate (Ventolin Neb Soln) 2.5 mg PRN Q6HRS PRN NEB SHORTNESS OF BREATH; Start 05/13/18 at 14:00 Active Scripts Active Cipro (Ciprofloxacin Hcl) 500 Mg Tablet 1 Tab PO BID 14 Days Biotene Moisturizing Mouth (Saliva Stimulant Agents Comb.3) 44.3 Ml [place] 2 [place] PO PRN Q15MIN PRN 30 Days Lantus Solostar (Insulin Glargine,Hum.rec.anlog) 100 Unit/1 Ml Insuln.pen 12 Units SQ DAILY10 30 Days Culturelle (Lactobacillus Rhamnosus Gg) 1 Each Cap.sprink 1 Cap PO BID 28 Days Lipitor (Atorvastatin Calcium) 40 Mg Tablet 1 Tab PO QHS Aspirin Ec (Aspirin) 81 Mg Tablet. 81 Mg PO DAILYWBKFT Brilinta (Ticagrelor) 90 Mg Tablet 90 Mg PO BID Reported Metformin Hcl 500 Mg Tablet 500 Mg PO BIDWMEALS Soma (Carisoprodol) 350 Mg Tablet 1 Tab PO BID Omeprazole 40 Mg Capsule.dr 1 Cap PO DAILY Symbicort 80-4.5 Mcg Inhaler (Budesonide/Formoterol Fumarate) 10.2 Gm Hfa.aer.ad 1 Puff IH BID Amaryl (Glimepiride) 4 Mg Tablet 1 Tab PO DAILY Amlodipine Besylate 5 Mg Tablet 5 Mg PO DAILY Carvedilol (Carvedilol) 12.5 Mg Tablet 1 Tab PO BID Colestipol Hcl 1 Gm Tablet 2 Gm PO 1X Magnesium Oxide 400 Mg Tablet 250 Tab PO DAILY Vitamin D3 (Cholecalciferol (Vitamin D3)) 1,000 Unit Tablet 2,000 Tab PO DAILY Vitals/I & O Vital Sign - Last 24 Hours 05/12/18 05/12/18 05/12/18 05/12/18 15:00 18:11 19:00 20:00 Temp 98.8 98.3 98.8 98.3 Pulse 106 103 Resp 18 16 B/P (MAP) 125/80 (95) 119/69 (86) Pulse Ox 95 95 93 O2 Delivery Room Air Room Air Room Air Room Air 05/12/18 05/12/18 05/13/18 05/13/18 22:07 22:26 03:00 06:27 Temp 98.4 98.4 98.4 98.4 Pulse 78 78 Resp 18 18 20 B/P (MAP) 115/71 (86) 115/71 (86) Pulse Ox 95 93 93 93 O2 Delivery Room Air Room Air Room Air Room Air 05/13/18 05/13/18 05/13/18 05/13/18 06:57 07:00 08:00 08:19 Temp 97.7 97.7 Pulse 117 117 Resp 20 18 B/P (MAP) 129/78 (95) 129/78 Pulse Ox 93 94 O2 Delivery Room Air Room Air Room Air 05/13/18 05/13/18 08:19 13:07 Pulse 117 B/P (MAP) 129/78 Pulse Ox 94 O2 Delivery Room Air Intake and Output 05/12/18 05/12/18 05/13/18 14:59 22:59 06:59 Intake Total 480 ml 300 ml 100 ml Output Total 50 ml 50 ml 35 ml Balance 430 ml 250 ml 65 ml ANITA ALVARADO MD May 13, 2018 14:17
[2018-05-13 15:00] VITALS: BP 99/53
[2018-05-13] MEDS: ASPIRIN ENTERIC COATED 81 MG TABLET.DR. PO SCH (17:14)
[2018-05-13] MEDS ORDERED: MAGNESIUM SULFATE 4GM 100 ML IV ONE (18:00)
[2018-05-13 19:00] VITALS: BP 112/70
--- NOTE | 2018-05-13 19:17 | NUR ---
Flushed drain with 10cc of saline. Pt tolerated well.
[2018-05-13] MEDS ORDERED: ATORVASTATIN CALCIUM 40 MG TABLET. PO SCH (21:00)
[2018-05-13] MEDS ORDERED: NON FORMULARY ITEM (Budesonide/Formoterol Fumarate (Symbicort 80-4.5 Mcg Inhaler) 1 PUFF) IH SCH (21:00)
[2018-05-13] MEDS ORDERED: TICAGRELOR 90 MG TABLET. PO SCH (21:00)
[2018-05-13] MEDS: CARISOPRODOL PO SCH (21:00)
[2018-05-13] MEDS: ENOXAPARIN 40 MG/0.4 ML SYRINGE. SQ SCH (21:19)
[2018-05-13] MEDS: METOPROLOL TART IMMED RELEASE 50 MG TABLET. PO SCH (21:19)
[2018-05-13] MEDS ORDERED: TOTAL PARENTERAL NUTRITION IV SCH ×10 (22:00)
[2018-05-13] MEDS ORDERED: AMINO ACID IV SCH ×10 (22:00)
[2018-05-13] MEDS ORDERED: [UNRECOGNIZED DRUG - OTHER] IV SCH ×10 (22:00)
[2018-05-13] MEDS ORDERED: DEXTROSE 70% IV SCH ×10 (22:00)
[2018-05-13 23:00] VITALS: BP 128/72
[2018-05-14] MEDS: MEROPENEM 500 MG in IV NORMAL SALINE 50ML 50 ML IV SCH ×5 (00:59→23:40)
[2018-05-14 02:48] VITALS: BP 129/88
[2018-05-14] MEDS: CLOTRIMAZOLE 10 MG TROCHE. MM SCH ×5 (05:59→20:41)
[2018-05-14] MEDS: PANTOPRAZOLE IV PUSH 40 MG VIAL. IVP SCH (05:59)
[2018-05-14 06:17] LABS: CALCIUM 8.1 mg/dL (8.5-10.1); CREATININE 0.8 mg/dL (0.7-1.3); GFR 92.8; MAGNESIUM 1.8 mg/dL (1.8-2.4); PHOSPHORUS 2.5 mg/dL (2.6-4.7); POTASSIUM 4.6 mmol/L (3.5-5.1)
[2018-05-14 07:00] VITALS: BP 139/80
[2018-05-14] MEDS: INSULIN LISPRO 300 UNITS/3 ML INSULN.PEN. SQ SCH ×7 (07:30→21:45)
[2018-05-14] MEDS: BUDESONIDE 0.5 MG/2 ML NEBU. NEB SCH ×2 (08:00→20:00)
[2018-05-14] MEDS ORDERED: ASPIRIN ENTERIC COATED 81 MG TABLET.DR. PO SCH (08:00)
--- NOTE | 2018-05-14 08:20 | NUR ---
Dr. Marcos notified of trend of high BS and am BS of 357. Orders received.
[2018-05-14] MEDS: GLIMEPIRIDE 2 MG TABLET. PO SCH (08:23)
[2018-05-14] MEDS: CHOLECALCIFEROL (VITAMIN D3) 1,000 UNIT TABLET PO SCH (08:23)
[2018-05-14] MEDS: MAGNESIUM OXIDE 400 MG TABLET PO SCH (08:24)
[2018-05-14] MEDS: LACTOBACILLUS RHAMNOSUS GG 1 CAPSULE. PO SCH ×2 (08:24→21:00)
[2018-05-14] MEDS: amLODIPine BESYLATE 5 MG TABLET PO SCH (08:24)
[2018-05-14] MEDS: METOPROLOL TART IMMED RELEASE 50 MG TABLET. PO SCH ×2 (08:25→20:41)
[2018-05-14] MEDS: ASPIRIN ENTERIC COATED 81 MG TABLET.DR. PO SCH (08:26)
[2018-05-14] MEDS: CARISOPRODOL PO SCH ×2 (08:26→21:00)
[2018-05-14] MEDS: MICAFUNGIN 100 MG in IV DEXTROSE 5% 100ML 100 ML IV SCH (08:27)
[2018-05-14] MEDS ORDERED: INSULIN LISPRO 300 UNITS/3 ML INSULN.PEN. SQ ONE ×4 (08:30→21:45)
--- NOTE | 2018-05-14 08:42 | PDOC ---
Infectious Disease Note Subjective Subjective Still some pain but controlled. Has been ambulating some S/p drain 05/11. No F/C/S/SOA/ Rash Vital Sign Vital Signs Vital Signs Date Time Temp Pulse Resp B/P (MAP) Pulse Ox O2 Delivery O2 Flow Rate FiO2 05/14/18 08:25 100 139/80 05/14/18 07:15 Room Air 05/14/18 07:00 98.4 18 96 98.4 05/13/18 21:39 2.0 Physical Exam PHYSICAL EXAM GENERAL: Propped up in bed, alert, NAD HEENT: Pupils equal and reactive. Oral cavity, pharynx has some mild thrush - better. dentures NECK: Supple, no JVD. LUNGS: Clear to auscultation, HEART: S1, S2. ABDOMEN: Nondistended, soft. BS present mild tenderness. JEREMY LLQ with purulent material EXTREMITIES: No clubbing, cyanosis or gross edema. SKIN: Warm to touch without signs of rash. NEUROLOGIC: Alert, nonfocal and appropriate. IV Labs Lab Laboratory Tests Test 05/13/18 11:59 05/13/18 16:55 05/13/18 18:00 05/14/18 05:45 Glucose (Fingerstick) 382 mg/dL (70-99) 220 mg/dL (70-99) 270 mg/dL (70-99) Sodium Level 131 mmol/L (136-145) Potassium Level 4.6 mmol/L (3.5-5.1) Chloride Level 96 mmol/L (98-107) Carbon Dioxide Level 31 mmol/L (21-32) Anion Gap 4 (6-14) Blood Urea Nitrogen 12 mg/dL (8-26) Creatinine 0.8 mg/dL (0.7-1.3) Estimated GFR (Cockcroft-Gault) 92.8 Glucose Level 343 mg/dL (70-99) Calcium Level 8.1 mg/dL (8.5-10.1) Phosphorus Level 2.5 mg/dL (2.6-4.7) Magnesium Level 1.8 mg/dL (1.8-2.4) Test 05/14/18 08:00 Glucose (Fingerstick) 357 mg/dL (70-99) Micro Cults ANAEROBIC-AEROBIC CULTURE PENDING ANAEROBIC RES 1 PENDING AEROBIC CULT PENDING AEROBIC RES 1 PENDING GRAM STAIN Final Final report GRAM STAIN RES 1 Final Comment No white blood cells seen. GRAM STAIN RES 2 Final Comment Few gram negative rods. GRAM STAIN RES 3 Final Comment Few gram positive cocci GRAM STAIN RES 4 Final Comment CONTINUED ON NEXT PAGE RUN DATE: 05/12/18 PAGE 2 RUN TIME: 1809 [facility] [address] [place] [address] Jonathan Sauceda M.D., Crystal Attacher SPEC: [id number] PATIENT: EDITH SELBY [id number] ( Continued) Procedure Result GRAM STAIN RES 4 Final (continued) Few gram positive rods. CT abd 05/10 IMPRESSION: Persistent inflammatory changes are identified involving the colon with reaccumulation of a gas and fluid containing multilobulated cavity within the central lower pelvis. Findings are concerning for an abscess. This collection contains oral contrast suggestive of communication between the sigmoid colon and the collection. There is extensive diverticulosis with associated wall thickening which may be seen in setting of diverticulitis. No gas is identified within the urinary bladder Jayce 04/21 ANAEROBIC-AEROBIC CULTURE Final Final report ANAEROBIC RES 1 Final Bacteroides uniformis 4+ AEROBIC CULT Final Final report AEROBIC RES 1 Final Escherichia coli 4+ AEROBIC RES 2 Final Klebsiella aerogenes 4+ AEROBIC RES 3 Final Mixed skin mireya 1+ ANTIMICROBIAL SUSCEPTIBILITY Final Comment S = Susceptible; I = Intermediate; R = Resistant P = Positive; N = Negative MICS are expressed in micrograms per mL Antibiotic RSLT#1 RSLT#2 RSLT#3 RSLT#4 Amoxicillin/Clavulanic Acid S =4 R>=32 CONTINUED ON NEXT PAGE RUN DATE: 04/26/18 PAGE 2 RUN TIME: 1815 [facility] [address] [place] [address] Jonathan Sauceda M.D., Crystal Attacher SPEC: [id number] PATIENT: EDITH SELBY [id number] ( Continued) Procedure Result ANTIMICROBIAL SUSCEPTIBILITY Final (continued) Ampicillin S =4 Cefazolin R>=64 Cefepime S<=0.12 S<=0.12 Ceftriaxone S<=0.25 S<=0.25 Cefuroxime S =4 R =R Ciprofloxacin R>=4 S<=0.25 Ertapenem S<=0.12 S<=0.12 Gentamicin S<=1 S<=1 Imipenem S<=0.25 S =1 Levofloxacin R>=8 S<=0.12 Meropenem S<=0.25 S<=0.25 Piperacillin/Tazobactam S<=4 Tetracycline S<=1 S<=1 Tobramycin S<=1 S<=1 Trimethoprim/Sulfa S<=20 S<=20 Objective Assessment Leukocytosis - better Recurrent diverticulitis Recurrent Abd abscesses - h/o IR drainage 04/21 gram stain with Bacteroides/E. coli (R quinolones), Klebsiella so far (yeast on gram stain) s/p Drain 05/11- GNR /GPC/GPR/Yeast Transaminitis - better Thrush - better DM Plan Plan of Care Cont Meropenem/Zyvox and Micafungin Mycelex kalyan F/u labs and cults Surgey scheduled soon AUNG CASTRO MD May 14, 2018 08:42
[2018-05-14] MEDS ORDERED: NON FORMULARY ITEM (Omeprazole 1 CAP) PO SCH (09:00)
--- NOTE | 2018-05-14 09:36 | PDOC ---
SURGICAL PROGRESS NOTE Subjective Pt feels better, strength better, stefany PO well, having loose stools, still with some pain Vital Signs Vital Signs Date Time Temp Pulse Resp B/P (MAP) Pulse Ox O2 Delivery O2 Flow Rate FiO2 05/14/18 08:25 100 139/80 05/14/18 07:15 Room Air 05/14/18 07:00 98.4 18 96 98.4 05/13/18 21:39 2.0 I&O Intake and Output 05/14/18 07:00 Intake Total 895 ml Output Total 60 ml Balance 835 ml Intake Oral 895 ml Output Drainage Total 60 ml # Voids 4 # Bowel Movements 1 General: Alert, Oriented X3, Cooperative, No acute distress Abdomen: Soft, Other (mild TTP and drain with purulent material) Labs Laboratory Tests Test 05/12/18 10:58 05/13/18 03:15 05/13/18 11:59 05/13/18 16:55 Glucose (Fingerstick) 289 mg/dL (70-99) 382 mg/dL (70-99) 220 mg/dL (70-99) White Blood Count 10.1 x10^3/uL (4.0-11.0) Red Blood Count 4.11 x10^6/uL (4.30-5.70) Hemoglobin 11.7 g/dL (13.0-17.5) Hematocrit 35.6 % (39.0-53.0) Mean Corpuscular Volume 87 fL (79-100) Mean Corpuscular Hemoglobin 29 pg (25-35) Mean Corpuscular Hemoglobin Concent 33 g/dL (31-37) Red Cell Distribution Width 14.8 % (11.5-14.5) Platelet Count 308 x10^3/uL (140-400) Neutrophils (%) (Auto) 73 % (31-73) Lymphocytes (%) (Auto) 16 % (24-48) Monocytes (%) (Auto) 8 % (0-9) Eosinophils (%) (Auto) 3 % (0-3) Basophils (%) (Auto) 0 % (0-3) Neutrophils # (Auto) 7.4 x10^3uL (1.8-7.7) Lymphocytes # (Auto) 1.6 x10^3/uL (1.0-4.8) Monocytes # (Auto) 0.8 x10^3/uL (0.0-1.1) Eosinophils # (Auto) 0.3 x10^3/uL (0.0-0.7) Basophils # (Auto) 0.0 x10^3/uL (0.0-0.2) Segmented Neutrophils % 72 % (35-66) Band Neutrophils % 5 % (0-9) Lymphocytes % 13 % (24-48) Monocytes % 7 % (0-10) Eosinophils % 2 % (0-5) Myelocytes % 1 % (0-0) Platelet Estimate Adequate (ADEQUATE) Sodium Level 134 mmol/L (136-145) Potassium Level 4.1 mmol/L (3.5-5.1) Chloride Level 96 mmol/L (98-107) Carbon Dioxide Level 30 mmol/L (21-32) Anion Gap 8 (6-14) Blood Urea Nitrogen 10 mg/dL (8-26) Creatinine 0.8 mg/dL (0.7-1.3) Estimated GFR (Cockcroft-Gault) 92.8 BUN/Creatinine Ratio 13 (6-20) Glucose Level 288 mg/dL (70-99) Calcium Level 8.1 mg/dL (8.5-10.1) Phosphorus Level 2.1 mg/dL (2.6-4.7) Magnesium Level 1.4 mg/dL (1.8-2.4) Total Bilirubin 0.4 mg/dL (0.2-1.0) Aspartate Amino Transf (AST/SGOT) 111 U/L (15-37) Alanine Aminotransferase (ALT/SGPT) 253 U/L (16-63) Alkaline Phosphatase 303 U/L (46-116) Total Protein 6.0 g/dL (6.4-8.2) Albumin 1.9 g/dL (3.4-5.0) Albumin/Globulin Ratio 0.5 (1.0-1.7) Test 05/13/18 18:00 05/14/18 05:45 05/14/18 08:00 Glucose (Fingerstick) 270 mg/dL (70-99) 357 mg/dL (70-99) Sodium Level 131 mmol/L (136-145) Potassium Level 4.6 mmol/L (3.5-5.1) Chloride Level 96 mmol/L (98-107) Carbon Dioxide Level 31 mmol/L (21-32) Anion Gap 4 (6-14) Blood Urea Nitrogen 12 mg/dL (8-26) Creatinine 0.8 mg/dL (0.7-1.3) Estimated GFR (Cockcroft-Gault) 92.8 Glucose Level 343 mg/dL (70-99) Calcium Level 8.1 mg/dL (8.5-10.1) Phosphorus Level 2.5 mg/dL (2.6-4.7) Magnesium Level 1.8 mg/dL (1.8-2.4) Laboratory Tests Test 05/13/18 11:59 05/13/18 16:55 05/13/18 18:00 05/14/18 05:45 Glucose (Fingerstick) 382 mg/dL (70-99) 220 mg/dL (70-99) 270 mg/dL (70-99) Sodium Level 131 mmol/L (136-145) Potassium Level 4.6 mmol/L (3.5-5.1) Chloride Level 96 mmol/L (98-107) Carbon Dioxide Level 31 mmol/L (21-32) Anion Gap 4 (6-14) Blood Urea Nitrogen 12 mg/dL (8-26) Creatinine 0.8 mg/dL (0.7-1.3) Estimated GFR (Cockcroft-Gault) 92.8 Glucose Level 343 mg/dL (70-99) Calcium Level 8.1 mg/dL (8.5-10.1) Phosphorus Level 2.5 mg/dL (2.6-4.7) Magnesium Level 1.8 mg/dL (1.8-2.4) Test 05/14/18 08:00 Glucose (Fingerstick) 357 mg/dL (70-99) Problem List abd abscess, suspect secondary to diverticulitis TO OR in AM for laparoscopic versus open exploration, possible bowel resection, possible ostomy appreciate cardiology evaluation and help. Appreciate hospitalist help in DM management Unable to delay surgery, given recurrent nature of abscess. Pt does represent somewhat poor candidate, given poor DM and cardiac history, but surgery needed given perforation R/R/B/A d/w pt. Risks, including, but not limited to: bleeding, infection, damage to surrounding structures, risk of anesthesia. He appears to understand, his questions are answered and he elects to proceed. LUIZA JOHNSON MD May 14, 2018 09:36
--- NOTE | 2018-05-14 09:38 | PDOC ---
SURGICAL PROGRESS NOTE Subjective resting some lower abd pain, drain site pain Vital Signs Vital Signs Date Time Temp Pulse Resp B/P (MAP) Pulse Ox O2 Delivery O2 Flow Rate FiO2 05/14/18 08:25 100 139/80 05/14/18 07:15 Room Air 05/14/18 07:00 98.4 18 96 98.4 05/13/18 21:39 2.0 I&O Intake and Output 05/14/18 06:59 Intake Total 895 ml Output Total 60 ml Balance 835 ml Intake Oral 895 ml Output Drainage Total 60 ml # Voids 4 # Bowel Movements 1 General: Alert, Oriented X3, Cooperative, No acute distress Abdomen: Soft, Other (drain purulent) Labs Laboratory Tests Test 05/12/18 10:58 05/13/18 03:15 05/13/18 11:59 05/13/18 16:55 Glucose (Fingerstick) 289 mg/dL (70-99) 382 mg/dL (70-99) 220 mg/dL (70-99) White Blood Count 10.1 x10^3/uL (4.0-11.0) Red Blood Count 4.11 x10^6/uL (4.30-5.70) Hemoglobin 11.7 g/dL (13.0-17.5) Hematocrit 35.6 % (39.0-53.0) Mean Corpuscular Volume 87 fL (79-100) Mean Corpuscular Hemoglobin 29 pg (25-35) Mean Corpuscular Hemoglobin Concent 33 g/dL (31-37) Red Cell Distribution Width 14.8 % (11.5-14.5) Platelet Count 308 x10^3/uL (140-400) Neutrophils (%) (Auto) 73 % (31-73) Lymphocytes (%) (Auto) 16 % (24-48) Monocytes (%) (Auto) 8 % (0-9) Eosinophils (%) (Auto) 3 % (0-3) Basophils (%) (Auto) 0 % (0-3) Neutrophils # (Auto) 7.4 x10^3uL (1.8-7.7) Lymphocytes # (Auto) 1.6 x10^3/uL (1.0-4.8) Monocytes # (Auto) 0.8 x10^3/uL (0.0-1.1) Eosinophils # (Auto) 0.3 x10^3/uL (0.0-0.7) Basophils # (Auto) 0.0 x10^3/uL (0.0-0.2) Segmented Neutrophils % 72 % (35-66) Band Neutrophils % 5 % (0-9) Lymphocytes % 13 % (24-48) Monocytes % 7 % (0-10) Eosinophils % 2 % (0-5) Myelocytes % 1 % (0-0) Platelet Estimate Adequate (ADEQUATE) Sodium Level 134 mmol/L (136-145) Potassium Level 4.1 mmol/L (3.5-5.1) Chloride Level 96 mmol/L (98-107) Carbon Dioxide Level 30 mmol/L (21-32) Anion Gap 8 (6-14) Blood Urea Nitrogen 10 mg/dL (8-26) Creatinine 0.8 mg/dL (0.7-1.3) Estimated GFR (Cockcroft-Gault) 92.8 BUN/Creatinine Ratio 13 (6-20) Glucose Level 288 mg/dL (70-99) Calcium Level 8.1 mg/dL (8.5-10.1) Phosphorus Level 2.1 mg/dL (2.6-4.7) Magnesium Level 1.4 mg/dL (1.8-2.4) Total Bilirubin 0.4 mg/dL (0.2-1.0) Aspartate Amino Transf (AST/SGOT) 111 U/L (15-37) Alanine Aminotransferase (ALT/SGPT) 253 U/L (16-63) Alkaline Phosphatase 303 U/L (46-116) Total Protein 6.0 g/dL (6.4-8.2) Albumin 1.9 g/dL (3.4-5.0) Albumin/Globulin Ratio 0.5 (1.0-1.7) Test 05/13/18 18:00 05/14/18 05:45 05/14/18 08:00 Glucose (Fingerstick) 270 mg/dL (70-99) 357 mg/dL (70-99) Sodium Level 131 mmol/L (136-145) Potassium Level 4.6 mmol/L (3.5-5.1) Chloride Level 96 mmol/L (98-107) Carbon Dioxide Level 31 mmol/L (21-32) Anion Gap 4 (6-14) Blood Urea Nitrogen 12 mg/dL (8-26) Creatinine 0.8 mg/dL (0.7-1.3) Estimated GFR (Cockcroft-Gault) 92.8 Glucose Level 343 mg/dL (70-99) Calcium Level 8.1 mg/dL (8.5-10.1) Phosphorus Level 2.5 mg/dL (2.6-4.7) Magnesium Level 1.8 mg/dL (1.8-2.4) Laboratory Tests Test 05/13/18 11:59 05/13/18 16:55 05/13/18 18:00 05/14/18 05:45 Glucose (Fingerstick) 382 mg/dL (70-99) 220 mg/dL (70-99) 270 mg/dL (70-99) Sodium Level 131 mmol/L (136-145) Potassium Level 4.6 mmol/L (3.5-5.1) Chloride Level 96 mmol/L (98-107) Carbon Dioxide Level 31 mmol/L (21-32) Anion Gap 4 (6-14) Blood Urea Nitrogen 12 mg/dL (8-26) Creatinine 0.8 mg/dL (0.7-1.3) Estimated GFR (Cockcroft-Gault) 92.8 Glucose Level 343 mg/dL (70-99) Calcium Level 8.1 mg/dL (8.5-10.1) Phosphorus Level 2.5 mg/dL (2.6-4.7) Magnesium Level 1.8 mg/dL (1.8-2.4) Test 05/14/18 08:00 Glucose (Fingerstick) 357 mg/dL (70-99) Assessment/Plan plans for OR tomorrow DAYNE NEWBERRY APRN May 14, 2018 09:38
[2018-05-14] MEDS ORDERED: INSULIN GLARGINE 300 UNITS/3 ML INSULN.PEN. SQ SCH (10:00)
[2018-05-14 11:00] VITALS: BP 128/68
--- NOTE | 2018-05-14 11:31 | PDOC2 ---
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 They have requested a urology consult for prophylactic ureteral stents. Patient denies a history of prostate cancer, but does have BPH and had a "roto rooter" procedure done about 15-20 years prior at [facility] on his prostate but he cannot remember the name of the physician. He denies hematuria, dysuria, frequency, or other significant LUTS. He has some mild nocturia, going about 1-2 times at night that is not bothersome. He denies a history of kidney stones and is not having any flank pain currently. Past Medical History Cardiovascular: CAD, HTN, Hyperlipidemia Pulmonary: COPD CENTRAL NERVOUS SYSTEM: Other Musculoskeletal: Osteoarthritis ENT: No pertinent hx Renal/: Benign prostatic enlarg. Endocrine: Diabetes Past Surgical History Past Surgical History: Cholecystectomy, Hernia Repair, Other Family History Family History: No Significant, High Cholestrol Social History No ALCOHOL: rare Drugs: None Lives: with Family Current Problem List Problems: (1) Abdominal abscess Current Medications Current Medications Current Medications Albuterol Sulfate (Ventolin Neb Soln) 2.5 mg PRN Q6HRS PRN NEB SHORTNESS OF BREATH; Start 05/13/18 at 14:00 Albuterol Sulfate (Ventolin Neb Soln) 2.5 mg Q6HRS NEB Last administered on at 13:02; Start 05/13/18 at 12:00; Stop 05/13/18 at 13:49; Status DC Aspirin (Ecotrin) 81 mg DAILYWBKFT PO Last administered on 05/14/18at 08:26; Start 05/13/18 at 17:30 Aspirin (Ecotrin) 81 mg DAILYWBKFT PO ; Start 05/14/18 at 08:00; Status UNV Atorvastatin Calcium (Lipitor) 40 mg QHS PO ; Start 05/13/18 at 21:00; Stop at 21:00; Status DC Enoxaparin Sodium (Lovenox 40mg Syringe) 40 mg Q24H SQ ; Start 05/15/18 at 09:00 Info (CONTRAST GIVEN -- Rx MONITORING) 1 each PRN DAILY PRN MC SEE COMMENTS; Start 05/13/18 at 12:00; Stop 05/15/18 at 11:59 Insulin Glargine (Lantus) 14 units DAILY10 SQ Last administered on 05/14/18at 10 :26; Start 05/14/18 at 10:00; Stop 05/14/18 at 10:56; Status DC Insulin Glargine (Lantus) 20 units DAILY10 SQ ; Start 05/15/18 at 10:00 Insulin Human Lispro (HumaLOG) 5 units TIDWMEALS SQ ; Start 05/14/18 at 08:00 Insulin Human Lispro (HumaLOG) 17 units 1X ONCE SQ Last administered on at 08:28; Start 05/14/18 at 08:30; Stop 05/14/18 at 08:31; Status DC Insulin Human Lispro (HumaLOG) 26 units 1X ONCE SQ Last administered on at 11:09; Start 05/14/18 at 11:00; Stop 05/14/18 at 11:01; Status DC Iodixanol (Visipaque 320) 50 ml 1X ONCE IV Last administered on 05/13/18at 11: 40; Start 05/13/18 at 11:45; Stop 05/13/18 at 11:48; Status DC Magnesium Sulfate 50 ml @ 25 mls/hr 1X ONCE IV Last administered on 05/13/18at 13:22; Start 05/13/18 at 13:00; Stop 05/13/18 at 14:59; Status DC Magnesium Sulfate/ Dextrose 100 ml @ 25 mls/hr 1X ONCE IV ; Start 05/13/18 at 18:00; Stop 05/13/18 at 21:59; Status UNV Metformin HCl (Glucophage) 500 mg BIDWMEALS PO ; Start 05/15/18 at 17:00 Metoprolol Tartrate (Lopressor) 50 mg BID PO Last administered on 05/14/18at 08: 25; Start 05/13/18 at 21:00 Non-Formulary Medication (Budesonide/ Formoterol Fumarate (Symbicort 80-4.5 Mcg Inhaler)) 1 puff BID IH ; Start 05/13/18 at 21:00; Status UNV Non-Formulary Medication (Carisoprodol (Soma)) 1 tab BID PO ; Start 05/13/18 at 21:00; Status UNV Non-Formulary Medication (Omeprazole ) 1 cap DAILY PO ; Start 05/14/18 at 09:00 ; Status UNV Sodium Chloride 90 meq/Potassium Chloride 50 meq/ Potassium Phosphate 25 mmol/ Magnesium Sulfate 20 meq/Calcium Gluconate 10 meq/ Multivitamins 10 ml/Chromium / Copper/Manganese/ Seleni/Zn 1 ml/ Total Parenteral Nutrition/Amino Acids/ Dextrose/ Fat Emulsion Intravenous 1,512 ml @ 63 mls/hr TPN CONT IV Last administered on 05/13/18at 21:18; Start 05/13/18 at 22:00; Stop 05/14/18 at 21:59 Sodium Phosphate 20 mmol/Dextrose 256.6667 ml @ 64.167 m... 1X ONCE IV Last administered on 05/13/18at 13:23; Start 05/13/18 at 13:00; Stop 05/13/18 at 16:59 ; Status DC Ticagrelor (Brilinta) 90 mg BID PO ; Start 05/13/18 at 21:00; Status UNV Allergies Allergies: Coded Allergies: latex (Verified Allergy, Intermediate, rash/blisters, , 01/21/18) ROS Review Of Systems: CONSTITUTIONAL: No fever or chills EYES: No recent changes SKIN: No rash or itching CARDIOVASCULAR: No chest pain, syncope, palpitations, or edema RESPIRATORY: No SOB or cough GASTROINTESTINAL: No nausea, vomiting or abdominal pain NEUROLOGICAL: No headaches or weakness ENDOCRINE: No cold or heat intolerance GENITOURINARY: No urgency or frequency of urination MUSCULOSKELETAL: No back pain or joint pain LYMPHATICS: No enlarged lymph nodes PSYCHIATRIC: No anxiety or depression Physical Exam Physical Exam: General: Pleasant, no acute distress, well groomed Eyes: conjunctiva anicteric, eyes full range of motion ENT: moist oral mucosa, normal dentition Neck: Trachea midline, no masses Respiratory: unlabored breathing, not using accessory muscles, Abdomen: nontender, nondistended, + JEREMY drain in place draining yellow fluid Skin: no rashes or skin lesions on visualized skin Psych: normal mood, affect. Alert and oriented x 3. Vitals VITALS Vital Signs Date Time Temp Pulse Resp B/P (MAP) Pulse Ox O2 Delivery O2 Flow Rate FiO2 05/14/18 08:25 100 139/80 05/14/18 07:15 Room Air 05/14/18 07:00 98.4 18 96 98.4 05/13/18 21:39 2.0 Labs Labs Laboratory Tests Test 05/13/18 03:15 05/13/18 11:59 05/13/18 16:55 05/13/18 18:00 White Blood Count 10.1 x10^3/uL (4.0-11.0) Red Blood Count 4.11 x10^6/uL (4.30-5.70) Hemoglobin 11.7 g/dL (13.0-17.5) Hematocrit 35.6 % (39.0-53.0) Mean Corpuscular Volume 87 fL (79-100) Mean Corpuscular Hemoglobin 29 pg (25-35) Mean Corpuscular Hemoglobin Concent 33 g/dL (31-37) Red Cell Distribution Width 14.8 % (11.5-14.5) Platelet Count 308 x10^3/uL (140-400) Neutrophils (%) (Auto) 73 % (31-73) Lymphocytes (%) (Auto) 16 % (24-48) Monocytes (%) (Auto) 8 % (0-9) Eosinophils (%) (Auto) 3 % (0-3) Basophils (%) (Auto) 0 % (0-3) Neutrophils # (Auto) 7.4 x10^3uL (1.8-7.7) Lymphocytes # (Auto) 1.6 x10^3/uL (1.0-4.8) Monocytes # (Auto) 0.8 x10^3/uL (0.0-1.1) Eosinophils # (Auto) 0.3 x10^3/uL (0.0-0.7) Basophils # (Auto) 0.0 x10^3/uL (0.0-0.2) Segmented Neutrophils % 72 % (35-66) Band Neutrophils % 5 % (0-9) Lymphocytes % 13 % (24-48) Monocytes % 7 % (0-10) Eosinophils % 2 % (0-5) Myelocytes % 1 % (0-0) Platelet Estimate Adequate (ADEQUATE) Sodium Level 134 mmol/L (136-145) Potassium Level 4.1 mmol/L (3.5-5.1) Chloride Level 96 mmol/L (98-107) Carbon Dioxide Level 30 mmol/L (21-32) Anion Gap 8 (6-14) Blood Urea Nitrogen 10 mg/dL (8-26) Creatinine 0.8 mg/dL (0.7-1.3) Estimated GFR (Cockcroft-Gault) 92.8 BUN/Creatinine Ratio 13 (6-20) Glucose Level 288 mg/dL (70-99) Calcium Level 8.1 mg/dL (8.5-10.1) Phosphorus Level 2.1 mg/dL (2.6-4.7) Magnesium Level 1.4 mg/dL (1.8-2.4) Total Bilirubin 0.4 mg/dL (0.2-1.0) Aspartate Amino Transf (AST/SGOT) 111 U/L (15-37) Alanine Aminotransferase (ALT/SGPT) 253 U/L (16-63) Alkaline Phosphatase 303 U/L (46-116) Total Protein 6.0 g/dL (6.4-8.2) Albumin 1.9 g/dL (3.4-5.0) Albumin/Globulin Ratio 0.5 (1.0-1.7) Glucose (Fingerstick) 382 mg/dL (70-99) 220 mg/dL (70-99) 270 mg/dL (70-99) Test 05/14/18 05:45 05/14/18 08:00 05/14/18 10:52 Sodium Level 131 mmol/L (136-145) Potassium Level 4.6 mmol/L (3.5-5.1) Chloride Level 96 mmol/L (98-107) Carbon Dioxide Level 31 mmol/L (21-32) Anion Gap 4 (6-14) Blood Urea Nitrogen 12 mg/dL (8-26) Creatinine 0.8 mg/dL (0.7-1.3) Estimated GFR (Cockcroft-Gault) 92.8 Glucose Level 343 mg/dL (70-99) Calcium Level 8.1 mg/dL (8.5-10.1) Phosphorus Level 2.5 mg/dL (2.6-4.7) Magnesium Level 1.8 mg/dL (1.8-2.4) Glucose (Fingerstick) 357 mg/dL (70-99) 428 mg/dL (70-99) Laboratory Tests Test 05/13/18 11:59 05/13/18 16:55 05/13/18 18:00 05/14/18 05:45 Glucose (Fingerstick) 382 mg/dL (70-99) 220 mg/dL (70-99) 270 mg/dL (70-99) Sodium Level 131 mmol/L (136-145) Potassium Level 4.6 mmol/L (3.5-5.1) Chloride Level 96 mmol/L (98-107) Carbon Dioxide Level 31 mmol/L (21-32) Anion Gap 4 (6-14) Blood Urea Nitrogen 12 mg/dL (8-26) Creatinine 0.8 mg/dL (0.7-1.3) Estimated GFR (Cockcroft-Gault) 92.8 Glucose Level 343 mg/dL (70-99) Calcium Level 8.1 mg/dL (8.5-10.1) Phosphorus Level 2.5 mg/dL (2.6-4.7) Magnesium Level 1.8 mg/dL (1.8-2.4) Test 05/14/18 08:00 05/14/18 10:52 Glucose (Fingerstick) 357 mg/dL (70-99) 428 mg/dL (70-99) Assessment/Plan Assessment/Plan Discussed purpose of prophylactic stents with patient and family. 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 Surgery tomorrow is currently scheduled for 8 am. [facility] [place] staff know if this time will be a problem for Dr. Ramirez. MAEVE RAMIREZ MD 05/14/18 1415: UROLOGY CONSULT Assessment/Plan Assessment/Plan agree w above. cysto, bl stents tomorrow. LUKE GALVIN APRN May 14, 2018 11:31 MAEVE RAMIREZ MD May 14, 2018 14:15
[2018-05-14] MEDS: TPN PER PHARMACY MC PRN (12:52)
--- NOTE | 2018-05-14 12:53 | NUR ---
Pharmacy TPN Dosing Note S: EDITH SELBY is a 82 year old M Currently receiving Central Continuous TPN started 05/13/18 B:Pertinent PMH: ABDOMINAL ABSCESS/PERFORATION Height: 5 feet, 10 inches Weight: 62.459518 kg Current diet: NPO LABS: Sodium: 131 Potassium: 4.6 Chloride: 96 Calcium: 8.1 Corrected Calcium: 9.78 Magnesium: 1.8 CO2: 31 SCr: 0.8 Glucose: 260-428 Albumin: 1.9 AST: 111 ALT: 253 TPN FORMULA: TPN TYPE: Central Continuous AMINO ACIDS: 60 gm DEXTROSE: 195 gm LIPIDS: 20 gm SODIUM CHLORIDE: 120 mEq SODIUM ACETATE: mEq SODIUM PHOSPHATE: mmol POTASSIUM CHLORIDE: 20 mEq POTASSIUM ACETATE: mEq POTASSIUM PHOSPHATE: 30 mmol MAGNESIUM: 20 mEq CALCIUM: 10 mEq INSULIN: units MULTIPLE VITAMIN: 10 ml TRACE ELEMENTS: 1 ml(s) TPN PLAN: Gluocose elevated, lantus increased by primary today Potassium trending up, will cut KCl to 20 mEq Phos still low, will increase to 30mmol Kphos Calcium decreased to 5meq due to Ca-Phos precipitate Labs in the am R: Continue TPN as written above. Will monitor electrolytes, glucose, and tolerance to TPN. JOSE BOJORQUEZ [facility], 05/14/18 [id number]
--- NOTE | 2018-05-14 14:23 | NUR ---
Message left for COREY Pike on cardiology line to see if pt still needed telemetry.
[2018-05-14 15:00] VITALS: BP 130/73
--- NOTE | 2018-05-14 16:00 | PDOC ---
PROGRESS NOTES Chief Complaint Chief Complaint acute abdominal pain sepsis abdominal abcess, status post percutaneous drainage, currently on IV abx, surg consult, IR placed drain on 05/11/18 Severe malnutrition History of Present Illness History of Present Illness start TPN cont current home medsd, increase insulin Patient seems to be better compared to yesterday, no fever or chill Vitals Vitals Vital Signs Date Time Temp Pulse Resp B/P (MAP) Pulse Ox O2 Delivery O2 Flow Rate FiO2 05/14/18 11:00 98.1 82 18 128/68 (88) 95 Room Air 98.1 05/13/18 21:39 2.0 Physical Exam Physical Exam GENERAL: Propped up in bed, alert, NAD HEENT: Pupils equal and reactive. Oral cavity, pharynx has some mild thrush - better. dentures NECK: Supple, no JVD. LUNGS: Clear to auscultation, HEART: S1, S2. ABDOMEN: Nondistended, soft. BS present mild tenderness. JEREMY LLQ with purulent material EXTREMITIES: No clubbing, cyanosis or gross edema. SKIN: Warm to touch without signs of rash. NEUROLOGIC: Alert, nonfocal and appropriate. IV General: Alert, Oriented X3, Cooperative, No acute distress Lungs: Clear, Wheezing Abdomen: Soft, Other (drain purulent) Extremities: No clubbing, No cyanosis, Normal pulses Skin: No rashes, No breakdown, No significant lesion Labs LABS Laboratory Tests Test 05/13/18 16:55 05/13/18 18:00 05/14/18 05:45 05/14/18 08:00 Glucose (Fingerstick) 220 mg/dL (70-99) 270 mg/dL (70-99) 357 mg/dL (70-99) Sodium Level 131 mmol/L (136-145) Potassium Level 4.6 mmol/L (3.5-5.1) Chloride Level 96 mmol/L (98-107) Carbon Dioxide Level 31 mmol/L (21-32) Anion Gap 4 (6-14) Blood Urea Nitrogen 12 mg/dL (8-26) Creatinine 0.8 mg/dL (0.7-1.3) Estimated GFR (Cockcroft-Gault) 92.8 Glucose Level 343 mg/dL (70-99) Calcium Level 8.1 mg/dL (8.5-10.1) Phosphorus Level 2.5 mg/dL (2.6-4.7) Magnesium Level 1.8 mg/dL (1.8-2.4) Test 05/14/18 10:52 05/14/18 11:55 Glucose (Fingerstick) 428 mg/dL (70-99) 260 mg/dL (70-99) Comment Review of Relevant I have reviewed the following items mkuesh (where applicable) has been applied. Labs Laboratory Tests Test 05/13/18 03:15 05/13/18 11:59 05/13/18 16:55 05/13/18 18:00 White Blood Count 10.1 x10^3/uL (4.0-11.0) Red Blood Count 4.11 x10^6/uL (4.30-5.70) Hemoglobin 11.7 g/dL (13.0-17.5) Hematocrit 35.6 % (39.0-53.0) Mean Corpuscular Volume 87 fL (79-100) Mean Corpuscular Hemoglobin 29 pg (25-35) Mean Corpuscular Hemoglobin Concent 33 g/dL (31-37) Red Cell Distribution Width 14.8 % (11.5-14.5) Platelet Count 308 x10^3/uL (140-400) Neutrophils (%) (Auto) 73 % (31-73) Lymphocytes (%) (Auto) 16 % (24-48) Monocytes (%) (Auto) 8 % (0-9) Eosinophils (%) (Auto) 3 % (0-3) Basophils (%) (Auto) 0 % (0-3) Neutrophils # (Auto) 7.4 x10^3uL (1.8-7.7) Lymphocytes # (Auto) 1.6 x10^3/uL (1.0-4.8) Monocytes # (Auto) 0.8 x10^3/uL (0.0-1.1) Eosinophils # (Auto) 0.3 x10^3/uL (0.0-0.7) Basophils # (Auto) 0.0 x10^3/uL (0.0-0.2) Segmented Neutrophils % 72 % (35-66) Band Neutrophils % 5 % (0-9) Lymphocytes % 13 % (24-48) Monocytes % 7 % (0-10) Eosinophils % 2 % (0-5) Myelocytes % 1 % (0-0) Platelet Estimate Adequate (ADEQUATE) Sodium Level 134 mmol/L (136-145) Potassium Level 4.1 mmol/L (3.5-5.1) Chloride Level 96 mmol/L (98-107) Carbon Dioxide Level 30 mmol/L (21-32) Anion Gap 8 (6-14) Blood Urea Nitrogen 10 mg/dL (8-26) Creatinine 0.8 mg/dL (0.7-1.3) Estimated GFR (Cockcroft-Gault) 92.8 BUN/Creatinine Ratio 13 (6-20) Glucose Level 288 mg/dL (70-99) Calcium Level 8.1 mg/dL (8.5-10.1) Phosphorus Level 2.1 mg/dL (2.6-4.7) Magnesium Level 1.4 mg/dL (1.8-2.4) Total Bilirubin 0.4 mg/dL (0.2-1.0) Aspartate Amino Transf (AST/SGOT) 111 U/L (15-37) Alanine Aminotransferase (ALT/SGPT) 253 U/L (16-63) Alkaline Phosphatase 303 U/L (46-116) Total Protein 6.0 g/dL (6.4-8.2) Albumin 1.9 g/dL (3.4-5.0) Albumin/Globulin Ratio 0.5 (1.0-1.7) Glucose (Fingerstick) 382 mg/dL (70-99) 220 mg/dL (70-99) 270 mg/dL (70-99) Test 05/14/18 05:45 05/14/18 08:00 05/14/18 10:52 05/14/18 11:55 Sodium Level 131 mmol/L (136-145) Potassium Level 4.6 mmol/L (3.5-5.1) Chloride Level 96 mmol/L (98-107) Carbon Dioxide Level 31 mmol/L (21-32) Anion Gap 4 (6-14) Blood Urea Nitrogen 12 mg/dL (8-26) Creatinine 0.8 mg/dL (0.7-1.3) Estimated GFR (Cockcroft-Gault) 92.8 Glucose Level 343 mg/dL (70-99) Calcium Level 8.1 mg/dL (8.5-10.1) Phosphorus Level 2.5 mg/dL (2.6-4.7) Magnesium Level 1.8 mg/dL (1.8-2.4) Glucose (Fingerstick) 357 mg/dL (70-99) 428 mg/dL (70-99) 260 mg/dL (70-99) Laboratory Tests Test 05/13/18 16:55 05/13/18 18:00 05/14/18 05:45 05/14/18 08:00 Glucose (Fingerstick) 220 mg/dL (70-99) 270 mg/dL (70-99) 357 mg/dL (70-99) Sodium Level 131 mmol/L (136-145) Potassium Level 4.6 mmol/L (3.5-5.1) Chloride Level 96 mmol/L (98-107) Carbon Dioxide Level 31 mmol/L (21-32) Anion Gap 4 (6-14) Blood Urea Nitrogen 12 mg/dL (8-26) Creatinine 0.8 mg/dL (0.7-1.3) Estimated GFR (Cockcroft-Gault) 92.8 Glucose Level 343 mg/dL (70-99) Calcium Level 8.1 mg/dL (8.5-10.1) Phosphorus Level 2.5 mg/dL (2.6-4.7) Magnesium Level 1.8 mg/dL (1.8-2.4) Test 05/14/18 10:52 05/14/18 11:55 Glucose (Fingerstick) 428 mg/dL (70-99) 260 mg/dL (70-99) Microbiology 05/10/18 Blood Culture - Preliminary, Resulted NO GROWTH AFTER 3 DAYS 05/11/18 Anaerobic/Aerobic Culture, Resulted Pending 05/11/18 Anaerobic Culture Result 1 (AMBROCIO), Resulted Pending 05/11/18 Aerobic Culture - Preliminary, Resulted 05/11/18 Aerobic Culture Result 1 (AMBROCIO) - Preliminary, Resulted 05/11/18 Gram Stain - Final, Resulted 05/11/18 Gram Stain Result 1 (AMBROCIO) - Final, Resulted 05/11/18 Gram Stain Result 2 (AMBROCIO) - Final, Resulted 05/11/18 Gram Stain Result 3 (AMBROCIO) - Final, Resulted 05/11/18 Gram Stain Result 4 (AMBROCIO) - Final, Resulted Medications Current Medications Hyoscyamine (Anaspaz) 0.125 mg ONCE ONCE PO Last administered on 05/10/18 12: 07; Start 05/10/18 at 11:30; Stop 05/10/18 at 11:32; Status DC Ondansetron HCl (Zofran) 4 mg 1X ONCE IV Last administered on 05/10/18 12:09 ; Start 05/10/18 at 11:30; Stop 05/10/18 at 11:32; Status DC Sodium Chloride 500 ml @ 500 mls/hr 1X ONCE IV Last administered on at 12:04; Start 05/10/18 at 11:30; Stop 05/10/18 at 12:29; Status DC Iohexol (Omnipaque 240 Mg/ml) 30 ml 1X ONCE PO Last administered on 05/10/18 12:00; Start 05/10/18 at 12:00; Stop 05/10/18 at 12:01; Status DC Iohexol (Omnipaque 300 Mg/ml) 75 ml 1X ONCE IV Last administered on 05/10/18 13:08; Start 05/10/18 at 12:00; Stop 05/10/18 at 12:01; Status DC Info (CONTRAST GIVEN -- Rx MONITORING) 1 each PRN DAILY PRN MC SEE COMMENTS; Start 05/10/18 at 12:00; Stop 05/12/18 at 11:59; Status DC Ciprofloxacin/ Dextrose 200 ml @ 200 mls/hr 1X ONCE IV Last administered on at 15:58; Start 05/10/18 at 14:30; Stop 05/10/18 at 15:29; Status DC Metronidazole 100 ml @ 100 mls/hr 1X ONCE IV Last administered on 05/10/18at 15:57; Start 05/10/18 at 14:30; Stop 05/10/18 at 15:29; Status DC Ondansetron HCl (Zofran) 4 mg PRN Q8HRS PRN IV NAUSEA/VOMITING; Start 05/10/18 at 14:45; Stop 05/11/18 at 14:44; Status DC Morphine Sulfate (Morphine Sulfate) 2 mg PRN Q2HR PRN IV PAIN Last administered on 05/10/18at 16:29; Start 05/10/18 at 14:45; Stop 05/10/18 at 17:27 ; Status DC Sodium Chloride 1,000 ml @ 125 mls/hr Q8H IV Last administered on 05/11/18at 08 :26; Start 05/10/18 at 15:00; Stop 05/11/18 at 14:59; Status DC Acetaminophen (Tylenol) 650 mg PRN Q4HRS PRN PO FEVER; Start 05/10/18 at 14:45 ; Stop 05/11/18 at 14:44; Status DC Ciprofloxacin/ Dextrose 200 ml @ 200 mls/hr Q12HR IV ; Start 05/11/18 at 09:00 ; Stop 05/11/18 at 09:00; Status DC Metronidazole 100 ml @ 100 mls/hr Q12HR IV ; Start 05/10/18 at 21:00; Stop at 21:00; Status DC Morphine Sulfate (Morphine Sulfate) 4 mg PRN Q2HR PRN IV PAIN Last administered on 05/13/18at 21:39; Start 05/10/18 at 17:30 Fentanyl Citrate (Fentanyl 2ml Vial) 50 mcg 1X ONCE IV Last administered on at 17:32; Start 05/10/18 at 17:30; Stop 05/10/18 at 17:31; Status DC Ketorolac Tromethamine (Toradol 15mg Vial) 15 mg 1X ONCE IV Last administered on 05/10/18at 17:36; Start 05/10/18 at 17:30; Stop 05/10/18 at 17:31; Status DC Enoxaparin Sodium (Lovenox Per Pharmacy Prophylaxis Dosing) 1 each PRN DAILY PRN MC SEE COMMENTS; Start 05/10/18 at 17:45; Status Cancel Metronidazole 100 ml @ 100 mls/hr Q12HR IV ; Start 05/11/18 at 09:00; Stop at 09:00; Status DC Enoxaparin Sodium (Lovenox 40mg Syringe) 40 mg QHS SQ Last administered on 05/10at 21:33; Start 05/10/18 at 21:00; Stop 05/10/18 at 21:37; Status DC Zolpidem Tartrate (Ambien) 5 mg PRN QHS PRN PO INSOMNIA Last administered on at 23:32; Start 05/10/18 at 23:15 Meropenem 500 mg/ Sodium Chloride 50 ml @ 100 mls/hr Q6HRS IV Last administered on 05/14/18at 12:25; Start 05/11/18 at 06:30 Linezolid/Dextrose 300 ml @ 300 mls/hr Q12HR IV Last administered on at 10:17; Start 05/11/18 at 09:00 Micafungin Sodium 100 mg/Dextrose 100 ml @ 100 mls/hr Q24H IV Last administered on 05/14/18at 08:27; Start 05/11/18 at 08:00 Clotrimazole (Mycelex) 10 mg 5XDAY MM Last administered on 05/14/18at 10:22; Start 05/11/18 at 08:00 Lidocaine/Sodium Bicarbonate (Buffered Lidocaine 1%) 3 ml STK-MED ONCE .ROUTE ; Start 05/11/18 at 13:28; Stop 05/11/18 at 13:29; Status DC Insulin Human Lispro (HumaLOG) 0-5 UNITS TIDWMEALS SQ Last administered on 05/11at 17:00; Start 05/11/18 at 17:00; Stop 05/11/18 at 21:35; Status DC Dextrose (Dextrose 50%-Water Syringe) 12.5 gm PRN Q15MIN PRN IV SEE COMMENTS; Start 05/11/18 at 14:15 Midazolam HCl (Versed) 2 mg STK-MED ONCE .ROUTE ; Start 05/11/18 at 14:19; Stop 05/11/18 at 14:20; Status DC Fentanyl Citrate (Fentanyl 2ml Vial) 100 mcg STK-MED ONCE .ROUTE ; Start at 14:19; Stop 05/11/18 at 14:20; Status DC Lidocaine/Sodium Bicarbonate (Buffered Lidocaine 1%) 6 ml 1X ONCE IJ Last administered on 05/11/18at 14:36; Start 05/11/18 at 14:45; Stop 05/11/18 at 14:46 ; Status DC Midazolam HCl (Versed) 1 mg 1X ONCE IV Last administered on 05/11/18at 14:37; Start 05/11/18 at 14:45; Stop 05/11/18 at 14:46; Status DC Fentanyl Citrate (Fentanyl 2ml Vial) 50 mcg 1X ONCE IV Last administered on at 14:37; Start 05/11/18 at 14:45; Stop 05/11/18 at 14:46; Status DC Enoxaparin Sodium (Lovenox Per Pharmacy Prophylaxis Dosing) 1 each PRN DAILY PRN MC SEE COMMENTS; Start 05/12/18 at 09:00 Enoxaparin Sodium (Lovenox 40mg Syringe) 40 mg Q24H SQ Last administered on at 21:19; Start 05/11/18 at 21:00; Stop 05/13/18 at 22:00; Status DC Oxycodone/ Acetaminophen (Percocet 5/325) 1 tab PRN Q4HRS PRN PO PAIN Last administered on 05/11/18at 21:12; Start 05/11/18 at 16:30 Insulin Human Lispro (HumaLOG) 0-5 UNITS QIDACHS SQ Last administered on at 22:01; Start 05/11/18 at 21:40; Stop 05/12/18 at 07:35; Status DC Ondansetron HCl (Zofran) 4 mg PRN Q6HRS PRN IV NAUSEA/VOMITING 1ST CHOICE Last administered on 05/13/18at 06:34; Start 05/12/18 at 06:15 Insulin Human Lispro (HumaLOG) 0-7 UNITS QIDACHS SQ Last administered on at 21:22; Start 05/12/18 at 08:00 Lactobacillus Rhamnosus (Culturelle) 1 cap BID PO Last administered on at 08:24; Start 05/12/18 at 21:00 Info (Tpn Per Pharmacy) 1 each PRN DAILY PRN MC SEE COMMENTS Last administered on 05/14/18at 12:52; Start 05/12/18 at 15:30 Pantoprazole Sodium (PROTONIX VIAL for IV PUSH) 40 mg DAILYAC IVP Last administered on 05/14/18 05:59; Start 05/13/18 at 07:30 Amlodipine Besylate (Norvasc) 5 mg DAILY PO Last administered on 05/14/18at 08: 24; Start 05/13/18 at 09:00 Carvedilol (Coreg) 12.5 mg BIDWMEALS PO Last administered on 05/13/18at 08:19; Start 05/13/18 at 08:15; Stop 05/13/18 at 16:24; Status DC Aspirin (Ecotrin) 81 mg DAILYWBKFT PO ; Start 05/14/18 at 08:00; Status UNV Atorvastatin Calcium (Lipitor) 40 mg QHS PO ; Start 05/13/18 at 21:00; Stop at 21:00; Status DC Vitamin D (Vitamin D3) 2,000 unit DAILY PO Last administered on 05/14/18at 08:23 ; Start 05/13/18 at 10:00 Insulin Glargine (Lantus) 12 units DAILY10 SQ Last administered on 05/13/18at 12 :09; Start 05/13/18 at 10:00; Stop 05/13/18 at 21:39; Status DC Lactobacillus Rhamnosus (Culturelle) 1 cap BID PO ; Start 05/13/18 at 10:00; Status Cancel Saliva Substitute (Biotene Moisturizing Mouth) 2 spray PRN Q15MIN PRN PO DRY MOUTH; Start 05/13/18 at 09:15 Ticagrelor (Brilinta) 90 mg BID PO ; Start 05/13/18 at 21:00; Status UNV Non-Formulary Medication (Budesonide/ Formoterol Fumarate (Symbicort 80-4.5 Mcg Inhaler)) 1 puff BID IH ; Start 05/13/18 at 21:00; Status UNV Non-Formulary Medication (Carisoprodol (Soma)) 1 tab BID PO ; Start 05/13/18 at 21:00; Status UNV Glimepiride (Amaryl) 4 mg DAILY PO Last administered on 05/14/18at 08:23; Start 05/13/18 at 10:00 Magnesium Oxide (Magnesium Oxide) 200 mg DAILY PO Last administered on at 08:24; Start 05/13/18 at 10:00 Metformin HCl (Glucophage) 500 mg BIDWMEALS PO ; Start 05/13/18 at 10:00; Stop 05/13/18 at 11:49; Status DC Non-Formulary Medication (Omeprazole ) 1 cap DAILY PO ; Start 05/14/18 at 09:00 ; Status UNV Insulin Human Lispro (HumaLOG) 8 units 1X ONCE SQ Last administered on at 12:08; Start 05/13/18 at 10:00; Stop 05/13/18 at 10:02; Status DC Info (Tpn Per Pharmacy) 1 each PRN DAILY PRN MC SEE COMMENTS; Start 05/13/18 at 09:30; Status Cancel Albuterol Sulfate (Ventolin Neb Soln) 2.5 mg Q6HRS NEB Last administered on at 13:02; Start 05/13/18 at 12:00; Stop 05/13/18 at 13:49; Status DC Budesonide (Pulmicort) 0.5 mg RTBID NEB ; Start 05/13/18 at 10:00 Lidocaine/Sodium Bicarbonate (Buffered Lidocaine 1%) 3 ml STK-MED ONCE .ROUTE ; Start 05/13/18 at 10:56; Stop 05/13/18 at 10:57; Status DC Lidocaine/Sodium Bicarbonate (Buffered Lidocaine 1%) 3 ml 1X ONCE INJ Last administered on 05/13/18at 11:18; Start 05/13/18 at 11:15; Stop 05/13/18 at 11:31 ; Status DC Iodixanol (Visipaque 320) 50 ml STK-MED ONCE .ROUTE ; Start 05/13/18 at 11:20; Stop 05/13/18 at 11:21; Status DC Iodixanol (Visipaque 320) 50 ml STK-MED ONCE .ROUTE ; Start 05/13/18 at 11:21; Stop 05/13/18 at 11:22; Status DC Iodixanol (Visipaque 320) 50 ml 1X ONCE IV Last administered on 05/13/18at 11: 40; Start 05/13/18 at 11:45; Stop 05/13/18 at 11:48; Status DC Info (CONTRAST GIVEN -- Rx MONITORING) 1 each PRN DAILY PRN MC SEE COMMENTS; Start 05/13/18 at 12:00; Stop 05/15/18 at 11:59 Metformin HCl (Glucophage) 500 mg BIDWMEALS PO ; Start 05/15/18 at 17:00 Magnesium Sulfate 50 ml @ 25 mls/hr 1X ONCE IV Last administered on 05/13/18at 13:22; Start 05/13/18 at 13:00; Stop 05/13/18 at 14:59; Status DC Sodium Phosphate 20 mmol/Dextrose 256.6667 ml @ 64.167 m... 1X ONCE IV Last administered on 05/13/18at 13:23; Start 05/13/18 at 13:00; Stop 05/13/18 at 16:59 ; Status DC Sodium Chloride 90 meq/Potassium Chloride 50 meq/ Potassium Phosphate 25 mmol/ Magnesium Sulfate 20 meq/Calcium Gluconate 10 meq/ Multivitamins 10 ml/Chromium / Copper/Manganese/ Seleni/Zn 1 ml/ Total Parenteral Nutrition/Amino Acids/ Dextrose/ Fat Emulsion Intravenous 1,512 ml @ 63 mls/hr TPN CONT IV Last administered on 05/13/18at 21:18; Start 05/13/18 at 22:00; Stop 05/14/18 at 21:59 Enoxaparin Sodium (Lovenox 40mg Syringe) 40 mg Q24H SQ ; Start 05/15/18 at 09:00 Albuterol Sulfate (Ventolin Neb Soln) 2.5 mg PRN Q6HRS PRN NEB SHORTNESS OF BREATH; Start 05/13/18 at 14:00 Aspirin (Ecotrin) 81 mg DAILYWBKFT PO Last administered on 05/14/18at 08:26; Start 05/13/18 at 17:30 Metoprolol Tartrate (Lopressor) 50 mg BID PO Last administered on 05/14/18at 08: 25; Start 05/13/18 at 21:00 Magnesium Sulfate/ Dextrose 100 ml @ 25 mls/hr 1X ONCE IV ; Start 05/13/18 at 18:00; Stop 05/13/18 at 21:59; Status UNV Insulin Glargine (Lantus) 14 units DAILY10 SQ Last administered on 05/14/18at 10 :26; Start 05/14/18 at 10:00; Stop 05/14/18 at 10:56; Status DC Insulin Human Lispro (HumaLOG) 5 units TIDWMEALS SQ ; Start 05/14/18 at 08:00 Insulin Human Lispro (HumaLOG) 17 units 1X ONCE SQ Last administered on at 08:28; Start 05/14/18 at 08:30; Stop 05/14/18 at 08:31; Status DC Insulin Human Lispro (HumaLOG) 26 units 1X ONCE SQ Last administered on at 11:09; Start 05/14/18 at 11:00; Stop 05/14/18 at 11:01; Status DC Insulin Glargine (Lantus) 20 units DAILY10 SQ ; Start 05/15/18 at 10:00 Insulin Human Lispro (HumaLOG) 9 units 1X ONCE SQ Last administered on at 12:29; Start 05/14/18 at 12:15; Stop 05/14/18 at 12:16; Status DC Sodium Chloride 120 meq/Potassium Chloride 20 meq/ Potassium Phosphate 30 mmol/ Magnesium Sulfate 20 meq/Calcium Gluconate 5 meq/ Multivitamins 10 ml/Chromium/ Copper/Manganese/ Seleni/Zn 1 ml/ Total Parenteral Nutrition/Amino Acids/ Dextrose/ Fat Emulsion Intravenous 1,512 ml @ 63 mls/hr TPN CONT IV ; Start at 22:00; Stop 05/15/18 at 21:59 Morphine Sulfate (Morphine Sulfate) 1 mg PRN Q10MIN PRN IV SEVERE PAIN; Start 05/15/18 at 07:00; Stop 05/16/18 at 06:59 Ringer's Solution 1,000 ml @ 30 mls/hr Q24H IV ; Start 05/15/18 at 07:00; Stop 05/15/18 at 18:59 Lidocaine HCl (Xylocaine-Mpf 1% 2ml Vial) 2 ml PRN 1X PRN ID IV START; Start at 07:00; Stop 05/16/18 at 06:59 Hydromorphone HCl (Dilaudid) 0.5 mg PRN Q10MIN PRN IV SEV PAIN, Second choice; Start 05/15/18 at 07:00; Stop 05/16/18 at 06:59 Prochlorperazine Edisylate (Compazine) 5 mg PACU PRN PRN IV NAUSEA, MRX1; Start 05/15/18 at 07:00; Stop 05/16/18 at 06:59 Active Scripts Active Cipro (Ciprofloxacin Hcl) 500 Mg Tablet 1 Tab PO BID 14 Days Biotene Moisturizing Mouth (Saliva Stimulant Agents Comb.3) 44.3 Ml Madill 2 Madill PO PRN Q15MIN PRN 30 Days Lantus Solostar (Insulin Glargine,Hum.rec.anlog) 100 Unit/1 Ml Insuln.pen 12 Units SQ DAILY10 30 Days Culturelle (Lactobacillus Rhamnosus Gg) 1 Each Cap.sprink 1 Cap PO BID 28 Days Lipitor (Atorvastatin Calcium) 40 Mg Tablet 1 Tab PO QHS Aspirin Ec (Aspirin) 81 Mg Tablet. 81 Mg PO DAILYWBKFT Brilinta (Ticagrelor) 90 Mg Tablet 90 Mg PO BID Reported Metformin Hcl 500 Mg Tablet 500 Mg PO BIDWMEALS Soma (Carisoprodol) 350 Mg Tablet 1 Tab PO BID Omeprazole 40 Mg Capsule. 1 Cap PO DAILY Symbicort 80-4.5 Mcg Inhaler (Budesonide/Formoterol Fumarate) 10.2 Gm Hfa.aer.ad 1 Puff IH BID Amaryl (Glimepiride) 4 Mg Tablet 1 Tab PO DAILY Amlodipine Besylate 5 Mg Tablet 5 Mg PO DAILY Carvedilol (Carvedilol) 12.5 Mg Tablet 1 Tab PO BID Colestipol Hcl 1 Gm Tablet 2 Gm PO 1X Magnesium Oxide 400 Mg Tablet 250 Tab PO DAILY Vitamin D3 (Cholecalciferol (Vitamin D3)) 1,000 Unit Tablet 2,000 Tab PO DAILY Vitals/I & O Vital Sign - Last 24 Hours 05/13/18 05/13/18 05/13/18 05/13/18 19:00 20:00 21:19 21:39 Temp 97.9 97.9 Pulse 100 100 Resp 16 B/P (MAP) 112/70 (84) 112/70 Pulse Ox 92 92 O2 Delivery Room Air Room Air Room Air O2 Flow Rate 2.0 05/13/18 05/13/18 05/14/18 05/14/18 22:09 23:00 02:48 07:00 Temp 98.7 98.5 98.4 98.7 98.5 98.4 Pulse 102 88 100 Resp 18 18 18 B/P (MAP) 128/72 (90) 129/88 (102) 139/80 (99) Pulse Ox 92 95 94 96 O2 Delivery Room Air Room Air Room Air Room Air 05/14/18 05/14/18 05/14/18 05/14/18 07:15 08:24 08:25 11:00 Temp 98.1 98.1 Pulse 100 100 82 Resp 18 B/P (MAP) 139/80 139/80 128/68 (88) Pulse Ox 95 O2 Delivery Room Air Room Air Intake and Output 05/13/18 05/13/18 05/14/18 14:59 22:59 06:59 Intake Total 645 ml 250 ml Output Total 40 ml 20 ml Balance 645 ml 210 ml -20 ml Nutrition Consultation Dietary Evaluation: Recommendations by RD: PPN/TPN Comments: Recommend continue current TPN order Diet advancement per GI to regular as tollerated post surgery Expected Outcomes/Goals: TPN to meet >75% estimated nutrition needs Advancement to Regular diet post surgery as tollerated Interpretation of weight loss: >7.5% in 3 months Malnutrition Findings: Body Fat Depletion (Non Severe: Mild Depletion Weight Status: Appropriate ANITA ALVARADO MD May 14, 2018 16:00
[2018-05-14 19:00] VITALS: BP 134/79
[2018-05-14] MEDS ORDERED: AMINO ACID IV SCH ×10 (22:00)
[2018-05-14] MEDS ORDERED: DEXTROSE 70% IV SCH ×10 (22:00)
[2018-05-14] MEDS ORDERED: [UNRECOGNIZED DRUG - OTHER] IV SCH ×10 (22:00)
[2018-05-14] MEDS ORDERED: TOTAL PARENTERAL NUTRITION IV SCH ×10 (22:00)
[2018-05-14] MEDS: MORPHINE SULFATE 4 MG/ML VIAL. IV PRN (22:04)
[2018-05-14 23:00] VITALS: BP 127/77
[2018-05-15] VITALS (11 sets, daily range): BP systolic 98–137; BP diastolic 57–87
[2018-05-15] MEDS: CLOTRIMAZOLE 10 MG TROCHE. MM SCH ×5 (05:41→22:00)
[2018-05-15] MEDS: MEROPENEM 500 MG in IV NORMAL SALINE 50ML 50 ML IV SCH ×3 (05:41→18:09)
[2018-05-15] MEDS: PANTOPRAZOLE IV PUSH 40 MG VIAL. IVP SCH (05:47)
[2018-05-15] MEDS ORDERED: LIDOCAINE 1% PF 2 ML VIAL. ID PRN (07:00)
[2018-05-15] MEDS ORDERED: MORPHINE SULFATE 4 MG/ML VIAL. IV PRN (07:00)
[2018-05-15] MEDS ORDERED: PROCHLORPERAZINE 10 MG/2 ML VIAL. IV PRN (07:00)
[2018-05-15] MEDS ORDERED: IV RINGERS,LACTATED 1000ML 1,000 ML IV SCH (07:00)
[2018-05-15] MEDS ORDERED: HYDROmorphone 2 MG/ML VIAL IV PRN (07:00)
[2018-05-15] MEDS ORDERED: BUPIVAC MPF-EPI 0.5%-1:200000 30 ML VIAL. ONE (07:04)
--- NOTE | 2018-05-15 07:15 | NUR ---
Pt transported via bed to the OR holding area
[2018-05-15] MEDS ORDERED: fentaNYL PF VIAL 250 MCG/5 ML VIAL ONE (07:21)
[2018-05-15] MEDS ORDERED: ROCURONIUM 50 MG/5 ML VIAL. ONE ×2 (07:21→09:13)
[2018-05-15] MEDS: MICAFUNGIN 100 MG in IV DEXTROSE 5% 100ML 100 ML IV SCH (07:26)
[2018-05-15] MEDS ORDERED: LIDOCAINE 2% PF 5 ML VIAL. ONE (07:26)
[2018-05-15] MEDS ORDERED: ONDANSETRON PF 4 MG/2 ML VIAL. ONE (07:26)
[2018-05-15] MEDS ORDERED: PROPOFOL 20 ML IV ONE (07:26)
[2018-05-15] MEDS ORDERED: DEXAMETHASONE SOD PHOS 20 MG/5 ML VIAL. ONE (07:26)
[2018-05-15] MEDS: INSULIN LISPRO 300 UNITS/3 ML INSULN.PEN. SQ SCH ×7 (07:33→21:00)
[2018-05-15] MEDS: BUDESONIDE 0.5 MG/2 ML NEBU. NEB SCH ×2 (08:00→21:48)
--- NOTE | 2018-05-15 08:25 | PDOC ---
SURGICAL PROGRESS NOTE Subjective Pre-Op Note 82 yo M with recurrent intraabd abscess, s/p repeat drainage, felt to be secondary to diverticulitis. Pt feels stronger and with less pain. Given recurrent nature of abscess, surgery indicated. Plavix has been held TO OR for laparoscopic versus open exploration, sigmoid resection, protecting loop ileostomy. R/R/B/A d/w pt and pt's supportive . Risks, including, but not limited to: bleeding, infection, damage to surrounding structures, risk of anesthesia. They appear to understand, their questions are answered and they elect to proceed. Vital Signs Vital Signs Date Time Temp Pulse Resp B/P (MAP) Pulse Ox O2 Delivery O2 Flow Rate FiO2 05/15/18 07:10 97.9 102 18 137/80 (99) 98 Room Air 97.9 I&O Intake and Output 05/15/18 07:00 Intake Total 180 ml Output Total 30 ml Balance 150 ml Intake Oral 180 ml Output Drainage Total 30 ml # Voids 5 # Bowel Movements 2 Labs Laboratory Tests Test 05/13/18 11:59 05/13/18 16:55 05/13/18 18:00 05/14/18 05:45 Glucose (Fingerstick) 382 mg/dL (70-99) 220 mg/dL (70-99) 270 mg/dL (70-99) Sodium Level 131 mmol/L (136-145) Potassium Level 4.6 mmol/L (3.5-5.1) Chloride Level 96 mmol/L (98-107) Carbon Dioxide Level 31 mmol/L (21-32) Anion Gap 4 (6-14) Blood Urea Nitrogen 12 mg/dL (8-26) Creatinine 0.8 mg/dL (0.7-1.3) Estimated GFR (Cockcroft-Gault) 92.8 Glucose Level 343 mg/dL (70-99) Calcium Level 8.1 mg/dL (8.5-10.1) Phosphorus Level 2.5 mg/dL (2.6-4.7) Magnesium Level 1.8 mg/dL (1.8-2.4) Test 05/14/18 08:00 05/14/18 10:52 05/14/18 11:55 05/14/18 16:58 Glucose (Fingerstick) 357 mg/dL (70-99) 428 mg/dL (70-99) 260 mg/dL (70-99) 137 mg/dL (70-99) Test 05/14/18 20:34 05/15/18 07:12 Glucose (Fingerstick) 208 mg/dL (70-99) 322 mg/dL (70-99) Laboratory Tests Test 05/14/18 10:52 05/14/18 11:55 05/14/18 16:58 05/14/18 20:34 Glucose (Fingerstick) 428 mg/dL (70-99) 260 mg/dL (70-99) 137 mg/dL (70-99) 208 mg/dL (70-99) Test 05/15/18 07:12 Glucose (Fingerstick) 322 mg/dL (70-99) LUIZA JOHNSON MD May 15, 2018 08:25
[2018-05-15] MEDS: LACTOBACILLUS RHAMNOSUS GG 1 CAPSULE. PO SCH ×2 (09:00→21:25)
[2018-05-15] MEDS: CARISOPRODOL PO SCH ×2 (09:00→21:00)
[2018-05-15] MEDS ORDERED: ENOXAPARIN 40 MG/0.4 ML SYRINGE. SQ SCH (09:00)
--- NOTE | 2018-05-15 09:03 | PDOC4 ---
OPERATIVE NOTE Date: Date: May 15, 2018 Pre-Op Diagnosis: abd abscess Post-Op Diagnosis: same Procedure Performed: cysto, bl stents Surgeon: Anesthesia Type: ga Blood Loss: 0ml Specimans Obtained: none Findings: meatal stenosis, dilated. nl [facility]. Complications: none MAEVE NUÑEZ MD May 15, 2018 09:03
[2018-05-15] MEDS ORDERED: NEOSTIGMINE 10 MG/10 ML VIAL. ONE (09:41)
[2018-05-15] MEDS ORDERED: GLYCOPYRROLATE 1 MG/5 ML VIAL. ONE (09:41)
[2018-05-15] MEDS ORDERED: SEVOFLURANE > 120 MINUTES. IH ONE (09:42)
[2018-05-15] MEDS ORDERED: INSULIN GLARGINE 300 UNITS/3 ML INSULN.PEN. SQ SCH (10:00)
[2018-05-15] MEDS ORDERED: LABETALOL 20 MG/4 ML DISP.SYRIN. IVP ONE (10:30)
--- NOTE | 2018-05-15 11:04 | OP ---
DATE OF SURGERY: PREOPERATIVE DIAGNOSIS: Abdominal abscess, diverticulitis. POSTOPERATIVE DIAGNOSIS: Abdominal abscess, diverticulitis. PROCEDURE: Cystoscopy with bilateral stent placement. SURGEON: Merissa Ramirez MD. ANESTHESIA: General. CONDITION: Stable. COMPLICATIONS: None. ESTIMATED BLOOD LOSS: Zero. TYPE OF CASE: Clean contaminated. FINDINGS: Meatal stenosis, dilated. Bilateral ureteral orifice, small in caliber, but patent and orthotopic. PROCEDURE IN DETAIL: The patient was taken back to the procedure room, prepped and draped in the supine position per the protocol. He was prepped and draped in the usual sterile fashion in dorsal lithotomy position. Timeout was performed. SCDs were attached. IV antibiotics were administered. A 21-Egyptian rigid scope was attempted to be placed per urethra. He had a meatal stenosis, which was dilated to 24-Egyptian with male sounds. 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 Both ureteral orifices were too small to cannulate with the open-ended ureteral catheter. Therefore, I used a wire, first at the left side. I then introduced the scope and did the same ureteral catheter placement on the right. A 16-Egyptian Ornelas was placed. Both ureteral catheters were cannulated through the tubing of the Ornelas, which was attached to the bag. The patient was handed over to the general surgeon. MERISSA RAMIREZ MD DR: KIMBERLEY/gloria JOB#: [id number] / [id number]
[2018-05-15] MEDS ORDERED: KETOROLAC 30 MG/ML INJ FOR OR. INJ ONE (12:02)
[2018-05-15] MEDS ORDERED: 0.9 % SODIUM CHLORIDE 10 ML DISP.SYRIN. IV PRN (12:15)
[2018-05-15] MEDS ORDERED: NALOXONE 0.4 MG/ML VIAL. IV PRN (12:15)
[2018-05-15] MEDS ORDERED: ONDANSETRON PF 4 MG/2 ML VIAL. IV PRN (12:15)
--- NOTE | 2018-05-15 12:28 | PDOC4 ---
OPERATIVE NOTE Date: Date: May 15, 2018 Pre-Op Diagnosis: Perforated diverticulitis, pelvic abscess (recurrent) Post-Op Diagnosis: same Procedure Performed: Laparoscopic converted to open sigmoid resection with loop ileostomy, ileocolic resection, extensive lysis of adhesions (difficult), drainage of abscess, rigid sigmoidoscopy, biopsy of small bowel mass, removal of previous drain Surgeon: Sixto Johnson Anesthesia Type: GETA plus local Blood Loss: 200 Specimans Obtained: ileocolic resection, appendix, sigmoid colon (stitch in distal end), small bowel mass Findings: Extensive inflammatory change in pelvis, with obvious purulent material, extensive adhesion/damage to sigmoid colon and terminal ileum, no obvious liver mass, small 2 mm mass on terminal ileum (favor inflammatory change), no obvious colon mass Complications: none Operative Note: After obtaining informed consent, patient was taken to OR, induced under GETA and prepped in the usual fashion. 5 mm port placed bilateral upper quadrant, under laparoscopic guidance. Abdominal cavity was explored. Liver was normal in appearance without evidence of obvious mass. Stomach normal in appearance. Extensive inflammatory change noted in pelvis with extensive adhesions. Given this, an open procedure is elected. Lower midline incision was made with cautery. Small bowel was run from ligament of treitz to terminal ileum. Proximal small bowel normal in appearance. A small mass noted on mass of terminal ileum. Suspect this is inflammatory in nature, but this was excised and sent to pathology. Terminal ileum caught up in involuted mass of inflammatory change in pelvis, associated with sigmoid colon and diverticulitis. Extensive lysis of adhesion was performed to free up sigmoid colon, right colon and terminal ileum. This was majority of procedure. Bilateral ureters identified with assistance of stents, and maintain without injury. White line of toldt mobilized bilaterally using cautery. Duodenum maintained without injury. Drain was identified and removed and sent to pathology. At this point, it appeared that this was primarily diverticulitis in nature, from the sigmoid colon with abscess. Appendix was grossly normal, but resected with JUDITH stapled and ligasure for mesoappendix. Terminal ileum was extensively involved in this process and appeared damaged (purplish and thickened in nature ) and was not salvageable. Small bowel divided proximal to area of concern using JUDITH and right colon divided at hepatic flexure using JUDITH. Mesentery taken with ligasure. Side to side ileocolic anastomosis performed with JUDITH stapler and sealed with TA 60 stapler. Mesentery closed with 3 0 chromic. Anastomosis noted to patent, under no tension and completely viable. Sigmoid colon resected proximal to area of concern with JUDITH and contour stapler used to divide colon distal to area of concern at the level of peritoneal reflection. End to end suture anastomosis created with 3 0 PDS inside and 3 0 vicryl externally. Anastomosis noted to be patent, under no tension and completely viable. Rigid sigmoidoscopy performed without evidence of air bubbles and patent anastomosis. Gloves and gowns changed. Copious irrigation. No evidence of bleeding or other pathology. Given inflammatory change and co morbidities, proximal diversion indicated. Ileum proximal to right colon anastomosis brought up through RUQ abdominal wall over ostomy bridge. Peritoneum closed with 0 vicryl. Fascia repaired with 0 looped PDS. Skin repaired with 3 0 vicryl and 4 0 monocryl. [place] placed in wound and secured with 3 0 nylon. Dressing placed. Ileostomy matured with 3 0 chromic and noted to be patent to fascia. Ostomy device placed. Patient tolerated procedure well and sent to PACU in stable condition. All counts correct. Wound class is dirty, 4. LUIZA JOHNSON MD May 15, 2018 12:28
[2018-05-15] MEDS ORDERED: fentaNYL PF VIAL 100 MCG/2 ML VIAL ONE (12:39)
[2018-05-15] MEDS: MORPHINE SULFATE/PF 30 ML IV PRN (12:50)
[2018-05-15] MEDS ORDERED: INSULIN GLARGINE 300 UNITS/3 ML INSULN.PEN. SQ STA (13:01)
[2018-05-15] MEDS ORDERED: INSULIN LISPRO 300 UNITS/3 ML INSULN.PEN. SQ STA (13:01)
[2018-05-15] MEDS: TPN PER PHARMACY MC PRN (14:58)
--- NOTE | 2018-05-15 15:00 | NUR ---
Pharmacy TPN Dosing Note S: EDITH SELBY is a 82 year old M Currently receiving Central Continuous TPN started 05/13/18 B:Pertinent PMH: ABDOMINAL ABSCESS/PERFORATION Height: 5 feet, 10 inches Weight: 62.6 kg Current diet: NPO LABS: Sodium: 131 Potassium: 4.6 Chloride: 96 Calcium: 8.1 Corrected Calcium: 9.78 Magnesium: 1.8 CO2: 31 SCr: 0.8 Glucose: 260-428 Albumin: 1.9 AST: 111 ALT: 253 TPN FORMULA: TPN TYPE: Central Continuous AMINO ACIDS: 60 gm DEXTROSE: 195 gm LIPIDS: 20 gm SODIUM CHLORIDE: 120 mEq POTASSIUM CHLORIDE: 20 mEq POTASSIUM PHOSPHATE: 30 mmol MAGNESIUM: 20 mEq CALCIUM: 10 mEq MULTIPLE VITAMIN: 10 ml TRACE ELEMENTS: 1 ml(s) TPN PLAN: Patient to surgery today - no labs available by TPN order deadline. Continue same formula. Pharmacy will f/u with labs today and order replacement electrolytes per TPN policy as needed. R: Continue TPN Will monitor electrolytes, glucose, and tolerance to TPN. Gloria Marcano Oly, 05/15/18 1500
--- NOTE | 2018-05-15 15:08 | PDOC ---
PROGRESS NOTES Chief Complaint Chief Complaint acute abdominal pain sepsis abdominal abcess, status post percutaneous drainage, currently on IV abx, surg consult, IR placed drain on 05/11/18 Severe malnutrition History of Present Illness History of Present Illness on TPN surg today on [employer], has colectomy cont current increase insulin Vitals Vitals Vital Signs Date Time Temp Pulse Resp B/P (MAP) Pulse Ox O2 Delivery O2 Flow Rate FiO2 05/15/18 13:45 98.0 124 20 114/68 97 Nasal Cannula 3.0 98.0 Simple Mask Physical Exam Physical Exam GENERAL: Propped up in bed, alert, NAD HEENT: Pupils equal and reactive. Oral cavity, pharynx has some mild thrush - better. dentures NECK: Supple, no JVD. LUNGS: Clear to auscultation, HEART: S1, S2. ABDOMEN: Nondistended, soft. BS present mild tenderness. JEREMY LLQ with purulent material EXTREMITIES: No clubbing, cyanosis or gross edema. SKIN: Warm to touch without signs of rash. NEUROLOGIC: Alert, nonfocal and appropriate. IV General: Alert, Oriented X3, Cooperative, No acute distress Lungs: Clear, Wheezing Abdomen: Soft, Other (drain purulent) Extremities: No clubbing, No cyanosis, Normal pulses Skin: No rashes, No breakdown, No significant lesion Labs LABS Laboratory Tests Test 05/14/18 16:58 05/14/18 20:34 05/15/18 07:12 05/15/18 12:24 Glucose (Fingerstick) 137 mg/dL (70-99) 208 mg/dL (70-99) 322 mg/dL (70-99) 334 mg/dL (70-99) Test 05/15/18 14:40 Glucose (Fingerstick) 325 mg/dL (70-99) Comment Review of Relevant I have reviewed the following items mukesh (where applicable) has been applied. Labs Laboratory Tests Test 05/13/18 16:55 05/13/18 18:00 05/14/18 05:45 05/14/18 08:00 Glucose (Fingerstick) 220 mg/dL (70-99) 270 mg/dL (70-99) 357 mg/dL (70-99) Sodium Level 131 mmol/L (136-145) Potassium Level 4.6 mmol/L (3.5-5.1) Chloride Level 96 mmol/L (98-107) Carbon Dioxide Level 31 mmol/L (21-32) Anion Gap 4 (6-14) Blood Urea Nitrogen 12 mg/dL (8-26) Creatinine 0.8 mg/dL (0.7-1.3) Estimated GFR (Cockcroft-Gault) 92.8 Glucose Level 343 mg/dL (70-99) Calcium Level 8.1 mg/dL (8.5-10.1) Phosphorus Level 2.5 mg/dL (2.6-4.7) Magnesium Level 1.8 mg/dL (1.8-2.4) Test 05/14/18 10:52 05/14/18 11:55 05/14/18 16:58 05/14/18 20:34 Glucose (Fingerstick) 428 mg/dL (70-99) 260 mg/dL (70-99) 137 mg/dL (70-99) 208 mg/dL (70-99) Test 05/15/18 07:12 05/15/18 12:24 05/15/18 14:40 Glucose (Fingerstick) 322 mg/dL (70-99) 334 mg/dL (70-99) 325 mg/dL (70-99) Laboratory Tests Test 05/14/18 16:58 05/14/18 20:34 05/15/18 07:12 05/15/18 12:24 Glucose (Fingerstick) 137 mg/dL (70-99) 208 mg/dL (70-99) 322 mg/dL (70-99) 334 mg/dL (70-99) Test 05/15/18 14:40 Glucose (Fingerstick) 325 mg/dL (70-99) Microbiology 05/10/18 Blood Culture - Preliminary, Resulted NO GROWTH AFTER 4 DAYS 05/11/18 Anaerobic/Aerobic Culture, Resulted Pending 05/11/18 Anaerobic Culture Result 1 (AMBROCIO), Resulted Pending 05/11/18 Aerobic Culture - Final, Resulted 05/11/18 Aerobic Culture Result 1 (AMBROCIO) - Final, Resulted 05/11/18 Aerobic Culture Result 2 (AMBROCIO) - Final, Resulted 05/11/18 Aerobic Culture Result 3 (AMBROCIO) - Final, Resulted 05/11/18 Antimicrobic Susceptibility - Final, Resulted 05/11/18 Gram Stain - Final, Resulted 05/11/18 Gram Stain Result 1 (AMBROCIO) - Final, Resulted 05/11/18 Gram Stain Result 2 (AMBROCIO) - Final, Resulted 05/11/18 Gram Stain Result 3 (AMBROCIO) - Final, Resulted 05/11/18 Gram Stain Result 4 (AMBROCIO) - Final, Resulted Medications Current Medications Hyoscyamine (Anaspaz) 0.125 mg ONCE ONCE PO Last administered on 05/10/18 12: 07; Start 05/10/18 at 11:30; Stop 05/10/18 at 11:32; Status DC Ondansetron HCl (Zofran) 4 mg 1X ONCE IV Last administered on 05/10/18 12:09 ; Start 05/10/18 at 11:30; Stop 05/10/18 at 11:32; Status DC Sodium Chloride 500 ml @ 500 mls/hr 1X ONCE IV Last administered on 12:04; Start 05/10/18 at 11:30; Stop 05/10/18 at 12:29; Status DC Iohexol (Omnipaque 240 Mg/ml) 30 ml 1X ONCE PO Last administered on 05/10/18 12:00; Start 05/10/18 at 12:00; Stop 05/10/18 at 12:01; Status DC Iohexol (Omnipaque 300 Mg/ml) 75 ml 1X ONCE IV Last administered on 05/10/18 13:08; Start 05/10/18 at 12:00; Stop 05/10/18 at 12:01; Status DC Info (CONTRAST GIVEN -- Rx MONITORING) 1 each PRN DAILY PRN MC SEE COMMENTS; Start 05/10/18 at 12:00; Stop 05/12/18 at 11:59; Status DC Ciprofloxacin/ Dextrose 200 ml @ 200 mls/hr 1X ONCE IV Last administered on 15:58; Start 05/10/18 at 14:30; Stop 05/10/18 at 15:29; Status DC Metronidazole 100 ml @ 100 mls/hr 1X ONCE IV Last administered on 05/10/18 15:57; Start 05/10/18 at 14:30; Stop 05/10/18 at 15:29; Status DC Ondansetron HCl (Zofran) 4 mg PRN Q8HRS PRN IV NAUSEA/VOMITING; Start 05/10/18 at 14:45; Stop 05/11/18 at 14:44; Status DC Morphine Sulfate (Morphine Sulfate) 2 mg PRN Q2HR PRN IV PAIN Last administered on 05/10/18at 16:29; Start 05/10/18 at 14:45; Stop 05/10/18 at 17:27 ; Status DC Sodium Chloride 1,000 ml @ 125 mls/hr Q8H IV Last administered on 05/11/18at 08 :26; Start 05/10/18 at 15:00; Stop 05/11/18 at 14:59; Status DC Acetaminophen (Tylenol) 650 mg PRN Q4HRS PRN PO FEVER; Start 05/10/18 at 14:45 ; Stop 05/11/18 at 14:44; Status DC Ciprofloxacin/ Dextrose 200 ml @ 200 mls/hr Q12HR IV ; Start 05/11/18 at 09:00 ; Stop 05/11/18 at 09:00; Status DC Metronidazole 100 ml @ 100 mls/hr Q12HR IV ; Start 05/10/18 at 21:00; Stop at 21:00; Status DC Morphine Sulfate (Morphine Sulfate) 4 mg PRN Q2HR PRN IV PAIN Last administered on 05/14/18at 22:04; Start 05/10/18 at 17:30; Stop 05/15/18 at 12:07 ; Status DC Fentanyl Citrate (Fentanyl 2ml Vial) 50 mcg 1X ONCE IV Last administered on at 17:32; Start 05/10/18 at 17:30; Stop 05/10/18 at 17:31; Status DC Ketorolac Tromethamine (Toradol 15mg Vial) 15 mg 1X ONCE IV Last administered on 05/10/18at 17:36; Start 05/10/18 at 17:30; Stop 05/10/18 at 17:31; Status DC Enoxaparin Sodium (Lovenox Per Pharmacy Prophylaxis Dosing) 1 each PRN DAILY PRN MC SEE COMMENTS; Start 05/10/18 at 17:45; Status Cancel Metronidazole 100 ml @ 100 mls/hr Q12HR IV ; Start 05/11/18 at 09:00; Stop at 09:00; Status DC Enoxaparin Sodium (Lovenox 40mg Syringe) 40 mg QHS SQ Last administered on 05/10 21:33; Start 05/10/18 at 21:00; Stop 05/10/18 at 21:37; Status DC Zolpidem Tartrate (Ambien) 5 mg PRN QHS PRN PO INSOMNIA Last administered on at 23:32; Start 05/10/18 at 23:15 Meropenem 500 mg/ Sodium Chloride 50 ml @ 100 mls/hr Q6HRS IV Last administered on 05/15/18 13:16; Start 05/11/18 at 06:30 Linezolid/Dextrose 300 ml @ 300 mls/hr Q12HR IV Last administered on 20:38; Start 05/11/18 at 09:00 Micafungin Sodium 100 mg/Dextrose 100 ml @ 100 mls/hr Q24H IV Last administered on 05/15/18 07:26; Start 05/11/18 at 08:00 Clotrimazole (Mycelex) 10 mg 5XDAY MM Last administered on 05/14/18 20:41; Start 05/11/18 at 08:00 Lidocaine/Sodium Bicarbonate (Buffered Lidocaine 1%) 3 ml STK-MED ONCE .ROUTE ; Start 05/11/18 at 13:28; Stop 05/11/18 at 13:29; Status DC Insulin Human Lispro (HumaLOG) 0-5 UNITS TIDWMEALS SQ Last administered on 05/11 17:00; Start 05/11/18 at 17:00; Stop 05/11/18 at 21:35; Status DC Dextrose (Dextrose 50%-Water Syringe) 12.5 gm PRN Q15MIN PRN IV SEE COMMENTS; Start 05/11/18 at 14:15 Midazolam HCl (Versed) 2 mg STK-MED ONCE .ROUTE ; Start 05/11/18 at 14:19; Stop 05/11/18 at 14:20; Status DC Fentanyl Citrate (Fentanyl 2ml Vial) 100 mcg STK-MED ONCE .ROUTE ; Start at 14:19; Stop 05/11/18 at 14:20; Status DC Lidocaine/Sodium Bicarbonate (Buffered Lidocaine 1%) 6 ml 1X ONCE IJ Last administered on 05/11/18at 14:36; Start 05/11/18 at 14:45; Stop 05/11/18 at 14:46 ; Status DC Midazolam HCl (Versed) 1 mg 1X ONCE IV Last administered on 05/11/18 14:37; Start 05/11/18 at 14:45; Stop 05/11/18 at 14:46; Status DC Fentanyl Citrate (Fentanyl 2ml Vial) 50 mcg 1X ONCE IV Last administered on at 14:37; Start 05/11/18 at 14:45; Stop 05/11/18 at 14:46; Status DC Enoxaparin Sodium (Lovenox Per Pharmacy Prophylaxis Dosing) 1 each PRN DAILY PRN MC SEE COMMENTS; Start 05/12/18 at 09:00; Stop 05/15/18 at 12:07; Status DC Enoxaparin Sodium (Lovenox 40mg Syringe) 40 mg Q24H SQ Last administered on at 21:19; Start 05/11/18 at 21:00; Stop 05/13/18 at 22:00; Status DC Oxycodone/ Acetaminophen (Percocet 5/325) 1 tab PRN Q4HRS PRN PO PAIN Last administered on 05/11/18at 21:12; Start 05/11/18 at 16:30 Insulin Human Lispro (HumaLOG) 0-5 UNITS QIDACHS SQ Last administered on at 22:01; Start 05/11/18 at 21:40; Stop 05/12/18 at 07:35; Status DC Ondansetron HCl (Zofran) 4 mg PRN Q6HRS PRN IV NAUSEA/VOMITING 1ST CHOICE Last administered on 05/13/18at 06:34; Start 05/12/18 at 06:15; Stop 05/15/18 at 12:07 ; Status DC Insulin Human Lispro (HumaLOG) 0-7 UNITS QIDACHS SQ Last administered on at 07:33; Start 05/12/18 at 08:00 Lactobacillus Rhamnosus (Culturelle) 1 cap BID PO Last administered on at 08:24; Start 05/12/18 at 21:00 Info (Tpn Per Pharmacy) 1 each PRN DAILY PRN MC SEE COMMENTS Last administered on 05/15/18at 14:58; Start 05/12/18 at 15:30 Pantoprazole Sodium (PROTONIX VIAL for IV PUSH) 40 mg DAILYAC IVP Last administered on 05/15/18at 05:47; Start 05/13/18 at 07:30 Amlodipine Besylate (Norvasc) 5 mg DAILY PO Last administered on 05/14/18at 08: 24; Start 05/13/18 at 09:00 Carvedilol (Coreg) 12.5 mg BIDWMEALS PO Last administered on 05/13/18at 08:19; Start 05/13/18 at 08:15; Stop 05/13/18 at 16:24; Status DC Aspirin (Ecotrin) 81 mg DAILYWBKFT PO ; Start 05/14/18 at 08:00; Status UNV Atorvastatin Calcium (Lipitor) 40 mg QHS PO ; Start 05/13/18 at 21:00; Stop at 21:00; Status DC Vitamin D (Vitamin D3) 2,000 unit DAILY PO Last administered on 05/14/18at 08:23 ; Start 05/13/18 at 10:00 Insulin Glargine (Lantus) 12 units DAILY10 SQ Last administered on 05/13/18at 12 :09; Start 05/13/18 at 10:00; Stop 05/13/18 at 21:39; Status DC Lactobacillus Rhamnosus (Culturelle) 1 cap BID PO ; Start 05/13/18 at 10:00; Status Cancel Saliva Substitute (Biotene Moisturizing Mouth) 2 spray PRN Q15MIN PRN PO DRY MOUTH; Start 05/13/18 at 09:15 Ticagrelor (Brilinta) 90 mg BID PO ; Start 05/13/18 at 21:00; Status UNV Non-Formulary Medication (Budesonide/ Formoterol Fumarate (Symbicort 80-4.5 Mcg Inhaler)) 1 puff BID IH ; Start 05/13/18 at 21:00; Status UNV Non-Formulary Medication (Carisoprodol (Soma)) 1 tab BID PO ; Start 05/13/18 at 21:00; Status UNV Glimepiride (Amaryl) 4 mg DAILY PO Last administered on 05/14/18at 08:23; Start 05/13/18 at 10:00 Magnesium Oxide (Magnesium Oxide) 200 mg DAILY PO Last administered on at 08:24; Start 05/13/18 at 10:00 Metformin HCl (Glucophage) 500 mg BIDWMEALS PO ; Start 05/13/18 at 10:00; Stop 05/13/18 at 11:49; Status DC Non-Formulary Medication (Omeprazole ) 1 cap DAILY PO ; Start 05/14/18 at 09:00 ; Status UNV Insulin Human Lispro (HumaLOG) 8 units 1X ONCE SQ Last administered on at 12:08; Start 05/13/18 at 10:00; Stop 05/13/18 at 10:02; Status DC Info (Tpn Per Pharmacy) 1 each PRN DAILY PRN MC SEE COMMENTS; Start 05/13/18 at 09:30; Status Cancel Albuterol Sulfate (Ventolin Neb Soln) 2.5 mg Q6HRS NEB Last administered on at 13:02; Start 05/13/18 at 12:00; Stop 05/13/18 at 13:49; Status DC Budesonide (Pulmicort) 0.5 mg RTBID NEB ; Start 05/13/18 at 10:00 Lidocaine/Sodium Bicarbonate (Buffered Lidocaine 1%) 3 ml STK-MED ONCE .ROUTE ; Start 05/13/18 at 10:56; Stop 05/13/18 at 10:57; Status DC Lidocaine/Sodium Bicarbonate (Buffered Lidocaine 1%) 3 ml 1X ONCE INJ Last administered on 05/13/18at 11:18; Start 05/13/18 at 11:15; Stop 05/13/18 at 11:31 ; Status DC Iodixanol (Visipaque 320) 50 ml STK-MED ONCE .ROUTE ; Start 05/13/18 at 11:20; Stop 05/13/18 at 11:21; Status DC Iodixanol (Visipaque 320) 50 ml STK-MED ONCE .ROUTE ; Start 05/13/18 at 11:21; Stop 05/13/18 at 11:22; Status DC Iodixanol (Visipaque 320) 50 ml 1X ONCE IV Last administered on 05/13/18at 11: 40; Start 05/13/18 at 11:45; Stop 05/13/18 at 11:48; Status DC Info (CONTRAST GIVEN -- Rx MONITORING) 1 each PRN DAILY PRN MC SEE COMMENTS; Start 05/13/18 at 12:00; Stop 05/15/18 at 11:59; Status DC Metformin HCl (Glucophage) 500 mg BIDWMEALS PO ; Start 05/15/18 at 17:00 Magnesium Sulfate 50 ml @ 25 mls/hr 1X ONCE IV Last administered on 05/13/18at 13:22; Start 05/13/18 at 13:00; Stop 05/13/18 at 14:59; Status DC Sodium Phosphate 20 mmol/Dextrose 256.6667 ml @ 64.167 m... 1X ONCE IV Last administered on 05/13/18at 13:23; Start 05/13/18 at 13:00; Stop 05/13/18 at 16:59 ; Status DC Sodium Chloride 90 meq/Potassium Chloride 50 meq/ Potassium Phosphate 25 mmol/ Magnesium Sulfate 20 meq/Calcium Gluconate 10 meq/ Multivitamins 10 ml/Chromium / Copper/Manganese/ Seleni/Zn 1 ml/ Total Parenteral Nutrition/Amino Acids/ Dextrose/ Fat Emulsion Intravenous 1,512 ml @ 63 mls/hr TPN CONT IV Last administered on 05/13/18at 21:18; Start 05/13/18 at 22:00; Stop 05/14/18 at 21:59 ; Status DC Enoxaparin Sodium (Lovenox 40mg Syringe) 40 mg Q24H SQ ; Start 05/15/18 at 09:00 ; Stop 05/15/18 at 12:06; Status DC Albuterol Sulfate (Ventolin Neb Soln) 2.5 mg PRN Q6HRS PRN NEB SHORTNESS OF BREATH; Start 05/13/18 at 14:00 Aspirin (Ecotrin) 81 mg DAILYWBKFT PO Last administered on 05/14/18at 08:26; Start 05/13/18 at 17:30 Metoprolol Tartrate (Lopressor) 50 mg BID PO Last administered on 05/14/18at 20: 41; Start 05/13/18 at 21:00 Magnesium Sulfate/ Dextrose 100 ml @ 25 mls/hr 1X ONCE IV ; Start 05/13/18 at 18:00; Stop 05/13/18 at 21:59; Status UNV Insulin Glargine (Lantus) 14 units DAILY10 SQ Last administered on 05/14/18at 10 :26; Start 05/14/18 at 10:00; Stop 05/14/18 at 10:56; Status DC Insulin Human Lispro (HumaLOG) 5 units TIDWMEALS SQ ; Start 05/14/18 at 08:00 Insulin Human Lispro (HumaLOG) 17 units 1X ONCE SQ Last administered on at 08:28; Start 05/14/18 at 08:30; Stop 05/14/18 at 08:31; Status DC Insulin Human Lispro (HumaLOG) 26 units 1X ONCE SQ Last administered on at 11:09; Start 05/14/18 at 11:00; Stop 05/14/18 at 11:01; Status DC Insulin Glargine (Lantus) 20 units DAILY10 SQ Last administered on 05/15/18at 13 :06; Start 05/15/18 at 10:00 Insulin Human Lispro (HumaLOG) 9 units 1X ONCE SQ Last administered on at 12:29; Start 05/14/18 at 12:15; Stop 05/14/18 at 12:16; Status DC Sodium Chloride 120 meq/Potassium Chloride 20 meq/ Potassium Phosphate 30 mmol/ Magnesium Sulfate 20 meq/Calcium Gluconate 5 meq/ Multivitamins 10 ml/Chromium/ Copper/Manganese/ Seleni/Zn 1 ml/ Total Parenteral Nutrition/Amino Acids/ Dextrose/ Fat Emulsion Intravenous 1,512 ml @ 63 mls/hr TPN CONT IV Last administered on 05/14/18at 21:39; Start 05/14/18 at 22:00; Stop 05/15/18 at 21:59 Morphine Sulfate (Morphine Sulfate) 1 mg PRN Q10MIN PRN IV SEVERE PAIN Last administered on 05/12/18at 12:35; Start 05/15/18 at 07:00; Stop 05/16/18 at 06:59 Ringer's Solution 1,000 ml @ 30 mls/hr Q24H IV ; Start 05/15/18 at 07:00; Stop 05/15/18 at 18:59 Lidocaine HCl (Xylocaine-Mpf 1% 2ml Vial) 2 ml PRN 1X PRN ID IV START; Start at 07:00; Stop 05/16/18 at 06:59 Hydromorphone HCl (Dilaudid) 0.5 mg PRN Q10MIN PRN IV SEV PAIN, Second choice; Start 05/15/18 at 07:00; Stop 05/16/18 at 06:59 Prochlorperazine Edisylate (Compazine) 5 mg PACU PRN PRN IV NAUSEA, MRX1 Last administered on 05/15/18at 12:35; Start 05/15/18 at 07:00; Stop 05/16/18 at 06:59 Insulin Human Lispro (HumaLOG) 2 units 1X ONCE SQ ; Start 05/14/18 at 21:45; Stop 05/14/18 at 21:50; Status DC Bupivacaine HCl/ Epinephrine Bitart (Sensorcain-Mpf Epi 0.5%-1:[id number]) 30 ml STK -MED ONCE .ROUTE Last administered on 05/15/18at 09:19; Start 05/15/18 at 07:04 ; Stop 05/15/18 at 07:05; Status DC Fentanyl Citrate (Fentanyl 5ml Vial) 250 mcg STK-MED ONCE .ROUTE ; Start at 07:21; Stop 05/15/18 at 07:22; Status DC Rocuronium [place] (Zemuron) 50 mg STK-MED ONCE .ROUTE ; Start 05/15/18 at 07:21 ; Stop 05/15/18 at 07:22; Status DC Dexamethasone Sodium Phosphate (Decadron) 20 mg STK-MED ONCE .ROUTE ; Start at 07:26; Stop 05/15/18 at 07:27; Status DC Ondansetron HCl (Zofran) 4 mg STK-MED ONCE .ROUTE ; Start 05/15/18 at 07:26; Stop 05/15/18 at 07:27; Status DC Propofol 20 ml @ As Directed STK-MED ONCE IV ; Start 05/15/18 at 07:26; Stop at 07:27; Status DC Lidocaine HCl (Lidocaine Pf 2% Vial) 5 ml STK-MED ONCE .ROUTE ; Start 05/15/18 at 07:26; Stop 05/15/18 at 07:27; Status DC Ephedrine Sulfate (Akovaz) 50 mg STK-MED ONCE .ROUTE ; Start 05/15/18 at 07:57; Stop 05/15/18 at 07:58; Status DC Rocuronium [place] (Zemuron) 50 mg STK-MED ONCE .ROUTE ; Start 05/15/18 at 09:13 ; Stop 05/15/18 at 09:14; Status DC Glycopyrrolate (Robinul) 1 mg STK-MED ONCE .ROUTE ; Start 05/15/18 at 09:41; Stop 05/15/18 at 09:42; Status DC Neostigmine Methylsulfate (Bloxiverz) 10 mg STK-MED ONCE .ROUTE ; Start at 09:41; Stop 05/15/18 at 09:42; Status DC Sevoflurane (Ultane) 90 ml STK-MED ONCE IH ; Start 05/15/18 at 09:42; Stop 05/15 at 09:43; Status DC Labetalol HCl (Normodyne Iv Push) 20 mg 1X ONCE IVP ; Start 05/15/18 at 10:30; Stop 05/15/18 at 10:31; Status DC Ketorolac Tromethamine (Toradol For Or Only) 30 mg STK-MED ONCE INJ ; Start at 12:02; Stop 05/15/18 at 12:03; Status DC Enoxaparin Sodium (Lovenox 40mg Syringe) 40 mg Q24H SQ ; Start 05/16/18 at 08:00 Sodium Chloride (Normal Saline Flush) 3 ml QSHIFT PRN IV AFTER MEDS AND BLOOD DRAWS; Start 05/15/18 at 12:15 Naloxone HCl (Narcan) 0.4 mg PRN Q2MIN PRN IV SEE INSTRUCTIONS; Start 05/15/18 at 12:15 Sodium Chloride 1,000 ml @ 25 mls/hr Q24H IV ; Start 05/15/18 at 12:01 Morphine Sulfate 30 ml @ 0 mls/hr CONT PRN PRN IV PER PROTOCOL Last administered on 05/15/18at 12:50; Start 05/15/18 at 12:15 Ondansetron HCl (Zofran) 4 mg PRN Q6HRS PRN IV NAUESA, 1ST CHOICE; Start at 12:15 Fentanyl Citrate (Fentanyl 2ml Vial) 100 mcg STK-MED ONCE .ROUTE ; Start at 12:39; Stop 05/15/18 at 12:40; Status DC Insulin Glargine (Lantus) 10 units 1X STAT SQ ; Start 05/15/18 at 13:01; Stop 05/15/18 at 13:05; Status DC Insulin Human Lispro (HumaLOG) 4 units ONCE STAT SQ Last administered on at 13:07; Start 05/15/18 at 13:01; Stop 05/15/18 at 13:05; Status DC Sodium Chloride 120 meq/Potassium Chloride 20 meq/ Potassium Phosphate 30 mmol/ Magnesium Sulfate 20 meq/Calcium Gluconate 5 meq/ Multivitamins 10 ml/Chromium/ Copper/Manganese/ Seleni/Zn 1 ml/ Total Parenteral Nutrition/Amino Acids/ Dextrose/ Fat Emulsion Intravenous 1,512 ml @ 63 mls/hr TPN CONT IV ; Start at 22:00; Stop 05/16/18 at 21:59 Active Scripts Active Cipro (Ciprofloxacin Hcl) 500 Mg Tablet 1 Tab PO BID 14 Days Biotene Moisturizing Mouth (Saliva Stimulant Agents Comb.3) 44.3 Ml [place] 2 [place] PO PRN Q15MIN PRN 30 Days Lantus Solostar (Insulin Glargine,Hum.rec.anlog) 100 Unit/1 Ml Insuln.pen 12 Units SQ DAILY10 30 Days Culturelle (Lactobacillus Rhamnosus Gg) 1 Each Cap.sprink 1 Cap PO BID 28 Days Lipitor (Atorvastatin Calcium) 40 Mg Tablet 1 Tab PO QHS Aspirin Ec (Aspirin) 81 Mg Tablet.dr 81 Mg PO DAILYWBKFT Brilinta (Ticagrelor) 90 Mg Tablet 90 Mg PO BID Reported Metformin Hcl 500 Mg Tablet 500 Mg PO BIDWMEALS Soma (Carisoprodol) 350 Mg Tablet 1 Tab PO BID Omeprazole 40 Mg Capsule.dr 1 Cap PO DAILY Symbicort 80-4.5 Mcg Inhaler (Budesonide/Formoterol Fumarate) 10.2 Gm Hfa.aer.ad 1 Puff IH BID Amaryl (Glimepiride) 4 Mg Tablet 1 Tab PO DAILY Amlodipine Besylate 5 Mg Tablet 5 Mg PO DAILY Carvedilol (Carvedilol) 12.5 Mg Tablet 1 Tab PO BID Colestipol Hcl 1 Gm Tablet 2 Gm PO 1X Magnesium Oxide 400 Mg Tablet 250 Tab PO DAILY Vitamin D3 (Cholecalciferol (Vitamin D3)) 1,000 Unit Tablet 2,000 Tab PO DAILY Vitals/I & O Vital Sign - Last 24 Hours 05/14/18 05/14/18 05/14/18 05/14/18 19:00 20:00 20:41 22:04 Temp 98.0 98.0 Pulse 92 92 Resp 18 20 B/P (MAP) 134/79 (97) 134/79 Pulse Ox 94 94 O2 Delivery Room Air Room Air Room Air 05/14/18 05/14/18 05/15/18 05/15/18 22:34 23:00 03:00 07:10 Temp 97.9 98.1 97.9 97.9 98.1 97.9 Pulse 87 94 102 Resp 20 18 18 18 B/P (MAP) 127/77 (94) 129/75 (93) 137/80 (99) Pulse Ox 94 95 97 98 O2 Delivery Room Air Room Air Room Air Room Air 05/15/18 05/15/18 05/15/18 05/15/18 12:22 12:22 12:30 12:50 Temp 98.0 98.0 98.0 98.0 Pulse 98 118 Resp 20 20 B/P (MAP) 145/80 120/76 Pulse Ox 99 99 99 O2 Delivery Simple Mask Mask Nasal Cannula Nasal Cannula O2 Flow Rate 6 6 3 3.0 05/15/18 05/15/18 13:25 13:45 Temp 98.0 98.0 98.0 98.0 Pulse 118 124 Resp 20 20 B/P (MAP) 112/62 114/68 Pulse Ox 96 97 O2 Delivery Nasal Cannula Nasal Cannula Simple Mask Simple Mask O2 Flow Rate 3.0 3.0 Intake and Output 05/14/18 05/14/18 05/15/18 15:00 23:00 07:00 Intake Total 180 ml Output Total 30 ml Balance 180 ml -30 ml Nutrition Consultation Dietary Evaluation: Recommendations by RD: PPN/TPN Comments: Recommend continue current TPN order Diet advancement per GI to regular as tollerated post surgery Expected Outcomes/Goals: TPN to meet >75% estimated nutrition needs Advancement to Regular diet post surgery as tollerated Interpretation of weight loss: >7.5% in 3 months Malnutrition Findings: Body Fat Depletion (Non Severe: Mild Depletion Weight Status: Appropriate ANITA ALVARADO MD May 15, 2018 15:08
[2018-05-15] MEDS ORDERED: INSULIN LISPRO 300 UNITS/3 ML INSULN.PEN. SQ ONE ×2 (15:15→21:15)
[2018-05-15] MEDS: CHOLECALCIFEROL (VITAMIN D3) 1,000 UNIT TABLET PO SCH (15:30)
[2018-05-15] MEDS: GLIMEPIRIDE 2 MG TABLET. PO SCH (15:31)
[2018-05-15] MEDS: ASPIRIN ENTERIC COATED 81 MG TABLET.DR. PO SCH (15:31)
[2018-05-15] MEDS: MAGNESIUM OXIDE 400 MG TABLET PO SCH (15:32)
[2018-05-15] MEDS: amLODIPine BESYLATE 5 MG TABLET PO SCH (15:33)
[2018-05-15] MEDS: METOPROLOL TART IMMED RELEASE 50 MG TABLET. PO SCH ×2 (15:33→21:27)
[2018-05-15] MEDS: IV NORMAL SALINE 1000ML BAG 1,000 ML IV SCH (15:34)
[2018-05-15 15:36] LABS: CALCIUM 7.9 mg/dL (8.5-10.1); CREATININE 0.9 mg/dL (0.7-1.3); POTASSIUM 4.2 mmol/L (3.5-5.1)
[2018-05-15 15:40] LABS: MAGNESIUM 1.5 mg/dL (1.8-2.4); PHOSPHORUS 3.2 mg/dL (2.6-4.7)
[2018-05-15] MEDS ORDERED: MAGNESIUM SULFATE 1GM 100 ML IV ONE (16:30)
[2018-05-15] MEDS: metFORMIN 500 MG TABLET PO SCH (18:08)
[2018-05-15] MEDS ORDERED: INSULIN GLARGINE 300 UNITS/3 ML INSULN.PEN. SQ ONE (21:15)
--- NOTE | 2018-05-15 21:15 | NUR ---
Accucheck blood sugar on right hand 512 and on left hand 447. Dr. Reis notified of blood sugars. Orders received. Will continue to monitor.
[2018-05-15] MEDS ORDERED: TOTAL PARENTERAL NUTRITION IV SCH ×10 (22:00)
[2018-05-15] MEDS ORDERED: [UNRECOGNIZED DRUG - OTHER] IV SCH ×10 (22:00)
[2018-05-15] MEDS ORDERED: DEXTROSE 70% IV SCH ×10 (22:00)
[2018-05-15] MEDS ORDERED: AMINO ACID IV SCH ×10 (22:00)
[2018-05-16] MEDS: MEROPENEM 500 MG in IV NORMAL SALINE 50ML 50 ML IV SCH ×4 (00:09→18:16)
[2018-05-16 03:00] VITALS: BP 109/66
[2018-05-16] MEDS: CLOTRIMAZOLE 10 MG TROCHE. MM SCH ×5 (06:01→22:28)
[2018-05-16 06:34] LABS: BASO % 0 % (0-3); EOS # 0.2 x10^3/uL (0.0-0.7); EOS % 1 % (0-3); HEMOGLOBIN 10.4 g/dL (13.0-17.5); LYMPH # 2.2 x10^3/uL (1.0-4.8); LYMPH % 11 % (24-48); MEAN CORPUSCULAR HEMOGLOBIN 29 pg (25-35); MEAN CORPUSCULAR HGB CONC 33 g/dL (31-37); MEAN CORPUSCULAR VOLUME 88 fL (79-100); MONO # 1.5 x10^3/uL (0.0-1.1); MONO % 7 % (0-9); NEUT # 17.5 x10^3uL (1.8-7.7); NEUT % 82 % (31-73); PLATELET COUNT 308 x10^3/uL (140-400); RED BLOOD COUNT 3.65 x10^6/uL (4.30-5.70); RED CELL DISTRIBUTION WIDTH 15.1 % (11.5-14.5); WHITE BLOOD COUNT 21.4 x10^3/uL (4.0-11.0)
[2018-05-16 06:44] LABS: MAGNESIUM 1.8 mg/dL (1.8-2.4); PHOSPHORUS 2.9 mg/dL (2.6-4.7)
[2018-05-16 07:00] VITALS: BP 123/87
[2018-05-16 07:10] LABS: ALBUMIN 1.8 g/dL (3.4-5.0); ALBUMIN/GLOBULIN RATIO 0.5 (1.0-1.7); CALCIUM 7.4 mg/dL (8.5-10.1); CREATININE 0.7 mg/dL (0.7-1.3); GFR 108.2; POTASSIUM 4.5 mmol/L (3.5-5.1); TOTAL BILIRUBIN 0.4 mg/dL (0.2-1.0); TOTAL PROTEIN 5.4 g/dL (6.4-8.2)
[2018-05-16] MEDS: BUDESONIDE 0.5 MG/2 ML NEBU. NEB SCH (07:32)
[2018-05-16] MEDS ORDERED: INSULIN LISPRO 300 UNITS/3 ML INSULN.PEN. SQ SCH (08:00)
[2018-05-16] MEDS: MICAFUNGIN 100 MG in IV DEXTROSE 5% 100ML 100 ML IV SCH (08:31)
[2018-05-16] MEDS: PANTOPRAZOLE IV PUSH 40 MG VIAL. IVP SCH (08:33)
[2018-05-16] MEDS: ASPIRIN ENTERIC COATED 81 MG TABLET.DR. PO SCH (08:34)
[2018-05-16] MEDS: MAGNESIUM OXIDE 400 MG TABLET PO SCH (08:34)
[2018-05-16] MEDS: LACTOBACILLUS RHAMNOSUS GG 1 CAPSULE. PO SCH ×2 (08:34→21:11)
[2018-05-16] MEDS: CHOLECALCIFEROL (VITAMIN D3) 1,000 UNIT TABLET PO SCH (08:34)
[2018-05-16] MEDS: metFORMIN 500 MG TABLET PO SCH ×2 (08:35→18:17)
[2018-05-16] MEDS: amLODIPine BESYLATE 5 MG TABLET PO SCH (08:35)
[2018-05-16] MEDS: GLIMEPIRIDE 2 MG TABLET. PO SCH (08:35)
[2018-05-16] MEDS: METOPROLOL TART IMMED RELEASE 50 MG TABLET. PO SCH ×2 (08:36→21:11)
[2018-05-16] MEDS: ENOXAPARIN 40 MG/0.4 ML SYRINGE. SQ SCH (08:37)
[2018-05-16] MEDS: MORPHINE SULFATE/PF 30 ML IV PRN (08:41)
[2018-05-16] MEDS: INSULIN LISPRO 300 UNITS/3 ML INSULN.PEN. SQ SCH ×7 (08:44→21:00)
[2018-05-16] MEDS: CARISOPRODOL PO SCH ×2 (09:00→21:00)
[2018-05-16] MEDS ORDERED: INSULIN GLARGINE 300 UNITS/3 ML INSULN.PEN. SQ SCH ×2 (10:00→21:00)
[2018-05-16] MEDS ORDERED: INSULIN LISPRO 300 UNITS/3 ML INSULN.PEN. SQ ONE ×2 (10:30→12:30)
[2018-05-16 10:51] LABS: % BANDS 1 % (0-9); % LYMPHS 12 % (24-48); % MONOS 5 % (0-10); % SEGS 82 % (35-66); PLT ESTIMATE ADEQUATE (ADEQUATE)
[2018-05-16 11:00] VITALS: BP 118/61
--- NOTE | 2018-05-16 11:17 | PDOC ---
Infectious Disease Note Subjective Subjective s/p surgery yesterday Pain controlled at the moment - on CABLE WIRER Tolerating clear liquids Mouth feeling better Denies N/V/F/C/SOA ROS ROS per HPI otherwise neg Vital Sign Vital Signs Vital Signs Date Time Temp Pulse Resp B/P (MAP) Pulse Ox O2 Delivery O2 Flow Rate FiO2 05/16/18 09:11 20 Room Air 05/16/18 08:36 60 123/87 05/16/18 07:00 97.4 94 97.4 05/16/18 03:00 1.0 Physical Exam PHYSICAL EXAM GENERAL: Propped up in bed, alert, NAD HEENT: Pupils equal and reactive. Oral cavity, pharynx clear, dentures NECK: Supple, no JVD. LUNGS: Clear to auscultation, HEART: S1, S2. ABDOMEN: Mildly distended, soft, tender to light palpation, hypoactive BS, dressing dry. ostomy bag sealed. JEREMY LLQ out : Ornelas in place EXTREMITIES: No clubbing, cyanosis or gross edema. SKIN: Warm to touch without signs of rash. NEUROLOGIC: Alert, nonfocal and appropriate. RUE-PICC (05/13) wo signs of complications Labs Lab Laboratory Tests Test 05/15/18 12:24 05/15/18 14:40 05/15/18 15:00 05/15/18 17:01 Glucose (Fingerstick) 334 mg/dL (70-99) 325 mg/dL (70-99) 374 mg/dL (70-99) Sodium Level 134 mmol/L (136-145) Potassium Level 4.2 mmol/L (3.5-5.1) Chloride Level 98 mmol/L (98-107) Carbon Dioxide Level 28 mmol/L (21-32) Anion Gap 8 (6-14) Blood Urea Nitrogen 12 mg/dL (8-26) Creatinine 0.9 mg/dL (0.7-1.3) Estimated GFR (Cockcroft-Gault) 81.0 Glucose Level 361 mg/dL (70-99) Calcium Level 7.9 mg/dL (8.5-10.1) Phosphorus Level 3.2 mg/dL (2.6-4.7) Magnesium Level 1.5 mg/dL (1.8-2.4) Test 05/15/18 20:28 05/16/18 06:00 05/16/18 10:08 Glucose (Fingerstick) 512 mg/dL (70-99) 363 mg/dL (70-99) White Blood Count 21.4 x10^3/uL (4.0-11.0) Red Blood Count 3.65 x10^6/uL (4.30-5.70) Hemoglobin 10.4 g/dL (13.0-17.5) Hematocrit 32.0 % (39.0-53.0) Mean Corpuscular Volume 88 fL (79-100) Mean Corpuscular Hemoglobin 29 pg (25-35) Mean Corpuscular Hemoglobin Concent 33 g/dL (31-37) Red Cell Distribution Width 15.1 % (11.5-14.5) Platelet Count 308 x10^3/uL (140-400) Neutrophils (%) (Auto) 82 % (31-73) Lymphocytes (%) (Auto) 11 % (24-48) Monocytes (%) (Auto) 7 % (0-9) Eosinophils (%) (Auto) 1 % (0-3) Basophils (%) (Auto) 0 % (0-3) Neutrophils # (Auto) 17.5 x10^3uL (1.8-7.7) Lymphocytes # (Auto) 2.2 x10^3/uL (1.0-4.8) Monocytes # (Auto) 1.5 x10^3/uL (0.0-1.1) Eosinophils # (Auto) 0.2 x10^3/uL (0.0-0.7) Basophils # (Auto) 0.0 x10^3/uL (0.0-0.2) Segmented Neutrophils % 82 % (35-66) Band Neutrophils % 1 % (0-9) Lymphocytes % 12 % (24-48) Monocytes % 5 % (0-10) Platelet Estimate Adequate (ADEQUATE) Sodium Level 134 mmol/L (136-145) Potassium Level 4.5 mmol/L (3.5-5.1) Chloride Level 100 mmol/L (98-107) Carbon Dioxide Level 27 mmol/L (21-32) Anion Gap 7 (6-14) Blood Urea Nitrogen 12 mg/dL (8-26) Creatinine 0.7 mg/dL (0.7-1.3) Estimated GFR (Cockcroft-Gault) 108.2 BUN/Creatinine Ratio 17 (6-20) Glucose Level 261 mg/dL (70-99) Calcium Level 7.4 mg/dL (8.5-10.1) Phosphorus Level 2.9 mg/dL (2.6-4.7) Magnesium Level 1.8 mg/dL (1.8-2.4) Total Bilirubin 0.4 mg/dL (0.2-1.0) Aspartate Amino Transf (AST/SGOT) 24 U/L (15-37) Alanine Aminotransferase (ALT/SGPT) 91 U/L (16-63) Alkaline Phosphatase 145 U/L (46-116) Total Protein 5.4 g/dL (6.4-8.2) Albumin 1.8 g/dL (3.4-5.0) Albumin/Globulin Ratio 0.5 (1.0-1.7) Triglycerides Level 99 mg/dL (0-150) Micro ANAEROBIC RES 1 Final No anaerobic growth in 72 hours. AEROBIC RES 1 Final Escherichia coli AEROBIC RES 2 Final Yeast isolated. Request for further identification must be made within 1 week. 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 Recurrent abdominal abscesses s/p drain on 05/11 with growth of mixed mireya, yeast and E. coli (R quinolones, amp, cefuroxime) - h/o IR drain on 04/21 with growth of Bacteroides, E. coli (R quinolones), Klebsiella and (yeast on GS) Leukocytosis - likely reactive in part to steroids and surgery on 05/15 Transaminitis - better Thrush - better DM s/p cystoscopy with bilateral stent placement, 05/15. Plan Plan of Care D/c Zyvox Cont Meropenem and Micafungin Mycelex kalyan Monitor WBC/temp am labs have been ordered Further ID workup on yeast requested, spoke with micro D/w Attending Co-Sign Attending Co-Sign The patient was seen and interviewed as well as examined at the bedside. The chart was reviewed. The case was discussed. Agree with the plan of care. LIDIA GARCIAS APRN May 16, 2018 11:17 AUNG CASTRO MD May 16, 2018 12:41
--- NOTE | 2018-05-16 11:56 | PDOC ---
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 still Severe malnutrition DM2, poor control History of Present Illness History of Present Illness on TPN, blood sugars runnign very high, will change lantus to BID and increase dose discussed with RN and pharmacy surg went well on [employer], has colectomy cont current increase insulin Vitals Vitals Vital Signs Date Time Temp Pulse Resp B/P (MAP) Pulse Ox O2 Delivery O2 Flow Rate FiO2 05/16/18 11:00 98.2 99 18 118/61 (80) 92 Nasal Cannula 98.2 05/16/18 03:00 1.0 Physical Exam Physical Exam GENERAL: Propped up in bed, alert, NAD HEENT: Pupils equal and reactive. Oral cavity, pharynx clear, dentures NECK: Supple, no JVD. LUNGS: Clear to auscultation, HEART: S1, S2. ABDOMEN: Mildly distended, soft, tender to light palpation, hypoactive BS, dressing dry. ostomy bag sealed. JEREMY LLQ out : Ornelas in place EXTREMITIES: No clubbing, cyanosis or gross edema. SKIN: Warm to touch without signs of rash. NEUROLOGIC: Alert, nonfocal and appropriate. RUE-PICC (05/13) wo signs of complications General: Alert, Oriented X3, Cooperative, No acute distress Lungs: Clear, Wheezing Abdomen: Soft, Other (drain purulent) Extremities: No clubbing, No cyanosis, Normal pulses Skin: No rashes, No breakdown, No significant lesion Labs LABS Laboratory Tests Test 05/15/18 12:24 05/15/18 14:40 05/15/18 15:00 05/15/18 17:01 Glucose (Fingerstick) 334 mg/dL (70-99) 325 mg/dL (70-99) 374 mg/dL (70-99) Sodium Level 134 mmol/L (136-145) Potassium Level 4.2 mmol/L (3.5-5.1) Chloride Level 98 mmol/L (98-107) Carbon Dioxide Level 28 mmol/L (21-32) Anion Gap 8 (6-14) Blood Urea Nitrogen 12 mg/dL (8-26) Creatinine 0.9 mg/dL (0.7-1.3) Estimated GFR (Cockcroft-Gault) 81.0 Glucose Level 361 mg/dL (70-99) Calcium Level 7.9 mg/dL (8.5-10.1) Phosphorus Level 3.2 mg/dL (2.6-4.7) Magnesium Level 1.5 mg/dL (1.8-2.4) Test 05/15/18 20:28 05/16/18 06:00 05/16/18 10:08 Glucose (Fingerstick) 512 mg/dL (70-99) 363 mg/dL (70-99) White Blood Count 21.4 x10^3/uL (4.0-11.0) Red Blood Count 3.65 x10^6/uL (4.30-5.70) Hemoglobin 10.4 g/dL (13.0-17.5) Hematocrit 32.0 % (39.0-53.0) Mean Corpuscular Volume 88 fL (79-100) Mean Corpuscular Hemoglobin 29 pg (25-35) Mean Corpuscular Hemoglobin Concent 33 g/dL (31-37) Red Cell Distribution Width 15.1 % (11.5-14.5) Platelet Count 308 x10^3/uL (140-400) Neutrophils (%) (Auto) 82 % (31-73) Lymphocytes (%) (Auto) 11 % (24-48) Monocytes (%) (Auto) 7 % (0-9) Eosinophils (%) (Auto) 1 % (0-3) Basophils (%) (Auto) 0 % (0-3) Neutrophils # (Auto) 17.5 x10^3uL (1.8-7.7) Lymphocytes # (Auto) 2.2 x10^3/uL (1.0-4.8) Monocytes # (Auto) 1.5 x10^3/uL (0.0-1.1) Eosinophils # (Auto) 0.2 x10^3/uL (0.0-0.7) Basophils # (Auto) 0.0 x10^3/uL (0.0-0.2) Segmented Neutrophils % 82 % (35-66) Band Neutrophils % 1 % (0-9) Lymphocytes % 12 % (24-48) Monocytes % 5 % (0-10) Platelet Estimate Adequate (ADEQUATE) Sodium Level 134 mmol/L (136-145) Potassium Level 4.5 mmol/L (3.5-5.1) Chloride Level 100 mmol/L (98-107) Carbon Dioxide Level 27 mmol/L (21-32) Anion Gap 7 (6-14) Blood Urea Nitrogen 12 mg/dL (8-26) Creatinine 0.7 mg/dL (0.7-1.3) Estimated GFR (Cockcroft-Gault) 108.2 BUN/Creatinine Ratio 17 (6-20) Glucose Level 261 mg/dL (70-99) Calcium Level 7.4 mg/dL (8.5-10.1) Phosphorus Level 2.9 mg/dL (2.6-4.7) Magnesium Level 1.8 mg/dL (1.8-2.4) Total Bilirubin 0.4 mg/dL (0.2-1.0) Aspartate Amino Transf (AST/SGOT) 24 U/L (15-37) Alanine Aminotransferase (ALT/SGPT) 91 U/L (16-63) Alkaline Phosphatase 145 U/L (46-116) Total Protein 5.4 g/dL (6.4-8.2) Albumin 1.8 g/dL (3.4-5.0) Albumin/Globulin Ratio 0.5 (1.0-1.7) Triglycerides Level 99 mg/dL (0-150) Comment Review of Relevant I have reviewed the following items mukesh (where applicable) has been applied. Labs Laboratory Tests Test 05/14/18 16:58 05/14/18 20:34 05/15/18 07:12 05/15/18 12:24 Glucose (Fingerstick) 137 mg/dL (70-99) 208 mg/dL (70-99) 322 mg/dL (70-99) 334 mg/dL (70-99) Test 05/15/18 14:40 05/15/18 15:00 05/15/18 17:01 05/15/18 20:28 Glucose (Fingerstick) 325 mg/dL (70-99) 374 mg/dL (70-99) 512 mg/dL (70-99) Sodium Level 134 mmol/L (136-145) Potassium Level 4.2 mmol/L (3.5-5.1) Chloride Level 98 mmol/L (98-107) Carbon Dioxide Level 28 mmol/L (21-32) Anion Gap 8 (6-14) Blood Urea Nitrogen 12 mg/dL (8-26) Creatinine 0.9 mg/dL (0.7-1.3) Estimated GFR (Cockcroft-Gault) 81.0 Glucose Level 361 mg/dL (70-99) Calcium Level 7.9 mg/dL (8.5-10.1) Phosphorus Level 3.2 mg/dL (2.6-4.7) Magnesium Level 1.5 mg/dL (1.8-2.4) Test 05/16/18 06:00 05/16/18 10:08 White Blood Count 21.4 x10^3/uL (4.0-11.0) Red Blood Count 3.65 x10^6/uL (4.30-5.70) Hemoglobin 10.4 g/dL (13.0-17.5) Hematocrit 32.0 % (39.0-53.0) Mean Corpuscular Volume 88 fL (79-100) Mean Corpuscular Hemoglobin 29 pg (25-35) Mean Corpuscular Hemoglobin Concent 33 g/dL (31-37) Red Cell Distribution Width 15.1 % (11.5-14.5) Platelet Count 308 x10^3/uL (140-400) Neutrophils (%) (Auto) 82 % (31-73) Lymphocytes (%) (Auto) 11 % (24-48) Monocytes (%) (Auto) 7 % (0-9) Eosinophils (%) (Auto) 1 % (0-3) Basophils (%) (Auto) 0 % (0-3) Neutrophils # (Auto) 17.5 x10^3uL (1.8-7.7) Lymphocytes # (Auto) 2.2 x10^3/uL (1.0-4.8) Monocytes # (Auto) 1.5 x10^3/uL (0.0-1.1) Eosinophils # (Auto) 0.2 x10^3/uL (0.0-0.7) Basophils # (Auto) 0.0 x10^3/uL (0.0-0.2) Segmented Neutrophils % 82 % (35-66) Band Neutrophils % 1 % (0-9) Lymphocytes % 12 % (24-48) Monocytes % 5 % (0-10) Platelet Estimate Adequate (ADEQUATE) Sodium Level 134 mmol/L (136-145) Potassium Level 4.5 mmol/L (3.5-5.1) Chloride Level 100 mmol/L (98-107) Carbon Dioxide Level 27 mmol/L (21-32) Anion Gap 7 (6-14) Blood Urea Nitrogen 12 mg/dL (8-26) Creatinine 0.7 mg/dL (0.7-1.3) Estimated GFR (Cockcroft-Gault) 108.2 BUN/Creatinine Ratio 17 (6-20) Glucose Level 261 mg/dL (70-99) Calcium Level 7.4 mg/dL (8.5-10.1) Phosphorus Level 2.9 mg/dL (2.6-4.7) Magnesium Level 1.8 mg/dL (1.8-2.4) Total Bilirubin 0.4 mg/dL (0.2-1.0) Aspartate Amino Transf (AST/SGOT) 24 U/L (15-37) Alanine Aminotransferase (ALT/SGPT) 91 U/L (16-63) Alkaline Phosphatase 145 U/L (46-116) Total Protein 5.4 g/dL (6.4-8.2) Albumin 1.8 g/dL (3.4-5.0) Albumin/Globulin Ratio 0.5 (1.0-1.7) Triglycerides Level 99 mg/dL (0-150) Glucose (Fingerstick) 363 mg/dL (70-99) Laboratory Tests Test 05/15/18 12:24 05/15/18 14:40 05/15/18 15:00 05/15/18 17:01 Glucose (Fingerstick) 334 mg/dL (70-99) 325 mg/dL (70-99) 374 mg/dL (70-99) Sodium Level 134 mmol/L (136-145) Potassium Level 4.2 mmol/L (3.5-5.1) Chloride Level 98 mmol/L (98-107) Carbon Dioxide Level 28 mmol/L (21-32) Anion Gap 8 (6-14) Blood Urea Nitrogen 12 mg/dL (8-26) Creatinine 0.9 mg/dL (0.7-1.3) Estimated GFR (Cockcroft-Gault) 81.0 Glucose Level 361 mg/dL (70-99) Calcium Level 7.9 mg/dL (8.5-10.1) Phosphorus Level 3.2 mg/dL (2.6-4.7) Magnesium Level 1.5 mg/dL (1.8-2.4) Test 05/15/18 20:28 05/16/18 06:00 05/16/18 10:08 Glucose (Fingerstick) 512 mg/dL (70-99) 363 mg/dL (70-99) White Blood Count 21.4 x10^3/uL (4.0-11.0) Red Blood Count 3.65 x10^6/uL (4.30-5.70) Hemoglobin 10.4 g/dL (13.0-17.5) Hematocrit 32.0 % (39.0-53.0) Mean Corpuscular Volume 88 fL (79-100) Mean Corpuscular Hemoglobin 29 pg (25-35) Mean Corpuscular Hemoglobin Concent 33 g/dL (31-37) Red Cell Distribution Width 15.1 % (11.5-14.5) Platelet Count 308 x10^3/uL (140-400) Neutrophils (%) (Auto) 82 % (31-73) Lymphocytes (%) (Auto) 11 % (24-48) Monocytes (%) (Auto) 7 % (0-9) Eosinophils (%) (Auto) 1 % (0-3) Basophils (%) (Auto) 0 % (0-3) Neutrophils # (Auto) 17.5 x10^3uL (1.8-7.7) Lymphocytes # (Auto) 2.2 x10^3/uL (1.0-4.8) Monocytes # (Auto) 1.5 x10^3/uL (0.0-1.1) Eosinophils # (Auto) 0.2 x10^3/uL (0.0-0.7) Basophils # (Auto) 0.0 x10^3/uL (0.0-0.2) Segmented Neutrophils % 82 % (35-66) Band Neutrophils % 1 % (0-9) Lymphocytes % 12 % (24-48) Monocytes % 5 % (0-10) Platelet Estimate Adequate (ADEQUATE) Sodium Level 134 mmol/L (136-145) Potassium Level 4.5 mmol/L (3.5-5.1) Chloride Level 100 mmol/L (98-107) Carbon Dioxide Level 27 mmol/L (21-32) Anion Gap 7 (6-14) Blood Urea Nitrogen 12 mg/dL (8-26) Creatinine 0.7 mg/dL (0.7-1.3) Estimated GFR (Cockcroft-Gault) 108.2 BUN/Creatinine Ratio 17 (6-20) Glucose Level 261 mg/dL (70-99) Calcium Level 7.4 mg/dL (8.5-10.1) Phosphorus Level 2.9 mg/dL (2.6-4.7) Magnesium Level 1.8 mg/dL (1.8-2.4) Total Bilirubin 0.4 mg/dL (0.2-1.0) Aspartate Amino Transf (AST/SGOT) 24 U/L (15-37) Alanine Aminotransferase (ALT/SGPT) 91 U/L (16-63) Alkaline Phosphatase 145 U/L (46-116) Total Protein 5.4 g/dL (6.4-8.2) Albumin 1.8 g/dL (3.4-5.0) Albumin/Globulin Ratio 0.5 (1.0-1.7) Triglycerides Level 99 mg/dL (0-150) Microbiology 05/10/18 Blood Culture - Final, Complete NO GROWTH AFTER 5 DAYS 05/11/18 Anaerobic/Aerobic Culture - Final, Complete 05/11/18 Anaerobic Culture Result 1 (AMBROCIO) - Final, Complete 05/11/18 Aerobic Culture - Final, Complete 05/11/18 Aerobic Culture Result 1 (AMBROCIO) - Final, Complete 05/11/18 Aerobic Culture Result 2 (AMBROCIO) - Final, Complete 05/11/18 Aerobic Culture Result 3 (AMBROCIO) - Final, Complete 05/11/18 Antimicrobic Susceptibility - Final, Complete 05/11/18 Gram Stain - Final, Complete 05/11/18 Gram Stain Result 1 (AMBROCIO) - Final, Complete 05/11/18 Gram Stain Result 2 (AMBROCIO) - Final, Complete 05/11/18 Gram Stain Result 3 (AMBROCIO) - Final, Complete 05/11/18 Gram Stain Result 4 (AMBROCIO) - Final, Complete Medications Current Medications Hyoscyamine (Anaspaz) 0.125 mg ONCE ONCE PO Last administered on 05/10/18 12: 07; Start 05/10/18 at 11:30; Stop 05/10/18 at 11:32; Status DC Ondansetron HCl (Zofran) 4 mg 1X ONCE IV Last administered on 05/10/18 12:09 ; Start 05/10/18 at 11:30; Stop 05/10/18 at 11:32; Status DC Sodium Chloride 500 ml @ 500 mls/hr 1X ONCE IV Last administered on at 12:04; Start 05/10/18 at 11:30; Stop 05/10/18 at 12:29; Status DC Iohexol (Omnipaque 240 Mg/ml) 30 ml 1X ONCE PO Last administered on 05/10/18 12:00; Start 05/10/18 at 12:00; Stop 05/10/18 at 12:01; Status DC Iohexol (Omnipaque 300 Mg/ml) 75 ml 1X ONCE IV Last administered on 05/10/18 13:08; Start 05/10/18 at 12:00; Stop 05/10/18 at 12:01; Status DC Info (CONTRAST GIVEN -- Rx MONITORING) 1 each PRN DAILY PRN MC SEE COMMENTS; Start 05/10/18 at 12:00; Stop 05/12/18 at 11:59; Status DC Ciprofloxacin/ Dextrose 200 ml @ 200 mls/hr 1X ONCE IV Last administered on 15:58; Start 05/10/18 at 14:30; Stop 05/10/18 at 15:29; Status DC Metronidazole 100 ml @ 100 mls/hr 1X ONCE IV Last administered on 05/10/18 15:57; Start 05/10/18 at 14:30; Stop 05/10/18 at 15:29; Status DC Ondansetron HCl (Zofran) 4 mg PRN Q8HRS PRN IV NAUSEA/VOMITING; Start 05/10/18 at 14:45; Stop 05/11/18 at 14:44; Status DC Morphine Sulfate (Morphine Sulfate) 2 mg PRN Q2HR PRN IV PAIN Last administered on 05/10/18at 16:29; Start 05/10/18 at 14:45; Stop 05/10/18 at 17:27 ; Status DC Sodium Chloride 1,000 ml @ 125 mls/hr Q8H IV Last administered on 05/11/18 08 :26; Start 05/10/18 at 15:00; Stop 05/11/18 at 14:59; Status DC Acetaminophen (Tylenol) 650 mg PRN Q4HRS PRN PO FEVER; Start 05/10/18 at 14:45 ; Stop 05/11/18 at 14:44; Status DC Ciprofloxacin/ Dextrose 200 ml @ 200 mls/hr Q12HR IV ; Start 05/11/18 at 09:00 ; Stop 05/11/18 at 09:00; Status DC Metronidazole 100 ml @ 100 mls/hr Q12HR IV ; Start 05/10/18 at 21:00; Stop at 21:00; Status DC Morphine Sulfate (Morphine Sulfate) 4 mg PRN Q2HR PRN IV PAIN Last administered on 05/14/18at 22:04; Start 05/10/18 at 17:30; Stop 05/15/18 at 12:07 ; Status DC Fentanyl Citrate (Fentanyl 2ml Vial) 50 mcg 1X ONCE IV Last administered on at 17:32; Start 05/10/18 at 17:30; Stop 05/10/18 at 17:31; Status DC Ketorolac Tromethamine (Toradol 15mg Vial) 15 mg 1X ONCE IV Last administered on 05/10/18at 17:36; Start 05/10/18 at 17:30; Stop 05/10/18 at 17:31; Status DC Enoxaparin Sodium (Lovenox Per Pharmacy Prophylaxis Dosing) 1 each PRN DAILY PRN MC SEE COMMENTS; Start 05/10/18 at 17:45; Status Cancel Metronidazole 100 ml @ 100 mls/hr Q12HR IV ; Start 05/11/18 at 09:00; Stop at 09:00; Status DC Enoxaparin Sodium (Lovenox 40mg Syringe) 40 mg QHS SQ Last administered on 05/10at 21:33; Start 05/10/18 at 21:00; Stop 05/10/18 at 21:37; Status DC Zolpidem Tartrate (Ambien) 5 mg PRN QHS PRN PO INSOMNIA Last administered on at 23:32; Start 05/10/18 at 23:15 Meropenem 500 mg/ Sodium Chloride 50 ml @ 100 mls/hr Q6HRS IV Last administered on 05/16/18 06:02; Start 05/11/18 at 06:30 Linezolid/Dextrose 300 ml @ 300 mls/hr Q12HR IV Last administered on 08:33; Start 05/11/18 at 09:00 Micafungin Sodium 100 mg/Dextrose 100 ml @ 100 mls/hr Q24H IV Last administered on 05/16/18 08:31; Start 05/11/18 at 08:00 Clotrimazole (Mycelex) 10 mg 5XDAY MM Last administered on 05/16/18 09:15; Start 05/11/18 at 08:00 Lidocaine/Sodium Bicarbonate (Buffered Lidocaine 1%) 3 ml STK-MED ONCE .ROUTE ; Start 05/11/18 at 13:28; Stop 05/11/18 at 13:29; Status DC Insulin Human Lispro (HumaLOG) 0-5 UNITS TIDWMEALS SQ Last administered on 05/11at 17:00; Start 05/11/18 at 17:00; Stop 05/11/18 at 21:35; Status DC Dextrose (Dextrose 50%-Water Syringe) 12.5 gm PRN Q15MIN PRN IV SEE COMMENTS; Start 05/11/18 at 14:15 Midazolam HCl (Versed) 2 mg STK-MED ONCE .ROUTE ; Start 05/11/18 at 14:19; Stop 05/11/18 at 14:20; Status DC Fentanyl Citrate (Fentanyl 2ml Vial) 100 mcg STK-MED ONCE .ROUTE ; Start at 14:19; Stop 05/11/18 at 14:20; Status DC Lidocaine/Sodium Bicarbonate (Buffered Lidocaine 1%) 6 ml 1X ONCE IJ Last administered on 05/11/18 14:36; Start 05/11/18 at 14:45; Stop 05/11/18 at 14:46 ; Status DC Midazolam HCl (Versed) 1 mg 1X ONCE IV Last administered on 05/11/18 14:37; Start 05/11/18 at 14:45; Stop 05/11/18 at 14:46; Status DC Fentanyl Citrate (Fentanyl 2ml Vial) 50 mcg 1X ONCE IV Last administered on 14:37; Start 05/11/18 at 14:45; Stop 05/11/18 at 14:46; Status DC Enoxaparin Sodium (Lovenox Per Pharmacy Prophylaxis Dosing) 1 each PRN DAILY PRN MC SEE COMMENTS; Start 05/12/18 at 09:00; Stop 05/15/18 at 12:07; Status DC Enoxaparin Sodium (Lovenox 40mg Syringe) 40 mg Q24H SQ Last administered on at 21:19; Start 05/11/18 at 21:00; Stop 05/13/18 at 22:00; Status DC Oxycodone/ Acetaminophen (Percocet 5/325) 1 tab PRN Q4HRS PRN PO PAIN Last administered on 05/11/18 21:12; Start 05/11/18 at 16:30 Insulin Human Lispro (HumaLOG) 0-5 UNITS QIDACHS SQ Last administered on 22:01; Start 05/11/18 at 21:40; Stop 05/12/18 at 07:35; Status DC Ondansetron HCl (Zofran) 4 mg PRN Q6HRS PRN IV NAUSEA/VOMITING 1ST CHOICE Last administered on 05/13/18 06:34; Start 05/12/18 at 06:15; Stop 05/15/18 at 12:07 ; Status DC Insulin Human Lispro (HumaLOG) 0-7 UNITS QIDACHS SQ Last administered on 08:45; Start 05/12/18 at 08:00 Lactobacillus Rhamnosus (Culturelle) 1 cap BID PO Last administered on 08:34; Start 05/12/18 at 21:00 Info (Tpn Per Pharmacy) 1 each PRN DAILY PRN MC SEE COMMENTS Last administered on 05/15/18 14:58; Start 05/12/18 at 15:30 Pantoprazole Sodium (PROTONIX VIAL for IV PUSH) 40 mg DAILYAC IVP Last administered on 05/16/18 08:33; Start 05/13/18 at 07:30 Amlodipine Besylate (Norvasc) 5 mg DAILY PO Last administered on 05/16/18 08: 35; Start 05/13/18 at 09:00 Carvedilol (Coreg) 12.5 mg BIDWMEALS PO Last administered on 05/13/18at 08:19; Start 05/13/18 at 08:15; Stop 05/13/18 at 16:24; Status DC Aspirin (Ecotrin) 81 mg DAILYWBKFT PO ; Start 05/14/18 at 08:00; Status UNV Atorvastatin Calcium (Lipitor) 40 mg QHS PO ; Start 05/13/18 at 21:00; Stop at 21:00; Status DC Vitamin D (Vitamin D3) 2,000 unit DAILY PO Last administered on 05/16/18at 08:34 ; Start 05/13/18 at 10:00 Insulin Glargine (Lantus) 12 units DAILY10 SQ Last administered on 05/13/18at 12 :09; Start 05/13/18 at 10:00; Stop 05/13/18 at 21:39; Status DC Lactobacillus Rhamnosus (Culturelle) 1 cap BID PO ; Start 05/13/18 at 10:00; Status Cancel Saliva Substitute (Biotene Moisturizing Mouth) 2 spray PRN Q15MIN PRN PO DRY MOUTH; Start 05/13/18 at 09:15 Ticagrelor (Brilinta) 90 mg BID PO ; Start 05/13/18 at 21:00; Status UNV Non-Formulary Medication (Budesonide/ Formoterol Fumarate (Symbicort 80-4.5 Mcg Inhaler)) 1 puff BID IH ; Start 05/13/18 at 21:00; Status UNV Non-Formulary Medication (Carisoprodol (Soma)) 1 tab BID PO ; Start 05/13/18 at 21:00; Status UNV Glimepiride (Amaryl) 4 mg DAILY PO Last administered on 05/16/18at 08:35; Start 05/13/18 at 10:00 Magnesium Oxide (Magnesium Oxide) 200 mg DAILY PO Last administered on at 08:34; Start 05/13/18 at 10:00 Metformin HCl (Glucophage) 500 mg BIDWMEALS PO ; Start 05/13/18 at 10:00; Stop 05/13/18 at 11:49; Status DC Non-Formulary Medication (Omeprazole ) 1 cap DAILY PO ; Start 05/14/18 at 09:00 ; Status UNV Insulin Human Lispro (HumaLOG) 8 units 1X ONCE SQ Last administered on at 12:08; Start 05/13/18 at 10:00; Stop 05/13/18 at 10:02; Status DC Info (Tpn Per Pharmacy) 1 each PRN DAILY PRN MC SEE COMMENTS; Start 05/13/18 at 09:30; Status Cancel Albuterol Sulfate (Ventolin Neb Soln) 2.5 mg Q6HRS NEB Last administered on at 13:02; Start 05/13/18 at 12:00; Stop 05/13/18 at 13:49; Status DC Budesonide (Pulmicort) 0.5 mg RTBID NEB ; Start 05/13/18 at 10:00 Lidocaine/Sodium Bicarbonate (Buffered Lidocaine 1%) 3 ml STK-MED ONCE .ROUTE ; Start 05/13/18 at 10:56; Stop 05/13/18 at 10:57; Status DC Lidocaine/Sodium Bicarbonate (Buffered Lidocaine 1%) 3 ml 1X ONCE INJ Last administered on 05/13/18at 11:18; Start 05/13/18 at 11:15; Stop 05/13/18 at 11:31 ; Status DC Iodixanol (Visipaque 320) 50 ml STK-MED ONCE .ROUTE ; Start 05/13/18 at 11:20; Stop 05/13/18 at 11:21; Status DC Iodixanol (Visipaque 320) 50 ml STK-MED ONCE .ROUTE ; Start 05/13/18 at 11:21; Stop 05/13/18 at 11:22; Status DC Iodixanol (Visipaque 320) 50 ml 1X ONCE IV Last administered on 05/13/18at 11: 40; Start 05/13/18 at 11:45; Stop 05/13/18 at 11:48; Status DC Info (CONTRAST GIVEN -- Rx MONITORING) 1 each PRN DAILY PRN MC SEE COMMENTS; Start 05/13/18 at 12:00; Stop 05/15/18 at 11:59; Status DC Metformin HCl (Glucophage) 500 mg BIDWMEALS PO Last administered on 05/16/18at 08:35; Start 05/15/18 at 17:00 Magnesium Sulfate 50 ml @ 25 mls/hr 1X ONCE IV Last administered on 05/13/18at 13:22; Start 05/13/18 at 13:00; Stop 05/13/18 at 14:59; Status DC Sodium Phosphate 20 mmol/Dextrose 256.6667 ml @ 64.167 m... 1X ONCE IV Last administered on 05/13/18at 13:23; Start 05/13/18 at 13:00; Stop 05/13/18 at 16:59 ; Status DC Sodium Chloride 90 meq/Potassium Chloride 50 meq/ Potassium Phosphate 25 mmol/ Magnesium Sulfate 20 meq/Calcium Gluconate 10 meq/ Multivitamins 10 ml/Chromium / Copper/Manganese/ Seleni/Zn 1 ml/ Total Parenteral Nutrition/Amino Acids/ Dextrose/ Fat Emulsion Intravenous 1,512 ml @ 63 mls/hr TPN CONT IV Last administered on 05/13/18at 21:18; Start 05/13/18 at 22:00; Stop 05/14/18 at 21:59 ; Status DC Enoxaparin Sodium (Lovenox 40mg Syringe) 40 mg Q24H SQ ; Start 05/15/18 at 09:00 ; Stop 05/15/18 at 12:06; Status DC Albuterol Sulfate (Ventolin Neb Soln) 2.5 mg PRN Q6HRS PRN NEB SHORTNESS OF BREATH; Start 05/13/18 at 14:00 Aspirin (Ecotrin) 81 mg DAILYWBKFT PO Last administered on 05/16/18at 08:34; Start 05/13/18 at 17:30 Metoprolol Tartrate (Lopressor) 50 mg BID PO Last administered on 05/16/18at 08: 36; Start 05/13/18 at 21:00 Magnesium Sulfate/ Dextrose 100 ml @ 25 mls/hr 1X ONCE IV ; Start 05/13/18 at 18:00; Stop 05/13/18 at 21:59; Status UNV Insulin Glargine (Lantus) 14 units DAILY10 SQ Last administered on 05/14/18at 10 :26; Start 05/14/18 at 10:00; Stop 05/14/18 at 10:56; Status DC Insulin Human Lispro (HumaLOG) 5 units TIDWMEALS SQ Last administered on at 08:44; Start 05/14/18 at 08:00 Insulin Human Lispro (HumaLOG) 17 units 1X ONCE SQ Last administered on at 08:28; Start 05/14/18 at 08:30; Stop 05/14/18 at 08:31; Status DC Insulin Human Lispro (HumaLOG) 26 units 1X ONCE SQ Last administered on at 11:09; Start 05/14/18 at 11:00; Stop 05/14/18 at 11:01; Status DC Insulin Glargine (Lantus) 20 units DAILY10 SQ Last administered on 05/15/18at 13 :06; Start 05/15/18 at 10:00; Stop 05/15/18 at 15:08; Status DC Insulin Human Lispro (HumaLOG) 9 units 1X ONCE SQ Last administered on at 12:29; Start 05/14/18 at 12:15; Stop 05/14/18 at 12:16; Status DC Sodium Chloride 120 meq/Potassium Chloride 20 meq/ Potassium Phosphate 30 mmol/ Magnesium Sulfate 20 meq/Calcium Gluconate 5 meq/ Multivitamins 10 ml/Chromium/ Copper/Manganese/ Seleni/Zn 1 ml/ Total Parenteral Nutrition/Amino Acids/ Dextrose/ Fat Emulsion Intravenous 1,512 ml @ 63 mls/hr TPN CONT IV Last administered on 05/14/18at 21:39; Start 05/14/18 at 22:00; Stop 05/15/18 at 21:59 ; Status DC Morphine Sulfate (Morphine Sulfate) 1 mg PRN Q10MIN PRN IV SEVERE PAIN Last administered on 05/12/18at 12:35; Start 05/15/18 at 07:00; Stop 05/16/18 at 06:59 ; Status DC Ringer's Solution 1,000 ml @ 30 mls/hr Q24H IV ; Start 05/15/18 at 07:00; Stop 05/15/18 at 18:59; Status DC Lidocaine HCl (Xylocaine-Mpf 1% 2ml Vial) 2 ml PRN 1X PRN ID IV START; Start at 07:00; Stop 05/16/18 at 06:59; Status DC Hydromorphone HCl (Dilaudid) 0.5 mg PRN Q10MIN PRN IV SEV PAIN, Second choice; Start 05/15/18 at 07:00; Stop 05/16/18 at 06:59; Status DC Prochlorperazine Edisylate (Compazine) 5 mg PACU PRN PRN IV NAUSEA, MRX1 Last administered on 05/15/18at 12:35; Start 05/15/18 at 07:00; Stop 05/16/18 at 06:59 ; Status DC Insulin Human Lispro (HumaLOG) 2 units 1X ONCE SQ ; Start 05/14/18 at 21:45; Stop 05/14/18 at 21:50; Status DC Bupivacaine HCl/ Epinephrine Bitart (Sensorcain-Mpf Epi 0.5%-[id number]) 30 ml STK -MED ONCE .ROUTE Last administered on 05/15/18at 09:19; Start 05/15/18 at 07:04 ; Stop 05/15/18 at 07:05; Status DC Fentanyl Citrate (Fentanyl 5ml Vial) 250 mcg STK-MED ONCE .ROUTE ; Start at 07:21; Stop 05/15/18 at 07:22; Status DC Rocuronium [place] (Zemuron) 50 mg STK-MED ONCE .ROUTE ; Start 05/15/18 at 07:21 ; Stop 05/15/18 at 07:22; Status DC Dexamethasone Sodium Phosphate (Decadron) 20 mg STK-MED ONCE .ROUTE ; Start at 07:26; Stop 05/15/18 at 07:27; Status DC Ondansetron HCl (Zofran) 4 mg STK-MED ONCE .ROUTE ; Start 05/15/18 at 07:26; Stop 05/15/18 at 07:27; Status DC Propofol 20 ml @ As Directed STK-MED ONCE IV ; Start 05/15/18 at 07:26; Stop at 07:27; Status DC Lidocaine HCl (Lidocaine Pf 2% Vial) 5 ml STK-MED ONCE .ROUTE ; Start 05/15/18 at 07:26; Stop 05/15/18 at 07:27; Status DC Ephedrine Sulfate (Akovaz) 50 mg STK-MED ONCE .ROUTE ; Start 05/15/18 at 07:57; Stop 05/15/18 at 07:58; Status DC Rocuronium [place] (Zemuron) 50 mg STK-MED ONCE .ROUTE ; Start 05/15/18 at 09:13 ; Stop 05/15/18 at 09:14; Status DC Glycopyrrolate (Robinul) 1 mg STK-MED ONCE .ROUTE ; Start 05/15/18 at 09:41; Stop 05/15/18 at 09:42; Status DC Neostigmine Methylsulfate (Bloxiverz) 10 mg STK-MED ONCE .ROUTE ; Start at 09:41; Stop 05/15/18 at 09:42; Status DC Sevoflurane (Ultane) 90 ml STK-MED ONCE IH ; Start 05/15/18 at 09:42; Stop 05/15 at 09:43; Status DC Labetalol HCl (Normodyne Iv Push) 20 mg 1X ONCE IVP ; Start 05/15/18 at 10:30; Stop 05/15/18 at 10:31; Status DC Ketorolac Tromethamine (Toradol For Or Only) 30 mg STK-MED ONCE INJ ; Start at 12:02; Stop 05/15/18 at 12:03; Status DC Enoxaparin Sodium (Lovenox 40mg Syringe) 40 mg Q24H SQ Last administered on at 08:37; Start 05/16/18 at 08:00 Sodium Chloride (Normal Saline Flush) 3 ml QSHIFT PRN IV AFTER MEDS AND BLOOD DRAWS; Start 05/15/18 at 12:15 Naloxone HCl (Narcan) 0.4 mg PRN Q2MIN PRN IV SEE INSTRUCTIONS; Start 05/15/18 at 12:15 Sodium Chloride 1,000 ml @ 25 mls/hr Q24H IV Last administered on 05/15/18at 15 :34; Start 05/15/18 at 12:01 Morphine Sulfate 30 ml @ 0 mls/hr CONT PRN PRN IV PER PROTOCOL Last administered on 05/16/18at 08:41; Start 05/15/18 at 12:15 Ondansetron HCl (Zofran) 4 mg PRN Q6HRS PRN IV NAUESA, 1ST CHOICE; Start at 12:15 Fentanyl Citrate (Fentanyl 2ml Vial) 100 mcg STK-MED ONCE .ROUTE ; Start at 12:39; Stop 05/15/18 at 12:40; Status DC Insulin Glargine (Lantus) 10 units 1X STAT SQ ; Start 05/15/18 at 13:01; Stop 05/15/18 at 13:05; Status DC Insulin Human Lispro (HumaLOG) 4 units ONCE STAT SQ Last administered on at 13:07; Start 05/15/18 at 13:01; Stop 05/15/18 at 13:05; Status DC Sodium Chloride 120 meq/Potassium Chloride 20 meq/ Potassium Phosphate 30 mmol/ Magnesium Sulfate 20 meq/Calcium Gluconate 5 meq/ Multivitamins 10 ml/Chromium/ Copper/Manganese/ Seleni/Zn 1 ml/ Total Parenteral Nutrition/Amino Acids/ Dextrose/ Fat Emulsion Intravenous 1,512 ml @ 63 mls/hr TPN CONT IV Last administered on 05/15/18at 21:52; Start 05/15/18 at 22:00; Stop 05/16/18 at 21:59 Insulin Human Lispro (HumaLOG) 17 units 1X ONCE SQ Last administered on at 15:48; Start 05/15/18 at 15:15; Stop 05/15/18 at 15:16; Status DC Insulin Glargine (Lantus) 25 units DAILY10 SQ Last administered on 05/16/18at 08 :42; Start 05/16/18 at 10:00; Stop 05/16/18 at 10:04; Status DC Magnesium Sulfate/ Dextrose 100 ml @ 100 mls/hr 1X ONCE IV Last administered on 05/15/18at 18:08; Start 05/15/18 at 16:30; Stop 05/15/18 at 17:29; Status DC Insulin Glargine (Lantus) 15 units 1X ONCE SQ Last administered on 05/15/18at 21:34; Start 05/15/18 at 21:15; Stop 05/15/18 at 21:50; Status DC Insulin Human Lispro (HumaLOG) 17 units 1X ONCE SQ Last administered on at 21:33; Start 05/15/18 at 21:15; Stop 05/15/18 at 21:50; Status DC Insulin Human Lispro (HumaLOG) 5 units TIDWMEALS SQ ; Start 05/16/18 at 08:00; Status UNV Insulin Glargine (Lantus) 25 units BID SQ ; Start 05/16/18 at 21:00; Stop at 21:00; Status DC Insulin Human Lispro (HumaLOG) 20 units 1X ONCE SQ ; Start 05/16/18 at 10:30; Stop 05/16/18 at 10:31; Status DC Insulin Glargine (Lantus) 35 units BID SQ ; Start 05/16/18 at 21:00 Enoxaparin Sodium (Lovenox 40mg Syringe) 40 mg Q24H SQ ; Start 05/16/18 at 12:00 ; Status Cancel Insulin Glargine (Lantus) 20 units 1X ONCE SQ ; Start 05/16/18 at 12:00; Stop 05/16/18 at 12:01 Magnesium Sulfate 50 ml @ 25 mls/hr 1X ONCE IV ; Start 05/16/18 at 12:00; Stop 05/16/18 at 13:59; Status UNV Active Scripts Active Cipro (Ciprofloxacin Hcl) 500 Mg Tablet 1 Tab PO BID 14 Days Biotene Moisturizing Mouth (Saliva Stimulant Agents Comb.3) 44.3 Ml [place] 2 [place] PO PRN Q15MIN PRN 30 Days Lantus Solostar (Insulin Glargine,Hum.rec.anlog) 100 Unit/1 Ml Insuln.pen 12 Units SQ DAILY10 30 Days Culturelle (Lactobacillus Rhamnosus Gg) 1 Each Cap.sprink 1 Cap PO BID 28 Days Lipitor (Atorvastatin Calcium) 40 Mg Tablet 1 Tab PO QHS Aspirin Ec (Aspirin) 81 Mg Tablet.dr 81 Mg PO DAILYWBKFT Brilinta (Ticagrelor) 90 Mg Tablet 90 Mg PO BID Reported Metformin Hcl 500 Mg Tablet 500 Mg PO BIDWMEALS Soma (Carisoprodol) 350 Mg Tablet 1 Tab PO BID Omeprazole 40 Mg Capsule.dr 1 Cap PO DAILY Symbicort 80-4.5 Mcg Inhaler (Budesonide/Formoterol Fumarate) 10.2 Gm Hfa.aer.ad 1 Puff IH BID Amaryl (Glimepiride) 4 Mg Tablet 1 Tab PO DAILY Amlodipine Besylate 5 Mg Tablet 5 Mg PO DAILY Carvedilol (Carvedilol) 12.5 Mg Tablet 1 Tab PO BID Colestipol Hcl 1 Gm Tablet 2 Gm PO 1X Magnesium Oxide 400 Mg Tablet 250 Tab PO DAILY Vitamin D3 (Cholecalciferol (Vitamin D3)) 1,000 Unit Tablet 2,000 Tab PO DAILY Vitals/I & O Vital Sign - Last 24 Hours 05/15/18 05/15/18 05/15/18 05/15/18 12:22 12:22 12:30 12:50 Temp 98.0 98.0 98.0 98.0 Pulse 98 118 Resp 20 20 B/P (MAP) 145/80 120/76 Pulse Ox 99 99 99 O2 Delivery Simple Mask Mask Nasal Cannula Nasal Cannula O2 Flow Rate 6 6 3 3.0 05/15/18 05/15/18 05/15/18 05/15/18 13:25 13:45 14:15 14:30 Temp 98.0 98.0 98.0 98.0 Pulse 118 124 124 121 Resp 20 20 B/P (MAP) 112/62 114/68 116/65 (82) 113/68 (83) Pulse Ox 96 97 98 100 O2 Delivery Nasal Cannula Nasal Cannula Nasal Cannula Nasal Cannula Simple Mask Simple Mask O2 Flow Rate 3.0 3.0 2.0 2.0 05/15/18 05/15/18 05/15/18 05/15/18 14:45 15:00 15:33 15:33 Pulse 121 117 124 124 B/P (MAP) 113/78 (90) 106/73 (84) 114/68 114/68 Pulse Ox 99 100 O2 Delivery Nasal Cannula Nasal Cannula O2 Flow Rate 2.0 2.0 05/15/18 05/15/18 05/15/18 05/15/18 15:45 16:15 16:45 19:00 Temp 98.5 98.5 Pulse 117 92 94 Resp 18 B/P (MAP) 114/76 (89) 117/57 (77) 98/63 (75) 133/87 (102) Pulse Ox 100 97 97 95 O2 Delivery Nasal Cannula Nasal Cannula Nasal Cannula Nasal Cannula O2 Flow Rate 2.0 1.0 1.0 1.0 05/15/18 05/15/18 05/15/18 05/16/18 19:40 21:27 23:00 03:00 Temp 98.4 98.2 98.4 98.2 Pulse 94 101 95 Resp 18 18 B/P (MAP) 133/87 117/63 (81) 109/66 (80) Pulse Ox 96 96 O2 Delivery Room Air Nasal Cannula Nasal Cannula O2 Flow Rate 1.0 1.0 05/16/18 05/16/18 05/16/18 05/16/18 07:00 08:35 08:36 08:41 Temp 97.4 97.4 Pulse 60 60 60 Resp 18 20 B/P (MAP) 123/87 (99) 123/87 123/87 Pulse Ox 94 O2 Delivery Nasal Cannula Room Air 05/16/18 05/16/18 09:11 11:00 Temp 98.2 98.2 Pulse 99 Resp 20 18 B/P (MAP) 118/61 (80) Pulse Ox 92 O2 Delivery Room Air Nasal Cannula Intake and Output 05/15/18 05/15/18 05/16/18 14:59 22:59 06:59 Intake Total 1600 ml 180 ml 2290 ml Output Total 525 ml 490 ml Balance 1075 ml -310 ml 2290 ml Nutrition Consultation Dietary Evaluation: Recommendations by RD: PPN/TPN Comments: Recommend continue current TPN order Diet advancement per GI to regular as tollerated post surgery Expected Outcomes/Goals: TPN to meet >75% estimated nutrition needs Advancement to Regular diet post surgery as tollerated Interpretation of weight loss: >7.5% in 3 months Malnutrition Findings: Body Fat Depletion (Non Severe: Mild Depletion Weight Status: Appropriate ANITA ALVARADO MD May 16, 2018 11:56
[2018-05-16] MEDS ORDERED: MAGNESIUM SULFATE 2GM 50 ML IV ONE (12:00)
[2018-05-16] MEDS ORDERED: INSULIN GLARGINE 300 UNITS/3 ML INSULN.PEN. SQ ONE (12:00)
[2018-05-16] MEDS ORDERED: ENOXAPARIN 40 MG/0.4 ML SYRINGE. SQ SCH (12:00)
[2018-05-16] MEDS: IV NORMAL SALINE 1000ML BAG 1,000 ML IV SCH (12:01)
[2018-05-16] MEDS: TPN PER PHARMACY MC PRN (12:55)
--- NOTE | 2018-05-16 12:59 | NUR ---
Pharmacy TPN Dosing Note S: EDITH SELBY is a 82 year old M Currently receiving Central Continuous TPN started 05/13/18 B:Pertinent PMH: ABDOMINAL ABSCESS/PERFORATION Height: 5 feet, 10 inches Weight: 62.6 kg Current diet: NPO LABS: Sodium: 134 Potassium: 4.5 Chloride: 100 Calcium: 7.4 Corrected Calcium: 9.16 Magnesium: 1.8 CO2: 27 SCr: 0.7 Glucose: 261-512 Albumin: 1.8 AST: 24 ALT: 91 TPN FORMULA: TPN TYPE: Central Continuous AMINO ACIDS: 60 gm DEXTROSE: 195 gm LIPIDS: 20 gm SODIUM CHLORIDE: 120 mEq POTASSIUM CHLORIDE: 20 mEq POTASSIUM PHOSPHATE: 30 mmol MAGNESIUM: 20 mEq CALCIUM: 10 mEq MULTIPLE VITAMIN: 10 ml TRACE ELEMENTS: 1 ml TPN PLAN: Labs improving; no changes made to TPN today. Insulin being adjusted outside of TPN (lantus and humalog) by . Magnesium 2g IVPB ordered for today. R: Continue TPN Will monitor electrolytes, glucose, and tolerance to TPN. Gloria Marcano [facility]MERLY [facility] [place], 05/16/18 1807
--- NOTE | 2018-05-16 14:28 | PDOC ---
SURGICAL PROGRESS NOTE Subjective Pt with c/o incisional pain, denies N/V, stefany some clears Vital Signs Vital Signs Date Time Temp Pulse Resp B/P (MAP) Pulse Ox O2 Delivery O2 Flow Rate FiO2 05/16/18 11:00 98.2 99 18 118/61 (80) 92 Nasal Cannula 98.2 05/16/18 03:00 1.0 I&O Intake and Output 05/16/18 07:00 Intake Total 4070 ml Output Total 1015 ml Balance 3055 ml Intake Oral 300 ml IV Total 2655 ml Other 1115 ml Output Urine Total 885 ml Stool Total 130 ml # Bowel Movements 1 PATIENT HAS A NAPIER: Yes (somewhat dark) General: Alert, Oriented X3, Cooperative, mild distress Abdomen: Soft, Other (mild TTP diffusely, ostomy viable and fxn) Labs Laboratory Tests Test 05/14/18 16:58 05/14/18 20:34 05/15/18 07:12 05/15/18 12:24 Glucose (Fingerstick) 137 mg/dL (70-99) 208 mg/dL (70-99) 322 mg/dL (70-99) 334 mg/dL (70-99) Test 05/15/18 14:40 05/15/18 15:00 05/15/18 17:01 05/15/18 20:28 Glucose (Fingerstick) 325 mg/dL (70-99) 374 mg/dL (70-99) 512 mg/dL (70-99) Sodium Level 134 mmol/L (136-145) Potassium Level 4.2 mmol/L (3.5-5.1) Chloride Level 98 mmol/L (98-107) Carbon Dioxide Level 28 mmol/L (21-32) Anion Gap 8 (6-14) Blood Urea Nitrogen 12 mg/dL (8-26) Creatinine 0.9 mg/dL (0.7-1.3) Estimated GFR (Cockcroft-Gault) 81.0 Glucose Level 361 mg/dL (70-99) Calcium Level 7.9 mg/dL (8.5-10.1) Phosphorus Level 3.2 mg/dL (2.6-4.7) Magnesium Level 1.5 mg/dL (1.8-2.4) Test 05/15/18 20:53 05/16/18 06:00 05/16/18 07:20 05/16/18 10:08 Glucose (Fingerstick) 447 mg/dL (70-99) 266 mg/dL (70-99) 363 mg/dL (70-99) White Blood Count 21.4 x10^3/uL (4.0-11.0) Red Blood Count 3.65 x10^6/uL (4.30-5.70) Hemoglobin 10.4 g/dL (13.0-17.5) Hematocrit 32.0 % (39.0-53.0) Mean Corpuscular Volume 88 fL (79-100) Mean Corpuscular Hemoglobin 29 pg (25-35) Mean Corpuscular Hemoglobin Concent 33 g/dL (31-37) Red Cell Distribution Width 15.1 % (11.5-14.5) Platelet Count 308 x10^3/uL (140-400) Neutrophils (%) (Auto) 82 % (31-73) Lymphocytes (%) (Auto) 11 % (24-48) Monocytes (%) (Auto) 7 % (0-9) Eosinophils (%) (Auto) 1 % (0-3) Basophils (%) (Auto) 0 % (0-3) Neutrophils # (Auto) 17.5 x10^3uL (1.8-7.7) Lymphocytes # (Auto) 2.2 x10^3/uL (1.0-4.8) Monocytes # (Auto) 1.5 x10^3/uL (0.0-1.1) Eosinophils # (Auto) 0.2 x10^3/uL (0.0-0.7) Basophils # (Auto) 0.0 x10^3/uL (0.0-0.2) Segmented Neutrophils % 82 % (35-66) Band Neutrophils % 1 % (0-9) Lymphocytes % 12 % (24-48) Monocytes % 5 % (0-10) Platelet Estimate Adequate (ADEQUATE) Sodium Level 134 mmol/L (136-145) Potassium Level 4.5 mmol/L (3.5-5.1) Chloride Level 100 mmol/L (98-107) Carbon Dioxide Level 27 mmol/L (21-32) Anion Gap 7 (6-14) Blood Urea Nitrogen 12 mg/dL (8-26) Creatinine 0.7 mg/dL (0.7-1.3) Estimated GFR (Cockcroft-Gault) 108.2 BUN/Creatinine Ratio 17 (6-20) Glucose Level 261 mg/dL (70-99) Calcium Level 7.4 mg/dL (8.5-10.1) Phosphorus Level 2.9 mg/dL (2.6-4.7) Magnesium Level 1.8 mg/dL (1.8-2.4) Total Bilirubin 0.4 mg/dL (0.2-1.0) Aspartate Amino Transf (AST/SGOT) 24 U/L (15-37) Alanine Aminotransferase (ALT/SGPT) 91 U/L (16-63) Alkaline Phosphatase 145 U/L (46-116) Total Protein 5.4 g/dL (6.4-8.2) Albumin 1.8 g/dL (3.4-5.0) Albumin/Globulin Ratio 0.5 (1.0-1.7) Triglycerides Level 99 mg/dL (0-150) Test 05/16/18 11:45 05/16/18 14:02 Glucose (Fingerstick) 325 mg/dL (70-99) 141 mg/dL (70-99) Laboratory Tests Test 05/15/18 14:40 05/15/18 15:00 05/15/18 17:01 05/15/18 20:28 Glucose (Fingerstick) 325 mg/dL (70-99) 374 mg/dL (70-99) 512 mg/dL (70-99) Sodium Level 134 mmol/L (136-145) Potassium Level 4.2 mmol/L (3.5-5.1) Chloride Level 98 mmol/L (98-107) Carbon Dioxide Level 28 mmol/L (21-32) Anion Gap 8 (6-14) Blood Urea Nitrogen 12 mg/dL (8-26) Creatinine 0.9 mg/dL (0.7-1.3) Estimated GFR (Cockcroft-Gault) 81.0 Glucose Level 361 mg/dL (70-99) Calcium Level 7.9 mg/dL (8.5-10.1) Phosphorus Level 3.2 mg/dL (2.6-4.7) Magnesium Level 1.5 mg/dL (1.8-2.4) Test 05/15/18 20:53 05/16/18 06:00 05/16/18 07:20 05/16/18 10:08 Glucose (Fingerstick) 447 mg/dL (70-99) 266 mg/dL (70-99) 363 mg/dL (70-99) White Blood Count 21.4 x10^3/uL (4.0-11.0) Red Blood Count 3.65 x10^6/uL (4.30-5.70) Hemoglobin 10.4 g/dL (13.0-17.5) Hematocrit 32.0 % (39.0-53.0) Mean Corpuscular Volume 88 fL (79-100) Mean Corpuscular Hemoglobin 29 pg (25-35) Mean Corpuscular Hemoglobin Concent 33 g/dL (31-37) Red Cell Distribution Width 15.1 % (11.5-14.5) Platelet Count 308 x10^3/uL (140-400) Neutrophils (%) (Auto) 82 % (31-73) Lymphocytes (%) (Auto) 11 % (24-48) Monocytes (%) (Auto) 7 % (0-9) Eosinophils (%) (Auto) 1 % (0-3) Basophils (%) (Auto) 0 % (0-3) Neutrophils # (Auto) 17.5 x10^3uL (1.8-7.7) Lymphocytes # (Auto) 2.2 x10^3/uL (1.0-4.8) Monocytes # (Auto) 1.5 x10^3/uL (0.0-1.1) Eosinophils # (Auto) 0.2 x10^3/uL (0.0-0.7) Basophils # (Auto) 0.0 x10^3/uL (0.0-0.2) Segmented Neutrophils % 82 % (35-66) Band Neutrophils % 1 % (0-9) Lymphocytes % 12 % (24-48) Monocytes % 5 % (0-10) Platelet Estimate Adequate (ADEQUATE) Sodium Level 134 mmol/L (136-145) Potassium Level 4.5 mmol/L (3.5-5.1) Chloride Level 100 mmol/L (98-107) Carbon Dioxide Level 27 mmol/L (21-32) Anion Gap 7 (6-14) Blood Urea Nitrogen 12 mg/dL (8-26) Creatinine 0.7 mg/dL (0.7-1.3) Estimated GFR (Cockcroft-Gault) 108.2 BUN/Creatinine Ratio 17 (6-20) Glucose Level 261 mg/dL (70-99) Calcium Level 7.4 mg/dL (8.5-10.1) Phosphorus Level 2.9 mg/dL (2.6-4.7) Magnesium Level 1.8 mg/dL (1.8-2.4) Total Bilirubin 0.4 mg/dL (0.2-1.0) Aspartate Amino Transf (AST/SGOT) 24 U/L (15-37) Alanine Aminotransferase (ALT/SGPT) 91 U/L (16-63) Alkaline Phosphatase 145 U/L (46-116) Total Protein 5.4 g/dL (6.4-8.2) Albumin 1.8 g/dL (3.4-5.0) Albumin/Globulin Ratio 0.5 (1.0-1.7) Triglycerides Level 99 mg/dL (0-150) Test 05/16/18 11:45 05/16/18 14:02 Glucose (Fingerstick) 325 mg/dL (70-99) 141 mg/dL (70-99) Problem List s/p xlap OOB cont clears pain control monitor uop LUIZA JOHNSON MD May 16, 2018 14:28
[2018-05-16 15:00] VITALS: BP 132/60
[2018-05-16 19:00] VITALS: BP 126/52
[2018-05-16] MEDS ORDERED: BUDESONIDE 0.5 MG/2 ML NEBU. NEB PRN (20:00)
[2018-05-16] MEDS: INSULIN GLARGINE 300 UNITS/3 ML INSULN.PEN. SQ SCH (21:21)
--- NOTE | 2018-05-16 21:21 | NUR ---
Blood sugar at bedside by accucheck was 107. Lantus 20 units given SQ instead of [address] Marcos called unit to ask about HS blood sugar reading. Explained to Dr. Marcos that I only gave patient 20 units. He agreed with me. Will continue to monitor.
[2018-05-16] MEDS ORDERED: AMINO ACID IV SCH ×10 (22:00)
[2018-05-16] MEDS ORDERED: TOTAL PARENTERAL NUTRITION IV SCH ×10 (22:00)
[2018-05-16] MEDS ORDERED: DEXTROSE 70% IV SCH ×10 (22:00)
[2018-05-16] MEDS ORDERED: [UNRECOGNIZED DRUG - OTHER] IV SCH ×10 (22:00)
[2018-05-16 23:00] VITALS: BP 139/78
[2018-05-17] MEDS: MEROPENEM 500 MG in IV NORMAL SALINE 50ML 50 ML IV SCH ×4 (00:05→17:29)
--- NOTE | 2018-05-17 00:40 | NUR ---
Blood sugar per accucheck was 154. Continue to monitor patient.
[2018-05-17 03:00] VITALS: BP 138/58
[2018-05-17] MEDS: CLOTRIMAZOLE 10 MG TROCHE. MM SCH ×5 (05:54→20:09)
[2018-05-17 06:08] LABS: BASO # 0.1 x10^3/uL (0.0-0.2); BASO % 0 % (0-3); EOS # 0.1 x10^3/uL (0.0-0.7); EOS % 0 % (0-3); HEMATOCRIT 30.8 % (39.0-53.0); HEMOGLOBIN 10.2 g/dL (13.0-17.5); LYMPH # 1.5 x10^3/uL (1.0-4.8); LYMPH % 5 % (24-48); MEAN CORPUSCULAR HEMOGLOBIN 29 pg (25-35); MEAN CORPUSCULAR HGB CONC 33 g/dL (31-37); MEAN CORPUSCULAR VOLUME 87 fL (79-100); MONO # 1.8 x10^3/uL (0.0-1.1); MONO % 6 % (0-9); NEUT # 26.6 x10^3uL (1.8-7.7); NEUT % 88 % (31-73); PLATELET COUNT 318 x10^3/uL (140-400); RED BLOOD COUNT 3.54 x10^6/uL (4.30-5.70); RED CELL DISTRIBUTION WIDTH 14.9 % (11.5-14.5); WHITE BLOOD COUNT 30.1 x10^3/uL (4.0-11.0)
[2018-05-17 06:20] LABS: ALBUMIN 1.8 g/dL (3.4-5.0); ALBUMIN/GLOBULIN RATIO 0.4 (1.0-1.7); CALCIUM 7.9 mg/dL (8.5-10.1); CREATININE 0.9 mg/dL (0.7-1.3); MAGNESIUM 1.9 mg/dL (1.8-2.4); PHOSPHORUS 3.2 mg/dL (2.6-4.7); POTASSIUM 4.7 mmol/L (3.5-5.1); TOTAL BILIRUBIN 0.4 mg/dL (0.2-1.0); TOTAL PROTEIN 5.9 g/dL (6.4-8.2)
[2018-05-17 07:00] VITALS: BP 121/62
[2018-05-17] MEDS ORDERED: DEXTROSE 50% 25 GM / 50ML DISP.SYRIN. IV PRN (08:30)
[2018-05-17] MEDS: PANTOPRAZOLE IV PUSH 40 MG VIAL. IVP SCH (08:35)
[2018-05-17] MEDS: MICAFUNGIN 100 MG in IV DEXTROSE 5% 100ML 100 ML IV SCH (08:35)
[2018-05-17] MEDS: ASPIRIN ENTERIC COATED 81 MG TABLET.DR. PO SCH (08:35)
[2018-05-17] MEDS: amLODIPine BESYLATE 5 MG TABLET PO SCH (08:36)
[2018-05-17] MEDS: GLIMEPIRIDE 2 MG TABLET. PO SCH (08:37)
[2018-05-17] MEDS: MAGNESIUM OXIDE 400 MG TABLET PO SCH (08:37)
[2018-05-17] MEDS: CHOLECALCIFEROL (VITAMIN D3) 1,000 UNIT TABLET PO SCH (08:37)
[2018-05-17] MEDS: METOPROLOL TART IMMED RELEASE 50 MG TABLET. PO SCH ×2 (08:37→20:09)
[2018-05-17] MEDS: LACTOBACILLUS RHAMNOSUS GG 1 CAPSULE. PO SCH ×2 (08:37→20:09)
[2018-05-17] MEDS: metFORMIN 500 MG TABLET PO SCH ×2 (08:37→17:28)
[2018-05-17] MEDS: CARISOPRODOL PO SCH (08:38)
[2018-05-17] MEDS: ENOXAPARIN 40 MG/0.4 ML SYRINGE. SQ SCH (08:38)
[2018-05-17] MEDS: INSULIN GLARGINE 300 UNITS/3 ML INSULN.PEN. SQ SCH ×2 (08:40→22:06)
[2018-05-17] MEDS: INSULIN LISPRO 300 UNITS/3 ML INSULN.PEN. SQ SCH ×5 (08:45→17:39)
--- NOTE | 2018-05-17 09:15 | PDOC ---
Infectious Disease Note Subjective Subjective feeling good says RODOLFO REYNOLDS no n/v/d/sob Vital Sign Vital Signs Vital Signs Date Time Temp Pulse Resp B/P (MAP) Pulse Ox O2 Delivery O2 Flow Rate FiO2 05/17/18 08:37 61 121/62 05/17/18 07:15 Room Air 05/17/18 07:00 98.5 18 94 98.5 Physical Exam PHYSICAL EXAM GENERAL: Propped up in bed, alert, NAD HEENT: Pupils equal and reactive. Oral cavity, pharynx clear, dentures NECK: Supple, no JVD. LUNGS: Clear to auscultation, HEART: S1, S2. ABDOMEN: Mildly distended, soft, tender to light palpation, hypoactive BS, dressing dry. ostomy bag sealed. JEREMY LLQ out : Ornelas in place EXTREMITIES: No clubbing, cyanosis or gross edema. SKIN: Warm to touch without signs of rash. NEUROLOGIC: Alert, nonfocal and appropriate. RUE-PICC (05/13) wo signs of complications Labs Lab Laboratory Tests Test 05/16/18 10:08 05/16/18 11:45 05/16/18 14:02 05/16/18 16:28 Glucose (Fingerstick) 363 mg/dL (70-99) 325 mg/dL (70-99) 141 mg/dL (70-99) 99 mg/dL (70-99) Test 05/16/18 20:42 05/17/18 00:45 05/17/18 05:55 05/17/18 07:31 Glucose (Fingerstick) 107 mg/dL (70-99) 154 mg/dL (70-99) 161 mg/dL (70-99) White Blood Count 30.1 x10^3/uL (4.0-11.0) Red Blood Count 3.54 x10^6/uL (4.30-5.70) Hemoglobin 10.2 g/dL (13.0-17.5) Hematocrit 30.8 % (39.0-53.0) Mean Corpuscular Volume 87 fL (79-100) Mean Corpuscular Hemoglobin 29 pg (25-35) Mean Corpuscular Hemoglobin Concent 33 g/dL (31-37) Red Cell Distribution Width 14.9 % (11.5-14.5) Platelet Count 318 x10^3/uL (140-400) Neutrophils (%) (Auto) 88 % (31-73) Lymphocytes (%) (Auto) 5 % (24-48) Monocytes (%) (Auto) 6 % (0-9) Eosinophils (%) (Auto) 0 % (0-3) Basophils (%) (Auto) 0 % (0-3) Neutrophils # (Auto) 26.6 x10^3uL (1.8-7.7) Lymphocytes # (Auto) 1.5 x10^3/uL (1.0-4.8) Monocytes # (Auto) 1.8 x10^3/uL (0.0-1.1) Eosinophils # (Auto) 0.1 x10^3/uL (0.0-0.7) Basophils # (Auto) 0.1 x10^3/uL (0.0-0.2) Sodium Level 132 mmol/L (136-145) Potassium Level 4.7 mmol/L (3.5-5.1) Chloride Level 96 mmol/L (98-107) Carbon Dioxide Level 29 mmol/L (21-32) Anion Gap 7 (6-14) Blood Urea Nitrogen 16 mg/dL (8-26) Creatinine 0.9 mg/dL (0.7-1.3) Estimated GFR (Cockcroft-Gault) 81.0 BUN/Creatinine Ratio 18 (6-20) Glucose Level 161 mg/dL (70-99) Calcium Level 7.9 mg/dL (8.5-10.1) Phosphorus Level 3.2 mg/dL (2.6-4.7) Magnesium Level 1.9 mg/dL (1.8-2.4) Total Bilirubin 0.4 mg/dL (0.2-1.0) Aspartate Amino Transf (AST/SGOT) 44 U/L (15-37) Alanine Aminotransferase (ALT/SGPT) 80 U/L (16-63) Alkaline Phosphatase 144 U/L (46-116) Total Protein 5.9 g/dL (6.4-8.2) Albumin 1.8 g/dL (3.4-5.0) Albumin/Globulin Ratio 0.4 (1.0-1.7) Micro Microbiology 05/10/18 Blood Culture - Final, Complete NO GROWTH AFTER 5 DAYS 05/11/18 Anaerobic/Aerobic Culture - Final, Complete 05/11/18 Anaerobic Culture Result 1 (AMBROCIO) - Final, Complete 05/11/18 Aerobic Culture - Final, Complete 05/11/18 Aerobic Culture Result 1 (AMBROCIO) - Final, Complete 05/11/18 Aerobic Culture Result 2 (AMBROCIO) - Final, Complete 05/11/18 Aerobic Culture Result 3 (AMBROCIO) - Final, Complete 05/11/18 Antimicrobic Susceptibility - Final, Complete 05/11/18 Gram Stain - Final, Complete 05/11/18 Gram Stain Result 1 (AMBROCIO) - Final, Complete 05/11/18 Gram Stain Result 2 (AMBROCIO) - Final, Complete 05/11/18 Gram Stain Result 3 (AMBROCIO) - Final, Complete 05/11/18 Gram Stain Result 4 (AMBROCIO) - Final, Complete Objective Assessment 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 Recurrent abdominal abscesses s/p drain on 05/11 with growth of mixed mireya, yeast and E. coli (R quinolones, amp, cefuroxime) - h/o IR drain on 04/21 with growth of Bacteroides, E. coli (R quinolones), Klebsiella and (yeast on GS) Leukocytosis - likely reactive in part to steroids and surgery on 05/15 Transaminitis - better Thrush - better DM s/p cystoscopy with bilateral stent placement, 05/15. Plan Plan of Care Cont Meropenem and Micafungin Mycelex kalyan Monitor WBC/temp am labs have been ordered Further ID workup on yeast requested, spoke with heraclio D/w MELINDA DUMONT,ALEXA Fry MD May 17, 2018 09:15
--- NOTE | 2018-05-17 09:42 | PDOC ---
SURGICAL PROGRESS NOTE Subjective Pt without c/o except some soreness, stefany some PO, increasing strength Vital Signs Vital Signs Date Time Temp Pulse Resp B/P (MAP) Pulse Ox O2 Delivery O2 Flow Rate FiO2 05/17/18 08:37 61 121/62 05/17/18 07:15 Room Air 05/17/18 07:00 98.5 18 94 98.5 I&O Intake and Output 05/17/18 07:00 Intake Total 1630 ml Output Total 850 ml Balance 780 ml Intake Oral 120 ml IV Total 755 ml Other 755 ml Output Urine Total 600 ml Gastric Drainage Total 250 ml PATIENT HAS A NAPIER: No General: Alert, Oriented X3, Cooperative, No acute distress Abdomen: Soft, No tenderness, Other (ostomy viable and fxn) Labs Laboratory Tests Test 05/15/18 12:24 05/15/18 14:40 05/15/18 15:00 05/15/18 17:01 Glucose (Fingerstick) 334 mg/dL (70-99) 325 mg/dL (70-99) 374 mg/dL (70-99) Sodium Level 134 mmol/L (136-145) Potassium Level 4.2 mmol/L (3.5-5.1) Chloride Level 98 mmol/L (98-107) Carbon Dioxide Level 28 mmol/L (21-32) Anion Gap 8 (6-14) Blood Urea Nitrogen 12 mg/dL (8-26) Creatinine 0.9 mg/dL (0.7-1.3) Estimated GFR (Cockcroft-Gault) 81.0 Glucose Level 361 mg/dL (70-99) Calcium Level 7.9 mg/dL (8.5-10.1) Phosphorus Level 3.2 mg/dL (2.6-4.7) Magnesium Level 1.5 mg/dL (1.8-2.4) Test 05/15/18 20:28 05/15/18 20:53 05/16/18 06:00 05/16/18 07:20 Glucose (Fingerstick) 512 mg/dL (70-99) 447 mg/dL (70-99) 266 mg/dL (70-99) White Blood Count 21.4 x10^3/uL (4.0-11.0) Red Blood Count 3.65 x10^6/uL (4.30-5.70) Hemoglobin 10.4 g/dL (13.0-17.5) Hematocrit 32.0 % (39.0-53.0) Mean Corpuscular Volume 88 fL (79-100) Mean Corpuscular Hemoglobin 29 pg (25-35) Mean Corpuscular Hemoglobin Concent 33 g/dL (31-37) Red Cell Distribution Width 15.1 % (11.5-14.5) Platelet Count 308 x10^3/uL (140-400) Neutrophils (%) (Auto) 82 % (31-73) Lymphocytes (%) (Auto) 11 % (24-48) Monocytes (%) (Auto) 7 % (0-9) Eosinophils (%) (Auto) 1 % (0-3) Basophils (%) (Auto) 0 % (0-3) Neutrophils # (Auto) 17.5 x10^3uL (1.8-7.7) Lymphocytes # (Auto) 2.2 x10^3/uL (1.0-4.8) Monocytes # (Auto) 1.5 x10^3/uL (0.0-1.1) Eosinophils # (Auto) 0.2 x10^3/uL (0.0-0.7) Basophils # (Auto) 0.0 x10^3/uL (0.0-0.2) Segmented Neutrophils % 82 % (35-66) Band Neutrophils % 1 % (0-9) Lymphocytes % 12 % (24-48) Monocytes % 5 % (0-10) Platelet Estimate Adequate (ADEQUATE) Sodium Level 134 mmol/L (136-145) Potassium Level 4.5 mmol/L (3.5-5.1) Chloride Level 100 mmol/L (98-107) Carbon Dioxide Level 27 mmol/L (21-32) Anion Gap 7 (6-14) Blood Urea Nitrogen 12 mg/dL (8-26) Creatinine 0.7 mg/dL (0.7-1.3) Estimated GFR (Cockcroft-Gault) 108.2 BUN/Creatinine Ratio 17 (6-20) Glucose Level 261 mg/dL (70-99) Calcium Level 7.4 mg/dL (8.5-10.1) Phosphorus Level 2.9 mg/dL (2.6-4.7) Magnesium Level 1.8 mg/dL (1.8-2.4) Total Bilirubin 0.4 mg/dL (0.2-1.0) Aspartate Amino Transf (AST/SGOT) 24 U/L (15-37) Alanine Aminotransferase (ALT/SGPT) 91 U/L (16-63) Alkaline Phosphatase 145 U/L (46-116) Total Protein 5.4 g/dL (6.4-8.2) Albumin 1.8 g/dL (3.4-5.0) Albumin/Globulin Ratio 0.5 (1.0-1.7) Triglycerides Level 99 mg/dL (0-150) Test 05/16/18 10:08 05/16/18 11:45 05/16/18 14:02 05/16/18 16:28 Glucose (Fingerstick) 363 mg/dL (70-99) 325 mg/dL (70-99) 141 mg/dL (70-99) 99 mg/dL (70-99) Test 05/16/18 20:42 05/17/18 00:45 05/17/18 05:55 05/17/18 07:31 Glucose (Fingerstick) 107 mg/dL (70-99) 154 mg/dL (70-99) 161 mg/dL (70-99) White Blood Count 30.1 x10^3/uL (4.0-11.0) Red Blood Count 3.54 x10^6/uL (4.30-5.70) Hemoglobin 10.2 g/dL (13.0-17.5) Hematocrit 30.8 % (39.0-53.0) Mean Corpuscular Volume 87 fL (79-100) Mean Corpuscular Hemoglobin 29 pg (25-35) Mean Corpuscular Hemoglobin Concent 33 g/dL (31-37) Red Cell Distribution Width 14.9 % (11.5-14.5) Platelet Count 318 x10^3/uL (140-400) Neutrophils (%) (Auto) 88 % (31-73) Lymphocytes (%) (Auto) 5 % (24-48) Monocytes (%) (Auto) 6 % (0-9) Eosinophils (%) (Auto) 0 % (0-3) Basophils (%) (Auto) 0 % (0-3) Neutrophils # (Auto) 26.6 x10^3uL (1.8-7.7) Lymphocytes # (Auto) 1.5 x10^3/uL (1.0-4.8) Monocytes # (Auto) 1.8 x10^3/uL (0.0-1.1) Eosinophils # (Auto) 0.1 x10^3/uL (0.0-0.7) Basophils # (Auto) 0.1 x10^3/uL (0.0-0.2) Sodium Level 132 mmol/L (136-145) Potassium Level 4.7 mmol/L (3.5-5.1) Chloride Level 96 mmol/L (98-107) Carbon Dioxide Level 29 mmol/L (21-32) Anion Gap 7 (6-14) Blood Urea Nitrogen 16 mg/dL (8-26) Creatinine 0.9 mg/dL (0.7-1.3) Estimated GFR (Cockcroft-Gault) 81.0 BUN/Creatinine Ratio 18 (6-20) Glucose Level 161 mg/dL (70-99) Calcium Level 7.9 mg/dL (8.5-10.1) Phosphorus Level 3.2 mg/dL (2.6-4.7) Magnesium Level 1.9 mg/dL (1.8-2.4) Total Bilirubin 0.4 mg/dL (0.2-1.0) Aspartate Amino Transf (AST/SGOT) 44 U/L (15-37) Alanine Aminotransferase (ALT/SGPT) 80 U/L (16-63) Alkaline Phosphatase 144 U/L (46-116) Total Protein 5.9 g/dL (6.4-8.2) Albumin 1.8 g/dL (3.4-5.0) Albumin/Globulin Ratio 0.4 (1.0-1.7) Laboratory Tests Test 05/16/18 10:08 05/16/18 11:45 05/16/18 14:02 05/16/18 16:28 Glucose (Fingerstick) 363 mg/dL (70-99) 325 mg/dL (70-99) 141 mg/dL (70-99) 99 mg/dL (70-99) Test 05/16/18 20:42 05/17/18 00:45 05/17/18 05:55 05/17/18 07:31 Glucose (Fingerstick) 107 mg/dL (70-99) 154 mg/dL (70-99) 161 mg/dL (70-99) White Blood Count 30.1 x10^3/uL (4.0-11.0) Red Blood Count 3.54 x10^6/uL (4.30-5.70) Hemoglobin 10.2 g/dL (13.0-17.5) Hematocrit 30.8 % (39.0-53.0) Mean Corpuscular Volume 87 fL (79-100) Mean Corpuscular Hemoglobin 29 pg (25-35) Mean Corpuscular Hemoglobin Concent 33 g/dL (31-37) Red Cell Distribution Width 14.9 % (11.5-14.5) Platelet Count 318 x10^3/uL (140-400) Neutrophils (%) (Auto) 88 % (31-73) Lymphocytes (%) (Auto) 5 % (24-48) Monocytes (%) (Auto) 6 % (0-9) Eosinophils (%) (Auto) 0 % (0-3) Basophils (%) (Auto) 0 % (0-3) Neutrophils # (Auto) 26.6 x10^3uL (1.8-7.7) Lymphocytes # (Auto) 1.5 x10^3/uL (1.0-4.8) Monocytes # (Auto) 1.8 x10^3/uL (0.0-1.1) Eosinophils # (Auto) 0.1 x10^3/uL (0.0-0.7) Basophils # (Auto) 0.1 x10^3/uL (0.0-0.2) Sodium Level 132 mmol/L (136-145) Potassium Level 4.7 mmol/L (3.5-5.1) Chloride Level 96 mmol/L (98-107) Carbon Dioxide Level 29 mmol/L (21-32) Anion Gap 7 (6-14) Blood Urea Nitrogen 16 mg/dL (8-26) Creatinine 0.9 mg/dL (0.7-1.3) Estimated GFR (Cockcroft-Gault) 81.0 BUN/Creatinine Ratio 18 (6-20) Glucose Level 161 mg/dL (70-99) Calcium Level 7.9 mg/dL (8.5-10.1) Phosphorus Level 3.2 mg/dL (2.6-4.7) Magnesium Level 1.9 mg/dL (1.8-2.4) Total Bilirubin 0.4 mg/dL (0.2-1.0) Aspartate Amino Transf (AST/SGOT) 44 U/L (15-37) Alanine Aminotransferase (ALT/SGPT) 80 U/L (16-63) Alkaline Phosphatase 144 U/L (46-116) Total Protein 5.9 g/dL (6.4-8.2) Albumin 1.8 g/dL (3.4-5.0) Albumin/Globulin Ratio 0.4 (1.0-1.7) Problem List s/p xlap OOB ADAT cont supportive care LUIZA JOHNSON MD May 17, 2018 09:42
--- NOTE | 2018-05-17 10:07 | PDOC ---
PROGRESS NOTES Chief Complaint Chief Complaint Abdominal abscess, perf? status post surgery to 05/15/17-now with indwelling colostomy Poor by mouth on TPN Postop abdominal pain on [employer] Leukocytosis/sepsis-with ID on board Anemia of chronic disease- hemoglobin 10 DM 2 adeq control MIld encephalopathy post op-day #2 History of Present Illness History of Present Illness Has some minor confusion today He lost a day, he claims Surgery was 2 days ago, he is pressing the [employer] pump-he is on antibiotics per ID- he is also on some IV fluids Hemoglobin A1c pending KUB ordered today by GS-read is pending No fevers but WBC 30 with a clean UA on admission and no steroids Intra-Op Plan: check a UA, incentive spirometry (leukocytosis 30) Monitor leukocytosis Follow ID recs Follow-up KUB Too early to take off [employer], continue [employer], continue TPN-has left indwelling PICC Dw with PT might need home health on discharge-patient completely ambulatory without assistive device prior to admission Vitals Vitals Vital Signs Date Time Temp Pulse Resp B/P (MAP) Pulse Ox O2 Delivery O2 Flow Rate FiO2 05/17/18 08:37 61 121/62 05/17/18 07:15 Room Air 05/17/18 07:00 98.5 18 94 98.5 Physical Exam Physical Exam GENERAL: Propped up in bed, alert, NAD HEENT: Pupils equal and reactive. Oral cavity, pharynx clear, dentures NECK: Supple, no JVD. LUNGS: Clear to auscultation, HEART: S1, S2. ABDOMEN: Mildly distended, soft, tender to light palpation, hypoactive BS, dressing dry. ostomy bag sealed. JEREMY LLQ out : Ornelas in place EXTREMITIES: No clubbing, cyanosis or gross edema. SKIN: Warm to touch without signs of rash. NEUROLOGIC: Alert, nonfocal and appropriate. RUE-PICC (05/13) wo signs of complications General: Alert, Oriented X3, Cooperative, No acute distress Lungs: Clear, Wheezing Abdomen: Soft, No tenderness, Other (ostomy viable and fxn) Extremities: No clubbing, No cyanosis, Normal pulses Skin: No rashes, No breakdown, No significant lesion Labs LABS Laboratory Tests Test 05/16/18 10:08 05/16/18 11:45 05/16/18 14:02 05/16/18 16:28 Glucose (Fingerstick) 363 mg/dL (70-99) 325 mg/dL (70-99) 141 mg/dL (70-99) 99 mg/dL (70-99) Test 05/16/18 20:42 05/17/18 00:45 05/17/18 05:55 05/17/18 07:31 Glucose (Fingerstick) 107 mg/dL (70-99) 154 mg/dL (70-99) 161 mg/dL (70-99) White Blood Count 30.1 x10^3/uL (4.0-11.0) Red Blood Count 3.54 x10^6/uL (4.30-5.70) Hemoglobin 10.2 g/dL (13.0-17.5) Hematocrit 30.8 % (39.0-53.0) Mean Corpuscular Volume 87 fL (79-100) Mean Corpuscular Hemoglobin 29 pg (25-35) Mean Corpuscular Hemoglobin Concent 33 g/dL (31-37) Red Cell Distribution Width 14.9 % (11.5-14.5) Platelet Count 318 x10^3/uL (140-400) Neutrophils (%) (Auto) 88 % (31-73) Lymphocytes (%) (Auto) 5 % (24-48) Monocytes (%) (Auto) 6 % (0-9) Eosinophils (%) (Auto) 0 % (0-3) Basophils (%) (Auto) 0 % (0-3) Neutrophils # (Auto) 26.6 x10^3uL (1.8-7.7) Lymphocytes # (Auto) 1.5 x10^3/uL (1.0-4.8) Monocytes # (Auto) 1.8 x10^3/uL (0.0-1.1) Eosinophils # (Auto) 0.1 x10^3/uL (0.0-0.7) Basophils # (Auto) 0.1 x10^3/uL (0.0-0.2) Sodium Level 132 mmol/L (136-145) Potassium Level 4.7 mmol/L (3.5-5.1) Chloride Level 96 mmol/L (98-107) Carbon Dioxide Level 29 mmol/L (21-32) Anion Gap 7 (6-14) Blood Urea Nitrogen 16 mg/dL (8-26) Creatinine 0.9 mg/dL (0.7-1.3) Estimated GFR (Cockcroft-Gault) 81.0 BUN/Creatinine Ratio 18 (6-20) Glucose Level 161 mg/dL (70-99) Calcium Level 7.9 mg/dL (8.5-10.1) Phosphorus Level 3.2 mg/dL (2.6-4.7) Magnesium Level 1.9 mg/dL (1.8-2.4) Total Bilirubin 0.4 mg/dL (0.2-1.0) Aspartate Amino Transf (AST/SGOT) 44 U/L (15-37) Alanine Aminotransferase (ALT/SGPT) 80 U/L (16-63) Alkaline Phosphatase 144 U/L (46-116) Total Protein 5.9 g/dL (6.4-8.2) Albumin 1.8 g/dL (3.4-5.0) Albumin/Globulin Ratio 0.4 (1.0-1.7) Review of Systems Review of Systems Postop abdominal pain otherwise rest of ROS negative Comment Review of Relevant I have reviewed the following items mukesh (where applicable) has been applied. Labs Laboratory Tests Test 05/15/18 12:24 05/15/18 14:40 05/15/18 15:00 05/15/18 17:01 Glucose (Fingerstick) 334 mg/dL (70-99) 325 mg/dL (70-99) 374 mg/dL (70-99) Sodium Level 134 mmol/L (136-145) Potassium Level 4.2 mmol/L (3.5-5.1) Chloride Level 98 mmol/L (98-107) Carbon Dioxide Level 28 mmol/L (21-32) Anion Gap 8 (6-14) Blood Urea Nitrogen 12 mg/dL (8-26) Creatinine 0.9 mg/dL (0.7-1.3) Estimated GFR (Cockcroft-Gault) 81.0 Glucose Level 361 mg/dL (70-99) Calcium Level 7.9 mg/dL (8.5-10.1) Phosphorus Level 3.2 mg/dL (2.6-4.7) Magnesium Level 1.5 mg/dL (1.8-2.4) Test 05/15/18 20:28 05/15/18 20:53 05/16/18 06:00 05/16/18 07:20 Glucose (Fingerstick) 512 mg/dL (70-99) 447 mg/dL (70-99) 266 mg/dL (70-99) White Blood Count 21.4 x10^3/uL (4.0-11.0) Red Blood Count 3.65 x10^6/uL (4.30-5.70) Hemoglobin 10.4 g/dL (13.0-17.5) Hematocrit 32.0 % (39.0-53.0) Mean Corpuscular Volume 88 fL (79-100) Mean Corpuscular Hemoglobin 29 pg (25-35) Mean Corpuscular Hemoglobin Concent 33 g/dL (31-37) Red Cell Distribution Width 15.1 % (11.5-14.5) Platelet Count 308 x10^3/uL (140-400) Neutrophils (%) (Auto) 82 % (31-73) Lymphocytes (%) (Auto) 11 % (24-48) Monocytes (%) (Auto) 7 % (0-9) Eosinophils (%) (Auto) 1 % (0-3) Basophils (%) (Auto) 0 % (0-3) Neutrophils # (Auto) 17.5 x10^3uL (1.8-7.7) Lymphocytes # (Auto) 2.2 x10^3/uL (1.0-4.8) Monocytes # (Auto) 1.5 x10^3/uL (0.0-1.1) Eosinophils # (Auto) 0.2 x10^3/uL (0.0-0.7) Basophils # (Auto) 0.0 x10^3/uL (0.0-0.2) Segmented Neutrophils % 82 % (35-66) Band Neutrophils % 1 % (0-9) Lymphocytes % 12 % (24-48) Monocytes % 5 % (0-10) Platelet Estimate Adequate (ADEQUATE) Sodium Level 134 mmol/L (136-145) Potassium Level 4.5 mmol/L (3.5-5.1) Chloride Level 100 mmol/L (98-107) Carbon Dioxide Level 27 mmol/L (21-32) Anion Gap 7 (6-14) Blood Urea Nitrogen 12 mg/dL (8-26) Creatinine 0.7 mg/dL (0.7-1.3) Estimated GFR (Cockcroft-Gault) 108.2 BUN/Creatinine Ratio 17 (6-20) Glucose Level 261 mg/dL (70-99) Calcium Level 7.4 mg/dL (8.5-10.1) Phosphorus Level 2.9 mg/dL (2.6-4.7) Magnesium Level 1.8 mg/dL (1.8-2.4) Total Bilirubin 0.4 mg/dL (0.2-1.0) Aspartate Amino Transf (AST/SGOT) 24 U/L (15-37) Alanine Aminotransferase (ALT/SGPT) 91 U/L (16-63) Alkaline Phosphatase 145 U/L (46-116) Total Protein 5.4 g/dL (6.4-8.2) Albumin 1.8 g/dL (3.4-5.0) Albumin/Globulin Ratio 0.5 (1.0-1.7) Triglycerides Level 99 mg/dL (0-150) Test 05/16/18 10:08 05/16/18 11:45 05/16/18 14:02 05/16/18 16:28 Glucose (Fingerstick) 363 mg/dL (70-99) 325 mg/dL (70-99) 141 mg/dL (70-99) 99 mg/dL (70-99) Test 05/16/18 20:42 05/17/18 00:45 05/17/18 05:55 05/17/18 07:31 Glucose (Fingerstick) 107 mg/dL (70-99) 154 mg/dL (70-99) 161 mg/dL (70-99) White Blood Count 30.1 x10^3/uL (4.0-11.0) Red Blood Count 3.54 x10^6/uL (4.30-5.70) Hemoglobin 10.2 g/dL (13.0-17.5) Hematocrit 30.8 % (39.0-53.0) Mean Corpuscular Volume 87 fL (79-100) Mean Corpuscular Hemoglobin 29 pg (25-35) Mean Corpuscular Hemoglobin Concent 33 g/dL (31-37) Red Cell Distribution Width 14.9 % (11.5-14.5) Platelet Count 318 x10^3/uL (140-400) Neutrophils (%) (Auto) 88 % (31-73) Lymphocytes (%) (Auto) 5 % (24-48) Monocytes (%) (Auto) 6 % (0-9) Eosinophils (%) (Auto) 0 % (0-3) Basophils (%) (Auto) 0 % (0-3) Neutrophils # (Auto) 26.6 x10^3uL (1.8-7.7) Lymphocytes # (Auto) 1.5 x10^3/uL (1.0-4.8) Monocytes # (Auto) 1.8 x10^3/uL (0.0-1.1) Eosinophils # (Auto) 0.1 x10^3/uL (0.0-0.7) Basophils # (Auto) 0.1 x10^3/uL (0.0-0.2) Sodium Level 132 mmol/L (136-145) Potassium Level 4.7 mmol/L (3.5-5.1) Chloride Level 96 mmol/L (98-107) Carbon Dioxide Level 29 mmol/L (21-32) Anion Gap 7 (6-14) Blood Urea Nitrogen 16 mg/dL (8-26) Creatinine 0.9 mg/dL (0.7-1.3) Estimated GFR (Cockcroft-Gault) 81.0 BUN/Creatinine Ratio 18 (6-20) Glucose Level 161 mg/dL (70-99) Calcium Level 7.9 mg/dL (8.5-10.1) Phosphorus Level 3.2 mg/dL (2.6-4.7) Magnesium Level 1.9 mg/dL (1.8-2.4) Total Bilirubin 0.4 mg/dL (0.2-1.0) Aspartate Amino Transf (AST/SGOT) 44 U/L (15-37) Alanine Aminotransferase (ALT/SGPT) 80 U/L (16-63) Alkaline Phosphatase 144 U/L (46-116) Total Protein 5.9 g/dL (6.4-8.2) Albumin 1.8 g/dL (3.4-5.0) Albumin/Globulin Ratio 0.4 (1.0-1.7) Laboratory Tests Test 05/16/18 10:08 05/16/18 11:45 05/16/18 14:02 05/16/18 16:28 Glucose (Fingerstick) 363 mg/dL (70-99) 325 mg/dL (70-99) 141 mg/dL (70-99) 99 mg/dL (70-99) Test 05/16/18 20:42 05/17/18 00:45 05/17/18 05:55 05/17/18 07:31 Glucose (Fingerstick) 107 mg/dL (70-99) 154 mg/dL (70-99) 161 mg/dL (70-99) White Blood Count 30.1 x10^3/uL (4.0-11.0) Red Blood Count 3.54 x10^6/uL (4.30-5.70) Hemoglobin 10.2 g/dL (13.0-17.5) Hematocrit 30.8 % (39.0-53.0) Mean Corpuscular Volume 87 fL (79-100) Mean Corpuscular Hemoglobin 29 pg (25-35) Mean Corpuscular Hemoglobin Concent 33 g/dL (31-37) Red Cell Distribution Width 14.9 % (11.5-14.5) Platelet Count 318 x10^3/uL (140-400) Neutrophils (%) (Auto) 88 % (31-73) Lymphocytes (%) (Auto) 5 % (24-48) Monocytes (%) (Auto) 6 % (0-9) Eosinophils (%) (Auto) 0 % (0-3) Basophils (%) (Auto) 0 % (0-3) Neutrophils # (Auto) 26.6 x10^3uL (1.8-7.7) Lymphocytes # (Auto) 1.5 x10^3/uL (1.0-4.8) Monocytes # (Auto) 1.8 x10^3/uL (0.0-1.1) Eosinophils # (Auto) 0.1 x10^3/uL (0.0-0.7) Basophils # (Auto) 0.1 x10^3/uL (0.0-0.2) Sodium Level 132 mmol/L (136-145) Potassium Level 4.7 mmol/L (3.5-5.1) Chloride Level 96 mmol/L (98-107) Carbon Dioxide Level 29 mmol/L (21-32) Anion Gap 7 (6-14) Blood Urea Nitrogen 16 mg/dL (8-26) Creatinine 0.9 mg/dL (0.7-1.3) Estimated GFR (Cockcroft-Gault) 81.0 BUN/Creatinine Ratio 18 (6-20) Glucose Level 161 mg/dL (70-99) Calcium Level 7.9 mg/dL (8.5-10.1) Phosphorus Level 3.2 mg/dL (2.6-4.7) Magnesium Level 1.9 mg/dL (1.8-2.4) Total Bilirubin 0.4 mg/dL (0.2-1.0) Aspartate Amino Transf (AST/SGOT) 44 U/L (15-37) Alanine Aminotransferase (ALT/SGPT) 80 U/L (16-63) Alkaline Phosphatase 144 U/L (46-116) Total Protein 5.9 g/dL (6.4-8.2) Albumin 1.8 g/dL (3.4-5.0) Albumin/Globulin Ratio 0.4 (1.0-1.7) Microbiology 05/10/18 Blood Culture - Final, Complete NO GROWTH AFTER 5 DAYS 05/11/18 Anaerobic/Aerobic Culture - Final, Complete 05/11/18 Anaerobic Culture Result 1 (AMBROCIO) - Final, Complete 05/11/18 Aerobic Culture - Final, Complete 05/11/18 Aerobic Culture Result 1 (AMBROCIO) - Final, Complete 05/11/18 Aerobic Culture Result 2 (AMBROCIO) - Final, Complete 05/11/18 Aerobic Culture Result 3 (AMBROCIO) - Final, Complete 05/11/18 Antimicrobic Susceptibility - Final, Complete 05/11/18 Gram Stain - Final, Complete 05/11/18 Gram Stain Result 1 (AMBROCIO) - Final, Complete 05/11/18 Gram Stain Result 2 (AMBROCIO) - Final, Complete 05/11/18 Gram Stain Result 3 (AMBROCIO) - Final, Complete 05/11/18 Gram Stain Result 4 (AMBROCIO) - Final, Complete Medications Current Medications Hyoscyamine (Anaspaz) 0.125 mg ONCE ONCE PO Last administered on 05/10/18at 12: 07; Start 05/10/18 at 11:30; Stop 05/10/18 at 11:32; Status DC Ondansetron HCl (Zofran) 4 mg 1X ONCE IV Last administered on 05/10/18 12:09 ; Start 05/10/18 at 11:30; Stop 05/10/18 at 11:32; Status DC Sodium Chloride 500 ml @ 500 mls/hr 1X ONCE IV Last administered on at 12:04; Start 05/10/18 at 11:30; Stop 05/10/18 at 12:29; Status DC Iohexol (Omnipaque 240 Mg/ml) 30 ml 1X ONCE PO Last administered on 05/10/18at 12:00; Start 05/10/18 at 12:00; Stop 05/10/18 at 12:01; Status DC Iohexol (Omnipaque 300 Mg/ml) 75 ml 1X ONCE IV Last administered on 05/10/18at 13:08; Start 05/10/18 at 12:00; Stop 05/10/18 at 12:01; Status DC Info (CONTRAST GIVEN -- Rx MONITORING) 1 each PRN DAILY PRN MC SEE COMMENTS; Start 05/10/18 at 12:00; Stop 05/12/18 at 11:59; Status DC Ciprofloxacin/ Dextrose 200 ml @ 200 mls/hr 1X ONCE IV Last administered on at 15:58; Start 05/10/18 at 14:30; Stop 05/10/18 at 15:29; Status DC Metronidazole 100 ml @ 100 mls/hr 1X ONCE IV Last administered on 05/10/18at 15:57; Start 05/10/18 at 14:30; Stop 05/10/18 at 15:29; Status DC Ondansetron HCl (Zofran) 4 mg PRN Q8HRS PRN IV NAUSEA/VOMITING; Start 05/10/18 at 14:45; Stop 05/11/18 at 14:44; Status DC Morphine Sulfate (Morphine Sulfate) 2 mg PRN Q2HR PRN IV PAIN Last administered on 05/10/18 16:29; Start 05/10/18 at 14:45; Stop 05/10/18 at 17:27 ; Status DC Sodium Chloride 1,000 ml @ 125 mls/hr Q8H IV Last administered on 05/11/18 08 :26; Start 05/10/18 at 15:00; Stop 05/11/18 at 14:59; Status DC Acetaminophen (Tylenol) 650 mg PRN Q4HRS PRN PO FEVER; Start 05/10/18 at 14:45 ; Stop 05/11/18 at 14:44; Status DC Ciprofloxacin/ Dextrose 200 ml @ 200 mls/hr Q12HR IV ; Start 05/11/18 at 09:00 ; Stop 05/11/18 at 09:00; Status DC Metronidazole 100 ml @ 100 mls/hr Q12HR IV ; Start 05/10/18 at 21:00; Stop at 21:00; Status DC Morphine Sulfate (Morphine Sulfate) 4 mg PRN Q2HR PRN IV PAIN Last administered on 05/14/18at 22:04; Start 05/10/18 at 17:30; Stop 05/15/18 at 12:07 ; Status DC Fentanyl Citrate (Fentanyl 2ml Vial) 50 mcg 1X ONCE IV Last administered on at 17:32; Start 05/10/18 at 17:30; Stop 05/10/18 at 17:31; Status DC Ketorolac Tromethamine (Toradol 15mg Vial) 15 mg 1X ONCE IV Last administered on 05/10/18at 17:36; Start 05/10/18 at 17:30; Stop 05/10/18 at 17:31; Status DC Enoxaparin Sodium (Lovenox Per Pharmacy Prophylaxis Dosing) 1 each PRN DAILY PRN MC SEE COMMENTS; Start 05/10/18 at 17:45; Status Cancel Metronidazole 100 ml @ 100 mls/hr Q12HR IV ; Start 05/11/18 at 09:00; Stop at 09:00; Status DC Enoxaparin Sodium (Lovenox 40mg Syringe) 40 mg QHS SQ Last administered on 05/10at 21:33; Start 05/10/18 at 21:00; Stop 05/10/18 at 21:37; Status DC Zolpidem Tartrate (Ambien) 5 mg PRN QHS PRN PO INSOMNIA Last administered on at 23:32; Start 05/10/18 at 23:15 Meropenem 500 mg/ Sodium Chloride 50 ml @ 100 mls/hr Q6HRS IV Last administered on 05/17/18at 05:54; Start 05/11/18 at 06:30 Linezolid/Dextrose 300 ml @ 300 mls/hr Q12HR IV Last administered on 09:54; Start 05/11/18 at 09:00 Micafungin Sodium 100 mg/Dextrose 100 ml @ 100 mls/hr Q24H IV Last administered on 05/17/18 08:35; Start 05/11/18 at 08:00 Clotrimazole (Mycelex) 10 mg 5XDAY MM Last administered on 05/17/18 09:57; Start 05/11/18 at 08:00 Lidocaine/Sodium Bicarbonate (Buffered Lidocaine 1%) 3 ml STK-MED ONCE .ROUTE ; Start 05/11/18 at 13:28; Stop 05/11/18 at 13:29; Status DC Insulin Human Lispro (HumaLOG) 0-5 UNITS TIDWMEALS SQ Last administered on 05/11 17:00; Start 05/11/18 at 17:00; Stop 05/11/18 at 21:35; Status DC Dextrose (Dextrose 50%-Water Syringe) 12.5 gm PRN Q15MIN PRN IV SEE COMMENTS; Start 05/11/18 at 14:15 Midazolam HCl (Versed) 2 mg STK-MED ONCE .ROUTE ; Start 05/11/18 at 14:19; Stop 05/11/18 at 14:20; Status DC Fentanyl Citrate (Fentanyl 2ml Vial) 100 mcg STK-MED ONCE .ROUTE ; Start at 14:19; Stop 05/11/18 at 14:20; Status DC Lidocaine/Sodium Bicarbonate (Buffered Lidocaine 1%) 6 ml 1X ONCE IJ Last administered on 05/11/18at 14:36; Start 05/11/18 at 14:45; Stop 05/11/18 at 14:46 ; Status DC Midazolam HCl (Versed) 1 mg 1X ONCE IV Last administered on 05/11/18 14:37; Start 05/11/18 at 14:45; Stop 05/11/18 at 14:46; Status DC Fentanyl Citrate (Fentanyl 2ml Vial) 50 mcg 1X ONCE IV Last administered on 14:37; Start 05/11/18 at 14:45; Stop 05/11/18 at 14:46; Status DC Enoxaparin Sodium (Lovenox Per Pharmacy Prophylaxis Dosing) 1 each PRN DAILY PRN MC SEE COMMENTS; Start 05/12/18 at 09:00; Stop 05/15/18 at 12:07; Status DC Enoxaparin Sodium (Lovenox 40mg Syringe) 40 mg Q24H SQ Last administered on at 21:19; Start 05/11/18 at 21:00; Stop 05/13/18 at 22:00; Status DC Oxycodone/ Acetaminophen (Percocet 5/325) 1 tab PRN Q4HRS PRN PO PAIN Last administered on 05/11/18at 21:12; Start 05/11/18 at 16:30 Insulin Human Lispro (HumaLOG) 0-5 UNITS QIDACHS SQ Last administered on at 22:01; Start 05/11/18 at 21:40; Stop 05/12/18 at 07:35; Status DC Ondansetron HCl (Zofran) 4 mg PRN Q6HRS PRN IV NAUSEA/VOMITING 1ST CHOICE Last administered on 05/13/18at 06:34; Start 05/12/18 at 06:15; Stop 05/15/18 at 12:07 ; Status DC Insulin Human Lispro (HumaLOG) 0-7 UNITS QIDACHS SQ Last administered on 08:45; Start 05/12/18 at 08:00; Stop 05/17/18 at 08:23; Status DC Lactobacillus Rhamnosus (Culturelle) 1 cap BID PO Last administered on at 08:37; Start 05/12/18 at 21:00 Info (Tpn Per Pharmacy) 1 each PRN DAILY PRN MC SEE COMMENTS Last administered on 05/16/18at 12:55; Start 05/12/18 at 15:30 Pantoprazole Sodium (PROTONIX VIAL for IV PUSH) 40 mg DAILYAC IVP Last administered on 05/17/18 08:35; Start 05/13/18 at 07:30 Amlodipine Besylate (Norvasc) 5 mg DAILY PO Last administered on 05/17/18 08: 36; Start 05/13/18 at 09:00 Carvedilol (Coreg) 12.5 mg BIDWMEALS PO Last administered on 05/13/18at 08:19; Start 05/13/18 at 08:15; Stop 05/13/18 at 16:24; Status DC Aspirin (Ecotrin) 81 mg DAILYWBKFT PO ; Start 05/14/18 at 08:00; Status UNV Atorvastatin Calcium (Lipitor) 40 mg QHS PO ; Start 05/13/18 at 21:00; Stop at 21:00; Status DC Vitamin D (Vitamin D3) 2,000 unit DAILY PO Last administered on 05/17/18at 08:37 ; Start 05/13/18 at 10:00 Insulin Glargine (Lantus) 12 units DAILY10 SQ Last administered on 05/13/18at 12 :09; Start 05/13/18 at 10:00; Stop 05/13/18 at 21:39; Status DC Lactobacillus Rhamnosus (Culturelle) 1 cap BID PO ; Start 05/13/18 at 10:00; Status Cancel Saliva Substitute (Biotene Moisturizing Mouth) 2 spray PRN Q15MIN PRN PO DRY MOUTH; Start 05/13/18 at 09:15 Ticagrelor (Brilinta) 90 mg BID PO ; Start 05/13/18 at 21:00; Status UNV Non-Formulary Medication (Budesonide/ Formoterol Fumarate (Symbicort 80-4.5 Mcg Inhaler)) 1 puff BID IH ; Start 05/13/18 at 21:00; Status UNV Non-Formulary Medication (Carisoprodol (Soma)) 1 tab BID PO ; Start 05/13/18 at 21:00; Status UNV Glimepiride (Amaryl) 4 mg DAILY PO Last administered on 05/17/18at 08:37; Start 05/13/18 at 10:00 Magnesium Oxide (Magnesium Oxide) 200 mg DAILY PO Last administered on at 08:37; Start 05/13/18 at 10:00 Metformin HCl (Glucophage) 500 mg BIDWMEALS PO ; Start 05/13/18 at 10:00; Stop 05/13/18 at 11:49; Status DC Non-Formulary Medication (Omeprazole ) 1 cap DAILY PO ; Start 05/14/18 at 09:00 ; Status UNV Insulin Human Lispro (HumaLOG) 8 units 1X ONCE SQ Last administered on at 12:08; Start 05/13/18 at 10:00; Stop 05/13/18 at 10:02; Status DC Info (Tpn Per Pharmacy) 1 each PRN DAILY PRN MC SEE COMMENTS; Start 05/13/18 at 09:30; Status Cancel Albuterol Sulfate (Ventolin Neb Soln) 2.5 mg Q6HRS NEB Last administered on at 13:02; Start 05/13/18 at 12:00; Stop 05/13/18 at 13:49; Status DC Budesonide (Pulmicort) 0.5 mg RTBID NEB ; Start 05/13/18 at 10:00; Stop at 17:25; Status DC Lidocaine/Sodium Bicarbonate (Buffered Lidocaine 1%) 3 ml STK-MED ONCE .ROUTE ; Start 05/13/18 at 10:56; Stop 05/13/18 at 10:57; Status DC Lidocaine/Sodium Bicarbonate (Buffered Lidocaine 1%) 3 ml 1X ONCE INJ Last administered on 05/13/18at 11:18; Start 05/13/18 at 11:15; Stop 05/13/18 at 11:31 ; Status DC Iodixanol (Visipaque 320) 50 ml STK-MED ONCE .ROUTE ; Start 05/13/18 at 11:20; Stop 05/13/18 at 11:21; Status DC Iodixanol (Visipaque 320) 50 ml STK-MED ONCE .ROUTE ; Start 05/13/18 at 11:21; Stop 05/13/18 at 11:22; Status DC Iodixanol (Visipaque 320) 50 ml 1X ONCE IV Last administered on 05/13/18at 11: 40; Start 05/13/18 at 11:45; Stop 05/13/18 at 11:48; Status DC Info (CONTRAST GIVEN -- Rx MONITORING) 1 each PRN DAILY PRN MC SEE COMMENTS; Start 05/13/18 at 12:00; Stop 05/15/18 at 11:59; Status DC Metformin HCl (Glucophage) 500 mg BIDWMEALS PO Last administered on 05/17/18at 08:37; Start 05/15/18 at 17:00 Magnesium Sulfate 50 ml @ 25 mls/hr 1X ONCE IV Last administered on 05/13/18at 13:22; Start 05/13/18 at 13:00; Stop 05/13/18 at 14:59; Status DC Sodium Phosphate 20 mmol/Dextrose 256.6667 ml @ 64.167 m... 1X ONCE IV Last administered on 05/13/18at 13:23; Start 05/13/18 at 13:00; Stop 05/13/18 at 16:59 ; Status DC Sodium Chloride 90 meq/Potassium Chloride 50 meq/ Potassium Phosphate 25 mmol/ Magnesium Sulfate 20 meq/Calcium Gluconate 10 meq/ Multivitamins 10 ml/Chromium / Copper/Manganese/ Seleni/Zn 1 ml/ Total Parenteral Nutrition/Amino Acids/ Dextrose/ Fat Emulsion Intravenous 1,512 ml @ 63 mls/hr TPN CONT IV Last administered on 05/13/18at 21:18; Start 05/13/18 at 22:00; Stop 05/14/18 at 21:59 ; Status DC Enoxaparin Sodium (Lovenox 40mg Syringe) 40 mg Q24H SQ ; Start 05/15/18 at 09:00 ; Stop 05/15/18 at 12:06; Status DC Albuterol Sulfate (Ventolin Neb Soln) 2.5 mg PRN Q6HRS PRN NEB SHORTNESS OF BREATH; Start 05/13/18 at 14:00 Aspirin (Ecotrin) 81 mg DAILYWBKFT PO Last administered on 05/17/18at 08:35; Start 05/13/18 at 17:30 Metoprolol Tartrate (Lopressor) 50 mg BID PO Last administered on 05/17/18at 08: 37; Start 05/13/18 at 21:00 Magnesium Sulfate/ Dextrose 100 ml @ 25 mls/hr 1X ONCE IV ; Start 05/13/18 at 18:00; Stop 05/13/18 at 21:59; Status UNV Insulin Glargine (Lantus) 14 units DAILY10 SQ Last administered on 05/14/18at 10 :26; Start 05/14/18 at 10:00; Stop 05/14/18 at 10:56; Status DC Insulin Human Lispro (HumaLOG) 5 units TIDWMEALS SQ Last administered on at 08:45; Start 05/14/18 at 08:00 Insulin Human Lispro (HumaLOG) 17 units 1X ONCE SQ Last administered on at 08:28; Start 05/14/18 at 08:30; Stop 05/14/18 at 08:31; Status DC Insulin Human Lispro (HumaLOG) 26 units 1X ONCE SQ Last administered on at 11:09; Start 05/14/18 at 11:00; Stop 05/14/18 at 11:01; Status DC Insulin Glargine (Lantus) 20 units DAILY10 SQ Last administered on 05/15/18at 13 :06; Start 05/15/18 at 10:00; Stop 05/15/18 at 15:08; Status DC Insulin Human Lispro (HumaLOG) 9 units 1X ONCE SQ Last administered on at 12:29; Start 05/14/18 at 12:15; Stop 05/14/18 at 12:16; Status DC Sodium Chloride 120 meq/Potassium Chloride 20 meq/ Potassium Phosphate 30 mmol/ Magnesium Sulfate 20 meq/Calcium Gluconate 5 meq/ Multivitamins 10 ml/Chromium/ Copper/Manganese/ Seleni/Zn 1 ml/ Total Parenteral Nutrition/Amino Acids/ Dextrose/ Fat Emulsion Intravenous 1,512 ml @ 63 mls/hr TPN CONT IV Last administered on 05/14/18at 21:39; Start 05/14/18 at 22:00; Stop 05/15/18 at 21:59 ; Status DC Morphine Sulfate (Morphine Sulfate) 1 mg PRN Q10MIN PRN IV SEVERE PAIN Last administered on 05/12/18at 12:35; Start 05/15/18 at 07:00; Stop 05/16/18 at 06:59 ; Status DC Ringer's Solution 1,000 ml @ 30 mls/hr Q24H IV ; Start 05/15/18 at 07:00; Stop 05/15/18 at 18:59; Status DC Lidocaine HCl (Xylocaine-Mpf 1% 2ml Vial) 2 ml PRN 1X PRN ID IV START; Start at 07:00; Stop 05/16/18 at 06:59; Status DC Hydromorphone HCl (Dilaudid) 0.5 mg PRN Q10MIN PRN IV SEV PAIN, Second choice; Start 05/15/18 at 07:00; Stop 05/16/18 at 06:59; Status DC Prochlorperazine Edisylate (Compazine) 5 mg PACU PRN PRN IV NAUSEA, MRX1 Last administered on 05/15/18at 12:35; Start 05/15/18 at 07:00; Stop 05/16/18 at 06:59 ; Status DC Insulin Human Lispro (HumaLOG) 2 units 1X ONCE SQ ; Start 05/14/18 at 21:45; Stop 05/14/18 at 21:50; Status DC Bupivacaine HCl/ Epinephrine Bitart (Sensorcain-Mpf Epi 0.5%-1:[id number]) 30 ml STK -MED ONCE .ROUTE Last administered on 05/15/18at 09:19; Start 05/15/18 at 07:04 ; Stop 05/15/18 at 07:05; Status DC Fentanyl Citrate (Fentanyl 5ml Vial) 250 mcg STK-MED ONCE .ROUTE ; Start at 07:21; Stop 05/15/18 at 07:22; Status DC Rocuronium [place] (Zemuron) 50 mg STK-MED ONCE .ROUTE ; Start 05/15/18 at 07:21 ; Stop 05/15/18 at 07:22; Status DC Dexamethasone Sodium Phosphate (Decadron) 20 mg STK-MED ONCE .ROUTE ; Start at 07:26; Stop 05/15/18 at 07:27; Status DC Ondansetron HCl (Zofran) 4 mg STK-MED ONCE .ROUTE ; Start 05/15/18 at 07:26; Stop 05/15/18 at 07:27; Status DC Propofol 20 ml @ As Directed STK-MED ONCE IV ; Start 05/15/18 at 07:26; Stop at 07:27; Status DC Lidocaine HCl (Lidocaine Pf 2% Vial) 5 ml STK-MED ONCE .ROUTE ; Start 05/15/18 at 07:26; Stop 05/15/18 at 07:27; Status DC Ephedrine Sulfate (Akovaz) 50 mg STK-MED ONCE .ROUTE ; Start 05/15/18 at 07:57; Stop 05/15/18 at 07:58; Status DC Rocuronium [place] (Zemuron) 50 mg STK-MED ONCE .ROUTE ; Start 05/15/18 at 09:13 ; Stop 05/15/18 at 09:14; Status DC Glycopyrrolate (Robinul) 1 mg STK-MED ONCE .ROUTE ; Start 05/15/18 at 09:41; Stop 05/15/18 at 09:42; Status DC Neostigmine Methylsulfate (Bloxiverz) 10 mg STK-MED ONCE .ROUTE ; Start at 09:41; Stop 05/15/18 at 09:42; Status DC Sevoflurane (Ultane) 90 ml STK-MED ONCE IH ; Start 05/15/18 at 09:42; Stop 05/15 at 09:43; Status DC Labetalol HCl (Normodyne Iv Push) 20 mg 1X ONCE IVP ; Start 05/15/18 at 10:30; Stop 05/15/18 at 10:31; Status DC Ketorolac Tromethamine (Toradol For Or Only) 30 mg STK-MED ONCE INJ ; Start at 12:02; Stop 05/15/18 at 12:03; Status DC Enoxaparin Sodium (Lovenox 40mg Syringe) 40 mg Q24H SQ Last administered on at 08:38; Start 05/16/18 at 08:00 Sodium Chloride (Normal Saline Flush) 3 ml QSHIFT PRN IV AFTER MEDS AND BLOOD DRAWS; Start 05/15/18 at 12:15 Naloxone HCl (Narcan) 0.4 mg PRN Q2MIN PRN IV SEE INSTRUCTIONS; Start 05/15/18 at 12:15 Sodium Chloride 1,000 ml @ 25 mls/hr Q24H IV Last administered on 05/15/18at 15 :34; Start 05/15/18 at 12:01 Morphine Sulfate 30 ml @ 0 mls/hr CONT PRN PRN IV PER PROTOCOL Last administered on 05/16/18at 08:41; Start 05/15/18 at 12:15 Ondansetron HCl (Zofran) 4 mg PRN Q6HRS PRN IV NAUESA, 1ST CHOICE; Start at 12:15 Fentanyl Citrate (Fentanyl 2ml Vial) 100 mcg STK-MED ONCE .ROUTE ; Start at 12:39; Stop 05/15/18 at 12:40; Status DC Insulin Glargine (Lantus) 10 units 1X STAT SQ ; Start 05/15/18 at 13:01; Stop 05/15/18 at 13:05; Status DC Insulin Human Lispro (HumaLOG) 4 units ONCE STAT SQ Last administered on at 13:07; Start 05/15/18 at 13:01; Stop 05/15/18 at 13:05; Status DC Sodium Chloride 120 meq/Potassium Chloride 20 meq/ Potassium Phosphate 30 mmol/ Magnesium Sulfate 20 meq/Calcium Gluconate 5 meq/ Multivitamins 10 ml/Chromium/ Copper/Manganese/ Seleni/Zn 1 ml/ Total Parenteral Nutrition/Amino Acids/ Dextrose/ Fat Emulsion Intravenous 1,512 ml @ 63 mls/hr TPN CONT IV Last administered on 05/15/18at 21:52; Start 05/15/18 at 22:00; Stop 05/16/18 at 21:59 ; Status DC Insulin Human Lispro (HumaLOG) 17 units 1X ONCE SQ Last administered on at 15:48; Start 05/15/18 at 15:15; Stop 05/15/18 at 15:16; Status DC Insulin Glargine (Lantus) 25 units DAILY10 SQ Last administered on 05/16/18at 08 :42; Start 05/16/18 at 10:00; Stop 05/16/18 at 10:04; Status DC Magnesium Sulfate/ Dextrose 100 ml @ 100 mls/hr 1X ONCE IV Last administered on 05/15/18at 18:08; Start 05/15/18 at 16:30; Stop 05/15/18 at 17:29; Status DC Insulin Glargine (Lantus) 15 units 1X ONCE SQ Last administered on 05/15/18at 21:34; Start 05/15/18 at 21:15; Stop 05/15/18 at 21:50; Status DC Insulin Human Lispro (HumaLOG) 17 units 1X ONCE SQ Last administered on at 21:33; Start 05/15/18 at 21:15; Stop 05/15/18 at 21:50; Status DC Insulin Human Lispro (HumaLOG) 5 units TIDWMEALS SQ ; Start 05/16/18 at 08:00; Status UNV Insulin Glargine (Lantus) 25 units BID SQ ; Start 05/16/18 at 21:00; Stop at 21:00; Status DC Insulin Human Lispro (HumaLOG) 20 units 1X ONCE SQ Last administered on at 10:30; Start 05/16/18 at 10:30; Stop 05/16/18 at 10:31; Status DC Insulin Glargine (Lantus) 35 units BID SQ Last administered on 05/17/18at 08:40 ; Start 05/16/18 at 21:00 Enoxaparin Sodium (Lovenox 40mg Syringe) 40 mg Q24H SQ ; Start 05/16/18 at 12:00 ; Status Cancel Insulin Glargine (Lantus) 20 units 1X ONCE SQ Last administered on 05/16/18at 12:07; Start 05/16/18 at 12:00; Stop 05/16/18 at 12:01; Status DC Magnesium Sulfate 50 ml @ 25 mls/hr 1X ONCE IV Last administered on 05/16/18at 13:57; Start 05/16/18 at 12:00; Stop 05/16/18 at 13:59; Status DC Insulin Human Lispro (HumaLOG) 25 units 1X ONCE SQ ; Start 05/16/18 at 12:30; Stop 05/16/18 at 12:31; Status DC Sodium Chloride 120 meq/Potassium Chloride 20 meq/ Potassium Phosphate 30 mmol/ Magnesium Sulfate 20 meq/Calcium Gluconate 5 meq/ Multivitamins 10 ml/Chromium/ Copper/Manganese/ Seleni/Zn 1 ml/ Total Parenteral Nutrition/Amino Acids/ Dextrose/ Fat Emulsion Intravenous 1,512 ml @ 63 mls/hr TPN CONT IV Last administered on 05/16/18at 22:28; Start 05/16/18 at 22:00; Stop 05/17/18 at 21:59 Budesonide (Pulmicort) 0.5 mg PRN BID PRN NEB WHEEZING; Start 05/16/18 at 20:00 Insulin Human Lispro (HumaLOG) 0-9 UNITS TIDWMEALS SQ ; Start 05/17/18 at 12:00 Dextrose (Dextrose 50%-Water Syringe) 12.5 gm PRN Q15MIN PRN IV SEE COMMENTS; Start 05/17/18 at 08:30 Active Scripts Active Cipro (Ciprofloxacin Hcl) 500 Mg Tablet 1 Tab PO BID 14 Days Biotene Moisturizing Mouth (Saliva Stimulant Agents Comb.3) 44.3 Ml Mahaffey 2 Mahaffey PO PRN Q15MIN PRN 30 Days Lantus Solostar (Insulin Glargine,Hum.rec.anlog) 100 Unit/1 Ml Insuln.pen 12 Units SQ DAILY10 30 Days Culturelle (Lactobacillus Rhamnosus Gg) 1 Each Cap.sprink 1 Cap PO BID 28 Days Lipitor (Atorvastatin Calcium) 40 Mg Tablet 1 Tab PO QHS Aspirin Ec (Aspirin) 81 Mg Tablet.dr 81 Mg PO DAILYWBKFT Brilinta (Ticagrelor) 90 Mg Tablet 90 Mg PO BID Reported Metformin Hcl 500 Mg Tablet 500 Mg PO BIDWMEALS Soma (Carisoprodol) 350 Mg Tablet 1 Tab PO BID Omeprazole 40 Mg Capsule.dr 1 Cap PO DAILY Symbicort 80-4.5 Mcg Inhaler (Budesonide/Formoterol Fumarate) 10.2 Gm Hfa.aer.ad 1 Puff IH BID Amaryl (Glimepiride) 4 Mg Tablet 1 Tab PO DAILY Amlodipine Besylate 5 Mg Tablet 5 Mg PO DAILY Carvedilol (Carvedilol) 12.5 Mg Tablet 1 Tab PO BID Colestipol Hcl 1 Gm Tablet 2 Gm PO 1X Magnesium Oxide 400 Mg Tablet 250 Tab PO DAILY Vitamin D3 (Cholecalciferol (Vitamin D3)) 1,000 Unit Tablet 2,000 Tab PO DAILY Vitals/I & O Vital Sign - Last 24 Hours 05/16/18 05/16/18 05/16/18 05/16/18 11:00 15:00 19:00 19:40 Temp 98.2 98.5 99.9 98.2 98.5 99.9 Pulse 99 120 64 Resp 18 18 B/P (MAP) 118/61 (80) 132/60 (84) 126/52 (76) Pulse Ox 92 91 95 O2 Delivery Nasal Cannula Nasal Cannula Room Air Room Air 05/16/18 05/16/18 05/17/18 05/17/18 21:11 23:00 03:00 07:00 Temp 99.6 99.1 98.5 99.6 99.1 98.5 Pulse 64 100 95 61 Resp 18 18 18 B/P (MAP) 126/52 139/78 (98) 138/58 (84) 121/62 (81) Pulse Ox 91 93 94 O2 Delivery Room Air Room Air Room Air 05/17/18 05/17/18 05/17/18 07:15 08:36 08:37 Pulse 61 61 B/P (MAP) 121/62 121/62 O2 Delivery Room Air Intake and Output 05/16/18 05/16/18 05/17/18 14:59 22:59 06:59 Intake Total 1630 ml Output Total 850 ml Balance -850 ml 1630 ml Nutrition Consultation Dietary Evaluation: Recommendations by RD: PPN/TPN Comments: Recommend continue current TPN order Diet advancement per GI to regular as tollerated Expected Outcomes/Goals: Advancement to Regular diet as tollerated Meet >75% estimated needs through P.O. intake Interpretation of weight loss: >7.5% in 3 months Malnutrition Findings: Body Fat Depletion (Non Severe: Mild Depletion Weight Status: Appropriate NATHAN GUTIERREZ MD May 17, 2018 10:07
--- NOTE | 2018-05-17 10:22 | RAD ---
Portable AP supine view of the abdomen Clinical indications: Laparoscopic versus open sigmoid resection. Placement of NG tube. FINDINGS: Tip of an NG tube is seen within the proximal body of the stomach. There is mild dilatation of the transverse colon. No small bowel dilatation is seen. Cholecystectomy clips are evident. IMPRESSION: No obstructive bowel pattern. Mild dilatation of the transverse colon. Tip of NG tube is seen within the proximal body of the stomach. Electronically signed by: Miguel Angel Adams MD (05/17/2018 10:20 AM) [facility]
[2018-05-17 11:00] VITALS: BP 102/40
[2018-05-17] MEDS: MORPHINE SULFATE/PF 30 ML IV PRN ×2 (11:08→23:59)
[2018-05-17] MEDS: TPN PER PHARMACY MC PRN (11:32)
[2018-05-17] MEDS: IV NORMAL SALINE 1000ML BAG 1,000 ML IV SCH (12:01)
--- NOTE | 2018-05-17 13:07 | PDOC ---
SUBJECTIVE Subjective Pt doing well this am. Had his maravilla removed and was able to void and has been voiding several time since this happened. Denies dysuria or difficulty emptying bladder. No Flank pain, no hematuria. Stents were removed after General Surgeons completed surgery per Merari and no stents are present on KUB done this am. OBJECTIVE Objective Physical Exam: General appearance: Alert and Oriented Head: Normocephalic, without obvious abnormality Eyes: conjunctivae/corneas clear. PERRL, EOM's intact. Fundi benign Back: no CVA pain Lungs:Regular respirations, non labored breathing Abdomen: + Colostomy bag in place, ABD dressing present and CDI. Pelvic: deferred Vital Signs Vital Signs Date Time Temp Pulse Resp B/P (MAP) Pulse Ox O2 Delivery O2 Flow Rate FiO2 05/17/18 11:08 Room Air 05/17/18 11:00 98.9 53 18 102/40 (60) 95 Room Air 98.9 05/17/18 08:37 61 121/62 05/17/18 08:36 61 121/62 05/17/18 07:15 Room Air 05/17/18 07:00 98.5 61 18 121/62 (81) 94 Room Air 98.5 05/17/18 03:00 99.1 95 18 138/58 (84) 93 Room Air 99.1 05/16/18 23:00 99.6 100 18 139/78 (98) 91 Room Air 99.6 05/16/18 21:11 64 126/52 05/16/18 19:40 Room Air 05/16/18 19:00 99.9 64 18 126/52 (76) 95 Room Air 99.9 05/16/18 15:00 98.5 120 18 132/60 (84) 91 Nasal Cannula 98.5 I & O Intake and Output 05/17/18 06:59 Intake Total 1630 ml Output Total 850 ml Balance 780 ml Intake Oral 120 ml IV Total 755 ml Other 755 ml Output Urine Total 600 ml Gastric Drainage Total 250 ml PHYSICAL EXAM Physical Exam Physical Exam: General appearance: Alert and Oriented Head: Normocephalic, without obvious abnormality Eyes: conjunctivae/corneas clear. PERRL, EOM's intact. Fundi benign Back: no CVA pain Lungs:Regular respirations, non labored breathing Abdomen: + Colostomy bag in place, ABD dressing present and CDI. Pelvic: deferred ASSESSMENT/PLAN Assessment/Plan Pt's prophylactic stents have been removed and he has passed his voiding trial. Told patient to please report hematuria or dysuria to RN or medical staff. Will sign fof at this time, but please call with questions or changes in patient condition. COMMENT Lab Laboratory Tests Test 05/16/18 14:02 05/16/18 16:28 05/16/18 20:42 05/17/18 00:45 Glucose (Fingerstick) 141 mg/dL (70-99) 99 mg/dL (70-99) 107 mg/dL (70-99) 154 mg/dL (70-99) Test 05/17/18 05:55 05/17/18 07:31 05/17/18 11:21 White Blood Count 30.1 x10^3/uL (4.0-11.0) Red Blood Count 3.54 x10^6/uL (4.30-5.70) Hemoglobin 10.2 g/dL (13.0-17.5) Hematocrit 30.8 % (39.0-53.0) Mean Corpuscular Volume 87 fL (79-100) Mean Corpuscular Hemoglobin 29 pg (25-35) Mean Corpuscular Hemoglobin Concent 33 g/dL (31-37) Red Cell Distribution Width 14.9 % (11.5-14.5) Platelet Count 318 x10^3/uL (140-400) Neutrophils (%) (Auto) 88 % (31-73) Lymphocytes (%) (Auto) 5 % (24-48) Monocytes (%) (Auto) 6 % (0-9) Eosinophils (%) (Auto) 0 % (0-3) Basophils (%) (Auto) 0 % (0-3) Neutrophils # (Auto) 26.6 x10^3uL (1.8-7.7) Lymphocytes # (Auto) 1.5 x10^3/uL (1.0-4.8) Monocytes # (Auto) 1.8 x10^3/uL (0.0-1.1) Eosinophils # (Auto) 0.1 x10^3/uL (0.0-0.7) Basophils # (Auto) 0.1 x10^3/uL (0.0-0.2) Sodium Level 132 mmol/L (136-145) Potassium Level 4.7 mmol/L (3.5-5.1) Chloride Level 96 mmol/L (98-107) Carbon Dioxide Level 29 mmol/L (21-32) Anion Gap 7 (6-14) Blood Urea Nitrogen 16 mg/dL (8-26) Creatinine 0.9 mg/dL (0.7-1.3) Estimated GFR (Cockcroft-Gault) 81.0 BUN/Creatinine Ratio 18 (6-20) Glucose Level 161 mg/dL (70-99) Calcium Level 7.9 mg/dL (8.5-10.1) Phosphorus Level 3.2 mg/dL (2.6-4.7) Magnesium Level 1.9 mg/dL (1.8-2.4) Total Bilirubin 0.4 mg/dL (0.2-1.0) Aspartate Amino Transf (AST/SGOT) 44 U/L (15-37) Alanine Aminotransferase (ALT/SGPT) 80 U/L (16-63) Alkaline Phosphatase 144 U/L (46-116) Total Protein 5.9 g/dL (6.4-8.2) Albumin 1.8 g/dL (3.4-5.0) Albumin/Globulin Ratio 0.4 (1.0-1.7) Glucose (Fingerstick) 161 mg/dL (70-99) 214 mg/dL (70-99) Imaging kub MPRESSION: No obstructive bowel pattern. Mild dilatation of the transverse colon. Tip of NG tube is seen within the proximal body of the stomach. Electronically signed by: Miguel Angel Adams MD (05/17/2018 10:20 AM) [facility] Nutrition Consultation Dietary Evaluation: Recommendations by RD: PPN/TPN Comments: Recommend continue current TPN order Diet advancement per GI to regular as tollerated Expected Outcomes/Goals: Advancement to Regular diet as tollerated Meet >75% estimated needs through P.O. intake Interpretation of weight loss: >7.5% in 3 months Malnutrition Findings: Body Fat Depletion (Non Severe: Mild Depletion Weight Status: Appropriate LUKE GALVIN APRN May 17, 2018 13:07
--- NOTE | 2018-05-17 14:11 | NUR ---
Pharmacy TPN Dosing Note S: EDITH SELBY is a 82 year old M Currently receiving [place] Continuous TPN started 05/13/18 B:Pertinent PMH: ABDOMINAL ABSCESS/PERFORATION Height: 5 feet, 10 inches Weight: 62.634044 kg Current diet: NPO LABS: Sodium: 132 Potassium: 4.7 Chloride: 96 Calcium: 7.9 Corrected Calcium: 9.66 Magnesium: 1.9 CO2: 29 SCr: 0.9 Glucose: 161 Albumin: 1.8 AST: 44 ALT: 80 TPN FORMULA: TPN TYPE: [place] Continuous AMINO ACIDS: 60 gm DEXTROSE: 195 gm LIPIDS: 20 gm SODIUM CHLORIDE: 140 mEq SODIUM ACETATE: mEq SODIUM PHOSPHATE: mmol POTASSIUM CHLORIDE: 20 mEq POTASSIUM ACETATE: mEq POTASSIUM PHOSPHATE: 30 mmol MAGNESIUM: 20 mEq CALCIUM: 10 mEq INSULIN: units MULTIPLE VITAMIN: 10 ml TRACE ELEMENTS: 1 ml(s) TPN PLAN: increase nacl to 140 meq in tpn R: Continue TPN AT 63ML/HR Will monitor electrolytes, glucose, and tolerance to TPN. [facility], 05/17/18 [id number]
[2018-05-17 15:00] VITALS: BP 104/70
[2018-05-17 15:35] LABS: BILIRUBIN,URINE NEGATIVE (NEG); CLARITY,URINE CLOUDY; NITRITE,URINE NEGATIVE (NEG); PH,URINE 5.5; PROTEIN,URINE 100 mg/dL (NEG-TRACE); UROBILINOGEN,URINE 0.2 mg/dL (0.2 mg/dL)
--- NOTE | 2018-05-17 16:35 | NUR ---
Edema noted to R arm below picc line insertion site near mesh sleeve. Pt. denies pain, numbness/tingling. No excessive warmth to the touch. Mesh sleeve removed and R arm elevated on pillows. Will continue to monitor.
[2018-05-17 16:40] LABS: COLOR,URINE BROWN
[2018-05-17 16:41] LABS: BACTERIA,URINE 0 /HPF (0-FEW)
[2018-05-17 16:42] LABS: RBC,URINE TNTC /HPF (0-2)
--- NOTE | 2018-05-17 18:10 | NUR ---
R arm reassessed, decreased edema noted. Pt. denies complaints.
[2018-05-17 19:00] VITALS: BP 128/58
[2018-05-17] MEDS ORDERED: AMINO ACID IV SCH ×10 (22:00)
[2018-05-17] MEDS ORDERED: TOTAL PARENTERAL NUTRITION IV SCH ×10 (22:00)
[2018-05-17] MEDS ORDERED: DEXTROSE 70% IV SCH ×10 (22:00)
[2018-05-17] MEDS ORDERED: [UNRECOGNIZED DRUG - OTHER] IV SCH ×10 (22:00)
[2018-05-17 23:00] VITALS: BP 115/60
[2018-05-17 23:13] LABS: HEMOGLOBIN A1C 11.3 % (4.8-5.6)
[2018-05-18] MEDS: MEROPENEM 500 MG in IV NORMAL SALINE 50ML 50 ML IV SCH ×5 (00:01→22:59)
[2018-05-18 03:00] VITALS: BP 121/53
[2018-05-18] MEDS: CLOTRIMAZOLE 10 MG TROCHE. MM SCH ×5 (05:25→20:57)
[2018-05-18] MEDS: PANTOPRAZOLE IV PUSH 40 MG VIAL. IVP SCH (05:25)
[2018-05-18 06:03] LABS: BASO # 0.1 x10^3/uL (0.0-0.2); BASO % 0 % (0-3); EOS # 0.4 x10^3/uL (0.0-0.7); EOS % 2 % (0-3); HEMATOCRIT 25.6 % (39.0-53.0); HEMOGLOBIN 8.2 g/dL (13.0-17.5); LYMPH # 1.3 x10^3/uL (1.0-4.8); LYMPH % 8 % (24-48); MEAN CORPUSCULAR HEMOGLOBIN 28 pg (25-35); MEAN CORPUSCULAR HGB CONC 32 g/dL (31-37); MEAN CORPUSCULAR VOLUME 88 fL (79-100); MONO # 0.9 x10^3/uL (0.0-1.1); MONO % 5 % (0-9); NEUT # 14.6 x10^3uL (1.8-7.7); NEUT % 85 % (31-73); PLATELET COUNT 306 x10^3/uL (140-400); RED BLOOD COUNT 2.92 x10^6/uL (4.30-5.70); RED CELL DISTRIBUTION WIDTH 14.9 % (11.5-14.5); WHITE BLOOD COUNT 17.3 x10^3/uL (4.0-11.0)
[2018-05-18 07:00] VITALS: BP 122/61
[2018-05-18] MEDS: MICAFUNGIN 100 MG in IV DEXTROSE 5% 100ML 100 ML IV SCH (08:24)
[2018-05-18] MEDS: ASPIRIN ENTERIC COATED 81 MG TABLET.DR. PO SCH (08:30)
[2018-05-18] MEDS: LACTOBACILLUS RHAMNOSUS GG 1 CAPSULE. PO SCH ×2 (08:30→20:58)
[2018-05-18] MEDS: GLIMEPIRIDE 2 MG TABLET. PO SCH (08:31)
[2018-05-18] MEDS: metFORMIN 500 MG TABLET PO SCH ×2 (08:31→17:17)
[2018-05-18] MEDS: amLODIPine BESYLATE 5 MG TABLET PO SCH (08:31)
[2018-05-18] MEDS: CHOLECALCIFEROL (VITAMIN D3) 1,000 UNIT TABLET PO SCH (08:31)
[2018-05-18] MEDS: MAGNESIUM OXIDE 400 MG TABLET PO SCH (08:31)
[2018-05-18] MEDS: ENOXAPARIN 40 MG/0.4 ML SYRINGE. SQ SCH (08:32)
[2018-05-18] MEDS: METOPROLOL TART IMMED RELEASE 50 MG TABLET. PO SCH ×2 (08:32→20:58)
[2018-05-18] MEDS: INSULIN LISPRO 300 UNITS/3 ML INSULN.PEN. SQ SCH ×5 (08:43→17:00)
[2018-05-18] MEDS: INSULIN GLARGINE 300 UNITS/3 ML INSULN.PEN. SQ SCH ×2 (08:44→21:05)
--- NOTE | 2018-05-18 09:39 | PDOC ---
Infectious Disease Note Subjective Subjective feeling good says RODOLFO ROS no n/v/d/sob Vital Sign Vital Signs Vital Signs Date Time Temp Pulse Resp B/P (MAP) Pulse Ox O2 Delivery O2 Flow Rate FiO2 05/18/18 08:32 77 122/61 05/18/18 07:20 Room Air 05/18/18 07:00 97.9 18 95 97.9 Physical Exam PHYSICAL EXAM GENERAL: Propped up in bed, alert, NAD HEENT: Pupils equal and reactive. Oral cavity, pharynx clear, dentures NECK: Supple, no JVD. LUNGS: Clear to auscultation, HEART: S1, S2. ABDOMEN: Mildly distended, soft, tender to light palpation, hypoactive BS, dressing dry. ostomy bag sealed. JEREMY LLQ out : Ornelas in place EXTREMITIES: No clubbing, cyanosis or gross edema. SKIN: Warm to touch without signs of rash. NEUROLOGIC: Alert, nonfocal and appropriate. RUE-PICC (05/13) wo signs of complications Labs Lab Laboratory Tests Test 05/17/18 11:21 05/17/18 15:00 05/17/18 16:23 05/17/18 20:33 Glucose (Fingerstick) 214 mg/dL (70-99) 195 mg/dL (70-99) 135 mg/dL (70-99) Urine Collection Type Void Urine Color Brown Urine Clarity Cloudy Urine pH 5.5 Urine Specific [place] >=1.030 Urine Protein 100 mg/dL (NEG-TRACE) Urine Glucose (UA) >=1000 mg/dL (NEG) Urine Ketones (Stick) Trace mg/dL (NEG) Urine Blood Large (NEG) Urine Nitrite Negative (NEG) Urine Bilirubin Negative (NEG) Urine Urobilinogen Dipstick 0.2 mg/dL (0.2 mg/dL) Urine Leukocyte Esterase Small (NEG) Urine RBC Tntc /HPF (0-2) Urine WBC 11-20 /HPF (0-4) Urine Bacteria 0 /HPF (0-FEW) Urine Mucus Mod /LPF Test 05/18/18 05:00 05/18/18 07:43 White Blood Count 17.3 x10^3/uL (4.0-11.0) Red Blood Count 2.92 x10^6/uL (4.30-5.70) Hemoglobin 8.2 g/dL (13.0-17.5) Hematocrit 25.6 % (39.0-53.0) Mean Corpuscular Volume 88 fL (79-100) Mean Corpuscular Hemoglobin 28 pg (25-35) Mean Corpuscular Hemoglobin Concent 32 g/dL (31-37) Red Cell Distribution Width 14.9 % (11.5-14.5) Platelet Count 306 x10^3/uL (140-400) Neutrophils (%) (Auto) 85 % (31-73) Lymphocytes (%) (Auto) 8 % (24-48) Monocytes (%) (Auto) 5 % (0-9) Eosinophils (%) (Auto) 2 % (0-3) Basophils (%) (Auto) 0 % (0-3) Neutrophils # (Auto) 14.6 x10^3uL (1.8-7.7) Lymphocytes # (Auto) 1.3 x10^3/uL (1.0-4.8) Monocytes # (Auto) 0.9 x10^3/uL (0.0-1.1) Eosinophils # (Auto) 0.4 x10^3/uL (0.0-0.7) Basophils # (Auto) 0.1 x10^3/uL (0.0-0.2) Glucose (Fingerstick) 272 mg/dL (70-99) Micro ANAEROBIC-AEROBIC CULTURE Final Final report ANAEROBIC RES 1 Final Comment No anaerobic growth in 72 hours. AEROBIC CULT Final Final report AEROBIC RES 1 Final Escherichia coli 4+ AEROBIC RES 2 Final Yeast isolated. 4+ Request for further identification must be made within 1 week. AEROBIC RES 3 Final Mixed skin mireya 4+ ANTIMICROBIAL SUSCEPTIBILITY Final Comment S = Susceptible; I = Intermediate; R = Resistant P = Positive; N = Negative MICS are expressed in micrograms per mL Antibiotic RSLT#1 RSLT#2 RSLT#3 RSLT#4 Amoxicillin/Clavulanic Acid S =8 Ampicillin R =R CONTINUED ON NEXT PAGE RUN DATE: 05/15/18 PAGE 2 RUN TIME: 1810 [facility] [address] [place] [address] Jonathan Sauceda M.D., Histology Technologist SPEC: [id number] PATIENT: EDITH SELBY [id number] ( Continued) Procedure Result ANTIMICROBIAL SUSCEPTIBILITY Final (continued) Cefepime S<=0.12 Ceftriaxone S<=0.25 Cefuroxime R>=64 Ciprofloxacin R>=4 Ertapenem S<=0.12 Gentamicin S<=1 Imipenem S<=0.25 Levofloxacin R>=8 Meropenem S<=0.25 Piperacillin/Tazobactam S<=4 Tetracycline S<=1 Tobramycin S<=1 Trimethoprim/Sulfa S<=20 GRAM STAIN Final Final report GRAM STAIN RES 1 Final Comment No white blood cells seen. GRAM STAIN RES 2 Final Comment Few gram negative rods. GRAM STAIN RES 3 Final Comment Few gram positive cocci GRAM STAIN RES 4 Final Comment Few gram positive rods. 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 Recurrent abdominal abscesses s/p drain on 05/11 with growth of mixed mireya, yeast and E. coli (R quinolones, amp, cefuroxime) - h/o IR drain on 04/21 with growth of Bacteroides, E. coli (R quinolones), Klebsiella and (yeast on GS) Leukocytosis - likely reactive in part to steroids and surgery on 05/15 Transaminitis - better Thrush - better DM s/p cystoscopy with bilateral stent placement, 05/15. Plan Plan of Care Cont Meropenem and Micafungin Mycelex kalyan Monitor WBC/temp am labs have been ordered Further ID workup on yeast requested, spoke with heraclio D/w ALEXA MULLINS MD May 18, 2018 09:39
--- NOTE | 2018-05-18 10:31 | PDOC ---
PROGRESS NOTES Chief Complaint Chief Complaint Abdominal abscess, perf status post surgery to 05/15/17-now with indwelling colostomy Poor by mouth on TPN Postop abdominal pain on [employer] Leukocytosis/sepsis-with ID on board Anemia of chronic disease- hemoglobin 10 DM 2 adeq control MIld encephalopathy post op-day #3 History of Present Illness History of Present Illness Patient much better today in terms of mentation GS is planning to advance current diet-might be able to get off TPN if that's the case Discussed with ID, Intra-Op cultures noted WBC down to 17 from 30 with no white count Nontoxic appearing Hemoglobin A1c 11.3 with blood sugars high-on TPN PLAN: Increase NovoLog from 5 to 15units 3 times a day-continue 35 twice a day long- acting May check a sedimentation rate tomorrow and CBC again tomorrow Social work for SNU screen GS to advance diet today COnt IV abx per ID Pt agreeable to SNU Vitals Vitals Vital Signs Date Time Temp Pulse Resp B/P (MAP) Pulse Ox O2 Delivery O2 Flow Rate FiO2 05/18/18 08:32 77 122/61 05/18/18 07:20 Room Air 05/18/18 07:00 97.9 18 95 97.9 Physical Exam Physical Exam GENERAL: Propped up in bed, alert, NAD HEENT: Pupils equal and reactive. Oral cavity, pharynx clear, dentures NECK: Supple, no JVD. LUNGS: Clear to auscultation, HEART: S1, S2. ABDOMEN: Mildly distended, soft, tender to light palpation, hypoactive BS, dressing dry. ostomy bag sealed. JEREMY LLQ out : Ornelas in place EXTREMITIES: No clubbing, cyanosis or gross edema. SKIN: Warm to touch without signs of rash. NEUROLOGIC: Alert, nonfocal and appropriate. RUE-PICC (05/13) wo signs of complications General: Alert, Oriented X3, Cooperative, No acute distress Lungs: Clear, Wheezing Abdomen: Soft, No tenderness, Other (ostomy viable and fxn) Extremities: No clubbing, No cyanosis, Normal pulses Skin: No rashes, No breakdown, No significant lesion Labs LABS Laboratory Tests Test 05/17/18 11:21 05/17/18 15:00 05/17/18 16:23 05/17/18 20:33 Glucose (Fingerstick) 214 mg/dL (70-99) 195 mg/dL (70-99) 135 mg/dL (70-99) Urine Collection Type Void Urine Color Brown Urine Clarity Cloudy Urine pH 5.5 Urine Specific [place] >=1.030 Urine Protein 100 mg/dL (NEG-TRACE) Urine Glucose (UA) >=1000 mg/dL (NEG) Urine Ketones (Stick) Trace mg/dL (NEG) Urine Blood Large (NEG) Urine Nitrite Negative (NEG) Urine Bilirubin Negative (NEG) Urine Urobilinogen Dipstick 0.2 mg/dL (0.2 mg/dL) Urine Leukocyte Esterase Small (NEG) Urine RBC Tntc /HPF (0-2) Urine WBC 11-20 /HPF (0-4) Urine Bacteria 0 /HPF (0-FEW) Urine Mucus Mod /LPF Test 05/18/18 05:00 05/18/18 07:43 White Blood Count 17.3 x10^3/uL (4.0-11.0) Red Blood Count 2.92 x10^6/uL (4.30-5.70) Hemoglobin 8.2 g/dL (13.0-17.5) Hematocrit 25.6 % (39.0-53.0) Mean Corpuscular Volume 88 fL (79-100) Mean Corpuscular Hemoglobin 28 pg (25-35) Mean Corpuscular Hemoglobin Concent 32 g/dL (31-37) Red Cell Distribution Width 14.9 % (11.5-14.5) Platelet Count 306 x10^3/uL (140-400) Neutrophils (%) (Auto) 85 % (31-73) Lymphocytes (%) (Auto) 8 % (24-48) Monocytes (%) (Auto) 5 % (0-9) Eosinophils (%) (Auto) 2 % (0-3) Basophils (%) (Auto) 0 % (0-3) Neutrophils # (Auto) 14.6 x10^3uL (1.8-7.7) Lymphocytes # (Auto) 1.3 x10^3/uL (1.0-4.8) Monocytes # (Auto) 0.9 x10^3/uL (0.0-1.1) Eosinophils # (Auto) 0.4 x10^3/uL (0.0-0.7) Basophils # (Auto) 0.1 x10^3/uL (0.0-0.2) Glucose (Fingerstick) 272 mg/dL (70-99) Review of Systems Review of Systems A 14 point ROS was completed with the following noted as positive: Other systems reviewed and negative. \CONSTITUTIONAL: No fever or chills EYES: No recent changes SKIN: No rash or itching CARDIOVASCULAR: No chest pain, syncope, palpitations, or edema RESPIRATORY: No SOB or cough GASTROINTESTINAL: No nausea, vomiting or abdominal pain NEUROLOGICAL: No headaches or weakness ENDOCRINE: No cold or heat intolerance GENITOURINARY: No urgency or frequency of urination MUSCULOSKELETAL: No back pain or joint pain LYMPHATICS: No enlarged lymph nodes PSYCHIATRIC: No anxiety or depression Comment Review of Relevant I have reviewed the following items mukesh (where applicable) has been applied. Labs Laboratory Tests Test 05/16/18 11:45 05/16/18 14:02 05/16/18 16:28 05/16/18 20:42 Glucose (Fingerstick) 325 mg/dL (70-99) 141 mg/dL (70-99) 99 mg/dL (70-99) 107 mg/dL (70-99) Test 05/17/18 00:45 05/17/18 05:55 05/17/18 07:31 05/17/18 11:21 Glucose (Fingerstick) 154 mg/dL (70-99) 161 mg/dL (70-99) 214 mg/dL (70-99) White Blood Count 30.1 x10^3/uL (4.0-11.0) Red Blood Count 3.54 x10^6/uL (4.30-5.70) Hemoglobin 10.2 g/dL (13.0-17.5) Hematocrit 30.8 % (39.0-53.0) Mean Corpuscular Volume 87 fL (79-100) Mean Corpuscular Hemoglobin 29 pg (25-35) Mean Corpuscular Hemoglobin Concent 33 g/dL (31-37) Red Cell Distribution Width 14.9 % (11.5-14.5) Platelet Count 318 x10^3/uL (140-400) Neutrophils (%) (Auto) 88 % (31-73) Lymphocytes (%) (Auto) 5 % (24-48) Monocytes (%) (Auto) 6 % (0-9) Eosinophils (%) (Auto) 0 % (0-3) Basophils (%) (Auto) 0 % (0-3) Neutrophils # (Auto) 26.6 x10^3uL (1.8-7.7) Lymphocytes # (Auto) 1.5 x10^3/uL (1.0-4.8) Monocytes # (Auto) 1.8 x10^3/uL (0.0-1.1) Eosinophils # (Auto) 0.1 x10^3/uL (0.0-0.7) Basophils # (Auto) 0.1 x10^3/uL (0.0-0.2) Sodium Level 132 mmol/L (136-145) Potassium Level 4.7 mmol/L (3.5-5.1) Chloride Level 96 mmol/L (98-107) Carbon Dioxide Level 29 mmol/L (21-32) Anion Gap 7 (6-14) Blood Urea Nitrogen 16 mg/dL (8-26) Creatinine 0.9 mg/dL (0.7-1.3) Estimated GFR (Cockcroft-Gault) 81.0 BUN/Creatinine Ratio 18 (6-20) Glucose Level 161 mg/dL (70-99) Hemoglobin A1c 11.3 % (4.8-5.6) Calcium Level 7.9 mg/dL (8.5-10.1) Phosphorus Level 3.2 mg/dL (2.6-4.7) Magnesium Level 1.9 mg/dL (1.8-2.4) Total Bilirubin 0.4 mg/dL (0.2-1.0) Aspartate Amino Transf (AST/SGOT) 44 U/L (15-37) Alanine Aminotransferase (ALT/SGPT) 80 U/L (16-63) Alkaline Phosphatase 144 U/L (46-116) Total Protein 5.9 g/dL (6.4-8.2) Albumin 1.8 g/dL (3.4-5.0) Albumin/Globulin Ratio 0.4 (1.0-1.7) Test 05/17/18 15:00 05/17/18 16:23 05/17/18 20:33 05/18/18 05:00 Urine Collection Type Void Urine Color Brown Urine Clarity Cloudy Urine pH 5.5 Urine Specific [place] >=1.030 Urine Protein 100 mg/dL (NEG-TRACE) Urine Glucose (UA) >=1000 mg/dL (NEG) Urine Ketones (Stick) Trace mg/dL (NEG) Urine Blood Large (NEG) Urine Nitrite Negative (NEG) Urine Bilirubin Negative (NEG) Urine Urobilinogen Dipstick 0.2 mg/dL (0.2 mg/dL) Urine Leukocyte Esterase Small (NEG) Urine RBC Tntc /HPF (0-2) Urine WBC 11-20 /HPF (0-4) Urine Bacteria 0 /HPF (0-FEW) Urine Mucus Mod /LPF Glucose (Fingerstick) 195 mg/dL (70-99) 135 mg/dL (70-99) White Blood Count 17.3 x10^3/uL (4.0-11.0) Red Blood Count 2.92 x10^6/uL (4.30-5.70) Hemoglobin 8.2 g/dL (13.0-17.5) Hematocrit 25.6 % (39.0-53.0) Mean Corpuscular Volume 88 fL (79-100) Mean Corpuscular Hemoglobin 28 pg (25-35) Mean Corpuscular Hemoglobin Concent 32 g/dL (31-37) Red Cell Distribution Width 14.9 % (11.5-14.5) Platelet Count 306 x10^3/uL (140-400) Neutrophils (%) (Auto) 85 % (31-73) Lymphocytes (%) (Auto) 8 % (24-48) Monocytes (%) (Auto) 5 % (0-9) Eosinophils (%) (Auto) 2 % (0-3) Basophils (%) (Auto) 0 % (0-3) Neutrophils # (Auto) 14.6 x10^3uL (1.8-7.7) Lymphocytes # (Auto) 1.3 x10^3/uL (1.0-4.8) Monocytes # (Auto) 0.9 x10^3/uL (0.0-1.1) Eosinophils # (Auto) 0.4 x10^3/uL (0.0-0.7) Basophils # (Auto) 0.1 x10^3/uL (0.0-0.2) Test 05/18/18 07:43 Glucose (Fingerstick) 272 mg/dL (70-99) Laboratory Tests Test 05/17/18 11:21 05/17/18 15:00 05/17/18 16:23 05/17/18 20:33 Glucose (Fingerstick) 214 mg/dL (70-99) 195 mg/dL (70-99) 135 mg/dL (70-99) Urine Collection Type Void Urine Color Brown Urine Clarity Cloudy Urine pH 5.5 Urine Specific [place] >=1.030 Urine Protein 100 mg/dL (NEG-TRACE) Urine Glucose (UA) >=1000 mg/dL (NEG) Urine Ketones (Stick) Trace mg/dL (NEG) Urine Blood Large (NEG) Urine Nitrite Negative (NEG) Urine Bilirubin Negative (NEG) Urine Urobilinogen Dipstick 0.2 mg/dL (0.2 mg/dL) Urine Leukocyte Esterase Small (NEG) Urine RBC Tntc /HPF (0-2) Urine WBC 11-20 /HPF (0-4) Urine Bacteria 0 /HPF (0-FEW) Urine Mucus Mod /LPF Test 05/18/18 05:00 05/18/18 07:43 White Blood Count 17.3 x10^3/uL (4.0-11.0) Red Blood Count 2.92 x10^6/uL (4.30-5.70) Hemoglobin 8.2 g/dL (13.0-17.5) Hematocrit 25.6 % (39.0-53.0) Mean Corpuscular Volume 88 fL (79-100) Mean Corpuscular Hemoglobin 28 pg (25-35) Mean Corpuscular Hemoglobin Concent 32 g/dL (31-37) Red Cell Distribution Width 14.9 % (11.5-14.5) Platelet Count 306 x10^3/uL (140-400) Neutrophils (%) (Auto) 85 % (31-73) Lymphocytes (%) (Auto) 8 % (24-48) Monocytes (%) (Auto) 5 % (0-9) Eosinophils (%) (Auto) 2 % (0-3) Basophils (%) (Auto) 0 % (0-3) Neutrophils # (Auto) 14.6 x10^3uL (1.8-7.7) Lymphocytes # (Auto) 1.3 x10^3/uL (1.0-4.8) Monocytes # (Auto) 0.9 x10^3/uL (0.0-1.1) Eosinophils # (Auto) 0.4 x10^3/uL (0.0-0.7) Basophils # (Auto) 0.1 x10^3/uL (0.0-0.2) Glucose (Fingerstick) 272 mg/dL (70-99) Microbiology 05/10/18 Blood Culture - Final, Complete NO GROWTH AFTER 5 DAYS 05/11/18 Anaerobic/Aerobic Culture - Final, Complete 05/11/18 Anaerobic Culture Result 1 (AMBROCIO) - Final, Complete 05/11/18 Aerobic Culture - Final, Complete 05/11/18 Aerobic Culture Result 1 (AMBROCIO) - Final, Complete 05/11/18 Aerobic Culture Result 2 (AMBROCIO) - Final, Complete 05/11/18 Aerobic Culture Result 3 (AMBROCIO) - Final, Complete 05/11/18 Antimicrobic Susceptibility - Final, Complete 05/11/18 Gram Stain - Final, Complete 05/11/18 Gram Stain Result 1 (AMBROCIO) - Final, Complete 05/11/18 Gram Stain Result 2 (AMBROCIO) - Final, Complete 05/11/18 Gram Stain Result 3 (AMBROCIO) - Final, Complete 05/11/18 Gram Stain Result 4 (AMBROCIO) - Final, Complete Medications Current Medications Hyoscyamine (Anaspaz) 0.125 mg ONCE ONCE PO Last administered on 05/10/18at 12: 07; Start 05/10/18 at 11:30; Stop 05/10/18 at 11:32; Status DC Ondansetron HCl (Zofran) 4 mg 1X ONCE IV Last administered on 05/10/18at 12:09 ; Start 05/10/18 at 11:30; Stop 05/10/18 at 11:32; Status DC Sodium Chloride 500 ml @ 500 mls/hr 1X ONCE IV Last administered on 12:04; Start 05/10/18 at 11:30; Stop 05/10/18 at 12:29; Status DC Iohexol (Omnipaque 240 Mg/ml) 30 ml 1X ONCE PO Last administered on 05/10/18at 12:00; Start 05/10/18 at 12:00; Stop 05/10/18 at 12:01; Status DC Iohexol (Omnipaque 300 Mg/ml) 75 ml 1X ONCE IV Last administered on 05/10/18at 13:08; Start 05/10/18 at 12:00; Stop 05/10/18 at 12:01; Status DC Info (CONTRAST GIVEN -- Rx MONITORING) 1 each PRN DAILY PRN MC SEE COMMENTS; Start 05/10/18 at 12:00; Stop 05/12/18 at 11:59; Status DC Ciprofloxacin/ Dextrose 200 ml @ 200 mls/hr 1X ONCE IV Last administered on at 15:58; Start 05/10/18 at 14:30; Stop 05/10/18 at 15:29; Status DC Metronidazole 100 ml @ 100 mls/hr 1X ONCE IV Last administered on 05/10/18at 15:57; Start 05/10/18 at 14:30; Stop 05/10/18 at 15:29; Status DC Ondansetron HCl (Zofran) 4 mg PRN Q8HRS PRN IV NAUSEA/VOMITING; Start 05/10/18 at 14:45; Stop 05/11/18 at 14:44; Status DC Morphine Sulfate (Morphine Sulfate) 2 mg PRN Q2HR PRN IV PAIN Last administered on 05/10/18at 16:29; Start 05/10/18 at 14:45; Stop 05/10/18 at 17:27 ; Status DC Sodium Chloride 1,000 ml @ 125 mls/hr Q8H IV Last administered on 05/11/18 08 :26; Start 05/10/18 at 15:00; Stop 05/11/18 at 14:59; Status DC Acetaminophen (Tylenol) 650 mg PRN Q4HRS PRN PO FEVER; Start 05/10/18 at 14:45 ; Stop 05/11/18 at 14:44; Status DC Ciprofloxacin/ Dextrose 200 ml @ 200 mls/hr Q12HR IV ; Start 05/11/18 at 09:00 ; Stop 05/11/18 at 09:00; Status DC Metronidazole 100 ml @ 100 mls/hr Q12HR IV ; Start 05/10/18 at 21:00; Stop at 21:00; Status DC Morphine Sulfate (Morphine Sulfate) 4 mg PRN Q2HR PRN IV PAIN Last administered on 05/14/18at 22:04; Start 05/10/18 at 17:30; Stop 05/15/18 at 12:07 ; Status DC Fentanyl Citrate (Fentanyl 2ml Vial) 50 mcg 1X ONCE IV Last administered on at 17:32; Start 05/10/18 at 17:30; Stop 05/10/18 at 17:31; Status DC Ketorolac Tromethamine (Toradol 15mg Vial) 15 mg 1X ONCE IV Last administered on 05/10/18at 17:36; Start 05/10/18 at 17:30; Stop 05/10/18 at 17:31; Status DC Enoxaparin Sodium (Lovenox Per Pharmacy Prophylaxis Dosing) 1 each PRN DAILY PRN MC SEE COMMENTS; Start 05/10/18 at 17:45; Status Cancel Metronidazole 100 ml @ 100 mls/hr Q12HR IV ; Start 05/11/18 at 09:00; Stop at 09:00; Status DC Enoxaparin Sodium (Lovenox 40mg Syringe) 40 mg QHS SQ Last administered on 05/10at 21:33; Start 05/10/18 at 21:00; Stop 05/10/18 at 21:37; Status DC Zolpidem Tartrate (Ambien) 5 mg PRN QHS PRN PO INSOMNIA Last administered on at 23:32; Start 05/10/18 at 23:15 Meropenem 500 mg/ Sodium Chloride 50 ml @ 100 mls/hr Q6HRS IV Last administered on 05/18/18at 05:17; Start 05/11/18 at 06:30 Linezolid/Dextrose 300 ml @ 300 mls/hr Q12HR IV Last administered on at 09:41; Start 05/11/18 at 09:00 Micafungin Sodium 100 mg/Dextrose 100 ml @ 100 mls/hr Q24H IV Last administered on 05/18/18 08:24; Start 05/11/18 at 08:00 Clotrimazole (Mycelex) 10 mg 5XDAY MM Last administered on 05/18/18at 09:43; Start 05/11/18 at 08:00 Lidocaine/Sodium Bicarbonate (Buffered Lidocaine 1%) 3 ml STK-MED ONCE .ROUTE ; Start 05/11/18 at 13:28; Stop 05/11/18 at 13:29; Status DC Insulin Human Lispro (HumaLOG) 0-5 UNITS TIDWMEALS SQ Last administered on 05/11at 17:00; Start 05/11/18 at 17:00; Stop 05/11/18 at 21:35; Status DC Dextrose (Dextrose 50%-Water Syringe) 12.5 gm PRN Q15MIN PRN IV SEE COMMENTS; Start 05/11/18 at 14:15 Midazolam HCl (Versed) 2 mg STK-MED ONCE .ROUTE ; Start 05/11/18 at 14:19; Stop 05/11/18 at 14:20; Status DC Fentanyl Citrate (Fentanyl 2ml Vial) 100 mcg STK-MED ONCE .ROUTE ; Start at 14:19; Stop 05/11/18 at 14:20; Status DC Lidocaine/Sodium Bicarbonate (Buffered Lidocaine 1%) 6 ml 1X ONCE IJ Last administered on 05/11/18at 14:36; Start 05/11/18 at 14:45; Stop 05/11/18 at 14:46 ; Status DC Midazolam HCl (Versed) 1 mg 1X ONCE IV Last administered on 05/11/18at 14:37; Start 05/11/18 at 14:45; Stop 05/11/18 at 14:46; Status DC Fentanyl Citrate (Fentanyl 2ml Vial) 50 mcg 1X ONCE IV Last administered on at 14:37; Start 05/11/18 at 14:45; Stop 05/11/18 at 14:46; Status DC Enoxaparin Sodium (Lovenox Per Pharmacy Prophylaxis Dosing) 1 each PRN DAILY PRN MC SEE COMMENTS; Start 05/12/18 at 09:00; Stop 05/15/18 at 12:07; Status DC Enoxaparin Sodium (Lovenox 40mg Syringe) 40 mg Q24H SQ Last administered on at 21:19; Start 05/11/18 at 21:00; Stop 05/13/18 at 22:00; Status DC Oxycodone/ Acetaminophen (Percocet 5/325) 1 tab PRN Q4HRS PRN PO PAIN Last administered on 05/11/18at 21:12; Start 05/11/18 at 16:30 Insulin Human Lispro (HumaLOG) 0-5 UNITS QIDACHS SQ Last administered on 22:01; Start 05/11/18 at 21:40; Stop 05/12/18 at 07:35; Status DC Ondansetron HCl (Zofran) 4 mg PRN Q6HRS PRN IV NAUSEA/VOMITING 1ST CHOICE Last administered on 05/13/18 06:34; Start 05/12/18 at 06:15; Stop 05/15/18 at 12:07 ; Status DC Insulin Human Lispro (HumaLOG) 0-7 UNITS QIDACHS SQ Last administered on 08:45; Start 05/12/18 at 08:00; Stop 05/17/18 at 08:23; Status DC Lactobacillus Rhamnosus (Culturelle) 1 cap BID PO Last administered on 08:30; Start 05/12/18 at 21:00 Info (Tpn Per Pharmacy) 1 each PRN DAILY PRN MC SEE COMMENTS Last administered on 05/17/18 11:32; Start 05/12/18 at 15:30 Pantoprazole Sodium (PROTONIX VIAL for IV PUSH) 40 mg DAILYAC IVP Last administered on 05/18/18 05:25; Start 05/13/18 at 07:30 Amlodipine Besylate (Norvasc) 5 mg DAILY PO Last administered on 05/18/18 08: 31; Start 05/13/18 at 09:00 Carvedilol (Coreg) 12.5 mg BIDWMEALS PO Last administered on 05/13/18 08:19; Start 05/13/18 at 08:15; Stop 05/13/18 at 16:24; Status DC Aspirin (Ecotrin) 81 mg DAILYWBKFT PO ; Start 05/14/18 at 08:00; Status UNV Atorvastatin Calcium (Lipitor) 40 mg QHS PO ; Start 05/13/18 at 21:00; Stop at 21:00; Status DC Vitamin D (Vitamin D3) 2,000 unit DAILY PO Last administered on 05/18/18at 08:31 ; Start 05/13/18 at 10:00 Insulin Glargine (Lantus) 12 units DAILY10 SQ Last administered on 05/13/18at 12 :09; Start 05/13/18 at 10:00; Stop 05/13/18 at 21:39; Status DC Lactobacillus Rhamnosus (Culturelle) 1 cap BID PO ; Start 05/13/18 at 10:00; Status Cancel Saliva Substitute (Biotene Moisturizing Mouth) 2 spray PRN Q15MIN PRN PO DRY MOUTH; Start 05/13/18 at 09:15 Ticagrelor (Brilinta) 90 mg BID PO ; Start 05/13/18 at 21:00; Status UNV Non-Formulary Medication (Budesonide/ Formoterol Fumarate (Symbicort 80-4.5 Mcg Inhaler)) 1 puff BID IH ; Start 05/13/18 at 21:00; Status UNV Non-Formulary Medication (Carisoprodol (Soma)) 1 tab BID PO ; Start 05/13/18 at 21:00; Stop 05/17/18 at 17:42; Status DC Glimepiride (Amaryl) 4 mg DAILY PO Last administered on 05/18/18at 08:31; Start 05/13/18 at 10:00 Magnesium Oxide (Magnesium Oxide) 200 mg DAILY PO Last administered on at 08:31; Start 05/13/18 at 10:00 Metformin HCl (Glucophage) 500 mg BIDWMEALS PO ; Start 05/13/18 at 10:00; Stop 05/13/18 at 11:49; Status DC Non-Formulary Medication (Omeprazole ) 1 cap DAILY PO ; Start 05/14/18 at 09:00 ; Status UNV Insulin Human Lispro (HumaLOG) 8 units 1X ONCE SQ Last administered on at 12:08; Start 05/13/18 at 10:00; Stop 05/13/18 at 10:02; Status DC Info (Tpn Per Pharmacy) 1 each PRN DAILY PRN MC SEE COMMENTS; Start 05/13/18 at 09:30; Status Cancel Albuterol Sulfate (Ventolin Neb Soln) 2.5 mg Q6HRS NEB Last administered on at 13:02; Start 05/13/18 at 12:00; Stop 05/13/18 at 13:49; Status DC Budesonide (Pulmicort) 0.5 mg RTBID NEB ; Start 05/13/18 at 10:00; Stop at 17:25; Status DC Lidocaine/Sodium Bicarbonate (Buffered Lidocaine 1%) 3 ml STK-MED ONCE .ROUTE ; Start 05/13/18 at 10:56; Stop 05/13/18 at 10:57; Status DC Lidocaine/Sodium Bicarbonate (Buffered Lidocaine 1%) 3 ml 1X ONCE INJ Last administered on 05/13/18at 11:18; Start 05/13/18 at 11:15; Stop 05/13/18 at 11:31 ; Status DC Iodixanol (Visipaque 320) 50 ml STK-MED ONCE .ROUTE ; Start 05/13/18 at 11:20; Stop 05/13/18 at 11:21; Status DC Iodixanol (Visipaque 320) 50 ml STK-MED ONCE .ROUTE ; Start 05/13/18 at 11:21; Stop 05/13/18 at 11:22; Status DC Iodixanol (Visipaque 320) 50 ml 1X ONCE IV Last administered on 05/13/18at 11: 40; Start 05/13/18 at 11:45; Stop 05/13/18 at 11:48; Status DC Info (CONTRAST GIVEN -- Rx MONITORING) 1 each PRN DAILY PRN MC SEE COMMENTS; Start 05/13/18 at 12:00; Stop 05/15/18 at 11:59; Status DC Metformin HCl (Glucophage) 500 mg BIDWMEALS PO Last administered on 05/18/18at 08:31; Start 05/15/18 at 17:00 Magnesium Sulfate 50 ml @ 25 mls/hr 1X ONCE IV Last administered on 05/13/18at 13:22; Start 05/13/18 at 13:00; Stop 05/13/18 at 14:59; Status DC Sodium Phosphate 20 mmol/Dextrose 256.6667 ml @ 64.167 m... 1X ONCE IV Last administered on 05/13/18at 13:23; Start 05/13/18 at 13:00; Stop 05/13/18 at 16:59 ; Status DC Sodium Chloride 90 meq/Potassium Chloride 50 meq/ Potassium Phosphate 25 mmol/ Magnesium Sulfate 20 meq/Calcium Gluconate 10 meq/ Multivitamins 10 ml/Chromium / Copper/Manganese/ Seleni/Zn 1 ml/ Total Parenteral Nutrition/Amino Acids/ Dextrose/ Fat Emulsion Intravenous 1,512 ml @ 63 mls/hr TPN CONT IV Last administered on 05/13/18at 21:18; Start 05/13/18 at 22:00; Stop 05/14/18 at 21:59 ; Status DC Enoxaparin Sodium (Lovenox 40mg Syringe) 40 mg Q24H SQ ; Start 05/15/18 at 09:00 ; Stop 05/15/18 at 12:06; Status DC Albuterol Sulfate (Ventolin Neb Soln) 2.5 mg PRN Q6HRS PRN NEB SHORTNESS OF BREATH; Start 05/13/18 at 14:00 Aspirin (Ecotrin) 81 mg DAILYWBKFT PO Last administered on 05/18/18at 08:30; Start 05/13/18 at 17:30 Metoprolol Tartrate (Lopressor) 50 mg BID PO Last administered on 05/18/18at 08: 32; Start 05/13/18 at 21:00 Magnesium Sulfate/ Dextrose 100 ml @ 25 mls/hr 1X ONCE IV ; Start 05/13/18 at 18:00; Stop 05/13/18 at 21:59; Status UNV Insulin Glargine (Lantus) 14 units DAILY10 SQ Last administered on 05/14/18at 10 :26; Start 05/14/18 at 10:00; Stop 05/14/18 at 10:56; Status DC Insulin Human Lispro (HumaLOG) 5 units TIDWMEALS SQ Last administered on at 17:39; Start 05/14/18 at 08:00; Stop 05/18/18 at 08:43; Status DC Insulin Human Lispro (HumaLOG) 17 units 1X ONCE SQ Last administered on at 08:28; Start 05/14/18 at 08:30; Stop 05/14/18 at 08:31; Status DC Insulin Human Lispro (HumaLOG) 26 units 1X ONCE SQ Last administered on at 11:09; Start 05/14/18 at 11:00; Stop 05/14/18 at 11:01; Status DC Insulin Glargine (Lantus) 20 units DAILY10 SQ Last administered on 05/15/18at 13 :06; Start 05/15/18 at 10:00; Stop 05/15/18 at 15:08; Status DC Insulin Human Lispro (HumaLOG) 9 units 1X ONCE SQ Last administered on at 12:29; Start 05/14/18 at 12:15; Stop 05/14/18 at 12:16; Status DC Sodium Chloride 120 meq/Potassium Chloride 20 meq/ Potassium Phosphate 30 mmol/ Magnesium Sulfate 20 meq/Calcium Gluconate 5 meq/ Multivitamins 10 ml/Chromium/ Copper/Manganese/ Seleni/Zn 1 ml/ Total Parenteral Nutrition/Amino Acids/ Dextrose/ Fat Emulsion Intravenous 1,512 ml @ 63 mls/hr TPN CONT IV Last administered on 05/14/18at 21:39; Start 05/14/18 at 22:00; Stop 05/15/18 at 21:59 ; Status DC Morphine Sulfate (Morphine Sulfate) 1 mg PRN Q10MIN PRN IV SEVERE PAIN Last administered on 05/12/18at 12:35; Start 05/15/18 at 07:00; Stop 05/16/18 at 06:59 ; Status DC Ringer's Solution 1,000 ml @ 30 mls/hr Q24H IV ; Start 05/15/18 at 07:00; Stop 05/15/18 at 18:59; Status DC Lidocaine HCl (Xylocaine-Mpf 1% 2ml Vial) 2 ml PRN 1X PRN ID IV START; Start at 07:00; Stop 05/16/18 at 06:59; Status DC Hydromorphone HCl (Dilaudid) 0.5 mg PRN Q10MIN PRN IV SEV PAIN, Second choice; Start 05/15/18 at 07:00; Stop 05/16/18 at 06:59; Status DC Prochlorperazine Edisylate (Compazine) 5 mg PACU PRN PRN IV NAUSEA, MRX1 Last administered on 05/15/18at 12:35; Start 05/15/18 at 07:00; Stop 05/16/18 at 06:59 ; Status DC Insulin Human Lispro (HumaLOG) 2 units 1X ONCE SQ ; Start 05/14/18 at 21:45; Stop 05/14/18 at 21:50; Status DC Bupivacaine HCl/ Epinephrine Bitart (Sensorcain-Mpf Epi 0.5%-1:[id number]) 30 ml STK -MED ONCE .ROUTE Last administered on 05/15/18at 09:19; Start 05/15/18 at 07:04 ; Stop 05/15/18 at 07:05; Status DC Fentanyl Citrate (Fentanyl 5ml Vial) 250 mcg STK-MED ONCE .ROUTE ; Start at 07:21; Stop 05/15/18 at 07:22; Status DC Rocuronium [place] (Zemuron) 50 mg STK-MED ONCE .ROUTE ; Start 05/15/18 at 07:21 ; Stop 05/15/18 at 07:22; Status DC Dexamethasone Sodium Phosphate (Decadron) 20 mg STK-MED ONCE .ROUTE ; Start at 07:26; Stop 05/15/18 at 07:27; Status DC Ondansetron HCl (Zofran) 4 mg STK-MED ONCE .ROUTE ; Start 05/15/18 at 07:26; Stop 05/15/18 at 07:27; Status DC Propofol 20 ml @ As Directed STK-MED ONCE IV ; Start 05/15/18 at 07:26; Stop at 07:27; Status DC Lidocaine HCl (Lidocaine Pf 2% Vial) 5 ml STK-MED ONCE .ROUTE ; Start 05/15/18 at 07:26; Stop 05/15/18 at 07:27; Status DC Ephedrine Sulfate (Akovaz) 50 mg STK-MED ONCE .ROUTE ; Start 05/15/18 at 07:57; Stop 05/15/18 at 07:58; Status DC Rocuronium [place] (Zemuron) 50 mg STK-MED ONCE .ROUTE ; Start 05/15/18 at 09:13 ; Stop 05/15/18 at 09:14; Status DC Glycopyrrolate (Robinul) 1 mg STK-MED ONCE .ROUTE ; Start 05/15/18 at 09:41; Stop 05/15/18 at 09:42; Status DC Neostigmine Methylsulfate (Bloxiverz) 10 mg STK-MED ONCE .ROUTE ; Start at 09:41; Stop 05/15/18 at 09:42; Status DC Sevoflurane (Ultane) 90 ml STK-MED ONCE IH ; Start 05/15/18 at 09:42; Stop 05/15 at 09:43; Status DC Labetalol HCl (Normodyne Iv Push) 20 mg 1X ONCE IVP ; Start 05/15/18 at 10:30; Stop 05/15/18 at 10:31; Status DC Ketorolac Tromethamine (Toradol For Or Only) 30 mg STK-MED ONCE INJ ; Start at 12:02; Stop 05/15/18 at 12:03; Status DC Enoxaparin Sodium (Lovenox 40mg Syringe) 40 mg Q24H SQ Last administered on at 08:32; Start 05/16/18 at 08:00 Sodium Chloride (Normal Saline Flush) 3 ml QSHIFT PRN IV AFTER MEDS AND BLOOD DRAWS; Start 05/15/18 at 12:15 Naloxone HCl (Narcan) 0.4 mg PRN Q2MIN PRN IV SEE INSTRUCTIONS; Start 05/15/18 at 12:15 Sodium Chloride 1,000 ml @ 25 mls/hr Q24H IV Last administered on 05/15/18at 15 :34; Start 05/15/18 at 12:01 Morphine Sulfate 30 ml @ 0 mls/hr CONT PRN PRN IV PER PROTOCOL Last administered on 05/17/18at 23:59; Start 05/15/18 at 12:15 Ondansetron HCl (Zofran) 4 mg PRN Q6HRS PRN IV NAUESA, 1ST CHOICE; Start at 12:15 Fentanyl Citrate (Fentanyl 2ml Vial) 100 mcg STK-MED ONCE .ROUTE ; Start at 12:39; Stop 05/15/18 at 12:40; Status DC Insulin Glargine (Lantus) 10 units 1X STAT SQ ; Start 05/15/18 at 13:01; Stop 05/15/18 at 13:05; Status DC Insulin Human Lispro (HumaLOG) 4 units ONCE STAT SQ Last administered on at 13:07; Start 05/15/18 at 13:01; Stop 05/15/18 at 13:05; Status DC Sodium Chloride 120 meq/Potassium Chloride 20 meq/ Potassium Phosphate 30 mmol/ Magnesium Sulfate 20 meq/Calcium Gluconate 5 meq/ Multivitamins 10 ml/Chromium/ Copper/Manganese/ Seleni/Zn 1 ml/ Total Parenteral Nutrition/Amino Acids/ Dextrose/ Fat Emulsion Intravenous 1,512 ml @ 63 mls/hr TPN CONT IV Last administered on 05/15/18at 21:52; Start 05/15/18 at 22:00; Stop 05/16/18 at 21:59 ; Status DC Insulin Human Lispro (HumaLOG) 17 units 1X ONCE SQ Last administered on at 15:48; Start 05/15/18 at 15:15; Stop 05/15/18 at 15:16; Status DC Insulin Glargine (Lantus) 25 units DAILY10 SQ Last administered on 05/16/18at 08 :42; Start 05/16/18 at 10:00; Stop 05/16/18 at 10:04; Status DC Magnesium Sulfate/ Dextrose 100 ml @ 100 mls/hr 1X ONCE IV Last administered on 05/15/18at 18:08; Start 05/15/18 at 16:30; Stop 05/15/18 at 17:29; Status DC Insulin Glargine (Lantus) 15 units 1X ONCE SQ Last administered on 05/15/18at 21:34; Start 05/15/18 at 21:15; Stop 05/15/18 at 21:50; Status DC Insulin Human Lispro (HumaLOG) 17 units 1X ONCE SQ Last administered on at 21:33; Start 05/15/18 at 21:15; Stop 05/15/18 at 21:50; Status DC Insulin Human Lispro (HumaLOG) 5 units TIDWMEALS SQ ; Start 05/16/18 at 08:00; Status UNV Insulin Glargine (Lantus) 25 units BID SQ ; Start 05/16/18 at 21:00; Stop at 21:00; Status DC Insulin Human Lispro (HumaLOG) 20 units 1X ONCE SQ Last administered on at 10:30; Start 05/16/18 at 10:30; Stop 05/16/18 at 10:31; Status DC Insulin Glargine (Lantus) 35 units BID SQ Last administered on 05/18/18at 08:44 ; Start 05/16/18 at 21:00 Enoxaparin Sodium (Lovenox 40mg Syringe) 40 mg Q24H SQ ; Start 05/16/18 at 12:00 ; Status Cancel Insulin Glargine (Lantus) 20 units 1X ONCE SQ Last administered on 05/16/18at 12:07; Start 05/16/18 at 12:00; Stop 05/16/18 at 12:01; Status DC Magnesium Sulfate 50 ml @ 25 mls/hr 1X ONCE IV Last administered on 05/16/18at 13:57; Start 05/16/18 at 12:00; Stop 05/16/18 at 13:59; Status DC Insulin Human Lispro (HumaLOG) 25 units 1X ONCE SQ ; Start 05/16/18 at 12:30; Stop 05/16/18 at 12:31; Status DC Sodium Chloride 120 meq/Potassium Chloride 20 meq/ Potassium Phosphate 30 mmol/ Magnesium Sulfate 20 meq/Calcium Gluconate 5 meq/ Multivitamins 10 ml/Chromium/ Copper/Manganese/ Seleni/Zn 1 ml/ Total Parenteral Nutrition/Amino Acids/ Dextrose/ Fat Emulsion Intravenous 1,512 ml @ 63 mls/hr TPN CONT IV Last administered on 05/16/18at 22:28; Start 05/16/18 at 22:00; Stop 05/17/18 at 21:59 ; Status DC Budesonide (Pulmicort) 0.5 mg PRN BID PRN NEB WHEEZING; Start 05/16/18 at 20:00 Insulin Human Lispro (HumaLOG) 0-9 UNITS TIDWMEALS SQ Last administered on 05/18at 08:43; Start 05/17/18 at 12:00 Dextrose (Dextrose 50%-Water Syringe) 12.5 gm PRN Q15MIN PRN IV SEE COMMENTS; Start 05/17/18 at 08:30 Sodium Chloride 140 meq/Potassium Chloride 20 meq/ Potassium Phosphate 30 mmol/ Magnesium Sulfate 20 meq/Calcium Gluconate 5 meq/ Multivitamins 10 ml/Chromium/ Copper/Manganese/ Seleni/Zn 1 ml/ Total Parenteral Nutrition/Amino Acids/ Dextrose/ Fat Emulsion Intravenous 1,512 ml @ 63 mls/hr TPN CONT IV Last administered on 05/17/18at 21:58; Start 05/17/18 at 22:00; Stop 05/18/18 at 21:59 Insulin Human Lispro (HumaLOG) 15 units TIDWMEALS SQ ; Start 05/18/18 at 12:00 Active Scripts Active Cipro (Ciprofloxacin Hcl) 500 Mg Tablet 1 Tab PO BID 14 Days Biotene Moisturizing Mouth (Saliva Stimulant Agents Comb.3) 44.3 Ml [place] 2 [place] PO PRN Q15MIN PRN 30 Days Lantus Solostar (Insulin Glargine,Hum.rec.anlog) 100 Unit/1 Ml Insuln.pen 12 Units SQ DAILY10 30 Days Culturelle (Lactobacillus Rhamnosus Gg) 1 Each Cap.sprink 1 Cap PO BID 28 Days Lipitor (Atorvastatin Calcium) 40 Mg Tablet 1 Tab PO QHS Aspirin Ec (Aspirin) 81 Mg Tablet.dr 81 Mg PO DAILYWBKFT Brilinta (Ticagrelor) 90 Mg Tablet 90 Mg PO BID Reported Metformin Hcl 500 Mg Tablet 500 Mg PO BIDWMEALS Soma (Carisoprodol) 350 Mg Tablet 1 Tab PO BID Omeprazole 40 Mg Capsule.dr 1 Cap PO DAILY Symbicort 80-4.5 Mcg Inhaler (Budesonide/Formoterol Fumarate) 10.2 Gm Hfa.aer.ad 1 Puff IH BID Amaryl (Glimepiride) 4 Mg Tablet 1 Tab PO DAILY Amlodipine Besylate 5 Mg Tablet 5 Mg PO DAILY Carvedilol (Carvedilol) 12.5 Mg Tablet 1 Tab PO BID Colestipol Hcl 1 Gm Tablet 2 Gm PO 1X Magnesium Oxide 400 Mg Tablet 250 Tab PO DAILY Vitamin D3 (Cholecalciferol (Vitamin D3)) 1,000 Unit Tablet 2,000 Tab PO DAILY Vitals/I & O Vital Sign - Last 24 Hours 05/17/18 05/17/18 05/17/18 05/17/18 11:00 11:08 15:00 19:00 Temp 98.9 98.2 97.9 98.9 98.2 97.9 Pulse 53 113 117 Resp 18 18 18 B/P (MAP) 102/40 (60) 104/70 (81) 128/58 (81) Pulse Ox 95 96 94 O2 Delivery Room Air Room Air Room Air Room Air 05/17/18 05/17/18 05/17/18 05/17/18 20:00 20:09 23:00 23:59 Temp 98.5 98.5 Pulse 113 95 Resp 18 B/P (MAP) 104/70 115/60 (78) Pulse Ox 93 93 O2 Delivery Room Air Room Air Room Air 05/18/18 05/18/18 05/18/18 05/18/18 00:29 03:00 07:00 07:20 Temp 97.5 97.9 97.5 97.9 Pulse 88 77 Resp 20 18 18 B/P (MAP) 121/53 (75) 122/61 (81) Pulse Ox 93 94 95 O2 Delivery Room Air Room Air Room Air Room Air 05/18/18 05/18/18 08:31 08:32 Pulse 77 77 B/P (MAP) 122/61 122/61 Intake and Output 05/17/18 05/17/18 05/18/18 14:59 22:59 06:59 Intake Total 240 ml 0 ml 100 ml Output Total 350 ml 625 ml 800 ml Balance -110 ml -625 ml -700 ml Nutrition Consultation Dietary Evaluation: Recommendations by RD: PPN/TPN Comments: Recommend continue current TPN order Diet advancement per GI to regular as tollerated Expected Outcomes/Goals: Advancement to Regular diet as tollerated Meet >75% estimated needs through P.O. intake Interpretation of weight loss: >7.5% in 3 months Malnutrition Findings: Body Fat Depletion (Non Severe: Mild Depletion Weight Status: Appropriate NATHAN GUTIERREZ MD May 18, 2018 10:31
--- NOTE | 2018-05-18 10:35 | PDOC ---
DAYNE NEWBERRY SUPERVISOR IN CHARGE 05/18/18 1035: SURGICAL PROGRESS NOTE Subjective resting no issues Vital Signs Vital Signs Date Time Temp Pulse Resp B/P (MAP) Pulse Ox O2 Delivery O2 Flow Rate FiO2 05/18/18 08:32 77 122/61 05/18/18 07:20 Room Air 05/18/18 07:00 97.9 18 95 97.9 I&O Intake and Output 05/18/18 07:00 Intake Total 340 ml Output Total 1775 ml Balance -1435 ml Intake Oral 340 ml Output Urine Total 150 ml Stool Total 1150 ml Gastric Drainage Total 475 ml # Voids 2 General: Alert, Oriented X3, Cooperative, No acute distress Abdomen: Soft, Other (ostomy with stool, incision c/d/i, no erythema) Labs Laboratory Tests Test 05/16/18 11:45 05/16/18 14:02 05/16/18 16:28 05/16/18 20:42 Glucose (Fingerstick) 325 mg/dL (70-99) 141 mg/dL (70-99) 99 mg/dL (70-99) 107 mg/dL (70-99) Test 05/17/18 00:45 05/17/18 05:55 05/17/18 07:31 05/17/18 11:21 Glucose (Fingerstick) 154 mg/dL (70-99) 161 mg/dL (70-99) 214 mg/dL (70-99) White Blood Count 30.1 x10^3/uL (4.0-11.0) Red Blood Count 3.54 x10^6/uL (4.30-5.70) Hemoglobin 10.2 g/dL (13.0-17.5) Hematocrit 30.8 % (39.0-53.0) Mean Corpuscular Volume 87 fL (79-100) Mean Corpuscular Hemoglobin 29 pg (25-35) Mean Corpuscular Hemoglobin Concent 33 g/dL (31-37) Red Cell Distribution Width 14.9 % (11.5-14.5) Platelet Count 318 x10^3/uL (140-400) Neutrophils (%) (Auto) 88 % (31-73) Lymphocytes (%) (Auto) 5 % (24-48) Monocytes (%) (Auto) 6 % (0-9) Eosinophils (%) (Auto) 0 % (0-3) Basophils (%) (Auto) 0 % (0-3) Neutrophils # (Auto) 26.6 x10^3uL (1.8-7.7) Lymphocytes # (Auto) 1.5 x10^3/uL (1.0-4.8) Monocytes # (Auto) 1.8 x10^3/uL (0.0-1.1) Eosinophils # (Auto) 0.1 x10^3/uL (0.0-0.7) Basophils # (Auto) 0.1 x10^3/uL (0.0-0.2) Sodium Level 132 mmol/L (136-145) Potassium Level 4.7 mmol/L (3.5-5.1) Chloride Level 96 mmol/L (98-107) Carbon Dioxide Level 29 mmol/L (21-32) Anion Gap 7 (6-14) Blood Urea Nitrogen 16 mg/dL (8-26) Creatinine 0.9 mg/dL (0.7-1.3) Estimated GFR (Cockcroft-Gault) 81.0 BUN/Creatinine Ratio 18 (6-20) Glucose Level 161 mg/dL (70-99) Hemoglobin A1c 11.3 % (4.8-5.6) Calcium Level 7.9 mg/dL (8.5-10.1) Phosphorus Level 3.2 mg/dL (2.6-4.7) Magnesium Level 1.9 mg/dL (1.8-2.4) Total Bilirubin 0.4 mg/dL (0.2-1.0) Aspartate Amino Transf (AST/SGOT) 44 U/L (15-37) Alanine Aminotransferase (ALT/SGPT) 80 U/L (16-63) Alkaline Phosphatase 144 U/L (46-116) Total Protein 5.9 g/dL (6.4-8.2) Albumin 1.8 g/dL (3.4-5.0) Albumin/Globulin Ratio 0.4 (1.0-1.7) Test 05/17/18 15:00 05/17/18 16:23 05/17/18 20:33 05/18/18 05:00 Urine Collection Type Void Urine Color Brown Urine Clarity Cloudy Urine pH 5.5 Urine Specific [place] >=1.030 Urine Protein 100 mg/dL (NEG-TRACE) Urine Glucose (UA) >=1000 mg/dL (NEG) Urine Ketones (Stick) Trace mg/dL (NEG) Urine Blood Large (NEG) Urine Nitrite Negative (NEG) Urine Bilirubin Negative (NEG) Urine Urobilinogen Dipstick 0.2 mg/dL (0.2 mg/dL) Urine Leukocyte Esterase Small (NEG) Urine RBC Tntc /HPF (0-2) Urine WBC 11-20 /HPF (0-4) Urine Bacteria 0 /HPF (0-FEW) Urine Mucus Mod /LPF Glucose (Fingerstick) 195 mg/dL (70-99) 135 mg/dL (70-99) White Blood Count 17.3 x10^3/uL (4.0-11.0) Red Blood Count 2.92 x10^6/uL (4.30-5.70) Hemoglobin 8.2 g/dL (13.0-17.5) Hematocrit 25.6 % (39.0-53.0) Mean Corpuscular Volume 88 fL (79-100) Mean Corpuscular Hemoglobin 28 pg (25-35) Mean Corpuscular Hemoglobin Concent 32 g/dL (31-37) Red Cell Distribution Width 14.9 % (11.5-14.5) Platelet Count 306 x10^3/uL (140-400) Neutrophils (%) (Auto) 85 % (31-73) Lymphocytes (%) (Auto) 8 % (24-48) Monocytes (%) (Auto) 5 % (0-9) Eosinophils (%) (Auto) 2 % (0-3) Basophils (%) (Auto) 0 % (0-3) Neutrophils # (Auto) 14.6 x10^3uL (1.8-7.7) Lymphocytes # (Auto) 1.3 x10^3/uL (1.0-4.8) Monocytes # (Auto) 0.9 x10^3/uL (0.0-1.1) Eosinophils # (Auto) 0.4 x10^3/uL (0.0-0.7) Basophils # (Auto) 0.1 x10^3/uL (0.0-0.2) Test 05/18/18 07:43 Glucose (Fingerstick) 272 mg/dL (70-99) Laboratory Tests Test 05/17/18 11:21 05/17/18 15:00 05/17/18 16:23 05/17/18 20:33 Glucose (Fingerstick) 214 mg/dL (70-99) 195 mg/dL (70-99) 135 mg/dL (70-99) Urine Collection Type Void Urine Color Brown Urine Clarity Cloudy Urine pH 5.5 Urine Specific [place] >=1.030 Urine Protein 100 mg/dL (NEG-TRACE) Urine Glucose (UA) >=1000 mg/dL (NEG) Urine Ketones (Stick) Trace mg/dL (NEG) Urine Blood Large (NEG) Urine Nitrite Negative (NEG) Urine Bilirubin Negative (NEG) Urine Urobilinogen Dipstick 0.2 mg/dL (0.2 mg/dL) Urine Leukocyte Esterase Small (NEG) Urine RBC Tntc /HPF (0-2) Urine WBC 11-20 /HPF (0-4) Urine Bacteria 0 /HPF (0-FEW) Urine Mucus Mod /LPF Test 05/18/18 05:00 05/18/18 07:43 White Blood Count 17.3 x10^3/uL (4.0-11.0) Red Blood Count 2.92 x10^6/uL (4.30-5.70) Hemoglobin 8.2 g/dL (13.0-17.5) Hematocrit 25.6 % (39.0-53.0) Mean Corpuscular Volume 88 fL (79-100) Mean Corpuscular Hemoglobin 28 pg (25-35) Mean Corpuscular Hemoglobin Concent 32 g/dL (31-37) Red Cell Distribution Width 14.9 % (11.5-14.5) Platelet Count 306 x10^3/uL (140-400) Neutrophils (%) (Auto) 85 % (31-73) Lymphocytes (%) (Auto) 8 % (24-48) Monocytes (%) (Auto) 5 % (0-9) Eosinophils (%) (Auto) 2 % (0-3) Basophils (%) (Auto) 0 % (0-3) Neutrophils # (Auto) 14.6 x10^3uL (1.8-7.7) Lymphocytes # (Auto) 1.3 x10^3/uL (1.0-4.8) Monocytes # (Auto) 0.9 x10^3/uL (0.0-1.1) Eosinophils # (Auto) 0.4 x10^3/uL (0.0-0.7) Basophils # (Auto) 0.1 x10^3/uL (0.0-0.2) Glucose (Fingerstick) 272 mg/dL (70-99) Assessment/Plan advance diet ostomy care dc iron pellet tester soon LUIZA JOHNSON MD 05/18/18 1504: SURGICAL PROGRESS NOTE Assessment/Plan will ADAT pt notes large amount of urination, will d/c IVF and TPN abd soft pt does note some pain, will start PO pain meds pt's notes some confusion, will d/c SUPERVISOR [employer]SEMBLY DAYNE NEWBERRY APRN May 18, 2018 10:35 LUIZA JOHNSON MD May 18, 2018 15:04
[2018-05-18 11:00] VITALS: BP 112/54
[2018-05-18] MEDS: IV NORMAL SALINE 1000ML BAG 1,000 ML IV SCH (12:01)
--- NOTE | 2018-05-18 12:07 | NUR ---
SS following up with discharge planning. SS met with pt and pt's spouse to discuss discharge planning. Pt's RN reported that at this time pt is requiring three IV antibiotics and TPN and wound care. SS discussed the possibility of LTAC with pt and spouse. Pt and spouse agreeable to referral to [facility], ; fax [phone]. [place] unit she wanted pt to go to [place]. SS phoned and faxed referral to [facility]. SS will await acceptance decision and will proceed accordingly.
--- NOTE | 2018-05-18 13:33 | NUR ---
Pharmacy TPN Dosing Note S: EDITH SELBY is a 82 year old M Currently receiving Central Continuous TPN started 05/13/18 B:Pertinent PMH: ABDOMINAL ABSCESS/PERFORATION Height: 5 feet, 10 inches Weight: 62.980943 kg Current diet: NPO LABS: Sodium: 132 Potassium: 4.7 Chloride: 96 Calcium: 7.9 Corrected Calcium: 9.66 Magnesium: 1.9 CO2: 29 SCr: 0.9 Glucose: 161 Albumin: 1.8 AST: 44 ALT: 80 TPN FORMULA: TPN TYPE: Central Continuous AMINO ACIDS: 60 gm DEXTROSE: 195 gm LIPIDS: 20 gm SODIUM CHLORIDE: 140 mEq SODIUM ACETATE: mEq SODIUM PHOSPHATE: mmol POTASSIUM CHLORIDE: 20 mEq POTASSIUM ACETATE: mEq POTASSIUM PHOSPHATE: 30 mmol MAGNESIUM: 20 mEq CALCIUM: 10 mEq INSULIN: units MULTIPLE VITAMIN: 10 ml TRACE ELEMENTS: 1 ml(s) TPN PLAN: NO CHANGES IN TPN, NO LAB TODAY, PT TOLERATED FULL LIQUID TODAY. R: Continue TPN AT 63ML/HR Will monitor electrolytes, glucose, and tolerance to TPN. NEGAR FONSECA [facility], 05/18/18 2203
--- NOTE | 2018-05-18 14:36 | NUR ---
SS following up with discharge planning. Pt accepted at [facility], ; fax [phone]. Physician notified. SS will await discharge orders and will proceed accordingly.
[2018-05-18 15:00] VITALS: BP 113/51
--- NOTE | 2018-05-18 16:30 | NUR ---
Approximately 1630 a thud was heard from the nurses desk. Upon entering the room, pt was standing to unplug IV pump. Pt. stated, I need to go to the bathroom, then pt stated, "I hit the floor". Pt. admitted to falling and hitting L neck, redness noted. Pt. denies pain. Abd incision drsg dry and intact, ostomy bag intact. 164 Dr. Yancey notified of pt's reported fall and pt stating pt hit his neck. No additional orders received.
--- NOTE | 2018-05-18 17:39 | NUR ---
Wound/Ostomy Ostomy teaching scheduled with at 2pm on 05/20/18 with Ostomy nurse
[2018-05-18 19:20] VITALS: BP 103/64
[2018-05-18] MEDS: oxyCODONE/APAP 5/325 1 TAB TABLET PO PRN (20:58)
[2018-05-18] MEDS ORDERED: [UNRECOGNIZED DRUG - OTHER] IV SCH ×10 (22:00)
[2018-05-18] MEDS ORDERED: TOTAL PARENTERAL NUTRITION IV SCH ×10 (22:00)
[2018-05-18] MEDS ORDERED: DEXTROSE 70% IV SCH ×10 (22:00)
[2018-05-18] MEDS ORDERED: AMINO ACID IV SCH ×10 (22:00)
[2018-05-18 23:15] VITALS: BP 102/60
[2018-05-19] VITALS (7 sets, daily range): BP systolic 103–122; BP diastolic 56–68
[2018-05-19] MEDS: PANTOPRAZOLE IV PUSH 40 MG VIAL. IVP SCH (05:49)
[2018-05-19] MEDS: MEROPENEM 500 MG in IV NORMAL SALINE 50ML 50 ML IV SCH (05:49)
[2018-05-19] MEDS: CLOTRIMAZOLE 10 MG TROCHE. MM SCH ×5 (05:50→20:28)
[2018-05-19 06:07] LABS: BASO # 0.1 x10^3/uL (0.0-0.2); BASO % 1 % (0-3); EOS # 0.3 x10^3/uL (0.0-0.7); EOS % 2 % (0-3); HEMOGLOBIN 7.9 g/dL (13.0-17.5); LYMPH # 1.1 x10^3/uL (1.0-4.8); LYMPH % 7 % (24-48); MEAN CORPUSCULAR HEMOGLOBIN 29 pg (25-35); MEAN CORPUSCULAR HGB CONC 33 g/dL (31-37); MEAN CORPUSCULAR VOLUME 87 fL (79-100); MONO # 0.9 x10^3/uL (0.0-1.1); MONO % 5 % (0-9); NEUT # 14.2 x10^3uL (1.8-7.7); NEUT % 85 % (31-73); PLATELET COUNT 326 x10^3/uL (140-400); RED BLOOD COUNT 2.76 x10^6/uL (4.30-5.70); WHITE BLOOD COUNT 16.7 x10^3/uL (4.0-11.0)
[2018-05-19] MEDS: INSULIN LISPRO 300 UNITS/3 ML INSULN.PEN. SQ SCH ×3 (08:00→17:00)
[2018-05-19] MEDS: ENOXAPARIN 40 MG/0.4 ML SYRINGE. SQ SCH (08:00)
[2018-05-19] MEDS: MAGNESIUM OXIDE 400 MG TABLET PO SCH (08:01)
[2018-05-19] MEDS: CHOLECALCIFEROL (VITAMIN D3) 1,000 UNIT TABLET PO SCH (08:01)
[2018-05-19] MEDS: ASPIRIN ENTERIC COATED 81 MG TABLET.DR. PO SCH (08:01)
[2018-05-19] MEDS: LACTOBACILLUS RHAMNOSUS GG 1 CAPSULE. PO SCH ×2 (08:01→20:28)
[2018-05-19] MEDS: oxyCODONE/APAP 5/325 1 TAB TABLET PO PRN ×4 (08:03→23:21)
[2018-05-19] MEDS: MICAFUNGIN 100 MG in IV DEXTROSE 5% 100ML 100 ML IV SCH (08:10)
[2018-05-19] MEDS ORDERED: MORPHINE SULFATE 4 MG/ML VIAL. IV PRN (09:00)
[2018-05-19] MEDS: amLODIPine BESYLATE 5 MG TABLET PO SCH ×2 (09:00→10:04)
--- NOTE | 2018-05-19 09:14 | PDOC ---
Infectious Disease Note Subjective Subjective feeling good says RODOLFO REYNOLDS no n/v/d/sob/fever Vital Sign Vital Signs Vital Signs Date Time Temp Pulse Resp B/P (MAP) Pulse Ox O2 Delivery O2 Flow Rate FiO2 05/19/18 08:03 97 Room Air 05/19/18 07:00 97.9 89 18 112/61 (78) 97.9 Physical Exam PHYSICAL EXAM GENERAL: Propped up in bed, alert, NAD HEENT: Pupils equal and reactive. Oral cavity, pharynx clear, dentures NECK: Supple, no JVD. LUNGS: Clear to auscultation, HEART: S1, S2. ABDOMEN: Mildly distended, soft, tender to light palpation, hypoactive BS, dressing dry. ostomy bag sealed. JEREMY LLQ out : Ornelas in place EXTREMITIES: No clubbing, cyanosis or gross edema. SKIN: Warm to touch without signs of rash. NEUROLOGIC: Alert, nonfocal and appropriate. RUE-PICC (05/13) wo signs of complications Labs Lab Laboratory Tests Test 05/18/18 11:17 05/18/18 16:44 05/18/18 20:42 05/19/18 05:00 Glucose (Fingerstick) 233 mg/dL (70-99) 114 mg/dL (70-99) 178 mg/dL (70-99) White Blood Count 16.7 x10^3/uL (4.0-11.0) Red Blood Count 2.76 x10^6/uL (4.30-5.70) Hemoglobin 7.9 g/dL (13.0-17.5) Hematocrit 24.0 % (39.0-53.0) Mean Corpuscular Volume 87 fL (79-100) Mean Corpuscular Hemoglobin 29 pg (25-35) Mean Corpuscular Hemoglobin Concent 33 g/dL (31-37) Red Cell Distribution Width 15.0 % (11.5-14.5) Platelet Count 326 x10^3/uL (140-400) Neutrophils (%) (Auto) 85 % (31-73) Lymphocytes (%) (Auto) 7 % (24-48) Monocytes (%) (Auto) 5 % (0-9) Eosinophils (%) (Auto) 2 % (0-3) Basophils (%) (Auto) 1 % (0-3) Neutrophils # (Auto) 14.2 x10^3uL (1.8-7.7) Lymphocytes # (Auto) 1.1 x10^3/uL (1.0-4.8) Monocytes # (Auto) 0.9 x10^3/uL (0.0-1.1) Eosinophils # (Auto) 0.3 x10^3/uL (0.0-0.7) Basophils # (Auto) 0.1 x10^3/uL (0.0-0.2) Erythrocyte Sedimentation Rate 103 (0-15) Test 05/19/18 07:39 05/19/18 08:53 Glucose (Fingerstick) 57 mg/dL (70-99) 142 mg/dL (70-99) Micro ANAEROBIC-AEROBIC CULTURE Final Final report ANAEROBIC RES 1 Final Comment No anaerobic growth in 72 hours. AEROBIC CULT Final Final report AEROBIC RES 1 Final Escherichia coli 4+ AEROBIC RES 2 Final Yeast isolated. 4+ Request for further identification must be made within 1 week. AEROBIC RES 3 Final Mixed skin mireya 4+ ANTIMICROBIAL SUSCEPTIBILITY Final Comment S = Susceptible; I = Intermediate; R = Resistant P = Positive; N = Negative MICS are expressed in micrograms per mL Antibiotic RSLT#1 RSLT#2 RSLT#3 RSLT#4 Amoxicillin/Clavulanic Acid S =8 Ampicillin R =R CONTINUED ON NEXT PAGE RUN DATE: 05/15/18 PAGE 2 RUN TIME: 1810 [facility] [address] [place] [address] Jonathan Sauceda M.D., Public Relations Consultant SPEC: [id number] PATIENT: EDITH SELBY [id number] ( Continued) Procedure Result ANTIMICROBIAL SUSCEPTIBILITY Final (continued) Cefepime S<=0.12 Ceftriaxone S<=0.25 Cefuroxime R>=64 Ciprofloxacin R>=4 Ertapenem S<=0.12 Gentamicin S<=1 Imipenem S<=0.25 Levofloxacin R>=8 Meropenem S<=0.25 Piperacillin/Tazobactam S<=4 Tetracycline S<=1 Tobramycin S<=1 Trimethoprim/Sulfa S<=20 GRAM STAIN Final Final report GRAM STAIN RES 1 Final Comment No white blood cells seen. GRAM STAIN RES 2 Final Comment Few gram negative rods. GRAM STAIN RES 3 Final Comment Few gram positive cocci GRAM STAIN RES 4 Final Comment Few gram positive rods. 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 Recurrent abdominal abscesses s/p drain on 05/11 with growth of mixed mireya, yeast and E. coli (R quinolones, amp, cefuroxime) - h/o IR drain on 04/21 with growth of Bacteroides, E. coli (R quinolones), Klebsiella and (yeast on GS) Leukocytosis - likely reactive in part to steroids and surgery on 05/15 Transaminitis - better Thrush - better DM s/p cystoscopy with bilateral stent placement, 05/15. Plan Plan of Care Cont Meropenem and Micafungin,, change to po omnicef Mycelex kalyan Monitor WBC/temp am labs have been ordered Further ID workup on yeast requested, spoke with heraclio D/ALEXA Mix RN, MD May 19, 2018 09:14
--- NOTE | 2018-05-19 09:21 | NUR ---
Message sent to MD about BG 57, rechecked after protocol 142, verifying which medications to hold, or administer. This nurse will continue to monitor.
[2018-05-19] MEDS: CEFDINIR 300 MG CAPSULE PO SCH ×2 (10:03→20:29)
[2018-05-19] MEDS: metFORMIN 500 MG TABLET PO SCH ×2 (10:03→17:51)
[2018-05-19] MEDS: METOPROLOL TART IMMED RELEASE 50 MG TABLET. PO SCH ×2 (10:04→20:30)
--- NOTE | 2018-05-19 10:20 | PDOC ---
SURGICAL PROGRESS NOTE Subjective Pt with c/o some incisional pain, sleeping, but awakens Vital Signs Vital Signs Date Time Temp Pulse Resp B/P (MAP) Pulse Ox O2 Delivery O2 Flow Rate FiO2 05/19/18 10:04 89 112/61 05/19/18 08:03 97 Room Air 05/19/18 07:00 97.9 18 97.9 I&O Intake and Output 05/19/18 07:00 Intake Total 3360 ml Output Total 1550 ml Balance 1810 ml Intake Oral 1360 ml IV Total 2000 ml Output Urine Total 700 ml Stool Total 850 ml # Voids 6 General: Alert, Oriented X3, Cooperative, No acute distress Abdomen: Other (mild TTP) Labs Laboratory Tests Test 05/17/18 11:21 05/17/18 15:00 05/17/18 16:23 05/17/18 20:33 Glucose (Fingerstick) 214 mg/dL (70-99) 195 mg/dL (70-99) 135 mg/dL (70-99) Urine Collection Type Void Urine Color Brown Urine Clarity Cloudy Urine pH 5.5 Urine Specific [place] >=1.030 Urine Protein 100 mg/dL (NEG-TRACE) Urine Glucose (UA) >=1000 mg/dL (NEG) Urine Ketones (Stick) Trace mg/dL (NEG) Urine Blood Large (NEG) Urine Nitrite Negative (NEG) Urine Bilirubin Negative (NEG) Urine Urobilinogen Dipstick 0.2 mg/dL (0.2 mg/dL) Urine Leukocyte Esterase Small (NEG) Urine RBC Tntc /HPF (0-2) Urine WBC 11-20 /HPF (0-4) Urine Bacteria 0 /HPF (0-FEW) Urine Mucus Mod /LPF Test 05/18/18 05:00 05/18/18 07:43 05/18/18 11:17 05/18/18 16:44 White Blood Count 17.3 x10^3/uL (4.0-11.0) Red Blood Count 2.92 x10^6/uL (4.30-5.70) Hemoglobin 8.2 g/dL (13.0-17.5) Hematocrit 25.6 % (39.0-53.0) Mean Corpuscular Volume 88 fL (79-100) Mean Corpuscular Hemoglobin 28 pg (25-35) Mean Corpuscular Hemoglobin Concent 32 g/dL (31-37) Red Cell Distribution Width 14.9 % (11.5-14.5) Platelet Count 306 x10^3/uL (140-400) Neutrophils (%) (Auto) 85 % (31-73) Lymphocytes (%) (Auto) 8 % (24-48) Monocytes (%) (Auto) 5 % (0-9) Eosinophils (%) (Auto) 2 % (0-3) Basophils (%) (Auto) 0 % (0-3) Neutrophils # (Auto) 14.6 x10^3uL (1.8-7.7) Lymphocytes # (Auto) 1.3 x10^3/uL (1.0-4.8) Monocytes # (Auto) 0.9 x10^3/uL (0.0-1.1) Eosinophils # (Auto) 0.4 x10^3/uL (0.0-0.7) Basophils # (Auto) 0.1 x10^3/uL (0.0-0.2) Glucose (Fingerstick) 272 mg/dL (70-99) 233 mg/dL (70-99) 114 mg/dL (70-99) Test 05/18/18 20:42 05/19/18 05:00 05/19/18 07:39 05/19/18 08:53 Glucose (Fingerstick) 178 mg/dL (70-99) 57 mg/dL (70-99) 142 mg/dL (70-99) White Blood Count 16.7 x10^3/uL (4.0-11.0) Red Blood Count 2.76 x10^6/uL (4.30-5.70) Hemoglobin 7.9 g/dL (13.0-17.5) Hematocrit 24.0 % (39.0-53.0) Mean Corpuscular Volume 87 fL (79-100) Mean Corpuscular Hemoglobin 29 pg (25-35) Mean Corpuscular Hemoglobin Concent 33 g/dL (31-37) Red Cell Distribution Width 15.0 % (11.5-14.5) Platelet Count 326 x10^3/uL (140-400) Neutrophils (%) (Auto) 85 % (31-73) Lymphocytes (%) (Auto) 7 % (24-48) Monocytes (%) (Auto) 5 % (0-9) Eosinophils (%) (Auto) 2 % (0-3) Basophils (%) (Auto) 1 % (0-3) Neutrophils # (Auto) 14.2 x10^3uL (1.8-7.7) Lymphocytes # (Auto) 1.1 x10^3/uL (1.0-4.8) Monocytes # (Auto) 0.9 x10^3/uL (0.0-1.1) Eosinophils # (Auto) 0.3 x10^3/uL (0.0-0.7) Basophils # (Auto) 0.1 x10^3/uL (0.0-0.2) Erythrocyte Sedimentation Rate 103 (0-15) Laboratory Tests Test 05/18/18 11:17 05/18/18 16:44 05/18/18 20:42 05/19/18 05:00 Glucose (Fingerstick) 233 mg/dL (70-99) 114 mg/dL (70-99) 178 mg/dL (70-99) White Blood Count 16.7 x10^3/uL (4.0-11.0) Red Blood Count 2.76 x10^6/uL (4.30-5.70) Hemoglobin 7.9 g/dL (13.0-17.5) Hematocrit 24.0 % (39.0-53.0) Mean Corpuscular Volume 87 fL (79-100) Mean Corpuscular Hemoglobin 29 pg (25-35) Mean Corpuscular Hemoglobin Concent 33 g/dL (31-37) Red Cell Distribution Width 15.0 % (11.5-14.5) Platelet Count 326 x10^3/uL (140-400) Neutrophils (%) (Auto) 85 % (31-73) Lymphocytes (%) (Auto) 7 % (24-48) Monocytes (%) (Auto) 5 % (0-9) Eosinophils (%) (Auto) 2 % (0-3) Basophils (%) (Auto) 1 % (0-3) Neutrophils # (Auto) 14.2 x10^3uL (1.8-7.7) Lymphocytes # (Auto) 1.1 x10^3/uL (1.0-4.8) Monocytes # (Auto) 0.9 x10^3/uL (0.0-1.1) Eosinophils # (Auto) 0.3 x10^3/uL (0.0-0.7) Basophils # (Auto) 0.1 x10^3/uL (0.0-0.2) Erythrocyte Sedimentation Rate 103 (0-15) Test 05/19/18 07:39 05/19/18 08:53 Glucose (Fingerstick) 57 mg/dL (70-99) 142 mg/dL (70-99) Problem List s/p colectomy gradual improvement cont supportive care LUIZA JOHNSON MD May 19, 2018 10:20
--- NOTE | 2018-05-19 10:54 | PDOC ---
PROGRESS NOTES Chief Complaint Chief Complaint Abdominal abscess, perf status post surgery to 05/15/17-now with indwelling colostomy s/p off tPN Postop abdominal pain s/p UNIT AIDE TECH Leukocytosis/sepsis-with ID on board - PO cefdinir now Anemia of chronic disease- hemoglobin 10 DM 2 adeq control MIld encephalopathy post op-day #3 NEw indwelling colostomy History of Present Illness History of Present Illness Off UNIT AIDE TECH 2 days Unfortunately had a mechanical fall yesterday but no injuries- happened in house Upgraded to a regular diet yesterday and tolerating that fine But wound care is telling me he needs colostomy/ostomy education and there is a spacer that technically needs to be in 5 or 6 days he's on day 2, - some person needs to be involved hence SNU discharge today might not be feasible Otherwise patient has no complaints Plan Okay medically to DC once wound/ostomy education done Rx on chart Cefdinir by mouth has been written /shifted by ID Off TPN Getachew craft on discharge, either today or tmr Vitals Vitals Vital Signs Date Time Temp Pulse Resp B/P (MAP) Pulse Ox O2 Delivery O2 Flow Rate FiO2 05/19/18 10:04 89 112/61 05/19/18 08:03 97 Room Air 05/19/18 07:00 97.9 18 97.9 Physical Exam Physical Exam GENERAL: Propped up in bed, alert, NAD HEENT: Pupils equal and reactive. Oral cavity, pharynx clear, dentures NECK: Supple, no JVD. LUNGS: Clear to auscultation, HEART: S1, S2. ABDOMEN: Mildly distended, soft, tender to light palpation, hypoactive BS, dressing dry. ostomy bag sealed. JEREMY LLQ out : Ornelas in place EXTREMITIES: No clubbing, cyanosis or gross edema. SKIN: Warm to touch without signs of rash. NEUROLOGIC: Alert, nonfocal and appropriate. RUE-PICC (05/13) wo signs of complications General: Alert, Oriented X3, Cooperative, No acute distress Lungs: Clear, Wheezing Abdomen: Other (mild TTP) Extremities: No clubbing, No cyanosis, Normal pulses Skin: No rashes, No breakdown, No significant lesion Labs LABS Laboratory Tests Test 05/18/18 11:17 05/18/18 16:44 05/18/18 20:42 05/19/18 05:00 Glucose (Fingerstick) 233 mg/dL (70-99) 114 mg/dL (70-99) 178 mg/dL (70-99) White Blood Count 16.7 x10^3/uL (4.0-11.0) Red Blood Count 2.76 x10^6/uL (4.30-5.70) Hemoglobin 7.9 g/dL (13.0-17.5) Hematocrit 24.0 % (39.0-53.0) Mean Corpuscular Volume 87 fL (79-100) Mean Corpuscular Hemoglobin 29 pg (25-35) Mean Corpuscular Hemoglobin Concent 33 g/dL (31-37) Red Cell Distribution Width 15.0 % (11.5-14.5) Platelet Count 326 x10^3/uL (140-400) Neutrophils (%) (Auto) 85 % (31-73) Lymphocytes (%) (Auto) 7 % (24-48) Monocytes (%) (Auto) 5 % (0-9) Eosinophils (%) (Auto) 2 % (0-3) Basophils (%) (Auto) 1 % (0-3) Neutrophils # (Auto) 14.2 x10^3uL (1.8-7.7) Lymphocytes # (Auto) 1.1 x10^3/uL (1.0-4.8) Monocytes # (Auto) 0.9 x10^3/uL (0.0-1.1) Eosinophils # (Auto) 0.3 x10^3/uL (0.0-0.7) Basophils # (Auto) 0.1 x10^3/uL (0.0-0.2) Erythrocyte Sedimentation Rate 103 (0-15) Test 05/19/18 07:39 05/19/18 08:53 Glucose (Fingerstick) 57 mg/dL (70-99) 142 mg/dL (70-99) Review of Systems Review of Systems A 14 point ROS was completed with the following noted as positive: Other systems reviewed and negative. \CONSTITUTIONAL: No fever or chills EYES: No recent changes SKIN: No rash or itching CARDIOVASCULAR: No chest pain, syncope, palpitations, or edema RESPIRATORY: No SOB or cough GASTROINTESTINAL: No nausea, vomiting or abdominal pain NEUROLOGICAL: No headaches or weakness ENDOCRINE: No cold or heat intolerance GENITOURINARY: No urgency or frequency of urination MUSCULOSKELETAL: No back pain or joint pain LYMPHATICS: No enlarged lymph nodes PSYCHIATRIC: No anxiety or depression Comment Review of Relevant I have reviewed the following items mukesh (where applicable) has been applied. Labs Laboratory Tests Test 05/17/18 11:21 05/17/18 15:00 05/17/18 16:23 05/17/18 20:33 Glucose (Fingerstick) 214 mg/dL (70-99) 195 mg/dL (70-99) 135 mg/dL (70-99) Urine Collection Type Void Urine Color Brown Urine Clarity Cloudy Urine pH 5.5 Urine Specific [place] >=1.030 Urine Protein 100 mg/dL (NEG-TRACE) Urine Glucose (UA) >=1000 mg/dL (NEG) Urine Ketones (Stick) Trace mg/dL (NEG) Urine Blood Large (NEG) Urine Nitrite Negative (NEG) Urine Bilirubin Negative (NEG) Urine Urobilinogen Dipstick 0.2 mg/dL (0.2 mg/dL) Urine Leukocyte Esterase Small (NEG) Urine RBC Tntc /HPF (0-2) Urine WBC 11-20 /HPF (0-4) Urine Bacteria 0 /HPF (0-FEW) Urine Mucus Mod /LPF Test 05/18/18 05:00 05/18/18 07:43 05/18/18 11:17 05/18/18 16:44 White Blood Count 17.3 x10^3/uL (4.0-11.0) Red Blood Count 2.92 x10^6/uL (4.30-5.70) Hemoglobin 8.2 g/dL (13.0-17.5) Hematocrit 25.6 % (39.0-53.0) Mean Corpuscular Volume 88 fL (79-100) Mean Corpuscular Hemoglobin 28 pg (25-35) Mean Corpuscular Hemoglobin Concent 32 g/dL (31-37) Red Cell Distribution Width 14.9 % (11.5-14.5) Platelet Count 306 x10^3/uL (140-400) Neutrophils (%) (Auto) 85 % (31-73) Lymphocytes (%) (Auto) 8 % (24-48) Monocytes (%) (Auto) 5 % (0-9) Eosinophils (%) (Auto) 2 % (0-3) Basophils (%) (Auto) 0 % (0-3) Neutrophils # (Auto) 14.6 x10^3uL (1.8-7.7) Lymphocytes # (Auto) 1.3 x10^3/uL (1.0-4.8) Monocytes # (Auto) 0.9 x10^3/uL (0.0-1.1) Eosinophils # (Auto) 0.4 x10^3/uL (0.0-0.7) Basophils # (Auto) 0.1 x10^3/uL (0.0-0.2) Glucose (Fingerstick) 272 mg/dL (70-99) 233 mg/dL (70-99) 114 mg/dL (70-99) Test 05/18/18 20:42 05/19/18 05:00 05/19/18 07:39 05/19/18 08:53 Glucose (Fingerstick) 178 mg/dL (70-99) 57 mg/dL (70-99) 142 mg/dL (70-99) White Blood Count 16.7 x10^3/uL (4.0-11.0) Red Blood Count 2.76 x10^6/uL (4.30-5.70) Hemoglobin 7.9 g/dL (13.0-17.5) Hematocrit 24.0 % (39.0-53.0) Mean Corpuscular Volume 87 fL (79-100) Mean Corpuscular Hemoglobin 29 pg (25-35) Mean Corpuscular Hemoglobin Concent 33 g/dL (31-37) Red Cell Distribution Width 15.0 % (11.5-14.5) Platelet Count 326 x10^3/uL (140-400) Neutrophils (%) (Auto) 85 % (31-73) Lymphocytes (%) (Auto) 7 % (24-48) Monocytes (%) (Auto) 5 % (0-9) Eosinophils (%) (Auto) 2 % (0-3) Basophils (%) (Auto) 1 % (0-3) Neutrophils # (Auto) 14.2 x10^3uL (1.8-7.7) Lymphocytes # (Auto) 1.1 x10^3/uL (1.0-4.8) Monocytes # (Auto) 0.9 x10^3/uL (0.0-1.1) Eosinophils # (Auto) 0.3 x10^3/uL (0.0-0.7) Basophils # (Auto) 0.1 x10^3/uL (0.0-0.2) Erythrocyte Sedimentation Rate 103 (0-15) Laboratory Tests Test 05/18/18 11:17 05/18/18 16:44 05/18/18 20:42 05/19/18 05:00 Glucose (Fingerstick) 233 mg/dL (70-99) 114 mg/dL (70-99) 178 mg/dL (70-99) White Blood Count 16.7 x10^3/uL (4.0-11.0) Red Blood Count 2.76 x10^6/uL (4.30-5.70) Hemoglobin 7.9 g/dL (13.0-17.5) Hematocrit 24.0 % (39.0-53.0) Mean Corpuscular Volume 87 fL (79-100) Mean Corpuscular Hemoglobin 29 pg (25-35) Mean Corpuscular Hemoglobin Concent 33 g/dL (31-37) Red Cell Distribution Width 15.0 % (11.5-14.5) Platelet Count 326 x10^3/uL (140-400) Neutrophils (%) (Auto) 85 % (31-73) Lymphocytes (%) (Auto) 7 % (24-48) Monocytes (%) (Auto) 5 % (0-9) Eosinophils (%) (Auto) 2 % (0-3) Basophils (%) (Auto) 1 % (0-3) Neutrophils # (Auto) 14.2 x10^3uL (1.8-7.7) Lymphocytes # (Auto) 1.1 x10^3/uL (1.0-4.8) Monocytes # (Auto) 0.9 x10^3/uL (0.0-1.1) Eosinophils # (Auto) 0.3 x10^3/uL (0.0-0.7) Basophils # (Auto) 0.1 x10^3/uL (0.0-0.2) Erythrocyte Sedimentation Rate 103 (0-15) Test 05/19/18 07:39 05/19/18 08:53 Glucose (Fingerstick) 57 mg/dL (70-99) 142 mg/dL (70-99) Microbiology 05/10/18 Blood Culture - Final, Complete NO GROWTH AFTER 5 DAYS 05/11/18 Anaerobic/Aerobic Culture - Final, Complete 05/11/18 Anaerobic Culture Result 1 (AMBROCIO) - Final, Complete 05/11/18 Aerobic Culture - Final, Complete 05/11/18 Aerobic Culture Result 1 (AMBROCIO) - Final, Complete 05/11/18 Aerobic Culture Result 2 (AMBROCIO) - Final, Complete 05/11/18 Aerobic Culture Result 3 (AMBROCIO) - Final, Complete 05/11/18 Antimicrobic Susceptibility - Final, Complete 05/11/18 Gram Stain - Final, Complete 05/11/18 Gram Stain Result 1 (AMBROCIO) - Final, Complete 05/11/18 Gram Stain Result 2 (AMBROCIO) - Final, Complete 05/11/18 Gram Stain Result 3 (AMBROCIO) - Final, Complete 05/11/18 Gram Stain Result 4 (AMBROCIO) - Final, Complete Medications Current Medications Hyoscyamine (Anaspaz) 0.125 mg ONCE ONCE PO Last administered on 05/10/18 12: 07; Start 05/10/18 at 11:30; Stop 05/10/18 at 11:32; Status DC Ondansetron HCl (Zofran) 4 mg 1X ONCE IV Last administered on 05/10/18 12:09 ; Start 05/10/18 at 11:30; Stop 05/10/18 at 11:32; Status DC Sodium Chloride 500 ml @ 500 mls/hr 1X ONCE IV Last administered on 12:04; Start 05/10/18 at 11:30; Stop 05/10/18 at 12:29; Status DC Iohexol (Omnipaque 240 Mg/ml) 30 ml 1X ONCE PO Last administered on 05/10/18 12:00; Start 05/10/18 at 12:00; Stop 05/10/18 at 12:01; Status DC Iohexol (Omnipaque 300 Mg/ml) 75 ml 1X ONCE IV Last administered on 05/10/18at 13:08; Start 05/10/18 at 12:00; Stop 05/10/18 at 12:01; Status DC Info (CONTRAST GIVEN -- Rx MONITORING) 1 each PRN DAILY PRN MC SEE COMMENTS; Start 05/10/18 at 12:00; Stop 05/12/18 at 11:59; Status DC Ciprofloxacin/ Dextrose 200 ml @ 200 mls/hr 1X ONCE IV Last administered on at 15:58; Start 05/10/18 at 14:30; Stop 05/10/18 at 15:29; Status DC Metronidazole 100 ml @ 100 mls/hr 1X ONCE IV Last administered on 05/10/18at 15:57; Start 05/10/18 at 14:30; Stop 05/10/18 at 15:29; Status DC Ondansetron HCl (Zofran) 4 mg PRN Q8HRS PRN IV NAUSEA/VOMITING; Start 05/10/18 at 14:45; Stop 05/11/18 at 14:44; Status DC Morphine Sulfate (Morphine Sulfate) 2 mg PRN Q2HR PRN IV PAIN Last administered on 05/10/18at 16:29; Start 05/10/18 at 14:45; Stop 05/10/18 at 17:27 ; Status DC Sodium Chloride 1,000 ml @ 125 mls/hr Q8H IV Last administered on 05/11/18at 08 :26; Start 05/10/18 at 15:00; Stop 05/11/18 at 14:59; Status DC Acetaminophen (Tylenol) 650 mg PRN Q4HRS PRN PO FEVER; Start 05/10/18 at 14:45 ; Stop 05/11/18 at 14:44; Status DC Ciprofloxacin/ Dextrose 200 ml @ 200 mls/hr Q12HR IV ; Start 05/11/18 at 09:00 ; Stop 05/11/18 at 09:00; Status DC Metronidazole 100 ml @ 100 mls/hr Q12HR IV ; Start 05/10/18 at 21:00; Stop at 21:00; Status DC Morphine Sulfate (Morphine Sulfate) 4 mg PRN Q2HR PRN IV PAIN Last administered on 05/14/18at 22:04; Start 05/10/18 at 17:30; Stop 05/15/18 at 12:07 ; Status DC Fentanyl Citrate (Fentanyl 2ml Vial) 50 mcg 1X ONCE IV Last administered on at 17:32; Start 05/10/18 at 17:30; Stop 05/10/18 at 17:31; Status DC Ketorolac Tromethamine (Toradol 15mg Vial) 15 mg 1X ONCE IV Last administered on 05/10/18at 17:36; Start 05/10/18 at 17:30; Stop 05/10/18 at 17:31; Status DC Enoxaparin Sodium (Lovenox Per Pharmacy Prophylaxis Dosing) 1 each PRN DAILY PRN MC SEE COMMENTS; Start 05/10/18 at 17:45; Status Cancel Metronidazole 100 ml @ 100 mls/hr Q12HR IV ; Start 05/11/18 at 09:00; Stop at 09:00; Status DC Enoxaparin Sodium (Lovenox 40mg Syringe) 40 mg QHS SQ Last administered on 05/10at 21:33; Start 05/10/18 at 21:00; Stop 05/10/18 at 21:37; Status DC Zolpidem Tartrate (Ambien) 5 mg PRN QHS PRN PO INSOMNIA Last administered on at 23:32; Start 05/10/18 at 23:15 Meropenem 500 mg/ Sodium Chloride 50 ml @ 100 mls/hr Q6HRS IV Last administered on 05/19/18at 05:49; Start 05/11/18 at 06:30; Stop 05/19/18 at 09:15 ; Status DC Linezolid/Dextrose 300 ml @ 300 mls/hr Q12HR IV Last administered on at 20:58; Start 05/11/18 at 09:00; Stop 05/19/18 at 09:15; Status DC Micafungin Sodium 100 mg/Dextrose 100 ml @ 100 mls/hr Q24H IV Last administered on 05/19/18at 08:10; Start 05/11/18 at 08:00; Stop 05/19/18 at 09:15 ; Status DC Clotrimazole (Mycelex) 10 mg 5XDAY MM Last administered on 05/19/18at 10:03; Start 05/11/18 at 08:00 Lidocaine/Sodium Bicarbonate (Buffered Lidocaine 1%) 3 ml STK-MED ONCE .ROUTE ; Start 05/11/18 at 13:28; Stop 05/11/18 at 13:29; Status DC Insulin Human Lispro (HumaLOG) 0-5 UNITS TIDWMEALS SQ Last administered on 05/11 17:00; Start 05/11/18 at 17:00; Stop 05/11/18 at 21:35; Status DC Dextrose (Dextrose 50%-Water Syringe) 12.5 gm PRN Q15MIN PRN IV SEE COMMENTS Last administered on 05/19/18 08:00; Start 05/11/18 at 14:15 Midazolam HCl (Versed) 2 mg STK-MED ONCE .ROUTE ; Start 05/11/18 at 14:19; Stop 05/11/18 at 14:20; Status DC Fentanyl Citrate (Fentanyl 2ml Vial) 100 mcg STK-MED ONCE .ROUTE ; Start at 14:19; Stop 05/11/18 at 14:20; Status DC Lidocaine/Sodium Bicarbonate (Buffered Lidocaine 1%) 6 ml 1X ONCE IJ Last administered on 05/11/18at 14:36; Start 05/11/18 at 14:45; Stop 05/11/18 at 14:46 ; Status DC Midazolam HCl (Versed) 1 mg 1X ONCE IV Last administered on 05/11/18at 14:37; Start 05/11/18 at 14:45; Stop 05/11/18 at 14:46; Status DC Fentanyl Citrate (Fentanyl 2ml Vial) 50 mcg 1X ONCE IV Last administered on at 14:37; Start 05/11/18 at 14:45; Stop 05/11/18 at 14:46; Status DC Enoxaparin Sodium (Lovenox Per Pharmacy Prophylaxis Dosing) 1 each PRN DAILY PRN MC SEE COMMENTS; Start 05/12/18 at 09:00; Stop 05/15/18 at 12:07; Status DC Enoxaparin Sodium (Lovenox 40mg Syringe) 40 mg Q24H SQ Last administered on at 21:19; Start 05/11/18 at 21:00; Stop 05/13/18 at 22:00; Status DC Oxycodone/ Acetaminophen (Percocet 5/325) 1 tab PRN Q4HRS PRN PO PAIN Last administered on 05/19/18 08:03; Start 05/11/18 at 16:30 Insulin Human Lispro (HumaLOG) 0-5 UNITS QIDACHS SQ Last administered on at 22:01; Start 05/11/18 at 21:40; Stop 05/12/18 at 07:35; Status DC Ondansetron HCl (Zofran) 4 mg PRN Q6HRS PRN IV NAUSEA/VOMITING 1ST CHOICE Last administered on 05/13/18 06:34; Start 05/12/18 at 06:15; Stop 05/15/18 at 12:07 ; Status DC Insulin Human Lispro (HumaLOG) 0-7 UNITS QIDACHS SQ Last administered on 08:45; Start 05/12/18 at 08:00; Stop 05/17/18 at 08:23; Status DC Lactobacillus Rhamnosus (Culturelle) 1 cap BID PO Last administered on 08:01; Start 05/12/18 at 21:00 Info (Tpn Per Pharmacy) 1 each PRN DAILY PRN MC SEE COMMENTS Last administered on 05/17/18at 11:32; Start 05/12/18 at 15:30; Stop 05/18/18 at 15:03; Status DC Pantoprazole Sodium (PROTONIX VIAL for IV PUSH) 40 mg DAILYAC IVP Last administered on 05/19/18 05:49; Start 05/13/18 at 07:30 Amlodipine Besylate (Norvasc) 5 mg DAILY PO Last administered on 05/19/18at 10: 04; Start 05/13/18 at 09:00 Carvedilol (Coreg) 12.5 mg BIDWMEALS PO Last administered on 05/13/18 08:19; Start 05/13/18 at 08:15; Stop 05/13/18 at 16:24; Status DC Aspirin (Ecotrin) 81 mg DAILYWBKFT PO ; Start 05/14/18 at 08:00; Status UNV Atorvastatin Calcium (Lipitor) 40 mg QHS PO ; Start 05/13/18 at 21:00; Stop at 21:00; Status DC Vitamin D (Vitamin D3) 2,000 unit DAILY PO Last administered on 05/19/18 08:01 ; Start 05/13/18 at 10:00 Insulin Glargine (Lantus) 12 units DAILY10 SQ Last administered on 05/13/18at 12 :09; Start 05/13/18 at 10:00; Stop 05/13/18 at 21:39; Status DC Lactobacillus Rhamnosus (Culturelle) 1 cap BID PO ; Start 05/13/18 at 10:00; Status Cancel Saliva Substitute (Biotene Moisturizing Mouth) 2 spray PRN Q15MIN PRN PO DRY MOUTH; Start 05/13/18 at 09:15 Ticagrelor (Brilinta) 90 mg BID PO ; Start 05/13/18 at 21:00; Status UNV Non-Formulary Medication (Budesonide/ Formoterol Fumarate (Symbicort 80-4.5 Mcg Inhaler)) 1 puff BID IH ; Start 05/13/18 at 21:00; Status UNV Non-Formulary Medication (Carisoprodol (Soma)) 1 tab BID PO ; Start 05/13/18 at 21:00; Stop 05/17/18 at 17:42; Status DC Glimepiride (Amaryl) 4 mg DAILY PO Last administered on 05/18/18at 08:31; Start 05/13/18 at 10:00; Stop 05/19/18 at 09:26; Status DC Magnesium Oxide (Magnesium Oxide) 200 mg DAILY PO Last administered on at 08:01; Start 05/13/18 at 10:00 Metformin HCl (Glucophage) 500 mg BIDWMEALS PO ; Start 05/13/18 at 10:00; Stop 05/13/18 at 11:49; Status DC Non-Formulary Medication (Omeprazole ) 1 cap DAILY PO ; Start 05/14/18 at 09:00 ; Status UNV Insulin Human Lispro (HumaLOG) 8 units 1X ONCE SQ Last administered on at 12:08; Start 05/13/18 at 10:00; Stop 05/13/18 at 10:02; Status DC Info (Tpn Per Pharmacy) 1 each PRN DAILY PRN MC SEE COMMENTS; Start 05/13/18 at 09:30; Status Cancel Albuterol Sulfate (Ventolin Neb Soln) 2.5 mg Q6HRS NEB Last administered on at 13:02; Start 05/13/18 at 12:00; Stop 05/13/18 at 13:49; Status DC Budesonide (Pulmicort) 0.5 mg RTBID NEB ; Start 05/13/18 at 10:00; Stop at 17:25; Status DC Lidocaine/Sodium Bicarbonate (Buffered Lidocaine 1%) 3 ml STK-MED ONCE .ROUTE ; Start 05/13/18 at 10:56; Stop 05/13/18 at 10:57; Status DC Lidocaine/Sodium Bicarbonate (Buffered Lidocaine 1%) 3 ml 1X ONCE INJ Last administered on 05/13/18at 11:18; Start 05/13/18 at 11:15; Stop 05/13/18 at 11:31 ; Status DC Iodixanol (Visipaque 320) 50 ml STK-MED ONCE .ROUTE ; Start 05/13/18 at 11:20; Stop 05/13/18 at 11:21; Status DC Iodixanol (Visipaque 320) 50 ml STK-MED ONCE .ROUTE ; Start 05/13/18 at 11:21; Stop 05/13/18 at 11:22; Status DC Iodixanol (Visipaque 320) 50 ml 1X ONCE IV Last administered on 05/13/18at 11: 40; Start 05/13/18 at 11:45; Stop 05/13/18 at 11:48; Status DC Info (CONTRAST GIVEN -- Rx MONITORING) 1 each PRN DAILY PRN MC SEE COMMENTS; Start 05/13/18 at 12:00; Stop 05/15/18 at 11:59; Status DC Metformin HCl (Glucophage) 500 mg BIDWMEALS PO Last administered on 05/19/18at 10:03; Start 05/15/18 at 17:00 Magnesium Sulfate 50 ml @ 25 mls/hr 1X ONCE IV Last administered on 05/13/18at 13:22; Start 05/13/18 at 13:00; Stop 05/13/18 at 14:59; Status DC Sodium Phosphate 20 mmol/Dextrose 256.6667 ml @ 64.167 m... 1X ONCE IV Last administered on 05/13/18at 13:23; Start 05/13/18 at 13:00; Stop 05/13/18 at 16:59 ; Status DC Sodium Chloride 90 meq/Potassium Chloride 50 meq/ Potassium Phosphate 25 mmol/ Magnesium Sulfate 20 meq/Calcium Gluconate 10 meq/ Multivitamins 10 ml/Chromium / Copper/Manganese/ Seleni/Zn 1 ml/ Total Parenteral Nutrition/Amino Acids/ Dextrose/ Fat Emulsion Intravenous 1,512 ml @ 63 mls/hr TPN CONT IV Last administered on 05/13/18at 21:18; Start 05/13/18 at 22:00; Stop 05/14/18 at 21:59 ; Status DC Enoxaparin Sodium (Lovenox 40mg Syringe) 40 mg Q24H SQ ; Start 05/15/18 at 09:00 ; Stop 05/15/18 at 12:06; Status DC Albuterol Sulfate (Ventolin Neb Soln) 2.5 mg PRN Q6HRS PRN NEB SHORTNESS OF BREATH; Start 05/13/18 at 14:00 Aspirin (Ecotrin) 81 mg DAILYWBKFT PO Last administered on 05/19/18at 08:01; Start 05/13/18 at 17:30 Metoprolol Tartrate (Lopressor) 50 mg BID PO Last administered on 05/19/18at 10: 04; Start 05/13/18 at 21:00 Magnesium Sulfate/ Dextrose 100 ml @ 25 mls/hr 1X ONCE IV ; Start 05/13/18 at 18:00; Stop 05/13/18 at 21:59; Status UNV Insulin Glargine (Lantus) 14 units DAILY10 SQ Last administered on 05/14/18at 10 :26; Start 05/14/18 at 10:00; Stop 05/14/18 at 10:56; Status DC Insulin Human Lispro (HumaLOG) 5 units TIDWMEALS SQ Last administered on at 17:39; Start 05/14/18 at 08:00; Stop 05/18/18 at 08:43; Status DC Insulin Human Lispro (HumaLOG) 17 units 1X ONCE SQ Last administered on at 08:28; Start 05/14/18 at 08:30; Stop 05/14/18 at 08:31; Status DC Insulin Human Lispro (HumaLOG) 26 units 1X ONCE SQ Last administered on at 11:09; Start 05/14/18 at 11:00; Stop 05/14/18 at 11:01; Status DC Insulin Glargine (Lantus) 20 units DAILY10 SQ Last administered on 05/15/18at 13 :06; Start 05/15/18 at 10:00; Stop 05/15/18 at 15:08; Status DC Insulin Human Lispro (HumaLOG) 9 units 1X ONCE SQ Last administered on at 12:29; Start 05/14/18 at 12:15; Stop 05/14/18 at 12:16; Status DC Sodium Chloride 120 meq/Potassium Chloride 20 meq/ Potassium Phosphate 30 mmol/ Magnesium Sulfate 20 meq/Calcium Gluconate 5 meq/ Multivitamins 10 ml/Chromium/ Copper/Manganese/ Seleni/Zn 1 ml/ Total Parenteral Nutrition/Amino Acids/ Dextrose/ Fat Emulsion Intravenous 1,512 ml @ 63 mls/hr TPN CONT IV Last administered on 05/14/18at 21:39; Start 05/14/18 at 22:00; Stop 05/15/18 at 21:59 ; Status DC Morphine Sulfate (Morphine Sulfate) 1 mg PRN Q10MIN PRN IV SEVERE PAIN Last administered on 05/12/18at 12:35; Start 05/15/18 at 07:00; Stop 05/16/18 at 06:59 ; Status DC Ringer's Solution 1,000 ml @ 30 mls/hr Q24H IV ; Start 05/15/18 at 07:00; Stop 05/15/18 at 18:59; Status DC Lidocaine HCl (Xylocaine-Mpf 1% 2ml Vial) 2 ml PRN 1X PRN ID IV START; Start at 07:00; Stop 05/16/18 at 06:59; Status DC Hydromorphone HCl (Dilaudid) 0.5 mg PRN Q10MIN PRN IV SEV PAIN, Second choice; Start 05/15/18 at 07:00; Stop 05/16/18 at 06:59; Status DC Prochlorperazine Edisylate (Compazine) 5 mg PACU PRN PRN IV NAUSEA, MRX1 Last administered on 05/15/18at 12:35; Start 05/15/18 at 07:00; Stop 05/16/18 at 06:59 ; Status DC Insulin Human Lispro (HumaLOG) 2 units 1X ONCE SQ ; Start 05/14/18 at 21:45; Stop 05/14/18 at 21:50; Status DC Bupivacaine HCl/ Epinephrine Bitart (Sensorcain-Mpf Epi 0.5%-1:[id number]) 30 ml STK -MED ONCE .ROUTE Last administered on 05/15/18at 09:19; Start 05/15/18 at 07:04 ; Stop 05/15/18 at 07:05; Status DC Fentanyl Citrate (Fentanyl 5ml Vial) 250 mcg STK-MED ONCE .ROUTE ; Start at 07:21; Stop 05/15/18 at 07:22; Status DC Rocuronium Peetz (Zemuron) 50 mg STK-MED ONCE .ROUTE ; Start 05/15/18 at 07:21 ; Stop 05/15/18 at 07:22; Status DC Dexamethasone Sodium Phosphate (Decadron) 20 mg STK-MED ONCE .ROUTE ; Start at 07:26; Stop 05/15/18 at 07:27; Status DC Ondansetron HCl (Zofran) 4 mg STK-MED ONCE .ROUTE ; Start 05/15/18 at 07:26; Stop 05/15/18 at 07:27; Status DC Propofol 20 ml @ As Directed STK-MED ONCE IV ; Start 05/15/18 at 07:26; Stop at 07:27; Status DC Lidocaine HCl (Lidocaine Pf 2% Vial) 5 ml STK-MED ONCE .ROUTE ; Start 05/15/18 at 07:26; Stop 05/15/18 at 07:27; Status DC Ephedrine Sulfate (Akovaz) 50 mg STK-MED ONCE .ROUTE ; Start 05/15/18 at 07:57; Stop 05/15/18 at 07:58; Status DC Rocuronium Peetz (Zemuron) 50 mg STK-MED ONCE .ROUTE ; Start 05/15/18 at 09:13 ; Stop 05/15/18 at 09:14; Status DC Glycopyrrolate (Robinul) 1 mg STK-MED ONCE .ROUTE ; Start 05/15/18 at 09:41; Stop 05/15/18 at 09:42; Status DC Neostigmine Methylsulfate (Bloxiverz) 10 mg STK-MED ONCE .ROUTE ; Start at 09:41; Stop 05/15/18 at 09:42; Status DC Sevoflurane (Ultane) 90 ml STK-MED ONCE IH ; Start 05/15/18 at 09:42; Stop 05/15 at 09:43; Status DC Labetalol HCl (Normodyne Iv Push) 20 mg 1X ONCE IVP ; Start 05/15/18 at 10:30; Stop 05/15/18 at 10:31; Status DC Ketorolac Tromethamine (Toradol For Or Only) 30 mg STK-MED ONCE INJ ; Start at 12:02; Stop 05/15/18 at 12:03; Status DC Enoxaparin Sodium (Lovenox 40mg Syringe) 40 mg Q24H SQ Last administered on at 08:00; Start 05/16/18 at 08:00 Sodium Chloride (Normal Saline Flush) 3 ml QSHIFT PRN IV AFTER MEDS AND BLOOD DRAWS; Start 05/15/18 at 12:15 Naloxone HCl (Narcan) 0.4 mg PRN Q2MIN PRN IV SEE INSTRUCTIONS; Start 05/15/18 at 12:15 Sodium Chloride 1,000 ml @ 25 mls/hr Q24H IV Last administered on 05/15/18at 15 :34; Start 05/15/18 at 12:01 Morphine Sulfate 30 ml @ 0 mls/hr CONT PRN PRN IV PER PROTOCOL Last administered on 05/17/18at 23:59; Start 05/15/18 at 12:15; Stop 05/18/18 at 15:03 ; Status DC Ondansetron HCl (Zofran) 4 mg PRN Q6HRS PRN IV NAUESA, 1ST CHOICE; Start at 12:15 Fentanyl Citrate (Fentanyl 2ml Vial) 100 mcg STK-MED ONCE .ROUTE ; Start at 12:39; Stop 05/15/18 at 12:40; Status DC Insulin Glargine (Lantus) 10 units 1X STAT SQ ; Start 05/15/18 at 13:01; Stop 05/15/18 at 13:05; Status DC Insulin Human Lispro (HumaLOG) 4 units ONCE STAT SQ Last administered on at 13:07; Start 05/15/18 at 13:01; Stop 05/15/18 at 13:05; Status DC Sodium Chloride 120 meq/Potassium Chloride 20 meq/ Potassium Phosphate 30 mmol/ Magnesium Sulfate 20 meq/Calcium Gluconate 5 meq/ Multivitamins 10 ml/Chromium/ Copper/Manganese/ Seleni/Zn 1 ml/ Total Parenteral Nutrition/Amino Acids/ Dextrose/ Fat Emulsion Intravenous 1,512 ml @ 63 mls/hr TPN CONT IV Last administered on 05/15/18at 21:52; Start 05/15/18 at 22:00; Stop 05/16/18 at 21:59 ; Status DC Insulin Human Lispro (HumaLOG) 17 units 1X ONCE SQ Last administered on at 15:48; Start 05/15/18 at 15:15; Stop 05/15/18 at 15:16; Status DC Insulin Glargine (Lantus) 25 units DAILY10 SQ Last administered on 05/16/18at 08 :42; Start 05/16/18 at 10:00; Stop 05/16/18 at 10:04; Status DC Magnesium Sulfate/ Dextrose 100 ml @ 100 mls/hr 1X ONCE IV Last administered on 05/15/18at 18:08; Start 05/15/18 at 16:30; Stop 05/15/18 at 17:29; Status DC Insulin Glargine (Lantus) 15 units 1X ONCE SQ Last administered on 05/15/18at 21:34; Start 05/15/18 at 21:15; Stop 05/15/18 at 21:50; Status DC Insulin Human Lispro (HumaLOG) 17 units 1X ONCE SQ Last administered on at 21:33; Start 05/15/18 at 21:15; Stop 05/15/18 at 21:50; Status DC Insulin Human Lispro (HumaLOG) 5 units TIDWMEALS SQ ; Start 05/16/18 at 08:00; Status UNV Insulin Glargine (Lantus) 25 units BID SQ ; Start 05/16/18 at 21:00; Stop at 21:00; Status DC Insulin Human Lispro (HumaLOG) 20 units 1X ONCE SQ Last administered on at 10:30; Start 05/16/18 at 10:30; Stop 05/16/18 at 10:31; Status DC Insulin Glargine (Lantus) 35 units BID SQ Last administered on 05/18/18at 21:05 ; Start 05/16/18 at 21:00; Stop 05/19/18 at 09:26; Status DC Enoxaparin Sodium (Lovenox 40mg Syringe) 40 mg Q24H SQ ; Start 05/16/18 at 12:00 ; Status Cancel Insulin Glargine (Lantus) 20 units 1X ONCE SQ Last administered on 05/16/18at 12:07; Start 05/16/18 at 12:00; Stop 05/16/18 at 12:01; Status DC Magnesium Sulfate 50 ml @ 25 mls/hr 1X ONCE IV Last administered on 05/16/18at 13:57; Start 05/16/18 at 12:00; Stop 05/16/18 at 13:59; Status DC Insulin Human Lispro (HumaLOG) 25 units 1X ONCE SQ ; Start 05/16/18 at 12:30; Stop 05/16/18 at 12:31; Status DC Sodium Chloride 120 meq/Potassium Chloride 20 meq/ Potassium Phosphate 30 mmol/ Magnesium Sulfate 20 meq/Calcium Gluconate 5 meq/ Multivitamins 10 ml/Chromium/ Copper/Manganese/ Seleni/Zn 1 ml/ Total Parenteral Nutrition/Amino Acids/ Dextrose/ Fat Emulsion Intravenous 1,512 ml @ 63 mls/hr TPN CONT IV Last administered on 05/16/18at 22:28; Start 05/16/18 at 22:00; Stop 05/17/18 at 21:59 ; Status DC Budesonide (Pulmicort) 0.5 mg PRN BID PRN NEB WHEEZING; Start 05/16/18 at 20:00 Insulin Human Lispro (HumaLOG) 0-9 UNITS TIDWMEALS SQ Last administered on 05/18at 12:02; Start 05/17/18 at 12:00 Dextrose (Dextrose 50%-Water Syringe) 12.5 gm PRN Q15MIN PRN IV SEE COMMENTS; Start 05/17/18 at 08:30 Sodium Chloride 140 meq/Potassium Chloride 20 meq/ Potassium Phosphate 30 mmol/ Magnesium Sulfate 20 meq/Calcium Gluconate 5 meq/ Multivitamins 10 ml/Chromium/ Copper/Manganese/ Seleni/Zn 1 ml/ Total Parenteral Nutrition/Amino Acids/ Dextrose/ Fat Emulsion Intravenous 1,512 ml @ 63 mls/hr TPN CONT IV Last administered on 05/17/18at 21:58; Start 05/17/18 at 22:00; Stop 05/18/18 at 15:03 ; Status DC Insulin Human Lispro (HumaLOG) 15 units TIDWMEALS SQ Last administered on at 12:03; Start 05/18/18 at 12:00; Stop 05/19/18 at 09:26; Status DC Sodium Chloride 140 meq/Potassium Chloride 20 meq/ Potassium Phosphate 30 mmol/ Magnesium Sulfate 20 meq/Calcium Gluconate 5 meq/ Multivitamins 10 ml/Chromium/ Copper/Manganese/ Seleni/Zn 1 ml/ Total Parenteral Nutrition/Amino Acids/ Dextrose/ Fat Emulsion Intravenous 1,512 ml @ 63 mls/hr TPN CONT IV ; Start at 22:00; Stop 05/18/18 at 22:00; Status DC Acetaminophen/ Hydrocodone Bitart (Lortab 5/325) 1 tab PRN Q4HRS PRN PO MODERATE PAIN; Start 05/18/18 at 15:15 Morphine Sulfate (Morphine Sulfate) 2 mg PRN Q2HR PRN IV PAIN; Start 05/19/18 at 09:00 Cefdinir (Omnicef) 300 mg BID PO Last administered on 05/19/18at 10:03; Start at 10:00 Insulin Glargine (Lantus) 12 units QHS SQ ; Start 05/19/18 at 21:00 Active Scripts Active Cipro (Ciprofloxacin Hcl) 500 Mg Tablet 1 Tab PO BID 14 Days Biotene Moisturizing Mouth (Saliva Stimulant Agents Comb.3) 44.3 Ml [place] 2 [place] PO PRN Q15MIN PRN 30 Days Lantus Solostar (Insulin Glargine,Hum.rec.anlog) 100 Unit/1 Ml Insuln.pen 12 Units SQ DAILY10 30 Days Culturelle (Lactobacillus Rhamnosus Gg) 1 Each Cap.sprink 1 Cap PO BID 28 Days Lipitor (Atorvastatin Calcium) 40 Mg Tablet 1 Tab PO QHS Aspirin Ec (Aspirin) 81 Mg Tablet. 81 Mg PO DAILYWBKFT Brilinta (Ticagrelor) 90 Mg Tablet 90 Mg PO BID Reported Metformin Hcl 500 Mg Tablet 500 Mg PO BIDWMEALS Soma (Carisoprodol) 350 Mg Tablet 1 Tab PO BID Omeprazole 40 Mg Capsule. 1 Cap PO DAILY Symbicort 80-4.5 Mcg Inhaler (Budesonide/Formoterol Fumarate) 10.2 Gm Hfa.aer.ad 1 Puff IH BID Amaryl (Glimepiride) 4 Mg Tablet 1 Tab PO DAILY Amlodipine Besylate 5 Mg Tablet 5 Mg PO DAILY Carvedilol (Carvedilol) 12.5 Mg Tablet 1 Tab PO BID Colestipol Hcl 1 Gm Tablet 2 Gm PO 1X Magnesium Oxide 400 Mg Tablet 250 Tab PO DAILY Vitamin D3 (Cholecalciferol (Vitamin D3)) 1,000 Unit Tablet 2,000 Tab PO DAILY Vitals/I & O Vital Sign - Last 24 Hours 05/18/18 05/18/18 05/18/18 05/18/18 11:00 15:00 19:20 20:00 Temp 97.2 98.5 98.0 97.2 98.5 98.0 Pulse 103 68 115 Resp 18 18 20 B/P (MAP) 112/54 (73) 113/51 (71) 103/64 (77) Pulse Ox 94 96 92 O2 Delivery Room Air Room Air Room Air Room Air 05/18/18 05/18/18 05/18/18 05/18/18 20:58 20:58 21:58 23:15 Temp 98.1 98.1 Pulse 115 110 Resp 20 20 18 B/P (MAP) 103/64 102/60 (74) Pulse Ox 92 98 98 O2 Delivery Room Air Room Air Room Air 05/19/18 05/19/18 05/19/18 05/19/18 03:34 07:00 08:03 10:04 Temp 98.2 97.9 98.2 97.9 Pulse 93 89 89 Resp 18 18 B/P (MAP) 106/60 (75) 112/61 (78) 112/61 Pulse Ox 97 94 97 O2 Delivery Room Air Room Air Room Air 05/19/18 10:04 Pulse 89 B/P (MAP) 112/61 Intake and Output 05/18/18 05/18/18 05/19/18 15:00 23:00 07:00 Intake Total 800 ml 2000 ml 560 ml Output Total 100 ml 1450 ml Balance 700 ml 2000 ml -890 ml Nutrition Consultation Dietary Evaluation: Recommendations by RD: PPN/TPN Comments: Recommend continue current TPN order Diet advancement per GI to regular as tollerated Expected Outcomes/Goals: Advancement to Regular diet as tollerated Meet >75% estimated needs through P.O. intake Interpretation of weight loss: >7.5% in 3 months Malnutrition Findings: Body Fat Depletion (Non Severe: Mild Depletion Weight Status: Appropriate NATHAN GUTIERREZ MD May 19, 2018 10:54
[2018-05-19] MEDS ORDERED: CEFD300C PO (10:56)
[2018-05-19] MEDS ORDERED: HYDR-2761 PO (10:56)
[2018-05-19] MEDS ORDERED: ALBU2.5V8 NEB (10:56)
--- NOTE | 2018-05-19 10:58 | DISCH ---
DISCHARGE DISCHARGE INFORMATION: DISCHARGE DATE: May 19, 2018 CONDITION ON DISCHARGE: Stable CODE STATUS: Code Status: Full ALF: SNF STAY <30 DAYS: Yes HOSPICE: HOSPICE: No HOSPICE EVAL & TREAT: No LTAC: ADMIT TO LTAC: No POST DISCHARGE ORDERS: ACTIVITY ORDERS: Activity as tolerated WEIGHT BEARING STATUS: As tolerated BATHING ORDERS: Shower-keep dressing dry, No Tub Bath until see WOUND/INCISION CARE: Do not change dressing CHECKS AFTER DISCHARGE: CHECKS AFTER DISCHARGE: Check blood press - daily FOLLOW-UP: PHYSICIAN FOLLOW-UP: 2 weeks TREATMENT/EQUIPMENT ORDERS: ADAPTIVE EQUIPMENT NEEDED: None Physical Therapy For: Evalulation/Treatment Occupational Therapy For: Evaluation/Treatment DISCHARGE MEDICATIONS: Home Meds Active Scripts Hydrocodone Bit/Acetaminophen (HYDROCODONE-APAP 5-325 ) 1 Tab Tablet, 1 TAB PO PRN Q4HRS PRN for MODERATE PAIN MDD 1, #30 TAB Prov:NATHAN GUTIERREZ MD 05/19/18 Albuterol Sulfate (Proair Hfa) 8.5 Gm Hfa.aer.ad, 2.5 MG NEB PRN Q6HRS PRN for SHORTNESS OF BREATH MDD 1, #15 INHALER Prov:NATHAN GUTIERREZ MD 05/19/18 Cefdinir (CEFDINIR) 300 Mg Capsule, 300 MG PO BID for sepsis MDD 1 for 10 Days, #20 CAP Prov:NATHAN GUTIERREZ MD 05/19/18 Ciprofloxacin Hcl (CIPRO) 500 Mg Tablet, 1 TAB PO BID for infection for 14 Days , #28 TAB Prov:ASHIA DEVRIES MD 04/26/18 Saliva Stimulant Agents Comb.3 (BIOTENE MOISTURIZING MOUTH) 44.3 Ml [place], 2 SPRAY PO PRN Q15MIN PRN for DRY MOUTH for 30 Days, #60 SPRAY Prov:ASHIA DEVRIES MD 04/26/18 Insulin Glargine,Hum.rec.anlog (LANTUS SOLOSTAR) 100 Unit/1 Ml Insuln.pen, 12 UNITS SQ DAILY10 for diabetes for 30 Days, #10 EACH Prov:ASHIA DEVRIES MD 04/26/18 Lactobacillus Rhamnosus Gg (CULTURELLE) 1 Each Cap.sprink, 1 CAP PO BID for gut health for 28 Days, #56 CAP Prov:ASHIA DEVRIES MD 04/26/18 Atorvastatin Calcium (LIPITOR) 40 Mg Tablet, 1 TAB PO QHS for CAD, #30 TAB 1 Refill Prov:BROOKE LI CHAR CONVEYOR TENDER 01/22/18 Aspirin (ASPIRIN EC) 81 Mg Tablet., 81 MG PO DAILYWBKFT for CAD, #30 TAB.SR Prov:BROOKE LI CHAR CONVEYOR TENDER 01/22/18 Ticagrelor (BRILINTA) 90 Mg Tablet, 90 MG PO BID for CAD, #60 TAB Prov:BROOKE LI CHAR CONVEYOR TENDER 01/22/18 Reported Medications Metformin Hcl (METFORMIN HCL) 500 Mg Tablet, 500 MG PO BIDWMEALS for ANTI- DIABETIC, TAB 0 Refills 04/30/18 Carisoprodol (SOMA) 350 Mg Tablet, 1 TAB PO BID for pain, #60 TAB 01/21/18 Omeprazole (OMEPRAZOLE) 40 Mg Capsule.dr, 1 CAP PO DAILY for GERD, #30 CAP 3 Refills 01/21/18 Budesonide/Formoterol Fumarate (SYMBICORT 80-4.5 MCG INHALER) 10.2 Gm Hfa.aer.ad , 1 PUFF IH BID for copd, INHALER 01/21/18 Glimepiride (AMARYL) 4 Mg Tablet, 1 TAB PO DAILY for diabetic, #30 TAB 5 Refills 01/21/18 Amlodipine Besylate (AMLODIPINE BESYLATE) 5 Mg Tablet, 5 MG PO DAILY for high blood pressure, TAB 01/21/18 Carvedilol (CARVEDILOL ) 12.5 Mg Tablet, 1 TAB PO BID for lower heartate, # 180 TAB 1 Refill 01/21/18 Colestipol Hcl (COLESTIPOL HCL) 1 Gm Tablet, 2 GM PO 1X for lowers cholesterol, TAB 01/21/18 Magnesium Oxide (MAGNESIUM OXIDE) 400 Mg Tablet, 250 TAB PO DAILY for deficiency , #30 TAB 5 Refills 01/21/18 Cholecalciferol (Vitamin D3) (VITAMIN D3) 1,000 Unit Tablet, 2000 TAB PO DAILY for deficiency, #30 TAB 5 Refills 01/21/18 NATHAN GUTIERREZ MD May 19, 2018 10:58
--- NOTE | 2018-05-19 11:04 | NUR ---
SW following, discussed with RN. Pt will be on PO abx, and TPN was stopped yesterday (04/28/18). SELENE faxed referral to [place] for SNU ph: [phone], fax: [phone]. SELENE will continue to follow.
--- NOTE | 2018-05-19 11:10 | PDOC3 ---
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 Leukocytosis/sepsis-with ID on board - cefdinir now Anemia of chronic disease- hemoglobin 10 DM 2 adeq control MIld encephalopathy post op-day #3 Brief Hospital Course Allergies Allergies Coded Allergies Type Severity Reaction Last Updated Verified latex Allergy Intermediate rash/blisters, 01/21/18 Yes Vital Signs Vital Signs Date Time Temp Pulse Resp B/P (MAP) Pulse Ox O2 Delivery O2 Flow Rate FiO2 05/19/18 10:04 89 112/61 05/19/18 09:05 97 Room Air 05/19/18 07:00 97.9 18 97.9 Lab Results Laboratory Tests Test 05/17/18 11:21 05/17/18 15:00 05/17/18 16:23 05/17/18 20:33 Glucose (Fingerstick) 214 mg/dL (70-99) 195 mg/dL (70-99) 135 mg/dL (70-99) Urine Collection Type Void Urine Color Brown Urine Clarity Cloudy Urine pH 5.5 Urine Specific [place] >=1.030 Urine Protein 100 mg/dL (NEG-TRACE) Urine Glucose (UA) >=1000 mg/dL (NEG) Urine Ketones (Stick) Trace mg/dL (NEG) Urine Blood Large (NEG) Urine Nitrite Negative (NEG) Urine Bilirubin Negative (NEG) Urine Urobilinogen Dipstick 0.2 mg/dL (0.2 mg/dL) Urine Leukocyte Esterase Small (NEG) Urine RBC Tntc /HPF (0-2) Urine WBC 11-20 /HPF (0-4) Urine Bacteria 0 /HPF (0-FEW) Urine Mucus Mod /LPF Test 05/18/18 05:00 05/18/18 07:43 05/18/18 11:17 05/18/18 16:44 White Blood Count 17.3 x10^3/uL (4.0-11.0) Red Blood Count 2.92 x10^6/uL (4.30-5.70) Hemoglobin 8.2 g/dL (13.0-17.5) Hematocrit 25.6 % (39.0-53.0) Mean Corpuscular Volume 88 fL (79-100) Mean Corpuscular Hemoglobin 28 pg (25-35) Mean Corpuscular Hemoglobin Concent 32 g/dL (31-37) Red Cell Distribution Width 14.9 % (11.5-14.5) Platelet Count 306 x10^3/uL (140-400) Neutrophils (%) (Auto) 85 % (31-73) Lymphocytes (%) (Auto) 8 % (24-48) Monocytes (%) (Auto) 5 % (0-9) Eosinophils (%) (Auto) 2 % (0-3) Basophils (%) (Auto) 0 % (0-3) Neutrophils # (Auto) 14.6 x10^3uL (1.8-7.7) Lymphocytes # (Auto) 1.3 x10^3/uL (1.0-4.8) Monocytes # (Auto) 0.9 x10^3/uL (0.0-1.1) Eosinophils # (Auto) 0.4 x10^3/uL (0.0-0.7) Basophils # (Auto) 0.1 x10^3/uL (0.0-0.2) Glucose (Fingerstick) 272 mg/dL (70-99) 233 mg/dL (70-99) 114 mg/dL (70-99) Test 05/18/18 20:42 05/19/18 05:00 05/19/18 07:39 05/19/18 08:53 Glucose (Fingerstick) 178 mg/dL (70-99) 57 mg/dL (70-99) 142 mg/dL (70-99) White Blood Count 16.7 x10^3/uL (4.0-11.0) Red Blood Count 2.76 x10^6/uL (4.30-5.70) Hemoglobin 7.9 g/dL (13.0-17.5) Hematocrit 24.0 % (39.0-53.0) Mean Corpuscular Volume 87 fL (79-100) Mean Corpuscular Hemoglobin 29 pg (25-35) Mean Corpuscular Hemoglobin Concent 33 g/dL (31-37) Red Cell Distribution Width 15.0 % (11.5-14.5) Platelet Count 326 x10^3/uL (140-400) Neutrophils (%) (Auto) 85 % (31-73) Lymphocytes (%) (Auto) 7 % (24-48) Monocytes (%) (Auto) 5 % (0-9) Eosinophils (%) (Auto) 2 % (0-3) Basophils (%) (Auto) 1 % (0-3) Neutrophils # (Auto) 14.2 x10^3uL (1.8-7.7) Lymphocytes # (Auto) 1.1 x10^3/uL (1.0-4.8) Monocytes # (Auto) 0.9 x10^3/uL (0.0-1.1) Eosinophils # (Auto) 0.3 x10^3/uL (0.0-0.7) Basophils # (Auto) 0.1 x10^3/uL (0.0-0.2) Erythrocyte Sedimentation Rate 103 (0-15) Laboratory Tests Test 05/18/18 11:17 05/18/18 16:44 05/18/18 20:42 05/19/18 05:00 Glucose (Fingerstick) 233 mg/dL (70-99) 114 mg/dL (70-99) 178 mg/dL (70-99) White Blood Count 16.7 x10^3/uL (4.0-11.0) Red Blood Count 2.76 x10^6/uL (4.30-5.70) Hemoglobin 7.9 g/dL (13.0-17.5) Hematocrit 24.0 % (39.0-53.0) Mean Corpuscular Volume 87 fL (79-100) Mean Corpuscular Hemoglobin 29 pg (25-35) Mean Corpuscular Hemoglobin Concent 33 g/dL (31-37) Red Cell Distribution Width 15.0 % (11.5-14.5) Platelet Count 326 x10^3/uL (140-400) Neutrophils (%) (Auto) 85 % (31-73) Lymphocytes (%) (Auto) 7 % (24-48) Monocytes (%) (Auto) 5 % (0-9) Eosinophils (%) (Auto) 2 % (0-3) Basophils (%) (Auto) 1 % (0-3) Neutrophils # (Auto) 14.2 x10^3uL (1.8-7.7) Lymphocytes # (Auto) 1.1 x10^3/uL (1.0-4.8) Monocytes # (Auto) 0.9 x10^3/uL (0.0-1.1) Eosinophils # (Auto) 0.3 x10^3/uL (0.0-0.7) Basophils # (Auto) 0.1 x10^3/uL (0.0-0.2) Erythrocyte Sedimentation Rate 103 (0-15) Test 05/19/18 07:39 05/19/18 08:53 Glucose (Fingerstick) 57 mg/dL (70-99) 142 mg/dL (70-99) Brief Hospital Course Mr. Queen is a 82 old pleasant male who underwent exploratory laparoscopy because he came in with a perforated abdominal abscess, and needed TPN PROPERTY ADJUSTER postop. Also needed ID on board, grew some Intra-Op cultures. Now. Able to shift to cefdinir by mouth and also tolerating regular diet. Initially we thought he needed LTAC because it took a while for us to take him off TPN but we were able to successfully shift him to by mouth diet with good by mouth intake. He otherwise needs SNU hence has been accepted to [place]. SOme non injury fall at hospital 1 day prior to dc Intra-Op, he needed a colostomy bag and needed some education now and we are waiting for wound care/education spacer etc. before we discharge to SNU All Rx on chart Discussed with multiple people including case management, social work, RN, wound care etc. Time discharging 35 minutes cumulative Discharge Information Condition at Discharge: Improved, Stable Disposition/Orders: D/C to Home, Other (snu) Scheduled Amlodipine Besylate (Amlodipine Besylate) 5 Mg Tablet, 5 MG PO DAILY for high blood pressure, (Reported) Entered as Reported by: Ailyn Regalado on 01/21/18 0938 Last Action: Continued on 05/13/18 0809 by DARRYL GUY Aspirin (Aspirin Ec) 81 Mg Tablet., 81 MG PO DAILYWBKFT for CAD, #30 Prescribed by: BROOKE LI on 01/22/18 1256 Last Action: Continued on 05/13/18 0911 by ANITA ALVARADO Atorvastatin Calcium (Lipitor) 40 Mg Tablet, 1 TAB PO QHS for CAD, #30 Ref 1 Prescribed by: BROOKE LI on 01/22/18 1256 Last Action: Continued on 05/13/18910 by ANITA ALVARADO Budesonide/Formoterol Fumarate (Symbicort 80-4.5 Mcg Inhaler) 10.2 Gm Hfa.aer.ad , 1 PUFF IH BID for copd, (Reported) Entered as Reported by: Ailyn Regaaldo on 01/21/18937 Last Action: Converted on 05/13/18910 by ANITA ALVARADO Carisoprodol (Soma) 350 Mg Tablet, 1 TAB PO BID for pain, #60 (Reported) Entered as Reported by: Ailyn Regalado on 01/21/18937 Last Action: Converted on 05/13/18910 by ANITA ALVARADO Carvedilol (Carvedilol ) 12.5 Mg Tablet, 1 TAB PO BID for lower heartate, # 180 Ref 1 (Reported) Entered as Reported by: Ailyn Regalado on 01/21/18937 Last Action: Continued on 05/13/18808 by DARRYL GUY Cefdinir (Cefdinir) 300 Mg Capsule, 300 MG PO BID for sepsis MDD 1 for 10 Days, #20 Prescribed by: NATHAN GUTIERREZ on 05/19/18 1056 Cholecalciferol (Vitamin D3) (Vitamin D3) 1,000 Unit Tablet, 2,000 TAB PO DAILY for deficiency, #30 Ref 5 (Reported) Entered as Reported by: Ailyn Regalado on 01/21/18931 Last Action: Continued on 05/13/18910 by ANITA ALVARADO Ciprofloxacin Hcl (Cipro) 500 Mg Tablet, 1 TAB PO BID for infection for 14 Days , #28 Prescribed by: ASHIA DEVRIES MD on 04/26/18 1438 Last Action: HELD on 05/13/18910 by ANITA ALVARADO Colestipol Hcl (Colestipol Hcl) 1 Gm Tablet, 2 GM PO 1X for lowers cholesterol, (Reported) Entered as Reported by: Ailyn Regalado on 01/21/18931 Last Action: HELD on 05/13/18910 by ANITA ALVARADO Glimepiride (Amaryl) 4 Mg Tablet, 1 TAB PO DAILY for diabetic, #30 Ref 5 ( Reported) Entered as Reported by: Ailyn Regalado on 01/21/18937 Last Action: Converted on 05/13/18910 by ANITA ALVARADO Insulin Glargine,Hum.rec.anlog (Lantus Solostar) 100 Unit/1 Ml Insuln.pen, 12 UNITS SQ DAILY10 for diabetes for 30 Days, #10 Prescribed by: ASHIA DEVRIES MD on 04/26/18 1438 Last Action: Continued on 05/13/18910 by ANITA ALVARADO Lactobacillus Rhamnosus Gg (Culturelle) 1 Each Cap.sprink, 1 CAP PO BID for gut health for 28 Days, #56 Prescribed by: ASHIA DEVRIES MD on 04/26/18 1438 Last Action: Continued on 05/13/18910 by ANITA ALVARADO Magnesium Oxide (Magnesium Oxide) 400 Mg Tablet, 250 TAB PO DAILY for deficiency , #30 Ref 5 (Reported) Entered as Reported by: Ailyn Regalado on 01/21/18 0932 Last Action: Converted on 05/13/18910 by ANITA ALVARADO Metformin Hcl (Metformin Hcl) 500 Mg Tablet, 500 MG PO BIDWMEALS for ANTI- DIABETIC, Ref 0 (Reported) Entered as Reported by: Ailny Regalado on 04/30/18 1045 Last Action: Converted on 05/13/18910 by ANITA ALVARADO Omeprazole (Omeprazole) 40 Mg Capsule.dr, 1 CAP PO DAILY for GERD, #30 Ref 3 ( Reported) Entered as Reported by: Ailyn Regalado on 01/21/1838 Last Action: Converted on 05/13/18910 by ANITA ALVARADO Ticagrelor (Brilinta) 90 Mg Tablet, 90 MG PO BID for CAD, #60 Prescribed by: BROOKE LI on 01/22/18 1256 Last Action: Continued on 05/13/18910 by ANITA ALVARADO Scheduled PRN Albuterol Sulfate (Proair Hfa) 8.5 Gm Hfa.aer.ad, 2.5 MG NEB PRN Q6HRS PRN for SHORTNESS OF BREATH MDD 1, #15 Prescribed by: NATHAN GUTIERREZ on 05/19/18 1056 Hydrocodone Bit/Acetaminophen (Hydrocodone-Apap 5-325 ) 1 Tab Tablet, 1 TAB PO PRN Q4HRS PRN for MODERATE PAIN MDD 1, #30 Prescribed by: NATHAN GUTIERREZ on 05/19/18 1056 Saliva Stimulant Agents Comb.3 (Biotene Moisturizing Mouth) 44.3 Ml [place], 2 SPRAY PO PRN Q15MIN PRN for DRY MOUTH for 30 Days, #60 Prescribed by: ASHIA DEVRIES MD on 04/26/18 1438 Last Action: Continued on 05/13/18 0911 by NATHAN DUFFY MD May 19, 2018 11:10
--- NOTE | 2018-05-19 11:14 | NUR ---
This nurse discussed with Wound Care ostomy teaching to wait until tomorrow, confirmed with Dr. Frey. Notified MD on the floor. This nurse will continue to monitor.
--- NOTE | 2018-05-19 11:45 | NUR ---
This nurse updated Bridget, after verification code was verified about POC to have ostomy teaching tomorrow at 1400, and then potentially transfer to [place] after education completed. This nurse will continue to monitor.
[2018-05-19] MEDS: IV NORMAL SALINE 1000ML BAG 1,000 ML IV SCH (12:01)
--- NOTE | 2018-05-19 15:00 | NUR ---
This nurse called ID to verify how long patient with be on PO abx, 7 days, notified SS. This nurse will continue to monitor.
[2018-05-19] MEDS: HYDROcodone/APAP 5/325MG 1 TAB TABLET PO PRN (20:28)
[2018-05-19] MEDS ORDERED: INSULIN GLARGINE 300 UNITS/3 ML INSULN.PEN. SQ SCH (21:00)
--- NOTE | 2018-05-20 00:21 | NUR ---
This nurse noticed red 'lump' on RUE above PICC line. area not warm to touch, pt. does not have any discomfort and line flushes well. Dr. Pope was paiged through [facility] at 1569. Dr. Pope called back and this nurse asked for an ultrasound. He stated it can wait till the morning. Order is in for an ultrasound this morning. Will continue to monitor.
[2018-05-20 03:00] VITALS: BP 105/66
[2018-05-20] MEDS: PANTOPRAZOLE IV PUSH 40 MG VIAL. IVP SCH (05:10)
[2018-05-20] MEDS: CLOTRIMAZOLE 10 MG TROCHE. MM SCH ×2 (05:10→10:00)
[2018-05-20 05:58] LABS: BASO # 0.1 x10^3/uL (0.0-0.2); BASO % 1 % (0-3); EOS # 0.5 x10^3/uL (0.0-0.7); EOS % 3 % (0-3); HEMATOCRIT 25.4 % (39.0-53.0); HEMOGLOBIN 8.3 g/dL (13.0-17.5); LYMPH # 1.4 x10^3/uL (1.0-4.8); LYMPH % 10 % (24-48); MEAN CORPUSCULAR HEMOGLOBIN 29 pg (25-35); MEAN CORPUSCULAR HGB CONC 33 g/dL (31-37); MEAN CORPUSCULAR VOLUME 88 fL (79-100); MONO # 0.9 x10^3/uL (0.0-1.1); MONO % 6 % (0-9); NEUT # 11.5 x10^3uL (1.8-7.7); NEUT % 80 % (31-73); PLATELET COUNT 334 x10^3/uL (140-400); RED CELL DISTRIBUTION WIDTH 14.8 % (11.5-14.5); WHITE BLOOD COUNT 14.4 x10^3/uL (4.0-11.0)
[2018-05-20 07:08] VITALS: BP 128/69
[2018-05-20] MEDS: INSULIN LISPRO 300 UNITS/3 ML INSULN.PEN. SQ SCH ×2 (08:00→13:11)
--- NOTE | 2018-05-20 08:17 | PDOC ---
SURGICAL PROGRESS NOTE Subjective Pt without c/o, stefany reg diet Vital Signs Vital Signs Date Time Temp Pulse Resp B/P (MAP) Pulse Ox O2 Delivery O2 Flow Rate FiO2 05/20/18 07:08 97.8 110 18 128/69 (88) 96 Room Air 97.8 05/19/18 17:06 1.0 I&O Intake and Output 05/20/18 06:59 Intake Total 890 ml Output Total 3095 ml Balance -2205 ml Intake Oral 890 ml Output Urine Total 850 ml Stool Total 1200 ml Other 1045 ml # Voids 3 General: Alert, Oriented X3, Cooperative, No acute distress Abdomen: Soft, No tenderness, Other (ostomy) Labs Laboratory Tests Test 05/18/18 11:17 05/18/18 16:44 05/18/18 20:42 05/19/18 05:00 Glucose (Fingerstick) 233 mg/dL (70-99) 114 mg/dL (70-99) 178 mg/dL (70-99) White Blood Count 16.7 x10^3/uL (4.0-11.0) Red Blood Count 2.76 x10^6/uL (4.30-5.70) Hemoglobin 7.9 g/dL (13.0-17.5) Hematocrit 24.0 % (39.0-53.0) Mean Corpuscular Volume 87 fL (79-100) Mean Corpuscular Hemoglobin 29 pg (25-35) Mean Corpuscular Hemoglobin Concent 33 g/dL (31-37) Red Cell Distribution Width 15.0 % (11.5-14.5) Platelet Count 326 x10^3/uL (140-400) Neutrophils (%) (Auto) 85 % (31-73) Lymphocytes (%) (Auto) 7 % (24-48) Monocytes (%) (Auto) 5 % (0-9) Eosinophils (%) (Auto) 2 % (0-3) Basophils (%) (Auto) 1 % (0-3) Neutrophils # (Auto) 14.2 x10^3uL (1.8-7.7) Lymphocytes # (Auto) 1.1 x10^3/uL (1.0-4.8) Monocytes # (Auto) 0.9 x10^3/uL (0.0-1.1) Eosinophils # (Auto) 0.3 x10^3/uL (0.0-0.7) Basophils # (Auto) 0.1 x10^3/uL (0.0-0.2) Erythrocyte Sedimentation Rate 103 (0-15) Test 05/19/18 07:39 05/19/18 08:53 05/19/18 11:34 05/19/18 16:41 Glucose (Fingerstick) 57 mg/dL (70-99) 142 mg/dL (70-99) 156 mg/dL (70-99) 96 mg/dL (70-99) Test 05/19/18 20:36 05/20/18 04:14 05/20/18 05:00 05/20/18 07:40 Glucose (Fingerstick) 134 mg/dL (70-99) 146 mg/dL (70-99) 123 mg/dL (70-99) White Blood Count 14.4 x10^3/uL (4.0-11.0) Red Blood Count 2.90 x10^6/uL (4.30-5.70) Hemoglobin 8.3 g/dL (13.0-17.5) Hematocrit 25.4 % (39.0-53.0) Mean Corpuscular Volume 88 fL (79-100) Mean Corpuscular Hemoglobin 29 pg (25-35) Mean Corpuscular Hemoglobin Concent 33 g/dL (31-37) Red Cell Distribution Width 14.8 % (11.5-14.5) Platelet Count 334 x10^3/uL (140-400) Neutrophils (%) (Auto) 80 % (31-73) Lymphocytes (%) (Auto) 10 % (24-48) Monocytes (%) (Auto) 6 % (0-9) Eosinophils (%) (Auto) 3 % (0-3) Basophils (%) (Auto) 1 % (0-3) Neutrophils # (Auto) 11.5 x10^3uL (1.8-7.7) Lymphocytes # (Auto) 1.4 x10^3/uL (1.0-4.8) Monocytes # (Auto) 0.9 x10^3/uL (0.0-1.1) Eosinophils # (Auto) 0.5 x10^3/uL (0.0-0.7) Basophils # (Auto) 0.1 x10^3/uL (0.0-0.2) Laboratory Tests Test 05/19/18 08:53 05/19/18 11:34 05/19/18 16:41 05/19/18 20:36 Glucose (Fingerstick) 142 mg/dL (70-99) 156 mg/dL (70-99) 96 mg/dL (70-99) 134 mg/dL (70-99) Test 05/20/18 04:14 05/20/18 05:00 05/20/18 07:40 Glucose (Fingerstick) 146 mg/dL (70-99) 123 mg/dL (70-99) White Blood Count 14.4 x10^3/uL (4.0-11.0) Red Blood Count 2.90 x10^6/uL (4.30-5.70) Hemoglobin 8.3 g/dL (13.0-17.5) Hematocrit 25.4 % (39.0-53.0) Mean Corpuscular Volume 88 fL (79-100) Mean Corpuscular Hemoglobin 29 pg (25-35) Mean Corpuscular Hemoglobin Concent 33 g/dL (31-37) Red Cell Distribution Width 14.8 % (11.5-14.5) Platelet Count 334 x10^3/uL (140-400) Neutrophils (%) (Auto) 80 % (31-73) Lymphocytes (%) (Auto) 10 % (24-48) Monocytes (%) (Auto) 6 % (0-9) Eosinophils (%) (Auto) 3 % (0-3) Basophils (%) (Auto) 1 % (0-3) Neutrophils # (Auto) 11.5 x10^3uL (1.8-7.7) Lymphocytes # (Auto) 1.4 x10^3/uL (1.0-4.8) Monocytes # (Auto) 0.9 x10^3/uL (0.0-1.1) Eosinophils # (Auto) 0.5 x10^3/uL (0.0-0.7) Basophils # (Auto) 0.1 x10^3/uL (0.0-0.2) Problem List s/p xlap doing well ostomy teaching today and then d/c to rehab LUIZA JOHNSON MD May 20, 2018 08:17
--- NOTE | 2018-05-20 09:24 | PDOC ---
Infectious Disease Note Subjective Subjective feeling good says RODOLFO RODOLFO no n/v/d/sob Vital Sign Vital Signs Vital Signs Date Time Temp Pulse Resp B/P (MAP) Pulse Ox O2 Delivery O2 Flow Rate FiO2 05/20/18 07:08 97.8 110 18 128/69 (88) 96 Room Air 97.8 05/19/18 17:06 1.0 Physical Exam PHYSICAL EXAM GENERAL: Propped up in bed, alert, NAD HEENT: Pupils equal and reactive. Oral cavity, pharynx clear, dentures NECK: Supple, no JVD. LUNGS: Clear to auscultation, HEART: S1, S2. ABDOMEN: Mildly distended, soft, tender to light palpation, hypoactive BS, dressing dry. ostomy bag sealed. JEREMY LLQ out : Ornelas in place EXTREMITIES: No clubbing, cyanosis or gross edema. SKIN: Warm to touch without signs of rash. NEUROLOGIC: Alert, nonfocal and appropriate. RUE-PICC (05/13) wo signs of complications Labs Lab Laboratory Tests Test 05/19/18 11:34 05/19/18 16:41 05/19/18 20:36 05/20/18 04:14 Glucose (Fingerstick) 156 mg/dL (70-99) 96 mg/dL (70-99) 134 mg/dL (70-99) 146 mg/dL (70-99) Test 05/20/18 05:00 05/20/18 07:40 White Blood Count 14.4 x10^3/uL (4.0-11.0) Red Blood Count 2.90 x10^6/uL (4.30-5.70) Hemoglobin 8.3 g/dL (13.0-17.5) Hematocrit 25.4 % (39.0-53.0) Mean Corpuscular Volume 88 fL (79-100) Mean Corpuscular Hemoglobin 29 pg (25-35) Mean Corpuscular Hemoglobin Concent 33 g/dL (31-37) Red Cell Distribution Width 14.8 % (11.5-14.5) Platelet Count 334 x10^3/uL (140-400) Neutrophils (%) (Auto) 80 % (31-73) Lymphocytes (%) (Auto) 10 % (24-48) Monocytes (%) (Auto) 6 % (0-9) Eosinophils (%) (Auto) 3 % (0-3) Basophils (%) (Auto) 1 % (0-3) Neutrophils # (Auto) 11.5 x10^3uL (1.8-7.7) Lymphocytes # (Auto) 1.4 x10^3/uL (1.0-4.8) Monocytes # (Auto) 0.9 x10^3/uL (0.0-1.1) Eosinophils # (Auto) 0.5 x10^3/uL (0.0-0.7) Basophils # (Auto) 0.1 x10^3/uL (0.0-0.2) Glucose (Fingerstick) 123 mg/dL (70-99) Micro ANAEROBIC-AEROBIC CULTURE Final Final report ANAEROBIC RES 1 Final Comment No anaerobic growth in 72 hours. AEROBIC CULT Final Final report AEROBIC RES 1 Final Escherichia coli 4+ AEROBIC RES 2 Final Yeast isolated. 4+ Request for further identification must be made within 1 week. AEROBIC RES 3 Final Mixed skin mireya 4+ ANTIMICROBIAL SUSCEPTIBILITY Final Comment S = Susceptible; I = Intermediate; R = Resistant P = Positive; N = Negative MICS are expressed in micrograms per mL Antibiotic RSLT#1 RSLT#2 RSLT#3 RSLT#4 Amoxicillin/Clavulanic Acid S =8 Ampicillin R =R CONTINUED ON NEXT PAGE RUN DATE: 05/15/18 PAGE 2 RUN TIME: 1810 [facility] [address] [place] [address] Jonathan Sauceda M.D., Lead Database Administrator SPEC: [id number] PATIENT: EDITH SELBY [id number] ( Continued) Procedure Result ANTIMICROBIAL SUSCEPTIBILITY Final (continued) Cefepime S<=0.12 Ceftriaxone S<=0.25 Cefuroxime R>=64 Ciprofloxacin R>=4 Ertapenem S<=0.12 Gentamicin S<=1 Imipenem S<=0.25 Levofloxacin R>=8 Meropenem S<=0.25 Piperacillin/Tazobactam S<=4 Tetracycline S<=1 Tobramycin S<=1 Trimethoprim/Sulfa S<=20 GRAM STAIN Final Final report GRAM STAIN RES 1 Final Comment No white blood cells seen. GRAM STAIN RES 2 Final Comment Few gram negative rods. GRAM STAIN RES 3 Final Comment Few gram positive cocci GRAM STAIN RES 4 Final Comment Few gram positive rods. 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 Recurrent abdominal abscesses s/p drain on 05/11 with growth of mixed mireya, yeast and E. coli (R quinolones, amp, cefuroxime) - h/o IR drain on 04/21 with growth of Bacteroides, E. coli (R quinolones), Klebsiella and (yeast on GS) Leukocytosis - likely reactive in part to steroids and surgery on 05/15 Transaminitis - better Thrush - better DM s/p cystoscopy with bilateral stent placement, 05/15. Plan Plan of Care po omnicef for 7 days d/c picc ok to d/c D/w ALEXA MULLINS MD May 20, 2018 09:24
--- NOTE | 2018-05-20 09:33 | RAD ---
Right upper extremity venous doppler ultrasound History: LUMP ABOVE PICC LINE, SWELLING Comparison: None Findings: Multiple grayscale, color, and duplex spectral analysis sonographic images were acquired of the right upper extremity veins to evaluate for the presence of DVT thrombosis. There is occlusive thrombus in one of the brachial veins, remainder of the interrogated right upper extremity veins patent with normal color flow and phasicity. Right upper extremity PICC is not well demonstrated although not apparently in the brachial vein. Impression: 1. There is occlusive thrombus in one of the right brachial veins. FOR INTERNAL CODING PURPOSES Critical result: Findings discussed with patient's nurse Anna at 05/20/2018 9:29 AM. RESULT CODE: (C) Electronically signed by: Marcelo White MD (05/20/2018 9:30 AM) [id number]
[2018-05-20] MEDS: CHOLECALCIFEROL (VITAMIN D3) 1,000 UNIT TABLET PO SCH (09:57)
[2018-05-20] MEDS: MAGNESIUM OXIDE 400 MG TABLET PO SCH (09:58)
[2018-05-20] MEDS: metFORMIN 500 MG TABLET PO SCH (09:58)
[2018-05-20] MEDS: LACTOBACILLUS RHAMNOSUS GG 1 CAPSULE. PO SCH (09:59)
[2018-05-20] MEDS: amLODIPine BESYLATE 5 MG TABLET PO SCH (10:00)
[2018-05-20] MEDS: METOPROLOL TART IMMED RELEASE 50 MG TABLET. PO SCH (10:00)
[2018-05-20] MEDS: CEFDINIR 300 MG CAPSULE PO SCH (10:00)
[2018-05-20] MEDS: ASPIRIN ENTERIC COATED 81 MG TABLET.DR. PO SCH (10:01)
[2018-05-20] MEDS: ENOXAPARIN 40 MG/0.4 ML SYRINGE. SQ SCH (10:01)
--- NOTE | 2018-05-20 10:07 | PATHOLOGY ---
[facility] Accession Number: [id number] . 01 Material submitted: . PART A: SMALL BOWEL MASS PART B: APPENDIX PART C: DRAIN-DUODENAL STENT PART D: ILEOCOLIC RESECTION PART E: SIGMOID COLON STITCH ON DISTAL END . 01 Clinical history: . Perforated diverticulitis, pelvic abscess . 02 Diagnosis: A. Fibroadipose tissue, small bowel mass: - Fibrosis, marked vascular congestion, and focal fat necrosis-negative for malignancy. . B. Appendix, excision: - Fibrous obliteration of distal appendiceal lumen. - Focal serosal adhesions. . C. Duodenal stent (Gross only) - Segment of distal ileum and right colon with attached mesentery/mesocolon. . D. Segment of distal ileum and right colon with attached mesentery/mesocolon, Ileocolic resection: - Extensive serosal fibrosis and adhesions of distal ileum and cecum with focal serosal acute inflammatory exudate and focal foreign body granulomatous reaction. - Adiposity of ileocecal valve. . E. Segment of colon with attached mesocolon, sigmoid colon segmental resection: - Diverticulosis. - Chronic and focal acute diverticulitis with pericolic abscesses and with pericolic fibrosis, adhesions, and foreign body granulomatous reaction. . (JEREMYM:mihaela; 05/19/2018) MBR/05/20/2018 . 02 Comment: There is no evidence of malignancy. (AMADOR:mihaela; 05/19/2018) . 02 Electronically signed: . Jonathan Sauceda MD, Pathologist NPI- [id number] . 01 Gross description: . A. The specimen is received in formalin, labeled "Queen, [place], small bowel mass" and consists of a fragment of purple-brown tissue measuring 0.8 x 0.5 x 0.3 cm. It is inked black, bisected, and entirely submitted in A1. . B. The specimen is received in formalin, labeled "Kip Queen, appendix" and consists of an appendix measuring 5.5 cm in length and 0.4-0.7 cm in diameter with a small amount of mesoappendix lining the specimen measuring up to 0.5 cm. The margin is closed with a line of deana and inked black. The serosa is purple-soriano with adhesions. Sectioning reveals a pinpoint lumen and no mucosal masses or lesions. Cloth Bin Packer sections are submitted in B1. . C. The specimen is received fresh, labeled "Kip Queen, duodenum stent drain" and consists of a blue plastic tube measuring 16.3 cm in length and 0.3 cm in diameter. Gross photos are taken. . D. The specimen is received in formalin, labeled "QueenKip eid, ileocolic resection" and consists of a previously opened right hemicolectomy specimen consisting of tortuous and firm small bowel (approximately 35.0 cm in length and up to 2.7 cm in diameter), large intestine (21.0 cm in length and ranging from 3.5-5.5 cm in diameter), and pericolic fat which measures up to 4.0 cm. The appendix is absent and both margins are closed with deana. The terminal ileum serosa is dark brown/purple with purulent material. The large intestine serosa is soriano-roque with cecal adhesions and creeping fat. The terminal ileum mucosa is green with no masses or lesions and displays a markedly thickened/fibrous wall. The large intestine mucosa is green-roque with no polyps or mass lesions. The ileocecal valve is fatty. Cloth Bin Packer sections are submitted as follows: . D1: Proximal margin D2: Distal margin D3-D4: Terminal ileum D5: Ileocecal valve D6: Large intestine mucosa . E. The specimen is received in formalin, labeled "Kip Queen, sigmoid colon" and consists of an oriented and previously opened segment of large intestine measuring approximately 18.0 cm in length and 2.3 cm in diameter with firm pericolic fat lining the entire specimen measuring up to 8.6 cm. Both margins are closed with deana and a suture is present designating the distal end. The serosa is soriano-roque with marked hemorrhage, adhesions, and purulent material near the distal margin. The pericolic tissue lining the entire specimen is markedly hemorrhagic, necrotic with purulent material. The mucosa is roque with no polyps or mass lesions and the wall is markedly thickened/fibrous. Sectioning reveals multiple diverticula which measure up to 1.1 cm and extend into the pericolic tissue. None of these diverticula grossly appear perforated and no obvious sinus tract is identified. Cloth Bin Packer sections are submitted as follows: . E1: Proximal margin E2: Distal margin E3-E4: Cloth Bin Packer diverticula E5-E6: Overlying exudate/purulent material (SDY; 05/18/2018) SYU/SYU . 02 Pathologist provided ICD-10: K57.32, K57.30, K52.9, K63.0, K38.8 . 02 CPT . 001055, 946146, 276930, 135770, [id number] Specimen Comment: A courtesy copy of this report has been sent to Specimen Comment: [phone], , . Specimen Comment: Report sent to ,DR ALVARADO / DR OVALLE Specimen Comment: A duplicate report has been generated due to demographic updates. Performed at: 01 [facility] [address], [place], [place] [id number] MD Иван Hammond MD Phone: [phone] Performed at: 02 [facility] [address] [place], [place] [id number] MD Jonathan Sauceda MD Phone: [phone]
[2018-05-20 10:30] VITALS: BP 117/65
--- NOTE | 2018-05-20 10:52 | PDOC ---
Provider Note Provider Note Pt did not DC to [facility] yesterday because needing for colostomy education We'll happen today Okay to DC Velvet drain as discussed with surgery Med list on chart Discharge instructions done DC summary done No addendum Pt seen and examined Dw NATHAN RUIZ MD May 20, 2018 10:52
[2018-05-20] MEDS: oxyCODONE/APAP 5/325 1 TAB TABLET PO PRN (11:28)
--- NOTE | 2018-05-20 11:55 | NUR ---
SW following. Discussed with RN, pt has been clinically accepted at [facility]. Pt had an ultrasound today. SW will continue to follow to determine when pt is ready for discharge to [place]. RN notified.
[2018-05-20] MEDS: IV NORMAL SALINE 1000ML BAG 1,000 ML IV SCH (12:01)
[2018-05-20] MEDS ORDERED: ONDANSETRON ODT 4 MG TAB.RAPDIS. PO PRN (13:15)
[2018-05-20] MEDS: HYDROcodone/APAP 5/325MG 1 TAB TABLET PO PRN (13:33)
--- NOTE | 2018-05-20 15:07 | NUR ---
SW following for discharge planning. Pt will be transported by [facility] to [place] at 1530. Pt choice and rights letter signed and placed on chart. RN notified. No further SW needs.
--- NOTE | 2018-05-20 15:10 | NUR ---
ostomy care patient seen per ostomy education. patients present for teaching. education and walked through the process of how to change the bag. patient enrolled in the [employer] program at this time. ostomy team will continue to f/u for questions.
--- NOTE | 2018-05-20 15:45 | NUR ---
Report given at 1505. Packet given to transportation. Rx in packet. Pt is to f/u with [facility] in two weeks. Pt was escorted to main entrance by transport at 1530.
[2018-06-02] MEDS ORDERED: CEFP200T PO (15:24)
[2018-06-02] MEDS ORDERED: OXYC5CAP PO (15:24)
== END 2018-05-20 15:30 | DRG 853 ==
LOC: ER 10:57 → 4 NORTH 14:32
PROVIDERS: ADMIT Internal Medicine; ATTEND Internal Medicine
PROC: 0W9J30Z Drainage of Pelvic Cavity with Drainage Device, Percutaneous Approach (ICD-10-PCS; 2018-05-11)
PROC: 5A09357 Assistance with Respiratory Ventilation, Less than 24 Consecutive Hours, Continuous Positive Airway Pressure (ICD-10-PCS; 2018-05-11)
PROC: 02HV33Z Insertion of Infusion Device into Superior Vena Cava, Percutaneous Approach (ICD-10-PCS; 2018-05-13)
PROC: B5181ZA Fluoroscopy of Superior Vena Cava using Low Osmolar Contrast, Guidance (ICD-10-PCS; 2018-05-13)
PROC: B548ZZA Ultrasonography of Superior Vena Cava, Guidance (ICD-10-PCS; 2018-05-13)
PROC: 0DBB0ZZ Excision of Ileum, Open Approach (ICD-10-PCS; 2018-05-15)
PROC: 0T788DZ Dilation of Bilateral Ureters with Intraluminal Device, Via Natural or Artificial Opening Endoscopic (ICD-10-PCS; 2018-05-15)
PROC: 0DBN0ZZ Excision of Sigmoid Colon, Open Approach (ICD-10-PCS; 2018-05-15)
PROC: 0DNB0ZZ Release Ileum, Open Approach (ICD-10-PCS; 2018-05-15)
PROC: 0DNN0ZZ Release Sigmoid Colon, Open Approach (ICD-10-PCS; 2018-05-15)
PROC: 0DNF0ZZ Release Right Large Intestine, Open Approach (ICD-10-PCS; 2018-05-15)
PROC: 0WPG00Z Removal of Drainage Device from Peritoneal Cavity, Open Approach (ICD-10-PCS; 2018-05-15)
PROC: 0WJG4ZZ Inspection of Peritoneal Cavity, Percutaneous Endoscopic Approach (ICD-10-PCS; principal; 2018-05-15 08:00)
PROC: 0D1B0Z4 Bypass Ileum to Cutaneous, Open Approach (ICD-10-PCS; 2018-05-15 08:00)
DX: A41.9 Sepsis, unspecified organism (principal); E43 Unspecified severe protein-calorie malnutrition; K65.1 Peritoneal abscess; G93.40 Encephalopathy, unspecified; Z68.1 Body mass index [BMI] 19.9 or less, adult; K57.00 Diverticulitis of small intestine with perforation and abscess without bleeding; E11.9 Type 2 diabetes mellitus without complications; E78.5 Hyperlipidemia, unspecified; I10 Essential (primary) hypertension; B37.9 Candidiasis, unspecified; J44.9 Chronic obstructive pulmonary disease, unspecified; I25.10 Atherosclerotic heart disease of native coronary artery without angina pectoris; R74.0 Nonspecific elevation of levels of transaminase and lactic acid dehydrogenase [LDH]; M19.90 Unspecified osteoarthritis, unspecified site; D63.8 Anemia in other chronic diseases classified elsewhere; E78.00 Pure hypercholesterolemia, unspecified; K66.0 Peritoneal adhesions (postprocedural) (postinfection); N40.1 Benign prostatic hyperplasia with lower urinary tract symptoms; K21.9 Gastro-esophageal reflux disease without esophagitis; K59.00 Constipation, unspecified; G89.18 Other acute postprocedural pain; Y92.238 Other place in hospital as the place of occurrence of the external cause; W18.39XA Other fall on same level, initial encounter; Y93.89 Activity, other specified; Y99.8 Other external cause status; Z79.51 Long term (current) use of inhaled steroids; Z53.31 Laparoscopic surgical procedure converted to open procedure; Z95.5 Presence of coronary angioplasty implant and graft; Z79.899 Other long term (current) drug therapy; Z79.02 Long term (current) use of antithrombotics/antiplatelets; Z79.4 Long term (current) use of insulin; Z87.891 Personal history of nicotine dependence; Z90.49 Acquired absence of other specified parts of digestive tract; Z91.040 Latex allergy status
CPT/HCPCS: 36415; 36569; 49406; 74018; 74177; 75820; 76937; 77001; 80048; 80053; 81001; 82378; 82962; 83036; 83605; 83690; 83735; 84100; 84478; 84484; 85007; 85025; 85610; 85651; 87040; 87071; 87075; 87086; 87106; 87186; 88300; 88304; 88307; 93005; 93971; 96361; 96365; 96368; 96375; 99152; A4215; A7015; C1729; C1751; C1769; C1894; C9113; G0238; J0610; J0744; J0780; J1100; J1650; J1815; J1885; J2001; J2020; J2185; J2248; J2250; J2270; J2405; J2704; J2710; J3010; J3475; J3480; J3490; J7030; J7040; J7042; J7613; Q0162; Q9966; Q9967; 97110; 97116; 97530; 97535; 99285-25; A4461

== ENCOUNTER 2018-05-22 08:29 | Emergency (ER) | payer MEDICARE, BC ==
[~2018-05-22] VITALS: Ht 177.8 cm; Wt 62.6 kg
[2018-05-22 08:29] VITALS: BP 110/74
[~2018-05-22 08:29] MED LIST changes: +ALBU2.5V8 NEB; +CEFD300C PO; +HYDR-2761 PO
--- NOTE | 2018-05-22 09:54 | PHYS DOC ---
Past Medical History Past Medical History: CAD, COPD, Diabetes-Type II, High Cholesterol, Hype rtension, Other Additional Past Medical Histor: enlarged prostate, ABSCESS IN COLON Past Surgical History: Cholecystectomy, TURP, Other Additional Past Surgical Histo: cardiac cath with stent; ILEOSTOMY Alcohol Use: Rarely Drug Use: None Adult General Chief Complaint Chief Complaint: POST-OP PROBLEM HPI HPI Patient is a 82 year old male who presents with a need for an ileostomy bag change. He recently had surgery for an abscess that penetrated his colon. He denies abdominal pain or fever. Review of Systems Review of Systems Constitutional: Denies fever or chills [] Respiratory: Denies cough or shortness of breath [] Cardiovascular: No additional information not addressed in HPI [] GI: See HPI : Denies dysuria or hematuria [] Musculoskeletal: Denies back pain or joint pain [] Integument: Denies rash or skin lesions [] Neurologic: Denies headache, focal weakness or sensory changes [] Endocrine: Denies polyuria or polydipsia [] All other systems were reviewed and found to be within normal limits, except as documented in this note. Allergies Allergies Allergies Coded Allergies Type Severity Reaction Last Updated Verified latex Allergy Intermediate rash/blisters, 01/21/18 Yes Physical Exam Physical Exam Constitutional: Well developed, well nourished, no acute distress, non-toxic appearance. [] HENT: Normocephalic, atraumatic, bilateral external ears normal, oropharynx moist, no oral exudates, nose normal. [] Eyes: PERRLA, EOMI, conjunctiva normal, no discharge. [] Neck: Normal range of motion, no tenderness, supple, no stridor. [] Cardiovascular:Heart rate regular rhythm, no murmur [] Lungs & Thorax: Bilateral breath sounds clear to auscultation [] Abdomen: Ileostomy bag in place with some erythema noted around bag, the bag is not seated correctly. Skin: Warm, dry, no erythema, no rash. [] Back: No tenderness, no CVA tenderness. [] Extremities: No tenderness, no cyanosis, no clubbing, ROM intact, no edema. [] Neurologic: Alert and oriented X 3, normal motor function, normal sensory function, no focal deficits noted. [] Psychologic: Affect normal, judgement normal, mood normal. [] Current Patient Data Vital Signs EKG EKG [] Radiology/Procedures Radiology/Procedures The bag was changed and correctly positioned. The patient tolerated the procedure well.[] Course & Med Decision Making Course & Med Decision Making Pertinent Labs and Imaging studies reviewed. (See chart for details) [] Dragon Disclaimer Dragon Disclaimer This electronic medical record was generated, in whole or in part, using a voice recognition dictation system. Departure Departure Impression: Primary Impression: Ileostomy bag changed Disposition: HOME, SELF-CARE Condition: STABLE Referrals: CARISSA OVALLE MD (PCP) Patient Instructions: Ileostomy Home Guide Additional Instructions: Keep the bag changed as directed. Follow-up with your surgeon for your next scheduled appointments. If worsening return to the emergency department. NEGRA LUGO APRN May 22, 2018 09:54
[2018-06-02] MEDS ORDERED: OXYC5CAP PO (15:24)
[2018-06-02] MEDS ORDERED: CEFP200T PO (15:24)
== END 2018-05-22 10:15 | disposition home or self-care (01) ==
LOC: ER 08:29
DX: T83.038A Leakage of other urinary catheter, initial encounter (principal); Y82.8 Other medical devices associated with adverse incidents; Y92.89 Other specified places as the place of occurrence of the external cause; J44.9 Chronic obstructive pulmonary disease, unspecified; E78.00 Pure hypercholesterolemia, unspecified; I10 Essential (primary) hypertension; E11.9 Type 2 diabetes mellitus without complications; I25.10 Atherosclerotic heart disease of native coronary artery without angina pectoris; Z90.49 Acquired absence of other specified parts of digestive tract; Z95.5 Presence of coronary angioplasty implant and graft; Z91.040 Latex allergy status
CPT/HCPCS: 99284-25

== ENCOUNTER 2018-05-25 19:10 | Inpatient (IN) | payer MEDICARE, BC ==
[~2018-05-25] VITALS: Ht 170.2 cm; Wt 50.0 kg
[2018-05-25] MEDS ORDERED: FAMOTIDINE 20 MG/2 ML VIAL IVP ONE (19:45)
[2018-05-25] MEDS ORDERED: ONDANSETRON PF 4 MG/2 ML VIAL. IV ONE (19:45)
[2018-05-25] MEDS ORDERED: fentaNYL PF VIAL 100 MCG/2 ML VIAL IV ONE (19:45)
[2018-05-25] MEDS ORDERED: IV NORMAL SALINE 1000ML BAG 1,000 ML IV ONE ×2 (19:45→21:15)
[2018-05-25 20:03] LABS: CALCIUM 9.2 mg/dL (8.5-10.1); CREATININE 1.5 mg/dL (0.7-1.3); GFR 44.9; POTASSIUM 5.5 mmol/L (3.5-5.1)
[2018-05-25 20:04] LABS: BASO # 0.2 x10^3/uL (0.0-0.2); BASO % 1 % (0-3); EOS # 0.2 x10^3/uL (0.0-0.7); EOS % 2 % (0-3); HEMATOCRIT 33.3 % (39.0-53.0); HEMOGLOBIN 11.1 g/dL (13.0-17.5); LYMPH % 14 % (24-48); MEAN CORPUSCULAR HEMOGLOBIN 29 pg (25-35); MEAN CORPUSCULAR HGB CONC 33 g/dL (31-37); MEAN CORPUSCULAR VOLUME 88 fL (79-100); MONO # 1.3 x10^3/uL (0.0-1.1); MONO % 9 % (0-9); NEUT # 11.2 x10^3uL (1.8-7.7); NEUT % 75 % (31-73); PLATELET COUNT 875 x10^3/uL (140-400); PROTHROMBIN TIME PATIENT 14.1 SEC (11.7-14.0); RED BLOOD COUNT 3.77 x10^6/uL (4.30-5.70); RED CELL DISTRIBUTION WIDTH 15.6 % (11.5-14.5)
[2018-05-25 20:09] LABS: ALBUMIN 2.8 g/dL (3.4-5.0); ALBUMIN/GLOBULIN RATIO 0.5 (1.0-1.7); TOTAL BILIRUBIN 0.2 mg/dL (0.2-1.0); TOTAL PROTEIN 7.9 g/dL (6.4-8.2)
[2018-05-25 20:17] LABS: CREATINE KINASE 34 U/L (39-308)
[2018-05-25] MEDS ORDERED: IV NORMAL SALINE 500ML BAG 500 ML IV ONE (21:15)
[2018-05-25] MEDS ORDERED: VANCOMYCIN 1.5 GM in IV NORMAL SALINE 500ML BAG 500 ML IV ONE (21:15)
[2018-05-25] MEDS ORDERED: PIPERACILLIN/TAZOBACTAM 3.375 GM in IV NORMAL SALINE 50ML 50 ML IV ONE (21:15)
[2018-05-25 21:30] LABS: BILIRUBIN,URINE NEGATIVE (NEG); CLARITY,URINE CLEAR; COLOR,URINE YELLOW; NITRITE,URINE NEGATIVE (NEG); PROTEIN,URINE NEGATIVE (NEG-TRACE); UROBILINOGEN,URINE 0.2 mg/dL (0.2 mg/dL)
[2018-05-25] MEDS: INSULIN REGULAR 100 UNIT/ML 3ML VIAL. IV ONE ×2 (21:40→21:42)
[2018-05-25 21:44] LABS: BACTERIA,URINE 0 /HPF (0-FEW); HYALINE CASTS, URINE MODERATE /HPF; RBC,URINE 0 /HPF (0-2); SQUAMOUS EPITHELIAL CELL,UR FEW /LPF; WBC,URINE OCC /HPF (0-4)
--- NOTE | 2018-05-25 21:54 | RAD ---
CT ABD PEL W/ORAL CONTRST ONLY Indication: Nausea and pain, recent colectomy/colostomy Technique: Noncontrast CT imaging was performed of the abdomen and pelvis, multiplanar reconstruction images submitted. Oral contrast was given. One or more of the following individualized dose reduction techniques were utilized for this examination: 1. Automated exposure control 2. Adjustment of the mA and/or kV according to patient size 3. Use of iterative reconstruction technique. Comparison: 05/10/2018 Findings: There is pneumoperitoneum. There is now a right abdominal ileostomy, interval right hemicolectomy. There may be mild dependent hemorrhage in the left pelvis, although difficult to distinguish from adjacent bowel. Small bowel is not significantly dilated although there is appearance of wall thickening of small bowel left abdomen. There is also appearance of gastric wall thickening. There is again mild fullness of the left adrenal gland. There is no hydronephrosis of either kidney. There is 0.7 cm calculus the right renal pelvis as seen previously. No new obvious focal abnormality is identified of the liver, spleen, pancreas allowing for noncontrast technique. There is atherosclerotic calcification of the abdominal aorta. There is some gas in the urinary bladder lumen, mild distention. There is emphysema visualized lung bases. IMPRESSION: 1. There is pneumoperitoneum although this can be seen normally after recent surgery, now right ileostomy and interval right hemicolectomy. No discrete extraluminal fluid collection is identified other than mild dependent hemorrhage in the left pelvis. There is no evidence of bowel obstruction. However there may be small bowel wall thickening in the left abdomen as could be seen with enteritis, also appearance of gastric wall thickening as could be seen with gastritis. 2. There is emphysema. 3. There is 0.7 cm calculus in the right renal pelvis without obstruction. 4. There is some gas in the urinary bladder lumen although could be due to recent instrumentation/catheterization if corresponding history. Electronically signed by: Marcelo White MD (05/25/2018 9:51 PM) [facility]
[2018-05-25 22:08] LABS: PLT ESTIMATE INCREASED (ADEQUATE)
[2018-05-25] MEDS ORDERED: INSULIN REGULAR 100 UNIT/ML 3ML VIAL. IV ONE (22:45)
--- NOTE | 2018-05-25 23:33 | PHYS DOC ---
Past Medical History Past Medical History: CAD, COPD, Diabetes-Type II, Diverticulitis, High Cholesterol, Hypertension, Other Additional Past Medical Histor: enlarged prostate, ABSCESS IN COLON, ATHERSCLEROTIC HEART DISEASE, BPH Past Surgical History: Cholecystectomy, TURP, Other Additional Past Surgical Histo: cardiac cath with stent; ILEOSTOMY Alcohol Use: None Drug Use: None Adult General Chief Complaint Chief Complaint: GI PROBLEM HPI HPI 82 y/o male presents with history of lower abdominal pain. History of recent surgery to remove abdominal abscesses. Denies fever/chills. Reports recent WBC elevated at [facility]. Patient sent to ED for further evaluation. Review of Systems Review of Systems Constitutional: Denies fever or chills [] Eyes: Denies change in visual acuity, redness, or eye pain [] HENT: Denies nasal congestion or sore throat [] Respiratory: Denies cough or shortness of breath [] Cardiovascular: Denies chest pain or palpitations GI: Reports abdominal pain; denies nausea, vomiting : Denies dysuria or hematuria [] Musculoskeletal: Denies back pain or joint pain [] Integument: Denies rash or skin lesions [] Neurologic: Denies headache, focal weakness or sensory changes [] Complete systems were reviewed and found to be within normal limits, except as documented in this note. Current Medications Current Medications Current Medications Medications (Trade) Dose Ordered Sig/Annie Start Time Stop Time Status Last Admin Dose Admin Famotidine (Pepcid Vial) 20 mg 1X ONCE 05/25/18 19:45 05/25/18 19:46 DC 05/25/18 20:00 20 MG Fentanyl Citrate (Fentanyl 2ml Vial) 50 mcg 1X ONCE 05/25/18 19:45 05/25/18 19:46 DC 05/25/18 20:01 50 MCG Insulin Human Regular (HumuLIN R VIAL) 5 unit 1X ONCE 05/25/18 22:45 05/25/18 22:46 DC 05/25/18 21:40 5 UNIT Ondansetron HCl (Zofran) 4 mg 1X ONCE 05/25/18 19:45 05/25/18 19:46 DC 05/25/18 20:01 4 MG Piperacillin Sod/ Tazobactam Sod 3.375 gm/Sodium Chloride 50 ml @ 100 mls/hr 1X ONCE 05/25/18 21:15 05/25/18 21:44 DC 05/25/18 21:40 100 MLS/HR Sodium Chloride 500 ml @ 500 mls/hr 1X ONCE 05/25/18 21:15 05/25/18 21:15 DC Vancomycin HCl (Vanco Per Pharmacy) 1 each PRN DAILY PRN 05/25/18 21:30 05/28/18 08:47 DC 05/27/18 22:37 1 EACH Vancomycin HCl 1.5 gm/Sodium Chloride 500 ml @ 250 mls/hr 1X ONCE 05/25/18 21:15 05/25/18 23:14 DC 05/25/18 22:32 250 MLS/HR Allergies Allergies Allergies Coded Allergies Type Severity Reaction Last Updated Verified latex Allergy Intermediate rash/blisters, 01/21/18 Yes Physical Exam Physical Exam Constitutional: Well developed, well nourished, no acute distress HENT: Normocephalic, atraumatic, oropharynx moist Eyes: Conjunctiva normal, no discharge. [] Neck: Normal range of motion, no tenderness, supple, no stridor. [] Cardiovascular:Heart rate regular rhythm, no murmur [] Lungs & Thorax: Bilateral breath sounds clear to auscultation [] Abdomen: Soft, bilateral lower quadrant tenderness, ostomy with positive output Skin: Warm, dry, no erythema, no rash. [] Back: No tenderness, no CVA tenderness. [] Extremities: No tenderness, ROM intact, no edema. [] Neurologic: Alert and oriented X 3, normal motor function, normal sensory function, no focal deficits noted. [] Psychologic: Affect normal, judgement normal, mood normal. [] Current Patient Data Vital Signs Vital Signs Date Time Temp Pulse Resp B/P (MAP) Pulse Ox O2 Delivery O2 Flow Rate FiO2 05/25/18 23:30 93 110/63 (79) 97 Room Air 05/25/18 20:01 16 05/25/18 19:11 98.8 98.8 Lab Values Laboratory Tests Test 05/25/18 19:20 05/25/18 21:20 05/25/18 21:45 White Blood Count 15.0 x10^3/uL (4.0-11.0) H Red Blood Count 3.77 x10^6/uL (4.30-5.70) L Hemoglobin 11.1 g/dL (13.0-17.5) L Hematocrit 33.3 % (39.0-53.0) L Mean Corpuscular Volume 88 fL (79-100) Mean Corpuscular Hemoglobin 29 pg (25-35) Mean Corpuscular Hemoglobin Concent 33 g/dL (31-37) Red Cell Distribution Width 15.6 % (11.5-14.5) H Platelet Count 875 x10^3/uL (140-400) H Neutrophils (%) (Auto) 75 % (31-73) H Lymphocytes (%) (Auto) 14 % (24-48) L Monocytes (%) (Auto) 9 % (0-9) Eosinophils (%) (Auto) 2 % (0-3) Basophils (%) (Auto) 1 % (0-3) Neutrophils # (Auto) 11.2 x10^3uL (1.8-7.7) H Lymphocytes # (Auto) 2.0 x10^3/uL (1.0-4.8) Monocytes # (Auto) 1.3 x10^3/uL (0.0-1.1) H Eosinophils # (Auto) 0.2 x10^3/uL (0.0-0.7) Basophils # (Auto) 0.2 x10^3/uL (0.0-0.2) Platelet Estimate Increased (ADEQUATE) Large Platelets Occ Giant Platelets Occ Prothrombin Time 14.1 SEC (11.7-14.0) H Prothrombin Time INR 1.1 (0.8-1.1) PTT 30 SEC (24-38) Sodium Level 129 mmol/L (136-145) L Potassium Level 5.5 mmol/L (3.5-5.1) H Chloride Level 94 mmol/L (98-107) L Carbon Dioxide Level 23 mmol/L (21-32) Anion Gap 12 (6-14) Blood Urea Nitrogen 44 mg/dL (8-26) H Creatinine 1.5 mg/dL (0.7-1.3) H Estimated GFR (Cockcroft-Gault) 44.9 BUN/Creatinine Ratio 29 (6-20) H Glucose Level 358 mg/dL (70-99) H Lactic Acid Level 4.0 mmol/L (0.4-2.0) *H Calcium Level 9.2 mg/dL (8.5-10.1) Total Bilirubin 0.2 mg/dL (0.2-1.0) Aspartate Amino Transferase (AST) 129 U/L (15-37) H Alanine Aminotransferase (ALT) 151 U/L (16-63) H Alkaline Phosphatase 154 U/L (46-116) H Creatine Kinase 34 U/L (39-308) L Creatine Kinase MB (Mass) 1.4 ng/mL (0.0-3.6) Creatine Kinase MB Relative Index % (0-4) Troponin I Quantitative < 0.017 ng/mL (0.000-0.055) Total Protein 7.9 g/dL (6.4-8.2) Albumin 2.8 g/dL (3.4-5.0) L Albumin/Globulin Ratio 0.5 (1.0-1.7) L Lipase 1056 U/L (73-393) H Urine Collection Type Unknown Urine Color Yellow Urine Clarity Clear Urine pH 5.0 Urine Specific [place] 1.025 Urine Protein Negative mg/dL (NEG-TRACE) Urine Glucose (UA) >=1000 mg/dL (NEG) Urine Ketones (Stick) Negative mg/dL (NEG) Urine Blood Negative (NEG) Urine Nitrite Negative (NEG) Urine Bilirubin Negative (NEG) Urine Urobilinogen Dipstick 0.2 mg/dL (0.2 mg/dL) Urine Leukocyte Esterase Negative (NEG) Urine RBC 0 /HPF (0-2) Urine WBC Occ /HPF (0-4) Urine Squamous Epithelial Cells Few /LPF Urine Bacteria 0 /HPF (0-FEW) Urine Hyaline Casts Moderate /HPF Urine Mucus Marked /LPF Glucose (Fingerstick) 201 mg/dL (70-99) H Laboratory Tests 05/25/18 19:20 Laboratory Tests 05/25/18 19:20 EKG EKG @1925 Tachycardia at 130bpm, NO ST elevation Radiology/Procedures Radiology/Procedures PROCEDURE: CT ABD PEL W/ORAL CONTRST ONLY CT ABD PEL W/ORAL CONTRST ONLY Indication: Nausea and pain, recent colectomy/colostomy Technique: Noncontrast CT imaging was performed of the abdomen and pelvis, multiplanar reconstruction images submitted. Oral contrast was given. One or more of the following individualized dose reduction techniques were utilized for this examination: 1. Automated exposure control 2. Adjustment of the mA and/or kV according to patient size 3. Use of iterative reconstruction technique. Comparison: 05/10/2018 Findings: There is pneumoperitoneum. There is now a right abdominal ileostomy, interval right hemicolectomy. There may be mild dependent hemorrhage in the left pelvis, although difficult to distinguish from adjacent bowel. Small bowel is not significantly dilated although there is appearance of wall thickening of small bowel left abdomen. There is also appearance of gastric wall thickening. There is again mild fullness of the left adrenal gland. There is no hydronephrosis of either kidney. There is 0.7 cm calculus the right renal pelvis as seen previously. No new obvious focal abnormality is identified of the liver, spleen, pancreas allowing for noncontrast technique. There is atherosclerotic calcification of the abdominal aorta. There is some gas in the urinary bladder lumen, mild distention. There is emphysema visualized lung bases. IMPRESSION: 1. There is pneumoperitoneum although this can be seen normally after recent surgery, now right ileostomy and interval right hemicolectomy. No discrete extraluminal fluid collection is identified other than mild dependent hemorrhage in the left pelvis. There is no evidence of bowel obstruction. However there may be small bowel wall thickening in the left abdomen as could be seen with enteritis, also appearance of gastric wall thickening as could be seen with gastritis. 2. There is emphysema. 3. There is 0.7 cm calculus in the right renal pelvis without obstruction. 4. There is some gas in the urinary bladder lumen although could be due to recent instrumentation/catheterization if corresponding history. Electronically signed by: Marcelo White MD (05/25/2018 9:51 PM) [facility] Course & Med Decision Making Course & Med Decision Making Pertinent Labs and Imaging studies reviewed. (See chart for details) Patient presents with report of elevated WBC and lower abdominal pain with history of recent exploratory laparotomy and colectomy. Labs obtained and posted to chart. Patient mets SIRS criteria. Lactic acid elevated. Presumed abdominal infection given recent history. Empiric antibiotics given. IVF bolusing provided. Hyponatremia and acute renal insufficiency noted. Lipase also elevated consistent for pancreatitis.. CT abd/pelvis without obstruction however noted some small bowel thickening polssibley due to enteritis. Patient requiring admission for further evaluation and treatment. Discussed with Dr. Jesus (sending provider) who is in agreement with admit. Discussed case with Dr. Gomez (covering for Tk (general surgery) who is in agreement with consultation. Discussed findings and plan with patient, who acknowledges understanding and agreement. Dragon Disclaimer Dragon Disclaimer This electronic medical record was generated, in whole or in part, using a voice recognition dictation system. Departure Departure Impression: Primary Impression: Severe sepsis Additional Impressions: Hyponatremia Pancreatitis Acute renal insufficiency Hyperglycemia Hyperkalemia Disposition: ADMITTED INPATIENT (med/tele) Admitting Physician: Matt Jesus Condition: GUARDED Referrals: CARISSA OVALLE MD (PCP) Critical Care Time Critical care time was 30 minutes which includes time at bedside, spent in discussion of patient's care with specialists and/or family members, with interpretation of laboratory and/or radiological studies and is exclusive of procedures. Problem Qualifiers Additional Impressions: Pancreatitis Chronicity: acute Pancreatitis type: unspecified pancreatitis type Acute pancreatitis complication: unspecified Qualified Codes: K85.90 - Acute pancreatitis without necrosis or infection, unspecified RIKY ALBRIGHT DO May 25, 2018 23:33
[2018-05-26] VITALS (15 sets, daily range): BP systolic 90–124; BP diastolic 50–83
[2018-05-26] MEDS ORDERED: DEXTROSE 50% 25 GM / 50ML DISP.SYRIN. IV PRN (00:15)
[2018-05-26] MEDS ORDERED: fentaNYL PF VIAL 100 MCG/2 ML VIAL IV PRN (00:15)
[2018-05-26] MEDS ORDERED: ONDANSETRON PF 4 MG/2 ML VIAL. IV PRN (00:15)
[2018-05-26] MEDS: VANCOMYCIN PER PHARMACY MC PRN ×3 (03:06→16:39)
--- NOTE | 2018-05-26 03:06 | NUR ---
Pharmacy Vancomycin Dosing Note S:Consulted to monitor and dose vancomycin started 05/25/18. O:EDITH SELBY is a 82 year old M with Sepsis . Height: 5 feet, 10 inches Weight: 56.417601 kg [place] Body Weight: 73.00 Adjusted Body Weight: 66.52 Dosing Weight: Actual Other Antibiotics: LABS: Last BUN: 44 Last Creatinine: 1.5 Creatinine Clearance: 32 mL/min Last WBC: 15 Last Procalcitonin: Tmax (past 24 hours): Microbiology: I/O: Drug Levels: Last level: on at Last dose given 05/25/18 at 2230 Vancomycin Dosing: Loading Dose: 1500 mg x1 Dosing Weight: Actual Target Trough: 15-20 A: Based on: WT AND CRCL P: 1. Begin Vancomycin 1000 mg IV q24h 2. Follow up Trough level on 05/27/18 at 2130 3. Pharmacy will continue to monitor, follow and adjust therapy as needed. VIRGINIA CULLEN RPH, 05/26/18305 Signed: 05/26/18 at 0306 by VIRGINIA CULLEN RPH PHA Signed: 05/26/18 at 0306 by VIRGINIA CULLEN RPH PHA
[2018-05-26] MEDS ORDERED: C.DIFF MED SCREEN BY RX. MC ONE (03:30)
[2018-05-26] MEDS ORDERED: ALBU2.5V8 INH (04:22)
[2018-05-26] MEDS ORDERED: MULT1TAB52 PO (04:22)
[2018-05-26] MEDS ORDERED: MAGN400T3 PO (04:22)
[2018-05-26] MEDS ORDERED: INSU100I13 SQ (04:22)
--- NOTE | 2018-05-26 04:23 | NUR ---
Patient admitted to room 108 from ER. Patient moved self from cart to bed with stand-by assist. Monitor on, ST with PACs noted. Other VSS. RA. Ostomy noted to right upper quad of ABD, stoma red and moist. Appromiated midline abd incision [employer], no drainage noted. Patient denies pain or discomfort at this time. Call light is within reach. Will monitor.
--- NOTE | 2018-05-26 07:08 | EKG ---
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 Electronically Signed On 05-27-2018 11:30:46 SOFTWARE APPLICATIONS ARCHITECT by Ronald Lees MD
[2018-05-26] MEDS: INSULIN LISPRO 300 UNITS/3 ML INSULN.PEN. SQ SCH ×3 (08:00→17:00)
--- NOTE | 2018-05-26 08:46 | PDOC2 ---
CONSULT Date of Consult Date of Consult DATE: 05/26/18 TIME: 08:41 Reason for Consult Reason for Consult: abd pain Referring Physician Referring Physician: Alban Identification/Chief Complaint Chief Complaint abd pain Source Source: Chart review, Patient History of Present Illness Reason for Visit: 82 yo M s/p xlap and colon resection for extensive diverticulitis. Noted to have abd pain and admitted through ER with multiple electrolyte abnormalities. This Am, notes some pain, but improved. Some mild confusion (noted on previous hospitalization), but pleasant. Past Medical History Cardiovascular: CAD, HTN, Hyperlipidemia Pulmonary: COPD CENTRAL NERVOUS SYSTEM: Other Musculoskeletal: Osteoarthritis Renal/: Benign prostatic enlarg. Endocrine: Diabetes Past Surgical History Past Surgical History: Cholecystectomy, Hernia Repair, Other Family History Family History: No Significant, High Cholestrol Social History Quit ALCOHOL: rare Drugs: None Lives: with Family Current Problem List Problem List Problems Medical Problems: (1) Hyperglycemia Status: Acute (2) Hyperkalemia Status: Acute (3) Severe sepsis Status: Acute Current Medications Current Medications Current Medications Fentanyl Citrate (Fentanyl 2ml Vial) 50 mcg 1X ONCE IV Last administered on 05/25/18at 20:01; Start 05/25/18 at 19:45; Stop 05/25/18 at 19:46; Status DC Ondansetron HCl (Zofran) 4 mg 1X ONCE IV Last administered on 05/25/18 20:01; Start 05/25/18 at 19:45; Stop 05/25/18 at 19:46; Status DC Famotidine (Pepcid Vial) 20 mg 1X ONCE IVP Last administered on 05/25/18 20:00 ; Start 05/25/18 at 19:45; Stop 05/25/18 at 19:46; Status DC Sodium Chloride 1,000 ml @ 1,000 mls/hr 1X ONCE IV Last administered on at 20:00; Start 05/25/18 at 19:45; Stop 05/25/18 at 20:44; Status DC Sodium Chloride 1,000 ml @ 1,000 mls/hr 1X ONCE IV Last administered on at 21:40; Start 05/25/18 at 21:15; Stop 05/25/18 at 22:14; Status DC Sodium Chloride 500 ml @ 500 mls/hr 1X ONCE IV ; Start 05/25/18 at 21:15; Stop 05/25/18 at 21:15; Status DC Piperacillin Sod/ Tazobactam Sod 3.375 gm/Sodium Chloride 50 ml @ 100 mls/hr 1X ONCE IV Last administered on 05/25/18at 21:40; Start 05/25/18 at 21:15; Stop 05/25/18 at 21:44; Status DC Insulin Human Regular (HumuLIN R VIAL) 10 unit 1X ONCE IV ; Start 05/25/18 at 21 :15; Stop 05/25/18 at 21:16; Status DC Vancomycin HCl 1.5 gm/Sodium Chloride 500 ml @ 250 mls/hr 1X ONCE IV Last administered on 05/25/18at 22:32; Start 05/25/18 at 21:15; Stop 05/25/18 at 23:14; Status DC Vancomycin HCl (Vanco Per Pharmacy) 1 each PRN DAILY PRN MC SEE COMMENTS Last administered on 05/26/18at 03:06; Start 05/25/18 at 21:30 Insulin Human Regular (HumuLIN R VIAL) 5 unit 1X ONCE IV Last administered on 05/25/18at 21:40; Start 05/25/18 at 22:45; Stop 05/25/18 at 22:46; Status DC Ondansetron HCl (Zofran) 4 mg PRN Q8HRS PRN IV NAUSEA/VOMITING 1ST CHOICE; Start 05/26/18 at 00:15; Stop 05/27/18 at 00:14 Fentanyl Citrate (Fentanyl 2ml Vial) 50 mcg PRN Q2HRS PRN IV SEVERE PAIN; Start 05/26/18 at 00:15; Stop 05/27/18 at 00:14 Insulin Human Lispro (HumaLOG) 0-5 UNITS TIDWMEALS SQ ; Start 05/26/18 at 08:00 Dextrose (Dextrose 50%-Water Syringe) 12.5 gm PRN Q15MIN PRN IV SEE COMMENTS; Start 05/26/18 at 00:15 Vancomycin HCl 1 gm/Sodium Chloride 250 ml @ 250 mls/hr Q24H IV ; Start at 22:00 Vancomycin HCl (Vancomycin Trough Level) 1 each 1X ONCE MC ; Start 05/27/18 at 21:30; Stop 05/27/18 at 21:31 Pharmacy Consult (C.diff Med Screen By Rx) 1 each 1X ONCE MC ; Start 05/26/18 at 03:30; Stop 05/26/18 at 03:31; Status DC Active Scripts Active Hydrocodone-Apap 5-325 (Hydrocodone Bit/Acetaminophen) 1 Tab Tablet 1 Tab PO PRN Q4HRS PRN MDD 1 Cefdinir 300 Mg Capsule 300 Mg PO BID MDD 1 10 Days Cipro (Ciprofloxacin Hcl) 500 Mg Tablet 1 Tab PO BID 14 Days Biotene Moisturizing Mouth (Saliva Stimulant Agents Comb.3) 44.3 Ml [place]anger 2 [place]anger PO PRN Q15MIN PRN 30 Days Culturelle (Lactobacillus Rhamnosus Gg) 1 Each Cap.sprink 1 Cap PO BID 28 Days Lipitor (Atorvastatin Calcium) 40 Mg Tablet 1 Tab PO QHS Aspirin Ec (Aspirin) 81 Mg Tablet.dr 81 Mg PO DAILYWBKFT Brilinta (Ticagrelor) 90 Mg Tablet 90 Mg PO BID Reported Proair Hfa Inhaler (Albuterol Sulfate) 8.5 Gm Hfa.aer.ad 2 Puff INH PRN Q6HRS PRN Multivitamins (Multivitamin) 1 Each Tablet 1 Tab PO DAILY Magnesium Oxide 400 Mg Tablet 1 Tab PO DAILY Lantus Solostar (Insulin Glargine,Hum.rec.anlog) 100 Unit/1 Ml Insuln.pen 10 Unit SQ QHS Metformin Hcl 500 Mg Tablet 500 Mg PO BIDWMEALS Soma (Carisoprodol) 350 Mg Tablet 1 Tab PO BID Omeprazole 40 Mg Capsule.dr 1 Cap PO DAILY Symbicort 80-4.5 Mcg Inhaler (Budesonide/Formoterol Fumarate) 10.2 Gm Hfa.aer.ad 1 Puff IH BID Amaryl (Glimepiride) 4 Mg Tablet 1 Tab PO DAILY Amlodipine Besylate 5 Mg Tablet 5 Mg PO DAILY Carvedilol (Carvedilol) 12.5 Mg Tablet 1 Tab PO BID Vitamin D3 (Cholecalciferol (Vitamin D3)) 1,000 Unit Tablet 2,000 Tab PO DAILY Allergies Allergies: Coded Allergies: latex (Verified Allergy, Intermediate, rash/blisters, , 01/21/18) ROS Gastrointestinal: Yes Abdominal Pain Physical Exam General: Alert, Cooperative, No acute distress HEENT: Atraumatic Lungs: Normal air movement Abdomen: Soft, Other (min BLQ TTP, incision well healed, ostomy fxn) Extremities: No clubbing, No cyanosis Skin: No rashes, No breakdown Neuro: Normal speech, Sensation intact Psych/Mental Status: Mood NL Vitals VITALS Vital Signs Date Time Temp Pulse Resp B/P (MAP) Pulse Ox O2 Delivery O2 Flow Rate FiO2 05/26/18 03:00 104 16 105/66 (79) 97 Room Air 05/26/18 02:30 97.2 97.2 Labs Labs Laboratory Tests Test 05/25/18 19:20 05/25/18 21:20 05/25/18 21:45 05/26/18 03:30 White Blood Count 15.0 x10^3/uL (4.0-11.0) Red Blood Count 3.77 x10^6/uL (4.30-5.70) Hemoglobin 11.1 g/dL (13.0-17.5) Hematocrit 33.3 % (39.0-53.0) Mean Corpuscular Volume 88 fL (79-100) Mean Corpuscular Hemoglobin 29 pg (25-35) Mean Corpuscular Hemoglobin Concent 33 g/dL (31-37) Red Cell Distribution Width 15.6 % (11.5-14.5) Platelet Count 875 x10^3/uL (140-400) Neutrophils (%) (Auto) 75 % (31-73) Lymphocytes (%) (Auto) 14 % (24-48) Monocytes (%) (Auto) 9 % (0-9) Eosinophils (%) (Auto) 2 % (0-3) Basophils (%) (Auto) 1 % (0-3) Neutrophils # (Auto) 11.2 x10^3uL (1.8-7.7) Lymphocytes # (Auto) 2.0 x10^3/uL (1.0-4.8) Monocytes # (Auto) 1.3 x10^3/uL (0.0-1.1) Eosinophils # (Auto) 0.2 x10^3/uL (0.0-0.7) Basophils # (Auto) 0.2 x10^3/uL (0.0-0.2) Platelet Estimate Increased (ADEQUATE) Large Platelets Occ Giant Platelets Occ Prothrombin Time 14.1 SEC (11.7-14.0) Prothromb Time International Ratio 1.1 (0.8-1.1) Activated Partial Thromboplast Time 30 SEC (24-38) Sodium Level 129 mmol/L (136-145) Potassium Level 5.5 mmol/L (3.5-5.1) Chloride Level 94 mmol/L (98-107) Carbon Dioxide Level 23 mmol/L (21-32) Anion Gap 12 (6-14) Blood Urea Nitrogen 44 mg/dL (8-26) Creatinine 1.5 mg/dL (0.7-1.3) Estimated GFR (Cockcroft-Gault) 44.9 BUN/Creatinine Ratio 29 (6-20) Glucose Level 358 mg/dL (70-99) Lactic Acid Level 4.0 mmol/L (0.4-2.0) 2.5 mmol/L (0.4-2.0) Calcium Level 9.2 mg/dL (8.5-10.1) Total Bilirubin 0.2 mg/dL (0.2-1.0) Aspartate Amino Transf (AST/SGOT) 129 U/L (15-37) Alanine Aminotransferase (ALT/SGPT) 151 U/L (16-63) Alkaline Phosphatase 154 U/L (46-116) Creatine Kinase 34 U/L (39-308) Creatine Kinase MB (Mass) 1.4 ng/mL (0.0-3.6) Creatine Kinase MB Relative Index % (0-4) Troponin I Quantitative < 0.017 ng/mL (0.000-0.055) 0.022 ng/mL (0.000-0.055) Total Protein 7.9 g/dL (6.4-8.2) Albumin 2.8 g/dL (3.4-5.0) Albumin/Globulin Ratio 0.5 (1.0-1.7) Lipase 1056 U/L (73-393) Urine Collection Type Unknown Urine Color Yellow Urine Clarity Clear Urine pH 5.0 Urine Specific [place] 1.025 Urine Protein Negative mg/dL (NEG-TRACE) Urine Glucose (UA) >=1000 mg/dL (NEG) Urine Ketones (Stick) Negative mg/dL (NEG) Urine Blood Negative (NEG) Urine Nitrite Negative (NEG) Urine Bilirubin Negative (NEG) Urine Urobilinogen Dipstick 0.2 mg/dL (0.2 mg/dL) Urine Leukocyte Esterase Negative (NEG) Urine RBC 0 /HPF (0-2) Urine WBC Occ /HPF (0-4) Urine Squamous Epithelial Cells Few /LPF Urine Bacteria 0 /HPF (0-FEW) Urine Hyaline Casts Moderate /HPF Urine Mucus Marked /LPF Glucose (Fingerstick) 201 mg/dL (70-99) Test 05/26/18 06:05 05/26/18 07:41 Troponin I Quantitative 0.019 ng/mL (0.000-0.055) Glucose (Fingerstick) 133 mg/dL (70-99) Laboratory Tests Test 05/25/18 19:20 05/25/18 21:20 05/25/18 21:45 05/26/18 03:30 White Blood Count 15.0 x10^3/uL (4.0-11.0) Red Blood Count 3.77 x10^6/uL (4.30-5.70) Hemoglobin 11.1 g/dL (13.0-17.5) Hematocrit 33.3 % (39.0-53.0) Mean Corpuscular Volume 88 fL (79-100) Mean Corpuscular Hemoglobin 29 pg (25-35) Mean Corpuscular Hemoglobin Concent 33 g/dL (31-37) Red Cell Distribution Width 15.6 % (11.5-14.5) Platelet Count 875 x10^3/uL (140-400) Neutrophils (%) (Auto) 75 % (31-73) Lymphocytes (%) (Auto) 14 % (24-48) Monocytes (%) (Auto) 9 % (0-9) Eosinophils (%) (Auto) 2 % (0-3) Basophils (%) (Auto) 1 % (0-3) Neutrophils # (Auto) 11.2 x10^3uL (1.8-7.7) Lymphocytes # (Auto) 2.0 x10^3/uL (1.0-4.8) Monocytes # (Auto) 1.3 x10^3/uL (0.0-1.1) Eosinophils # (Auto) 0.2 x10^3/uL (0.0-0.7) Basophils # (Auto) 0.2 x10^3/uL (0.0-0.2) Platelet Estimate Increased (ADEQUATE) Large Platelets Occ Giant Platelets Occ Prothrombin Time 14.1 SEC (11.7-14.0) Prothromb Time International Ratio 1.1 (0.8-1.1) Activated Partial Thromboplast Time 30 SEC (24-38) Sodium Level 129 mmol/L (136-145) Potassium Level 5.5 mmol/L (3.5-5.1) Chloride Level 94 mmol/L (98-107) Carbon Dioxide Level 23 mmol/L (21-32) Anion Gap 12 (6-14) Blood Urea Nitrogen 44 mg/dL (8-26) Creatinine 1.5 mg/dL (0.7-1.3) Estimated GFR (Cockcroft-Gault) 44.9 BUN/Creatinine Ratio 29 (6-20) Glucose Level 358 mg/dL (70-99) Lactic Acid Level 4.0 mmol/L (0.4-2.0) 2.5 mmol/L (0.4-2.0) Calcium Level 9.2 mg/dL (8.5-10.1) Total Bilirubin 0.2 mg/dL (0.2-1.0) Aspartate Amino Transf (AST/SGOT) 129 U/L (15-37) Alanine Aminotransferase (ALT/SGPT) 151 U/L (16-63) Alkaline Phosphatase 154 U/L (46-116) Creatine Kinase 34 U/L (39-308) Creatine Kinase MB (Mass) 1.4 ng/mL (0.0-3.6) Creatine Kinase MB Relative Index % (0-4) Troponin I Quantitative < 0.017 ng/mL (0.000-0.055) 0.022 ng/mL (0.000-0.055) Total Protein 7.9 g/dL (6.4-8.2) Albumin 2.8 g/dL (3.4-5.0) Albumin/Globulin Ratio 0.5 (1.0-1.7) Lipase 1056 U/L (73-393) Urine Collection Type Unknown Urine Color Yellow Urine Clarity Clear Urine pH 5.0 Urine Specific [place] 1.025 Urine Protein Negative mg/dL (NEG-TRACE) Urine Glucose (UA) >=1000 mg/dL (NEG) Urine Ketones (Stick) Negative mg/dL (NEG) Urine Blood Negative (NEG) Urine Nitrite Negative (NEG) Urine Bilirubin Negative (NEG) Urine Urobilinogen Dipstick 0.2 mg/dL (0.2 mg/dL) Urine Leukocyte Esterase Negative (NEG) Urine RBC 0 /HPF (0-2) Urine WBC Occ /HPF (0-4) Urine Squamous Epithelial Cells Few /LPF Urine Bacteria 0 /HPF (0-FEW) Urine Hyaline Casts Moderate /HPF Urine Mucus Marked /LPF Glucose (Fingerstick) 201 mg/dL (70-99) Test 05/26/18 06:05 05/26/18 07:41 Troponin I Quantitative 0.019 ng/mL (0.000-0.055) Glucose (Fingerstick) 133 mg/dL (70-99) Images Images Pneumoperitoneum, suspect post operative, some bowel wall distention, kidney stone, non obstructing Assessment/Plan Assessment/Plan Dehydration, favor enteritis. Agree with admission and rehydration. monitor abd exam, but should be self limiting. Thanks for consult! LUIZA JOHNSON MD May 26, 2018 08:46
[2018-05-26] MEDS ORDERED: IV NORMAL SALINE 1000ML BAG 1,000 ML IV ONE ×2 (11:45)
[2018-05-26 11:52] LABS: BASO # 0.1 x10^3/uL (0.0-0.2); BASO % 1 % (0-3); EOS # 0.4 x10^3/uL (0.0-0.7); EOS % 3 % (0-3); HEMATOCRIT 30.9 % (39.0-53.0); HEMOGLOBIN 9.9 g/dL (13.0-17.5); LYMPH # 1.7 x10^3/uL (1.0-4.8); LYMPH % 15 % (24-48); MEAN CORPUSCULAR HEMOGLOBIN 28 pg (25-35); MEAN CORPUSCULAR HGB CONC 32 g/dL (31-37); MEAN CORPUSCULAR VOLUME 87 fL (79-100); MONO % 9 % (0-9); NEUT # 8.2 x10^3uL (1.8-7.7); NEUT % 72 % (31-73); PLATELET COUNT 716 x10^3/uL (140-400); RED BLOOD COUNT 3.54 x10^6/uL (4.30-5.70); RED CELL DISTRIBUTION WIDTH 15.5 % (11.5-14.5); WHITE BLOOD COUNT 11.4 x10^3/uL (4.0-11.0)
[2018-05-26 12:01] LABS: CALCIUM 8.3 mg/dL (8.5-10.1); CREATININE 0.9 mg/dL (0.7-1.3)
[2018-05-26 12:06] LABS: ALBUMIN 2.2 g/dL (3.4-5.0); ALBUMIN/GLOBULIN RATIO 0.5 (1.0-1.7); TOTAL BILIRUBIN 0.3 mg/dL (0.2-1.0); TOTAL PROTEIN 6.4 g/dL (6.4-8.2)
[2018-05-26 12:07] LABS: POTASSIUM 4.2 mmol/L (3.5-5.1)
--- NOTE | 2018-05-26 12:53 | HP ---
ADMIT DATE: 05/25/2018 HISTORY OF PRESENT ILLNESS: The patient is an 82-year-old male patient, a resident at [facility] who was noted by the nursing staff to be not generally feeling well. He has had lab work, which showed that he has marked leukocytosis with a white cell count of 19,000. He also was noted to be dehydrated. His BUN and creatinine have dramatically risen compared to previous lab work and I did recommend that the patient should be transferred to the Emergency Room where he was evaluated. He was noted to have hyponatremia, hyperkalemia, acute kidney injury. He has marked leukocytosis. He has also lactic acidosis, was admitted with sepsis. He was investigated in the Emergency Room and had a CT scan of the abdomen and pelvis, which showed that the patient has pneumoperitoneum with a new finding of right ileostomy and a right hemicolectomy. No discrete extraluminal fluid collection identified other than mild dependent hemorrhage in the left pelvis. There was no evidence of bowel obstruction; however, there may be small bowel wall thickening in the left abdomen and could be due to enteritis, also appearance of the gastric wall thickening that could be seen with gastritis. He has emphysema. He has a nonobstructing 0.7 cm calculus in the right renal pelvis and there is some gas in the urinary bladder lumen, although could be due to recent instrumentation. The patient was admitted and was given IV fluid as per sepsis protocol was started on IV vancomycin and Zosyn and was given also insulin. The blood sugar was elevated and was admitted to ICU. We did consult the surgical team for evaluation and also the Infectious Disease specialist. PAST MEDICAL HISTORY: Significant for coronary artery disease, chronic obstructive pulmonary disease, type 2 diabetes, hypercholesterolemia, hyperlipidemia. He is also known to have benign prostatic hypertrophy. He was also diagnosed with an abdominal abscess and apparently initially treated with drainage and eventually he underwent laparoscopic turned to be open laparotomy with sigmoid resection and loop ileostomy and he did well and was at [facility]. PAST SURGICAL HISTORY: Significant for PCI with stent deployment, has had also cholecystectomy, hernia repair, transurethral resection of the prostate and most recently exploratory laparotomy and he underwent laparoscopic converted to open sigmoid resection with loop ileostomy, ileocolic resection, extensive lysis of adhesions, drainage of an abscess, rigid sigmoidoscopy, biopsy of small bowel mass, removal of previous drains. ALLERGIES: HE IS ALLERGIC TO LATEX. MEDICATIONS: He is currently on following medications: He is on albuterol sulfate 2 puffs every 6 hours, Soma 350 mg twice a day, Brilinta 90 mg twice a day, atorvastatin calcium, Lipitor 40 mg at bedtime, carvedilol 12.5 mg twice a day, amlodipine 5 mg daily, aspirin 81 mg once a day, Symbicort 80/4.5 mcg inhaler twice a day, hydrocodone/APAP 5/325 one tablet every 4 hours, magnesium oxide 400 mg daily, omeprazole 40 mg daily, Lactobacillus rhamnosus 1 capsule twice a day. He is on metformin 500 mg with meals. He was on Lantus insulin 10 units at bedtime, glimepiride 4 mg tablet daily, cholecalciferol 2000 International Units once a day, multivitamin 1 tablet once a day, saliva stimulant agent, Biotene moisturizing mouth 2 sprays p.o. p.r.n. q. 15 minutes. REVIEW OF SYSTEMS: As per history of present illness. PHYSICAL EXAMINATION: GENERAL: On arrival to the Emergency Room, the patient looked pale, cachectic, but not jaundiced, cyanosed. No thyromegaly. No jugular venous distension. No lower limb edema. VITAL SIGNS: His heart rate was 132, blood pressure was 130/76, temperature was 98.8, respiratory rate was 18 and oxygen saturation was 98%. HEAD, EYES, EARS, NOSE, THROAT: Showed normocephalic, atraumatic. NECK: Supple. HEART: Showed normal first and second heart sounds. No gallop, rub or murmur. CHEST: Clear to auscultation. No crepitation or rhonchi. ABDOMEN: Scaphoid, soft with an ileostomy in the right lower quadrant. The midline surgical incision is healing nicely with no redness, tenderness or discharge. There is no guarding or rigidity. No organomegaly. All hernial orifices intact. Bowel sounds normal. NEUROLOGIC: He was confused, but otherwise all his cranial nerves are intact. EXTREMITIES: He moves extremities without difficulty. LABORATORY DATA: Showed a white cell count 15,000; hemoglobin 11; hematocrit 33; MCV 88, and platelet count of 875,000. His chemistry showed a serum sodium of 129, potassium 5.5, chloride 94, bicarbonate 23, anion gap of 12, BUN 44, creatinine 1.5, estimated GFR was 44 mL per minute. His glucose was 358. Calcium was 9.2. Total bilirubin is 0.2. AST, ALT, alkaline phosphatase slightly elevated. His total protein was 7.9, albumin was 2.8. Lipase was 1056. His prothrombin time was 14.1, INR 1.1, APTT was 30. Urinalysis showed the urine was yellow, clear with a pH of 5, specific gravity 1.025. The urine was negative for protein; there was large amount of glucose; negative for ketones, blood, nitrite and leukocyte esterase; 0 rbc's; 0 wbc's; and no bacteria. His CT scan of the abdomen and pelvis showed that there is a pneumoperitoneum. There is a right abdominal ileostomy and right hemicolectomy. There is a mild dependent hemorrhage in the left pelvis, although difficult to distinguish from adjacent bowel. Small bowel is not significantly dilated, although there is appearance of wall thickening of small bowel, left abdomen. There is also appearance of gastric wall thickening. There is again a mild fullness of the left adrenal gland. There is no hydronephrosis of either side. There is a 0.7 cm calculus in the right renal pelvis as seen previously. No new obvious focal abnormality identified of the liver, spleen, pancreas, allowing for noncontrast technique. There is atherosclerotic calcification of the abdominal aorta. There is some gas in the urinary bladder lumen, mild distention. There is emphysema in the visualized lung bases. ASSESSMENT AND PLAN: The patient was admitted to the ICU with sepsis, hyponatremia, hyperkalemia, acute kidney injury, acute pancreatitis and transaminitis. He was given at least 2 liters of fluid. He is started on IV vancomycin and Zosyn. I will consult the surgical team, the Infectious Disease as well as the shipfitter as he has transaminitis and acute pancreatitis. CARL HENDERSON MD DR: BRITTNY/gloria JOB#: [id number] / [id number]
--- NOTE | 2018-05-26 15:20 | PDOC2 ---
GI CONSULT Reason For Consult: Acute pancreatitis HPI: HPI: 82 y/o male sent from rehab to ER yesterday w/ leukocytosis. Labs here noted multiple abnormalities including elevated LFTs and lipase. Imaging noted pneumoperitoneum (likely post-op) and possible SB wall thickening and gastric wall thickening. We saw him last month for abdominal abscess, received drain placement. Then on 05/15/18 for perforated diverticulitis and abscess, had open sigmoid resection w / loop ileostomy, ileocolic resection, LIAM, drainage of abscess, small bowel mass biopsy (negative for malignancy), and drain removal w/ Dr. Frey. He tells me he feels fine today. Has some soreness around ostomy and is tolerating clears. Per past GI consult, h/o GERD on PPI. Previous EGDs and colonoscopies w/ Dr. Womack. S/p cholecystectomy (though doesn't remember that today). Denies liver or pancreas history. Bili has always been normal but AST, ALT, and Alk Phos have been elevated in the past. CT on 04/26 noted right hepatic lobe lesion. CEA was 8.5 in 04/2017. PMH: PMH: CAD, HTN, HLD, COPD, OA, BPH, DM, skin cancer, GERD diverticulosis cardiac stent, cholecystectomy, left inguinal hernia repair, skin cancer removal , TURP, left shoulder surgery, and per HPI FH: Family History: No pertinent hx Social History: Smoke: Quit ALCOHOL: rare Drugs: None ROS: GEN: Denies fevers, chills, sweats HEENT: Denies blurred vision, sore throat CV: Denies chest pain RESP: Denies shortness of air, cough GI: Per HPI : Denies hematuria, dysuria ENDO: Denies weight changes NEURO: Denies confusion, dizziness MSK: Denies weakness, joint pain/swelling SKIN: Denies jaundice, pruritus Vitals: Vitals: Vital Signs Date Time Temp Pulse Resp B/P (MAP) Pulse Ox O2 Delivery O2 Flow Rate FiO2 05/26/18 13:00 126 20 108/50 (69) 94 Room Air 05/26/18 12:00 98.2 98.2 Labs: Labs: Laboratory Tests Test 05/25/18 19:20 05/25/18 21:20 05/25/18 21:45 3/6/19 03:30 White Blood Count 15.0 x10^3/uL (4.0-11.0) Red Blood Count 3.77 x10^6/uL (4.30-5.70) Hemoglobin 11.1 g/dL (13.0-17.5) Hematocrit 33.3 % (39.0-53.0) Mean Corpuscular Volume 88 fL (79-100) Mean Corpuscular Hemoglobin 29 pg (25-35) Mean Corpuscular Hemoglobin Concent 33 g/dL (31-37) Red Cell Distribution Width 15.6 % (11.5-14.5) Platelet Count 875 x10^3/uL (140-400) Neutrophils (%) (Auto) 75 % (31-73) Lymphocytes (%) (Auto) 14 % (24-48) Monocytes (%) (Auto) 9 % (0-9) Eosinophils (%) (Auto) 2 % (0-3) Basophils (%) (Auto) 1 % (0-3) Neutrophils # (Auto) 11.2 x10^3uL (1.8-7.7) Lymphocytes # (Auto) 2.0 x10^3/uL (1.0-4.8) Monocytes # (Auto) 1.3 x10^3/uL (0.0-1.1) Eosinophils # (Auto) 0.2 x10^3/uL (0.0-0.7) Basophils # (Auto) 0.2 x10^3/uL (0.0-0.2) Platelet Estimate Increased (ADEQUATE) Large Platelets Occ Giant Platelets Occ Prothrombin Time 14.1 SEC (11.7-14.0) Prothromb Time International Ratio 1.1 (0.8-1.1) Activated Partial Thromboplast Time 30 SEC (24-38) Sodium Level 129 mmol/L (136-145) Potassium Level 5.5 mmol/L (3.5-5.1) Chloride Level 94 mmol/L (98-107) Carbon Dioxide Level 23 mmol/L (21-32) Anion Gap 12 (6-14) Blood Urea Nitrogen 44 mg/dL (8-26) Creatinine 1.5 mg/dL (0.7-1.3) Estimated GFR (Cockcroft-Gault) 44.9 BUN/Creatinine Ratio 29 (6-20) Glucose Level 358 mg/dL (70-99) Lactic Acid Level 4.0 mmol/L (0.4-2.0) 2.5 mmol/L (0.4-2.0) Calcium Level 9.2 mg/dL (8.5-10.1) Total Bilirubin 0.2 mg/dL (0.2-1.0) Aspartate Amino Transf (AST/SGOT) 129 U/L (15-37) Alanine Aminotransferase (ALT/SGPT) 151 U/L (16-63) Alkaline Phosphatase 154 U/L (46-116) Creatine Kinase 34 U/L (39-308) Creatine Kinase MB (Mass) 1.4 ng/mL (0.0-3.6) Creatine Kinase MB Relative Index % (0-4) Troponin I Quantitative < 0.017 ng/mL (0.000-0.055) 0.022 ng/mL (0.000-0.055) Total Protein 7.9 g/dL (6.4-8.2) Albumin 2.8 g/dL (3.4-5.0) Albumin/Globulin Ratio 0.5 (1.0-1.7) Lipase 1056 U/L (73-393) Urine Collection Type Unknown Urine Color Yellow Urine Clarity Clear Urine pH 5.0 Urine Specific [place] 1.025 Urine Protein Negative mg/dL (NEG-TRACE) Urine Glucose (UA) >=1000 mg/dL (NEG) Urine Ketones (Stick) Negative mg/dL (NEG) Urine Blood Negative (NEG) Urine Nitrite Negative (NEG) Urine Bilirubin Negative (NEG) Urine Urobilinogen Dipstick 0.2 mg/dL (0.2 mg/dL) Urine Leukocyte Esterase Negative (NEG) Urine RBC 0 /HPF (0-2) Urine WBC Occ /HPF (0-4) Urine Squamous Epithelial Cells Few /LPF Urine Bacteria 0 /HPF (0-FEW) Urine Hyaline Casts Moderate /HPF Urine Mucus Marked /LPF Glucose (Fingerstick) 201 mg/dL (70-99) Test 05/26/18 06:05 05/26/18 07:41 05/26/18 11:30 Troponin I Quantitative 0.019 ng/mL (0.000-0.055) Glucose (Fingerstick) 133 mg/dL (70-99) White Blood Count 11.4 x10^3/uL (4.0-11.0) Red Blood Count 3.54 x10^6/uL (4.30-5.70) Hemoglobin 9.9 g/dL (13.0-17.5) Hematocrit 30.9 % (39.0-53.0) Mean Corpuscular Volume 87 fL (79-100) Mean Corpuscular Hemoglobin 28 pg (25-35) Mean Corpuscular Hemoglobin Concent 32 g/dL (31-37) Red Cell Distribution Width 15.5 % (11.5-14.5) Platelet Count 716 x10^3/uL (140-400) Neutrophils (%) (Auto) 72 % (31-73) Lymphocytes (%) (Auto) 15 % (24-48) Monocytes (%) (Auto) 9 % (0-9) Eosinophils (%) (Auto) 3 % (0-3) Basophils (%) (Auto) 1 % (0-3) Neutrophils # (Auto) 8.2 x10^3uL (1.8-7.7) Lymphocytes # (Auto) 1.7 x10^3/uL (1.0-4.8) Monocytes # (Auto) 1.0 x10^3/uL (0.0-1.1) Eosinophils # (Auto) 0.4 x10^3/uL (0.0-0.7) Basophils # (Auto) 0.1 x10^3/uL (0.0-0.2) Sodium Level 135 mmol/L (136-145) Potassium Level 4.2 mmol/L (3.5-5.1) Chloride Level 100 mmol/L (98-107) Carbon Dioxide Level 24 mmol/L (21-32) Anion Gap 11 (6-14) Blood Urea Nitrogen 21 mg/dL (8-26) Creatinine 0.9 mg/dL (0.7-1.3) Estimated GFR (Cockcroft-Gault) 81.0 BUN/Creatinine Ratio 23 (6-20) Glucose Level 142 mg/dL (70-99) Lactic Acid Level 1.4 mmol/L (0.4-2.0) Calcium Level 8.3 mg/dL (8.5-10.1) Total Bilirubin 0.3 mg/dL (0.2-1.0) Aspartate Amino Transf (AST/SGOT) 76 U/L (15-37) Alanine Aminotransferase (ALT/SGPT) 109 U/L (16-63) Alkaline Phosphatase 103 U/L (46-116) Total Protein 6.4 g/dL (6.4-8.2) Albumin 2.2 g/dL (3.4-5.0) Albumin/Globulin Ratio 0.5 (1.0-1.7) Lipase 452 U/L (73-393) Allergies: Coded Allergies: latex (Verified Allergy, Intermediate, rash/blisters, , 01/21/18) Medications: Current Medications Medications (Trade) Dose Ordered Sig/Annie Route PRN Reason Start Time Stop Time Status Last Admin Dose Admin Fentanyl Citrate (Fentanyl 2ml Vial) 50 mcg 1X ONCE IV 05/25/18 19:45 05/25/18 19:46 DC 05/25/18 20:01 Ondansetron HCl (Zofran) 4 mg 1X ONCE IV 05/25/18 19:45 05/25/18 19:46 DC 05/25/18 20:01 Famotidine (Pepcid Vial) 20 mg 1X ONCE IVP 05/25/18 19:45 05/25/18 19:46 DC 05/25/18 20:00 Sodium Chloride 1,000 ml @ 1,000 mls/hr 1X ONCE IV 05/25/18 19:45 05/25/18 20:44 DC 05/25/18 20:00 Sodium Chloride 1,000 ml @ 1,000 mls/hr 1X ONCE IV 05/25/18 21:15 05/25/18 22:14 DC 05/25/18 21:40 Piperacillin Sod/ Tazobactam Sod 3.375 gm/Sodium Chloride 50 ml @ 100 mls/hr 1X ONCE IV 05/25/18 21:15 05/25/18 21:44 DC 05/25/18 21:40 Vancomycin HCl 1.5 gm/Sodium Chloride 500 ml @ 250 mls/hr 1X ONCE IV 05/25/18 21:15 05/25/18 23:14 DC 05/25/18 22:32 Vancomycin HCl (Vanco Per Pharmacy) 1 each PRN DAILY PRN MC SEE COMMENTS 05/25/18 21:30 05/26/18 03:06 Insulin Human Regular (HumuLIN R VIAL) 5 unit 1X ONCE IV 05/25/18 22:45 05/25/18 22:46 DC 05/25/18 21:40 Sodium Chloride 1,000 ml @ 100 mls/hr 1X ONCE IV 05/26/18 11:45 05/26/18 21:44 05/26/18 13:08 Sodium Chloride 1,000 ml @ 1,000 mls/hr 1X ONCE IV 05/26/18 11:45 05/26/18 12:44 DC 05/26/18 11:52 Imaging: Imaging: CT A/P IMPRESSION: 1. There is pneumoperitoneum although this can be seen normally after recent surgery, now right ileostomy and interval right hemicolectomy. No discrete extraluminal fluid collection is identified other than mild dependent hemorrhage in the left pelvis. There is no evidence of bowel obstruction. However there may be small bowel wall thickening in the left abdomen as could be seen with enteritis, also appearance of gastric wall thickening as could be seen with gastritis. 2. There is emphysema. 3. There is 0.7 cm calculus in the right renal pelvis without obstruction. 4. There is some gas in the urinary bladder lumen although could be due to recent instrumentation/catheterization if corresponding history. PE: GEN: NAD HEENT: Atraumatic, PERRL LUNGS: CTAB HEART: tachycardic ABD: BS+, soft, healing midline incision, RLQ ostomy w/ dark watery stool EXTREMITY: No edema SKIN: No rashes, no jaundice NEURO/PSYCH: forgetful? A/P: A/P: Leukocytosis, lactic acidosis, DENNIS - better Abnormal CT Transaminitis, elevated lipase - improved H/o perforated diverticulitis and abscess s/p open sigmoid resection w/ loop ileostomy, ileocolic resection, LIAM, drainage of abscess Chronic anemia GERD CRC screen - past colonoscopies w/ Dr. Carole Womack S/p cholecystectomy CAD, DM -- Check RUQ US - varying history re: cholecystectomy, also h/o elevated LFTs and right hepatic lobe lesion on past CT. Add PPI, check additional labs. Will check the office for past 'scopes. EMILY KNIGHT May 26, 2018 15:20
[2018-05-26] MEDS ORDERED: PANTOPRAZOLE 40 MG TABLET.DR. PO SCH (16:00)
--- NOTE | 2018-05-26 16:00 | NUR ---
ostomy care patient has a RLQ ileostomy, known from previous admission, and this RN provided pt and 's ostomy teaching prior to d/c. Patient's ostomy bag removed at this time, the peristomal area was cleaned and patient has some peristomal separation from 1-3 o'clock, and the area has some creamy purulent drainage, this area was cleaned, a picture was taken of the stoma. A piece of Aquacel Ag rope was placed into the area. skin prep applied and stoma powder over the macerated area, an ostomy ring was applied to the area over the Aquacel Ag, a 2 piece convex ostomy bag applied over. notified Dr. Frey of the assessment. Notified MELINAD De Jesus about the POC and to page wound care if the ostomy bag needed changed. Ostomy team will continue to f/u.
--- NOTE | 2018-05-26 16:33 | RAD ---
Right upper quadrant abdominal ultrasound, 05/26/2018: HISTORY: Abnormal liver enzymes, elevated lipase level, liver lesion The gallbladder is surgically absent. There is a 1.1 cm hypoechoic lesion in the right lobe of liver. It demonstrates a thin echogenic rim. This is most likely a small cyst. No other hepatic lesion is seen. The common hepatic duct is of normal caliber. The visualized portions of the pancreas and right kidney are unremarkable. IMPRESSION: 1. Status post cholecystectomy. 2. Small right renal cyst. Electronically signed by: Yehuda Gallo MD (05/26/2018 4:31 PM) [facility]
--- NOTE | 2018-05-26 16:48 | NUR ---
Pharmacy Medication Review S: Consulted for medication review re: C.diff Risk Assessment score of 6 O: EDITH SELBY is a 82 year old with: Previous C.diff infection: No Previous hospitalization: Within 30 days Recent antibiotics: Within 30 days Use of gastric acid suppressor: No Transfer from [place]/[facility]: Yes Current antibiotic regimen: Vancomycin per pharmacy Current acid suppression regimen: pantoprazole 40mg daily A: Patient has been identified as having risk factors for C.diff infection as noted above. P: Antibiotic Regimen recommendation made: None Probiotic ordered: yes PPI changed to [id number]: Yes Gloria Marcano [facility], 05/26/18 [id number]
[2018-05-26] MEDS: LACTOBACILLUS RHAMNOSUS GG 1 CAPSULE. PO SCH (21:16)
[2018-05-26] MEDS: VANCOMYCIN 1 GM in IV NORMAL SALINE 250ML 250 ML IV SCH (21:34)
[2018-05-27] VITALS (18 sets, daily range): BP systolic 90–124; BP diastolic 52–75
[2018-05-27 06:14] LABS: HEMATOCRIT 29.1 % (39.0-53.0); HEMOGLOBIN 9.6 g/dL (13.0-17.5); RED BLOOD COUNT 3.31 x10^6/uL (4.30-5.70); RED CELL DISTRIBUTION WIDTH 16.3 % (11.5-14.5); WHITE BLOOD COUNT 8.5 x10^3/uL (4.0-11.0)
[2018-05-27 06:33] LABS: ALBUMIN 2.2 g/dL (3.4-5.0); ALBUMIN/GLOBULIN RATIO 0.6 (1.0-1.7); CREATININE 0.9 mg/dL (0.7-1.3); POTASSIUM 4.1 mmol/L (3.5-5.1); TOTAL BILIRUBIN 0.2 mg/dL (0.2-1.0); TOTAL PROTEIN 6.1 g/dL (6.4-8.2)
[2018-05-27] MEDS: INSULIN LISPRO 300 UNITS/3 ML INSULN.PEN. SQ SCH ×3 (08:04→16:45)
[2018-05-27] MEDS: FAMOTIDINE 20 MG TABLET. PO SCH (08:07)
[2018-05-27] MEDS: LACTOBACILLUS RHAMNOSUS GG 1 CAPSULE. PO SCH ×2 (08:07→21:06)
--- NOTE | 2018-05-27 08:22 | PDOC ---
Infectious Disease Note Subjective: Subjective Referring physician DR Jesus Reason for consult Antibiotic management Pt well known to our team from previous admission HPI 82 yo male recently discharged from [facility] ,co to rehab facility Last admission pt was admitted with Recurrent diverticulitis Underwent laproscopy converted to open sigmoid resection w/ loop ileostomy, ileocolic resection, extensive SAVANA (difficult), drainage of abscess, rigid sigmoidoscopy, biopsy of small bowel mass and removal of previous drain on . Recurrent abdominal abscesses s/p drain on 05/11 with growth of mixed mireya, yeast and E. coli (R quinolones, amp, cefuroxime) - h/o IR drain on 04/21 with growth of Bacteroides, E. coli (R quinolones), Klebsiella and (yeast on GS) Also underwent cystoscopy with bilateral stent placement, 05/15 DM poorly controlled Pt was readmitted yesterday from Rehab with abn lab work, leukocytosis with wbc around 19K, hyponatremia, hyperkalemia, acute kidney injury,lactic acidosis,hyperglycemia, high lipase, transaminitis. [place] [facility] [place] The patient was admitted to ICU for sepsis and was given IV fluids as per sepsis protocol was started on IV vancomycin.UA negative, last urine c/s neg from 05/17 CT scan of the abdomen and pelvis, which showed pneumoperitoneum with a new finding of right ileostomy and a right hemicolectomy. No discrete extraluminal fluid collection identified other than mild dependent hemorrhage in the left pelvis. There was no evidence of bowel obstruction; however, there may be small bowel wall thickening in the left abdomen and could be due to enteritis, also appearance of the gastric wall thickening that could be seen with gastritis. He has emphysema. He has a nonobstructing 0.7 cm calculus in the right renal pelvis and there is some gas in the urinary bladder lumen, although could be due to recent instrumentation. U/S abdomen Status post cholecystectomy.Small right renal cyst. This am pt says feels a little better ,still has some soreness around the peg tube site due to leakage. No n/v. Maintains good ostomy output. He has been passing gas. No f/c/headache/ sore throat/odynophagia/rash/sob/cough/gu symptoms. ROS neg Meds reviewed On iv vanc ALLergies Latex ROS: ROS Negative except for above. Vital Signs: Vital Signs Vital Signs Date Time Temp Pulse Resp B/P (MAP) Pulse Ox O2 Delivery O2 Flow Rate FiO2 05/27/18 06:00 101 18 108/65 (79) 95 Room Air 05/27/18 04:00 97.5 97.5 Physical Exam: PHYSICAL EXAM GENERAL: Propped up in bed, alert, NAD HEENT: Pupils equal and reactive. Oral cavity, pharynx clear, dentures, no thrush NECK: Supple, no JVD. LUNGS: Clear to auscultation, HEART: S1, S2. ABDOMEN: Mildly distended, soft, previous scar well h ealed,tender to light palpation,BS + dressing dry. ostomy bag sealed.watery green colored stool EXTREMITIES: No clubbing, cyanosis or gross edema. SKIN: Warm to touch without signs of rash. NEUROLOGIC: Alert, nonfocal and appropriate. Medications: Inpatient Meds: Current Medications Medications (Trade) Dose Ordered Sig/Annie Start Time Stop Time Status Last Admin Dose Admin Dextrose (Dextrose 50%-Water Syringe) 12.5 gm PRN Q15MIN PRN 05/26/18 00:15 Famotidine (Pepcid Vial) 20 mg 1X ONCE 05/25/18 19:45 05/25/18 19:46 DC 05/25/18 20:00 20 MG Famotidine (Pepcid) 20 mg DAILY 05/27/18 09:00 Fentanyl Citrate (Fentanyl 2ml Vial) 50 mcg PRN Q2HRS PRN 05/26/18 00:15 05/27/18 00:14 DC 05/26/18 21:33 50 MCG Insulin Human Lispro (HumaLOG) 0-5 UNITS TIDWMEALS 05/26/18 08:00 Insulin Human Regular (HumuLIN R VIAL) 5 unit 1X ONCE 05/25/18 22:45 05/25/18 22:46 DC 05/25/18 21:40 5 UNIT Lactobacillus Rhamnosus (Culturelle) 1 cap BID 05/26/18 21:00 05/26/18 21:16 1 CAP Ondansetron HCl (Zofran) 4 mg PRN Q8HRS PRN 05/26/18 00:15 05/27/18 00:14 DC Pantoprazole Sodium (Protonix) 40 mg DAILYAC 05/26/18 16:00 05/26/18 23:59 DC 05/26/18 16:19 40 MG Pharmacy Consult (C.diff Med Screen By Rx) 1 each 1X ONCE 05/26/18 03:30 05/26/18 03:31 Cancel Piperacillin Sod/ Tazobactam Sod 3.375 gm/Sodium Chloride 50 ml @ 100 mls/hr 1X ONCE 05/25/18 21:15 05/25/18 21:44 DC 05/25/18 21:40 100 MLS/HR Sodium Chloride 1,000 ml @ 1,000 mls/hr 1X ONCE 05/26/18 11:45 05/26/18 12:44 DC 05/26/18 11:52 1,000 MLS/HR Vancomycin HCl (Vanco Per Pharmacy) 1 each PRN DAILY PRN 05/25/18 21:30 05/26/18 16:39 1 EACH Vancomycin HCl (Vancomycin Trough Level) 1 each 1X ONCE 05/27/18 21:30 05/27/18 21:31 Vancomycin HCl 1.5 gm/Sodium Chloride 500 ml @ 250 mls/hr 1X ONCE 05/25/18 21:15 05/25/18 23:14 DC 05/25/18 22:32 250 MLS/HR Vancomycin HCl 1 gm/Sodium Chloride 250 ml @ 250 mls/hr Q24H 05/26/18 22:00 05/26/18 21:34 250 MLS/HR Labs: Lab Laboratory Tests Test 05/26/18 11:30 05/26/18 17:45 05/26/18 21:19 05/27/18 05:45 White Blood Count 11.4 x10^3/uL (4.0-11.0) 8.5 x10^3/uL (4.0-11.0) Red Blood Count 3.54 x10^6/uL (4.30-5.70) 3.31 x10^6/uL (4.30-5.70) Hemoglobin 9.9 g/dL (13.0-17.5) 9.6 g/dL (13.0-17.5) Hematocrit 30.9 % (39.0-53.0) 29.1 % (39.0-53.0) Mean Corpuscular Volume 87 fL (79-100) 88 fL (79-100) Mean Corpuscular Hemoglobin 28 pg (25-35) 29 pg (25-35) Mean Corpuscular Hemoglobin Concent 32 g/dL (31-37) 33 g/dL (31-37) Red Cell Distribution Width 15.5 % (11.5-14.5) 16.3 % (11.5-14.5) Platelet Count 716 x10^3/uL (140-400) 648 x10^3/uL (140-400) Neutrophils (%) (Auto) 72 % (31-73) Lymphocytes (%) (Auto) 15 % (24-48) Monocytes (%) (Auto) 9 % (0-9) Eosinophils (%) (Auto) 3 % (0-3) Basophils (%) (Auto) 1 % (0-3) Neutrophils # (Auto) 8.2 x10^3uL (1.8-7.7) Lymphocytes # (Auto) 1.7 x10^3/uL (1.0-4.8) Monocytes # (Auto) 1.0 x10^3/uL (0.0-1.1) Eosinophils # (Auto) 0.4 x10^3/uL (0.0-0.7) Basophils # (Auto) 0.1 x10^3/uL (0.0-0.2) Sodium Level 135 mmol/L (136-145) 138 mmol/L (136-145) Potassium Level 4.2 mmol/L (3.5-5.1) 4.1 mmol/L (3.5-5.1) Chloride Level 100 mmol/L (98-107) 104 mmol/L (98-107) Carbon Dioxide Level 24 mmol/L (21-32) 24 mmol/L (21-32) Anion Gap 11 (6-14) 10 (6-14) Blood Urea Nitrogen 21 mg/dL (8-26) 10 mg/dL (8-26) Creatinine 0.9 mg/dL (0.7-1.3) 0.9 mg/dL (0.7-1.3) Estimated GFR (Cockcroft-Gault) 81.0 81.0 BUN/Creatinine Ratio 23 (6-20) 11 (6-20) Glucose Level 142 mg/dL (70-99) 177 mg/dL (70-99) Lactic Acid Level 1.4 mmol/L (0.4-2.0) Calcium Level 8.3 mg/dL (8.5-10.1) 8.0 mg/dL (8.5-10.1) Total Bilirubin 0.3 mg/dL (0.2-1.0) 0.2 mg/dL (0.2-1.0) Aspartate Amino Transf (AST/SGOT) 76 U/L (15-37) 79 U/L (15-37) Alanine Aminotransferase (ALT/SGPT) 109 U/L (16-63) 108 U/L (16-63) Alkaline Phosphatase 103 U/L (46-116) 92 U/L (46-116) Total Protein 6.4 g/dL (6.4-8.2) 6.1 g/dL (6.4-8.2) Albumin 2.2 g/dL (3.4-5.0) 2.2 g/dL (3.4-5.0) Albumin/Globulin Ratio 0.5 (1.0-1.7) 0.6 (1.0-1.7) Lipase 452 U/L (73-393) 631 U/L (73-393) Glucose (Fingerstick) 149 mg/dL (70-99) 139 mg/dL (70-99) Reticulocyte Count (auto) 1.8 % (0.5-2.5) Iron Level 31 ug/dL (65-175) Total Iron Binding Capacity 279 ug/dL (250-450) Iron Saturation 11 % (15-34) Micro Micro BC done neg so far from this admission RUN DATE: 05/20/18 PAGE 1 RUN TIME: 2108 [facility] [address] [place] [address] Jonathan Sauceda M.D., Joint Cleaning Machine Operator PATIENT: EDITH SELBY ACCT: [id number] LOC: [address] [place] [address] U : [id number] AGE/SX: 82/M ROOM: 432 REG : 05/10/[address]: ANITA ALVARADO MD : [id number] BED: 1 DIS : 05/20/18 STATUS: DIS IN TLOC: SPEC #: [id number] AROLDO: 05/11/18 STATUS: COMP REQ #: [id number] RECD: 05/11/[address]: EVA YANES MD SOURCE: ABD FLUID ENTR: 05/11/[address]: LUIZA JOHNSON MD SPDESC: AUNG CASTRO MD, IRA W MD SEYMOUR, GALEN L MD ORDERED: ANAER/AEROB/GS Procedure Result ANAEROBIC-AEROBIC CULTURE Final Final report ANAEROBIC RES 1 Final Comment No anaerobic growth in 72 hours. AEROBIC CULT Final Final report AEROBIC RES 1 Final Escherichia coli 4+ AEROBIC RES 2 Final Yeast isolated. 4+ Request for further identification must be made within 1 week. AEROBIC RES 3 Final Mixed skin mireya 4+ ANTIMICROBIAL SUSCEPTIBILITY Final Comment S = Susceptible; I = Intermediate; R = Resistant P = Positive; N = Negative MICS are expressed in micrograms per mL Antibiotic RSLT#1 RSLT#2 RSLT#3 RSLT#4 Amoxicillin/Clavulanic Acid S =8 Ampicillin R =R CONTINUED ON NEXT PAGE RUN DATE: 05/20/18 PAGE 2 RUN TIME: 2108 [facility] [address] [place] [address] Jonathan Sauceda M.D., Joint Cleaning Machine Operator SPEC: [id number] PATIENT: EDITH SELBY [id number] ( Continued) Procedure Result ANTIMICROBIAL SUSCEPTIBILITY Final (continued) Cefepime S<=0.12 Ceftriaxone S<=0.25 Cefuroxime R>=64 Ciprofloxacin R>=4 Ertapenem S<=0.12 Gentamicin S<=1 Imipenem S<=0.25 Levofloxacin R>=8 Meropenem S<=0.25 Piperacillin/Tazobactam S<=4 Tetracycline S<=1 Tobramycin S<=1 Trimethoprim/Sulfa S<=20 GRAM STAIN Final Final report GRAM STAIN RES 1 Final Comment No white blood cells seen. GRAM STAIN RES 2 Final Comment Few gram negative rods. GRAM STAIN RES 3 Final Comment Few gram positive cocci GRAM STAIN RES 4 Final Comment Few gram positive rods. Performed at: [facility] [id number], [place], [place] [id number] [employer] Investigator: ALDO Bearden MD, Phone: [phone] SUSCEPTIBILITY TESTING AEROBIC Final Comment CONTINUED ON NEXT PAGE RUN DATE: 05/20/18 PAGE 3 RUN TIME: 2108 [facility] [address] [place] [address] Jonathan Sauceda M.D., Joint Cleaning Machine Operator SPEC: [id number] PATIENT: EDITH SELBY [id number] ( Continued) Procedure Result SUSCEPTIBILITY TESTING AEROBIC Final (continued) Written Authorization Received. Authorization received from CYDNEY ZHENG 05-20-2018 Logged by Chun Bowen Performed at: [facility] [address] [id number] [employer] Investigator: Jani Chavira MD, Phone: [phone] Objective: Assessment: Leucocytosis, lactic acidosis,julia 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 Recurrent abdominal abscesses s/p drain on 05/11 with growth of mixed mireya, yeast and E. coli (R quinolones, amp, cefuroxime) - h/o IR drain on 04/21 with growth of Bacteroides, E. coli (R quinolones), Klebsiella and (yeast on GS) Transaminitis with high lipase DM poorly controlled s/p cystoscopy with bilateral stent placement, 2/23.Urine c/s 05/17 neg Chronic anemia GERD S/p cholecystectomy CAD Plan: Plan of Care Cont empiric IV Vanc add zosyn for now monitor renal func Check C diff PCR f/u labs and cults d/w RN Thank you LG DUMONT MD May 27, 2018 08:22
--- NOTE | 2018-05-27 09:08 | PDOC ---
DAYNE NEWBERRY INFORMATION TECHNOLOGY ADVISOR 05/27/18 0908: SURGICAL PROGRESS NOTE Subjective resting no pain ostomy leaking issues Vital Signs Vital Signs Date Time Temp Pulse Resp B/P (MAP) Pulse Ox O2 Delivery O2 Flow Rate FiO2 05/27/18 08:00 112 22 100/73 (82) 97 Room Air 05/27/18 07:00 98.4 98.4 I&O Intake and Output 05/27/18 07:00 Intake Total 2370 ml Output Total 2025 ml Balance 345 ml Intake Oral 120 ml IV Total 2250 ml Output Urine Total 1675 ml Stool Total 350 ml General: Alert, Oriented X3, Cooperative, No acute distress Abdomen: Soft, Other (ostomy with liquid, ND) Labs Laboratory Tests Test 05/25/18 19:20 05/25/18 21:20 05/25/18 21:45 05/26/18 03:30 White Blood Count 15.0 x10^3/uL (4.0-11.0) Red Blood Count 3.77 x10^6/uL (4.30-5.70) Hemoglobin 11.1 g/dL (13.0-17.5) Hematocrit 33.3 % (39.0-53.0) Mean Corpuscular Volume 88 fL (79-100) Mean Corpuscular Hemoglobin 29 pg (25-35) Mean Corpuscular Hemoglobin Concent 33 g/dL (31-37) Red Cell Distribution Width 15.6 % (11.5-14.5) Platelet Count 875 x10^3/uL (140-400) Neutrophils (%) (Auto) 75 % (31-73) Lymphocytes (%) (Auto) 14 % (24-48) Monocytes (%) (Auto) 9 % (0-9) Eosinophils (%) (Auto) 2 % (0-3) Basophils (%) (Auto) 1 % (0-3) Neutrophils # (Auto) 11.2 x10^3uL (1.8-7.7) Lymphocytes # (Auto) 2.0 x10^3/uL (1.0-4.8) Monocytes # (Auto) 1.3 x10^3/uL (0.0-1.1) Eosinophils # (Auto) 0.2 x10^3/uL (0.0-0.7) Basophils # (Auto) 0.2 x10^3/uL (0.0-0.2) Platelet Estimate Increased (ADEQUATE) Large Platelets Occ Giant Platelets Occ Prothrombin Time 14.1 SEC (11.7-14.0) Prothromb Time International Ratio 1.1 (0.8-1.1) Activated Partial Thromboplast Time 30 SEC (24-38) Sodium Level 129 mmol/L (136-145) Potassium Level 5.5 mmol/L (3.5-5.1) Chloride Level 94 mmol/L (98-107) Carbon Dioxide Level 23 mmol/L (21-32) Anion Gap 12 (6-14) Blood Urea Nitrogen 44 mg/dL (8-26) Creatinine 1.5 mg/dL (0.7-1.3) Estimated GFR (Cockcroft-Gault) 44.9 BUN/Creatinine Ratio 29 (6-20) Glucose Level 358 mg/dL (70-99) Lactic Acid Level 4.0 mmol/L (0.4-2.0) 2.5 mmol/L (0.4-2.0) Calcium Level 9.2 mg/dL (8.5-10.1) Total Bilirubin 0.2 mg/dL (0.2-1.0) Aspartate Amino Transf (AST/SGOT) 129 U/L (15-37) Alanine Aminotransferase (ALT/SGPT) 151 U/L (16-63) Alkaline Phosphatase 154 U/L (46-116) Creatine Kinase 34 U/L (39-308) Creatine Kinase MB (Mass) 1.4 ng/mL (0.0-3.6) Creatine Kinase MB Relative Index % (0-4) Troponin I Quantitative < 0.017 ng/mL (0.000-0.055) 0.022 ng/mL (0.000-0.055) Total Protein 7.9 g/dL (6.4-8.2) Albumin 2.8 g/dL (3.4-5.0) Albumin/Globulin Ratio 0.5 (1.0-1.7) Lipase 1056 U/L (73-393) Urine Collection Type Unknown Urine Color Yellow Urine Clarity Clear Urine pH 5.0 Urine Specific Collins 1.025 Urine Protein Negative mg/dL (NEG-TRACE) Urine Glucose (UA) >=1000 mg/dL (NEG) Urine Ketones (Stick) Negative mg/dL (NEG) Urine Blood Negative (NEG) Urine Nitrite Negative (NEG) Urine Bilirubin Negative (NEG) Urine Urobilinogen Dipstick 0.2 mg/dL (0.2 mg/dL) Urine Leukocyte Esterase Negative (NEG) Urine RBC 0 /HPF (0-2) Urine WBC Occ /HPF (0-4) Urine Squamous Epithelial Cells Few /LPF Urine Bacteria 0 /HPF (0-FEW) Urine Hyaline Casts Moderate /HPF Urine Mucus Marked /LPF Glucose (Fingerstick) 201 mg/dL (70-99) Test 05/26/18 04:00 05/26/18 06:05 05/26/18 07:41 05/26/18 11:30 Nasal Screen MRSA (PCR) Negative (Negative) Troponin I Quantitative 0.019 ng/mL (0.000-0.055) Glucose (Fingerstick) 133 mg/dL (70-99) White Blood Count 11.4 x10^3/uL (4.0-11.0) Red Blood Count 3.54 x10^6/uL (4.30-5.70) Hemoglobin 9.9 g/dL (13.0-17.5) Hematocrit 30.9 % (39.0-53.0) Mean Corpuscular Volume 87 fL (79-100) Mean Corpuscular Hemoglobin 28 pg (25-35) Mean Corpuscular Hemoglobin Concent 32 g/dL (31-37) Red Cell Distribution Width 15.5 % (11.5-14.5) Platelet Count 716 x10^3/uL (140-400) Neutrophils (%) (Auto) 72 % (31-73) Lymphocytes (%) (Auto) 15 % (24-48) Monocytes (%) (Auto) 9 % (0-9) Eosinophils (%) (Auto) 3 % (0-3) Basophils (%) (Auto) 1 % (0-3) Neutrophils # (Auto) 8.2 x10^3uL (1.8-7.7) Lymphocytes # (Auto) 1.7 x10^3/uL (1.0-4.8) Monocytes # (Auto) 1.0 x10^3/uL (0.0-1.1) Eosinophils # (Auto) 0.4 x10^3/uL (0.0-0.7) Basophils # (Auto) 0.1 x10^3/uL (0.0-0.2) Sodium Level 135 mmol/L (136-145) Potassium Level 4.2 mmol/L (3.5-5.1) Chloride Level 100 mmol/L (98-107) Carbon Dioxide Level 24 mmol/L (21-32) Anion Gap 11 (6-14) Blood Urea Nitrogen 21 mg/dL (8-26) Creatinine 0.9 mg/dL (0.7-1.3) Estimated GFR (Cockcroft-Gault) 81.0 BUN/Creatinine Ratio 23 (6-20) Glucose Level 142 mg/dL (70-99) Lactic Acid Level 1.4 mmol/L (0.4-2.0) Calcium Level 8.3 mg/dL (8.5-10.1) Total Bilirubin 0.3 mg/dL (0.2-1.0) Aspartate Amino Transf (AST/SGOT) 76 U/L (15-37) Alanine Aminotransferase (ALT/SGPT) 109 U/L (16-63) Alkaline Phosphatase 103 U/L (46-116) Total Protein 6.4 g/dL (6.4-8.2) Albumin 2.2 g/dL (3.4-5.0) Albumin/Globulin Ratio 0.5 (1.0-1.7) Lipase 452 U/L (73-393) Test 05/26/18 17:45 05/26/18 21:19 05/27/18 05:45 Glucose (Fingerstick) 149 mg/dL (70-99) 139 mg/dL (70-99) White Blood Count 8.5 x10^3/uL (4.0-11.0) Red Blood Count 3.31 x10^6/uL (4.30-5.70) Hemoglobin 9.6 g/dL (13.0-17.5) Hematocrit 29.1 % (39.0-53.0) Mean Corpuscular Volume 88 fL (79-100) Mean Corpuscular Hemoglobin 29 pg (25-35) Mean Corpuscular Hemoglobin Concent 33 g/dL (31-37) Red Cell Distribution Width 16.3 % (11.5-14.5) Platelet Count 648 x10^3/uL (140-400) Reticulocyte Count (auto) 1.8 % (0.5-2.5) Sodium Level 138 mmol/L (136-145) Potassium Level 4.1 mmol/L (3.5-5.1) Chloride Level 104 mmol/L (98-107) Carbon Dioxide Level 24 mmol/L (21-32) Anion Gap 10 (6-14) Blood Urea Nitrogen 10 mg/dL (8-26) Creatinine 0.9 mg/dL (0.7-1.3) Estimated GFR (Cockcroft-Gault) 81.0 BUN/Creatinine Ratio 11 (6-20) Glucose Level 177 mg/dL (70-99) Calcium Level 8.0 mg/dL (8.5-10.1) Iron Level 31 ug/dL (65-175) Total Iron Binding Capacity 279 ug/dL (250-450) Iron Saturation 11 % (15-34) Total Bilirubin 0.2 mg/dL (0.2-1.0) Aspartate Amino Transf (AST/SGOT) 79 U/L (15-37) Alanine Aminotransferase (ALT/SGPT) 108 U/L (16-63) Alkaline Phosphatase 92 U/L (46-116) Total Protein 6.1 g/dL (6.4-8.2) Albumin 2.2 g/dL (3.4-5.0) Albumin/Globulin Ratio 0.6 (1.0-1.7) Lipase 631 U/L (73-393) Laboratory Tests Test 05/26/18 11:30 05/26/18 17:45 05/26/18 21:19 05/27/18 05:45 White Blood Count 11.4 x10^3/uL (4.0-11.0) 8.5 x10^3/uL (4.0-11.0) Red Blood Count 3.54 x10^6/uL (4.30-5.70) 3.31 x10^6/uL (4.30-5.70) Hemoglobin 9.9 g/dL (13.0-17.5) 9.6 g/dL (13.0-17.5) Hematocrit 30.9 % (39.0-53.0) 29.1 % (39.0-53.0) Mean Corpuscular Volume 87 fL (79-100) 88 fL (79-100) Mean Corpuscular Hemoglobin 28 pg (25-35) 29 pg (25-35) Mean Corpuscular Hemoglobin Concent 32 g/dL (31-37) 33 g/dL (31-37) Red Cell Distribution Width 15.5 % (11.5-14.5) 16.3 % (11.5-14.5) Platelet Count 716 x10^3/uL (140-400) 648 x10^3/uL (140-400) Neutrophils (%) (Auto) 72 % (31-73) Lymphocytes (%) (Auto) 15 % (24-48) Monocytes (%) (Auto) 9 % (0-9) Eosinophils (%) (Auto) 3 % (0-3) Basophils (%) (Auto) 1 % (0-3) Neutrophils # (Auto) 8.2 x10^3uL (1.8-7.7) Lymphocytes # (Auto) 1.7 x10^3/uL (1.0-4.8) Monocytes # (Auto) 1.0 x10^3/uL (0.0-1.1) Eosinophils # (Auto) 0.4 x10^3/uL (0.0-0.7) Basophils # (Auto) 0.1 x10^3/uL (0.0-0.2) Sodium Level 135 mmol/L (136-145) 138 mmol/L (136-145) Potassium Level 4.2 mmol/L (3.5-5.1) 4.1 mmol/L (3.5-5.1) Chloride Level 100 mmol/L (98-107) 104 mmol/L (98-107) Carbon Dioxide Level 24 mmol/L (21-32) 24 mmol/L (21-32) Anion Gap 11 (6-14) 10 (6-14) Blood Urea Nitrogen 21 mg/dL (8-26) 10 mg/dL (8-26) Creatinine 0.9 mg/dL (0.7-1.3) 0.9 mg/dL (0.7-1.3) Estimated GFR (Cockcroft-Gault) 81.0 81.0 BUN/Creatinine Ratio 23 (6-20) 11 (6-20) Glucose Level 142 mg/dL (70-99) 177 mg/dL (70-99) Lactic Acid Level 1.4 mmol/L (0.4-2.0) Calcium Level 8.3 mg/dL (8.5-10.1) 8.0 mg/dL (8.5-10.1) Total Bilirubin 0.3 mg/dL (0.2-1.0) 0.2 mg/dL (0.2-1.0) Aspartate Amino Transf (AST/SGOT) 76 U/L (15-37) 79 U/L (15-37) Alanine Aminotransferase (ALT/SGPT) 109 U/L (16-63) 108 U/L (16-63) Alkaline Phosphatase 103 U/L (46-116) 92 U/L (46-116) Total Protein 6.4 g/dL (6.4-8.2) 6.1 g/dL (6.4-8.2) Albumin 2.2 g/dL (3.4-5.0) 2.2 g/dL (3.4-5.0) Albumin/Globulin Ratio 0.5 (1.0-1.7) 0.6 (1.0-1.7) Lipase 452 U/L (73-393) 631 U/L (73-393) Glucose (Fingerstick) 149 mg/dL (70-99) 139 mg/dL (70-99) Reticulocyte Count (auto) 1.8 % (0.5-2.5) Iron Level 31 ug/dL (65-175) Total Iron Binding Capacity 279 ug/dL (250-450) Iron Saturation 11 % (15-34) Problem List Problems Medical Problems: (1) Hyperglycemia Status: Acute (2) Hyperkalemia Status: Acute (3) Severe sepsis Status: Acute Assessment/Plan supportive care c diff pending LUIZA JOHNSON MD 05/27/18 1059: SURGICAL PROGRESS NOTE Assessment/Plan Pt seen and examined. Agree with MsRose Bayron's note Pt feels much better abd soft, ND, NTTP, ostomy fxn, working with stoma team agree with cards evaluation for tachycardia DAYNE NEWBERRY INFORMATION TECHNOLOGY ADVISOR May 27, 2018 09:08 LUIZA JOHNSON MD May 27, 2018 10:59
--- NOTE | 2018-05-27 09:20 | NUR ---
Wound Care Team to bedside to address ostomy bag leakage. Patient tolerating well. Dr. Jesus notified of no medication for pain. Fentanyl order received.
[2018-05-27] MEDS: fentaNYL PF VIAL 100 MCG/2 ML VIAL IV PRN ×2 (09:22→22:12)
--- NOTE | 2018-05-27 09:30 | NUR ---
Wound/Ostomy Care Pt seen for Ostomy care after receiving call from MELINDA De Jesus stating bag was leaking. Bag removed, skin cleaned with wet washcloths, pt has a large area of irritated, reddened skin with a small denuded area around the stoma. Skin prepped, then stoma powder applied, then a 4" ostomy ring applied to peristoma, then a 1 piece flat bag placed over stoma. No leakage noted, pt received pain medication and stated he is feeling better already. Will check on pt later today for follow up.
--- NOTE | 2018-05-27 09:54 | PDOC ---
Subjective: Subjective: Tolerated breakfast w/o abd pain or n/v. Says ostomy has been leaking - area around it sore. Objective: Vital Signs: Vital Signs Date Time Temp Pulse Resp B/P (MAP) Pulse Ox O2 Delivery O2 Flow Rate FiO2 05/27/18 09:00 127 22 120/75 (90) 98 Room Air 05/27/18 07:00 98.4 98.4 Labs: Laboratory Tests Test 05/26/18 11:30 05/26/18 17:45 05/26/18 21:19 05/27/18 05:45 White Blood Count 11.4 x10^3/uL 8.5 x10^3/uL Red Blood Count 3.54 x10^6/uL 3.31 x10^6/uL Hemoglobin 9.9 g/dL 9.6 g/dL Hematocrit 30.9 % 29.1 % Mean Corpuscular Volume 87 fL 88 fL Mean Corpuscular Hemoglobin 28 pg 29 pg Mean Corpuscular Hemoglobin Concent 32 g/dL 33 g/dL Red Cell Distribution Width 15.5 % 16.3 % Platelet Count 716 x10^3/uL 648 x10^3/uL Neutrophils (%) (Auto) 72 % Lymphocytes (%) (Auto) 15 % Monocytes (%) (Auto) 9 % Eosinophils (%) (Auto) 3 % Basophils (%) (Auto) 1 % Neutrophils # (Auto) 8.2 x10^3uL Lymphocytes # (Auto) 1.7 x10^3/uL Monocytes # (Auto) 1.0 x10^3/uL Eosinophils # (Auto) 0.4 x10^3/uL Basophils # (Auto) 0.1 x10^3/uL Sodium Level 135 mmol/L 138 mmol/L Potassium Level 4.2 mmol/L 4.1 mmol/L Chloride Level 100 mmol/L 104 mmol/L Carbon Dioxide Level 24 mmol/L 24 mmol/L Anion Gap 11 10 Blood Urea Nitrogen 21 mg/dL 10 mg/dL Creatinine 0.9 mg/dL 0.9 mg/dL Estimated GFR (Cockcroft-Gault) 81.0 81.0 BUN/Creatinine Ratio 23 11 Glucose Level 142 mg/dL 177 mg/dL Lactic Acid Level 1.4 mmol/L Calcium Level 8.3 mg/dL 8.0 mg/dL Total Bilirubin 0.3 mg/dL 0.2 mg/dL Aspartate Amino Transf (AST/SGOT) 76 U/L 79 U/L Alanine Aminotransferase (ALT/SGPT) 109 U/L 108 U/L Alkaline Phosphatase 103 U/L 92 U/L Total Protein 6.4 g/dL 6.1 g/dL Albumin 2.2 g/dL 2.2 g/dL Albumin/Globulin Ratio 0.5 0.6 Lipase 452 U/L 631 U/L Glucose (Fingerstick) 149 mg/dL 139 mg/dL Reticulocyte Count (auto) 1.8 % Iron Level 31 ug/dL Total Iron Binding Capacity 279 ug/dL Iron Saturation 11 % BLOOD CULTURE Preliminary NO GROWTH AFTER 1 DAY Imaging: Abd US The gallbladder is surgically absent. There is a 1.1 cm hypoechoic lesion in the right lobe of liver. It demonstrates a thin echogenic rim. This is most likely a small cyst. No other hepatic lesion is seen. The common hepatic duct is of normal caliber. The visualized portions of the pancreas and right kidney are unremarkable. IMPRESSION: 1. Status post cholecystectomy. 2. Small right renal cyst. PE: GEN: NAD LUNGS: CTAB HEART: RRR ABD: RLQ ostomy w/ dark liquid NEURO/PSYCH: A & O 3 A/P: Leukocytosis, lactic acidosis, DENNIS - resolved Transaminitis (stable), elevated lipase (slightly increased today) Chronic anemia - stable Probable hepatic cyst, s/p cholecystectomy Recent sigmoid and ileocolic resection w/ ileostomy, LIAM, drainage of abscess -- Was changed to famotidine from pantoprazole by pharmacy, not sure why. Note plans to check C Diff. Unclear significance of mildly elevated lipase w/o abd pain. EMILY KNIGHT May 27, 2018 09:54
[2018-05-27] MEDS: VANCOMYCIN PER PHARMACY MC PRN ×3 (10:42→22:37)
[2018-05-27 11:19] LABS: FREE T4 0.98 ng/dL (0.76-1.46); THYROID STIM HORMONE (TSH) 4.476 uIU/mL (0.358-3.74)
[2018-05-27] MEDS: PIPERACILLIN/TAZOBACTAM 3.375 GM in IV NORMAL SALINE 50ML 50 ML IV SCH ×2 (11:27→17:27)
--- NOTE | 2018-05-27 11:36 | PDOC2 ---
BROOKE LI PICKER TENDER HELPER 05/27/18 1136: CARDIAC CONSULT DATE OF CONSULT Date of Consult DATE: 05/27/18 TIME: 11:06 REASON FOR CONSULT Reason for Consult: Persistent tachycardia REFERRING PHYSICIAN Referring Physician: Edin SOURCE Source: Chart review, Patient HISTORY OF PRESENT ILLNESS HISTORY OF PRESENT ILLNESS This is an 82 yo male admitted for complains of being weak, dehydrated and abdominal discomfort with recent bowel surgery. He came from rehab. Upon further check he has been noted with renal insufficiency, leukocytosis and abnormal LFTs. 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 As an inpt he has been noted with persistent tachycardia but asymptomatic. PAST MEDICAL HISTORY Past Medical History Cardiovascular: CAD, HTN, Hyperlipidemia Pulmonary: COPD CENTRAL NERVOUS SYSTEM: Other (No pertinent history) GI; diverticulitis, abdominal abscess Musculoskeletal: Osteoarthritis Renal/: Benign prostatic enlarg. Endocrine: Diabetes (2) Dermatology: Other (skin CA) PAST SURGICAL HISTORY Past Surgical History Cholecystectomy, Hernia Repair, Other (PCI/stent 01/22/2018; skin CA removal) FAMILY HISTORY Family History noncontributory to CV SOCIAL HISTORY Social History Smoke: Quit (>10 yrs ) ALCOHOL: occasional Drugs: None Lives: with Family Lives: Detention (rehab) CURRENT MEDICATIONS CURRENT MEDICATIONS Current Medications Medications (Trade) Dose Ordered Sig/Annie Route PRN Reason Start Time Stop Time Status Last Admin Dose Admin Vancomycin HCl 1 gm/Sodium Chloride 250 ml @ 250 mls/hr Q24H IV 05/26/18 22:00 05/26/18 21:34 Sodium Chloride 1,000 ml @ 100 mls/hr 1X ONCE IV 05/26/18 11:45 05/26/18 21:44 DC 05/26/18 13:08 Sodium Chloride 1,000 ml @ 1,000 mls/hr 1X ONCE IV 05/26/18 11:45 05/26/18 12:44 DC 05/26/18 11:52 Pantoprazole Sodium (Protonix) 40 mg DAILYAC PO 05/26/18 16:00 05/26/18 23:59 DC 05/26/18 16:19 Famotidine (Pepcid) 20 mg DAILY PO 05/27/18 09:00 05/27/18 08:07 Lactobacillus Rhamnosus (Culturelle) 1 cap BID PO 05/26/18 21:00 05/27/18 08:07 Fentanyl Citrate (Fentanyl 2ml Vial) 50 mcg PRN Q2HR PRN IV PAIN 05/27/18 09:15 05/27/18 09:22 ALLERGIES ALLERGIES: Coded Allergies: latex (Verified Allergy, Intermediate, rash/blisters, , 01/21/18) ROS Review of System 14 point ROS evaluated with pertinent positives noted per HPI PHYSICAL EXAM General: Alert, Oriented X3, Cooperative, No acute distress HEENT: Atraumatic, Mucous membr. moist/pink Lungs: Other (diminished bases) Heart: Regular rate, Other (2/6 systolic murmur) Abdomen: Soft, Other (ileostomy) Extremities: No cyanosis, No edema Skin: No breakdown, No significant lesion Neuro: Normal speech, Sensation intact Psych/Mental Status: Mental status NL, Mood NL MUSCULOSKELETAL: Osteoarthritic changes both hands VITALS VITALS Vital Signs Date Time Temp Pulse Resp B/P (MAP) Pulse Ox O2 Delivery O2 Flow Rate FiO2 05/27/18 10:00 115 18 102/58 (73) 98 Room Air 05/27/18 07:00 98.4 98.4 LABS Lab: Laboratory Tests Test 05/26/18 11:30 05/26/18 17:45 05/26/18 21:19 05/27/18 05:45 White Blood Count 11.4 x10^3/uL (4.0-11.0) 8.5 x10^3/uL (4.0-11.0) Red Blood Count 3.54 x10^6/uL (4.30-5.70) 3.31 x10^6/uL (4.30-5.70) Hemoglobin 9.9 g/dL (13.0-17.5) 9.6 g/dL (13.0-17.5) Hematocrit 30.9 % (39.0-53.0) 29.1 % (39.0-53.0) Mean Corpuscular Volume 87 fL (79-100) 88 fL (79-100) Mean Corpuscular Hemoglobin 28 pg (25-35) 29 pg (25-35) Mean Corpuscular Hemoglobin Concent 32 g/dL (31-37) 33 g/dL (31-37) Red Cell Distribution Width 15.5 % (11.5-14.5) 16.3 % (11.5-14.5) Platelet Count 716 x10^3/uL (140-400) 648 x10^3/uL (140-400) Neutrophils (%) (Auto) 72 % (31-73) Lymphocytes (%) (Auto) 15 % (24-48) Monocytes (%) (Auto) 9 % (0-9) Eosinophils (%) (Auto) 3 % (0-3) Basophils (%) (Auto) 1 % (0-3) Neutrophils # (Auto) 8.2 x10^3uL (1.8-7.7) Lymphocytes # (Auto) 1.7 x10^3/uL (1.0-4.8) Monocytes # (Auto) 1.0 x10^3/uL (0.0-1.1) Eosinophils # (Auto) 0.4 x10^3/uL (0.0-0.7) Basophils # (Auto) 0.1 x10^3/uL (0.0-0.2) Sodium Level 135 mmol/L (136-145) 138 mmol/L (136-145) Potassium Level 4.2 mmol/L (3.5-5.1) 4.1 mmol/L (3.5-5.1) Chloride Level 100 mmol/L (98-107) 104 mmol/L (98-107) Carbon Dioxide Level 24 mmol/L (21-32) 24 mmol/L (21-32) Anion Gap 11 (6-14) 10 (6-14) Blood Urea Nitrogen 21 mg/dL (8-26) 10 mg/dL (8-26) Creatinine 0.9 mg/dL (0.7-1.3) 0.9 mg/dL (0.7-1.3) Estimated GFR (Cockcroft-Gault) 81.0 81.0 BUN/Creatinine Ratio 23 (6-20) 11 (6-20) Glucose Level 142 mg/dL (70-99) 177 mg/dL (70-99) Lactic Acid Level 1.4 mmol/L (0.4-2.0) Calcium Level 8.3 mg/dL (8.5-10.1) 8.0 mg/dL (8.5-10.1) Total Bilirubin 0.3 mg/dL (0.2-1.0) 0.2 mg/dL (0.2-1.0) Aspartate Amino Transf (AST/SGOT) 76 U/L (15-37) 79 U/L (15-37) Alanine Aminotransferase (ALT/SGPT) 109 U/L (16-63) 108 U/L (16-63) Alkaline Phosphatase 103 U/L (46-116) 92 U/L (46-116) Total Protein 6.4 g/dL (6.4-8.2) 6.1 g/dL (6.4-8.2) Albumin 2.2 g/dL (3.4-5.0) 2.2 g/dL (3.4-5.0) Albumin/Globulin Ratio 0.5 (1.0-1.7) 0.6 (1.0-1.7) Lipase 452 U/L (73-393) 631 U/L (73-393) Glucose (Fingerstick) 149 mg/dL (70-99) 139 mg/dL (70-99) Reticulocyte Count (auto) 1.8 % (0.5-2.5) Iron Level 31 ug/dL (65-175) Total Iron Binding Capacity 279 ug/dL (250-450) Iron Saturation 11 % (15-34) Vitamin B12 Level 440 pg/mL (247-911) Hepatitis A IgM Antibody Nonreactive (Nonreactive) Hepatitis B Surface Antigen Nonreactive (Nonreactive) Hepatitis B Core IgM Antibody Nonreactive (Nonreactive) Hepatitis C IgG Antibody Nonreactive (Nonreactive) ECHOCARDIOGRAM ECHOCARDIOGRAM <Conclusion> The left ventricular systolic function is normal. The Ejection Fraction is 55%. There is normal LV segmental wall motion. Trace mitral regurgitation. Trace tricuspid regurgitation. The PA pressure was estimated at 43 mmHg. There is no evidence of significant pericardial effusion. DATE: 04/21/18 1141 HEART CATH HEART CATH Conclusion 1. 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 Successful PCI with implantation of a 4.0/18 mm ANH, confirming excellent placement by IVUS. Recommendations ASA 81 mg daily Ticagrelor 90mg bid for 1 full year. High dose statin therapy Cardiac rehab. Supportive care. DATE: 01/22/18 1224 ASSESSMENT/PLAN ASSESSMENT/PLAN 1. Tachycardia: appears to be MAT. 2. Arrhythmia: x1 episode yesterday brief aberrant irregular possibly rate induced with underlying metabolic issues, None further 3. CAD: 01/22/2018 PCI/ANH to LAD, clinically stable. 4. Hypertension; controlled 5. DM2/HLP 6. abdominal pain/transaminitis with recent exlap/bowel resection/ileostomy: GI /general surgery following 7. Transaminitis 8. COPD 9. DENNIS: much improved after IV hydration Recommendations 1. Limited TTE and note EF and RV. 2. Continue DAPT. Restart BB, metop for now not coreg as BP is controlled. 3. May hold statin for now 4. Supportive care ISMAEL POSADAS MD 05/27/18 1342: CARDIAC CONSULT ASSESSMENT/PLAN ASSESSMENT/PLAN Pt. seen and examined. Agree with above COMMISSARY OFFICER note with following comments: Fluid resuscitation as needed. Tachycardia likely secondary. Hold ticagrelor if any surgical plans in the next 48 hours. Otherwise, continue DAPT with asa, ticagrelor. Supportive care. BROOKE LI APRN May 27, 2018 11:36 ISMAEL POSADAS MD May 27, 2018 13:42
--- NOTE | 2018-05-27 15:38 | NUR ---
Patient taken to 4th floor via wheelchair accompanied by transportation personnel. All personal belongings with patient. and family with patient.
--- NOTE | 2018-05-27 16:08 | NUR ---
SS following for discharge planning. SS received notification that pt was from [facility], ; fax [phone]. SS contacted [facility] to verify pt's previous placement. 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 Pt's RN notified.
--- NOTE | 2018-05-27 16:13 | CARD ---
MR#: [id number] Date of Study: 05/27/2018 Ordering Physician: BROOKE LI, Referring Physician: CARL HENDERSON Tech: Josephine Womack PREMA APPROVED REPORT EXAM: LIMITED Two-dimensional echocardiogram with Doppler and color Doppler. Other Information Quality : Fair Technically limited study due to body habitus. INDICATION LV Function:Systolic Right Ventricular Function 2D DIMENSIONS RVDd2.7 (2.9-3.5cm)Left Atrium(2D)3.4 (1.6-4.0cm) IVSd0.9 (0.7-1.1cm)Aortic Root(2D)2.6 (2.0-3.7cm) LVDd4.4 (3.9-5.9cm)PWd0.9 (0.7-1.1cm) LVDs2.7 (2.5-4.0cm)FS (%) 30.0 % SV59.6 mlLVEF(%)60.0 (>50%) Aortic Valve AoV Peak Owen.96.5cm/sAoV VTI13.9cm AO Peak GR.3.7mmHgLVOT VTI 15.32cm AO Mean GR.2mmHg Mitral Valve MV E Mmwirlop91.4cm/sMV DECEL [id number] MV A Bkubniqk31.3cm/sE/A Ratio0.9 TDI Lateral E' P. V8.03cm/sMedial E' P. V5.69cm/s E/Lateral E'6.8E/Medial E'9.6 Tricuspid Valve TR P. Xslbiydh486uw/sRAP JJQYJGAA9cnTk TR Peak Gr.56sgZtFRUI65pdMd Pulmonary Vein S1 Ksnxsgir50.3cm/sS2 Beeutdxc79.87cm/s D2 Arzmivji40.9cm/s LEFT VENTRICLE The left ventricle is normal size. There is normal left ventricular wall thickness. The left ventricu lar systolic function is mildly abnormal. Difficult to estimate due to arrhythmia/tachycardia. EF lik etta estimated at 40%. Septal motion consistent with conduction abnormality. Mild global hypokinesis. Transmitral Doppler flow pattern is Grade I-abnormal relaxation pattern. RIGHT VENTRICLE The right ventricle is normal size. The right ventricular systolic function is normal. ATRIA The left atrium size is normal. The right atrium size is normal. The interatrial septum is intact wit h no evidence for an atrial septal defect or patent foramen ovale as noted on 2-D or Doppler imaging. MITRAL VALVE The mitral valve is calcified but opens well. There is no evidence of mitral valve prolapse. There is no mitral valve stenosis. Doppler and Color Flow revealed no mitral valve regurgitation noted. TRICUSPID VALVE The tricuspid valve is normal in structure and function. Doppler and Color Flow revealed trace tricus pid regurgitation. The PA pressure was estimated at 21 mmHg. There is no tricuspid valve stenosis. GREAT VESSELS The aortic root is normal in size. The ascending aorta is not well seen. The IVC is normal in size an d collapses >50% with inspiration. PERICARDIAL EFFUSION There is no evidence of significant pericardial effusion. Critical Notification Critical Value: No <Conclusion> The left ventricular systolic function is mildly abnormal. Difficult to estimate due to arrhythmia/ta chycardia. EF likely estimated at 40%. Septal motion consistent with conduction abnormality. Mild global hypokinesis. Limited echo only. Limited valvular evaluation does not reveal any significant pathology. Signed by : Ronald Lees, Electronically Approved : 05/27/2018 16:12:27
[2018-05-27] MEDS: FERROUS SULFATE ORAL 300 MG/5 ML SOLUTION. PO SCH (17:25)
[2018-05-27 18:12] LABS: THYROXINE 5.6 ug/dL (4.5-12.0)
--- NOTE | 2018-05-27 19:11 | PN ---
DATE: 05/27/2018 SUBJECTIVE: The patient is resting slightly propped up in bed, in no apparent distress, awake, alert, continued to have pain around his ostomy bag, but denied any other complaint. The nursing staff states that he ate his breakfast without any difficulty. However, he continued to have sinus tachycardia for some reason, although has been persistently afebrile. His white cell count is down from 15,000 to 8500. His kidney function has also improved; in fact, his creatinine came down from 1.5 to 0.9, has received at least 4 liters of fluid. PHYSICAL EXAMINATION: GENERAL: When I examined him, he looked pale, cachectic, but no jaundice, cyanosis, or thyromegaly. No jugular venous distension. No limb edema. VITAL SIGNS: His heart rate was 127, blood pressure was 120/75, temperature was 98.4, respiratory rate was 22 and oxygen saturation was 98%. HEAD, EYES, EARS, NOSE AND THROAT: Showed normocephalic, atraumatic. NECK: Supple. HEART: Showed normal first and second sounds. No gallop, rub or murmur. CHEST: Clear to auscultation. No crepitation or rhonchi. ABDOMEN: Scaphoid, soft with a midline surgical incision healing nicely. He has an ileostomy in the right lower quadrant. There is no tenderness, no guarding or rigidity, no organomegaly. All hernial orifices intact. Bowel sounds normal. NEUROLOGIC: He is awake, alert, although occasionally confused. All his cranial nerves are intact. He moves extremities without difficulty. His intake was 2550, output was 500. LABORATORY DATA: As of this morning, his white cell count was 8500, hemoglobin 10, hematocrit 29, MCV 88 and platelet count of 648,000. His chemistry showed a serum sodium 138, potassium 4.1, chloride 104, bicarbonate 24, anion gap of 10, BUN 10, creatinine 0.9, estimated GFR was 81 mL per minute, his glucose 177, calcium was 8. Serum iron, TIBC and iron saturation are all low consistent with anemia of chronic disease. His total bilirubin and alkaline phosphatase normal. AST, ALT slightly elevated. His total protein was 6.1, albumin was 2.2 and serum lipase has risen slightly from 453 yesterday to 631. So far, all his blood cultures are negative. ASSESSMENT: 1. Sepsis, the source of which is not very clear and the patient is on IV antibiotic and responding very well. 2. Hypernatremia, resolved. His serum sodium is 138. 3. Hyperkalemia, resolved. His today's potassium is 4.1. 4. Acute kidney injury, resolved. His creatinine came down from 1.5 to 0.9. 5. Transaminitis, improving gradually. 6. Pancreatitis. The serum lipase has risen, it was high at 1056 today, it dropped down yesterday to 452 and today is up to 631. The patient is tolerating his diet well. He seems stable. The only abnormalities are persistent sinus tachycardia for some reason, although he is afebrile. He has received about 4 liters of fluid. His kidney function has improved. His hemoglobin and hematocrit are stable so far. I will consult the Cardiology see if he has any other explanation for his sinus tachycardia. CARL HENDERSON MD DR: BRITTNY/gloria JOB#: [id number] / [id number]
[2018-05-27] MEDS ORDERED: INSULIN LISPRO 300 UNITS/3 ML INSULN.PEN. SQ ONE (20:30)
[2018-05-27] MEDS: METOPROLOL TART IMMED RELEASE 25 MG TABLET. PO SCH (21:00)
[2018-05-27] MEDS: TICAGRELOR 90 MG TABLET. PO SCH (21:25)
[2018-05-27 21:45] LABS: VANC TR 7.4 mcg/mL (10.0-20.0)
[2018-05-27] MEDS: VANCOMYCIN 1 GM in IV NORMAL SALINE 250ML 250 ML IV SCH (22:00)
[2018-05-27] MEDS ORDERED: VANCOMYCIN 1 GM in IV NORMAL SALINE 250ML 250 ML IV SCH (22:30)
--- NOTE | 2018-05-27 22:41 | NUR ---
Pharmacy Vancomycin Dosing Note S: Consulted to monitor and dose vancomycin started 05/25/18. O: EDITH SELBY is a 82 year old M with Sepsis recurrent diverticulitis/abd abscess . Other Antibiotics: zosyn LABS: Last BUN: 10 Last Creatinine: 0.9 Creatinine Clearance: 47 mL/min Last WBC: 8.5 Last Platelets: Tmax (past 24 hours): 98.4 Microbiology: 05/26 Blood: no growth I/O: Drug Levels: Last Trough level: 7.4 on 05/27/18 at 2105 Last dose given 05/26/18 at 213 Vancomycin Dosing: Dosing Weight: Actual Target Trough: 15-20 A: Based on: Trough, Updated Wt and Improved CrCl P: 1. 05/27/180 Increase Vancomycin 1000 mg IV q12h 2. Follow up Trough level on 05/28/18 at 2200 3. Pharmacy will continue to monitor, follow and adjust therapy as needed. MAIN DAVIS RPH, 05/27/182240 Signed: 05/27/18 at 2242 by MAIN DAVIS RPH PHA
[2018-05-28] MEDS: PIPERACILLIN/TAZOBACTAM 3.375 GM in IV NORMAL SALINE 50ML 50 ML IV SCH ×5 (00:30→23:56)
[2018-05-28 03:00] VITALS: BP 122/65
[2018-05-28 07:00] VITALS: BP 116/67
--- NOTE | 2018-05-28 07:40 | PDOC ---
Infectious Disease Note Subjective: Subjective . pt says feels better, no complaints no soreness /leakage around the peg tube site Maintains good ostomy output. He has been passing gas. No f/c/headache/sore throat/odynophagia/rash/sob/cough/gu symptoms. ROS: ROS Negative except for above. Vital Signs: Vital Signs Vital Signs Date Time Temp Pulse Resp B/P (MAP) Pulse Ox O2 Delivery O2 Flow Rate FiO2 05/28/18 03:00 98.0 110 14 122/65 (84) 96 Room Air 98.0 Physical Exam: PHYSICAL EXAM GENERAL: Propped up in bed, alert, NAD HEENT: Pupils equal and reactive. Oral cavity, pharynx clear, dentures, no thrush NECK: Supple, no JVD. LUNGS: Clear to auscultation, HEART: S1, S2. ABDOMEN: Mildly distended, soft, previous scar well h ealed,tender to light palpation,BS + dressing dry. ostomy bag sealed.watery green colored stool EXTREMITIES: No clubbing, cyanosis or gross edema. SKIN: Warm to touch without signs of rash. NEUROLOGIC: Alert, nonfocal and appropriate. Medications: Inpatient Meds: Current Medications Medications (Trade) Dose Ordered Sig/Annie Start Time Stop Time Status Last Admin Dose Admin Aspirin (Ecotrin) 81 mg DAILYWBKFT 05/28/18 08:00 Dextrose (Dextrose 50%-Water Syringe) 12.5 gm PRN Q15MIN PRN 05/26/18 00:15 Famotidine (Pepcid Vial) 20 mg 1X ONCE 05/25/18 19:45 05/25/18 19:46 DC 05/25/18 20:00 20 MG Famotidine (Pepcid) 20 mg DAILY 05/27/18 09:00 05/27/18 08:07 20 MG Fentanyl Citrate (Fentanyl 2ml Vial) 50 mcg PRN Q2HR PRN 05/27/18 09:15 05/27/18 22:12 50 MCG Ferrous Sulfate (Iron Oral Solution) 300 mg BIDWMEALS 05/27/18 17:00 05/27/18 17:25 300 MG Insulin Human Lispro (HumaLOG) 3 units 1X ONCE 05/27/18 20:30 05/27/18 20:36 DC 05/27/18 21:15 3 UNITS Insulin Human Regular (HumuLIN R VIAL) 5 unit 1X ONCE 05/25/18 22:45 05/25/18 22:46 DC 05/25/18 21:40 5 UNIT Lactobacillus Rhamnosus (Culturelle) 1 cap BID 05/26/18 21:00 05/27/18 21:06 1 CAP Metoprolol Tartrate (Lopressor) 25 mg BID 05/27/18 21:00 Ondansetron HCl (Zofran) 4 mg PRN Q8HRS PRN 05/26/18 00:15 05/27/18 00:14 DC Pantoprazole Sodium (Protonix) 40 mg DAILYAC 05/26/18 16:00 05/26/18 23:59 DC 05/26/18 16:19 40 MG Pharmacy Consult (C.diff Med Screen By Rx) 1 each 1X ONCE 05/26/18 03:30 05/26/18 03:31 Cancel Piperacillin Sod/ Tazobactam Sod 3.375 gm/Sodium Chloride 50 ml @ 100 mls/hr Q6HRS 05/27/18 11:30 05/28/18 05:35 100 MLS/HR Sodium Chloride 1,000 ml @ 1,000 mls/hr 1X ONCE 05/26/18 11:45 05/26/18 12:44 DC 05/26/18 11:52 1,000 MLS/HR Ticagrelor (Brilinta) 90 mg BID 05/27/18 21:00 05/27/18 21:25 90 MG Vancomycin HCl (Vanco Per Pharmacy) 1 each PRN DAILY PRN 05/25/18 21:30 05/27/18 22:37 1 EACH Vancomycin HCl (Vancomycin Trough Level) 1 each 1X ONCE 05/28/18 22:00 05/28/18 22:01 Vancomycin HCl 1.5 gm/Sodium Chloride 500 ml @ 250 mls/hr 1X ONCE 05/25/18 21:15 05/25/18 23:14 DC 05/25/18 22:32 250 MLS/HR Vancomycin HCl 1 gm/Sodium Chloride 250 ml @ 250 mls/hr Q12H 05/27/18 22:30 05/27/18 22:33 250 MLS/HR Labs: Lab Laboratory Tests Test 05/27/18 08:30 05/27/18 11:52 05/27/18 16:41 05/27/18 20:15 Clostridium difficile Toxin B Gene Negative (Negative) Glucose (Fingerstick) 216 mg/dL (70-99) 152 mg/dL (70-99) 344 mg/dL (70-99) Test 05/27/18 21:05 Vancomycin Level Trough 7.4 mcg/mL (10.0-20.0) Vancomycin Last Dose Date 05/26/18 Vancomycin Last Dose Time 2200 Micro Micro BC done neg so far from this admission RUN DATE: 05/20/18 PAGE 1 RUN TIME: 2108 [facility] [address] [place] [address] Jonathan Sauceda M.D., Hot Roller PATIENT: EDITH SELBY ACCT: [id number] LOC: [address] [place] [address] U : [id number] AGE/SX: 82/M ROOM: 432 REG : 05/10/[address]: ANITA ALVARADO MD : [id number] BED: 1 DIS : 05/20/18 STATUS: DIS IN TLOC: SPEC #: [id number] AROLDO: 05/11/18 STATUS: COMP REQ #: [id number] RECD: 05/11/[address]: EVA YANES MD SOURCE: ABD FLUID ENTR: 05/11/[address]: LUIZA JOHNSON MD SPDESC: AUNG CASTRO MD, IRA W MD SEYMOUR, GALEN L MD ORDERED: ANAER/AEROB/GS Procedure Result ANAEROBIC-AEROBIC CULTURE Final Final report ANAEROBIC RES 1 Final Comment No anaerobic growth in 72 hours. AEROBIC CULT Final Final report AEROBIC RES 1 Final Escherichia coli 4+ AEROBIC RES 2 Final Yeast isolated. 4+ Request for further identification must be made within 1 week. AEROBIC RES 3 Final Mixed skin mireya 4+ ANTIMICROBIAL SUSCEPTIBILITY Final Comment S = Susceptible; I = Intermediate; R = Resistant P = Positive; N = Negative MICS are expressed in micrograms per mL Antibiotic RSLT#1 RSLT#2 RSLT#3 RSLT#4 Amoxicillin/Clavulanic Acid S =8 Ampicillin R =R CONTINUED ON NEXT PAGE RUN DATE: 05/20/18 PAGE 2 RUN TIME: 2[address] [facility] [address] [place] [address] Jonathan Sauceda M.D., Hot Roller SPEC: [id number] PATIENT: EDITH SELBY [id number] ( Continued) Procedure Result ANTIMICROBIAL SUSCEPTIBILITY Final (continued) Cefepime S<=0.12 Ceftriaxone S<=0.25 Cefuroxime R>=64 Ciprofloxacin R>=4 Ertapenem S<=0.12 Gentamicin S<=1 Imipenem S<=0.25 Levofloxacin R>=8 Meropenem S<=0.25 Piperacillin/Tazobactam S<=4 Tetracycline S<=1 Tobramycin S<=1 Trimethoprim/Sulfa S<=20 GRAM STAIN Final Final report GRAM STAIN RES 1 Final Comment No white blood cells seen. GRAM STAIN RES 2 Final Comment Few gram negative rods. GRAM STAIN RES 3 Final Comment Few gram positive cocci GRAM STAIN RES 4 Final Comment Few gram positive rods. Performed at: - [facility] [address], [place], [place] [id number] Cell Builder: ALDO Bearden MD, Phone: [phone] SUSCEPTIBILITY TESTING AEROBIC Final Comment CONTINUED ON NEXT PAGE RUN DATE: 05/20/18 PAGE 3 RUN TIME: 359 [facility] [address] [facility] [place] [address] Jonathan Sauceda M.D., Hot Roller SPEC: [id number] PATIENT: EDITH SELBY [id number] ( Continued) Procedure Result SUSCEPTIBILITY TESTING AEROBIC Final (continued) Written Authorization Received. Authorization received from CYDNEY ZHENG 05-20-2018 Logged by Chun Bowen Performed at: [facility] [address] [id number] Cell Builder: Jani Chavira MD, Phone: [phone] Objective: Assessment: Leucocytosis, lactic acidosis,julia improving 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 Recurrent abdominal abscesses s/p drain on 05/11 with growth of mixed mireya, yeast and E. coli (R quinolones, amp, cefuroxime) - h/o IR drain on 04/21 with growth of Bacteroides, E. coli (R quinolones), Klebsiella and (yeast on GS) Transaminitis with high lipase DM poorly controlled s/p cystoscopy with bilateral stent placement, 05/15.Urine c/s 05/17 neg Chronic anemia GERD S/p cholecystectomy CAD C diff pcr neg Plan: Plan of Care Cont Zosyn DC IV Vanc cont ostomy care f/u labs and cults d/w LG MULLINS MD May 28, 2018 07:40
--- NOTE | 2018-05-28 08:10 | PDOC ---
DAYNE NEWBERRY RN MANAGED CARE 05/28/18 0810: SURGICAL PROGRESS NOTE Subjective tolerating diet ostomy seal better now Vital Signs Vital Signs Date Time Temp Pulse Resp B/P (MAP) Pulse Ox O2 Delivery O2 Flow Rate FiO2 05/28/18 03:00 98.0 110 14 122/65 (84) 96 Room Air 98.0 I&O Intake and Output 05/28/18 06:59 Intake Total 640 ml Output Total 2350 ml Balance -1710 ml Intake Oral 640 ml Output Urine Total 1025 ml Stool Total 1325 ml General: Alert, Oriented X3, Cooperative, No acute distress Abdomen: Soft, Other (ostomy functioning ) Labs Laboratory Tests Test 05/26/18 11:30 05/26/18 17:45 05/26/18 21:19 05/27/18 05:45 White Blood Count 11.4 x10^3/uL (4.0-11.0) 8.5 x10^3/uL (4.0-11.0) Red Blood Count 3.54 x10^6/uL (4.30-5.70) 3.31 x10^6/uL (4.30-5.70) Hemoglobin 9.9 g/dL (13.0-17.5) 9.6 g/dL (13.0-17.5) Hematocrit 30.9 % (39.0-53.0) 29.1 % (39.0-53.0) Mean Corpuscular Volume 87 fL (79-100) 88 fL (79-100) Mean Corpuscular Hemoglobin 28 pg (25-35) 29 pg (25-35) Mean Corpuscular Hemoglobin Concent 32 g/dL (31-37) 33 g/dL (31-37) Red Cell Distribution Width 15.5 % (11.5-14.5) 16.3 % (11.5-14.5) Platelet Count 716 x10^3/uL (140-400) 648 x10^3/uL (140-400) Neutrophils (%) (Auto) 72 % (31-73) Lymphocytes (%) (Auto) 15 % (24-48) Monocytes (%) (Auto) 9 % (0-9) Eosinophils (%) (Auto) 3 % (0-3) Basophils (%) (Auto) 1 % (0-3) Neutrophils # (Auto) 8.2 x10^3uL (1.8-7.7) Lymphocytes # (Auto) 1.7 x10^3/uL (1.0-4.8) Monocytes # (Auto) 1.0 x10^3/uL (0.0-1.1) Eosinophils # (Auto) 0.4 x10^3/uL (0.0-0.7) Basophils # (Auto) 0.1 x10^3/uL (0.0-0.2) Sodium Level 135 mmol/L (136-145) 138 mmol/L (136-145) Potassium Level 4.2 mmol/L (3.5-5.1) 4.1 mmol/L (3.5-5.1) Chloride Level 100 mmol/L (98-107) 104 mmol/L (98-107) Carbon Dioxide Level 24 mmol/L (21-32) 24 mmol/L (21-32) Anion Gap 11 (6-14) 10 (6-14) Blood Urea Nitrogen 21 mg/dL (8-26) 10 mg/dL (8-26) Creatinine 0.9 mg/dL (0.7-1.3) 0.9 mg/dL (0.7-1.3) Estimated GFR (Cockcroft-Gault) 81.0 81.0 BUN/Creatinine Ratio 23 (6-20) 11 (6-20) Glucose Level 142 mg/dL (70-99) 177 mg/dL (70-99) Lactic Acid Level 1.4 mmol/L (0.4-2.0) Calcium Level 8.3 mg/dL (8.5-10.1) 8.0 mg/dL (8.5-10.1) Total Bilirubin 0.3 mg/dL (0.2-1.0) 0.2 mg/dL (0.2-1.0) Aspartate Amino Transf (AST/SGOT) 76 U/L (15-37) 79 U/L (15-37) Alanine Aminotransferase (ALT/SGPT) 109 U/L (16-63) 108 U/L (16-63) Alkaline Phosphatase 103 U/L (46-116) 92 U/L (46-116) Total Protein 6.4 g/dL (6.4-8.2) 6.1 g/dL (6.4-8.2) Albumin 2.2 g/dL (3.4-5.0) 2.2 g/dL (3.4-5.0) Albumin/Globulin Ratio 0.5 (1.0-1.7) 0.6 (1.0-1.7) Lipase 452 U/L (73-393) 631 U/L (73-393) Glucose (Fingerstick) 149 mg/dL (70-99) 139 mg/dL (70-99) Reticulocyte Count (auto) 1.8 % (0.5-2.5) Iron Level 31 ug/dL (65-175) Total Iron Binding Capacity 279 ug/dL (250-450) Iron Saturation 11 % (15-34) Vitamin B12 Level 440 pg/mL (247-911) Thyroid Stimulating Hormone (TSH) 4.476 uIU/mL (0.358-3.74) Free Thyroxine 0.98 ng/dL (0.76-1.46) Thyroxine (T4) 5.6 ug/dL (4.5-12.0) Total Triiodothyronine 87 ng/dL (71-180) Hepatitis A IgM Antibody Nonreactive (Nonreactive) Hepatitis B Surface Antigen Nonreactive (Nonreactive) Hepatitis B Core IgM Antibody Nonreactive (Nonreactive) Hepatitis C IgG Antibody Nonreactive (Nonreactive) Test 05/27/18 08:30 05/27/18 11:52 05/27/18 16:41 05/27/18 20:15 Clostridium difficile Toxin B Gene Negative (Negative) Glucose (Fingerstick) 216 mg/dL (70-99) 152 mg/dL (70-99) 344 mg/dL (70-99) Test 05/27/18 21:05 05/28/18 06:30 05/28/18 07:48 Vancomycin Level Trough 7.4 mcg/mL (10.0-20.0) Vancomycin Last Dose Date 05/26/18 Vancomycin Last Dose Time 2200 Creatinine 1.0 mg/dL (0.7-1.3) Estimated GFR (Cockcroft-Gault) 71.7 Glucose (Fingerstick) 175 mg/dL (70-99) Laboratory Tests Test 05/27/18 08:30 05/27/18 11:52 05/27/18 16:41 05/27/18 20:15 Clostridium difficile Toxin B Gene Negative (Negative) Glucose (Fingerstick) 216 mg/dL (70-99) 152 mg/dL (70-99) 344 mg/dL (70-99) Test 05/27/18 21:05 05/28/18 06:30 05/28/18 07:48 Vancomycin Level Trough 7.4 mcg/mL (10.0-20.0) Vancomycin Last Dose Date 05/26/18 Vancomycin Last Dose Time 2200 Creatinine 1.0 mg/dL (0.7-1.3) Estimated GFR (Cockcroft-Gault) 71.7 Glucose (Fingerstick) 175 mg/dL (70-99) Problem List Problems Medical Problems: (1) Hyperglycemia Status: Acute (2) Hyperkalemia Status: Acute (3) Severe sepsis Status: Acute Assessment/Plan supportive care LUIZA JOHNSON MD 05/28/18 0833: SURGICAL PROGRESS NOTE Assessment/Plan Pt seen and examined. Agree with Ms. Newberry's note Pt without c/o, stefany reg diet abd soft, Nd, NTTP, ostomy fxn appears clinically improved, OK to work on D/c planning tachycardia improved, appreciate cards f/u in a few weeks to work towards ostomy takedown. DAYNE NEWBERRY APRN May 28, 2018 08:10 LUIZA JOHNSON MD May 28, 2018 08:33
[2018-05-28] MEDS: FERROUS SULFATE ORAL 300 MG/5 ML SOLUTION. PO SCH ×2 (08:29→17:06)
[2018-05-28] MEDS: ASPIRIN ENTERIC COATED 81 MG TABLET.DR. PO SCH (08:30)
[2018-05-28] MEDS: INSULIN LISPRO 300 UNITS/3 ML INSULN.PEN. SQ SCH ×3 (08:34→17:06)
[2018-05-28] MEDS: LACTOBACILLUS RHAMNOSUS GG 1 CAPSULE. PO SCH ×2 (09:17→20:51)
[2018-05-28] MEDS: FAMOTIDINE 20 MG TABLET. PO SCH (09:17)
[2018-05-28] MEDS: TICAGRELOR 90 MG TABLET. PO SCH ×2 (09:18→20:50)
[2018-05-28] MEDS: METOPROLOL TART IMMED RELEASE 25 MG TABLET. PO SCH ×2 (09:18→20:50)
--- NOTE | 2018-05-28 10:38 | PDOC ---
Objective: Objective: Reviewed w/ RN - eating well, no c/o pain, stable (watery) ostomy output. Vital Signs: Vital Signs Date Time Temp Pulse Resp B/P (MAP) Pulse Ox O2 Delivery O2 Flow Rate FiO2 05/28/18 09:18 123 116/67 05/28/18 07:00 97.7 18 97 Room Air 97.7 Labs: Laboratory Tests Test 05/27/18 11:52 05/27/18 16:41 05/27/18 20:15 05/27/18 21:05 Glucose (Fingerstick) 216 mg/dL 152 mg/dL 344 mg/dL Vancomycin Level Trough 7.4 mcg/mL Vancomycin Last Dose Date 05/26/18 Vancomycin Last Dose Time 2200 Test 05/28/18 06:30 05/28/18 07:48 Creatinine 1.0 mg/dL Estimated GFR (Cockcroft-Gault) 71.7 Procalcitonin < 0.10 ng/mL Glucose (Fingerstick) 175 mg/dL PE: GEN: NAD NEURO/PSYCH: sleeping, not awakened A/P: Recent sigmoid and ileocolic resection w/ ileostomy, LIAM, drainage of abscess Chronic anemia, transaminitis, mildly elevated lipase, 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 Note plans to think about discharge and follow-up w/ surgery for ostomy takedown. EMILY KNIGHT May 28, 2018 10:38
[2018-05-28 11:00] VITALS: BP 92/69
[2018-05-28 11:10] LABS: CALCIUM 8.4 mg/dL (8.5-10.1); CREATININE 0.9 mg/dL (0.7-1.3); POTASSIUM 4.3 mmol/L (3.5-5.1)
[2018-05-28] MEDS: fentaNYL PF VIAL 100 MCG/2 ML VIAL IV PRN ×3 (12:48→22:41)
--- NOTE | 2018-05-28 14:00 | NUR ---
This nurse taking over for care of pt. Report obtained from MELINDA Mejia and MELINDA Castro. This nurse to continue care along with MELINDA Castro.
[2018-05-28 15:00] VITALS: BP 110/66
--- NOTE | 2018-05-28 15:30 | NUR ---
SW following. Discussed with RN, SW faxed updates to [facility] (ph: [phone], fax: [phone]). RN notified. SW will continue to follow.
--- NOTE | 2018-05-28 16:22 | NUR ---
Wound/Ostomy Care Pt seen for Ostomy care after assessing bag prior to [facility] leaving for the weekend. There is a small amount of dried stool on edge of outer bag indicating bag was leaking at some point. Bag removed, skin cleaned with wet washcloths, pt continues to have a large area of irritated, reddened skin with a small denuded area around the stoma. Skin prepped, then stoma powder applied, then a 4" ostomy ring applied to peristoma, then a 1 piece convex bag placed over stoma. No leakage noted, pt received pain medication during the procedure but had a moderate amount of pain. Step by step photographs taken during the bag change, per pt and 's request for reference, given to patient. Please call wound pager over the weekend with any problems, and [facility] will f/u on Thursday. Addendum: 05/28/18 at 1626 by Lizbeth Gordon RN Assisted pt with gown and pants change after procedure.
--- NOTE | 2018-05-28 16:54 | NUR ---
Spoke with Dr. Beltran regarding diabetic home meds. Dr. Beltran wants to continue sliding scale and will re evaluate in the am /. Will notify telephone lineworker of the plan care.
--- NOTE | 2018-05-28 17:37 | PN ---
DATE: 05/28/2018 SUBJECTIVE: The patient is resting, slightly propped up in bed, in no apparent distress. Awake, alert. On questioning him, he denied any complaint. The nursing staff did not voice any concern and stated that he had an uneventful night. OBJECTIVE: GENERAL: When I examined him, he looked pale, cachectic, but no jaundice, cyanosis or thyromegaly. No jugular venous distension. No lower limb edema. VITAL SIGNS: His heart rate continued to be somewhat high at 123, blood pressure was 116/67, temperature was 97.7, respiratory rate was 18 and oxygen saturation was 97%. HEAD, EYES, EARS, NOSE AND THROAT: Showed normocephalic, atraumatic. NECK: Supple. HEART: Showed normal first and second heart sounds. No gallop, rub or murmur. CHEST: Clear to auscultation. No crepitation or rhonchi. ABDOMEN: Distended, soft, nontender. No guarding or rigidity. No organomegaly. All hernial orifices intact. Bowel sounds normal. NEUROLOGIC: He was awake, alert, responding appropriately. All cranial nerves intact. He moves extremities without difficulty. He ambulates without assistance or assistive devices. ASSESSMENT AND PLAN: 1. Sepsis, the source of which is not very clear. The patient continued to be on antibiotic and seemed to be responding very well. His blood cultures so far showed no growth. 2. Hypokalemia and hyponatremia, both resolved. 3. Acute kidney injury, resolved. His creatinine is down from 1.5 to 0.9. 4. Transaminitis, improving gradually. 5. Acute pancreatitis. Serum lipase has risen, was 1000 and dropped down to 450 and up to 630. Today, his labs are still pending at the time of this dictation. 6. Persistent sinus tachycardia. His limited echocardiogram showed that the patient has systolic congestive heart failure, ejection fraction of 40% and global hypokinesis. PLAN: My plan is to obviously continue with IV antibiotic in the form of vancomycin and Zosyn. Continue with famotidine, continue to monitor his blood sugar, adjust insulin as needed. I will order physical and occupational therapy to evaluate and treat and obviously, once the decision is made to switch him to oral antibiotics, he can be discharged back to [place]. CARL HENDERSON MD DR: Shayy JOB#: [id number] / [id number]
[2018-05-28 19:00] VITALS: BP 121/61
--- NOTE | 2018-05-28 19:18 | NUR ---
I agree with MELINDA Castrotechnical aid and assessments.
[2018-05-28] MEDS: INSULIN GLARGINE 300 UNITS/3 ML INSULN.PEN. SQ SCH (22:44)
[2018-05-28 23:00] VITALS: BP 122/71
[2018-05-29 03:00] VITALS: BP 114/68
[2018-05-29] MEDS: PIPERACILLIN/TAZOBACTAM 3.375 GM in IV NORMAL SALINE 50ML 50 ML IV SCH ×3 (05:02→17:01)
[2018-05-29] MEDS: fentaNYL PF VIAL 100 MCG/2 ML VIAL IV PRN ×4 (05:06→22:30)
[2018-05-29 05:55] LABS: HEMATOCRIT 31.5 % (39.0-53.0); HEMOGLOBIN 10.3 g/dL (13.0-17.5); RED BLOOD COUNT 3.59 x10^6/uL (4.30-5.70); RED CELL DISTRIBUTION WIDTH 15.8 % (11.5-14.5); WHITE BLOOD COUNT 13.5 x10^3/uL (4.0-11.0)
[2018-05-29 06:15] LABS: ALBUMIN 2.5 g/dL (3.4-5.0); ALBUMIN/GLOBULIN RATIO 0.6 (1.0-1.7); CALCIUM 8.7 mg/dL (8.5-10.1); GFR 71.7; POTASSIUM 4.2 mmol/L (3.5-5.1); TOTAL BILIRUBIN 0.2 mg/dL (0.2-1.0); TOTAL PROTEIN 6.8 g/dL (6.4-8.2)
[2018-05-29 07:00] VITALS: BP 106/65
[2018-05-29] MEDS: INSULIN LISPRO 300 UNITS/3 ML INSULN.PEN. SQ SCH ×3 (08:00→17:04)
[2018-05-29] MEDS: ASPIRIN ENTERIC COATED 81 MG TABLET.DR. PO SCH (08:19)
[2018-05-29] MEDS: LACTOBACILLUS RHAMNOSUS GG 1 CAPSULE. PO SCH ×2 (08:19→20:20)
[2018-05-29] MEDS: TICAGRELOR 90 MG TABLET. PO SCH ×2 (08:19→20:20)
[2018-05-29] MEDS: FERROUS SULFATE ORAL 300 MG/5 ML SOLUTION. PO SCH ×2 (08:19→17:01)
[2018-05-29] MEDS: METOPROLOL TART IMMED RELEASE 25 MG TABLET. PO SCH ×2 (08:25→20:20)
[2018-05-29] MEDS: FAMOTIDINE 20 MG TABLET. PO SCH (08:25)
[2018-05-29 11:00] VITALS: BP 110/67
--- NOTE | 2018-05-29 11:06 | PDOC ---
Infectious Disease Note Subjective Subjective Feeling alright, wants to get cleaned up Eating Denies N/V/F/C/S/SOA ROS ROS per HPI Vital Sign Vital Signs Vital Signs Date Time Temp Pulse Resp B/P (MAP) Pulse Ox O2 Delivery O2 Flow Rate FiO2 05/29/18 08:25 120 106/65 05/29/18 07:00 97.8 18 97 Room Air 97.8 Physical Exam PHYSICAL EXAM GENERAL: Sitting on the side of the bed, alert, NAD HEENT: Pupils equal and reactive. Oral cavity, pharynx clear, dentures, no thrush NECK: Supple, no JVD. LUNGS: Clear to auscultation, HEART: S1, S2. ABDOMEN: Mildly distended, soft, ostomy bag sealed; midline incision, KRISTINA little red, no drainage EXTREMITIES: No clubbing, cyanosis or gross edema. SKIN: Warm to touch without signs of rash. NEUROLOGIC: Alert, nonfocal and appropriate. Labs Lab Laboratory Tests Test 05/28/18 11:51 05/28/18 19:52 05/29/18 05:20 05/29/18 07:49 Glucose (Fingerstick) 204 mg/dL (70-99) 308 mg/dL (70-99) 141 mg/dL (70-99) White Blood Count 13.5 x10^3/uL (4.0-11.0) Red Blood Count 3.59 x10^6/uL (4.30-5.70) Hemoglobin 10.3 g/dL (13.0-17.5) Hematocrit 31.5 % (39.0-53.0) Mean Corpuscular Volume 88 fL (79-100) Mean Corpuscular Hemoglobin 29 pg (25-35) Mean Corpuscular Hemoglobin Concent 33 g/dL (31-37) Red Cell Distribution Width 15.8 % (11.5-14.5) Platelet Count 773 x10^3/uL (140-400) Sodium Level 137 mmol/L (136-145) Potassium Level 4.2 mmol/L (3.5-5.1) Chloride Level 103 mmol/L (98-107) Carbon Dioxide Level 23 mmol/L (21-32) Anion Gap 11 (6-14) Blood Urea Nitrogen 14 mg/dL (8-26) Creatinine 1.0 mg/dL (0.7-1.3) Estimated GFR (Cockcroft-Gault) 71.7 BUN/Creatinine Ratio 14 (6-20) Glucose Level 151 mg/dL (70-99) Calcium Level 8.7 mg/dL (8.5-10.1) Total Bilirubin 0.2 mg/dL (0.2-1.0) Aspartate Amino Transf (AST/SGOT) 38 U/L (15-37) Alanine Aminotransferase (ALT/SGPT) 86 U/L (16-63) Alkaline Phosphatase 96 U/L (46-116) Total Protein 6.8 g/dL (6.4-8.2) Albumin 2.5 g/dL (3.4-5.0) Albumin/Globulin Ratio 0.6 (1.0-1.7) Lipase 556 U/L (73-393) Micro Microbiology 05/26/18 Blood Culture - Preliminary, Resulted NO GROWTH AFTER 3 DAYS Objective Assessment Leucocytosis, C diff PCR neg, 05/27 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 Recurrent abdominal abscesses s/p drain on 05/11 with growth of mixed mireya, yeast and E. coli (R quinolones, amp, cefuroxime) - h/o IR drain on 04/21 with growth of Bacteroides, E. coli (R quinolones), Klebsiella and (yeast on GS) Transaminitis with high lipase Lactic acidosis, better DENNIS better DM poorly controlled s/p cystoscopy with bilateral stent placement, 05/15. Urine c/s 05/17 neg Chronic anemia GERD S/p cholecystectomy CAD Plan Plan of Care Cont Zosyn will monitor trend of WBC cont ostomy care f/u labs and cults d/w RN Patient seen, examined, I agree with above. Assessment and plan was coformulated with SENIOR NETWORK ENGINEER. LIDIA GARCIAS APRN May 29, 2018 11:06 LG DUMONT MD May 29, 2018 15:21
--- NOTE | 2018-05-29 11:40 | PDOC ---
SURGICAL PROGRESS NOTE Subjective Duane for Dr Frey no new complaints Vital Signs Vital Signs Date Time Temp Pulse Resp B/P (MAP) Pulse Ox O2 Delivery O2 Flow Rate FiO2 05/29/18 08:25 120 106/65 05/29/18 07:00 97.8 18 97 Room Air 97.8 I&O Intake and Output 05/29/18 06:59 Output Total 1700 ml Balance -1700 ml Output Urine Total 350 ml Stool Total 1350 ml PATIENT HAS A NAPIER: No General: Alert, Oriented X3, No acute distress Abdomen: Soft, Other (ostomy bag on) Labs Laboratory Tests Test 05/27/18 11:52 05/27/18 16:41 05/27/18 20:15 05/27/18 21:05 Glucose (Fingerstick) 216 mg/dL (70-99) 152 mg/dL (70-99) 344 mg/dL (70-99) Vancomycin Level Trough 7.4 mcg/mL (10.0-20.0) Vancomycin Last Dose Date 05/26/18 Vancomycin Last Dose Time 2200 Test 05/28/18 06:30 05/28/18 07:48 05/28/18 11:51 05/28/18 19:52 Sodium Level 137 mmol/L (136-145) Potassium Level 4.3 mmol/L (3.5-5.1) Chloride Level 102 mmol/L (98-107) Carbon Dioxide Level 23 mmol/L (21-32) Anion Gap 12 (6-14) Blood Urea Nitrogen 10 mg/dL (8-26) Creatinine 0.9 mg/dL (0.7-1.3) Estimated GFR (Cockcroft-Gault) 81.0 Glucose Level 175 mg/dL (70-99) Calcium Level 8.4 mg/dL (8.5-10.1) Lipase 677 U/L (73-393) Procalcitonin < 0.10 ng/mL (0.00-0.10) Glucose (Fingerstick) 175 mg/dL (70-99) 204 mg/dL (70-99) 308 mg/dL (70-99) Test 05/29/18 05:20 05/29/18 07:49 White Blood Count 13.5 x10^3/uL (4.0-11.0) Red Blood Count 3.59 x10^6/uL (4.30-5.70) Hemoglobin 10.3 g/dL (13.0-17.5) Hematocrit 31.5 % (39.0-53.0) Mean Corpuscular Volume 88 fL (79-100) Mean Corpuscular Hemoglobin 29 pg (25-35) Mean Corpuscular Hemoglobin Concent 33 g/dL (31-37) Red Cell Distribution Width 15.8 % (11.5-14.5) Platelet Count 773 x10^3/uL (140-400) Sodium Level 137 mmol/L (136-145) Potassium Level 4.2 mmol/L (3.5-5.1) Chloride Level 103 mmol/L (98-107) Carbon Dioxide Level 23 mmol/L (21-32) Anion Gap 11 (6-14) Blood Urea Nitrogen 14 mg/dL (8-26) Creatinine 1.0 mg/dL (0.7-1.3) Estimated GFR (Cockcroft-Gault) 71.7 BUN/Creatinine Ratio 14 (6-20) Glucose Level 151 mg/dL (70-99) Calcium Level 8.7 mg/dL (8.5-10.1) Total Bilirubin 0.2 mg/dL (0.2-1.0) Aspartate Amino Transf (AST/SGOT) 38 U/L (15-37) Alanine Aminotransferase (ALT/SGPT) 86 U/L (16-63) Alkaline Phosphatase 96 U/L (46-116) Total Protein 6.8 g/dL (6.4-8.2) Albumin 2.5 g/dL (3.4-5.0) Albumin/Globulin Ratio 0.6 (1.0-1.7) Lipase 556 U/L (73-393) Glucose (Fingerstick) 141 mg/dL (70-99) Laboratory Tests Test 05/28/18 11:51 05/28/18 19:52 05/29/18 05:20 05/29/18 07:49 Glucose (Fingerstick) 204 mg/dL (70-99) 308 mg/dL (70-99) 141 mg/dL (70-99) White Blood Count 13.5 x10^3/uL (4.0-11.0) Red Blood Count 3.59 x10^6/uL (4.30-5.70) Hemoglobin 10.3 g/dL (13.0-17.5) Hematocrit 31.5 % (39.0-53.0) Mean Corpuscular Volume 88 fL (79-100) Mean Corpuscular Hemoglobin 29 pg (25-35) Mean Corpuscular Hemoglobin Concent 33 g/dL (31-37) Red Cell Distribution Width 15.8 % (11.5-14.5) Platelet Count 773 x10^3/uL (140-400) Sodium Level 137 mmol/L (136-145) Potassium Level 4.2 mmol/L (3.5-5.1) Chloride Level 103 mmol/L (98-107) Carbon Dioxide Level 23 mmol/L (21-32) Anion Gap 11 (6-14) Blood Urea Nitrogen 14 mg/dL (8-26) Creatinine 1.0 mg/dL (0.7-1.3) Estimated GFR (Cockcroft-Gault) 71.7 BUN/Creatinine Ratio 14 (6-20) Glucose Level 151 mg/dL (70-99) Calcium Level 8.7 mg/dL (8.5-10.1) Total Bilirubin 0.2 mg/dL (0.2-1.0) Aspartate Amino Transf (AST/SGOT) 38 U/L (15-37) Alanine Aminotransferase (ALT/SGPT) 86 U/L (16-63) Alkaline Phosphatase 96 U/L (46-116) Total Protein 6.8 g/dL (6.4-8.2) Albumin 2.5 g/dL (3.4-5.0) Albumin/Globulin Ratio 0.6 (1.0-1.7) Lipase 556 U/L (73-393) Problem List Problems Medical Problems: (1) Hyperglycemia Status: Acute (2) Hyperkalemia Status: Acute (3) Severe sepsis Status: Acute Assessment/Plan s/p ileostomy continue supportive care no new surgical recs AMBROSE BARNES MD May 29, 2018 11:40
[2018-05-29 15:00] VITALS: BP 109/65
[2018-05-29] MEDS ORDERED: CALCIUM CARBONATE 500 MG TAB.CHEW PO PRN (16:45)
[2018-05-29 19:00] VITALS: BP 104/47
--- NOTE | 2018-05-29 19:31 | PN ---
DATE: 05/29/2018 SUBJECTIVE: The patient is sitting slightly propped up in bed, awake, alert. On questioning him, he still continued to have some pain around his ostomy bag and denied any other complaints, in particular denied any nausea or vomiting. Denied any chills, rigors or fever. He is tolerating his food well. OBJECTIVE: GENERAL: On examining him, he was pale, cachectic, but no jaundice, cyanosis, or thyromegaly. No jugular venous distension. No limb edema. VITAL SIGNS: His heart rate was 108, blood pressure 114/68, temperature was 98.7, respiratory rate was 18 and oxygen saturation was 99% on room air. HEAD, EYES, EARS, NOSE AND THROAT: Showed normocephalic, atraumatic. NECK: Supple. HEART: Showed normal first and second sounds. No gallop, rub or murmur. CHEST: Clear to auscultation. No crepitation or rhonchi. ABDOMEN: Distended, soft, nontender. Has an ileostomy in the right lower quadrant. There is no tenderness. No guarding or rigidity. No organomegaly. Hernial orifice intact. Bowel sounds normal. The midline surgical incision is healing nicely with no redness, tenderness or discharge. NEUROLOGIC: He is awake, alert, at times confused. All cranial nerves intact. He moves extremities without difficulty. His intake over the last 24 hours was 640, output was 2350. LABORATORY DATA: As of this morning, his serum sodium was 137, potassium 4.2, chloride 103, bicarbonate 23, anion gap of 11, BUN 14, creatinine 1, estimated GFR was 72 mL per minute, his glucose 151, calcium was 8.7. His total bilirubin and alkaline phosphatase normal. AST, ALT slightly elevated, although trending down. His total protein was 6.8, albumin 2.5. Serum lipase continued to be slightly elevated 556. His TSH, free T4, total T4 and total T3 were normal. Serum iron was 31, TIBC was 279 and iron saturation was 11. So far, all his blood cultures are negative. ASSESSMENT: 1. Sepsis, the source of which is not clear. The patient continued to be on antibiotic. His vancomycin was discontinued. He seemed to be responding. Clinically, he is afebrile, although for some reason, white cell count went up again yesterday to 13,500. 2. Hypokalemia and hyponatremia, both resolved. 3. Acute kidney injury, resolved. His creatinine came down from 1.5 to 1. 4. Transaminitis, improving gradually. In fact, his alkaline phosphatase is normal today. His AST and ALT are slightly elevated, but trending down. 5. Acute pancreatitis. Serum lipase is around 550. 6. Persistent sinus tachycardia, which he has a limited echocardiogram showing that the patient has systolic congestive heart failure, ejection fraction 40% and global hypokinesis. His thyroid functions are all normal. PLAN: To continue with IV antibiotic. Continue famotidine. Continue to monitor his blood sugar and adjust insulin as needed. Start the process of physical and occupational therapy. I will wait for the Infectious Disease decision to see whether he can be switched to oral antibiotic. Otherwise, continue with IV antibiotic over the weekend and discharge him back to [facility] on Thursday morning. CARL HENDERSON MD DR: BRITTNY/gloria JOB#: [id number] / [id number]
[2018-05-29] MEDS: LINEZOLID 600 MG TABLET PO SCH (20:20)
[2018-05-29] MEDS ORDERED: INSULIN LISPRO 300 UNITS/3 ML INSULN.PEN. SQ ONE (21:30)
[2018-05-29] MEDS: INSULIN GLARGINE 300 UNITS/3 ML INSULN.PEN. SQ SCH (21:37)
[2018-05-29 23:00] VITALS: BP 119/68
[2018-05-30] MEDS: PIPERACILLIN/TAZOBACTAM 3.375 GM in IV NORMAL SALINE 50ML 50 ML IV SCH ×4 (00:56→16:27)
[2018-05-30 03:00] VITALS: BP 115/70
[2018-05-30 05:30] LABS: BASO # 0.1 x10^3/uL (0.0-0.2); BASO % 1 % (0-3); EOS # 0.6 x10^3/uL (0.0-0.7); EOS % 5 % (0-3); HEMATOCRIT 31.6 % (39.0-53.0); HEMOGLOBIN 10.7 g/dL (13.0-17.5); LYMPH % 14 % (24-48); MEAN CORPUSCULAR HEMOGLOBIN 30 pg (25-35); MEAN CORPUSCULAR HGB CONC 34 g/dL (31-37); MEAN CORPUSCULAR VOLUME 87 fL (79-100); MONO % 7 % (0-9); NEUT # 10.2 x10^3uL (1.8-7.7); NEUT % 73 % (31-73); PLATELET COUNT 845 x10^3/uL (140-400); RED BLOOD COUNT 3.61 x10^6/uL (4.30-5.70); RED CELL DISTRIBUTION WIDTH 16.2 % (11.5-14.5)
[2018-05-30 05:50] LABS: CALCIUM 9.1 mg/dL (8.5-10.1); GFR 71.7; POTASSIUM 4.1 mmol/L (3.5-5.1)
[2018-05-30 07:00] VITALS: BP_SYST 141; BP_SYST 143; BP_DIAS 53; BP_DIAS 64
[2018-05-30] MEDS: INSULIN LISPRO 300 UNITS/3 ML INSULN.PEN. SQ SCH ×3 (07:57→17:07)
[2018-05-30] MEDS: FAMOTIDINE 20 MG TABLET. PO SCH (08:45)
[2018-05-30] MEDS: LINEZOLID 600 MG TABLET PO SCH ×2 (08:45→20:40)
[2018-05-30] MEDS: LACTOBACILLUS RHAMNOSUS GG 1 CAPSULE. PO SCH ×2 (08:45→20:40)
[2018-05-30] MEDS: TICAGRELOR 90 MG TABLET. PO SCH ×2 (08:45→20:40)
[2018-05-30] MEDS: FERROUS SULFATE ORAL 300 MG/5 ML SOLUTION. PO SCH ×2 (08:45→17:05)
[2018-05-30] MEDS: METOPROLOL TART IMMED RELEASE 25 MG TABLET. PO SCH ×2 (08:47→20:40)
[2018-05-30] MEDS: ASPIRIN ENTERIC COATED 81 MG TABLET.DR. PO SCH (08:48)
--- NOTE | 2018-05-30 09:23 | PDOC ---
SURGICAL PROGRESS NOTE Subjective resting comfortably no new c/o Vital Signs Vital Signs Date Time Temp Pulse Resp B/P (MAP) Pulse Ox O2 Delivery O2 Flow Rate FiO2 05/30/18 08:47 63 143/53 05/30/18 07:00 98.8 20 99 Room Air 98.8 I&O Intake and Output 05/30/18 07:00 Intake Total 320 ml Output Total 1975 ml Balance -1655 ml Intake Oral 200 ml Other 120 ml Stool Total 1425 ml Urine/Stool Mix 550 ml # Voids 2 PATIENT HAS A NAPIER: No General: Alert, Oriented X3, Cooperative, No acute distress Abdomen: Soft Labs Laboratory Tests Test 05/28/18 11:51 05/28/18 19:52 05/29/18 05:20 05/29/18 07:49 Glucose (Fingerstick) 204 mg/dL (70-99) 308 mg/dL (70-99) 141 mg/dL (70-99) White Blood Count 13.5 x10^3/uL (4.0-11.0) Red Blood Count 3.59 x10^6/uL (4.30-5.70) Hemoglobin 10.3 g/dL (13.0-17.5) Hematocrit 31.5 % (39.0-53.0) Mean Corpuscular Volume 88 fL (79-100) Mean Corpuscular Hemoglobin 29 pg (25-35) Mean Corpuscular Hemoglobin Concent 33 g/dL (31-37) Red Cell Distribution Width 15.8 % (11.5-14.5) Platelet Count 773 x10^3/uL (140-400) Sodium Level 137 mmol/L (136-145) Potassium Level 4.2 mmol/L (3.5-5.1) Chloride Level 103 mmol/L (98-107) Carbon Dioxide Level 23 mmol/L (21-32) Anion Gap 11 (6-14) Blood Urea Nitrogen 14 mg/dL (8-26) Creatinine 1.0 mg/dL (0.7-1.3) Estimated GFR (Cockcroft-Gault) 71.7 BUN/Creatinine Ratio 14 (6-20) Glucose Level 151 mg/dL (70-99) Calcium Level 8.7 mg/dL (8.5-10.1) Total Bilirubin 0.2 mg/dL (0.2-1.0) Aspartate Amino Transf (AST/SGOT) 38 U/L (15-37) Alanine Aminotransferase (ALT/SGPT) 86 U/L (16-63) Alkaline Phosphatase 96 U/L (46-116) Total Protein 6.8 g/dL (6.4-8.2) Albumin 2.5 g/dL (3.4-5.0) Albumin/Globulin Ratio 0.6 (1.0-1.7) Lipase 556 U/L (73-393) Test 05/29/18 12:08 05/29/18 16:46 05/29/18 20:37 05/30/18 04:53 Glucose (Fingerstick) 202 mg/dL (70-99) 236 mg/dL (70-99) 361 mg/dL (70-99) White Blood Count 14.0 x10^3/uL (4.0-11.0) Red Blood Count 3.61 x10^6/uL (4.30-5.70) Hemoglobin 10.7 g/dL (13.0-17.5) Hematocrit 31.6 % (39.0-53.0) Mean Corpuscular Volume 87 fL (79-100) Mean Corpuscular Hemoglobin 30 pg (25-35) Mean Corpuscular Hemoglobin Concent 34 g/dL (31-37) Red Cell Distribution Width 16.2 % (11.5-14.5) Platelet Count 845 x10^3/uL (140-400) Neutrophils (%) (Auto) 73 % (31-73) Lymphocytes (%) (Auto) 14 % (24-48) Monocytes (%) (Auto) 7 % (0-9) Eosinophils (%) (Auto) 5 % (0-3) Basophils (%) (Auto) 1 % (0-3) Neutrophils # (Auto) 10.2 x10^3uL (1.8-7.7) Lymphocytes # (Auto) 2.0 x10^3/uL (1.0-4.8) Monocytes # (Auto) 1.0 x10^3/uL (0.0-1.1) Eosinophils # (Auto) 0.6 x10^3/uL (0.0-0.7) Basophils # (Auto) 0.1 x10^3/uL (0.0-0.2) Sodium Level 139 mmol/L (136-145) Potassium Level 4.1 mmol/L (3.5-5.1) Chloride Level 104 mmol/L (98-107) Carbon Dioxide Level 22 mmol/L (21-32) Anion Gap 13 (6-14) Blood Urea Nitrogen 20 mg/dL (8-26) Creatinine 1.0 mg/dL (0.7-1.3) Estimated GFR (Cockcroft-Gault) 71.7 Glucose Level 149 mg/dL (70-99) Calcium Level 9.1 mg/dL (8.5-10.1) Lipase 631 U/L (73-393) Test 05/30/18 07:51 Glucose (Fingerstick) 163 mg/dL (70-99) Laboratory Tests Test 05/29/18 12:08 05/29/18 16:46 05/29/18 20:37 05/30/18 04:53 Glucose (Fingerstick) 202 mg/dL (70-99) 236 mg/dL (70-99) 361 mg/dL (70-99) White Blood Count 14.0 x10^3/uL (4.0-11.0) Red Blood Count 3.61 x10^6/uL (4.30-5.70) Hemoglobin 10.7 g/dL (13.0-17.5) Hematocrit 31.6 % (39.0-53.0) Mean Corpuscular Volume 87 fL (79-100) Mean Corpuscular Hemoglobin 30 pg (25-35) Mean Corpuscular Hemoglobin Concent 34 g/dL (31-37) Red Cell Distribution Width 16.2 % (11.5-14.5) Platelet Count 845 x10^3/uL (140-400) Neutrophils (%) (Auto) 73 % (31-73) Lymphocytes (%) (Auto) 14 % (24-48) Monocytes (%) (Auto) 7 % (0-9) Eosinophils (%) (Auto) 5 % (0-3) Basophils (%) (Auto) 1 % (0-3) Neutrophils # (Auto) 10.2 x10^3uL (1.8-7.7) Lymphocytes # (Auto) 2.0 x10^3/uL (1.0-4.8) Monocytes # (Auto) 1.0 x10^3/uL (0.0-1.1) Eosinophils # (Auto) 0.6 x10^3/uL (0.0-0.7) Basophils # (Auto) 0.1 x10^3/uL (0.0-0.2) Sodium Level 139 mmol/L (136-145) Potassium Level 4.1 mmol/L (3.5-5.1) Chloride Level 104 mmol/L (98-107) Carbon Dioxide Level 22 mmol/L (21-32) Anion Gap 13 (6-14) Blood Urea Nitrogen 20 mg/dL (8-26) Creatinine 1.0 mg/dL (0.7-1.3) Estimated GFR (Cockcroft-Gault) 71.7 Glucose Level 149 mg/dL (70-99) Calcium Level 9.1 mg/dL (8.5-10.1) Lipase 631 U/L (73-393) Test 05/30/18 07:51 Glucose (Fingerstick) 163 mg/dL (70-99) Problem List Problems Medical Problems: (1) Hyperglycemia Status: Acute (2) Hyperkalemia Status: Acute (3) Severe sepsis Status: Acute Assessment/Plan no new surgical issues as per AMBROSE Castillo MD May 30, 2018 09:23
[2018-05-30 11:00] VITALS: BP 105/62
--- NOTE | 2018-05-30 11:01 | PDOC ---
Infectious Disease Note Subjective Subjective Feeling alright, mild abdominal discomfort Denies N/V/F/C/SOA ROS ROS per HPI Vital Sign Vital Signs Vital Signs Date Time Temp Pulse Resp B/P (MAP) Pulse Ox O2 Delivery O2 Flow Rate FiO2 05/30/18 08:47 63 143/53 05/30/18 07:00 98.8 20 99 Room Air 98.8 Physical Exam PHYSICAL EXAM GENERAL: Propped up in bed, alert, relaxed appearance HEENT: Pupils equal and reactive. Oral cavity, pharynx clear, dentures, no thrush NECK: Supple, no JVD. LUNGS: Clear to auscultation, HEART: S1, S2. ABDOMEN: Mildly distended, soft, ostomy bag sealed; midline incision, well- approx, [place], less red, no drainage EXTREMITIES: No clubbing, cyanosis or gross edema. SKIN: Warm to touch without signs of rash. NEUROLOGIC: Alert, nonfocal and appropriate. Labs Lab Laboratory Tests Test 05/29/18 12:08 05/29/18 16:46 05/29/18 20:37 05/30/18 04:53 Glucose (Fingerstick) 202 mg/dL (70-99) 236 mg/dL (70-99) 361 mg/dL (70-99) White Blood Count 14.0 x10^3/uL (4.0-11.0) Red Blood Count 3.61 x10^6/uL (4.30-5.70) Hemoglobin 10.7 g/dL (13.0-17.5) Hematocrit 31.6 % (39.0-53.0) Mean Corpuscular Volume 87 fL (79-100) Mean Corpuscular Hemoglobin 30 pg (25-35) Mean Corpuscular Hemoglobin Concent 34 g/dL (31-37) Red Cell Distribution Width 16.2 % (11.5-14.5) Platelet Count 845 x10^3/uL (140-400) Neutrophils (%) (Auto) 73 % (31-73) Lymphocytes (%) (Auto) 14 % (24-48) Monocytes (%) (Auto) 7 % (0-9) Eosinophils (%) (Auto) 5 % (0-3) Basophils (%) (Auto) 1 % (0-3) Neutrophils # (Auto) 10.2 x10^3uL (1.8-7.7) Lymphocytes # (Auto) 2.0 x10^3/uL (1.0-4.8) Monocytes # (Auto) 1.0 x10^3/uL (0.0-1.1) Eosinophils # (Auto) 0.6 x10^3/uL (0.0-0.7) Basophils # (Auto) 0.1 x10^3/uL (0.0-0.2) Sodium Level 139 mmol/L (136-145) Potassium Level 4.1 mmol/L (3.5-5.1) Chloride Level 104 mmol/L (98-107) Carbon Dioxide Level 22 mmol/L (21-32) Anion Gap 13 (6-14) Blood Urea Nitrogen 20 mg/dL (8-26) Creatinine 1.0 mg/dL (0.7-1.3) Estimated GFR (Cockcroft-Gault) 71.7 Glucose Level 149 mg/dL (70-99) Calcium Level 9.1 mg/dL (8.5-10.1) Lipase 631 U/L (73-393) Test 05/30/18 07:51 Glucose (Fingerstick) 163 mg/dL (70-99) Micro 05/26/18 Blood Culture - Preliminary, Resulted NO GROWTH AFTER 4 DAYS Objective Assessment Leukocytosis, C diff PCR neg, 05/27 - trending upwards 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 Recurrent abdominal abscesses s/p drain on 05/11 with growth of mixed mireya, yeast and E. coli (R quinolones, amp, cefuroxime) - h/o IR drain on 04/21 with growth of Bacteroides, E. coli (R quinolones), Klebsiella and (yeast on GS) Transaminitis with high lipase Lactic acidosis, better DENNIS better DM poorly controlled s/p cystoscopy with bilateral stent placement, 05/15. Urine c/s 05/17 neg Chronic anemia GERD S/p cholecystectomy CAD Plan Plan of Care Cont Zosyn Continue Zyvox (05/29) add micafungin, d/w Dr. Gurwinder Dumont cont ostomy care CBC in am D/w Dr. Jesus Patient seen, examined, I agree with above. Assessment and plan was formulated with [employer] CONTROL TECHNICIAN. LIDIA GARCIAS APRN May 30, 2018 11:01 LG DUMONT MD May 30, 2018 14:34
[2018-05-30] MEDS ORDERED: TEMAZEPAM 7.5 MG CAPSULE PO PRN (13:45)
[2018-05-30 15:00] VITALS: BP 112/66
[2018-05-30] MEDS: fentaNYL PF VIAL 100 MCG/2 ML VIAL IV PRN ×2 (16:26→22:51)
[2018-05-30] MEDS: MICAFUNGIN 100 MG in IV DEXTROSE 5% 100ML 100 ML IV SCH (16:27)
[2018-05-30 19:30] VITALS: BP 108/63
[2018-05-30] MEDS: INSULIN GLARGINE 300 UNITS/3 ML INSULN.PEN. SQ SCH (20:57)
[2018-05-30] MEDS ORDERED: INSULIN LISPRO 300 UNITS/3 ML INSULN.PEN. SQ ONE (21:00)
[2018-05-30 23:00] VITALS: BP 113/76
[2018-05-31] MEDS: PIPERACILLIN/TAZOBACTAM 3.375 GM in IV NORMAL SALINE 50ML 50 ML IV SCH ×4 (00:26→18:59)
--- NOTE | 2018-05-31 01:28 | PN ---
DATE: 05/30/2018 SUBJECTIVE: The patient is sitting comfortably in his chair, in no apparent distress. He denied any nausea or vomiting. He does complain of some discomfort around his ileostomy, but generally is feeling much better. His appetite has improved, although he said he was unable to sleep last night. PHYSICAL EXAMINATION: GENERAL: When I examined him, he looked pale, cachectic, but no jaundice, cyanosis, or thyromegaly. No jugular venous distension. No lower limb edema. VITAL SIGNS: His heart rate was 63, blood pressure 143/53, temperature was 98.8, respiratory rate 20 and oxygen saturation was 99%. HEAD, EYES, EARS, NOSE AND THROAT: Normocephalic and atraumatic. NECK: Supple. HEART: Showed normal first and second heart sounds. No gallop, rub or murmur. CHEST: Clear to auscultation. No crepitation or rhonchi. 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 There is no tenderness. No guarding or rigidity. No organomegaly. All hernial orifices are intact. Bowel sounds normal. NEUROLOGIC: He was awake, alert and responding appropriately. All cranial nerves are intact. He moves extremities without difficulty. His intake over the last 24 hours was incompletely recorded and output was 1700. LABORATORY DATA: As of this morning, his white cell count is up to 14,000, hemoglobin 10, hematocrit 31, MCV 87, and platelet count of 845,000. His serum sodium was 139, potassium 4.1, chloride 104, bicarbonate 22, anion gap of 13, BUN 20, creatinine 1, estimated GFR was 72 mL per minute, his glucose 149, calcium was 9.1. Serum lipase continued to be elevated at 631. His blood cultures are so far negative after 4 days. ASSESSMENT: 1. Sepsis, the source of which is not clear. The patient continued to be on antibiotic. His vancomycin was discontinued. He has been afebrile; however, his white cell count is trending upward and today is 14,000. 2. Hypokalemia and hypernatremia have resolved. 3. Acute kidney injury, resolved. His creatinine came down from 1.5 to 1 mg. 4. Transaminitis, improving. His alkaline phosphatase has normalized. AST, ALT continued to be slightly elevated. 5. Acute pancreatitis. Her serum lipase continued to be slightly elevated at 631. 6. Persistent sinus tachycardia has resolved. In fact, his heart rate now is in the 60s. He was seen in consultation by the counter former and echocardiogram showed that ejection fraction was about 40% with global hypokinesis, thyroid function, however, was normal. PLAN: To continue with IV antibiotic. Continue with famotidine. Continue to monitor his blood sugar and adjust insulin as needed. CARL HENDERSON MD DR: BRITTNY/gloria JOB#: [id number] / [id number]
[2018-05-31 03:00] VITALS: BP 106/59
[2018-05-31] MEDS: fentaNYL PF VIAL 100 MCG/2 ML VIAL IV PRN ×4 (03:18→22:13)
[2018-05-31 05:47] LABS: BASO # 0.1 x10^3/uL (0.0-0.2); BASO % 1 % (0-3); EOS # 0.5 x10^3/uL (0.0-0.7); EOS % 4 % (0-3); HEMATOCRIT 33.5 % (39.0-53.0); HEMOGLOBIN 11.1 g/dL (13.0-17.5); LYMPH # 1.7 x10^3/uL (1.0-4.8); LYMPH % 15 % (24-48); MEAN CORPUSCULAR HEMOGLOBIN 29 pg (25-35); MEAN CORPUSCULAR HGB CONC 33 g/dL (31-37); MEAN CORPUSCULAR VOLUME 88 fL (79-100); MONO # 0.9 x10^3/uL (0.0-1.1); MONO % 8 % (0-9); NEUT # 8.6 x10^3uL (1.8-7.7); NEUT % 72 % (31-73); PLATELET COUNT 763 x10^3/uL (140-400); RED CELL DISTRIBUTION WIDTH 16.2 % (11.5-14.5); WHITE BLOOD COUNT 11.9 x10^3/uL (4.0-11.0)
[2018-05-31 05:50] LABS: ALBUMIN 2.5 g/dL (3.4-5.0); ALBUMIN/GLOBULIN RATIO 0.5 (1.0-1.7); GFR 71.7; POTASSIUM 4.4 mmol/L (3.5-5.1); TOTAL BILIRUBIN 0.3 mg/dL (0.2-1.0); TOTAL PROTEIN 7.2 g/dL (6.4-8.2)
[2018-05-31 07:00] VITALS: BP 100/58
[2018-05-31] MEDS: INSULIN LISPRO 300 UNITS/3 ML INSULN.PEN. SQ SCH ×3 (08:00→17:23)
[2018-05-31] MEDS: LACTOBACILLUS RHAMNOSUS GG 1 CAPSULE. PO SCH ×2 (08:16→21:27)
[2018-05-31] MEDS: FERROUS SULFATE ORAL 300 MG/5 ML SOLUTION. PO SCH ×2 (08:16→17:21)
[2018-05-31] MEDS: METOPROLOL TART IMMED RELEASE 25 MG TABLET. PO SCH ×2 (08:17→21:27)
[2018-05-31] MEDS: TICAGRELOR 90 MG TABLET. PO SCH ×2 (08:17→21:27)
[2018-05-31] MEDS: LINEZOLID 600 MG TABLET PO SCH ×2 (08:17→21:27)
[2018-05-31] MEDS: FAMOTIDINE 20 MG TABLET. PO SCH (08:17)
[2018-05-31] MEDS: ASPIRIN ENTERIC COATED 81 MG TABLET.DR. PO SCH (08:18)
--- NOTE | 2018-05-31 09:53 | PDOC ---
DAYNE NEWBERRY [employer] P[employer] 05/31/18 0953: SURGICAL PROGRESS NOTE Subjective tolerating diet no pain ostomy functioning Vital Signs Vital Signs Date Time Temp Pulse Resp B/P (MAP) Pulse Ox O2 Delivery O2 Flow Rate FiO2 05/31/18 08:17 125 100/58 05/31/18 07:25 Room Air 05/31/18 07:00 97.7 18 99 97.7 I&O Intake and Output 05/31/18 06:59 Output Total 1301 ml Balance -1301 ml Output Urine Total 1 ml Stool Total 1300 ml # Voids 2 General: Alert, Oriented X3, Cooperative, No acute distress Abdomen: Soft, No tenderness Labs Laboratory Tests Test 05/29/18 12:08 05/29/18 16:46 05/29/18 20:37 05/30/18 04:53 Glucose (Fingerstick) 202 mg/dL (70-99) 236 mg/dL (70-99) 361 mg/dL (70-99) White Blood Count 14.0 x10^3/uL (4.0-11.0) Red Blood Count 3.61 x10^6/uL (4.30-5.70) Hemoglobin 10.7 g/dL (13.0-17.5) Hematocrit 31.6 % (39.0-53.0) Mean Corpuscular Volume 87 fL (79-100) Mean Corpuscular Hemoglobin 30 pg (25-35) Mean Corpuscular Hemoglobin Concent 34 g/dL (31-37) Red Cell Distribution Width 16.2 % (11.5-14.5) Platelet Count 845 x10^3/uL (140-400) Neutrophils (%) (Auto) 73 % (31-73) Lymphocytes (%) (Auto) 14 % (24-48) Monocytes (%) (Auto) 7 % (0-9) Eosinophils (%) (Auto) 5 % (0-3) Basophils (%) (Auto) 1 % (0-3) Neutrophils # (Auto) 10.2 x10^3uL (1.8-7.7) Lymphocytes # (Auto) 2.0 x10^3/uL (1.0-4.8) Monocytes # (Auto) 1.0 x10^3/uL (0.0-1.1) Eosinophils # (Auto) 0.6 x10^3/uL (0.0-0.7) Basophils # (Auto) 0.1 x10^3/uL (0.0-0.2) Sodium Level 139 mmol/L (136-145) Potassium Level 4.1 mmol/L (3.5-5.1) Chloride Level 104 mmol/L (98-107) Carbon Dioxide Level 22 mmol/L (21-32) Anion Gap 13 (6-14) Blood Urea Nitrogen 20 mg/dL (8-26) Creatinine 1.0 mg/dL (0.7-1.3) Estimated GFR (Cockcroft-Gault) 71.7 Glucose Level 149 mg/dL (70-99) Calcium Level 9.1 mg/dL (8.5-10.1) Lipase 631 U/L (73-393) Test 05/30/18 07:51 05/30/18 11:43 05/30/18 17:00 05/30/18 20:50 Glucose (Fingerstick) 163 mg/dL (70-99) 234 mg/dL (70-99) 197 mg/dL (70-99) 267 mg/dL (70-99) Test 05/31/18 04:58 05/31/18 07:20 White Blood Count 11.9 x10^3/uL (4.0-11.0) Red Blood Count 3.80 x10^6/uL (4.30-5.70) Hemoglobin 11.1 g/dL (13.0-17.5) Hematocrit 33.5 % (39.0-53.0) Mean Corpuscular Volume 88 fL (79-100) Mean Corpuscular Hemoglobin 29 pg (25-35) Mean Corpuscular Hemoglobin Concent 33 g/dL (31-37) Red Cell Distribution Width 16.2 % (11.5-14.5) Platelet Count 763 x10^3/uL (140-400) Neutrophils (%) (Auto) 72 % (31-73) Lymphocytes (%) (Auto) 15 % (24-48) Monocytes (%) (Auto) 8 % (0-9) Eosinophils (%) (Auto) 4 % (0-3) Basophils (%) (Auto) 1 % (0-3) Neutrophils # (Auto) 8.6 x10^3uL (1.8-7.7) Lymphocytes # (Auto) 1.7 x10^3/uL (1.0-4.8) Monocytes # (Auto) 0.9 x10^3/uL (0.0-1.1) Eosinophils # (Auto) 0.5 x10^3/uL (0.0-0.7) Basophils # (Auto) 0.1 x10^3/uL (0.0-0.2) Sodium Level 138 mmol/L (136-145) Potassium Level 4.4 mmol/L (3.5-5.1) Chloride Level 102 mmol/L (98-107) Carbon Dioxide Level 23 mmol/L (21-32) Anion Gap 13 (6-14) Blood Urea Nitrogen 21 mg/dL (8-26) Creatinine 1.0 mg/dL (0.7-1.3) Estimated GFR (Cockcroft-Gault) 71.7 BUN/Creatinine Ratio 21 (6-20) Glucose Level 132 mg/dL (70-99) Calcium Level 9.0 mg/dL (8.5-10.1) Total Bilirubin 0.3 mg/dL (0.2-1.0) Aspartate Amino Transf (AST/SGOT) 33 U/L (15-37) Alanine Aminotransferase (ALT/SGPT) 64 U/L (16-63) Alkaline Phosphatase 93 U/L (46-116) Total Protein 7.2 g/dL (6.4-8.2) Albumin 2.5 g/dL (3.4-5.0) Albumin/Globulin Ratio 0.5 (1.0-1.7) Lipase 447 U/L (73-393) Glucose (Fingerstick) 116 mg/dL (70-99) Laboratory Tests Test 05/30/18 11:43 05/30/18 17:00 05/30/18 20:50 05/31/18 04:58 Glucose (Fingerstick) 234 mg/dL (70-99) 197 mg/dL (70-99) 267 mg/dL (70-99) White Blood Count 11.9 x10^3/uL (4.0-11.0) Red Blood Count 3.80 x10^6/uL (4.30-5.70) Hemoglobin 11.1 g/dL (13.0-17.5) Hematocrit 33.5 % (39.0-53.0) Mean Corpuscular Volume 88 fL (79-100) Mean Corpuscular Hemoglobin 29 pg (25-35) Mean Corpuscular Hemoglobin Concent 33 g/dL (31-37) Red Cell Distribution Width 16.2 % (11.5-14.5) Platelet Count 763 x10^3/uL (140-400) Neutrophils (%) (Auto) 72 % (31-73) Lymphocytes (%) (Auto) 15 % (24-48) Monocytes (%) (Auto) 8 % (0-9) Eosinophils (%) (Auto) 4 % (0-3) Basophils (%) (Auto) 1 % (0-3) Neutrophils # (Auto) 8.6 x10^3uL (1.8-7.7) Lymphocytes # (Auto) 1.7 x10^3/uL (1.0-4.8) Monocytes # (Auto) 0.9 x10^3/uL (0.0-1.1) Eosinophils # (Auto) 0.5 x10^3/uL (0.0-0.7) Basophils # (Auto) 0.1 x10^3/uL (0.0-0.2) Sodium Level 138 mmol/L (136-145) Potassium Level 4.4 mmol/L (3.5-5.1) Chloride Level 102 mmol/L (98-107) Carbon Dioxide Level 23 mmol/L (21-32) Anion Gap 13 (6-14) Blood Urea Nitrogen 21 mg/dL (8-26) Creatinine 1.0 mg/dL (0.7-1.3) Estimated GFR (Cockcroft-Gault) 71.7 BUN/Creatinine Ratio 21 (6-20) Glucose Level 132 mg/dL (70-99) Calcium Level 9.0 mg/dL (8.5-10.1) Total Bilirubin 0.3 mg/dL (0.2-1.0) Aspartate Amino Transf (AST/SGOT) 33 U/L (15-37) Alanine Aminotransferase (ALT/SGPT) 64 U/L (16-63) Alkaline Phosphatase 93 U/L (46-116) Total Protein 7.2 g/dL (6.4-8.2) Albumin 2.5 g/dL (3.4-5.0) Albumin/Globulin Ratio 0.5 (1.0-1.7) Lipase 447 U/L (73-393) Test 05/31/18 07:20 Glucose (Fingerstick) 116 mg/dL (70-99) Problem List Problems Medical Problems: (1) Hyperglycemia Status: Acute (2) Hyperkalemia Status: Acute (3) Severe sepsis Status: Acute Assessment/Plan no surgical needs AMBROSE BARNES MD 05/31/18 1738: SURGICAL PROGRESS NOTE Assessment/Plan pt seen as above will sign off please call if needed Thank you DAYNE NEWBERRY APRN May 31, 2018 09:53 AMBROSE BARNES MD May 31, 2018 17:38
--- NOTE | 2018-05-31 10:09 | PDOC ---
PROGRESS NOTES Subjective Subjective covering for Edin,no complaints Objective Objective Vital Signs Date Time Temp Pulse Resp B/P (MAP) Pulse Ox O2 Delivery O2 Flow Rate FiO2 05/31/18 08:17 125 100/58 05/31/18 07:25 Room Air 05/31/18 07:00 97.7 18 99 97.7 Intake and Output 05/31/18 06:59 Output Total 1301 ml Balance -1301 ml Output Urine Total 1 ml Stool Total 1300 ml # Voids 2 Physical Exam Abdomen: Soft, No tenderness Heart: Regular rate, Other (2/6 systolic murmur) Extremities: No cyanosis, No edema General: Alert, Oriented X3, Cooperative, No acute distress HEENT: Atraumatic, Mucous membr. moist/pink Lungs: Other (diminished bases) MUSCULOSKELETAL: Osteoarthritic changes both hands Neuro: Normal speech, Sensation intact Psych/Mental Status: Mental status NL, Mood NL Skin: No breakdown, No significant lesion Diagnosis Problem List Problems Medical Problems: (1) Hyperglycemia Status: Acute (2) Hyperkalemia Status: Acute (3) Severe sepsis Status: Acute Assessment Assessment Problems Medical Problems: (1) Hyperglycemia Status: Acute (2) Hyperkalemia Status: Acute (3) Severe sepsis Status: Acute 1. Sepsis, The patient continued to be on antibiotic. His vancomycin was discontinued. He has been afebrile; however, his white cell count is trending upward and today is 12,000. 2. Hypokalemia and hypernatremia have resolved. 3. Acute kidney injury, resolved. His creatinine came down from 1.5 to 1 mg. 4. Transaminitis, improving. His alkaline phosphatase has normalized. AST, ALT continued to be slightly elevated. 5. Acute pancreatitis. Her serum lipase continued to be slightly elevated at 631. 6. Persistent sinus tachycardia has resolved. In fact, his heart rate now is in the 60s. He was seen in consultation by the pluck trimmer and echocardiogram showed that ejection fraction was about 40% with global hypokinesis, thyroid function, however, was normal. PLAN: pt/ot/ rehab consult id consult appreciated. To continue with IV antibiotic. Continue with famotidine. Continue to monitor his blood sugar and adjust insulin as needed. Plan Plan of Care Problems Medical Problems: (1) Hyperglycemia Status: Acute (2) Hyperkalemia Status: Acute (3) Severe sepsis Status: Acute Comment Review of Relevant I have reviewed the following items mukesh (where applicable) has been applied. Labs Laboratory Tests Test 05/30/18 11:43 05/30/18 17:00 05/30/18 20:50 05/31/18 04:58 Glucose (Fingerstick) 234 mg/dL (70-99) 197 mg/dL (70-99) 267 mg/dL (70-99) White Blood Count 11.9 x10^3/uL (4.0-11.0) Red Blood Count 3.80 x10^6/uL (4.30-5.70) Hemoglobin 11.1 g/dL (13.0-17.5) Hematocrit 33.5 % (39.0-53.0) Mean Corpuscular Volume 88 fL (79-100) Mean Corpuscular Hemoglobin 29 pg (25-35) Mean Corpuscular Hemoglobin Concent 33 g/dL (31-37) Red Cell Distribution Width 16.2 % (11.5-14.5) Platelet Count 763 x10^3/uL (140-400) Neutrophils (%) (Auto) 72 % (31-73) Lymphocytes (%) (Auto) 15 % (24-48) Monocytes (%) (Auto) 8 % (0-9) Eosinophils (%) (Auto) 4 % (0-3) Basophils (%) (Auto) 1 % (0-3) Neutrophils # (Auto) 8.6 x10^3uL (1.8-7.7) Lymphocytes # (Auto) 1.7 x10^3/uL (1.0-4.8) Monocytes # (Auto) 0.9 x10^3/uL (0.0-1.1) Eosinophils # (Auto) 0.5 x10^3/uL (0.0-0.7) Basophils # (Auto) 0.1 x10^3/uL (0.0-0.2) Sodium Level 138 mmol/L (136-145) Potassium Level 4.4 mmol/L (3.5-5.1) Chloride Level 102 mmol/L (98-107) Carbon Dioxide Level 23 mmol/L (21-32) Anion Gap 13 (6-14) Blood Urea Nitrogen 21 mg/dL (8-26) Creatinine 1.0 mg/dL (0.7-1.3) Estimated GFR (Cockcroft-Gault) 71.7 BUN/Creatinine Ratio 21 (6-20) Glucose Level 132 mg/dL (70-99) Calcium Level 9.0 mg/dL (8.5-10.1) Total Bilirubin 0.3 mg/dL (0.2-1.0) Aspartate Amino Transf (AST/SGOT) 33 U/L (15-37) Alanine Aminotransferase (ALT/SGPT) 64 U/L (16-63) Alkaline Phosphatase 93 U/L (46-116) Total Protein 7.2 g/dL (6.4-8.2) Albumin 2.5 g/dL (3.4-5.0) Albumin/Globulin Ratio 0.5 (1.0-1.7) Lipase 447 U/L (73-393) Test 05/31/18 07:20 Glucose (Fingerstick) 116 mg/dL (70-99) Microbiology 05/26/18 Blood Culture - Final, Complete NO GROWTH AFTER 5 DAYS Medications Current Medications Insulin Human Lispro (HumaLOG) 2 units 1X ONCE SQ Last administered on at 21:09; Start 05/30/18 at 21:00; Stop 05/30/18 at 21:04; Status DC Micafungin Sodium 100 mg/Dextrose 100 ml @ 100 mls/hr Q24H IV Last administered on 05/30/18at 16:27; Start 05/30/18 at 14:00 Temazepam (Restoril) 7.5 mg PRN QHS PRN PO INSOMNIA Last administered on at 21:56; Start 05/30/18 at 13:45 Vitals/I & O Vital Sign - Last 24 Hours 05/30/18 05/30/18 05/30/18 05/30/18 11:00 15:00 16:26 19:30 Temp 97.4 98.1 97.9 97.4 98.1 97.9 Pulse 101 86 114 Resp 19 18 18 B/P (MAP) 105/62 (76) 112/66 (81) 108/63 (78) Pulse Ox 98 96 98 97 O2 Delivery Room Air Room Air Room Air 05/30/18 05/30/18 05/30/18 05/30/18 20:00 20:40 22:51 23:00 Temp 97.8 97.8 Pulse 114 117 Resp 20 18 B/P (MAP) 108/63 113/76 (88) Pulse Ox 97 98 O2 Delivery Room Air Room Air Room Air 05/31/18 05/31/18 05/31/18 05/31/18 03:00 03:18 03:48 07:00 Temp 97.7 97.7 97.7 97.7 Pulse 96 68 Resp 18 20 20 18 B/P (MAP) 106/59 (75) 100/58 (72) Pulse Ox 98 98 98 99 O2 Delivery Room Air Room Air Room Air Room Air 05/31/18 05/31/18 07:25 08:17 Pulse 125 B/P (MAP) 100/58 O2 Delivery Room Air Intake and Output 05/30/18 05/30/18 05/31/18 14:59 22:59 06:59 Output Total 400 ml 750 ml 151 ml Balance -400 ml -750 ml -151 ml Nutrition Consultation Dietary Evaluation: Recommendations by RD: Increase Calorie Intake, Protein supplementation Comments: REC continue ADA diet per pt. past history of diabetes Rec. add cardiac diet Expected Outcomes/Goals: P.O. intake >75% estimated needs Interpretation of weight loss: >10% in 6 months Malnutrition Findings: Body Fat Depletion (Non Severe: Mild Depletion Weight Status: Appropriate JASPER MENDENHALL MD May 31, 2018 10:09
--- NOTE | 2018-05-31 10:18 | PDOC ---
Infectious Disease Note Subjective Subjective Feeling alright but drained, mild abdominal discomfort Denies N/V/F/C/SOA ROS ROS o/w neg Vital Sign Vital Signs Vital Signs Date Time Temp Pulse Resp B/P (MAP) Pulse Ox O2 Delivery O2 Flow Rate FiO2 05/31/18 08:17 125 100/58 05/31/18 07:25 Room Air 05/31/18 07:00 97.7 18 99 97.7 Physical Exam PHYSICAL EXAM GENERAL: Propped up in bed, alert, relaxed appearance HEENT: Pupils equal and reactive. Oral cavity, pharynx clear, dentures, no thrush NECK: Supple, no JVD. LUNGS: Clear to auscultation, HEART: S1, S2. ABDOMEN: Soft, ostomy bag sealed; midline incision, well-approx, min red, no drainage, NT EXTREMITIES: No clubbing, cyanosis or gross edema. SKIN: Warm to touch without signs of rash. NEUROLOGIC: Alert, nonfocal and appropriate. Labs Lab Laboratory Tests Test 05/30/18 11:43 05/30/18 17:00 05/30/18 20:50 05/31/18 04:58 Glucose (Fingerstick) 234 mg/dL (70-99) 197 mg/dL (70-99) 267 mg/dL (70-99) White Blood Count 11.9 x10^3/uL (4.0-11.0) Red Blood Count 3.80 x10^6/uL (4.30-5.70) Hemoglobin 11.1 g/dL (13.0-17.5) Hematocrit 33.5 % (39.0-53.0) Mean Corpuscular Volume 88 fL (79-100) Mean Corpuscular Hemoglobin 29 pg (25-35) Mean Corpuscular Hemoglobin Concent 33 g/dL (31-37) Red Cell Distribution Width 16.2 % (11.5-14.5) Platelet Count 763 x10^3/uL (140-400) Neutrophils (%) (Auto) 72 % (31-73) Lymphocytes (%) (Auto) 15 % (24-48) Monocytes (%) (Auto) 8 % (0-9) Eosinophils (%) (Auto) 4 % (0-3) Basophils (%) (Auto) 1 % (0-3) Neutrophils # (Auto) 8.6 x10^3uL (1.8-7.7) Lymphocytes # (Auto) 1.7 x10^3/uL (1.0-4.8) Monocytes # (Auto) 0.9 x10^3/uL (0.0-1.1) Eosinophils # (Auto) 0.5 x10^3/uL (0.0-0.7) Basophils # (Auto) 0.1 x10^3/uL (0.0-0.2) Sodium Level 138 mmol/L (136-145) Potassium Level 4.4 mmol/L (3.5-5.1) Chloride Level 102 mmol/L (98-107) Carbon Dioxide Level 23 mmol/L (21-32) Anion Gap 13 (6-14) Blood Urea Nitrogen 21 mg/dL (8-26) Creatinine 1.0 mg/dL (0.7-1.3) Estimated GFR (Cockcroft-Gault) 71.7 BUN/Creatinine Ratio 21 (6-20) Glucose Level 132 mg/dL (70-99) Calcium Level 9.0 mg/dL (8.5-10.1) Total Bilirubin 0.3 mg/dL (0.2-1.0) Aspartate Amino Transf (AST/SGOT) 33 U/L (15-37) Alanine Aminotransferase (ALT/SGPT) 64 U/L (16-63) Alkaline Phosphatase 93 U/L (46-116) Total Protein 7.2 g/dL (6.4-8.2) Albumin 2.5 g/dL (3.4-5.0) Albumin/Globulin Ratio 0.5 (1.0-1.7) Lipase 447 U/L (73-393) Test 05/31/18 07:20 Glucose (Fingerstick) 116 mg/dL (70-99) Micro Microbiology 05/26/18 Blood Culture - Final, Complete NO GROWTH AFTER 5 DAYS Objective Assessment Leukocytosis, C diff PCR neg, 05/27 - improved ? Zyvox/Marita ? viral? Pancreatitis 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 Recurrent abdominal abscesses s/p drain on 05/11 with growth of mixed mireya, yeast and E. coli (R quinolones, amp, cefuroxime) - h/o IR drain on 04/21 with growth of Bacteroides, E. coli (R quinolones), Klebsiella and (yeast on GS) Transaminitis with high lipase Lactic acidosis, better DENNIS better DM poorly controlled s/p cystoscopy with bilateral stent placement, 05/15. Urine c/s 05/17 neg Chronic anemia GERD S/p cholecystectomy CAD Plan Plan of Care Cont Zosyn Continue Zyvox (05/29) Cont micafungin 05/30 Taper abx soon cont ostomy care CBC/CMP/lipase in am AUNG CASTRO MD May 31, 2018 10:18
[2018-05-31 11:00] VITALS: BP 101/63
--- NOTE | 2018-05-31 12:33 | PDOC ---
Subjective: Subjective: Had a big breakfast, still full from that so didn't finish lunch. Has some occasional lower abd discomfort - present before surgery, stable. No n/v. wonders if additional pancreas testing is needed. Objective: Vital Signs: Vital Signs Date Time Temp Pulse Resp B/P (MAP) Pulse Ox O2 Delivery O2 Flow Rate FiO2 05/31/18 12:06 Room Air 05/31/18 11:00 97.4 103 18 101/63 (76) 99 97.4 Labs: Laboratory Tests Test 05/30/18 17:00 05/30/18 20:50 05/31/18 04:58 05/31/18 07:20 Glucose (Fingerstick) 197 mg/dL 267 mg/dL 116 mg/dL White Blood Count 11.9 x10^3/uL Red Blood Count 3.80 x10^6/uL Hemoglobin 11.1 g/dL Hematocrit 33.5 % Mean Corpuscular Volume 88 fL Mean Corpuscular Hemoglobin 29 pg Mean Corpuscular Hemoglobin Concent 33 g/dL Red Cell Distribution Width 16.2 % Platelet Count 763 x10^3/uL Neutrophils (%) (Auto) 72 % Lymphocytes (%) (Auto) 15 % Monocytes (%) (Auto) 8 % Eosinophils (%) (Auto) 4 % Basophils (%) (Auto) 1 % Neutrophils # (Auto) 8.6 x10^3uL Lymphocytes # (Auto) 1.7 x10^3/uL Monocytes # (Auto) 0.9 x10^3/uL Eosinophils # (Auto) 0.5 x10^3/uL Basophils # (Auto) 0.1 x10^3/uL Sodium Level 138 mmol/L Potassium Level 4.4 mmol/L Chloride Level 102 mmol/L Carbon Dioxide Level 23 mmol/L Anion Gap 13 Blood Urea Nitrogen 21 mg/dL Creatinine 1.0 mg/dL Estimated GFR (Cockcroft-Gault) 71.7 BUN/Creatinine Ratio 21 Glucose Level 132 mg/dL Calcium Level 9.0 mg/dL Total Bilirubin 0.3 mg/dL Aspartate Amino Transf (AST/SGOT) 33 U/L Alanine Aminotransferase (ALT/SGPT) 64 U/L Alkaline Phosphatase 93 U/L Total Protein 7.2 g/dL Albumin 2.5 g/dL Albumin/Globulin Ratio 0.5 Lipase 447 U/L Test 05/31/18 11:42 Glucose (Fingerstick) 248 mg/dL PE: GEN: NAD, up in chair LUNGS: room air HEART: RRR ABD: soft, non-tender, RLQ ostomy NEURO/PSYCH: A & O 3 A/P: Recent sigmoid and ileocolic resection w/ ileostomy and drainage of abscess Leukocytosis (better), chronic anemia Transaminitis (improved), mildly elevated lipase (improved since admission - 447 today), 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 Note plans to recheck labs in a.m. Additional recs per Dr. Gomes. EMILY KNIGHT May 31, 2018 12:33
--- NOTE | 2018-05-31 12:39 | NUR ---
SW following. Discussed with RN, Getachew Hickey requesting more information about antibiotics pt will need to discharge on. RN notified. SW will continue to follow.
[2018-05-31] MEDS: MICAFUNGIN 100 MG in IV DEXTROSE 5% 100ML 100 ML IV SCH (14:14)
[2018-05-31 15:00] VITALS: BP 106/57
--- NOTE | 2018-05-31 15:20 | NUR ---
Wound/Ostomy Care Pt seen for Ostomy follow up. Assessed bag, peristomal redness has improved, no leakage noted from bag, pt and RN stated bag has held up since being changed on Thursday. Pt is very pleased, and stated his pain has dramatically improved. Will f/u tomorrow for any changes.
[2018-05-31 19:00] VITALS: BP 137/80
[2018-05-31] MEDS: INSULIN GLARGINE 300 UNITS/3 ML INSULN.PEN. SQ SCH (21:33)
[2018-05-31] MEDS: TEMAZEPAM 15 MG CAPSULE PO PRN (22:19)
[2018-05-31 23:00] VITALS: BP 108/66
[2018-06-01] MEDS: PIPERACILLIN/TAZOBACTAM 3.375 GM in IV NORMAL SALINE 50ML 50 ML IV SCH ×4 (00:22→18:26)
[2018-06-01] MEDS: fentaNYL PF VIAL 100 MCG/2 ML VIAL IV PRN (00:22)
[2018-06-01 03:00] VITALS: BP 107/73
[2018-06-01 04:14] LABS: BASO # 0.1 x10^3/uL (0.0-0.2); BASO % 1 % (0-3); EOS # 0.5 x10^3/uL (0.0-0.7); EOS % 4 % (0-3); HEMATOCRIT 33.2 % (39.0-53.0); HEMOGLOBIN 10.7 g/dL (13.0-17.5); LYMPH # 2.3 x10^3/uL (1.0-4.8); LYMPH % 18 % (24-48); MEAN CORPUSCULAR HEMOGLOBIN 28 pg (25-35); MEAN CORPUSCULAR HGB CONC 32 g/dL (31-37); MEAN CORPUSCULAR VOLUME 88 fL (79-100); MONO % 8 % (0-9); NEUT # 8.7 x10^3uL (1.8-7.7); NEUT % 69 % (31-73); PLATELET COUNT 789 x10^3/uL (140-400); RED BLOOD COUNT 3.78 x10^6/uL (4.30-5.70); RED CELL DISTRIBUTION WIDTH 16.1 % (11.5-14.5); WHITE BLOOD COUNT 12.6 x10^3/uL (4.0-11.0)
[2018-06-01 04:52] LABS: ALBUMIN 2.7 g/dL (3.4-5.0); ALBUMIN/GLOBULIN RATIO 0.6 (1.0-1.7); CALCIUM 8.8 mg/dL (8.5-10.1); CREATININE 1.1 mg/dL (0.7-1.3); GFR 64.2; POTASSIUM 4.1 mmol/L (3.5-5.1); TOTAL BILIRUBIN 0.2 mg/dL (0.2-1.0); TOTAL PROTEIN 7.1 g/dL (6.4-8.2)
[2018-06-01 07:00] VITALS: BP 103/55
[2018-06-01] MEDS: LACTOBACILLUS RHAMNOSUS GG 1 CAPSULE. PO SCH ×2 (07:58→21:13)
[2018-06-01] MEDS: TICAGRELOR 90 MG TABLET. PO SCH ×2 (07:58→21:12)
[2018-06-01] MEDS: FAMOTIDINE 20 MG TABLET. PO SCH (07:59)
[2018-06-01] MEDS: METOPROLOL TART IMMED RELEASE 25 MG TABLET. PO SCH ×2 (07:59→21:14)
[2018-06-01] MEDS: INSULIN LISPRO 300 UNITS/3 ML INSULN.PEN. SQ SCH ×3 (07:59→18:31)
[2018-06-01] MEDS: LINEZOLID 600 MG TABLET PO SCH ×2 (07:59→21:13)
[2018-06-01] MEDS: FERROUS SULFATE ORAL 300 MG/5 ML SOLUTION. PO SCH ×2 (07:59→18:26)
[2018-06-01] MEDS: ASPIRIN ENTERIC COATED 81 MG TABLET.DR. PO SCH (07:59)
--- NOTE | 2018-06-01 08:57 | CONS ---
DATE OF CONSULTATION: 05/31/2018 ATTENDING PHYSICIAN: Dr. Jesus. The patient was seen at the request of Dr. Mensah for rehab evaluation. HISTORY OF PRESENT ILLNESS: This is an 82-year-old right-handed male, a resident of [facility] on and off for the last several months. The patient was admitted on 05/25/2018 after he was not feeling well and lab work revealed marked leukocytosis with white cell count of 19,000. He was also noted with dehydration and BUN and creatinine has been dramatically rising compared to the previous lab work. The patient was admitted through the Emergency Room. He was also noted with hyponatremia, hyperkalemia and acute kidney injury, marked leukocytosis, lactic acidosis and admitted with a tentative diagnosis of sepsis. The patient had a CT scan of the abdomen and pelvis, which revealed pneumoperitoneum, which is a new finding in a setting of right jen-ileostomy and hemicolectomy. No discrete extraluminal fluid collection identified other than mild dependent hemorrhage in the left pelvis. No evidence of any bowel obstruction, small bowel wall thickening in the left abdomen, could be due to enteritis; gastric wall thickening, probably secondary to gastritis. He had emphysema, and he had 0.7 cm nonobstructing calculus in the right renal pelvis, some gas in the urinary bladder lumen. The patient with known coronary artery disease, chronic obstructive pulmonary disease, type 2 diabetes mellitus, hypercholesterolemia, hyperlipidemia. He is also with known benign prostatic hypertrophy, was diagnosed with abdominal abscess and initially treated with drainage and eventually underwent laparoscopic and latter open laparotomy with sigmoid resection and loop ileostomy, and he did well and was at [facility]. He also had PCI with stent placement, cholecystectomy, hernia repair, transurethral resection of the prostate. He also had ileocolic resection, extensive lysis of adhesions, drainage of an abscess, right sigmoidoscopy, small bowel mass, removal of previous drains. HE IS KNOWN ALLERGIC TO LATEX. The patient is being followed by Physical Therapy. He apparently walked for about 250 feet today. He admits mild abdominal discomfort. The patient denies any tingling, numbness sensation in the extremities. The patient prior to the present hospitalization has been living with his family and stairs for him to manage. PHYSICAL EXAMINATION: Today revealed an elderly male. He is alert, oriented to time, place, person and circumstance and follows commands appropriately, moves all 4 extremities voluntarily where he had 4+/5 grade muscle strength. Deep tendon reflexes are decreased overall with absent ankle jerks, and he had equal perception of touch and pinprick sensation bilaterally. He had pain free range of motion of all four extremity joints. He is independent with bed mobility and transfers and up walking using a roller walker. ASSESSMENT: An elderly male with deconditioned state, status post multiple abdominal surgeries for abscess and a small bowel mass, admitted recently with sepsis, being treated. The patient with known diabetes mellitus with peripheral neuropathy. RECOMMENDATIONS: Agree with the plans for physical therapy and occupational therapy to get him up as tolerated. Dr. Mensah, I appreciate asking me to participate in the care of this interesting patient. I will be glad to follow him with you as needed for his rehabilitation. CLAUDIO BOUDREAUX MD DR: VICKIE/gloria JOB#: [id number] / [id number]
--- NOTE | 2018-06-01 09:01 | PDOC ---
Infectious Disease Note Subjective Subjective Feeling alright but having left over med effect, mild abdominal discomfort better but getting pain meds Denies N/V/F/C/SOA ROS ROS o/w neg Vital Sign Vital Signs Vital Signs Date Time Temp Pulse Resp B/P (MAP) Pulse Ox O2 Delivery O2 Flow Rate FiO2 06/01/18 07:59 99 107/73 06/01/18 07:00 97.6 16 97 Room Air 97.6 Physical Exam PHYSICAL EXAM GENERAL: Propped up in bed, alert, relaxed appearance HEENT: Pupils equal and reactive. Oral cavity, pharynx clear, dentures, no thrush NECK: Supple, no JVD. LUNGS: Clear to auscultation, HEART: S1, S2. ABDOMEN: Soft, ostomy bag sealed; midline incision, well-approx, min red, no drainage, NT EXTREMITIES: No clubbing, cyanosis or gross edema. SKIN: Warm to touch without signs of rash. NEUROLOGIC: Alert, nonfocal and appropriate. Labs Lab Laboratory Tests Test 05/31/18 11:42 05/31/18 16:24 05/31/18 20:44 06/01/18 03:15 Glucose (Fingerstick) 248 mg/dL (70-99) 271 mg/dL (70-99) 212 mg/dL (70-99) White Blood Count 12.6 x10^3/uL (4.0-11.0) Red Blood Count 3.78 x10^6/uL (4.30-5.70) Hemoglobin 10.7 g/dL (13.0-17.5) Hematocrit 33.2 % (39.0-53.0) Mean Corpuscular Volume 88 fL (79-100) Mean Corpuscular Hemoglobin 28 pg (25-35) Mean Corpuscular Hemoglobin Concent 32 g/dL (31-37) Red Cell Distribution Width 16.1 % (11.5-14.5) Platelet Count 789 x10^3/uL (140-400) Neutrophils (%) (Auto) 69 % (31-73) Lymphocytes (%) (Auto) 18 % (24-48) Monocytes (%) (Auto) 8 % (0-9) Eosinophils (%) (Auto) 4 % (0-3) Basophils (%) (Auto) 1 % (0-3) Neutrophils # (Auto) 8.7 x10^3uL (1.8-7.7) Lymphocytes # (Auto) 2.3 x10^3/uL (1.0-4.8) Monocytes # (Auto) 1.0 x10^3/uL (0.0-1.1) Eosinophils # (Auto) 0.5 x10^3/uL (0.0-0.7) Basophils # (Auto) 0.1 x10^3/uL (0.0-0.2) Sodium Level 137 mmol/L (136-145) Potassium Level 4.1 mmol/L (3.5-5.1) Chloride Level 101 mmol/L (98-107) Carbon Dioxide Level 22 mmol/L (21-32) Anion Gap 14 (6-14) Blood Urea Nitrogen 22 mg/dL (8-26) Creatinine 1.1 mg/dL (0.7-1.3) Estimated GFR (Cockcroft-Gault) 64.2 BUN/Creatinine Ratio 20 (6-20) Glucose Level 115 mg/dL (70-99) Calcium Level 8.8 mg/dL (8.5-10.1) Total Bilirubin 0.2 mg/dL (0.2-1.0) Aspartate Amino Transf (AST/SGOT) 27 U/L (15-37) Alanine Aminotransferase (ALT/SGPT) 57 U/L (16-63) Alkaline Phosphatase 91 U/L (46-116) Total Protein 7.1 g/dL (6.4-8.2) Albumin 2.7 g/dL (3.4-5.0) Albumin/Globulin Ratio 0.6 (1.0-1.7) Lipase 429 U/L (73-393) Test 06/01/18 07:37 Glucose (Fingerstick) 118 mg/dL (70-99) Micro Microbiology 05/26/18 Blood Culture - Final, Complete NO GROWTH AFTER 5 DAYS Objective Assessment Leukocytosis, C diff PCR neg, 05/27 - mild increase? Zyvox/Marita ? viral? 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 Recurrent abdominal abscesses s/p drain on 05/11 with growth of mixed mireya, yeast and E. coli (R quinolones, amp, cefuroxime) - h/o IR drain on 04/21 with growth of Bacteroides, E. coli (R quinolones), Klebsiella and (yeast on GS) Transaminitis - improved with high lipase - better but sill elevated Lactic acidosis, better DENNIS better DM poorly controlled s/p cystoscopy with bilateral stent placement, 05/15. Urine c/s 05/17 neg Chronic anemia GERD S/p cholecystectomy CAD Plan Plan of Care Cont Zosyn Continue Zyvox (05/29) Cont micafungin 05/30 Labs in am. May need repeat CT if WBC cont to trend up ? taper pain meds -states was not needing them prior to admit Taper abx soon cont ostomy care AUNG CASTRO MD Jun 01, 2018 09:01
--- NOTE | 2018-06-01 09:53 | PDOC ---
PROGRESS NOTES Subjective Subjective No new complaints. Objective Objective Vital Signs Date Time Temp Pulse Resp B/P (MAP) Pulse Ox O2 Delivery O2 Flow Rate FiO2 06/01/18 07:59 99 107/73 06/01/18 07:00 97.6 16 97 Room Air 97.6 Intake and Output 06/01/18 06:59 Intake Total 700 ml Output Total 1650 ml Balance -950 ml Intake Oral 700 ml Stool Total 1650 ml # Voids 1 Physical Exam Physical Exam He is supine in bed and comfortable and he is walking in his room with roller walker independently. Assessment Assessment Problems Medical Problems: (1) Hyperglycemia Status: Acute (2) Hyperkalemia Status: Acute (3) Severe sepsis Status: Acute Plan Plan of Care To SNF when medically stable. Comment Review of Relevant I have reviewed the following items mukesh (where applicable) has been applied. Labs Laboratory Tests Test 05/30/18 11:43 05/30/18 17:00 05/30/18 20:50 05/31/18 04:58 Glucose (Fingerstick) 234 mg/dL (70-99) 197 mg/dL (70-99) 267 mg/dL (70-99) White Blood Count 11.9 x10^3/uL (4.0-11.0) Red Blood Count 3.80 x10^6/uL (4.30-5.70) Hemoglobin 11.1 g/dL (13.0-17.5) Hematocrit 33.5 % (39.0-53.0) Mean Corpuscular Volume 88 fL (79-100) Mean Corpuscular Hemoglobin 29 pg (25-35) Mean Corpuscular Hemoglobin Concent 33 g/dL (31-37) Red Cell Distribution Width 16.2 % (11.5-14.5) Platelet Count 763 x10^3/uL (140-400) Neutrophils (%) (Auto) 72 % (31-73) Lymphocytes (%) (Auto) 15 % (24-48) Monocytes (%) (Auto) 8 % (0-9) Eosinophils (%) (Auto) 4 % (0-3) Basophils (%) (Auto) 1 % (0-3) Neutrophils # (Auto) 8.6 x10^3uL (1.8-7.7) Lymphocytes # (Auto) 1.7 x10^3/uL (1.0-4.8) Monocytes # (Auto) 0.9 x10^3/uL (0.0-1.1) Eosinophils # (Auto) 0.5 x10^3/uL (0.0-0.7) Basophils # (Auto) 0.1 x10^3/uL (0.0-0.2) Sodium Level 138 mmol/L (136-145) Potassium Level 4.4 mmol/L (3.5-5.1) Chloride Level 102 mmol/L (98-107) Carbon Dioxide Level 23 mmol/L (21-32) Anion Gap 13 (6-14) Blood Urea Nitrogen 21 mg/dL (8-26) Creatinine 1.0 mg/dL (0.7-1.3) Estimated GFR (Cockcroft-Gault) 71.7 BUN/Creatinine Ratio 21 (6-20) Glucose Level 132 mg/dL (70-99) Calcium Level 9.0 mg/dL (8.5-10.1) Total Bilirubin 0.3 mg/dL (0.2-1.0) Aspartate Amino Transf (AST/SGOT) 33 U/L (15-37) Alanine Aminotransferase (ALT/SGPT) 64 U/L (16-63) Alkaline Phosphatase 93 U/L (46-116) Total Protein 7.2 g/dL (6.4-8.2) Albumin 2.5 g/dL (3.4-5.0) Albumin/Globulin Ratio 0.5 (1.0-1.7) Lipase 447 U/L (73-393) Test 05/31/18 07:20 05/31/18 11:42 05/31/18 16:24 05/31/18 20:44 Glucose (Fingerstick) 116 mg/dL (70-99) 248 mg/dL (70-99) 271 mg/dL (70-99) 212 mg/dL (70-99) Test 06/01/18 03:15 06/01/18 07:37 White Blood Count 12.6 x10^3/uL (4.0-11.0) Red Blood Count 3.78 x10^6/uL (4.30-5.70) Hemoglobin 10.7 g/dL (13.0-17.5) Hematocrit 33.2 % (39.0-53.0) Mean Corpuscular Volume 88 fL (79-100) Mean Corpuscular Hemoglobin 28 pg (25-35) Mean Corpuscular Hemoglobin Concent 32 g/dL (31-37) Red Cell Distribution Width 16.1 % (11.5-14.5) Platelet Count 789 x10^3/uL (140-400) Neutrophils (%) (Auto) 69 % (31-73) Lymphocytes (%) (Auto) 18 % (24-48) Monocytes (%) (Auto) 8 % (0-9) Eosinophils (%) (Auto) 4 % (0-3) Basophils (%) (Auto) 1 % (0-3) Neutrophils # (Auto) 8.7 x10^3uL (1.8-7.7) Lymphocytes # (Auto) 2.3 x10^3/uL (1.0-4.8) Monocytes # (Auto) 1.0 x10^3/uL (0.0-1.1) Eosinophils # (Auto) 0.5 x10^3/uL (0.0-0.7) Basophils # (Auto) 0.1 x10^3/uL (0.0-0.2) Sodium Level 137 mmol/L (136-145) Potassium Level 4.1 mmol/L (3.5-5.1) Chloride Level 101 mmol/L (98-107) Carbon Dioxide Level 22 mmol/L (21-32) Anion Gap 14 (6-14) Blood Urea Nitrogen 22 mg/dL (8-26) Creatinine 1.1 mg/dL (0.7-1.3) Estimated GFR (Cockcroft-Gault) 64.2 BUN/Creatinine Ratio 20 (6-20) Glucose Level 115 mg/dL (70-99) Calcium Level 8.8 mg/dL (8.5-10.1) Total Bilirubin 0.2 mg/dL (0.2-1.0) Aspartate Amino Transf (AST/SGOT) 27 U/L (15-37) Alanine Aminotransferase (ALT/SGPT) 57 U/L (16-63) Alkaline Phosphatase 91 U/L (46-116) Total Protein 7.1 g/dL (6.4-8.2) Albumin 2.7 g/dL (3.4-5.0) Albumin/Globulin Ratio 0.6 (1.0-1.7) Lipase 429 U/L (73-393) Glucose (Fingerstick) 118 mg/dL (70-99) Laboratory Tests Test 05/31/18 11:42 05/31/18 16:24 05/31/18 20:44 06/01/18 03:15 Glucose (Fingerstick) 248 mg/dL (70-99) 271 mg/dL (70-99) 212 mg/dL (70-99) White Blood Count 12.6 x10^3/uL (4.0-11.0) Red Blood Count 3.78 x10^6/uL (4.30-5.70) Hemoglobin 10.7 g/dL (13.0-17.5) Hematocrit 33.2 % (39.0-53.0) Mean Corpuscular Volume 88 fL (79-100) Mean Corpuscular Hemoglobin 28 pg (25-35) Mean Corpuscular Hemoglobin Concent 32 g/dL (31-37) Red Cell Distribution Width 16.1 % (11.5-14.5) Platelet Count 789 x10^3/uL (140-400) Neutrophils (%) (Auto) 69 % (31-73) Lymphocytes (%) (Auto) 18 % (24-48) Monocytes (%) (Auto) 8 % (0-9) Eosinophils (%) (Auto) 4 % (0-3) Basophils (%) (Auto) 1 % (0-3) Neutrophils # (Auto) 8.7 x10^3uL (1.8-7.7) Lymphocytes # (Auto) 2.3 x10^3/uL (1.0-4.8) Monocytes # (Auto) 1.0 x10^3/uL (0.0-1.1) Eosinophils # (Auto) 0.5 x10^3/uL (0.0-0.7) Basophils # (Auto) 0.1 x10^3/uL (0.0-0.2) Sodium Level 137 mmol/L (136-145) Potassium Level 4.1 mmol/L (3.5-5.1) Chloride Level 101 mmol/L (98-107) Carbon Dioxide Level 22 mmol/L (21-32) Anion Gap 14 (6-14) Blood Urea Nitrogen 22 mg/dL (8-26) Creatinine 1.1 mg/dL (0.7-1.3) Estimated GFR (Cockcroft-Gault) 64.2 BUN/Creatinine Ratio 20 (6-20) Glucose Level 115 mg/dL (70-99) Calcium Level 8.8 mg/dL (8.5-10.1) Total Bilirubin 0.2 mg/dL (0.2-1.0) Aspartate Amino Transf (AST/SGOT) 27 U/L (15-37) Alanine Aminotransferase (ALT/SGPT) 57 U/L (16-63) Alkaline Phosphatase 91 U/L (46-116) Total Protein 7.1 g/dL (6.4-8.2) Albumin 2.7 g/dL (3.4-5.0) Albumin/Globulin Ratio 0.6 (1.0-1.7) Lipase 429 U/L (73-393) Test 06/01/18 07:37 Glucose (Fingerstick) 118 mg/dL (70-99) Microbiology 05/26/18 Blood Culture - Final, Complete NO GROWTH AFTER 5 DAYS Medications Current Medications Fentanyl Citrate (Fentanyl 2ml Vial) 50 mcg 1X ONCE IV Last administered on 20:01; Start 05/25/18 at 19:45; Stop 05/25/18 at 19:46; Status DC Ondansetron HCl (Zofran) 4 mg 1X ONCE IV Last administered on 05/25/18 20:01; Start 05/25/18 at 19:45; Stop 05/25/18 at 19:46; Status DC Famotidine (Pepcid Vial) 20 mg 1X ONCE IVP Last administered on 05/25/18at 20:00 ; Start 05/25/18 at 19:45; Stop 05/25/18 at 19:46; Status DC Sodium Chloride 1,000 ml @ 1,000 mls/hr 1X ONCE IV Last administered on at 20:00; Start 05/25/18 at 19:45; Stop 05/25/18 at 20:44; Status DC Sodium Chloride 1,000 ml @ 1,000 mls/hr 1X ONCE IV Last administered on at 21:40; Start 05/25/18 at 21:15; Stop 05/25/18 at 22:14; Status DC Sodium Chloride 500 ml @ 500 mls/hr 1X ONCE IV ; Start 05/25/18 at 21:15; Stop 05/25/18 at 21:15; Status DC Piperacillin Sod/ Tazobactam Sod 3.375 gm/Sodium Chloride 50 ml @ 100 mls/hr 1X ONCE IV Last administered on 05/25/18at 21:40; Start 05/25/18 at 21:15; Stop 05/25/18 at 21:44; Status DC Insulin Human Regular (HumuLIN R VIAL) 10 unit 1X ONCE IV ; Start 05/25/18 at 21 :15; Stop 05/25/18 at 21:16; Status DC Vancomycin HCl 1.5 gm/Sodium Chloride 500 ml @ 250 mls/hr 1X ONCE IV Last administered on 05/25/18at 22:32; Start 05/25/18 at 21:15; Stop 05/25/18 at 23:14; Status DC Vancomycin HCl (Vanco Per Pharmacy) 1 each PRN DAILY PRN MC SEE COMMENTS Last administered on 05/27/18at 22:37; Start 05/25/18 at 21:30; Stop 05/28/18 at 08:47; Status DC Insulin Human Regular (HumuLIN R VIAL) 5 unit 1X ONCE IV Last administered on 05/25/18at 21:40; Start 05/25/18 at 22:45; Stop 05/25/18 at 22:46; Status DC Ondansetron HCl (Zofran) 4 mg PRN Q8HRS PRN IV NAUSEA/VOMITING 1ST CHOICE; Start 05/26/18 at 00:15; Stop 05/27/18 at 00:14; Status DC Fentanyl Citrate (Fentanyl 2ml Vial) 50 mcg PRN Q2HRS PRN IV SEVERE PAIN Last administered on 05/26/18at 21:33; Start 05/26/18 at 00:15; Stop 05/27/18 at 00:14; Status DC Insulin Human Lispro (HumaLOG) 0-5 UNITS TIDWMEALS SQ Last administered on 05/31at 17:23; Start 05/26/18 at 08:00 Dextrose (Dextrose 50%-Water Syringe) 12.5 gm PRN Q15MIN PRN IV SEE COMMENTS; Start 05/26/18 at 00:15 Vancomycin HCl 1 gm/Sodium Chloride 250 ml @ 250 mls/hr Q24H IV Last administered on 05/26/18 21:34; Start 05/26/18 at 22:00; Stop 05/27/18 at 22:21; Status DC Vancomycin HCl (Vancomycin Trough Level) 1 each 1X ONCE MC Last administered on 05/27/18 21:30; Start 05/27/18 at 21:30; Stop 05/28/18 at 08:47; Status DC Pharmacy Consult (C.diff Med Screen By Rx) 1 each 1X ONCE MC ; Start 05/26/18 at 03:30; Stop 05/26/18 at 03:31; Status Cancel Sodium Chloride 1,000 ml @ 100 mls/hr 1X ONCE IV Last administered on 13:08; Start 05/26/18 at 11:45; Stop 05/26/18 at 21:44; Status DC Sodium Chloride 1,000 ml @ 1,000 mls/hr 1X ONCE IV Last administered on 11:52; Start 05/26/18 at 11:45; Stop 05/26/18 at 12:44; Status DC Pantoprazole Sodium (Protonix) 40 mg DAILYAC PO Last administered on 05/26/18 16:19; Start 05/26/18 at 16:00; Stop 05/26/18 at 23:59; Status DC Famotidine (Pepcid) 20 mg DAILY PO Last administered on 06/01/18 07:59; Start 05/27/18 at 09:00 Lactobacillus Rhamnosus (Culturelle) 1 cap BID PO Last administered on 07:58; Start 05/26/18 at 21:00 Fentanyl Citrate (Fentanyl 2ml Vial) 50 mcg PRN Q2HR PRN IV PAIN Last administered on 06/01/18 00:22; Start 05/27/18 at 09:15 Ferrous Sulfate (Iron Oral Solution) 300 mg BIDWMEALS PO Last administered on 07:59; Start 05/27/18 at 17:00 Piperacillin Sod/ Tazobactam Sod 3.375 gm/Sodium Chloride 50 ml @ 100 mls/hr Q6HRS IV Last administered on 06/01/18 05:48; Start 05/27/18 at 11:30 Aspirin (Ecotrin) 81 mg DAILYWBKFT PO Last administered on 06/01/18 07:59; Start 05/28/18 at 08:00 Ticagrelor (Brilinta) 90 mg BID PO Last administered on 06/01/18 07:58; Start 05/27/18 at 21:00 Metoprolol Tartrate (Lopressor) 25 mg BID PO Last administered on 06/01/18 07: 59; Start 05/27/18 at 21:00 Insulin Human Lispro (HumaLOG) 3 units 1X ONCE SQ Last administered on 21:15; Start 05/27/18 at 20:30; Stop 05/27/18 at 20:36; Status DC Vancomycin HCl 1 gm/Sodium Chloride 250 ml @ 250 mls/hr Q12H IV Last administered on 05/27/18 22:33; Start 05/27/18 at 22:30; Stop 05/28/18 at 08:47; Status DC Vancomycin HCl (Vancomycin Trough Level) 1 each 1X ONCE MC ; Start 05/28/18 at 22:00; Stop 05/28/18 at 22:00; Status DC Insulin Glargine (Lantus) 10 units QHS SQ Last administered on 05/31/18 21:33 ; Start 05/28/18 at 21:00 Linezolid (Zyvox) 600 mg BID PO Last administered on 06/01/18 07:59; Start 05/29/18 at 21:00 Calcium Carbonate/ Glycine (Tums) 500 mg PRN AFTMEALHC PRN PO INDIGESTION Last administered on 05/29/18 17:00; Start 05/29/18 at 16:45 Insulin Human Lispro (HumaLOG) 5 units 1X ONCE SQ Last administered on 21:37; Start 05/29/18 at 21:30; Stop 05/29/18 at 21:31; Status DC Temazepam (Restoril) 7.5 mg PRN QHS PRN PO INSOMNIA Last administered on 21:56; Start 05/30/18 at 13:45 Micafungin Sodium 100 mg/Dextrose 100 ml @ 100 mls/hr Q24H IV Last administered on 05/31/18 14:14; Start 05/30/18 at 14:00 Insulin Human Lispro (HumaLOG) 2 units 1X ONCE SQ Last administered on at 21:09; Start 05/30/18 at 21:00; Stop 05/30/18 at 21:04; Status DC Temazepam (Restoril) 15 mg PRN QHS PRN PO INSOMNIA Last administered on at 22:19; Start 05/31/18 at 22:00 Active Scripts Active Hydrocodone-Apap 5-325 (Hydrocodone Bit/Acetaminophen) 1 Tab Tablet 1 Tab PO PRN Q4HRS PRN MDD 1 Cefdinir 300 Mg Capsule 300 Mg PO BID MDD 1 10 Days Cipro (Ciprofloxacin Hcl) 500 Mg Tablet 1 Tab PO BID 14 Days Biotene Moisturizing Mouth (Saliva Stimulant Agents Comb.3) 44.3 Ml [place] 2 [place] PO PRN Q15MIN PRN 30 Days Culturelle (Lactobacillus Rhamnosus Gg) 1 Each Cap.sprink 1 Cap PO BID 28 Days Lipitor (Atorvastatin Calcium) 40 Mg Tablet 1 Tab PO QHS Aspirin Ec (Aspirin) 81 Mg Tablet.dr 81 Mg PO DAILYWBKFT Brilinta (Ticagrelor) 90 Mg Tablet 90 Mg PO BID Reported Proair Hfa Inhaler (Albuterol Sulfate) 8.5 Gm Hfa.aer.ad 2 Puff INH PRN Q6HRS PRN Multivitamins (Multivitamin) 1 Each Tablet 1 Tab PO DAILY Magnesium Oxide 400 Mg Tablet 1 Tab PO DAILY Lantus Solostar (Insulin Glargine,Hum.rec.anlog) 100 Unit/1 Ml Insuln.pen 10 Unit SQ QHS Metformin Hcl 500 Mg Tablet 500 Mg PO BIDWMEALS Soma (Carisoprodol) 350 Mg Tablet 1 Tab PO BID Omeprazole 40 Mg Capsule.dr 1 Cap PO DAILY Symbicort 80-4.5 Mcg Inhaler (Budesonide/Formoterol Fumarate) 10.2 Gm Hfa.aer.ad 1 Puff IH BID Amaryl (Glimepiride) 4 Mg Tablet 1 Tab PO DAILY Amlodipine Besylate 5 Mg Tablet 5 Mg PO DAILY Carvedilol (Carvedilol) 12.5 Mg Tablet 1 Tab PO BID Vitamin D3 (Cholecalciferol (Vitamin D3)) 1,000 Unit Tablet 2,000 Tab PO DAILY Vitals/I & O Vital Sign - Last 24 Hours 05/31/18 05/31/18 05/31/18 05/31/18 11:00 12:06 15:00 17:26 Temp 97.4 98.0 97.4 98.0 Pulse 103 102 Resp 18 18 B/P (MAP) 101/63 (76) 106/57 (73) Pulse Ox 99 98 O2 Delivery Room Air Room Air Room Air Room Air 05/31/18 05/31/18 05/31/18 05/31/18 19:00 20:00 21:27 22:13 Temp 97.6 97.6 Pulse 118 118 Resp 18 20 B/P (MAP) 137/80 (99) 137/80 Pulse Ox 98 98 O2 Delivery Room Air Room Air Room Air 05/31/18 06/01/18 06/01/18 06/01/18 23:00 00:22 00:52 03:00 Temp 98.3 97.8 98.3 97.8 Pulse 99 99 Resp 18 20 20 18 B/P (MAP) 108/66 (80) 107/73 (84) Pulse Ox 92 92 98 98 O2 Delivery Room Air Room Air Room Air Room Air 06/01/18 06/01/18 07:00 07:59 Temp 97.6 97.6 Pulse 110 99 Resp 16 B/P (MAP) 103/55 (71) 107/73 Pulse Ox 97 O2 Delivery Room Air Intake and Output 05/31/18 05/31/18 06/01/18 14:59 22:59 06:59 Intake Total 360 ml 240 ml 100 ml Output Total 650 ml 450 ml 550 ml Balance -290 ml -210 ml -450 ml Nutrition Consultation Dietary Evaluation: Recommendations by RD: Increase Calorie Intake, Protein supplementation Comments: REC continue ADA diet per pt. past history of diabetes Rec. add cardiac diet Expected Outcomes/Goals: P.O. intake >75% estimated needs Interpretation of weight loss: >10% in 6 months Malnutrition Findings: Body Fat Depletion (Non Severe: Mild Depletion Weight Status: Appropriate CLAUDIO BOUDREAUX MD Jun 01, 2018 09:53
--- NOTE | 2018-06-01 10:11 | PDOC ---
PROGRESS NOTES Subjective Subjective feels better today Objective Objective Vital Signs Date Time Temp Pulse Resp B/P (MAP) Pulse Ox O2 Delivery O2 Flow Rate FiO2 06/01/18 07:59 99 107/73 06/01/18 07:00 97.6 16 97 Room Air 97.6 Intake and Output 06/01/18 07:00 Intake Total 700 ml Output Total 1650 ml Balance -950 ml Intake Oral 700 ml Stool Total 1650 ml # Voids 1 Physical Exam Abdomen: Soft, No tenderness Heart: Regular rate, Other (2/6 systolic murmur) Extremities: No cyanosis, No edema General: Alert, Oriented X3, Cooperative, No acute distress HEENT: Atraumatic, Mucous membr. moist/pink Lungs: Other (diminished bases) MUSCULOSKELETAL: Osteoarthritic changes both hands Neuro: Normal speech, Sensation intact Psych/Mental Status: Mental status NL, Mood NL Skin: No breakdown, No significant lesion Diagnosis Problem List Problems Medical Problems: (1) Hyperglycemia Status: Acute (2) Hyperkalemia Status: Acute (3) Severe sepsis Status: Acute Assessment Assessment Problems Medical Problems: (1) Hyperglycemia Status: Acute (2) Hyperkalemia Status: Acute (3) Severe sepsis Status: Acute 1. Sepsis, The patient continued to be on antibiotic. His vancomycin was discontinued. He has been afebrile; however, his white cell count is trending upward and today is 12,000. 2. Hypokalemia and hypernatremia have resolved. 3. Acute kidney injury, resolved. His creatinine came down from 1.5 to 1 mg. 4. Transaminitis, improving. His alkaline phosphatase has normalized. AST, ALT continued to be slightly elevated. 5. Acute pancreatitis. Her serum lipase continued to be slightly elevated at 631. 6. Persistent sinus tachycardia has resolved. In fact, his heart rate now is in the 60s. He was seen in consultation by the coal shoveler and echocardiogram showed that ejection fraction was about 40% with global hypokinesis, thyroid function, however, was normal. PLAN: spoke with ID . ? CT abd in am. wbc 12. cr normal. pt/ot/ rehab consult id consult appreciated. To continue with IV antibiotic. Continue with famotidine. Continue to monitor his blood sugar and adjust insulin as needed. Plan Plan of Care Problems Medical Problems: (1) Hyperglycemia Status: Acute (2) Hyperkalemia Status: Acute (3) Severe sepsis Status: Acute Comment Review of Relevant I have reviewed the following items mukesh (where applicable) has been applied. Labs Laboratory Tests Test 05/31/18 11:42 05/31/18 16:24 05/31/18 20:44 06/01/18 03:15 Glucose (Fingerstick) 248 mg/dL (70-99) 271 mg/dL (70-99) 212 mg/dL (70-99) White Blood Count 12.6 x10^3/uL (4.0-11.0) Red Blood Count 3.78 x10^6/uL (4.30-5.70) Hemoglobin 10.7 g/dL (13.0-17.5) Hematocrit 33.2 % (39.0-53.0) Mean Corpuscular Volume 88 fL (79-100) Mean Corpuscular Hemoglobin 28 pg (25-35) Mean Corpuscular Hemoglobin Concent 32 g/dL (31-37) Red Cell Distribution Width 16.1 % (11.5-14.5) Platelet Count 789 x10^3/uL (140-400) Neutrophils (%) (Auto) 69 % (31-73) Lymphocytes (%) (Auto) 18 % (24-48) Monocytes (%) (Auto) 8 % (0-9) Eosinophils (%) (Auto) 4 % (0-3) Basophils (%) (Auto) 1 % (0-3) Neutrophils # (Auto) 8.7 x10^3uL (1.8-7.7) Lymphocytes # (Auto) 2.3 x10^3/uL (1.0-4.8) Monocytes # (Auto) 1.0 x10^3/uL (0.0-1.1) Eosinophils # (Auto) 0.5 x10^3/uL (0.0-0.7) Basophils # (Auto) 0.1 x10^3/uL (0.0-0.2) Sodium Level 137 mmol/L (136-145) Potassium Level 4.1 mmol/L (3.5-5.1) Chloride Level 101 mmol/L (98-107) Carbon Dioxide Level 22 mmol/L (21-32) Anion Gap 14 (6-14) Blood Urea Nitrogen 22 mg/dL (8-26) Creatinine 1.1 mg/dL (0.7-1.3) Estimated GFR (Cockcroft-Gault) 64.2 BUN/Creatinine Ratio 20 (6-20) Glucose Level 115 mg/dL (70-99) Calcium Level 8.8 mg/dL (8.5-10.1) Total Bilirubin 0.2 mg/dL (0.2-1.0) Aspartate Amino Transf (AST/SGOT) 27 U/L (15-37) Alanine Aminotransferase (ALT/SGPT) 57 U/L (16-63) Alkaline Phosphatase 91 U/L (46-116) Total Protein 7.1 g/dL (6.4-8.2) Albumin 2.7 g/dL (3.4-5.0) Albumin/Globulin Ratio 0.6 (1.0-1.7) Lipase 429 U/L (73-393) Test 06/01/18 07:37 Glucose (Fingerstick) 118 mg/dL (70-99) Microbiology 05/26/18 Blood Culture - Final, Complete NO GROWTH AFTER 5 DAYS Medications Current Medications Temazepam (Restoril) 15 mg PRN QHS PRN PO INSOMNIA Last administered on at 22:19; Start 05/31/18 at 22:00 Vitals/I & O Vital Sign - Last 24 Hours 05/31/18 05/31/18 05/31/18 05/31/18 11:00 12:06 15:00 17:26 Temp 97.4 98.0 97.4 98.0 Pulse 103 102 Resp 18 18 B/P (MAP) 101/63 (76) 106/57 (73) Pulse Ox 99 98 O2 Delivery Room Air Room Air Room Air Room Air 05/31/18 05/31/18 05/31/18 05/31/18 19:00 20:00 21:27 22:13 Temp 97.6 97.6 Pulse 118 118 Resp 18 20 B/P (MAP) 137/80 (99) 137/80 Pulse Ox 98 98 O2 Delivery Room Air Room Air Room Air 05/31/18 06/01/18 06/01/18 06/01/18 23:00 00:22 00:52 03:00 Temp 98.3 97.8 98.3 97.8 Pulse 99 99 Resp 18 20 20 18 B/P (MAP) 108/66 (80) 107/73 (84) Pulse Ox 92 92 98 98 O2 Delivery Room Air Room Air Room Air Room Air 06/01/18 06/01/18 07:00 07:59 Temp 97.6 97.6 Pulse 110 99 Resp 16 B/P (MAP) 103/55 (71) 107/73 Pulse Ox 97 O2 Delivery Room Air Intake and Output 05/31/18 05/31/18 06/01/18 15:00 23:00 07:00 Intake Total 360 ml 240 ml 100 ml Output Total 650 ml 650 ml 350 ml Balance -290 ml -410 ml -250 ml Nutrition Consultation Dietary Evaluation: Recommendations by RD: Increase Calorie Intake, Protein supplementation Comments: REC continue ADA diet per pt. past history of diabetes Rec. add cardiac diet Expected Outcomes/Goals: P.O. intake >75% estimated needs Interpretation of weight loss: >10% in 6 months Malnutrition Findings: Body Fat Depletion (Non Severe: Mild Depletion Weight Status: Appropriate JASPER MENDENHALL MD Jun 01, 2018 10:11
[2018-06-01] MEDS ORDERED: HYDROcodone/APAP 5/325MG 1 TAB TABLET PO PRN (10:45)
[2018-06-01 11:00] VITALS: BP 105/73
--- NOTE | 2018-06-01 13:18 | NUR ---
SW following. Discussed with RN, pt on PO zyvox, and IV abx. SW awaiting confirmation of which abx pt will need at discharge to inform Getachew Hickey. SW will continue to follow.
--- NOTE | 2018-06-01 14:56 | PDOC ---
Subjective: Subjective: Talking on the phone. Objective: Objective: Reviewed chart. Vital Signs: Vital Signs Date Time Temp Pulse Resp B/P (MAP) Pulse Ox O2 Delivery O2 Flow Rate FiO2 06/01/18 11:00 98.1 42 16 105/73 (84) 97 Room Air 98.1 Labs: Laboratory Tests Test 05/31/18 16:24 05/31/18 20:44 06/01/18 03:15 06/01/18 07:37 Glucose (Fingerstick) 271 mg/dL 212 mg/dL 118 mg/dL White Blood Count 12.6 x10^3/uL Red Blood Count 3.78 x10^6/uL Hemoglobin 10.7 g/dL Hematocrit 33.2 % Mean Corpuscular Volume 88 fL Mean Corpuscular Hemoglobin 28 pg Mean Corpuscular Hemoglobin Concent 32 g/dL Red Cell Distribution Width 16.1 % Platelet Count 789 x10^3/uL Neutrophils (%) (Auto) 69 % Lymphocytes (%) (Auto) 18 % Monocytes (%) (Auto) 8 % Eosinophils (%) (Auto) 4 % Basophils (%) (Auto) 1 % Neutrophils # (Auto) 8.7 x10^3uL Lymphocytes # (Auto) 2.3 x10^3/uL Monocytes # (Auto) 1.0 x10^3/uL Eosinophils # (Auto) 0.5 x10^3/uL Basophils # (Auto) 0.1 x10^3/uL Sodium Level 137 mmol/L Potassium Level 4.1 mmol/L Chloride Level 101 mmol/L Carbon Dioxide Level 22 mmol/L Anion Gap 14 Blood Urea Nitrogen 22 mg/dL Creatinine 1.1 mg/dL Estimated GFR (Cockcroft-Gault) 64.2 BUN/Creatinine Ratio 20 Glucose Level 115 mg/dL Calcium Level 8.8 mg/dL Total Bilirubin 0.2 mg/dL Aspartate Amino Transf (AST/SGOT) 27 U/L Alanine Aminotransferase (ALT/SGPT) 57 U/L Alkaline Phosphatase 91 U/L Total Protein 7.1 g/dL Albumin 2.7 g/dL Albumin/Globulin Ratio 0.6 Lipase 429 U/L Test 06/01/18 12:01 Glucose (Fingerstick) 214 mg/dL PE: GEN: NAD, on the phone LUNGS: room air NEURO/PSYCH: A & O 3 A/P: 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 Consideration for repeating CT stand if ongoing elevation in WBC. EMILY KNIGHT Jun 01, 2018 14:56
[2018-06-01] MEDS: MICAFUNGIN 100 MG in IV DEXTROSE 5% 100ML 100 ML IV SCH (14:59)
[2018-06-01 15:00] VITALS: BP 111/58
[2018-06-01 20:11] VITALS: BP 108/65
[2018-06-01] MEDS: INSULIN GLARGINE 300 UNITS/3 ML INSULN.PEN. SQ SCH (21:21)
[2018-06-01] MEDS: TEMAZEPAM 15 MG CAPSULE PO PRN (22:16)
[2018-06-01 23:45] VITALS: BP 109/72
[2018-06-02] MEDS: PIPERACILLIN/TAZOBACTAM 3.375 GM in IV NORMAL SALINE 50ML 50 ML IV SCH ×3 (00:48→13:07)
[2018-06-02 03:38] VITALS: BP 114/82
[2018-06-02 07:00] VITALS: BP 105/72
[2018-06-02] MEDS: INSULIN LISPRO 300 UNITS/3 ML INSULN.PEN. SQ SCH ×2 (08:00→13:12)
[2018-06-02] MEDS: ASPIRIN ENTERIC COATED 81 MG TABLET.DR. PO SCH (08:04)
[2018-06-02] MEDS: FAMOTIDINE 20 MG TABLET. PO SCH (08:04)
[2018-06-02] MEDS: LACTOBACILLUS RHAMNOSUS GG 1 CAPSULE. PO SCH (08:05)
[2018-06-02] MEDS: LINEZOLID 600 MG TABLET PO SCH (08:05)
[2018-06-02] MEDS: oxyCODONE IR 5 MG TABLET PO PRN ×2 (08:05→15:02)
[2018-06-02] MEDS: METOPROLOL TART IMMED RELEASE 25 MG TABLET. PO SCH (08:05)
[2018-06-02] MEDS: TICAGRELOR 90 MG TABLET. PO SCH (08:06)
[2018-06-02] MEDS: FERROUS SULFATE ORAL 300 MG/5 ML SOLUTION. PO SCH (08:06)
--- NOTE | 2018-06-02 09:27 | RAD ---
Single view chest dated 06/02/2018: Comparison made to 04/20/2018. Clinical Indication: Diminished breath sounds. Findings: Single upright portable exam of the chest was performed. Heart size and mediastinal contours are within normal limits given technique. The lungs are clear without evidence of focal consolidation. Vascular interstitium is within normal limits. Lungs are somewhat hyperinflated Impression:: No acute radiographic abnormality. Findings suggestive of COPD. Electronically signed by: Jose Luis Tamayo MD (06/02/2018 9:24 AM) [id number]
--- NOTE | 2018-06-02 09:35 | PDOC ---
Infectious Disease Note Subjective Subjective feeling good, no complaints, ready to go home/rehab ROS ROS no n/v/d/sob Vital Sign Vital Signs Vital Signs Date Time Temp Pulse Resp B/P (MAP) Pulse Ox O2 Delivery O2 Flow Rate FiO2 06/02/18 08:05 98 Room Air 06/02/18 08:05 101 105/72 06/02/18 07:00 97.9 18 97.9 Physical Exam PHYSICAL EXAM GENERAL: Propped up in bed, alert, relaxed appearance HEENT: Pupils equal and reactive. Oral cavity, pharynx clear, dentures, no thrush NECK: Supple, no JVD. LUNGS: Clear to auscultation, HEART: S1, S2. ABDOMEN: Soft, ostomy bag sealed; midline incision, well-approx, min red, no drainage, NT EXTREMITIES: No clubbing, cyanosis or gross edema. SKIN: Warm to touch without signs of rash. NEUROLOGIC: Alert, nonfocal and appropriate. Labs Lab Laboratory Tests Test 06/01/18 12:01 06/01/18 16:49 06/01/18 20:49 06/02/18 07:08 Glucose (Fingerstick) 214 mg/dL (70-99) 186 mg/dL (70-99) 262 mg/dL (70-99) 128 mg/dL (70-99) Micro Microbiology 05/26/18 Blood Culture - Final, Complete NO GROWTH AFTER 5 DAYS Objective Assessment Leukocytosis, C diff PCR neg, 05/27 - mild increase? Zyvox/Marita ? viral? 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 Recurrent abdominal abscesses s/p drain on 05/11 with growth of mixed mireya, yeast and E. coli (R quinolones, amp, cefuroxime) - h/o IR drain on 04/21 with growth of Bacteroides, E. coli (R quinolones), Klebsiella and (yeast on GS) Transaminitis - improved with high lipase - better but sill elevated Lactic acidosis, better DENNIS better DM poorly controlled s/p cystoscopy with bilateral stent placement, 05/15. Urine c/s 05/17 neg Chronic anemia GERD S/p cholecystectomy CAD Plan Plan of Care change antibiotics to po cont ostomy care d/c ALEXA Khanna MD Jun 02, 2018 09:35
[2018-06-02 09:55] LABS: BASO # 0.1 x10^3/uL (0.0-0.2); BASO % 1 % (0-3); EOS # 0.2 x10^3/uL (0.0-0.7); EOS % 2 % (0-3); HEMATOCRIT 37.1 % (39.0-53.0); HEMOGLOBIN 11.9 g/dL (13.0-17.5); LYMPH # 1.6 x10^3/uL (1.0-4.8); LYMPH % 14 % (24-48); MEAN CORPUSCULAR HEMOGLOBIN 28 pg (25-35); MEAN CORPUSCULAR HGB CONC 32 g/dL (31-37); MEAN CORPUSCULAR VOLUME 89 fL (79-100); MONO # 0.8 x10^3/uL (0.0-1.1); MONO % 7 % (0-9); NEUT # 8.9 x10^3uL (1.8-7.7); NEUT % 76 % (31-73); PLATELET COUNT 780 x10^3/uL (140-400); RED BLOOD COUNT 4.19 x10^6/uL (4.30-5.70); RED CELL DISTRIBUTION WIDTH 16.4 % (11.5-14.5); WHITE BLOOD COUNT 11.6 x10^3/uL (4.0-11.0)
[2018-06-02] MEDS ORDERED: IOHEXOL 240 MG/ML 50ML VIAL. PO ONE (10:00)
[2018-06-02] MEDS ORDERED: CONTRAST GIVEN. MC PRN (10:00)
--- NOTE | 2018-06-02 10:09 | PDOC ---
PROGRESS NOTES Subjective Subjective No new complaints. Objective Objective Vital Signs Date Time Temp Pulse Resp B/P (MAP) Pulse Ox O2 Delivery O2 Flow Rate FiO2 06/02/18 08:05 98 Room Air 06/02/18 08:05 101 105/72 06/02/18 07:00 97.9 18 97.9 Intake and Output 06/02/18 06:59 Intake Total 480 ml Output Total 1825 ml Balance -1345 ml Intake Oral 480 ml Stool Total 725 ml Urine/Stool Mix 1100 ml # Voids 3 Physical Exam Physical Exam He is comfortable supine in bed but has been walking with roller walker independently. Assessment Assessment Problems Medical Problems: (1) Hyperglycemia Status: Acute (2) Hyperkalemia Status: Acute (3) Severe sepsis Status: Acute Plan Plan of Care To SNF or home with home health follow up when medically stable. Comment Review of Relevant I have reviewed the following items mukesh (where applicable) has been applied. Labs Laboratory Tests Test 05/31/18 11:42 05/31/18 16:24 05/31/18 20:44 06/01/18 03:15 Glucose (Fingerstick) 248 mg/dL (70-99) 271 mg/dL (70-99) 212 mg/dL (70-99) White Blood Count 12.6 x10^3/uL (4.0-11.0) Red Blood Count 3.78 x10^6/uL (4.30-5.70) Hemoglobin 10.7 g/dL (13.0-17.5) Hematocrit 33.2 % (39.0-53.0) Mean Corpuscular Volume 88 fL (79-100) Mean Corpuscular Hemoglobin 28 pg (25-35) Mean Corpuscular Hemoglobin Concent 32 g/dL (31-37) Red Cell Distribution Width 16.1 % (11.5-14.5) Platelet Count 789 x10^3/uL (140-400) Neutrophils (%) (Auto) 69 % (31-73) Lymphocytes (%) (Auto) 18 % (24-48) Monocytes (%) (Auto) 8 % (0-9) Eosinophils (%) (Auto) 4 % (0-3) Basophils (%) (Auto) 1 % (0-3) Neutrophils # (Auto) 8.7 x10^3uL (1.8-7.7) Lymphocytes # (Auto) 2.3 x10^3/uL (1.0-4.8) Monocytes # (Auto) 1.0 x10^3/uL (0.0-1.1) Eosinophils # (Auto) 0.5 x10^3/uL (0.0-0.7) Basophils # (Auto) 0.1 x10^3/uL (0.0-0.2) Sodium Level 137 mmol/L (136-145) Potassium Level 4.1 mmol/L (3.5-5.1) Chloride Level 101 mmol/L (98-107) Carbon Dioxide Level 22 mmol/L (21-32) Anion Gap 14 (6-14) Blood Urea Nitrogen 22 mg/dL (8-26) Creatinine 1.1 mg/dL (0.7-1.3) Estimated GFR (Cockcroft-Gault) 64.2 BUN/Creatinine Ratio 20 (6-20) Glucose Level 115 mg/dL (70-99) Calcium Level 8.8 mg/dL (8.5-10.1) Total Bilirubin 0.2 mg/dL (0.2-1.0) Aspartate Amino Transf (AST/SGOT) 27 U/L (15-37) Alanine Aminotransferase (ALT/SGPT) 57 U/L (16-63) Alkaline Phosphatase 91 U/L (46-116) Total Protein 7.1 g/dL (6.4-8.2) Albumin 2.7 g/dL (3.4-5.0) Albumin/Globulin Ratio 0.6 (1.0-1.7) Lipase 429 U/L (73-393) Test 06/01/18 07:37 06/01/18 12:01 06/01/18 16:49 06/01/18 20:49 Glucose (Fingerstick) 118 mg/dL (70-99) 214 mg/dL (70-99) 186 mg/dL (70-99) 262 mg/dL (70-99) Test 06/02/18 07:08 06/02/18 09:05 Glucose (Fingerstick) 128 mg/dL (70-99) White Blood Count 11.6 x10^3/uL (4.0-11.0) Red Blood Count 4.19 x10^6/uL (4.30-5.70) Hemoglobin 11.9 g/dL (13.0-17.5) Hematocrit 37.1 % (39.0-53.0) Mean Corpuscular Volume 89 fL (79-100) Mean Corpuscular Hemoglobin 28 pg (25-35) Mean Corpuscular Hemoglobin Concent 32 g/dL (31-37) Red Cell Distribution Width 16.4 % (11.5-14.5) Platelet Count 780 x10^3/uL (140-400) Neutrophils (%) (Auto) 76 % (31-73) Lymphocytes (%) (Auto) 14 % (24-48) Monocytes (%) (Auto) 7 % (0-9) Eosinophils (%) (Auto) 2 % (0-3) Basophils (%) (Auto) 1 % (0-3) Neutrophils # (Auto) 8.9 x10^3uL (1.8-7.7) Lymphocytes # (Auto) 1.6 x10^3/uL (1.0-4.8) Monocytes # (Auto) 0.8 x10^3/uL (0.0-1.1) Eosinophils # (Auto) 0.2 x10^3/uL (0.0-0.7) Basophils # (Auto) 0.1 x10^3/uL (0.0-0.2) Laboratory Tests Test 06/01/18 12:01 06/01/18 16:49 06/01/18 20:49 06/02/18 07:08 Glucose (Fingerstick) 214 mg/dL (70-99) 186 mg/dL (70-99) 262 mg/dL (70-99) 128 mg/dL (70-99) Test 06/02/18 09:05 White Blood Count 11.6 x10^3/uL (4.0-11.0) Red Blood Count 4.19 x10^6/uL (4.30-5.70) Hemoglobin 11.9 g/dL (13.0-17.5) Hematocrit 37.1 % (39.0-53.0) Mean Corpuscular Volume 89 fL (79-100) Mean Corpuscular Hemoglobin 28 pg (25-35) Mean Corpuscular Hemoglobin Concent 32 g/dL (31-37) Red Cell Distribution Width 16.4 % (11.5-14.5) Platelet Count 780 x10^3/uL (140-400) Neutrophils (%) (Auto) 76 % (31-73) Lymphocytes (%) (Auto) 14 % (24-48) Monocytes (%) (Auto) 7 % (0-9) Eosinophils (%) (Auto) 2 % (0-3) Basophils (%) (Auto) 1 % (0-3) Neutrophils # (Auto) 8.9 x10^3uL (1.8-7.7) Lymphocytes # (Auto) 1.6 x10^3/uL (1.0-4.8) Monocytes # (Auto) 0.8 x10^3/uL (0.0-1.1) Eosinophils # (Auto) 0.2 x10^3/uL (0.0-0.7) Basophils # (Auto) 0.1 x10^3/uL (0.0-0.2) Microbiology 05/26/18 Blood Culture - Final, Complete NO GROWTH AFTER 5 DAYS Medications Current Medications Fentanyl Citrate (Fentanyl 2ml Vial) 50 mcg 1X ONCE IV Last administered on 20:01; Start 05/25/18 at 19:45; Stop 05/25/18 at 19:46; Status DC Ondansetron HCl (Zofran) 4 mg 1X ONCE IV Last administered on 05/25/18 20:01; Start 05/25/18 at 19:45; Stop 05/25/18 at 19:46; Status DC Famotidine (Pepcid Vial) 20 mg 1X ONCE IVP Last administered on 05/25/18 20:00 ; Start 05/25/18 at 19:45; Stop 05/25/18 at 19:46; Status DC Sodium Chloride 1,000 ml @ 1,000 mls/hr 1X ONCE IV Last administered on 20:00; Start 05/25/18 at 19:45; Stop 05/25/18 at 20:44; Status DC Sodium Chloride 1,000 ml @ 1,000 mls/hr 1X ONCE IV Last administered on at 21:40; Start 05/25/18 at 21:15; Stop 05/25/18 at 22:14; Status DC Sodium Chloride 500 ml @ 500 mls/hr 1X ONCE IV ; Start 05/25/18 at 21:15; Stop 05/25/18 at 21:15; Status DC Piperacillin Sod/ Tazobactam Sod 3.375 gm/Sodium Chloride 50 ml @ 100 mls/hr 1X ONCE IV Last administered on 05/25/18at 21:40; Start 05/25/18 at 21:15; Stop 05/25/18 at 21:44; Status DC Insulin Human Regular (HumuLIN R VIAL) 10 unit 1X ONCE IV ; Start 05/25/18 at 21 :15; Stop 05/25/18 at 21:16; Status DC Vancomycin HCl 1.5 gm/Sodium Chloride 500 ml @ 250 mls/hr 1X ONCE IV Last administered on 05/25/18at 22:32; Start 05/25/18 at 21:15; Stop 05/25/18 at 23:14; Status DC Vancomycin HCl (Vanco Per Pharmacy) 1 each PRN DAILY PRN MC SEE COMMENTS Last administered on 05/27/18at 22:37; Start 05/25/18 at 21:30; Stop 05/28/18 at 08:47; Status DC Insulin Human Regular (HumuLIN R VIAL) 5 unit 1X ONCE IV Last administered on 05/25/18at 21:40; Start 05/25/18 at 22:45; Stop 05/25/18 at 22:46; Status DC Ondansetron HCl (Zofran) 4 mg PRN Q8HRS PRN IV NAUSEA/VOMITING 1ST CHOICE; Start 05/26/18 at 00:15; Stop 05/27/18 at 00:14; Status DC Fentanyl Citrate (Fentanyl 2ml Vial) 50 mcg PRN Q2HRS PRN IV SEVERE PAIN Last administered on 05/26/18at 21:33; Start 05/26/18 at 00:15; Stop 05/27/18 at 00:14; Status DC Insulin Human Lispro (HumaLOG) 0-5 UNITS TIDWMEALS SQ Last administered on 06/01at 18:31; Start 05/26/18 at 08:00 Dextrose (Dextrose 50%-Water Syringe) 12.5 gm PRN Q15MIN PRN IV SEE COMMENTS; Start 05/26/18 at 00:15 Vancomycin HCl 1 gm/Sodium Chloride 250 ml @ 250 mls/hr Q24H IV Last administered on 05/26/18 21:34; Start 05/26/18 at 22:00; Stop 05/27/18 at 22:21; Status DC Vancomycin HCl (Vancomycin Trough Level) 1 each 1X ONCE MC Last administered on 05/27/18at 21:30; Start 05/27/18 at 21:30; Stop 05/28/18 at 08:47; Status DC Pharmacy Consult (C.diff Med Screen By Rx) 1 each 1X ONCE MC ; Start 05/26/18 at 03:30; Stop 05/26/18 at 03:31; Status Cancel Sodium Chloride 1,000 ml @ 100 mls/hr 1X ONCE IV Last administered on 13:08; Start 05/26/18 at 11:45; Stop 05/26/18 at 21:44; Status DC Sodium Chloride 1,000 ml @ 1,000 mls/hr 1X ONCE IV Last administered on at 11:52; Start 05/26/18 at 11:45; Stop 05/26/18 at 12:44; Status DC Pantoprazole Sodium (Protonix) 40 mg DAILYAC PO Last administered on 05/26/18 16:19; Start 05/26/18 at 16:00; Stop 05/26/18 at 23:59; Status DC Famotidine (Pepcid) 20 mg DAILY PO Last administered on 06/02/18at 08:04; Start 05/27/18 at 09:00 Lactobacillus Rhamnosus (Culturelle) 1 cap BID PO Last administered on 08:05; Start 05/26/18 at 21:00 Fentanyl Citrate (Fentanyl 2ml Vial) 50 mcg PRN Q2HR PRN IV PAIN Last administered on 06/01/18 00:22; Start 05/27/18 at 09:15; Stop 06/01/18 at 10:45 ; Status DC Ferrous Sulfate (Iron Oral Solution) 300 mg BIDWMEALS PO Last administered on 08:06; Start 05/27/18 at 17:00 Piperacillin Sod/ Tazobactam Sod 3.375 gm/Sodium Chloride 50 ml @ 100 mls/hr Q6HRS IV Last administered on 06/02/18at 05:45; Start 05/27/18 at 11:30 Aspirin (Ecotrin) 81 mg DAILYWBKFT PO Last administered on 06/02/18 08:04; Start 05/28/18 at 08:00 Ticagrelor (Brilinta) 90 mg BID PO Last administered on 06/02/18 08:06; Start 05/27/18 at 21:00 Metoprolol Tartrate (Lopressor) 25 mg BID PO Last administered on 06/02/18 08: 05; Start 05/27/18 at 21:00 Insulin Human Lispro (HumaLOG) 3 units 1X ONCE SQ Last administered on 21:15; Start 05/27/18 at 20:30; Stop 05/27/18 at 20:36; Status DC Vancomycin HCl 1 gm/Sodium Chloride 250 ml @ 250 mls/hr Q12H IV Last administered on 05/27/18 22:33; Start 05/27/18 at 22:30; Stop 05/28/18 at 08:47; Status DC Vancomycin HCl (Vancomycin Trough Level) 1 each 1X ONCE MC ; Start 05/28/18 at 22:00; Stop 05/28/18 at 22:00; Status DC Insulin Glargine (Lantus) 10 units QHS SQ Last administered on 06/01/18 21:21 ; Start 05/28/18 at 21:00 Linezolid (Zyvox) 600 mg BID PO Last administered on 06/02/18 08:05; Start 05/29/18 at 21:00 Calcium Carbonate/ Glycine (Tums) 500 mg PRN AFTMEALHC PRN PO INDIGESTION Last administered on 05/29/18 17:00; Start 05/29/18 at 16:45 Insulin Human Lispro (HumaLOG) 5 units 1X ONCE SQ Last administered on 21:37; Start 05/29/18 at 21:30; Stop 05/29/18 at 21:31; Status DC Temazepam (Restoril) 7.5 mg PRN QHS PRN PO INSOMNIA Last administered on 21:56; Start 05/30/18 at 13:45; Stop 06/01/18 at 10:45; Status DC Micafungin Sodium 100 mg/Dextrose 100 ml @ 100 mls/hr Q24H IV Last administered on 3/12/19at 14:59; Start 05/30/18 at 14:00 Insulin Human Lispro (HumaLOG) 2 units 1X ONCE SQ Last administered on at 21:09; Start 05/30/18 at 21:00; Stop 05/30/18 at 21:04; Status DC Temazepam (Restoril) 15 mg PRN QHS PRN PO INSOMNIA Last administered on at 22:16; Start 05/31/18 at 22:00 Acetaminophen/ Hydrocodone Bitart (Lortab 5/325) 1 tab PRN Q4HRS PRN PO PAIN Last administered on 06/01/18at 15:01; Start 06/01/18 at 10:45; Stop 06/01/18 at 18:23; Status DC Oxycodone HCl (Roxicodone) 5 mg PRN Q6HRS PRN PO PAIN Last administered on 06/02at 08:05; Start 06/01/18 at 18:30 Iohexol (Omnipaque 240 Mg/ml) 30 ml 1X ONCE PO ; Start 06/02/18 at 10:00; Stop 06/02/18 at 10:01; Status DC Info (CONTRAST GIVEN -- Rx MONITORING) 1 each PRN DAILY PRN MC SEE COMMENTS; Start 06/02/18 at 10:00; Stop 06/04/18 at 09:59 Active Scripts Active Hydrocodone-Apap 5-325 (Hydrocodone Bit/Acetaminophen) 1 Tab Tablet 1 Tab PO PRN Q4HRS PRN MDD 1 Cefdinir 300 Mg Capsule 300 Mg PO BID MDD 1 10 Days Cipro (Ciprofloxacin Hcl) 500 Mg Tablet 1 Tab PO BID 14 Days Biotene Moisturizing Mouth (Saliva Stimulant Agents Comb.3) 44.3 Ml Dimmitt 2 Dimmitt PO PRN Q15MIN PRN 30 Days Culturelle (Lactobacillus Rhamnosus Gg) 1 Each Cap.sprink 1 Cap PO BID 28 Days Lipitor (Atorvastatin Calcium) 40 Mg Tablet 1 Tab PO QHS Aspirin Ec (Aspirin) 81 Mg Tablet.dr 81 Mg PO DAILYWBKFT Brilinta (Ticagrelor) 90 Mg Tablet 90 Mg PO BID Reported Proair Hfa Inhaler (Albuterol Sulfate) 8.5 Gm Hfa.aer.ad 2 Puff INH PRN Q6HRS PRN Multivitamins (Multivitamin) 1 Each Tablet 1 Tab PO DAILY Magnesium Oxide 400 Mg Tablet 1 Tab PO DAILY Lantus Solostar (Insulin Glargine,Hum.rec.anlog) 100 Unit/1 Ml Insuln.pen 10 Unit SQ QHS Metformin Hcl 500 Mg Tablet 500 Mg PO BIDWMEALS Soma (Carisoprodol) 350 Mg Tablet 1 Tab PO BID Omeprazole 40 Mg Capsule.dr 1 Cap PO DAILY Symbicort 80-4.5 Mcg Inhaler (Budesonide/Formoterol Fumarate) 10.2 Gm Hfa.aer.ad 1 Puff IH BID Amaryl (Glimepiride) 4 Mg Tablet 1 Tab PO DAILY Amlodipine Besylate 5 Mg Tablet 5 Mg PO DAILY Carvedilol (Carvedilol) 12.5 Mg Tablet 1 Tab PO BID Vitamin D3 (Cholecalciferol (Vitamin D3)) 1,000 Unit Tablet 2,000 Tab PO DAILY Vitals/I & O Vital Sign - Last 24 Hours 06/01/18 06/01/18 06/01/18 06/01/18 11:00 15:00 15:01 20:00 Temp 98.1 97.9 98.1 97.9 Pulse 42 110 Resp 16 16 B/P (MAP) 105/73 (84) 111/58 (75) Pulse Ox 97 97 O2 Delivery Room Air Room Air Room Air Room Air 06/01/18 06/01/18 06/01/18 06/02/18 20:11 21:14 23:45 03:38 Temp 98.3 97.5 97.9 98.3 97.5 97.9 Pulse 99 99 94 102 Resp 20 18 18 B/P (MAP) 108/65 (79) 108/65 109/72 (84) 114/82 (93) Pulse Ox 96 96 97 O2 Delivery Room Air Room Air Room Air 06/02/18 06/02/18 06/02/18 07:00 08:05 08:05 Temp 97.9 97.9 Pulse 101 101 Resp 18 B/P (MAP) 105/72 (83) 105/72 Pulse Ox 98 98 O2 Delivery Room Air Room Air Intake and Output 06/01/18 06/01/18 06/02/18 14:59 22:59 06:59 Intake Total 480 ml Output Total 750 ml 350 ml 725 ml Balance -750 ml -350 ml -245 ml Nutrition Consultation Dietary Evaluation: Recommendations by RD: Increase Calorie Intake, Protein supplementation Comments: REC continue ADA diet per pt. past history of diabetes Rec. add cardiac diet Expected Outcomes/Goals: P.O. intake >75% estimated needs Interpretation of weight loss: >10% in 6 months Malnutrition Findings: Body Fat Depletion (Non Severe: Mild Depletion Weight Status: Appropriate CLAUDIO BOUDREAUX MD Jun 02, 2018 10:09
[2018-06-02 10:22] LABS: CALCIUM 9.4 mg/dL (8.5-10.1); CREATININE 1.2 mg/dL (0.7-1.3); GFR 58.1; POTASSIUM 4.6 mmol/L (3.5-5.1)
[2018-06-02 10:27] LABS: ALBUMIN/GLOBULIN RATIO 0.6 (1.0-1.7); TOTAL BILIRUBIN 0.3 mg/dL (0.2-1.0)
[2018-06-02 11:00] VITALS: BP 101/75
--- NOTE | 2018-06-02 11:07 | NUR ---
SW following. Discussed with RN, and Dr. Kerr. Pt will need PO Vantin 200 BID for 10 days. SELENE contacted [facility] to advise and to determine if pt can return there for SNU upon discharge. SW will continue to follow.
--- NOTE | 2018-06-02 11:31 | NUR ---
SW following. Pt has been accepted at [facility]. SW awaiting discharge confirmation and paperwork to fax and have transportation set up. RN notified. SW will continue to follow.
--- NOTE | 2018-06-02 12:11 | RAD ---
CT of the abdomen and pelvis without contrast, 06/02/2018: HISTORY: Abdominal infection recent abdominal surgery Multidetector CT imaging was performed following oral ingestion of contrast. No IV contrast was administered as requested. Comparison is made to a study from 05/25/2018. The gallbladder is surgically absent. There is an unchanged 1.1 cm low-density lesion in the lateral aspect of the right lobe of the liver, most likely a cyst. The unopacified liver is otherwise unremarkable. No pancreatic abnormality is seen. The spleen is of normal size. A 6 mm calculus is again noted in the right renal pelvis without evidence of obstruction. There is an additional tiny intrarenal calculus in the right kidney and a single nonobstructing calculus on the left. The unopacified kidneys are otherwise unremarkable. There is moderate aortoiliac calcific plaquing. No abdominal or pelvic adenopathy is seen. The bowel loops are not dilated. There are surgical sutures in the region of the ascending colon. There is an ileostomy in the right midabdomen. A fluid collection seen in retrospect adjacent to the sigmoid colon in the left pelvis on the previous study has regressed. There is a tiny residual fluid collection at this level as best seen on coronal images 35 and 36 of series #4. No new intra-abdominal fluid collection is seen. No free air is evident in the abdomen. IMPRESSION: 1. Right ileostomy with no evidence of bowel obstruction. 2. Regressing small residual left pelvic fluid collection. 3. No drainable abscess is identified. 4. Bilateral nonobstructing intrarenal calculi. PQRS Compliance Statement: One or more of the following individualized dose reduction techniques were utilized for this examination: 1. Automated exposure control 2. Adjustment of the mA and/or kV according to patient size 3. Use of iterative reconstruction technique Electronically signed by: Yehuda Gallo MD (06/02/2018 12:07 PM) [facility]
--- NOTE | 2018-06-02 13:00 | PDOC ---
Subjective: Subjective: No complaints. Objective: Vital Signs: Vital Signs Date Time Temp Pulse Resp B/P (MAP) Pulse Ox O2 Delivery O2 Flow Rate FiO2 06/02/18 08:05 98 Room Air 06/02/18 08:05 101 105/72 06/02/18 07:00 97.9 18 97.9 Labs: Laboratory Tests Test 06/01/18 16:49 06/01/18 20:49 06/02/18 07:08 06/02/18 12:18 Glucose (Fingerstick) 186 mg/dL (70-99) 262 mg/dL (70-99) 128 mg/dL (70-99) 213 mg/dL (70-99) Imaging: CT A/P IMPRESSION: 1. Right ileostomy with no evidence of bowel obstruction. 2. Regressing small residual left pelvic fluid collection. 3. No drainable abscess is identified. 4. Bilateral nonobstructing intrarenal calculi. PE: GEN: NAD LUNGS: CTAB HEART: mildly tachycardic ABD: soft, non-tender, +ostomy NEURO/PSYCH: A & O 3 A/P: Recent sigmoid and ileocolic resection w/ ileostomy and drainage of abscess Leukocytosis (better), chronic anemia, mildly elevated lipase (improving - normal pancreas on CT, s/p kelsy) -- Interval CT results noted above. EMILY KNIGHT Jun 02, 2018 13:00
[2018-06-02 15:00] VITALS: BP 101/75
[2018-06-02] MEDS: MICAFUNGIN 100 MG in IV DEXTROSE 5% 100ML 100 ML IV SCH (15:02)
--- NOTE | 2018-06-02 15:11 | NUR ---
Wound/Ostomy Care Pt seen for Ostomy care follow up. Patient is scheduled to discharge today. Bag removed, skin cleaned with wet washcloths. Skin prepped, then stoma powder applied, then a 4" ostomy ring applied to peristoma, then a 2 piece convex bag placed over stoma. No leakage noted, pt received pain medication during the procedure with some amount of pain, but tolerable. at bedside. No other wounds noted. Call light in reach and bed lowered.
[2018-06-02] MEDS ORDERED: OXYC5CAP PO (15:24)
[2018-06-02] MEDS ORDERED: CEFP200T PO (15:24)
--- NOTE | 2018-06-02 15:26 | SNU/HH DC ---
DISCHARGE ORDERS DISCHARGE INFORMATION: FINAL DIAGNOSIS Problems Medical Problems: (1) Hyperglycemia Status: Acute (2) Hyperkalemia Status: Acute (3) Severe sepsis Status: Acute CONDITION ON DISCHARGE: Stable CODE STATUS: Code Status: Full INTERMEDIATE: SNF STAY <30 DAYS: Yes POST DISCHARGE ORDERS: ACTIVITY ORDERS: Activity as tolerated WEIGHT BEARING STATUS: As tolerated BATHING ORDERS: Shower-keep dressing dry, No Tub Bath until see WOUND/INCISION CARE: Do not change dressing CHECKS AFTER DISCHARGE: CHECKS AFTER DISCHARGE: Check blood press - daily TREATMENT/EQUIPMENT ORDERS: ADAPTIVE EQUIPMENT NEEDED: None Physical Therapy For: Evalulation/Treatment Occupational Therapy For: Evaluation/Treatment DISCHARGE MEDICATIONS: Home Meds Active Scripts Hydrocodone Bit/Acetaminophen (HYDROCODONE-APAP 5-325 ) 1 Tab Tablet, 1 TAB PO PRN Q4HRS PRN for MODERATE PAIN MDD 1, #30 TAB Prov:NATHAN GUTIERREZ MD 05/19/18 Cefdinir (CEFDINIR) 300 Mg Capsule, 300 MG PO BID for sepsis MDD 1 for 10 Days, #20 CAP Prov:NATHAN GUTIERREZ MD 05/19/18 Ciprofloxacin Hcl (CIPRO) 500 Mg Tablet, 1 TAB PO BID for infection for 14 Days , #28 TAB Prov:ASHIA DEVRIES MD 04/26/18 Saliva Stimulant Agents Comb.3 (BIOTENE MOISTURIZING MOUTH) 44.3 Ml Dexter, 2 SPRAY PO PRN Q15MIN PRN for DRY MOUTH for 30 Days, #60 SPRAY Prov:ASHIA DEVRIES MD 04/26/18 Lactobacillus Rhamnosus Gg (CULTURELLE) 1 Each Cap.sprink, 1 CAP PO BID for gut health for 28 Days, #56 CAP Prov:ASHIA DEVRIES MD 04/26/18 Atorvastatin Calcium (LIPITOR) 40 Mg Tablet, 1 TAB PO QHS for CAD, #30 TAB 1 Refill Prov:BROOKE LI APRN 01/22/18 Aspirin (ASPIRIN EC) 81 Mg Tablet.dr, 81 MG PO DAILYWBKFT for CAD, #30 TAB.SR Prov:BROOKE LI APRN 01/22/18 Ticagrelor (BRILINTA) 90 Mg Tablet, 90 MG PO BID for CAD, #60 TAB Prov:BROOKE LI APRN 01/22/18 Reported Medications Albuterol Sulfate (PROAIR HFA INHALER) 8.5 Gm Hfa.aer.ad, 2 PUFF INH PRN Q6HRS PRN for SHORTNESS OF BREATH, INHALER 0 Refills 05/26/18 Multivitamin (MULTIVITAMINS) 1 Each Tablet, 1 TAB PO DAILY for supplement, #90 TAB 3 Refills 05/26/18 Magnesium Oxide (MAGNESIUM OXIDE) 400 Mg Tablet, 1 TAB PO DAILY for supplement, #30 TAB 5 Refills 05/26/18 Insulin Glargine,Hum.rec.anlog (LANTUS SOLOSTAR) 100 Unit/1 Ml Insuln.pen, 10 UNIT SQ QHS for DM, #15 ML 3 Refills 05/26/18 Metformin Hcl (METFORMIN HCL) 500 Mg Tablet, 500 MG PO BIDWMEALS for ANTI- DIABETIC, TAB 0 Refills 04/30/18 Carisoprodol (SOMA) 350 Mg Tablet, 1 TAB PO BID for pain, #60 TAB 01/21/18 Omeprazole (OMEPRAZOLE) 40 Mg Capsule.dr, 1 CAP PO DAILY for GERD, #30 CAP 3 Refills 01/21/18 Budesonide/Formoterol Fumarate (SYMBICORT 80-4.5 MCG INHALER) 10.2 Gm Hfa.aer.ad , 1 PUFF IH BID for copd, INHALER 01/21/18 Glimepiride (AMARYL) 4 Mg Tablet, 1 TAB PO DAILY for diabetic, #30 TAB 5 Refills 01/21/18 Amlodipine Besylate (AMLODIPINE BESYLATE) 5 Mg Tablet, 5 MG PO DAILY for high blood pressure, TAB 01/21/18 Carvedilol (CARVEDILOL ) 12.5 Mg Tablet, 1 TAB PO BID for lower heartate, # 180 TAB 1 Refill 01/21/18 Cholecalciferol (Vitamin D3) (VITAMIN D3) 1,000 Unit Tablet, 2000 TAB PO DAILY for deficiency, #30 TAB 5 Refills 01/21/18 CARL HENDERSON MD Jun 02, 2018 15:26
--- NOTE | 2018-06-02 18:29 | NUR ---
Pt and family was given discharge instructions/follow up information, based on request. Report was called into [facility] at [facility]. Pt will be returning to [facility]. Wound care changed ostomy and pictured before his discharge today. Pt was sent with oral antibiotics. Pt will follow up in [address] Frey for possible scheduled procedure. Pt left at [phone], via wheelchair, escorted by facility transportation. was notified. All belongings left with pt at time of discharge.
--- NOTE | 2018-06-03 04:49 | PN ---
DATE: 06/02/2018 SUBJECTIVE: The patient is resting slightly propped up in bed, in no apparent distress. He is awake and alert. He denied any complaint; however, he continued to have marked tachycardia, worse with movement up to 130 to 140 for which he was seen by the Cardiology team and has had an echocardiogram, which showed that he has reduced ejection fraction at around 40% and his septal motion is consistent with conduction abnormalities with mild global hypokinesis. There was a limited valvular evaluation and does not reveal any systemic significant pathology. Unfortunately, white cell count continued to rise, although he is afebrile. PHYSICAL EXAMINATION: GENERAL: When I saw him this morning, he was pale, extremely cachectic, but no jaundice, cyanosis or thyromegaly. No jugular venous distension. No lower limb edema. VITAL SIGNS: His heart rate was 101, blood pressure was 105/72, temperature was 97.9, respiratory rate was 18 and oxygen saturation was 98% on room air. HEAD, EYES, EARS, NOSE AND THROAT: Showed normocephalic and atraumatic. NECK: Supple. HEART: Showed normal first and second heart sounds. No gallop, rub or murmur. CHEST: Shows central trachea, equal reduced expansion, reduced air entry, vesicular sounds. No crepitation or rhonchi. 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 There is no tenderness. No guarding or rigidity. No organomegaly. All hernial orifices are intact. Bowel sounds are normal. NEUROLOGIC: He is awake, alert and responding appropriately. All cranial nerves are intact. He moves extremities without difficulty. His intake over the last 24 hours was 700 and output was 1650. LABORATORY DATA: As of yesterday, his white cell count was up to 12,600, hemoglobin 11, hematocrit 33, MCV 88 and platelet count of 789,000. His chemistry as of yesterday showed that his serum sodium was 137, potassium 4.1, chloride 101, bicarbonate 22, anion gap of 14, BUN 22, creatinine 1.1, estimated GFR was 64 mL per minute, his glucose 115, calcium was 8.8. Total bilirubin, AST, ALT, alkaline phosphatase were normal. His total protein was 7.1 and albumin was 2.7. His B12 was 429 mcg. ASSESSMENT: 1. Sepsis, the source of which is not clear. The patient continues to be on an antibiotic. His vancomycin was discontinued. He has been afebrile; however, his white cell count is trending upwards and as of yesterday it was more than 12,000. 2. Hypokalemia and hyponatremia have resolved. 3. Acute kidney injury, resolved. In fact, his creatinine came down from 1.5 to 1.1. 4. Transaminitis, improving. His alkaline phosphatase has normalized. AST and ALT continued to be slightly elevated. 5. Acute pancreatitis. His serum lipase continued to be slightly elevated. 6. Persistent sinus tachycardia. The patient was seen in consultation by title vehicle service attendant and echocardiogram showed he has mild ejection fraction of about 40% with global hypokinesis. 7. His thyroid function tests were normal. PLAN: To continue with present management as the Infectious Disease are planning to repeat his CT scan of the abdomen and pelvis. CARL HENDERSON MD DR: BRITTNY/gloria JOB#: [id number] / [id number]
--- NOTE | 2018-07-01 20:12 | DS ---
DATE OF DISCHARGE: 06/02/2018 HOSPITAL COURSE: The patient is an 82-year-old male patient who was admitted from [facility] where he went there for rehabilitation. He apparently had lab work done there, which showed that he has marked leukocytosis with a white cell count of 19,000. He also was noted to be dehydrated. His BUN and creatinine has dramatically risen compared to previous lab work and therefore, the patient was sent to the Emergency Room of [facility] where he was found to have hyponatremia, hyperkalemia, acute kidney injury and marked leukocytosis. He also had lactic acidosis, was admitted with sepsis. 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 There was no evidence of bowel obstruction; however, there may be small bowel wall thickening in the left abdomen that could be due to enteritis. Also, the appearance of the gastric fold thickening that could also be seen with gastritis. He has emphysema, has also nonobstructing 0.7-cm calculus in the right renal pelvis and there is some gas in the urinary bladder lumen, although this could be due to recent instrumentation. In any case, the patient was admitted, started on IV vancomycin and Zosyn as well as insulin. He was admitted initially to the ICU. We did consult the surgical team as well as infectious disease specialist. He was seen by Dr. Frey. However, there are no surgical issues with his presentation, did not require any intervention. The pneumoperitoneum is likely because of the recent postoperative change and he was seen also by the infectious disease specialist who continued the IV antibiotic in the form of vancomycin and Zosyn. Stool for C. diff by PCR was sent was negative. His white cell count came down steadily and his kidney function also improved. His creatinine came down from 1.5 to 1.2. His sodium and potassium has normalized and as he has completed antibiotic treatment, a decision was made to discharge him back to [facility] to continue the process of rehabilitation. PHYSICAL EXAMINATION: GENERAL: On day of discharge, the patient looked well and was clearly in no apparent respiratory distress, pale, cachectic, but no jaundice, cyanosis, or thyromegaly. No jugular venous distension. No limb edema. VITAL SIGNS: His heart rate was 98, blood pressure was 101/75, temperature was 98, respiratory rate was 18 and his oxygen saturation was 97% on room air. HEAD, EYES, EARS, NOSE AND THROAT: Showed normocephalic, atraumatic. NECK: Supple. HEART: Showed normal first and second sounds. No gallop, rub or murmur. CHEST: Clear to auscultation. No crepitation or rhonchi. ABDOMEN: Scaphoid, soft with colostomy in the left lower quadrant. There is no guarding or rigidity. No organomegaly. All hernial orifice intact. Bowel sounds normal. NEUROLOGIC: He was awake, alert, responding appropriately. All cranial nerves intact. He moves extremities without difficulty. LABORATORY DATA: His most recent lab work showed a white cell count of 11,600, hemoglobin 12, hematocrit 37, MCV 89 and platelet count of 780,000. His chemistry showed a serum sodium 136, potassium 4.6, chloride 99, bicarbonate 22, anion gap of 15, BUN 25, creatinine 1.2, estimated GFR was 58 mL per minute. His glucose was 305, calcium was 9.4. Total bilirubin, AST, ALT, alkaline phosphatase were normal. His total protein was 8, albumin was 3. His blood cultures were negative. DISCHARGE MEDICATIONS: He was discharged back to [facility] to continue on cefpodoxime 200 mg twice a day for 7 more days, oxycodone 5 mg every 6 hours as needed, albuterol sulfate 2 puffs every 6 hours, amlodipine besylate 5 mg daily, aspirin 81 mg once a day, atorvastatin calcium 40 mg at bedtime, Symbicort 1 puff twice a day, Soma 350 mg twice a day, carvedilol 12.5 mg twice a day, cholecalciferol for vitamin D3 2000 international units once a day, glimepiride 4 mg once a day, Lantus insulin 10 units at bedtime, lactobacillus rhamnosus 1 capsule twice a day, magnesium oxide 400 mg daily, metformin 500 mg twice a day with meals, multivitamin 1 tablet once a day, omeprazole 40 mg once a day, saliva stimulant agent 2 sprays every 15 minutes as needed and Brilinta 90 mg twice a day. FINAL DISCHARGE DIAGNOSES: 1. Sepsis, the source of which is not clear. The patient continued to be on antibiotic. Vancomycin was discontinued. He has been afebrile and his white cell count is trending down. He was discharged on cefpodoxime 200 mg twice a day. 2. , resolved. 3. Acute kidney injury, resolved. His creatinine came down from 1.5 to 1. 4. Transaminitis, improving. His alkaline phosphatase has normalized. AST, ALT continued to be slightly elevated. 5. Acute pancreatitis. His serum lipase continued to be slightly elevated at 613. 6. Persistent sinus tachycardia has resolved. He was seen in consultation by the journalism internship and his echocardiogram showed that his ejection fraction was 40% with global hypokinesis and his thyroid function was normal. CARL HENDERSON MD DR: BRITTNY/gloria JOB#: [id number] / [id number]
== END 2018-06-02 16:00 | disposition home or self-care (01) | DRG 871 ==
LOC: ER 19:10 → 1 WEST ICU 23:50 → 4 NORTH 05-27 17:01
PROVIDERS: ADMIT Internal Medicine; ATTEND Internal Medicine
DX: A41.9 Sepsis, unspecified organism (principal); K85.90 Acute pancreatitis without necrosis or infection, unspecified; N17.9 Acute kidney failure, unspecified; E87.0 Hyperosmolality and hypernatremia; E87.1 Hypo-osmolality and hyponatremia; I50.20 Unspecified systolic (congestive) heart failure; R64 Cachexia; Z68.1 Body mass index [BMI] 19.9 or less, adult; D64.9 Anemia, unspecified; E86.0 Dehydration; E87.6 Hypokalemia; E87.5 Hyperkalemia; E11.42 Type 2 diabetes mellitus with diabetic polyneuropathy; E11.65 Type 2 diabetes mellitus with hyperglycemia; E78.00 Pure hypercholesterolemia, unspecified; E78.5 Hyperlipidemia, unspecified; I11.0 Hypertensive heart disease with heart failure; I25.10 Atherosclerotic heart disease of native coronary artery without angina pectoris; J43.9 Emphysema, unspecified; M19.90 Unspecified osteoarthritis, unspecified site; K57.90 Diverticulosis of intestine, part unspecified, without perforation or abscess without bleeding; N28.1 Cyst of kidney, acquired; K21.9 Gastro-esophageal reflux disease without esophagitis; K52.9 Noninfective gastroenteritis and colitis, unspecified; N20.0 Calculus of kidney; N40.0 Benign prostatic hyperplasia without lower urinary tract symptoms; R65.20 Severe sepsis without septic shock; Z90.49 Acquired absence of other specified parts of digestive tract; Z91.040 Latex allergy status; Z93.2 Ileostomy status; Z95.5 Presence of coronary angioplasty implant and graft; Z79.899 Other long term (current) drug therapy; Z85.828 Personal history of other malignant neoplasm of skin; Z87.891 Personal history of nicotine dependence; Z79.84 Long term (current) use of oral hypoglycemic drugs
CPT/HCPCS: 36415; 71045; 74176; 76705; 80048; 80053; 80202; 81001; 82553; 82607; 82962; 83540; 83550; 83605; 83690; 84145; 84436; 84439; 84443; 84480; 84484; 85025; 85027; 85045; 85610; 85730; 86705; 86709; 86803; 87040; 87340; 87493; 87641; 93005; 93308; 93320; 93325; 96361; 96365; 96366; 96367; 96375; 99291; J1815; J2248; J2405; J2543; J3010; J3370; J3490; J7030; J7040; J7050; Q9966; 97116; 97530; 97535